=== PATIENT | male | born 1970 | race Caucasian/White ===

== ENCOUNTER → 2016-11-20 | Outpatient (CLI) | payer OTHER ==
[~2016-11-20] MED LIST: ACET-1311 PO; ALBUAER19 INH; AMPH10TA2 PO; AMPH30TA2 PO; CYCL10TA6 PO; ERGO1CAP35 PO; FLM4 PO; GABA-113 PO; HMLI SC; INSUINJ12 SC; LACT1CAP6 PO; LIRA18IN SQ; METF-384 PO; POTA1080 PO; XRL10 PO
[2016-11-20 11:47] LABS: BASO % 0.1 %; BASO ABS # 0.01 K/uL (0-0.2); COMPLETE YES; EOS % 2.8 %; HEMATOCRIT 41.2 % (42-52); IG% 0.5 %; LYMPH % 27.4 %; LYMPH ABS # 2.61 K/uL (1.2-3.4); MEAN CELL VOLUME 83.7 fL (80-100); MEAN CORPUSCULAR HEMOGLOBIN 30.3 pg (25-34); MEAN CORPUSCULAR HGB CONC 36.2 g/dl (32-36); MEAN PLATELET VOLUME 9.5 fL (7.4-10.4); MONO % 9.6 %; NEUT % 59.6 %; PLATELET COUNT 268 K/uL (130-400); RED BLOOD COUNT 4.92 M/uL (4.7-6.1); WHITE BLOOD COUNT 9.52 K/uL (4.8-10.8)
[2016-11-20 12:14] LABS: ESTIMATED AVERAGE GLUCOSE 183 mg/dl; HA1C FLAG Normal (Normal)
[2016-11-20 12:16] LABS: ALT/SGPT 20 U/L (12-78); AST/SGOT 13 U/L (15-37); BLOOD UREA NITROGEN 12 mg/dl (7-18); BUN/CREATININE RATIO 14.2 (10-20); CALCIUM 9.1 mg/dl (8.5-10.1); CARBON DIOXIDE 21 mmol/L (21-32); CHLORIDE 104 mmol/L (98-107); CREATININE 0.83 mg/dl (0.60-1.40); GLUCOSE 297 mg/dl (70-99); POTASSIUM 4.2 mmol/L (3.5-5.1); SODIUM 136 mmol/L (136-145)
[2016-11-20 12:18] LABS: ALB/GLOB RATIO 0.8 (0.9-2); ALKALINE PHOSPHATASE 117 U/L (45-117)
== END | disposition home or self-care (01) ==
LOC: C.LAB1850 10:46
PROVIDERS: ATTEND Internal Medicine
DX: N20.0 Calculus of kidney (principal); E55.9 Vitamin D deficiency, unspecified; E11.9 Type 2 diabetes mellitus without complications

== ENCOUNTER 2016-12-19 15:56 | Emergency (ER) | payer OTHER ==
[~2016-12-19] VITALS: Ht 188 cm; Wt 168.1 kg
[~2016-12-19 15:56] MED LIST changes: -CYCL10TA6 PO
[2016-12-19 16:05] VITALS: TEMP 36.5; Ht 188 cm; Wt 168.1 kg
[2016-12-19] MEDS ORDERED: CYCLOBENZAPRINE HCL 5 MG TAB PO ONE (16:45)
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
[2016-12-19 18:20] VITALS: BP 138/88; PULSE 87; O2SAT 98
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
[2016-12-19] MEDS ORDERED: CYCL10TA6 PO (18:31)
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
== END 2016-12-19 18:39 | disposition home or self-care (01) ==
LOC: EDBD 15:56 → C.EDB 15:57
DX: M54.2 Cervicalgia (principal); M54.6 Pain in thoracic spine; V43.52XA Car driver injured in collision with other type car in traffic accident, initial encounter; Y93.89 Activity, other specified; Y99.8 Other external cause status; E66.01 Morbid (severe) obesity due to excess calories; E11.42 Type 2 diabetes mellitus with diabetic polyneuropathy; Z68.42 Body mass index [BMI] 45.0-49.9, adult; F90.9 Attention-deficit hyperactivity disorder, unspecified type; Z72.0 Tobacco use; Z86.718 Personal history of other venous thrombosis and embolism; Z90.49 Acquired absence of other specified parts of digestive tract; Z89.439 Acquired absence of unspecified foot; Z79.01 Long term (current) use of anticoagulants; Z79.4 Long term (current) use of insulin; Z79.84 Long term (current) use of oral hypoglycemic drugs; Z79.899 Other long term (current) drug therapy

== ENCOUNTER → 2018-01-13 | Outpatient (CLI) | payer OTHER ==
--- NOTE | 2018-01-13 16:53 | DIAGNOSTIC IMAGING REPORT ---
BILATERAL LOWER EXTREMITY VENOUS DOPPLER CLINICAL HISTORY: Bilateral leg numbness. Decreased circulation. COMPARISON STUDY: Bilateral lower extremity venous Doppler December 13, 2015. TECHNIQUE: Sonography of the deep venous system of the bilateral lower extremities was performed. Compression and augmentation were evaluated. FINDINGS: This study is significantly compromised due to suboptimal penetration. The right common femoral, superficial femoral and popliteal veins are patent. There is suspected nonocclusive thrombus within the right posterior tibial and peroneal veins. There is nonocclusive thrombus within the left superficial femoral, profunda, popliteal, posterior tibial and peroneal veins. These vessels are not expanded. This thrombus is nonocclusive. Of note, thrombus was shown within these vessels on exam of December 13, 2015. IMPRESSION: Nonocclusive deep venous thrombus within the left superficial femoral, popliteal, posterior tibial and peroneal veins and within the right posterior tibial and peroneal veins. Evaluation is difficult given suboptimal penetration. This thrombus is age indeterminate however chronic thrombus is favored. Electronically signed by: Keagan Guthrie M.D. 01/13/2018 4:51 PM Dictated Date/Time: 01/13/2018 4:48 PM
--- NOTE | 2018-01-13 17:02 | DIAGNOSTIC IMAGING REPORT ---
BILATERAL LOWER EXTREMITY ARTERIAL DOPPLER ULTRASOUND CLINICAL HISTORY: Bilateral leg numbness. Decreased circulation. COMPARISON STUDY: No previous studies for comparison. TECHNIQUE: Grayscale and color and duplex Doppler sonography of the arterial systems of both lower extremity was performed. FINDINGS: The patient deferred ankle to brachial indices. This exam is compromised due to suboptimal penetration related to body habitus. Enlarged bilateral inguinal lymph nodes are unchanged from earlier exams. There is triphasic flow within the right common femoral, superficial femoral, popliteal, anterior tibial arteries. There is monophasic flow within the right posterior tibial and peroneal arteries with biphasic flow within the right dorsalis pedis. Mild atherosclerotic plaque is noted. There is biphasic flow within left common femoral artery. There is biphasic flow within the left superficial femoral, popliteal, anterior tibial arteries with monophasic flow within the left peroneal and dorsalis pedis. No elevated velocities were identified. IMPRESSION: 1. Exam compromised due to suboptimal penetration. 2. Mild atherosclerotic plaque without evidence for hemodynamically significant stenosis within either lower extremity. 3. Monophasic flow within multiple calf vessels, as described above. No vessel occlusion identified. 4. No change in enlarged bilateral inguinal lymph nodes which contain fatty twin. Electronically signed by: Keagan Guthrie M.D. 01/13/2018 5:01 PM Dictated Date/Time: 01/13/2018 4:56 PM
== END | disposition home or self-care (01) ==
LOC: C.ULTR 14:54
PROVIDERS: ATTEND Physician Assistant
DX: M79.672 Pain in left foot (principal); L89.899 Pressure ulcer of other site, unspecified stage; I82.412 Acute embolism and thrombosis of left femoral vein; I82.432 Acute embolism and thrombosis of left popliteal vein; I82.443 Acute embolism and thrombosis of tibial vein, bilateral; I82.493 Acute embolism and thrombosis of other specified deep vein of lower extremity, bilateral

== ENCOUNTER 2021-07-31 18:17 | Inpatient (IN) ==
[~2021-07-31 18:17] MED LIST changes: -ACET-1311 PO; -ALBUAER19 INH; -AMPH10TA2 PO; -AMPH30TA2 PO; -ERGO1CAP35 PO; +ETOMIDATE 2 MG/ML 20 ML VIAL IV ONE; -FLM4 PO; -GABA-113 PO; -HMLI SC; -INSUINJ12 SC; -LACT1CAP6 PO; -LIRA18IN SQ; -METF-384 PO; -POTA1080 PO; -XRL10 PO
[2021-07-31] MEDS ORDERED: ERTAPENEM SODIUM 10 ML IV STA (18:39)
[2021-07-31] MEDS ORDERED: DAPTOMYCIN IV ONE (18:39)
[2021-07-31] MEDS ORDERED: SODIUM CHLORIDE 0.9% 1000ML 1,000 ML IV SCH ×2 (18:45→19:45)
[2021-07-31] MEDS ORDERED: dexAMETHasone**PF** 10 MG/ML VIAL IV ONE (18:52)
[2021-07-31] MEDS ORDERED: ALBUT/IPRATROP 3MG/0.5MG NEB 3 ML VIAL NEB STA (18:52)
--- NOTE | 2021-07-31 18:55 | Emergency Department Note ---
Impression & Plan Sepsis, Dehydration, Cellulitis ED Provider Note NAME: PHILIPP WILLAMS AGE: 51 SEX: M : 1970 ARRIVES VIA: Ambulance INFORMANT: Patient, ED PROVIDER(S): uMshtaq Hernandez MD Chief Complaint: Chills, shortness of breath, cough HPI: Patient does present with the above symptoms. Patient states that he woke up in the middle the night and felt very chilled and has developed a cough. Patient states it is nonproductive. The patient is a non-smoker. Patient denies any abdominal pains or chest pains. The patient is vaccinated for COVID- 19. The patient does not wear oxygen at baseline. The patient states that his leg felt as though it was on fire. The patient does have a known history of PE and is on blood thinning medication Xarelto. The patient states that he has been compliant with his medications. Patient denies any headache or neck pain. The patient denies any abdominal pain nausea or vomiting. The patient has had some bad diarrhea today. Patient denies any recent antibiotic use. ROS: See HPI for pertinent positives and negatives. A total of 10 systems were reviewed and otherwise negative. Past medical history: See below Surgical history: See below Social history: See below Physical Exam: GENERAL: Severe distress, ill in appearance, wearing a mask, nasal cannula in place. EYE EXAM: Normal conjunctiva. PERRL, no anisocoria and EOM's grossly intact w/o pain. NECK: Supple, no nuchal rigidity, no adenopathy, non-tender. No signs of meningismus. LUNGS: Tachypnea, crackles throughout. HEART: Tachycardic and regular, no MRG. ABDOMEN: Abdomen soft, non-tender, normo-active bowel sounds, no masses, no rebound or guarding. BACK: No CVA TTP. SKIN: No rashes and no bruising. UPPER EXTREMITIES: Upper extremities are grossly normal. LOWER EXTREMITIES: Left lower extremity BKA noted, right lower extremity with redness, no crepitus and compartments are soft. NEURO EXAM: A&O x3, cranial nerves II-XII grossly intact, normal speech, moves all 4 extremities on command w/o issue. Differential diagnoses: Reactive airway disease, pneumonia, pneumothorax, COPD, CHF, infections, cardiac ischemia, pulmonary embolism, musculoskeletal, gastrointestinal, as well as other pathologies. Course: Patient was seen and evaluated the bedside. Full history physical exam was performed. [EKG interpreted by me] Sinus tachycardia, rate of 120, normal intervals, no ST changes. Imaging Studies: See Below [Cardiac monitoring: An order was placed for continuous cardiac monitoring. The monitor shows a rate of 125 with tachycardic and regular rhythm.] MDM: Patient was seen due to concern for likely sepsis. Blood work was obtained and the patient was ordered empiric antibiotics. Given the concern for respiratory distress the patient was placed on BiPAP steroids and duo nebs were ordered as well along with IV fluids. The patient did show some symptomatic improvement in his respiratory rate. The patient does have a significant white blood cell count of 31,000. Patient does have a procalcitonin of 34. Slightly low magnesium. Glucose is elevated. Patient does have changes in kidney function. The patient's chest x-ray did show concern for possible volume overload. I did attempt to do a bedside ultrasound but this was difficult to perform but I did think the IVC appeared to be flat. Difficult to visualize cardiac function. Patient did have some scant B-lines in the lungs but believe this certainly could be secondary to the patient's infectious process. The patient does have lactic acidosis with a troponin of 18. The patient is not complained of chest pains only shortness of breath. Patient's EKG morphology appears grossly unchanged. I did speak with Dr. Sara tijerina given the lack of chest pain and overt EKG changes would not start heparin. I did speak with the on-call hospitalist Dr. Caceres and the patient was admitted to the medicine service. The patient does not have findings consistent with necrotizing fasciitis of the right lower extremity. The patient certainly could have a cellulitis. Patient does not complain of any abdominal pain. Do not believe the patient has mesenteric ischemia. Past Med/Surg History Medical History Depression Diabetes type 2, uncontrolled Diabetic peripheral neuropathy associated with type 2 diabetes mellitus DVT (deep venous thrombosis) (08/16/13) Dysesthesia Dyslipidemia Hypertension Personal history of diabetic foot ulcer Vitamin D deficiency Surgical History S/P hernia repair S/P PICC central line placement with removal S/P rotator cuff repair Family History Aunt No problems noted. Grandmother (Maternal) Throat cancer Myocardial infarction Grandfather (Maternal) Myocardial infarction Other Coronary heart disease Diabetes No pertinent family history Denies family history of Ovarian cancer Prostate cancer Breast cancer Colorectal cancer Social History Smoking Status: Never smoker Tobacco Type: Cigarettes Hx Alcohol Use: No Hx Substance Use: No Preferred Language: Guinean Communication Ability: Unable Beliefs That Will Affect Care: None marital status: Current Living Situation: Spouse current occupational status: disabled How many Children do You have: 2 Feels Safe at Home: Yes Safety Concerns: Feels Safe At This Time Physical Activity Frequency: Does not Exercise Seatbelt Use: always Sunscreen Use: Yes Assistive Devices: Walker and Wheelchair Allergies Allergies Allergy/AdvReac Type Severity Reaction Status Date / Time clindamycin Allergy Intermediate Hives Verified 07/31/21 20:35 cefepime Allergy Mild RASH-POSSIBLY Verified 07/31/21 20:35 DUE TO CEFEPIME vancomycin AdvReac Intermediate KYE Verified 07/31/21 20:35 SYNDROME piperacillin [From Zosyn] AdvReac Mild skin rash, Verified 07/31/21 20:35 itching, mild tazobactam [From Zosyn] AdvReac Mild skin rash, Verified 07/31/21 20:35 itching, mild Home Meds Previous Rx's Medication Instructions Recorded pen needle, diabetic 29 gauge x #100 ea 03/14/20 1/2" (Comfort EZ Pen Hickman) semaglutide 1 mg/dose (2 mg/1.5 1 mg SQ WEEKLY #3 ml 03/19/20 mL) subcutaneous pen injector (Ozempic) cane #1 ea 08/03/20 blood sugar diagnostic (OneTouch #100 ea 09/05/20 Ultra Blue Test Strip) fluoxetine 20 mg capsule 60 mg PO DAILY #270 cap 12/06/20 cholecalciferol (vitamin D3) 125 5,000 unit PO DAILY #90 tab 01/14/21 mcg (5,000 unit) tablet (Vitamin D3) insulin aspar prot-insulin aspart 60 - 100 unit SUBCUT TID #75 ml 01/14/21 100 unit/mL (70-30) subcutaneous pen (Novolog Mix 70-30FlexPen U-100) albuterol sulfate 90 mcg/actuation 2 puff INHALATION Q6H PRN #18 gm 03/12/21 aerosol inhaler (Ventolin HFA) gabapentin 600 mg tablet 600 mg PO DAILY #90 tab 03/26/21 lisinopril 2.5 mg tablet 2.5 mg PO DAILY #90 tab 03/26/21 venlafaxine 75 mg capsule,extended 75 mg PO DAILY #90 cap 03/26/21 release 24 hr (Effexor XR) furosemide 40 mg tablet (Lasix) 40 mg PO BID #180 tab 04/25/21 rosuvastatin 5 mg tablet 5 mg PO DAILY #90 tab 04/30/21 Dexcom G6 Stakes Player (blood-glucose #1 ea NS 07/16/21 meter,continuous) Dexcom G6 Sensor (blood-glucose #3 ea NS 07/16/21 sensor) Dexcom G6 Transmitter #1 ea NS 07/16/21 (blood-glucose transmitter) cetirizine 10 mg tablet 10 mg PO DAILY #90 tab 07/25/21 doxepin 10 mg capsule 10 mg PO DAILY #30 cap 07/25/21 hydroxyzine HCl 25 mg tablet 25 mg PO DAILY PRN #30 tab 07/25/21 rivaroxaban 20 mg tablet 20 mg PO QAM #90 tab 07/26/21 semaglutide (weight loss) 1.7 1.7 mg SUBCUT Q7D #3 ml 07/26/21 mg/0.75 mL subcutaneous pen injector (Weyessyvy) topiramate 25 mg tablet 25 mg PO HS #60 tab 07/31/21 Results & Data (ED) Vital Signs Vital Signs - 24 hr 07/31/21 18:28 07/31/21 18:37 07/31/21 18:43 Temperature 39.3 C H Temperature Source Oral Pulse Rate 118 H 126 H 119 H Pulse Rate [Finger] Pulse Rate from SpO2 Sensor 126 H Respiratory Rate 44 H 40 H 38 H Respiratory Effort / Characteristics Labored Spontaneous Labored Short of Breath Respiratory Depth Respiratory Pattern Tachypnea Blood Pressure 133/67 Blood Pressure Mean 89 Pulse Oximetry 91 95 98 Oxygen Delivery Method Room Air Fraction of Inspired Oxygen 30 Sepsis Recent Fever Within 48 Hours Yes Sepsis New/Unexplained Change in Mental Status N/A Sepsis Action Taken by Nursing Physician Notified 07/31/21 19:11 07/31/21 19:16 07/31/21 19:30 Temperature Temperature Source Pulse Rate 118 H 126 H Pulse Rate [Finger] 118 H Pulse Rate from SpO2 Sensor 122 H 126 H Respiratory Rate 38 H 26 H Respiratory Effort / Characteristics Spontaneous Labored Short of Breath Respiratory Depth Deep Respiratory Pattern Tachypnea Blood Pressure Blood Pressure Mean Pulse Oximetry 96 96 97 Oxygen Delivery Method BiPAP Fraction of Inspired Oxygen 30 Sepsis Recent Fever Within 48 Hours Sepsis New/Unexplained Change in Mental Status Sepsis Action Taken by Nursing 07/31/21 20:00 07/31/21 20:20 07/31/21 20:30 Temperature Temperature Source Pulse Rate 119 H 126 H Pulse Rate [Finger] Pulse Rate from SpO2 Sensor 119 H 116 H Respiratory Rate 33 H 29 H Respiratory Effort / Characteristics Spontaneous Labored Short of Breath Respiratory Depth Deep Respiratory Pattern Tachypnea Blood Pressure Blood Pressure Mean Pulse Oximetry 97 98 98 Oxygen Delivery Method Fraction of Inspired Oxygen 30 Sepsis Recent Fever Within 48 Hours Sepsis New/Unexplained Change in Mental Status Sepsis Action Taken by Nursing 07/31/21 21:00 07/31/21 21:30 07/31/21 21:50 Temperature Temperature Source Pulse Rate 119 H 116 H Pulse Rate [Finger] Pulse Rate from SpO2 Sensor 118 H 119 H Respiratory Rate 30 H 30 H Respiratory Effort / Characteristics Spontaneous Respiratory Depth Deep Respiratory Pattern Blood Pressure 128/61 Blood Pressure Mean 83 Pulse Oximetry 97 97 95 Oxygen Delivery Method Fraction of Inspired Oxygen 30 Sepsis Recent Fever Within 48 Hours Sepsis New/Unexplained Change in Mental Status Sepsis Action Taken by Jail Medications Current Medication List: was personally reviewed by me Laboratory Data Attestation: I reviewed the patient's lab results. Result diagrams: 07/31/21 19:00 07/31/21 19:00 Lab Results 07/31/21 07/31/21 07/31/21 Range/Units 18:35 19:00 19:00 WBC 31.17 H* (4.8-10.8) K/uL RBC 4.92 (4.7-6.1) M/uL Hgb 15.2 (14.0-18.0) g/dL Hct 42.6 (42-52) % MCV 86.6 (80-100) fL MCH 30.9 (25-34) pg MCHC 35.7 (32-36) g/dL RDW Std Deviation 43.7 (36.4-46.3) fL RDW Coeff of Wil 13.8 (11.5-14.5) % Plt Count 200 (130-400) K/uL MPV 9.6 (7.4-10.4) fL Immature Gran % (Auto) 2.2 % Neut % (Auto) 91.4 % Lymph % (Auto) 1.8 % [place] % (Auto) 4.6 % Eos % (Auto) 0.0 % Baso % (Auto) 0.0 % Neut # (Auto) 28.48 H (1.4-6.5) K/uL Lymph # (Auto) 0.55 L (1.2-3.4) K/uL [place] # (Auto) 1.42 H (0.11-0.59) K/uL Eos # (Auto) 0.01 (0-0.5) K/uL Baso # (Auto) 0.01 (0-0.2) K/uL Immature Gran # (Auto) 0.70 H (0.00-0.02) K/uL Polychromasia 1+ PT 13.1 H (9.0-12.0) Seconds INR 1.3 H (0.9-1.1) APTT 26.2 (21.0-31.0) Seconds PTT Ratio 1.0 Sodium (136-145) mmol/L Potassium (3.5-5.1) mmol/L Chloride (98-107) mmol/L Carbon Dioxide (21-32) mmol/L Anion Gap (3-11) BUN (7-18) mg/dl Creatinine (0.6-1.4) mg/dl Est Cr Clr Drug Dosing ml/min Est GFR ( Amer) ml/min Est GFR (Non-Af Amer) ml/min BUN/Creatinine Ratio (10-20) Glucose (70-99) mg/dl Lactate (0.4-2.0) mmol/L Calcium (8.5-10.1) mg/dl Magnesium (1.8-2.4) mg/dl Total Bilirubin (0.2-1) mg/dl AST (15-37) U/L ALT (12-78) U/L Alkaline Phosphatase (45-117) U/L Troponin I (0-0.045) ng/ml Total Protein (6.4-8.2) gm/dl Albumin (3.4-5.0) gm/dl Globulin (2.5-4.0) gm/dl Albumin/Globulin Ratio (0.9-2) Beta-Hydroxybutyric Acd (0.2-2.81) mg/dl Procalcitonin (0-0.5) ng/ml Urine Color Dark Yellow Urine Appearance Cloudy A (Clear) Urine pH 5.0 (4.5-7.5) Ur Specific [place] 1.018 (1.000-1.030) Urine Protein 1+ H (Negative) Urine Glucose (UA) Negative (Negative) Urine Ketones Trace H (Negative) Urine Blood 2+ H (Negative) Urine Nitrite Negative (Negative) Urine Bilirubin 1+ H (Negative) Urine Urobilinogen Negative (Negative) Ur Leukocyte Esterase Trace H (Negative) Urine WBC (Auto) 10-30 H (0-5) /hpf Urine RBC (Auto) 0-4 (0-4) /hpf U Hyaline Cast (Auto) 1-5 (0-5) /lpf U Epithel Cells (Auto) >30 H (0-5) /lpf Urine Bacteria (Auto) Negative (Negative) Ur Renal Epithelial Cell Not Reportable Calcium Oxalate Crystal Present A (None Prsent) Urine Yeast Not Reportable Urine Sperm Present A (None Prsent) Adenovirus (PCR) (NotDetected) B. pertussis DNA (PCR) (NotDetected) B.parapertussis DNA PCR (NotDetected) C. pneumoniae DNA (PCR) (NotDetected) Coronavirus OC43 (PCR) (NotDetected) Coronavirus HKU1 (PCR) (NotDetected) Coronavirus 229E (PCR) (NotDetected) COVID-19 Eval Order SARS-CoV-2 (PCR) (NotDetected) Coronavirus NL63 (PCR) (NotDetected) Human Metapneumovir PCR (NotDetected) Influenza Type A (PCR) (NotDetected) Influenza Type B (PCR) (NotDetected) M. pneumoniae (PCR) (NotDetected) Parainfluenza 1 (PCR) (NotDetected) Parainfluenza 2 (PCR) (NotDetected) Parainfluenza 3 (PCR) (NotDetected) Parainfluenza 4 (PCR) (NotDetected) RSV (PCR) (NotDetected) Entero/Rhino (PCR) (NotDetected) 07/31/21 07/31/21 07/31/21 Range/Units 19:00 19:00 19:05 WBC (4.8-10.8) K/uL RBC (4.7-6.1) M/uL Hgb (14.0-18.0) g/dL Hct (42-52) % MCV (80-100) fL MCH (25-34) pg MCHC (32-36) g/dL RDW Std Deviation (36.4-46.3) fL RDW Coeff of Wil (11.5-14.5) % Plt Count (130-400) K/uL MPV (7.4-10.4) fL Immature Gran % (Auto) % Neut % (Auto) % Lymph % (Auto) % [place] % (Auto) % Eos % (Auto) % Baso % (Auto) % Neut # (Auto) (1.4-6.5) K/uL Lymph # (Auto) (1.2-3.4) K/uL [place] # (Auto) (0.11-0.59) K/uL Eos # (Auto) (0-0.5) K/uL Baso # (Auto) (0-0.2) K/uL Immature Gran # (Auto) (0.00-0.02) K/uL Polychromasia PT (9.0-12.0) Seconds INR (0.9-1.1) APTT (21.0-31.0) Seconds PTT Ratio Sodium 127 L (136-145) mmol/L Potassium 4.6 (3.5-5.1) mmol/L Chloride 96 L (98-107) mmol/L Carbon Dioxide 18 L (21-32) mmol/L Anion Gap 13.0 H (3-11) BUN 33 H (7-18) mg/dl Creatinine 2.40 H (0.6-1.4) mg/dl Est Cr Clr Drug Dosing 65.0 ml/min Est GFR ( Amer) 34.4 ml/min Est GFR (Non-Af Amer) 29.7 ml/min BUN/Creatinine Ratio 13.7 (10-20) Glucose 312 H* (70-99) mg/dl Lactate 5.0 H* (0.4-2.0) mmol/L Calcium 8.7 (8.5-10.1) mg/dl Magnesium 1.2 L (1.8-2.4) mg/dl Total Bilirubin 1.4 H (0.2-1) mg/dl AST 131 H (15-37) U/L ALT 47 (12-78) U/L Alkaline Phosphatase 64 (45-117) U/L Troponin I 18.600 H* (0-0.045) ng/ml Total Protein 7.5 (6.4-8.2) gm/dl Albumin 3.1 L (3.4-5.0) gm/dl Globulin 4.4 H (2.5-4.0) gm/dl Albumin/Globulin Ratio 0.7 L (0.9-2) Beta-Hydroxybutyric Acd 2.99 H (0.2-2.81) mg/dl Procalcitonin 34.07 H (0-0.5) ng/ml Urine Color Urine Appearance (Clear) Urine pH (4.5-7.5) Ur Specific [place] (1.000-1.030) Urine Protein (Negative) Urine Glucose (UA) (Negative) Urine Ketones (Negative) Urine Blood (Negative) Urine Nitrite (Negative) Urine Bilirubin (Negative) Urine Urobilinogen (Negative) Ur Leukocyte Esterase (Negative) Urine WBC (Auto) (0-5) /hpf Urine RBC (Auto) (0-4) /hpf U Hyaline Cast (Auto) (0-5) /lpf U Epithel Cells (Auto) (0-5) /lpf Urine Bacteria (Auto) (Negative) Ur Renal Epithelial Cell Calcium Oxalate Crystal (None Prsent) Urine Yeast Urine Sperm (None Prsent) Adenovirus (PCR) (NotDetected) B. pertussis DNA (PCR) (NotDetected) B.parapertussis DNA PCR (NotDetected) C. pneumoniae DNA (PCR) (NotDetected) Coronavirus OC43 (PCR) (NotDetected) Coronavirus HKU1 (PCR) (NotDetected) Coronavirus 229E (PCR) (NotDetected) COVID-19 Eval Order SARS-CoV-2 (PCR) (NotDetected) Coronavirus NL63 (PCR) (NotDetected) Human Metapneumovir PCR (NotDetected) Influenza Type A (PCR) (NotDetected) Influenza Type B (PCR) (NotDetected) M. pneumoniae (PCR) (NotDetected) Parainfluenza 1 (PCR) (NotDetected) Parainfluenza 2 (PCR) (NotDetected) Parainfluenza 3 (PCR) (NotDetected) Parainfluenza 4 (PCR) (NotDetected) RSV (PCR) (NotDetected) Entero/Rhino (PCR) (NotDetected) 07/31/21 07/31/21 07/31/21 Range/Units 19:10 19:10 21:09 WBC (4.8-10.8) K/uL RBC (4.7-6.1) M/uL Hgb (14.0-18.0) g/dL Hct (42-52) % MCV (80-100) fL MCH (25-34) pg MCHC (32-36) g/dL RDW Std Deviation (36.4-46.3) fL RDW Coeff of Wil (11.5-14.5) % Plt Count (130-400) K/uL MPV (7.4-10.4) fL Immature Gran % (Auto) % Neut % (Auto) % Lymph % (Auto) % [place] % (Auto) % Eos % (Auto) % Baso % (Auto) % Neut # (Auto) (1.4-6.5) K/uL Lymph # (Auto) (1.2-3.4) K/uL [place] # (Auto) (0.11-0.59) K/uL Eos # (Auto) (0-0.5) K/uL Baso # (Auto) (0-0.2) K/uL Immature Gran # (Auto) (0.00-0.02) K/uL Polychromasia PT (9.0-12.0) Seconds INR (0.9-1.1) APTT (21.0-31.0) Seconds PTT Ratio Sodium (136-145) mmol/L Potassium (3.5-5.1) mmol/L Chloride (98-107) mmol/L Carbon Dioxide (21-32) mmol/L Anion Gap (3-11) BUN (7-18) mg/dl Creatinine (0.6-1.4) mg/dl Est Cr Clr Drug Dosing ml/min Est GFR ( Amer) ml/min Est GFR (Non-Af Amer) ml/min BUN/Creatinine Ratio (10-20) Glucose (70-99) mg/dl Lactate 4.2 H* (0.4-2.0) mmol/L Calcium (8.5-10.1) mg/dl Magnesium (1.8-2.4) mg/dl Total Bilirubin (0.2-1) mg/dl AST (15-37) U/L ALT (12-78) U/L Alkaline Phosphatase (45-117) U/L Troponin I (0-0.045) ng/ml Total Protein (6.4-8.2) gm/dl Albumin (3.4-5.0) gm/dl Globulin (2.5-4.0) gm/dl Albumin/Globulin Ratio (0.9-2) Beta-Hydroxybutyric Acd (0.2-2.81) mg/dl Procalcitonin (0-0.5) ng/ml Urine Color Urine Appearance (Clear) Urine pH (4.5-7.5) Ur Specific [place] (1.000-1.030) Urine Protein (Negative) Urine Glucose (UA) (Negative) Urine Ketones (Negative) Urine Blood (Negative) Urine Nitrite (Negative) Urine Bilirubin (Negative) Urine Urobilinogen (Negative) Ur Leukocyte Esterase (Negative) Urine WBC (Auto) (0-5) /hpf Urine RBC (Auto) (0-4) /hpf U Hyaline Cast (Auto) (0-5) /lpf U Epithel Cells (Auto) (0-5) /lpf Urine Bacteria (Auto) (Negative) Ur Renal Epithelial Cell Calcium Oxalate Crystal (None Prsent) Urine Yeast Urine Sperm (None Prsent) Adenovirus (PCR) Not Detected (NotDetected) B. pertussis DNA (PCR) Not Detected (NotDetected) B.parapertussis DNA PCR Not Detected (NotDetected) C. pneumoniae DNA (PCR) Not Detected (NotDetected) Coronavirus OC43 (PCR) Not Detected (NotDetected) Coronavirus HKU1 (PCR) Not Detected (NotDetected) Coronavirus 229E (PCR) Not Detected (NotDetected) COVID-19 Eval Order [facility]NP at [facility] SARS-CoV-2 (PCR) Not Detected (NotDetected) Coronavirus NL63 (PCR) Not Detected (NotDetected) Human Metapneumovir PCR Not Detected (NotDetected) Influenza Type A (PCR) Not Detected (NotDetected) Influenza Type B (PCR) Not Detected (NotDetected) M. pneumoniae (PCR) Not Detected (NotDetected) Parainfluenza 1 (PCR) Not Detected (NotDetected) Parainfluenza 2 (PCR) Not Detected (NotDetected) Parainfluenza 3 (PCR) Not Detected (NotDetected) Parainfluenza 4 (PCR) Not Detected (NotDetected) RSV (PCR) Not Detected (NotDetected) Entero/Rhino (PCR) Not Detected (NotDetected) Administered Medications Magnesium Sulfate/Dextrose (Magnesium Sulfate / D5w) 1 gm in 100 mls @ 50 mls/hr IV Q2H [facility] Stop: 08/01/21 03:29 Last Admin: 07/31/21 23:45 Dose: 50 mls/hr Documented by: [id number] Infusion: 07/31/21 23:22 Dose: 50 mls/hr Documented by: [id number] Admin: 07/31/21 21:22 Dose: 50 mls/hr Documented by: [id number] Insulin Human Regular 250 (units/ Sodium Chloride) 250 mls @ 5 mls/hr IV .Q24H ST[facility]LEY; Protocol Stop: 08/30/21 21:59 Last Admin: 07/31/21 23:31 Dose: 5 units/hr, 5 mls/hr Documented by: [id number] Cosigned by: [id number] Heparin Sodium/Dextrose (Heparin Sodium/Dextrose) 25,000 units in 500 mls @ 20 mls/hr IV .Q24H [facility]; Protocol Stop: 08/30/21 23:14 Last Admin: 07/31/21 23:34 Dose: 1,000 units/hr, 20 mls/hr Documented by: [id number] Cosigned by: [id number] Famotidine 20 mg/ Syringe 5 mls @ 2.5 mls/min IV Q12 [facility] Stop: 08/30/21 23:05 Last Admin: 07/31/21 23:32 Dose: 2.5 mls/min Documented by: [id number] Linezolid (Zyvox) 600 mg in 300 mls @ 200 mls/hr IV Q12H [facility]; Protocol Stop: 08/08/21 00:00 Last Admin: 07/31/21 23:57 Dose: 200 mls/hr Documented by: [id number] Discontinued Medications Albuterol (Albut/Ipratrop 3mg/0.5mg Neb 3 Ml Vial) 6 ml NEB NOW STA Stop: 07/31/21 18:53 Last Admin: 07/31/21 19:10 Dose: 6 ml Documented by: [id number] Dexamethasone Sodium Phosphate (DexamethasonePf 10 Mg/Ml Vial) 10 mg IV NOW ONE Stop: 07/31/21 18:53 Last Admin: 07/31/21 19:18 Dose: 10 mg Documented by: [id number] Sodium Chloride (Nss 1000ml) 1,000 mls @ 999 mls/hr IV .Q1H1M [place] Stop: 07/31/21 19:39 Last Admin: 07/31/21 19:49 Dose: 999 mls/hr Documented by: [id number] Sodium Chloride (Nss 1000ml) 1,000 mls @ 999 mls/hr IV .Q1H1M [place] Stop: 07/31/21 20:45 Last Admin: 07/31/21 21:13 Dose: Not Given Documented by: [id number] Ertapenem (Invanz) 10 mls @ 2 mls/min IV NOW STA Stop: 07/31/21 18:43 Last Admin: 07/31/21 19:48 Dose: 2 mls/min Documented by: [id number] Daptomycin 775 mg/ Syringe 15.5 mls @ 7.75 mls/min IV ONE ONE; Protocol Stop: 07/31/21 19:31 Last Admin: 07/31/21 19:49 Dose: 7.75 mls/min Documented by: [id number] Acetaminophen (Ofirmev) 1,000 mg in 100 mls @ 400 mls/hr IV NOW STA Stop: 07/31/21 20:47 Last Infusion: 07/31/21 23:26 Dose: 0 mls/hr Documented by: [id number] Admin: 07/31/21 21:00 Dose: 400 mls/hr Documented by: [id number] Insulin Human Regular 5 units/ (Syringe) 5 mls @ 0 mls/min IV 2330 ONE Stop: 07/31/21 23:31 Last Admin: 07/31/21 23:31 Dose: 5 mls/min Documented by: [id number] Cosigned by: [id number] Miscellaneous (Insulin Protocol Goal Range ) 1 ea N/A ONE ONE Stop: 07/31/21 21:59 Last Admin: 07/31/21 23:32 Dose: 1 ea Documented by: [id number] Miscellaneous (Stat Iv Infusion Titration Per Protocol) 1 ea N/A NOW STA Stop: 07/31/21 21:59 Last Admin: 07/31/21 23:32 Dose: 1 ea Documented by: [id number] Imaging Data Radiologist's Impression: Chest X-Ray 07/31/21 18:39 SINGLE VIEW CHEST CLINICAL HISTORY: Sepsis. FINDINGS: 2 AP, portable, upright chest radiographs are compared to study dated 06/30/2016. The heart is enlarged noting atherosclerotic calcification of the thoracic aorta. There is pulmonary vascular congestion. There are mild bilateral airspace opacities patchy No large pleural effusion or pneumothorax is seen. The skeletal structures appear osteopenic. The bony thorax is grossly intact. IMPRESSION: 1. Cardiomegaly with evidence of congestive failure. 2. Scattered bilateral airspace opacities likely represent mild pulmonary edema. Correlate clinically for evidence of a superimposed infectious/inflammatory pneumonitis. ACT 112: Negative or not required by law. Electronically signed by: Damon Soliz M.D. 07/31/2021 7:[address] 07/31/21 21:48 CT foot RT wo con INDICATION: MN ^Osteomyelitis TECHNIQUE: Multidetector row helical CT of the right foot was performed without intravenous contrast. Coronal and sagittal reformations were obtained. Automated dose lowering techniques and/or adjustment according to patient size were utilized for this examination. Comparison: None available at the time of this dictation. FINDINGS: There is an acute to subacute nondisplaced fracture of the first digit proximal phalanx extending to the first metacarpophalangeal joint. No evidence of focal erosion seen to suggest osteomyelitis. Soft tissue swelling is seen most prominent in the dorsal surface of the foot, compatible with cellulitis. IMPRESSION: 1. Cellulitis without evidence of osteomyelitis. 2. Acute to subacute intra-articular fracture of the first digit proximal phalanx. ACT 112: Negative or not required by law. Electronically signed by: Aroldo Levy M.D. 07/31/2021 11:[address] 07/31/21 21:48 CT tib/fib RT wo con INDICATION: MN ^Osteomyelitis? TECHNIQUE: Multidetector row helical CT of the right tibia and fibula was performed without intravenous contrast. Coronal and sagittal reformations were obtained. Automated dose lowering techniques and/or adjustment according to patient size were utilized for this examination. Comparison: None available at the time of this dictation. FINDINGS: The osseous structures are without fracture or dislocation. No focal lucencies are seen to suggest osteomyelitis. Diffuse soft tissue swelling is seen compatible with cellulitis. Mild narrowing of the joint spaces knee noted. IMPRESSION: Soft tissue swelling compatible with cellulitis without evidence of bony erosion to suggest osteomyelitis. ACT 112: Negative or not required by law. Electronically signed by: Aroldo Levy M.D. 07/31/2021 11:[address] 07/31/21 21:59 CT chest diagnostic wo con INDICATION: MN ^Pulm infiltrates. TECHNIQUE: Multidetector row helical CT of the chest was performed. Coronal and sagittal reformations were obtained. Automated dose lowering techniques and/or adjustment according to patient size were utilized for this exam. Comparison: None available at the time of this dictation. FINDINGS: Lungs and pleura: Atelectasis versus scarring is seen in the dependent portions of the lungs. Heart and pericardium: Heart size is normal. No pericardial effusion. Vessels: Moderate atherosclerotic changes in the aorta and coronary arteries. Mediastinum and twin: Unremarkable. Chest wall and lower neck: Unremarkable. Abdomen: Hepatic steatosis is seen. Multiple splenules are seen. Patient is status post cholecystectomy. There is a small hiatal hernia. Bones: Degenerative changes in the thoracic spine. IMPRESSION: No evidence of pneumonia. Bilateral atelectasis versus scarring is seen. Additional findings as above. ACT 112: Negative or not required by law. Electronically signed by: Aroldo Levy M.D. 07/31/2021 11:07 PM Discharge Plan Visit Data Chief Complaint: Fall Stated Complaint: FALL ED Provider: Mushtaq Hernandez Discharge Problem: Sepsis, Dehydration, Cellulitis Patient Disposition: Admitted As Inpatient Discharge Instructions Interventions: ED Discharge Assessment Last Done: 07/31/21 23:00
[2021-07-31 18:59] LABS: Appearance Urine Cloudy (Clear); Bacteria Urine Automated Negative (Negative); Blood Urine 2+ (Negative); Color Urine Dark Yellow; Epithelial Cell Urine Auto >30 /lpf (0-5); Glucose Urine UA Negative (Negative); Ketones Urine Trace (Negative); Leukocyte Esterase Urine Trace (Negative); Nitrite Urine Negative (Negative); Protein Urine 1+ (Negative); RBC Urine Automated 0-4 /hpf (0-4); Specific Gravity Urine 1.018 (1.000-1.030); Urobilinogen Urine Negative (Negative)
[2021-07-31 19:01] LABS: Bilirubin Urine 1+ (Negative)
--- NOTE | 2021-07-31 19:04 | XRay Report ---
SINGLE VIEW CHEST CLINICAL HISTORY: Sepsis. FINDINGS: 2 AP, portable, upright chest radiographs are compared to study dated 06/30/2016. The heart is enlarged noting atherosclerotic calcification of the thoracic aorta. There is pulmonary vascular c ongestion. There are mild bilateral airspace opacities patchy No large pleural effusion or pneumothor ax is seen. The skeletal structures appear osteopenic. The bony thorax is grossly intact. IMPRESSION: 1. Cardiomegaly with evidence of congestive failure. 2. Scattered bilateral airspace opacities likely represent mild pulmonary edema. Correlate clinically for evidence of a superimposed infectious/inflammatory pneumonitis. ACT 112: Negative or not required by law. Electronically signed by: Damon Soliz M.D. 07/31/2021 7:02 PM
[2021-07-31 19:08] LABS: Calcium Oxalate Crystals Urine Present (None Prsent); Sperm Urine Present (None Prsent)
[2021-07-31] MEDS ORDERED: DAPTOmycin 775 MG in SYRINGE 0 ML IV ONE (19:30)
[2021-07-31 19:33] LABS: INR 1.3 (0.9-1.1); Partial Thromboplastin Time 26.2 Seconds (21.0-31.0); Prothrombin Time 13.1 Seconds (9.0-12.0)
[2021-07-31 19:47] LABS: Albumin Globulin Ratio 0.7 (0.9-2); Albumin Level 3.1 gm/dl (3.4-5.0); BUN Creatinine Ratio 13.7 (10-20); Bilirubin,Total 1.4 mg/dl (0.2-1); Calcium 8.7 mg/dl (8.5-10.1); Est GFR (African American) 34.4 ml/min; Est GFR (Non-African American) 29.7 ml/min; Globulin 4.4 gm/dl (2.5-4.0); Magnesium 1.2 mg/dl (1.8-2.4); Potassium 4.6 mmol/L (3.5-5.1); Total Protein 7.5 gm/dl (6.4-8.2); Troponin I 18.6 ng/ml (0-0.045)
[2021-07-31 20:00] LABS: Beta-Hydroxybutyrate 2.99 mg/dl (0.2-2.81)
[2021-07-31 20:10] LABS: Hematocrit (blood only) 42.6 % (42-52); Hemoglobin 15.2 g/dL (14.0-18.0); Mean Corpuscular Hemoglobin 30.9 pg (25-34); Mean Corpuscular Hgb Conc 35.7 g/dL (32-36); Mean Corpuscular Volume 86.6 fL (80-100); Mean Platelet Volume 9.6 fL (7.4-10.4); Platelet Count 200 K/uL (130-400); RDW Coefficient of Variation 13.8 % (11.5-14.5); RDW Standard Deviation 43.7 fL (36.4-46.3); Red Blood Count 4.92 M/uL (4.7-6.1); White Blood Count 31.17 K/uL (4.8-10.8)
[2021-07-31 20:11] LABS: Basophils # (auto) 0.01 K/uL (0-0.2); Eosinophils # (auto) 0.01 K/uL (0-0.5); Immature Granulocytes % (auto) 2.2 %; Lymphocytes # (auto) 0.55 K/uL (1.2-3.4); Lymphocytes % (auto) 1.8 %; Monocytes # (auto) 1.42 K/uL (0.11-0.59); Monocytes % (auto) 4.6 %; Neutrophils # (auto) 28.48 K/uL (1.4-6.5); Neutrophils % (auto) 91.4 %; Polychromasia 1+
[2021-07-31] MEDS ORDERED: ACETAMINOPHEN 1,000 MG/100 ML VIAL IV STA (20:33)
[2021-07-31] MEDS ORDERED: SODIUM CHLORIDE 0.9% 1000ML 500 ML IV ONE (20:33)
[2021-07-31 20:46] LABS: Adenovirus PCR Not Detected (NotDetected); Bordetella parapertussis PCR Not Detected (NotDetected); Bordetella pertussis PCR Not Detected (NotDetected); Chlamydia pneumoniae PCR Not Detected (NotDetected); Coronavirus 229E PCR Not Detected (NotDetected); Coronavirus CoV-2 (COVID19)PCR Not Detected (NotDetected); Coronavirus HKU1 PCR Not Detected (NotDetected); Coronavirus NL63 PCR Not Detected (NotDetected); Coronavirus OC43PCR Not Detected (NotDetected); Human Metapneumovirus PCR Not Detected (NotDetected); Influenza A PCR Not Detected (NotDetected); Influenza B PCR Not Detected (NotDetected); Mycoplasma pneumoniae PCR Not Detected (NotDetected); Parainfluenza Virus 1 PCR Not Detected (NotDetected); Parainfluenza Virus 2 PCR Not Detected (NotDetected); Parainfluenza Virus 3 PCR Not Detected (NotDetected); Parainfluenza Virus 4 PCR Not Detected (NotDetected); Respiratory Syncytial VirusPCR Not Detected (NotDetected); Rhinovirus/Enterovirus PCR Not Detected (NotDetected)
[2021-07-31] MEDS ORDERED: LINEZOLID CONSULT ACTIVE PRN (20:54)
[2021-07-31] MEDS ORDERED: LINEZOLID 600 MG/300 ML D5W IV SCH (21:00)
[2021-07-31] MEDS: MAGNESIUM SULFATE / D5W 1 GM/100 ML BAG IV SCH ×2 (21:22→23:45)
[2021-07-31] MEDS ORDERED: INSULIN PROTOCOL GOAL RANGE ONE (21:58)
[2021-07-31] MEDS ORDERED: STAT IV Infusion **Titration per Protocol STA (21:58)
[2021-07-31] MEDS ORDERED: Heparin IV Adult Wt-Based Low-Dose *NO* Bolus Protocol IV SCH (22:05)
[2021-07-31] MEDS ORDERED: LINEZOLID 600 MG/300 ML BAG IV SCH (22:30)
[2021-07-31 22:33] LABS: iSTAT Arterial Blood Gas HCO3 18 meg/L (19-24); iSTAT Arterial Blood Gas pCO2 32 mmHg (35-46); iSTAT Arterial Blood Gas pH 7.35 (7.35-7.45); iSTAT Arterial Blood Gas pO2 40 mmHg (80-95); iSTAT Carbon Dioxide 19 mmol/L (24-31); iSTAT Hematocrit 42 % (42-52); iSTAT Hemoglobin 14.3 g/dl (14.0-18.0); iSTAT Potassium 4.7 mmol/L (3.3-5.0); iSTAT Sodium 128 mmol/L (135-144)
--- NOTE | 2021-07-31 23:02 | CT Scan Report ---
CT tib/fib RT wo con INDICATION: MN ^Osteomyelitis? TECHNIQUE: Multidetector row helical CT of the right tibia and fibula was performed without intraveno us contrast. Coronal and sagittal reformations were obtained. Automated dose lowering techniques and/ or adjustment according to patient size were utilized for this examination. Comparison: None available at the time of this dictation. FINDINGS: The osseous structures are without fracture or dislocation. No focal lucencies are seen to suggest os teomyelitis. Diffuse soft tissue swelling is seen compatible with cellulitis. Mild narrowing of the j oint spaces knee noted. IMPRESSION: Soft tissue swelling compatible with cellulitis without evidence of bony erosion to suggest osteomyel itis. ACT 112: Negative or not required by law. Electronically signed by: Aroldo Levy M.D. 07/31/2021 11:00 PM
[2021-07-31] MEDS ORDERED: ALBUT/IPRATROP 3MG/0.5MG NEB 3 ML VIAL INH PRN (23:06)
[2021-07-31] MEDS ORDERED: ICU PROTOCOL FOR HYPERGLYCEMIA PRN (23:06)
--- NOTE | 2021-07-31 23:06 | CT Scan Report ---
CT foot RT wo con INDICATION: MN ^Osteomyelitis TECHNIQUE: Multidetector row helical CT of the right foot was performed without intravenous contrast. Coronal and sagittal reformations were obtained. Automated dose lowering techniques and/or adjustmen t according to patient size were utilized for this examination. Comparison: None available at the time of this dictation. FINDINGS: There is an acute to subacute nondisplaced fracture of the first digit proximal phalanx extending to the first metacarpophalangeal joint. No evidence of focal erosion seen to suggest osteomyelitis. Soft tissue swelling is seen most prominent in the dorsal surface of the foot, compatible with cellulitis . IMPRESSION: 1. Cellulitis without evidence of osteomyelitis. 2. Acute to subacute intra-articular fracture of the first digit proximal phalanx. ACT 112: Negative or not required by law. Electronically signed by: Aroldo Levy M.D. 07/31/2021 11:04 PM
--- NOTE | 2021-07-31 23:08 | CT Scan Report ---
CT chest diagnostic wo con INDICATION: MN ^Pulm infiltrates. TECHNIQUE: Multidetector row helical CT of the chest was performed. Coronal and sagittal reformations were obtained. Automated dose lowering techniques and/or adjustment according to patient size were u tilized for this exam. Comparison: None available at the time of this dictation. FINDINGS: Lungs and pleura: Atelectasis versus scarring is seen in the dependent portions of the lungs. Heart and pericardium: Heart size is normal. No pericardial effusion. Vessels: Moderate atherosclerotic changes in the aorta and coronary arteries. Mediastinum and twin: Unremarkable. Chest wall and lower neck: Unremarkable. Abdomen: Hepatic steatosis is seen. Multiple splenules are seen. Patient is status post cholecystecto my. There is a small hiatal hernia. Bones: Degenerative changes in the thoracic spine. IMPRESSION: No evidence of pneumonia. Bilateral atelectasis versus scarring is seen. Additional findings as above . ACT 112: Negative or not required by law. Electronically signed by: Aroldo Levy M.D. 07/31/2021 11:07 PM
[2021-07-31] MEDS ORDERED: GLUCOSE 10 TABS/TUBE PO PRN (23:15)
[2021-07-31] MEDS ORDERED: GLUCAGON FOR INJ 1 MG VIAL IM PRN (23:15)
[2021-07-31] MEDS ORDERED: GLUCOSE 40% GEL 15 GM TUBE PO PRN (23:15)
[2021-07-31] MEDS ORDERED: DEXTROSE 50% 50 ML SYRINGE IV PRN (23:15)
[2021-07-31] MEDS ORDERED: CARBOHYDRATES FOR HYPOGLYCEMIA PO PRN (23:15)
[2021-07-31] MEDS ORDERED: INSULIN HUMAN REGULAR IV BOLUS 5 UNITS in SYRINGE 0 ML IV ONE (23:30)
[2021-07-31] MEDS: INSULIN REGULAR 250 UNITS in SODIUM CHLORIDE 0.9% 247.5 ML IV SCH (23:31)
[2021-07-31] MEDS: FAMOTIDINE 20 MG in SYRINGE 3 ML IV SCH (23:32)
[2021-07-31] MEDS: HEPARIN SODIUM/DEXTROSE 25,000 UNITS/500 ML BAG IV SCH (23:34)
[2021-08-01] MEDS ORDERED: LINEZOLID 600 MG/300 ML BAG IV SCH
[2021-08-01] MEDS ORDERED: NORMOSOL-R 1,000 ML IV ONE (00:07)
--- NOTE | 2021-08-01 00:22 | Critical Care Consultation ---
Date of Consultation July 31, 2021 Assessment & Plan (1) Sepsis: Impression: 51-year-old male presents to the ICU with sepsis from cellulitis of the right lower extremity, NSTEMI, ALENA, requiring noninvasive ventilation. Neuro - [facility] ICU: Negative Depressioncontinue Prozac, Effexor Diabetic neuropathycontinue gabapentin Cardiac - NSTEMIpatient with initial troponin level of 18, now downtrending -No chest pain on exam, no ST elevations on EKG -Sepsis and ALENA may be contributing with demand ischemia. He was noted to have calcifications in the coronary arteries on to CT chest -Chronically anticoagulated for prior DVT on apixaban, transitioning to heparin no bolus -Follow-up echo and repeat EKG in a.m. -Hold Lasix and lisinopril for now in the setting of ALENA -Continue statin -Continuous monitoring on telemetry Respiratory - Tachypnealikely compensatory for metabolic acidosis -Blood gas consistent with metabolic acidosis partially compensated -CT chest Noncon without evidence of pneumonia or pulmonary edema, consistent with dependent atelectasis -BiPAP weaned off and patient currently maintaining oxygen saturation on room air at this time -Continuous monitoring on pulse ox GI - Heart healthy, diabetic diet RENAL/LYTES - AKIpatient presents with creatinine 2.5 with prior baseline 0.8 - suspect this is prerenal in setting of sepsis/NSTEMI -Continue with fluid resuscitation -Hold Lasix and lisinopril for now -Avoid nephrotoxins and renally adjust medications -Trend creatinine with BMPs, consider nephrology consult if worsening Lactic acidosisinitial lactate 5 in the setting of sepsis, repeat improving following fluid resuscitation -See ID treatment sepsis below -No indication for bicarb drip at this time, continue to trend for now - Foleystrict I's and O's ENDO - DM type II (uncontrolled)last A1c from 03/08 8.0, repeat A1c pending -Hyperglycemic, insulin drip per ICU hyperglycemic protocol HEME - H&H stable, monitor routine CBCs ID - Sepsispatient with WBC 32,000, pro Anshu 32, lactate 5, febrile. Source likely from cellulitis to the right lower extremity -CT right lower extremity showed cellulitis without evidence of osteomyelitis -CT chest without evidence of pulmonary source -UA unremarkable -Blood cultures and urine culture pending -Bio fire unremarkable, COVID-19 negative -Multiple antibiotic allergies. Currently undergoing treatment with broad- spectrum antibiotics with ertapenem, linezolid LINES/IV ACCESS - Peripheral IVs DVT PROPHYLAXIS - SCDs, heparin drip Thank you for allowing us to participate in the care of this patient. Please refer to my attending physician's documentation for any further recommendations. (2) Depression: (3) Hypertension: (4) Dyslipidemia: (5) Diabetes type 2, uncontrolled: (6) Morbid obesity with BMI of 50.0-59.9, adult: (7) Below-knee amputation of left lower extremity: (8) Cellulitis of right leg: (9) Metabolic acidosis: (10) NSTEMI (non-ST elevated myocardial infarction): (11) ALENA (acute kidney injury): Supervising Physician Co-Signing Physician Notes Seen and examined. Imaging reviewed. Discussed with CC SARTHAK overnight History of Present Illness Attending Physician: Shahbaz Andrade MD History of Present Illness Patient is a 51-year-old male with past medical history significant for DM type II uncontrolled, DVT (on Xarelto), diabetic neuropathy, HTN, HLD, morbid obesity, and left BKA. Patient presented to the emergency department with complaints of chills, shortness of breath, cough, and burning and inflammation in his right lower extremity that started last evening. Patient was noted to be febrile, significant leukocytosis with WBC of 31,000, procalcitonin 34, and lactic acid of 5. He had a mild metabolic acidosis and troponin was noted to be significantly elevated at 18.6, but no ST elevations on EKG x2. Patient was placed on BiPAP due to worsening work of breathing. He was noted to have ALENA with creatinine 2.4 with baseline 0.87 as well. He was placed on heparin drip. COVID-19 and bio fire negative. Patient now being admitted to ICU for further management at this time. On evaluation the patient is alert and oriented. He complains of headache ongoing since this morning, shortness of breath, and burning in the right lower extremity. He currently denies sore throat or congestion, dizziness, chest pain, palpitations, abdominal pain, nausea or vomiting or diarrhea. He has erythema to the right lower extremity which is warm to touch. Patient was taken for CT of the right lower extremity which was consistent with cellulitis without evidence of osteomyelitis. CT chest without evidence of pneumonia or pulmonary congestion. Patient being treated for septic shock with broad-spectrum antibiotics and currently on heparin drip for NSTEMI. Allergies Allergy/AdvReac Type Severity Reaction Status Date / Time clindamycin Allergy Intermediate Hives Verified 07/31/21 20:35 cefepime Allergy Mild RASH-POSSIBLY Verified 07/31/21 20:35 DUE TO CEFEPIME vancomycin AdvReac Intermediate KYE Verified 07/31/21 20:35 SYNDROME piperacillin [From Zosyn] AdvReac Mild skin rash, Verified 07/31/21 20:35 itching, mild tazobactam [From Zosyn] AdvReac Mild skin rash, Verified 07/31/21 20:35 itching, mild Home Medications Medication Instructions Recorded Confirmed Type pen needle, diabetic 29 gauge x #100 ea 03/14/20 07/31/21 Rx 1/2" (Comfort EZ Pen Orrick) semaglutide 1 mg/dose (2 mg/1.5 1 mg SQ WEEKLY #3 ml 03/19/20 07/31/21 Rx mL) subcutaneous pen injector (Ozempic) cane #1 ea 08/03/20 07/31/21 Rx blood sugar diagnostic (OneTouch #100 ea 09/05/20 07/31/21 Rx Ultra Blue Test Strip) fluoxetine 20 mg capsule 60 mg PO DAILY #270 cap 12/06/20 07/31/21 Rx cholecalciferol (vitamin D3) 125 5,000 unit PO DAILY #90 tab 01/14/21 07/31/21 Rx mcg (5,000 unit) tablet (Vitamin D3) insulin aspar prot-insulin aspart 60 - 100 unit SUBCUT TID #75 ml 01/14/21 07/31/21 Rx 100 unit/mL (70-30) subcutaneous pen (Novolog Mix 70-30FlexPen U-100) albuterol sulfate 90 mcg/actuation 2 puff INHALATION Q6H PRN #18 gm 03/12/21 07/31/21 Rx aerosol inhaler (Ventolin HFA) gabapentin 600 mg tablet 600 mg PO DAILY #90 tab 03/26/21 07/31/21 Rx lisinopril 2.5 mg tablet 2.5 mg PO DAILY #90 tab 03/26/21 07/31/21 Rx venlafaxine 75 mg capsule,extended 75 mg PO DAILY #90 cap 03/26/21 07/31/21 Rx release 24 hr (Effexor XR) furosemide 40 mg tablet (Lasix) 40 mg PO BID #180 tab 04/25/21 07/31/21 Rx rosuvastatin 5 mg tablet 5 mg PO DAILY #90 tab 04/30/21 07/31/21 Rx Dexcom G6 Irrigation Specialist (blood-glucose #1 ea NS 07/16/21 07/31/21 Rx meter,continuous) Dexcom G6 Sensor (blood-glucose #3 ea NS 07/16/21 07/31/21 Rx sensor) Dexcom G6 Transmitter #1 ea NS 07/16/21 07/31/21 Rx (blood-glucose transmitter) cetirizine 10 mg tablet 10 mg PO DAILY #90 tab 07/25/21 07/31/21 Rx doxepin 10 mg capsule 10 mg PO DAILY #30 cap 07/25/21 07/31/21 Rx hydroxyzine HCl 25 mg tablet 25 mg PO DAILY PRN #30 tab 07/25/21 07/31/21 Rx rivaroxaban 20 mg tablet 20 mg PO QAM #90 tab 07/26/21 07/31/21 Rx semaglutide (weight loss) 1.7 1.7 mg SUBCUT Q7D #3 ml 07/26/21 07/31/21 Rx mg/0.75 mL subcutaneous pen injector (Wegovy) topiramate 25 mg tablet 25 mg PO HS #60 tab 07/31/21 07/31/21 Rx Patient History Medical History Depression Diabetes type 2, uncontrolled Diabetic peripheral neuropathy associated with type 2 diabetes mellitus DVT (deep venous thrombosis) (08/16/13) Dysesthesia Dyslipidemia Hypertension Personal history of diabetic foot ulcer Vitamin D deficiency Surgical History S/P hernia repair S/P PICC central line placement with removal S/P rotator cuff repair Family History Aunt No problems noted. Grandmother (Maternal) Throat cancer Myocardial infarction Grandfather (Maternal) Myocardial infarction Other Coronary heart disease Diabetes No pertinent family history Denies family history of Ovarian cancer Prostate cancer Breast cancer Colorectal cancer Social History Smoking Status: Never smoker Tobacco Type: Cigarettes Hx Alcohol Use: No Hx Substance Use: No Preferred Language: Danish Communication Ability: Unable Beliefs That Will Affect Care: None marital status: Current Living Situation: Spouse current occupational status: disabled How many Children do You have: 2 Feels Safe at Home: Yes Safety Concerns: Feels Safe At This Time Physical Activity Frequency: Does not Exercise Seatbelt Use: always Sunscreen Use: Yes Assistive Devices: Walker and Wheelchair Review of Systems Review of Systems: All systems reviewed & are unremarkable except as noted in HPI & below Physical Exam Constitutional: + morbidly obese, cooperative and + diaphoretic Eyes: PERRL, conjunctivae normal, anicteric sclerae ENMT: external ear and nose normal, oropharynx normal Neck: trachea midline, no thyromegaly Respiratory: + tachypneic Auscultation: lungs clear to auscultation bilaterally; no crackles, no rhonchi and no wheezes Cardiovascular: Rate/Rhythm: regular rate and regular rhythm Heart Sounds: normal S1 and normal S2 Extremities: normal capillary refill and + edema Gastrointestinal (Abdomen): normal bowel sounds, soft, nontender, no hepatosplenomegaly Musculoskeletal: AKA to the left lower extremity Skin: Induration and erythema to the right lower extremity Neurologic: PERRL, EOMI, accommodation nl, no face palsy, no dysarthria Psychiatric: A+Ox3, euthymic affect Genitourinary: Indwelling Jauregui catheter present Results & Data Results & Data ([facility]) Vital Signs (Past 12 Hours) Vital Signs Temp Pulse Pulse Resp BP Pulse Ox 07/31/21 21:50 116 H 30 H 95 07/31/21 21:30 119 H 30 H 97 07/31/21 21:00 128/61 97 07/31/21 20:30 98 07/31/21 20:20 126 H 29 H 98 07/31/21 20:00 119 H 33 H 97 07/31/21 19:30 126 H 26 H 97 07/31/21 19:16 96 07/31/21 19:11 118 H 118 H 38 H 96 07/31/21 18:43 119 H 38 H 98 07/31/21 18:37 126 H 40 H 95 07/31/21 18:28 39.3 C H 118 H 44 H 133/67 91 Coding Level of Care Code 05943 Inpt Consult Level 5 Diagnoses Depression F32.9 Hypertension I10 Dyslipidemia E78.5 Diabetes type 2, uncontrolled E11.65 Morbid obesity with BMI of 50.0-59.9, adult E66.01; Z68.43 Below-knee amputation of left lower extremity S88.112A Sepsis A41.9 Cellulitis of right leg L03.115 Metabolic acidosis E87.2 NSTEMI (non-ST elevated myocardial infarction) I21.4 ALENA (acute kidney injury) N17.9
[2021-08-01] MEDS: ACETAMINOPHEN 325 MG TAB PO PRN ×4 (01:03→15:30)
[2021-08-01] MEDS ORDERED: FLUARIX QUADRIVALENT 0.5 ML SYR IM ONE (01:15)
[2021-08-01] MEDS: MAGNESIUM SULFATE / D5W 1 GM/100 ML BAG IV SCH (01:29)
--- NOTE | 2021-08-01 02:52 | History & Physical Report ---
Date of Service August 01, 2021 The patient was seen and examined July 31, 2021 Assessment & Plan (1) NSTEMI (non-ST elevated myocardial infarction): Plan: NSTEMI/hypertension/CHF- The patient will have serial cardiac enzymes, serial EKG's, cardiac rhythm monitoring and a 2-D echocardiogram with Dopplers. Continue furosemide 40 mg p.o. twice daily, held in the ED due to systolic blood pressure in the low 100s Hold Xarelto, and start heparin IV low-dose without bolus (2) Sepsis: Plan: Combination of pulmonary and cellulitis right lower extremity issues. Placed on linezolid IV, and ertapenem IV per pharmacokinetic monitoring (3) Cellulitis of right leg: Plan: Ordering CT to assess for possible osteomyelitis Antibiotics as noted above (4) ALENA (acute kidney injury): Plan: Creatinine 2.40 upon admission, with baseline 0.87 Question related to sepsis and/or decreased forward flow from NSTEMI Repeat laboratories in a.m. (5) Hypertension: Plan: See above (6) Diabetes type 2, uncontrolled: Plan: Will be placed on insulin drip per protocol while in the ICU (7) Diabetic peripheral neuropathy associated with type 2 diabetes mellitus: Plan: Continue gabapentin (8) Depression: Plan: Continue doxepin, topiramate, fluoxetine and venlafaxine (9) Dyslipidemia: Plan: Continue rosuvastatin Check a fasting lipid panel (10) Morbid obesity with BMI of 50.0-59.9, adult: Plan: Noted (11) Admitted to intensive care unit: Plan: Consult ICU document control clerk and team Admission and Anticipated Discharge Date Admission Date: July 31, 2021 History of Present Illness Chief Complaint: The patient presents to the emergency department with complaint of right lower extremity feeling warm and painful the entire previous evening when he was attempting to sleep, has fevers and chills, shortness of breath and cough Primary Care Provider: Mike Isidro MD The patient is a 51-year-old male with a past medical history including vitamin D deficiency, depression, hypertension, hyperlipidemia, diabetic foot ulcer, uncontrolled diabetes mellitus type 2 on insulin, morbid obesity, metabolic syndrome, diabetic peripheral neuropathy, dysesthesias, and status post left BK A. Patient presents with symptoms as noted above. The patient was hypoxic upon presentation to the emergency department, and was placed on BiPAP by the ED physician. Temperature upon arrival was 102.7 F Chest x-ray revealed a combination of pulmonary edema and pneumonia. Abnormal laboratories: WBC 31.17, sodium 127, creatinine 2.40, glucose 312, lactate 5.0, magnesium 1.2, total bilirubin 1.4, troponin 18.6, AST 131. Virus panel was negative. The patient was placed on daptomycin IV, ertapenem IV, dexamethasone 10 mg IV and a DuoNeb by the ED. Upon hospitalist assessment, patient was determined to require an ICU admission, due to pulmonary edema, pneumonia, right lower extremity cellulitis, sepsis and NSTEMI. Allergies Allergy/AdvReac Type Severity Reaction Status Date / Time clindamycin Allergy Intermediate Hives Verified 07/31/21 20:35 cefepime Allergy Mild RASH-POSSIBLY Verified 07/31/21 20:35 DUE TO CEFEPIME vancomycin AdvReac Intermediate KYE Verified 07/31/21 20:35 SYNDROME piperacillin [From Zosyn] AdvReac Mild skin rash, Verified 07/31/21 20:35 itching, mild tazobactam [From Zosyn] AdvReac Mild skin rash, Verified 07/31/21 20:35 itching, mild Home Medications Medication Instructions Recorded Confirmed Type pen needle, diabetic 29 gauge x #100 ea 03/14/20 07/31/21 Rx 1/2" (Comfort EZ Pen [place]) semaglutide 1 mg/dose (2 mg/1.5 1 mg SQ WEEKLY #3 ml 03/19/20 07/31/21 Rx mL) subcutaneous pen injector (Ozempic) cane #1 ea 08/03/20 07/31/21 Rx blood sugar diagnostic (OneTouch #100 ea 09/05/20 07/31/21 Rx Ultra Blue Test Strip) fluoxetine 20 mg capsule 60 mg PO DAILY #270 cap 12/06/20 07/31/21 Rx cholecalciferol (vitamin D3) 125 5,000 unit PO DAILY #90 tab 01/14/21 07/31/21 Rx mcg (5,000 unit) tablet (Vitamin D3) insulin aspar prot-insulin aspart 60 - 100 unit SUBCUT TID #75 ml 01/14/21 07/31/21 Rx 100 unit/mL (70-30) subcutaneous pen (Novolog Mix 70-30FlexPen U-100) albuterol sulfate 90 mcg/actuation 2 puff INHALATION Q6H PRN #18 gm 03/12/21 07/31/21 Rx aerosol inhaler (Ventolin HFA) gabapentin 600 mg tablet 600 mg PO DAILY #90 tab 03/26/21 07/31/21 Rx lisinopril 2.5 mg tablet 2.5 mg PO DAILY #90 tab 03/26/21 07/31/21 Rx venlafaxine 75 mg capsule,extended 75 mg PO DAILY #90 cap 03/26/21 07/31/21 Rx release 24 hr (Effexor XR) furosemide 40 mg tablet (Lasix) 40 mg PO BID #180 tab 04/25/21 07/31/21 Rx rosuvastatin 5 mg tablet 5 mg PO DAILY #90 tab 04/30/21 07/31/21 Rx Dexcom G6 Medical Office Administrator (blood-glucose #1 ea NS 07/16/21 07/31/21 Rx meter,continuous) Dexcom G6 Sensor (blood-glucose #3 ea NS 07/16/21 07/31/21 Rx sensor) Dexcom G6 Transmitter #1 ea NS 07/16/21 07/31/21 Rx (blood-glucose transmitter) cetirizine 10 mg tablet 10 mg PO DAILY #90 tab 07/25/21 07/31/21 Rx doxepin 10 mg capsule 10 mg PO DAILY #30 cap 07/25/21 07/31/21 Rx hydroxyzine HCl 25 mg tablet 25 mg PO DAILY PRN #30 tab 07/25/21 07/31/21 Rx rivaroxaban 20 mg tablet 20 mg PO QAM #90 tab 07/26/21 07/31/21 Rx semaglutide (weight loss) 1.7 1.7 mg SUBCUT Q7D #3 ml 07/26/21 07/31/21 Rx mg/0.75 mL subcutaneous pen injector (Wegovy) topiramate 25 mg tablet 25 mg PO HS #60 tab 07/31/21 07/31/21 Rx Past Med/Surg History Medical History Depression Diabetes type 2, uncontrolled Diabetic peripheral neuropathy associated with type 2 diabetes mellitus DVT (deep venous thrombosis) (08/16/13) Dysesthesia Dyslipidemia Hypertension Personal history of diabetic foot ulcer Vitamin D deficiency Surgical History S/P hernia repair S/P PICC central line placement with removal S/P rotator cuff repair Family History Aunt No problems noted. Grandmother (Maternal) Throat cancer Myocardial infarction Grandfather (Maternal) Myocardial infarction Other Coronary heart disease Diabetes No pertinent family history Denies family history of Ovarian cancer Prostate cancer Breast cancer Colorectal cancer Social History Smoking Status: Never smoker Tobacco Type: Cigarettes Hx Alcohol Use: No Hx Substance Use: No Preferred Language: Pashto Communication Ability: Unable Beliefs That Will Affect Care: None marital status: Current Living Situation: Spouse current occupational status: disabled How many Children do You have: 2 Feels Safe at Home: Yes Safety Concerns: Feels Safe At This Time Physical Activity Frequency: Does not Exercise Seatbelt Use: always Sunscreen Use: Yes Assistive Devices: Walker and Wheelchair Review of Systems Review of Systems: The patient denies chest pain, palpitations, cough, sore throat, fevers, chills, sweat, vomiting, diarrhea , constipation, abdominal pain, pelvic pain, blood in urine or stool, dysuria, urinary frequency or urgency, lightheadedness, dizziness, headache, memory loss, loss of consciousness, abnormal bruising or bleeding, focal or generalized weakness, numbness or tingling in arms, generalized arthralgias or myalgias, back or neck pain, or night sweats. The review of systems is otherwise negative other than for that already noted above, and at least 10 systems have been reviewed. Physical Exam Physical Exam: The patient is awake, alert and oriented 3, on BiPAP, with paradoxical breathing, normocephalic and atraumatic, lying in bed and in moderate respiratory distress. HEENT--PERRL, EOMI, mucous membranes and oropharynx normal Neck--supple. No JVD. No bruits. Thyroid normal, trachea midline, no adenopathy. Heart--normal S1 and S2. No murmurs, rubs or gallops. Lungs--coarse breath sounds bilaterally. Moderate no respiratory distress with accessory muscle use. Abdomen--normal bowel sounds and soft. Nontender. Morbidly obese Extremities--left BKA normal. Right lower extremity moderately severe erythema, 1+ pitting edema, with warmth Dermatologic--see above Neurologic--cranial nerves II through XII grossly intact. Rheumatologic--limited exam Psychiatric--normal affect. Results & Data Results & Data ([facility]) Vital Signs (Past 12 Hours) Vital Signs Temp Pulse Pulse Resp BP Pulse Ox 08/01/21 02:15 117 H 39 H 96 08/01/21 02:00 102.4 F H 119 H 21 08/01/21 01:45 102.2 F H 141 H 93 08/01/21 01:30 102.0 F H 113 H 30 H 158/84 H 100 08/01/21 01:15 101.8 F H 113 H 35 H 96 08/01/21 01:00 101.8 F H 111 H 35 H 131/68 96 08/01/21 00:45 101.7 F H 113 H 31 H 98 08/01/21 00:31 101.5 F H 109 H 26 H 116/66 95 08/01/21 00:15 101.3 F H 108 H 32 H 100 08/01/21 00:01 101.3 F H 108 H 34 H 113/71 99 07/31/21 23:45 101.1 F H 110 H 28 H 99 07/31/21 23:31 100.0 F H 108 H 34 H 121/62 97 07/31/21 23:15 105 H 27 H 99 07/31/21 23:08 99.1 F 103 H 32 H 99 07/31/21 23:00 105 H 18 101/64 97 07/31/21 22:57 104 H 22 07/31/21 21:50 116 H 30 H 95 07/31/21 21:30 119 H 30 H 97 07/31/21 21:00 128/61 97 07/31/21 20:30 98 07/31/21 20:20 126 H 29 H 98 07/31/21 20:00 119 H 33 H 97 07/31/21 19:30 126 H 26 H 97 07/31/21 19:16 96 07/31/21 19:11 118 H 118 H 38 H 96 07/31/21 18:43 119 H 38 H 98 07/31/21 18:37 126 H 40 H 95 07/31/21 18:28 102.7 F H 118 H 44 H 133/67 91 Laboratory Results Laboratory Results WBC 31.17 K/uL (4.8-10.8) H* 07/31/21 19:00 RBC 4.92 M/uL (4.7-6.1) 07/31/21 19:00 Hgb 15.2 g/dL (14.0-18.0) 07/31/21 19: POC Hgb 14.3 g/dl (14.0-18.0) 07/31/21 22:19 Hct 42.6 % (42-52) 07/31/21 19: POC Hct 42 % (42-52) 07/31/21 22: MCV 86.6 fL (80-100) 07/31/21 19:00 MCH 30.9 pg (25-34) 07/31/21 19: MCHC 35.7 g/dL (32-36) 07/31/21 19:00 RDW Std Deviation 43.7 fL (36.4-46.3) 07/31/21 19: RDW Coeff of Wil 13.8 % (11.5-14.5) 07/31/21 19:00 Plt Count 200 K/uL (130-400) 07/31/21 19:00 MPV 9.6 fL (7.4-10.4) 07/31/21 19:00 Immature Gran % (Auto) 2.2 % 07/31/21 19:00 Neut % (Auto) 91.4 % 07/31/21 19:00 Lymph % (Auto) 1.8 % 07/31/21 19:00 [place] % (Auto) 4.6 % 07/31/21 19:00 Eos % (Auto) 0.0 % 07/31/21 19:00 Baso % (Auto) 0.0 % 07/31/21 19:00 Neut # (Auto) 28.48 K/uL (1.4-6.5) H 07/31/21 19:00 Lymph # (Auto) 0.55 K/uL (1.2-3.4) L 07/31/21 19:00 [place] # (Auto) 1.42 K/uL (0.11-0.59) H 07/31/21 19:00 Eos # (Auto) 0.01 K/uL (0-0.5) 07/31/21 19:00 Baso # (Auto) 0.01 K/uL (0-0.2) 07/31/21 19:00 Immature Gran # (Auto) 0.70 K/uL (0.00-0.02) H 07/31/21 19:00 Polychromasia 1+ 07/31/21 19:00 PT 13.1 Seconds (9.0-12.0) H 07/31/21 19:00 INR 1.3 (0.9-1.1) H 07/31/21 19:00 APTT 26.2 Seconds (21.0-31.0) 07/31/21 19:00 PTT Ratio 1.0 07/31/21 19:00 POC pH 7.35 (7.35-7.45) 07/31/21 22:19 POC pCO2 32 mmHg (35-46) L 07/31/21 22:19 POC pO2 40 mmHg (80-95) L 07/31/21 22:19 POC HCO3 18 samia/L (19-24) L 07/31/21 22:19 POC Total CO2 19 mmol/L (24-31) L 07/31/21 22:19 POC Base Excess -8.0 samia/L (-9-1.8) 07/31/21 22:19 POC ABG O2 Sat 73.0 % (90-95) L 07/31/21 22:19 POC Sodium 128 mmol/L (135-144) L 07/31/21 22:19 Sodium 127 mmol/L (136-145) L 07/31/21 19:00 POC Potassium 4.7 mmol/L (3.3-5.0) 07/31/21 22:19 Potassium 4.6 mmol/L (3.5-5.1) 07/31/21 19:00 Chloride 96 mmol/L (98-107) L 07/31/21 19:00 Carbon Dioxide 18 mmol/L (21-32) L 07/31/21 19:00 Anion Gap 13.0 (3-11) H 07/31/21 19:00 BUN 33 mg/dl (7-18) H 07/31/21 19:00 Creatinine 2.40 mg/dl (0.6-1.4) H 07/31/21 19:00 Est Cr Clr Drug Dosing 65.0 ml/min 07/31/21 19:00 Est GFR ( Amer) 34.4 ml/min 07/31/21 19:00 Est GFR (Non-Af Amer) 29.7 ml/min 07/31/21 19:00 BUN/Creatinine Ratio 13.7 (10-20) 07/31/21 19:00 Glucose 312 mg/dl (70-99) H* 07/31/21 19:00 POC Glucose 364 mg/dl (70-99) H* 08/01/21 02:40 Lactate 4.2 mmol/L (0.4-2.0) H* 07/31/21 21:09 Calcium 8.7 mg/dl (8.5-10.1) 07/31/21 19:00 Magnesium 1.2 mg/dl (1.8-2.4) L 07/31/21 19:00 Total Bilirubin 1.4 mg/dl (0.2-1) H 07/31/21 19:00 AST 131 U/L (15-37) H 07/31/21 19:00 ALT 47 U/L (12-78) 07/31/21 19:00 Alkaline Phosphatase 64 U/L (45-117) 07/31/21 19:00 Troponin I 15.700 ng/ml (0-0.045) H* 07/31/21 23:49 Total Protein 7.5 gm/dl (6.4-8.2) 07/31/21 19:00 Albumin 3.1 gm/dl (3.4-5.0) L 07/31/21 19:00 Globulin 4.4 gm/dl (2.5-4.0) H 07/31/21 19:00 Albumin/Globulin Ratio 0.7 (0.9-2) L 07/31/21 19:00 Beta-Hydroxybutyric Acd 2.99 mg/dl (0.2-2.81) H 07/31/21 19:00 Procalcitonin 34.07 ng/ml (0-0.5) H 07/31/21 19:00 Urine Color Dark Yellow 07/31/21 18:35 Urine Appearance Cloudy (Clear) A 07/31/21 18:35 Urine pH 5.0 (4.5-7.5) 07/31/21 18:35 Ur Specific [place] 1.018 (1.000-1.030) 07/31/21 18:35 Urine Protein 1+ (Negative) H 07/31/21 18:35 Urine Glucose (UA) Negative (Negative) 07/31/21 18:35 Urine Ketones Trace (Negative) H 07/31/21 18:35 Urine Blood 2+ (Negative) H 07/31/21 18:35 Urine Nitrite Negative (Negative) 07/31/21 18:35 Urine Bilirubin 1+ (Negative) H 07/31/21 18:35 Urine Urobilinogen Negative (Negative) 07/31/21 18:35 Ur Leukocyte Esterase Trace (Negative) H 07/31/21 18:35 Urine WBC (Auto) 10-30 /hpf (0-5) H 07/31/21 18:35 Urine RBC (Auto) 0-4 /hpf (0-4) 07/31/21 18:35 U Hyaline Cast (Auto) 1-5 /lpf (0-5) 07/31/21 18:35 U Epithel Cells (Auto) >30 /lpf (0-5) H 07/31/21 18:35 Urine Bacteria (Auto) Negative (Negative) 07/31/21 18:35 Ur Renal Epithelial Cell Not Reportable 07/31/21 18:35 Calcium Oxalate Crystal Present (None Prsent) A 07/31/21 18:35 Urine Yeast Not Reportable 07/31/21 18:35 Urine Sperm Present (None Prsent) A 07/31/21 18:35 Nasal Screen MRSA (PCR) Negative (Negative) 08/01/21 00:50 Adenovirus (PCR) Not Detected (NotDetected) 07/31/21 19:10 B. pertussis DNA (PCR) Not Detected (NotDetected) 07/31/21 19:10 B.parapertussis DNA PCR Not Detected (NotDetected) 07/31/21 19:10 C. pneumoniae DNA (PCR) Not Detected (NotDetected) 07/31/21 19:10 Coronavirus OC43 (PCR) Not Detected (NotDetected) 07/31/21 19:10 Coronavirus HKU1 (PCR) Not Detected (NotDetected) 07/31/21 19:10 Coronavirus 229E (PCR) Not Detected (NotDetected) 07/31/21 19:10 COVID-19 Eval Order [facility]PNP at [facility] 07/31/21 19:10 SARS-CoV-2 (PCR) Not Detected (NotDetected) 07/31/21 19:10 Coronavirus NL63 (PCR) Not Detected (NotDetected) 07/31/21 19:10 Human Metapneumovir PCR Not Detected (NotDetected) 07/31/21 19:10 Influenza Type A (PCR) Not Detected (NotDetected) 07/31/21 19:10 Influenza Type B (PCR) Not Detected (NotDetected) 07/31/21 19:10 M. pneumoniae (PCR) Not Detected (NotDetected) 07/31/21 19:10 Parainfluenza 1 (PCR) Not Detected (NotDetected) 07/31/21 19:10 Parainfluenza 2 (PCR) Not Detected (NotDetected) 07/31/21 19:10 Parainfluenza 3 (PCR) Not Detected (NotDetected) 07/31/21 19:10 Parainfluenza 4 (PCR) Not Detected (NotDetected) 07/31/21 19:10 RSV (PCR) Not Detected (NotDetected) 07/31/21 19:10 Entero/Rhino (PCR) Not Detected (NotDetected) 07/31/21 19:10 Impressions Chest X-Ray 07/31/21 18:39 SINGLE VIEW CHEST CLINICAL HISTORY: Sepsis. FINDINGS: 2 AP, portable, upright chest radiographs are compared to study dated 06/30/2016. The heart is enlarged noting atherosclerotic calcification of the thoracic aorta. There is pulmonary vascular congestion. There are mild bilateral airspace opacities patchy No large pleural effusion or pneumothorax is seen. The skeletal structures appear osteopenic. The bony thorax is grossly intact. IMPRESSION: 1. Cardiomegaly with evidence of congestive failure. 2. Scattered bilateral airspace opacities likely represent mild pulmonary edema. Correlate clinically for evidence of a superimposed infectious/inflammatory pneumonitis. ACT 112: Negative or not required by law. Electronically signed by: Damon Soliz M.D. 07/31/2021 7:[address] 07/31/21 21:48 CT foot RT wo con INDICATION: [place] ^Osteomyelitis TECHNIQUE: Multidetector row helical CT of the right foot was performed without intravenous contrast. Coronal and sagittal reformations were obtained. Automated dose lowering techniques and/or adjustment according to patient size were utilized for this examination. Comparison: None available at the time of this dictation. FINDINGS: There is an acute to subacute nondisplaced fracture of the first digit proximal phalanx extending to the first metacarpophalangeal joint. No evidence of focal erosion seen to suggest osteomyelitis. Soft tissue swelling is seen most prominent in the dorsal surface of the foot, compatible with cellulitis. IMPRESSION: 1. Cellulitis without evidence of osteomyelitis. 2. Acute to subacute intra-articular fracture of the first digit proximal phalanx. ACT 112: Negative or not required by law. Electronically signed by: Aroldo Levy M.D. 07/31/2021 11:[address] 07/31/21 21:48 CT tib/fib RT wo con INDICATION: MN ^Osteomyelitis? TECHNIQUE: Multidetector row helical CT of the right tibia and fibula was performed without intravenous contrast. Coronal and sagittal reformations were obtained. Automated dose lowering techniques and/or adjustment according to patient size were utilized for this examination. Comparison: None available at the time of this dictation. FINDINGS: The osseous structures are without fracture or dislocation. No focal lucencies are seen to suggest osteomyelitis. Diffuse soft tissue swelling is seen compatible with cellulitis. Mild narrowing of the joint spaces knee noted. IMPRESSION: Soft tissue swelling compatible with cellulitis without evidence of bony erosion to suggest osteomyelitis. ACT 112: Negative or not required by law. Electronically signed by: Aroldo Levy M.D. 07/31/2021 11:[address] 07/31/21 21:59 CT chest diagnostic wo con INDICATION: [place] ^Pulm infiltrates. TECHNIQUE: Multidetector row helical CT of the chest was performed. Coronal and sagittal reformations were obtained. Automated dose lowering techniques and/or adjustment according to patient size were utilized for this exam. Comparison: None available at the time of this dictation. FINDINGS: Lungs and pleura: Atelectasis versus scarring is seen in the dependent portions of the lungs. Heart and pericardium: Heart size is normal. No pericardial effusion. Vessels: Moderate atherosclerotic changes in the aorta and coronary arteries. Mediastinum and twin: Unremarkable. Chest wall and lower neck: Unremarkable. Abdomen: Hepatic steatosis is seen. Multiple splenules are seen. Patient is status post cholecystectomy. There is a small hiatal hernia. Bones: Degenerative changes in the thoracic spine. IMPRESSION: No evidence of pneumonia. Bilateral atelectasis versus scarring is seen. Additional findings as above. ACT 112: Negative or not required by law. Electronically signed by: Aroldo Levy M.D. 07/31/2021 11:07 PM Code Status & VTE Plan Code Status Full code VTE Prophylaxis Plan VTE Prophylaxis will be ordered: Yes PG Care Time/CCT Total # of Minutes Spent Total Time Spent with Patient: Total time spent is greater than 50% in coordination of care (as documented) at patient's floor/unit and/or counseling patient: 50 minutes Coding Level of Care Code 97300 Initial Inpt Care Lvl 3 Diagnoses NSTEMI (non-ST elevated myocardial infarction) I21.4 Cellulitis of right leg L03.115 Sepsis A41.9 Dyslipidemia E78.5 Hypertension I10 Diabetes type 2, uncontrolled E11.65 Diabetic peripheral neuropathy associated with type 2 diabetes mellitus E11.42 Depression F32.9 Morbid obesity with BMI of 50.0-59.9, adult E66.01; Z68.43 Admitted to intensive care unit Z78.9 ALENA (acute kidney injury) N17.9
[2021-08-01 05:35] LABS: Hemoglobin 13.7 g/dL (14.0-18.0); Mean Corpuscular Hemoglobin 30.7 pg (25-34); Mean Corpuscular Hgb Conc 36.1 g/dL (32-36); Mean Corpuscular Volume 85.2 fL (80-100); Mean Platelet Volume 9.5 fL (7.4-10.4); Platelet Count 187 K/uL (130-400); RDW Coefficient of Variation 13.8 % (11.5-14.5); RDW Standard Deviation 43.1 fL (36.4-46.3); Red Blood Count 4.46 M/uL (4.7-6.1); White Blood Count 25.18 K/uL (4.8-10.8)
[2021-08-01 05:45] LABS: INR 1.5 (0.9-1.1); Partial Thromboplastin Ratio 1.5; Partial Thromboplastin Time 39.7 Seconds (21.0-31.0); Prothrombin Time 14.3 Seconds (9.0-12.0)
[2021-08-01] MEDS: NORMOSOL-R 1,000 ML IV SCH ×3 (05:45→23:29)
[2021-08-01 05:57] LABS: Base Excess VBG -6.3 mEq/L; HCO3 VBG 21 mmol/L; Oxygen Saturation VBG < 60.0 %; PCO2 VBG 48 mmHg (38-50); PO2 VBG 21 mmHg; pH VBG 7.26 (7.36-7.41)
[2021-08-01 06:04] LABS: Albumin Level 2.6 gm/dl (3.4-5.0); BUN Creatinine Ratio 19.6 (10-20); Calcium 8.1 mg/dl (8.5-10.1); Est GFR (African American) 58.4 ml/min; Est GFR (Non-African American) 50.4 ml/min; Magnesium 2.1 mg/dl (1.8-2.4); Potassium 4.1 mmol/L (3.5-5.1)
[2021-08-01 06:12] LABS: Albumin Globulin Ratio 0.6 (0.9-2); Bilirubin,Total 1.3 mg/dl (0.2-1); Globulin 4.1 gm/dl (2.5-4.0); Total Protein 6.7 gm/dl (6.4-8.2); Troponin I 10.8 ng/ml (0-0.045)
[2021-08-01 06:19] LABS: Basophils # (auto) 0.01 K/uL (0-0.2); Immature Granulocytes # (auto) 0.45 K/uL (0.00-0.02); Immature Granulocytes % (auto) 1.8 %; Lymphocytes # (auto) 0.31 K/uL (1.2-3.4); Lymphocytes % (auto) 1.2 %; Monocytes % (auto) 3.2 %; Neutrophils # (auto) 23.61 K/uL (1.4-6.5); Neutrophils % (auto) 93.8 %; RBC Morphology Unremarkable
--- NOTE | 2021-08-01 07:52 | Critical Care Progress Note ---
Date of Service August 01, 2021 Assessment & Plan (1) ALENA (acute kidney injury): Plan: Reason Critically Ill: Wyatt is a 51-year-old male with a notable history of type 2 diabetes complicated by polyneuropathy, previous diabetic ulcers, and below-knee amputation on the left side; obesity, hypertension, hyperlipidemia, history of DVT on Eliquis who presented to [facility] with a chief complaint of right lower extremity pain, warmth, fevers, chills, and night sweats. On his arrival, he was found to have evidence of cellulitis involving the right lower extremity, severe sepsis, and acute hypoxic respiratory failure. He requires ICU admission for respiratory monitoring. Neuro - [facility] ICU: Negative. Depression - hold Doxepin, Prozac, and Effexor in setting of Linezolid use (has been stopped). Plan to resume Thursday. Diabetic Neuropathy - continue gabapentin Cardiac - Elevated Troponin - In setting of sepsis - No chest pain or ECG changes x 3 - In setting of significant vascular disease, metabolic syndrome, and previous imaging demonstrating coronary artery calcifications, suspect likely demand-related ischemia - Will await TTE to evaluate for wall motion abnormalities -- if stable, will require catheterization once more stable / as outpatient - Trop downtrending -- peaked at 1800, around 18.6 - Start ASA 81. Continue statin. - Continue heparin for now. Hold Eliquis in interim. - Consider trial of beta-blockade Tachycardia Suspect compensatory, secondary to underlying inflammation / sepsis. Lower suspicion for cardiogenic etiology at this time. MAPs stable. Good perfusion on exam. Respiratory Acute Hypoxic Respiratory Failure - With tachypnea and evidence of mixed respiratory/metabolic acidosis on labs - Thankfully, no evidence on CT to suggest pulmonary edema or infectious/inflammatory infiltrates. However, +atelectasis, +tracheomalacia, and +obesity noted. - Suspect O2 requirement is mostly secondary to the aforementioned atelectasis, tracheomalacia, and obesity - Lower suspicion for PE at this time. Will await TTE to evaluate RV dynamics. On heparin for NSTEMI. - Continue NC / BiPAP p.r.n. Mixed Respiratory and Metabolic Non-Gap Acidosis - AM VBG revealing of mixed respiratory and metabolic non-gap acidosis - Suspect component of non-anion gap metabolic acidosis is likely related to ongoing diarrhea. Chloride and K are normal, on Normosol. Lactate likely contributed to previous acidosis. - 1 amp of Bicarb now - Continue to monitor renal function, respiratory needs as above. Continue BiPAP. GI - Diarrhea: See ID below. Continue IVF, monitor lytes and replete p.r.n. Diet: Diabetic, heart-healthy diet RENAL/LYTES - Acute Kidney Injury - - On presentation, noted to have BUN / Cr of 33/2.40. Thankfully, this has improved this morning - 30/1.55 after fluid administration. Possible this is prerenal in setting of sepsis -- however, ATN cannot be excluded. Would probably be too soon for post-infectious glomerulonephritis given recency of illness, but also on differential - Continue NormoSol 125cc/hr (s/p ~3.5L so far) - Continue holding home Lasix and ACEI - Sent ASO titer - Monitor BMP - - Jauregui, strict I&Os ENDO - - last a1c in 02/2021 at 8.0, continue ICU hyperglycemia protocol -- transition to SQ when appropriate - Goal range 150-180mg/dL in setting of critical illness HEME - - Stable H&H. Monitor in setting of heparin gtt. ID - Severe Sepsis - patient with diabetes presenting with tachycardia, elevated respiratory rate, leukocytosis, elevated lactate, high temperatures, and ALENA. Suspect this is likely secondary to RLE cellulitis. Possible contribution to diarrhea also noted. Ultrasound and CT scan are revealing for soft tissue edema without osseous involvement or presence of gas. At this time, believe it is suitable to continue her parental antibiotics as mainstay of management - no surgical intervention warranted at this time. - Lower suspicion for toxic shock syndrome at this time, but given his cellulitis, it is considered - criteria not met as of present. Continue antimicrobials and fluid resuscitation. - Await cultures - Continue ertapenem - Transition to daptomycin -- MRSA nares negative, low suspicion for pulmonic infection given CT, lower risk of serotonin syndrome - Continue mIVF - NormoSol 125cc/hr - Monitor UOP, maintain MAPs > 65 Diarrhea - - Approx 6-7 days of watery diarrhea, worsening. No recent use of ABX. No recent hospitalizations. - Etiology unclear right now - will send for C. diff and fecal leukocytes - Careful fluid status monitoring, lyte repletion p.r.n. - Avoid use of antidiarrheals INTEGUMENTARY - Cellulitis - see sepsis management above. LINES/IV ACCESS - PIVs intact. DVT PROPHYLAXIS - - Heparin gtt in setting of ?NSTEMI vs. demand ischemia Thank you for allowing us to be part of this patient's care. Please refer to Dr. Parson's documentation for any further recommendations. (2) NSTEMI (non-ST elevated myocardial infarction): (3) Metabolic acidosis: (4) Cellulitis of right leg: (5) Sepsis: (6) Loose bowel movement: (7) Hip pain: (8) Vitamin D deficiency: (9) Depression: (10) Hypertension: (11) Dyslipidemia: (12) Personal history of diabetic foot ulcer: (13) Diabetes type 2, uncontrolled: (14) Morbid obesity with BMI of 50.0-59.9, adult: (15) Below-knee amputation of left lower extremity: (16) Diabetic peripheral neuropathy associated with type 2 diabetes mellitus: Admission and Anticipated Discharge Date Admission Date: July 31, 2021 Supervising Physician Co-Signing Physician Notes Patient seen and examined. EMR reviewed. Images reviewed independently and with radiologist. Discussed with critical care SARTHAK as well as with with family practice resident. Agree with assessment plan as noted. 51-year-old with sepsis. He also had acute kidney injury and significant lactic acidosis. He is now transitioned to a combined respiratory acidosis likely secondary to tracheomalacia and undiagnosed sleep disordered breathing as well as a non-anion gap metabolic acidosis likely secondary to his acute diarrheal illness and kidney failure. We will give an amp of bicarb. Continue antibiotics but will transition to daptomycin and ertapenem. Hopefully his cultures turn positive we can taper antibiotics. We will continue to follow his lower extremity. There is no evidence of gas formation on the CT scan per my discussion with the radiologist. Unclear if this could represent toxic shock. He is allergic to clindamycin so would not be eligible for that therapy is a toxin mediated form and I would not recommend IVIG given his clinical improvement at this point in time. He did have an elevated troponin. Awaiting echocardiogram. Troponins are trending down. He likely needs some sort of evaluation at some point for underlying coronary disease. Depending on his echo will determine whether or not this needs to be done this admission. We will add aspirin. He remains anticoagulated on heparin for now. We will continue and potentially transition to his DOAC depending on his kidney function and clinical response. Patient was discussed on multidisciplinary rounds. He was assessed frequently throughout the day. A total of 50 minutes critical care time was spent in evaluation management of this patient. Subjective Patient seen at the bedside. Reviewed HPI - reports diarrhea over last ~6-7 days and, at the same time, noticing some increasing warmth within the rash. Fevers, shortness of breath really began last night. He feels ill right now - fatigued, no appetite. Reporting biggest concern, at present, is shortness of breath. He denies chest pain now or over the last several days. No belly pain. Endorses frequent diarrhea - watery. Review of Systems Review of Systems: as per HPI Physical Exam Physical Exam: General: 51yoM who appears ill and diaphoretic, on nasal cannula. Mild distress. HEENT: NCAT. Eyes - Sclera are white, anicteric, and without injection. Mouth - MMM with no tonsillar edema or exudates. Cardiac: Tachycardic with regular rhythm; S1 and S2 present with no murmurs, rubs, or gallops. Pulmonary: Increased respiratory rate with mild increase in respiratory effort. No use of accessory muscles. Lungs were clear to auscultation bilaterally with no crackles or wheezes. Abdominal: Normoactive bowel sounds. Abdomen was soft, nondistended, and non- tender to palpation. Extremities: Upper and lower extremities are warm and well perfused. BKA noted on LEFT side. Visual exam of the RLE does demonstrate venous stasis changes surrounded by blanchable erythema. There is 1-2+ pitting edema. Capillary refill < 3 seconds. Results & Data Results & Data ([facility]) Vital Signs (Past 12 Hours) Vital Signs Temp Pulse Pulse Resp BP Pulse Ox 08/01/21 06:30 39.3 C H 117 H 28 H 119/56 L 94 08/01/21 06:16 117 H 34 H 106/67 97 08/01/21 06:01 116 H 35 H 122/62 99 08/01/21 05:46 117 H 32 H 122/63 100 08/01/21 05:31 116 H 34 H 118/64 99 08/01/21 05:16 118 H 34 H 120/62 96 08/01/21 05:00 117 H 34 H 117/69 97 08/01/21 04:45 39.0 C H 118 H 34 H 122/64 98 08/01/21 04:30 113 H 31 H 96/52 L 08/01/21 04:15 116 H 15 118/60 97 08/01/21 04:01 39.1 C H 114 H 35 H 121/69 95 08/01/21 03:49 38.8 C H 08/01/21 03:31 114 H 37 H 121/60 97 08/01/21 03:16 114 H 34 H 122/64 95 08/01/21 03:01 114 H 36 H 110/62 95 08/01/21 02:45 116 H 34 H 118/61 96 08/01/21 02:30 118 H 33 H 119/82 96 08/01/21 02:15 117 H 39 H 96 08/01/21 02:00 39.1 C H 119 H 21 08/01/21 01:45 39.0 C H 141 H 93 08/01/21 01:30 38.9 C H 113 H 30 H 158/84 H 100 08/01/21 01:15 38.8 C H 113 H 35 H 96 08/01/21 01:00 38.8 C H 111 H 35 H 131/68 96 08/01/21 00:45 38.7 C H 113 H 31 H 98 08/01/21 00:31 38.6 C H 109 H 26 H 116/66 95 08/01/21 00:15 38.5 C H 108 H 32 H 100 08/01/21 00:01 38.5 C H 108 H 34 H 113/71 99 07/31/21 23:45 38.4 C H 110 H 28 H 99 07/31/21 23:31 37.8 C H 108 H 34 H 121/62 97 07/31/21 23:15 105 H 27 H 99 07/31/21 23:08 37.3 C 103 H 32 H 99 07/31/21 23:00 105 H 18 101/64 97 07/31/21 22:57 104 H 22 07/31/21 21:50 116 H 30 H 95 07/31/21 21:30 119 H 30 H 97 07/31/21 21:00 128/61 97 07/31/21 20:30 98 07/31/21 20:20 126 H 29 H 98 07/31/21 20:00 119 H 33 H 97 10/13/21 19:30 126 H 26 H 97
[2021-08-01] MEDS: FAMOTIDINE 20 MG in SYRINGE 3 ML IV SCH ×2 (08:53→19:59)
[2021-08-01] MEDS ORDERED: VENLAFAXINE HCL XR 75 MG CAPXR PO SCH (09:00)
[2021-08-01] MEDS ORDERED: CHOLECALCIFEROL 1,000 UNITS 25 MCG TAB PO SCH (09:00)
[2021-08-01] MEDS ORDERED: DOXEPIN HCL 10 MG CAPSULE PO SCH (09:00)
[2021-08-01] MEDS ORDERED: GABAPENTIN 600 MG TAB PO SCH (09:00)
[2021-08-01] MEDS ORDERED: FLUoxetine HCL 20 MG CAP PO SCH (09:00)
[2021-08-01] MEDS ORDERED: CETIRIZINE HCL 10 MG TABLET PO SCH (09:00)
[2021-08-01] MEDS ORDERED: FUROSEMIDE 40 MG TAB PO SCH (09:00)
[2021-08-01] MEDS ORDERED: ROSUVASTATIN CALCIUM 5 MG TAB PO SCH (09:00)
[2021-08-01] MEDS: INSULIN ASPART 100 UNITS/ML 3 ML PEN SC SCH ×4 (09:14→21:05)
[2021-08-01] MEDS ORDERED: SODIUM BICARB 8.4% INJ 50 MEQ/50 ML SYR IV ONE (09:45)
[2021-08-01] MEDS ORDERED: ASPIRIN 81 MG ECTAB PO SCH (09:45)
[2021-08-01] MEDS ORDERED: LORazepam 2 MG/4 ML VIAL ONE (09:55)
[2021-08-01] MEDS ORDERED: PHARMACY GLYCEMIC MGMT CONSULT PRN (10:39)
[2021-08-01] MEDS ORDERED: DAPTOmycin 750 MG in SYRINGE 0 ML IV SCH ×2 (11:00→20:00)
[2021-08-01] MEDS ORDERED: INSULIN GLARGINE 100 UNIT/ML VIAL SC ONE (11:45)
--- NOTE | 2021-08-01 11:48 | Pharmacy Report ---
Pharmacy Glycemic Short Note 2 - Date of Service August 01, 2021 - Glycemic Short BSG Results (Last 24 hours): 07/31/21 07/31/21 07/31/21 19:00 22:11 22:59 Glucose 312 H* POC Glucose 297 H 304 H* 08/01/21 08/01/21 08/01/21 00:40 01:36 02:40 Glucose POC Glucose 362 H* 338 H* 364 H* 08/01/21 08/01/21 08/01/21 03:36 04:17 05:07 Glucose 283 H POC Glucose 311 H* 313 H* 08/01/21 08/01/21 08/01/21 05:14 06:11 08:18 Glucose POC Glucose 297 H 262 H 183 H 08/01/21 08/01/21 08/01/21 09:18 10:00 10:02 Glucose POC Glucose 173 H 352 H* 182 H 08/01/21 11:19 Glucose POC Glucose 133 H OUTPATIENT ANTIDIABETIC REGIMEN: * Novolog 70/30: 60-100 units SC TIDM * HbA1c 8.0% on 03/08/21 (re-ordered for 08/02/21) ASSESSMENT: * 51 yo M with T2DM complicated by polyneuropathy, previous diabetic ulcers, and below-knee amputation on the left side admitted 07/31 for sepsis 2nd RLE cellulitis, possible NSTEMI, and acute respiratory failure * Patient currently in ICU and on insulin drip running at 20.4 units/hr * Discussed at ICU rounds - continue insulin drip for now, but OK to start Lantus to help increase likelihood of eventual successful transition off of drip * Patient takes a minimum of 180 units of insulin daily as an outpatient (total) - will start Lantus at about half of that amount for now * Will not use insulin drip calculator to determine CHO ratio as Lantus is starting and since the calculator will not suggest a CHO ratio below 5 g CHO/unit (this patient likely requires a tighter CHO ratio) PLAN FOR INPATIENT GLYCEMIC CONTROL: * Continue insulin drip - goal range 110-180 mg/dL. Current rate is 20.4 units/hr * Basal insulin * Lantus 100 units SQ x1 now * Bolus insulin * Nutritional / Prandial insulin per carb ratio of 1 unit per 3 grams CHO consumed PLAN FOR DISCHARGE: * tbd
[2021-08-01 14:02] LABS: Partial Thromboplastin Ratio 1.4; Partial Thromboplastin Time 36.7 Seconds (21.0-31.0)
--- NOTE | 2021-08-01 14:22 | Billing Data ---
Date of Service August 01, 2021 Coding Level of Care Code Critical Care 1st 30-74 mins Time Spent (min) 50
--- NOTE | 2021-08-01 14:32 | XCELERA ---
[id number]
[2021-08-01] MEDS: INSULIN REGULAR 250 UNITS in SODIUM CHLORIDE 0.9% 247.5 ML IV SCH ×2 (15:40→17:07)
--- NOTE | 2021-08-01 16:30 | Electrocardiogram Report ---
Test Reason : Blood Pressure : / mmHG Vent. Rate : 120 BPM Atrial Rate : 120 BPM P-R Int : 178 ms QRS Dur : 096 ms QT Int : 324 ms P-R-T Axes : 071 116 032 degrees QTc Int : 457 ms Sinus tachycardia Low voltage QRS Incomplete right bundle branch block Left posterior fascicular block Cannot rule out Inferior infarct , age undetermined Nonspecific ST abnormality Abnormal ECG When compared with ECG of 28-NOV-2015 18:47, Vent. rate has increased BY 56 BPM Confirmed by Cleveland Carlson ([id number]) on 08/01/2021 4:29:46 PM Referred By: REFERRED SELF Confirmed By:Cleveland Carlson
--- NOTE | 2021-08-01 16:45 | Electrocardiogram Report ---
Test Reason : Blood Pressure : / mmHG Vent. Rate : 117 BPM Atrial Rate : 117 BPM P-R Int : 180 ms QRS Dur : 090 ms QT Int : 332 ms P-R-T Axes : 077 118 038 degrees QTc Int : 463 ms Sinus tachycardia Low voltage QRS Left posterior fascicular block Incomplete right bundle branch block Possible Inferior infarct (cited on or before 31-JUL-2021) Nonspecific ST abnormality Abnormal ECG When compared with ECG of 31-JUL-2021 18:28, No significant change was found Confirmed by Cleveland Carlson ([id number]) on 08/01/2021 4:44:49 PM Referred By: REFERRED SELF Confirmed By:Cleveland Carlson
--- NOTE | 2021-08-01 16:59 | Electrocardiogram Report ---
Test Reason : Blood Pressure : / mmHG Vent. Rate : 115 BPM Atrial Rate : 115 BPM P-R Int : 188 ms QRS Dur : 100 ms QT Int : 324 ms P-R-T Axes : 066 098 026 degrees QTc Int : 448 ms Sinus tachycardia Rightward axis Low voltage QRS Incomplete right bundle branch block Possible Inferior infarct Borderline ECG When compared with ECG of 31-JUL-2021 21:07, No significant change was found Confirmed by Cleveland Carlson ([id number] on 08/01/2021 4:59:28 PM Referred By: REFERRED SELF Confirmed By:Cleveland Carlson
[2021-08-01] MEDS: HEPARIN SOD (PORCINE) 1000 UNIT/ML IV ONE ×2 (17:05→17:14)
[2021-08-01] MEDS ORDERED: ERTAPENEM SODIUM 1,000 MG in SODIUM CHLORIDE 0.9% 50 ML IV SCH (20:00)
[2021-08-01] MEDS: HEPARIN SODIUM/DEXTROSE 25,000 UNITS/500 ML BAG IV SCH (20:01)
[2021-08-01] MEDS ORDERED: TOPIRAMATE 25 MG TAB PO SCH (21:00)
--- NOTE | 2021-08-01 22:07 | Hospitalist Progress Note ---
Date of Service August 01, 2021 Assessment & Plan (1) NSTEMI (non-ST elevated myocardial infarction): Plan: NSTEMI/hypertension/CHF- heparin drip no active chest pain troponin quite high, unclear if primary cardiac event or demand ischemia from severe sepsis (2) Sepsis: Plan: Combination of pulmonary and cellulitis right lower extremity issues. Placed on linezolid IV, and ertapenem IV per pharmacokinetic monitoring follow up blood cultures, BP soft, may need pressors once adequate resuscitated (3) Cellulitis of right leg: Plan: continue broad spectrum antibiotics CT leg does NOT show bony involvement follow up blood cultures (4) ALENA (acute kidney injury): Plan: Creatinine 2.40 upon admission, with baseline 0.87 due to severe sepsis mercado placed for accurate UO measurement aggressive IV fluids follow BMP closely, electrolytes (5) Hypertension: Plan: holding home meds as borderline hypotensive (6) Diabetes type 2, uncontrolled: Plan: Will be placed on insulin drip per protocol while in the ICU (7) Diabetic peripheral neuropathy associated with type 2 diabetes mellitus: Plan: Continue gabapentin (8) Depression: Plan: Continue doxepin, topiramate, fluoxetine and venlafaxine (9) Dyslipidemia: Plan: Continue rosuvastatin Check a fasting lipid panel (10) Morbid obesity with BMI of 50.0-59.9, adult: Plan: Noted (11) Admitted to intensive care unit: Plan: 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 Admission and Anticipated Discharge Date Admission Date: July 31, 2021 Subjective patient requiring BIPAP most of the day to help work of breathing discussed with ICU, they are managing patient most likely source of infection is cellulitis in leg guarded prognosis Review of Systems Review of Systems: All systems reviewed & are unremarkable except as noted in Subjective Physical Exam Physical Exam: General: well developed, morbidly obese, on BIPAP Neck: thick neck, trachea midline Lungs: clear to auscultation bilaterally, tachypnea, accessory muscle use on BIPAP Heart: regular S1 and S2, no murmur, peripheral pulses normal, + 2 edema Abdomen: soft, NT, ND, + BS, no hepatomegaly, normal to percussion Extremities: venous stasis changes, decreased strength generally Neuro: awake, cooperative, moves all extremities, no focal motor deficits, CN II-XII intact, sensation in extremities intact, normal speech Skin: lower extremity cellulitis, very erythematous, drainage Psych: Awake, alert oriented x 3, euthymic affect Results & Data Results & Data ([facility]) Vital Signs (Past 12 Hours) Vital Signs Temp Temp Pulse Resp BP Pulse Ox 08/01/21 21:00 39.6 C H 120 H 30 H 98 08/01/21 20:32 119 H 30 H 95 08/01/21 20:00 120 H 28 H 97 08/01/21 19:00 119 H 29 H 97 08/01/21 18:49 39.3 C H 08/01/21 18:16 39.2 C H 08/01/21 18:00 116 H 26 H 129/70 93 08/01/21 17:00 122 H 30 H 113/67 95 08/01/21 16:00 123 H 19 125/75 93 08/01/21 15:43 39.7 C H 08/01/21 15:00 117 H 32 H 138/72 98 08/01/21 14:00 114 H 23 98 08/01/21 13:00 38.8 C H 114 H 30 H 110/71 96 08/01/21 12:00 119 H 36 H 126/68 96 08/01/21 11:00 120 H 34 H 120/72 96 08/01/21 10:55 39.2 C H 08/01/21 10:39 39.1 C H 08/01/21 10:33 39.1 C H Laboratory Results Laboratory Results - last 24 hr 07/31/21 07/31/21 07/31/21 22:11 22:19 22:59 WBC RBC Hgb POC Hgb 14.3 Hct POC Hct 42 MCV MCH MCHC RDW Std Deviation RDW Coeff of Wil Plt Count MPV Immature Gran % (Auto) Neut % (Auto) Lymph % (Auto) [place] % (Auto) Eos % (Auto) Baso % (Auto) Neut # (Auto) Lymph # (Auto) [place] # (Auto) Eos # (Auto) Baso # (Auto) Immature Gran # (Auto) RBC Morphology PT INR APTT PTT Ratio POC pH 7.35 POC pCO2 32 L POC pO2 40 L POC HCO3 18 L POC Total CO2 19 L POC Base Excess -8.0 POC ABG O2 Sat 73.0 L VBG pH VBG pCO2 VBG pO2 VBG HCO3 VBG O2 Saturation VBG Base Excess Barometric Pressure POC Sodium 128 L Sodium POC Potassium 4.7 Potassium Chloride Carbon Dioxide Anion Gap BUN Creatinine Est Cr Clr Drug Dosing Est GFR ( Amer) Est GFR (Non-Af Amer) BUN/Creatinine Ratio Glucose POC Glucose 297 H 304 H* Lactate Calcium Magnesium Total Bilirubin AST ALT Alkaline Phosphatase Troponin I NT-Pro-B Natriuret Pep Total Protein Albumin Globulin Albumin/Globulin Ratio Nasal Screen MRSA (PCR) Stl C. diff Tox B Gene Anti-Streptolysin O Ab 07/31/21 08/01/21 08/01/21 23:49 00:40 00:50 WBC RBC Hgb POC Hgb Hct POC Hct MCV MCH MCHC RDW Std Deviation RDW Coeff of Wil Plt Count MPV Immature Gran % (Auto) Neut % (Auto) Lymph % (Auto) [place] % (Auto) Eos % (Auto) Baso % (Auto) Neut # (Auto) Lymph # (Auto) [place] # (Auto) Eos # (Auto) Baso # (Auto) Immature Gran # (Auto) RBC Morphology PT INR APTT PTT Ratio POC pH POC pCO2 POC pO2 POC HCO3 POC Total CO2 POC Base Excess POC ABG O2 Sat VBG pH VBG pCO2 VBG pO2 VBG HCO3 VBG O2 Saturation VBG Base Excess Barometric Pressure POC Sodium Sodium POC Potassium Potassium Chloride Carbon Dioxide Anion Gap BUN Creatinine Est Cr Clr Drug Dosing Est GFR ( Amer) Est GFR (Non-Af Amer) BUN/Creatinine Ratio Glucose POC Glucose 362 H* Lactate Calcium Magnesium Total Bilirubin AST ALT Alkaline Phosphatase Troponin I 15.700 H* NT-Pro-B Natriuret Pep Total Protein Albumin Globulin Albumin/Globulin Ratio Nasal Screen MRSA (PCR) Negative Stl C. diff Tox B Gene Anti-Streptolysin O Ab 08/01/21 08/01/21 08/01/21 01:36 02:40 03:19 WBC RBC Hgb POC Hgb Hct POC Hct MCV MCH MCHC RDW Std Deviation RDW Coeff of Wil Plt Count MPV Immature Gran % (Auto) Neut % (Auto) Lymph % (Auto) [place] % (Auto) Eos % (Auto) Baso % (Auto) Neut # (Auto) Lymph # (Auto) [place] # (Auto) Eos # (Auto) Baso # (Auto) Immature Gran # (Auto) RBC Morphology PT INR APTT PTT Ratio POC pH POC pCO2 POC pO2 POC HCO3 POC Total CO2 POC Base Excess POC ABG O2 Sat VBG pH VBG pCO2 VBG pO2 VBG HCO3 VBG O2 Saturation VBG Base Excess Barometric Pressure POC Sodium Sodium POC Potassium Potassium Chloride Carbon Dioxide Anion Gap BUN Creatinine Est Cr Clr Drug Dosing Est GFR ( Amer) Est GFR (Non-Af Amer) BUN/Creatinine Ratio Glucose POC Glucose 338 H* 364 H* Lactate 3.9 H* Calcium Magnesium Total Bilirubin AST ALT Alkaline Phosphatase Troponin I NT-Pro-B Natriuret Pep Total Protein Albumin Globulin Albumin/Globulin Ratio Nasal Screen MRSA (PCR) Stl C. diff Tox B Gene Anti-Streptolysin O Ab 08/01/21 08/01/21 08/01/21 03:36 04:17 05:07 WBC 25.18 H RBC 4.46 L Hgb 13.7 L POC Hgb Hct 38.0 L POC Hct MCV 85.2 MCH 30.7 MCHC 36.1 H RDW Std Deviation 43.1 RDW Coeff of Wil 13.8 Plt Count 187 MPV 9.5 Immature Gran % (Auto) 1.8 Neut % (Auto) 93.8 Lymph % (Auto) 1.2 [place] % (Auto) 3.2 Eos % (Auto) 0.0 Baso % (Auto) 0.0 Neut # (Auto) 23.61 H Lymph # (Auto) 0.31 L [place] # (Auto) 0.80 H Eos # (Auto) 0.00 Baso # (Auto) 0.01 Immature Gran # (Auto) 0.45 H RBC Morphology Unremarkable PT INR APTT PTT Ratio POC pH POC pCO2 POC pO2 POC HCO3 POC Total CO2 POC Base Excess POC ABG O2 Sat VBG pH VBG pCO2 VBG pO2 VBG HCO3 VBG O2 Saturation VBG Base Excess Barometric Pressure POC Sodium Sodium POC Potassium Potassium Chloride Carbon Dioxide Anion Gap BUN Creatinine Est Cr Clr Drug Dosing Est GFR ( Amer) Est GFR (Non-Af Amer) BUN/Creatinine Ratio Glucose POC Glucose 311 H* 313 H* Lactate Calcium Magnesium Total Bilirubin AST ALT Alkaline Phosphatase Troponin I NT-Pro-B Natriuret Pep Total Protein Albumin Globulin Albumin/Globulin Ratio Nasal Screen MRSA (PCR) Stl C. diff Tox B Gene Anti-Streptolysin O Ab 08/01/21 08/01/21 08/01/21 05:07 05:07 05:07 WBC RBC Hgb POC Hgb Hct POC Hct MCV MCH MCHC RDW Std Deviation RDW Coeff of Wil Plt Count MPV Immature Gran % (Auto) Neut % (Auto) Lymph % (Auto) [place] % (Auto) Eos % (Auto) Baso % (Auto) Neut # (Auto) Lymph # (Auto) [place] # (Auto) Eos # (Auto) Baso # (Auto) Immature Gran # (Auto) RBC Morphology PT 14.3 H INR 1.5 H APTT 39.7 H PTT Ratio 1.5 POC pH POC pCO2 POC pO2 POC HCO3 POC Total CO2 POC Base Excess POC ABG O2 Sat VBG pH VBG pCO2 VBG pO2 VBG HCO3 VBG O2 Saturation VBG Base Excess Barometric Pressure POC Sodium Sodium 128 L POC Potassium Potassium 4.1 Chloride 100 Carbon Dioxide 18 L Anion Gap 10.0 BUN 30 H Creatinine 1.55 H D Est Cr Clr Drug Dosing 98.0 Est GFR ( Amer) 58.4 Est GFR (Non-Af Amer) 50.4 BUN/Creatinine Ratio 19.6 Glucose 283 H POC Glucose Lactate Calcium 8.1 L Magnesium 2.1 Total Bilirubin 1.3 H AST 156 H ALT 50 Alkaline Phosphatase 52 Troponin I 10.800 H* Cancelled NT-Pro-B Natriuret Pep Total Protein 6.7 Albumin 2.6 L Globulin 4.1 H Albumin/Globulin Ratio 0.6 L Nasal Screen MRSA (PCR) Stl C. diff Tox B Gene Anti-Streptolysin O Ab 08/01/21 08/01/21 08/01/21 05:07 05:14 05:42 WBC RBC Hgb POC Hgb Hct POC Hct MCV MCH MCHC RDW Std Deviation RDW Coeff of Wil Plt Count MPV Immature Gran % (Auto) Neut % (Auto) Lymph % (Auto) [place] % (Auto) Eos % (Auto) Baso % (Auto) Neut # (Auto) Lymph # (Auto) [place] # (Auto) Eos # (Auto) Baso # (Auto) Immature Gran # (Auto) RBC Morphology PT INR APTT PTT Ratio POC pH POC pCO2 POC pO2 POC HCO3 POC Total CO2 POC Base Excess POC ABG O2 Sat VBG pH 7.26 L VBG pCO2 48 VBG pO2 21 VBG HCO3 21 VBG O2 Saturation < 60.0 VBG Base Excess -6.3 Barometric Pressure 732.7 POC Sodium Sodium POC Potassium Potassium Chloride Carbon Dioxide Anion Gap BUN Creatinine Est Cr Clr Drug Dosing Est GFR ( Amer) Est GFR (Non-Af Amer) BUN/Creatinine Ratio Glucose POC Glucose 297 H Lactate Calcium Magnesium Total Bilirubin AST ALT Alkaline Phosphatase Troponin I NT-Pro-B Natriuret Pep 1852 H Total Protein Albumin Globulin Albumin/Globulin Ratio Nasal Screen MRSA (PCR) Stl C. diff Tox B Gene Anti-Streptolysin O Ab 08/01/21 08/01/21 08/01/21 06:11 08:18 09:18 WBC RBC Hgb POC Hgb Hct POC Hct MCV MCH MCHC RDW Std Deviation RDW Coeff of Wil Plt Count MPV Immature Gran % (Auto) Neut % (Auto) Lymph % (Auto) [place] % (Auto) Eos % (Auto) Baso % (Auto) Neut # (Auto) Lymph # (Auto) [place] # (Auto) Eos # (Auto) Baso # (Auto) Immature Gran # (Auto) RBC Morphology PT INR APTT PTT Ratio POC pH POC pCO2 POC pO2 POC HCO3 POC Total CO2 POC Base Excess POC ABG O2 Sat VBG pH VBG pCO2 VBG pO2 VBG HCO3 VBG O2 Saturation VBG Base Excess Barometric Pressure POC Sodium Sodium POC Potassium Potassium Chloride Carbon Dioxide Anion Gap BUN Creatinine Est Cr Clr Drug Dosing Est GFR ( Amer) Est GFR (Non-Af Amer) BUN/Creatinine Ratio Glucose POC Glucose 262 H 183 H 173 H Lactate Calcium Magnesium Total Bilirubin AST ALT Alkaline Phosphatase Troponin I NT-Pro-B Natriuret Pep Total Protein Albumin Globulin Albumin/Globulin Ratio Nasal Screen MRSA (PCR) Stl C. diff Tox B Gene Anti-Streptolysin O Ab 08/01/21 08/01/21 08/01/21 09:51 10:00 10:02 WBC RBC Hgb POC Hgb Hct POC Hct MCV MCH MCHC RDW Std Deviation RDW Coeff of Wil Plt Count MPV Immature Gran % (Auto) Neut % (Auto) Lymph % (Auto) [place] % (Auto) Eos % (Auto) Baso % (Auto) Neut # (Auto) Lymph # (Auto) [place] # (Auto) Eos # (Auto) Baso # (Auto) Immature Gran # (Auto) RBC Morphology PT INR APTT PTT Ratio POC pH POC pCO2 POC pO2 POC HCO3 POC Total CO2 POC Base Excess POC ABG O2 Sat VBG pH VBG pCO2 VBG pO2 VBG HCO3 VBG O2 Saturation VBG Base Excess Barometric Pressure POC Sodium Sodium POC Potassium Potassium Chloride Carbon Dioxide Anion Gap BUN Creatinine Est Cr Clr Drug Dosing Est GFR ( Amer) Est GFR (Non-Af Amer) BUN/Creatinine Ratio Glucose POC Glucose 352 H* 182 H Lactate Calcium Magnesium Total Bilirubin AST ALT Alkaline Phosphatase Troponin I NT-Pro-B Natriuret Pep Total Protein Albumin Globulin Albumin/Globulin Ratio Nasal Screen MRSA (PCR) Stl C. diff Tox B Gene Anti-Streptolysin O Ab Pending 08/01/21 08/01/21 08/01/21 11:19 11:33 11:57 WBC RBC Hgb POC Hgb Hct POC Hct MCV MCH MCHC RDW Std Deviation RDW Coeff of Wil Plt Count MPV Immature Gran % (Auto) Neut % (Auto) Lymph % (Auto) [place] % (Auto) Eos % (Auto) Baso % (Auto) Neut # (Auto) Lymph # (Auto) [place] # (Auto) Eos # (Auto) Baso # (Auto) Immature Gran # (Auto) RBC Morphology PT INR APTT PTT Ratio POC pH POC pCO2 POC pO2 POC HCO3 POC Total CO2 POC Base Excess POC ABG O2 Sat VBG pH VBG pCO2 VBG pO2 VBG HCO3 VBG O2 Saturation VBG Base Excess Barometric Pressure POC Sodium Sodium POC Potassium Potassium Chloride Carbon Dioxide Anion Gap BUN Creatinine Est Cr Clr Drug Dosing Est GFR ( Amer) Est GFR (Non-Af Amer) BUN/Creatinine Ratio Glucose POC Glucose 133 H 129 H Lactate Calcium Magnesium Total Bilirubin AST ALT Alkaline Phosphatase Troponin I NT-Pro-B Natriuret Pep Total Protein Albumin Globulin Albumin/Globulin Ratio Nasal Screen MRSA (PCR) Stl C. diff Tox B Gene Negative Cdiff Gene Anti-Streptolysin O Ab 08/01/21 08/01/21 08/01/21 13:07 13:33 14:00 WBC RBC Hgb POC Hgb Hct POC Hct MCV MCH MCHC RDW Std Deviation RDW Coeff of Wil Plt Count MPV Immature Gran % (Auto) Neut % (Auto) Lymph % (Auto) [place] % (Auto) Eos % (Auto) Baso % (Auto) Neut # (Auto) Lymph # (Auto) [place] # (Auto) Eos # (Auto) Baso # (Auto) Immature Gran # (Auto) RBC Morphology PT INR APTT 36.7 H PTT Ratio 1.4 POC pH POC pCO2 POC pO2 POC HCO3 POC Total CO2 POC Base Excess POC ABG O2 Sat VBG pH VBG pCO2 VBG pO2 VBG HCO3 VBG O2 Saturation VBG Base Excess Barometric Pressure POC Sodium Sodium POC Potassium Potassium Chloride Carbon Dioxide Anion Gap BUN Creatinine Est Cr Clr Drug Dosing Est GFR ( Amer) Est GFR (Non-Af Amer) BUN/Creatinine Ratio Glucose POC Glucose 130 H 108 H Lactate Calcium Magnesium Total Bilirubin AST ALT Alkaline Phosphatase Troponin I NT-Pro-B Natriuret Pep Total Protein Albumin Globulin Albumin/Globulin Ratio Nasal Screen MRSA (PCR) Stl C. diff Tox B Gene Anti-Streptolysin O Ab 08/01/21 08/01/21 08/01/21 14:55 14:56 15:59 WBC RBC Hgb POC Hgb Hct POC Hct MCV MCH MCHC RDW Std Deviation RDW Coeff of Wil Plt Count MPV Immature Gran % (Auto) Neut % (Auto) Lymph % (Auto) [place] % (Auto) Eos % (Auto) Baso % (Auto) Neut # (Auto) Lymph # (Auto) [place] # (Auto) Eos # (Auto) Baso # (Auto) Immature Gran # (Auto) RBC Morphology PT INR APTT PTT Ratio POC pH POC pCO2 POC pO2 POC HCO3 POC Total CO2 POC Base Excess POC ABG O2 Sat VBG pH VBG pCO2 VBG pO2 VBG HCO3 VBG O2 Saturation VBG Base Excess Barometric Pressure POC Sodium Sodium POC Potassium Potassium Chloride Carbon Dioxide Anion Gap BUN Creatinine Est Cr Clr Drug Dosing Est GFR ( Amer) Est GFR (Non-Af Amer) BUN/Creatinine Ratio Glucose POC Glucose 114 H 103 H Lactate Calcium Magnesium Total Bilirubin AST ALT Alkaline Phosphatase Troponin I 10.600 H* NT-Pro-B Natriuret Pep Total Protein Albumin Globulin Albumin/Globulin Ratio Nasal Screen MRSA (PCR) Stl C. diff Tox B Gene Anti-Streptolysin O Ab 08/01/21 08/01/21 08/01/21 16:58 18:13 18:53 WBC RBC Hgb POC Hgb Hct POC Hct MCV MCH MCHC RDW Std Deviation RDW Coeff of Wil Plt Count MPV Immature Gran % (Auto) Neut % (Auto) Lymph % (Auto) [place] % (Auto) Eos % (Auto) Baso % (Auto) Neut # (Auto) Lymph # (Auto) [place] # (Auto) Eos # (Auto) Baso # (Auto) Immature Gran # (Auto) RBC Morphology PT INR APTT PTT Ratio POC pH POC pCO2 POC pO2 POC HCO3 POC Total CO2 POC Base Excess POC ABG O2 Sat VBG pH VBG pCO2 VBG pO2 VBG HCO3 VBG O2 Saturation VBG Base Excess Barometric Pressure POC Sodium Sodium POC Potassium Potassium Chloride Carbon Dioxide Anion Gap BUN Creatinine Est Cr Clr Drug Dosing Est GFR ( Amer) Est GFR (Non-Af Amer) BUN/Creatinine Ratio Glucose POC Glucose 119 H 128 H 117 H Lactate Calcium Magnesium Total Bilirubin AST ALT Alkaline Phosphatase Troponin I NT-Pro-B Natriuret Pep Total Protein Albumin Globulin Albumin/Globulin Ratio Nasal Screen MRSA (PCR) Stl C. diff Tox B Gene Anti-Streptolysin O Ab 08/01/21 08/01/21 20:30 21:05 WBC RBC Hgb POC Hgb Hct POC Hct MCV MCH MCHC RDW Std Deviation RDW Coeff of Wil Plt Count MPV Immature Gran % (Auto) Neut % (Auto) Lymph % (Auto) [place] % (Auto) Eos % (Auto) Baso % (Auto) Neut # (Auto) Lymph # (Auto) [place] # (Auto) Eos # (Auto) Baso # (Auto) Immature Gran # (Auto) RBC Morphology PT INR APTT Pending PTT Ratio Pending POC pH POC pCO2 POC pO2 POC HCO3 POC Total CO2 POC Base Excess POC ABG O2 Sat VBG pH VBG pCO2 VBG pO2 VBG HCO3 VBG O2 Saturation VBG Base Excess Barometric Pressure POC Sodium Sodium POC Potassium Potassium Chloride Carbon Dioxide Anion Gap BUN Creatinine Est Cr Clr Drug Dosing Est GFR ( Amer) Est GFR (Non-Af Amer) BUN/Creatinine Ratio Glucose POC Glucose 111 H Lactate Calcium Magnesium Total Bilirubin AST ALT Alkaline Phosphatase Troponin I NT-Pro-B Natriuret Pep Total Protein Albumin Globulin Albumin/Globulin Ratio Nasal Screen MRSA (PCR) Stl C. diff Tox B Gene Anti-Streptolysin O Ab Microbiology 07/31/21 19:05 Blood Aerobic Blood Culture - Preliminary No growth in Aerobic bottle after 24 hours. 07/31/21 19:05 Blood Anaerobic Blood Culture - Preliminary No growth in Anaerobic bottle after 24 hours. 07/31/21 19:00 Blood Aerobic Blood Culture - Preliminary No growth in Aerobic bottle after 24 hours. 07/31/21 19:00 Blood Anaerobic Blood Culture - Preliminary No growth in Anaerobic bottle after 24 hours. 08/01/21 11:33 Stool WBC Smear - Final 07/31/21 18:35 Urine,Clean Catch Urine Culture - Preliminary Pin-point growth present, reincubating. Medications Administered Current Inpatient Medications Acetaminophen (Acetaminophen 325 Mg Tab) 650 mg PO Q4H PRN PRN Reason: Fever Stop: 08/31/21 00:47 Last Admin: 08/01/21 15:30 Dose: 650 mg Documented by: Albuterol (Albut/Ipratrop 3mg/0.5mg Neb 3 Ml Vial) 3 ml INH Q4H PRN PRN Reason: Dyspnea Stop: 08/30/21 23:05 Aspirin (Aspirin 81 Mg Ectab) 81 mg PO DAILY [facility] Stop: 08/31/21 09:44 Last Admin: 08/01/21 11:10 Dose: 81 mg Documented by: Cetirizine HCl (Cetirizine Hcl 10 Mg Tablet) 10 mg PO DAILY [facility] Stop: 08/31/21 08:59 Last Admin: 08/01/21 08:47 Dose: 10 mg Documented by: Dextrose (Dextrose 50% 50 Ml Syringe) 25 - 50 ml IV UD PRN; Protocol PRN Reason: Hypoglycemia Protocol Stop: 08/30/21 23:14 Doxepin HCl (Doxepin Hcl 10 Mg Capsule) 10 mg PO DAILY [facility] Stop: 08/31/21 08:59 Fluoxetine HCl (Fluoxetine Hcl 20 Mg Cap) 60 mg PO DAILY [facility] Stop: 08/31/21 08:59 Gabapentin (Gabapentin 600 Mg Tab) 600 mg PO DAILY [facility] Stop: 08/31/21 08:59 Last Admin: 08/01/21 08:47 Dose: 600 mg Documented by: Glucagon (Glucagon For Inj 1 Mg Vial) 1 mg IM UD PRN; Protocol PRN Reason: Hypoglycemia Protocol Stop: 08/30/21 23:14 Glucose (Glucose 40% Gel 15 Gm Tube) 15 - 30 gm PO UD PRN; Protocol PRN Reason: Hypoglycemia Protocol Stop: 08/30/21 23:14 Glucose (Glucose 10 Tabs/Tube) 4 - 8 tabs PO UD PRN; Protocol PRN Reason: Hypoglycemia Protocol Stop: 08/30/21 23:14 Insulin Human Regular 250 (units/ Sodium Chloride) 250 mls @ 13 mls/hr IV .[id number] [facility]; Protocol Stop: 08/30/21 21:59 Last Titration: 08/01/21 18:55 Dose: 13 units/hr, 13 mls/hr Documented by: Heparin Sodium/Dextrose (Heparin Sodium/Dextrose) 25,000 units in 500 mls @ 28 mls/hr IV .[id number] [facility]; Protocol Stop: 08/30/21 23:14 Last Admin: 08/01/21 20:01 Dose: 1,400 units/hr, 28 mls/hr Documented by: Famotidine 20 mg/ Syringe 5 mls @ 2.5 mls/min IV Q12 [facility] Stop: 08/30/21 23:05 Last Admin: 08/01/21 19:59 Dose: 2.5 mls/min Documented by: Ertapenem 1,000 mg/ Sodium (Chloride) 60 mls @ 100 mls/hr IV Q24H [facility] Stop: 08/08/21 19:59 Last Infusion: 08/01/21 20:36 Dose: Infused Documented by: Parenteral Electrolytes (Normosol-R) 1,000 mls @ 125 mls/hr IV .Q8H [facility] Stop: 08/31/21 05:29 Last Admin: 08/01/21 15:01 Dose: 125 mls/hr Documented by: Daptomycin 750 mg/ Syringe 15 mls @ 7.5 mls/min IV DAILY@2000 [facility]; Protocol Stop: 08/08/21 19:59 Last Admin: 08/01/21 20:00 Dose: 7.5 mls/min Documented by: Insulin Aspart (Insulin Aspart 100 Units/Ml 3 Ml Pen) 0 units SC ACHS [facility] Stop: 08/31/21 07:29 Last Admin: 08/01/21 21:05 Dose: Not Given Documented by: Miscellaneous (Carbohydrates For Hypoglycemia ) 15 - 30 gm PO PRN PRN PRN Reason: Hypoglycemia Treatment Stop: 08/30/21 23:14 Miscellaneous Information (Pharmacy Glycemic Mgmt Consult) 1 ea N/A UD PRN PRN Reason: Consult Stop: 08/31/21 10:38 Rosuvastatin Calcium (Rosuvastatin Calcium 5 Mg Tab) 5 mg PO DAILY [facility] Stop: 08/31/21 08:59 Last Admin: 08/01/21 08:47 Dose: 5 mg Documented by: Topiramate (Topiramate 25 Mg Tab) 25 mg PO HS [facility] Stop: 08/31/21 20:59 Last Admin: 08/01/21 20:00 Dose: 25 mg Documented by: Venlafaxine HCl (Venlafaxine Hcl Xr 75 Mg Capxr) 75 mg PO DAILY [facility] Stop: 08/31/21 08:59 Vitamin D (Cholecalciferol 1,000 Units 25 Mcg Tab) 5,000 units PO DAILY [facility] Stop: 08/31/21 08:59 Last Admin: 08/01/21 08:47 Dose: 5,000 units Documented by: PG Care Time/CCT Total # of Minutes Spent Total Time Spent with Patient: Total time spent is greater than 50% in coordination of care (as documented) at patient's floor/unit and/or counseling patient: Coding Level of Care Code 68843 Subseq Hosp Care Lvl 3 Diagnoses NSTEMI (non-ST elevated myocardial infarction) I21.4 Sepsis A41.9 Cellulitis of right leg L03.115 ALENA (acute kidney injury) N17.9 Hypertension I10 Diabetes type 2, uncontrolled E11.65 Diabetic peripheral neuropathy associated with type 2 diabetes mellitus E11.42 Depression F32.9 Dyslipidemia E78.5 Morbid obesity with BMI of 50.0-59.9, adult E66.01; Z68.43 Admitted to intensive care unit Z78.9
[2021-08-01 22:27] LABS: Partial Thromboplastin Time 51.7 Seconds (21.0-31.0)
[2021-08-01] MEDS ORDERED: SODIUM CHLORIDE 0.9% 250 ML IV PRN (22:59)
[2021-08-01 23:41] LABS: Hematocrit (blood only) 35.6 % (42-52); Hemoglobin 12.3 g/dL (14.0-18.0); Mean Corpuscular Hemoglobin 30.1 pg (25-34); Mean Platelet Volume 9.6 fL (7.4-10.4); Platelet Count 171 K/uL (130-400); RDW Standard Deviation 45.1 fL (36.4-46.3); Red Blood Count 4.09 M/uL (4.7-6.1); White Blood Count 24.23 K/uL (4.8-10.8)
[2021-08-02 00:02] LABS: Dohle Bodies 2+; Echinocytes 1+; Immature Granulocytes # (auto) 0.22 K/uL (0.00-0.02); Immature Granulocytes % (auto) 0.9 %; Lymphocytes # (auto) 1.11 K/uL (1.2-3.4); Lymphocytes % (auto) 4.6 %; Mean Corpuscular Hgb Conc 34.6 g/dL (32-36); Monocytes # (auto) 0.97 K/uL (0.11-0.59); Neutrophils # (auto) 21.93 K/uL (1.4-6.5); Neutrophils % (auto) 90.5 %
[2021-08-02] MEDS ORDERED: RAPID SEQUENCE INDUCTION BAG ONE (00:18)
[2021-08-02] MEDS ORDERED: MIDAZOLAM HCL 1 MG/ML 2ML VIAL IV PRN (00:35)
[2021-08-02] MEDS ORDERED: PROPOFOL BOLUS FROM BAG IV PRN (00:35)
[2021-08-02] MEDS ORDERED: STAT IV Infusion **Titration per Protocol STA ×2 (00:35→03:55)
[2021-08-02] MEDS ORDERED: PROPOFOL IV EMULSION 10 MG/ML 100 ML VIAL IV ONE (00:36)
[2021-08-02] MEDS ORDERED: fentaNYL citrate 2,500 MCG/250 ML BAG IV ONE (00:38)
--- NOTE | 2021-08-02 00:43 | Communication Note ---
Date of Service: August 02, 2021 I was called to emergently intubate the patient due to respiratory distress. The patient was pre-oxygenated with 100% O2 by mask. The patient was administered etomidate 20mg and succinylcholine 200 mg intravenously. A glidescope #4 was used to intubate the trachea atraumatically with 1 attempt. An 8.0 endotracheal tube was secured 27 cm at the teeth. There was color change verifying CO2 and there were B/L breath sounds. The patient's vital signs remained at baseline post-intubation. The patient's O2 saturation was 97-98% throughout the intubation. A CXR was ordered for tube placement. Care was returned to the ICU team.
[2021-08-02] MEDS ORDERED: fentaNYL DRIP 1,250 MCG/250 ML BAG IV SCH (00:45)
[2021-08-02] MEDS ORDERED: MIDAZOLAM HCL 5 MG/ML 1 ML VIAL ONE (00:49)
[2021-08-02] MEDS: propofoL 1,000 MG/100 ML VIAL IV SCH ×3 (01:00→08:35)
[2021-08-02] MEDS ORDERED: SODIUM CHLORIDE 0.9% 250 ML IV PRN ×2 (01:42→05:49)
[2021-08-02 01:54] LABS: iSTAT Art Bld Gas pCO2 Correct 41 mmHg (35-46); iSTAT Art Bld Gas pH Corrected 7.283 (7.35-7.45); iSTAT Arterial Blood Gas HCO3 19 meg/L (19-24); iSTAT Arterial Blood Gas pCO2 41 mmHg (35-46); iSTAT Arterial Blood Gas pH 7.28 (7.35-7.45); iSTAT Arterial Blood Gas pO2 97 mmHg (80-95); iSTAT Arterial Blood Gas pO2 C 97; iSTAT Carbon Dioxide 21 mmol/L (24-31); iSTAT FiO2 60 %; iSTAT Hematocrit 29 % (42-52); iSTAT Hemoglobin 9.9 g/dl (14.0-18.0); iSTAT Potassium 3.9 mmol/L (3.3-5.0); iSTAT Site Art Line; iSTAT Sodium 133 mmol/L (135-144)
[2021-08-02] MEDS: NOREPINEPHRINE/D5W 8 MG/508 ML BAG IV SCH ×2 (02:14→09:08)
[2021-08-02] MEDS: PANTOprazole 40 MG in SYRINGE 0 ML IV SCH ×2 (02:14→08:36)
--- NOTE | 2021-08-02 02:15 | Procedure Note ---
Procedure Note Date of Service August 02, 2021 Note ARTERIAL LINE PROCEDURE NOTE: Procedure: Arterial Line Placement Proceduralist: Dre KLEIN Attending: Dr. Mohr Need: Emergent Indication: Monitoring on Pressors Anesthesia: [x]Lidocaine 1% Consent: Emergent procedure secondary to hypotension/frequent blood draws/vasopressor A time-out was completed verifying correct patient, procedure, site, positioning, and implant(s) or special equipment if applicable. Allens test was performed to ensure adequate perfusion. Patients Left wrist was prepped and draped in the usual sterile fashion cleansed with chlorahexadine. Ultrasound guidance was used to delicatessen department manager vessel aid in needle puncture. A 20g Arrow arterial line was introduced into the left radial artery. Catheter was threaded, and the needle was removed with appropriate blood return. Good waveform was observed. The patient tolerated the procedure well. Confirmation of placement with ultrasound. Blood Loss: Minimal Complications: None Procedural Ultrasound Guidance: Procedure Date: 1229 Indication: hypotension/frequent blood draws/vasopressor Attending: Dr. MOHR Artery Identified: YES Line confirmed in Artery with ultrasound: yes Complications: NONE Patient tolerated procedure: WELL Coding
--- NOTE | 2021-08-02 02:21 | Procedure Note ---
Procedure Note Date of Service August 02, 2021 Note Attending: Dr. MOHR APC: Dre KLEIN ([facility] Indication: Central Drug Administration, Poor Venous Access, Multiple Lab Draws Necessary, etc. Anesthesia: [x]Lidocaine 1% Consent: Emergent A time-out was completed verifying correct patient, procedure, site, positioning, and implants(s) or special equipment if applicable. Patients Right Neck was cleansed with Chlorahexadine and draped in the typical sterile fashion using Chloraprep. The Right Internal Jugular Vein and Carotid Artery were identified using ultrasound. The superficial tissue was anesthetized using 3 mL of 1% lidocaine without epinephrine under direct visualization with the ultrasound. After adequate anesthetization was achieved, the RIGHT Internal Jugular vein was cannulated under direct ultrasound guidance using an introducer needle on a syringe. Good venous blood return was maintained prior to removal of syringe from introducer needle. Using Seldinger Technique, a guide wire was advanced through the introducer needle without resistance. The introducer needle was removed and the guide wire was visualized in the right IJ. A small incision was made in penetrating fashion at the guide wire insertion site utilizing an 11 blade scalpel. The dilator was advanced to the vessel without resistance. The dilator was exchanged for the triple lumen catheter which was advanced into the vessel without resistance. The guide wire was removed intact from the catheter without issue. Claves were placed on each catheter tip with confirmation of good blood flow from each lumen. Each port was easily flushed with sterile saline. The catheter was placed at [16] cm and sutured in place. A sterile Tegaderm dressing was applied over the catheter with careful attention to sterility. Patient tolerated procedure well. No immediate complications were met. Post procedure x-ray was completed, placement was appropriate and no pneumothorax was noted. Procedural Ultrasound Guidance: Procedure Date: Indication: Vasopressor need for central access Attending: Dr. MOHR Artery AND Vein visualized: YES Compressible Vein: YES Guidewire or Short Catheter seen in vein prior to dilation: YES Line confirmed in Vein with ultrasound: YES Coding
--- NOTE | 2021-08-02 02:32 | Communication Note ---
Date of Service: August 01, 2021 2315: Patient noted to have large maroon melanic stool with clots coming from rectum. The patient also stated that he was having some lower abdominal pain prior to this bowel movement. The patient's DigniShield was removed as well as Heparin drip discontinued. Patient HR 130s at his baseline but did decrease his BP from 150-110s, with quick rebound back to 130s. Type and cross ordered for 2 units of PRBC- HGB 12.3. The patient also had another loose moderate sized melanic stool with clots at 0100. His RR was increasing to mid 40s as well as HR increasing to 140s, and confusion. He was maintaining his oxygenation. The decision was made to intubate the patient for likely impending respiratory failure, and needing resuscitation for his LGIB, imaging of his abdomen and pelvis and possible GI intervention in the morning. I did consult GI and discussed the case with them real time, would like PPI BID and CTA of the abdomen and pelvis. Discussed with Dr. Parson for new onset GIB and proceeding to elective intubation. Discussed the Case with Anesthesia Dr. Shell who performed elective intubation without any difficulty. Patient received etomidate and Succ for sedation and paralysis. Patient was then placed on Propofol and Fentanyl for sedation and RASS -2. Levophed was started for hypotension while awaiting PRBCs. Arterial line was placed in left radial artery and CVL was placed in Right IJ for sedation and pressors. If large volume resuscitation needed can change out to introducer/MAC. Continue to follow patient lower GI output, hemodynamic status and HGB levels. Patient remains critically ill with multiorgan dysfunction now with LGIB. Stablize the patient and obtain CT of abdomen and pelvis, defer contrast secondary to ALENA, unless large volume melena occurs again.
[2021-08-02 02:42] LABS: Hematocrit (blood only) 31.6 % (42-52); Hemoglobin 10.9 g/dL (14.0-18.0); Mean Corpuscular Hemoglobin 29.9 pg (25-34); Mean Corpuscular Hgb Conc 34.5 g/dL (32-36); Mean Corpuscular Volume 86.8 fL (80-100); Mean Platelet Volume 9.7 fL (7.4-10.4); Platelet Count 202 K/uL (130-400); Red Blood Count 3.64 M/uL (4.7-6.1); White Blood Count 28.72 K/uL (4.8-10.8)
[2021-08-02 02:52] LABS: INR 1.2 (0.9-1.1); Partial Thromboplastin Ratio 1.3; Partial Thromboplastin Time 33.1 Seconds (21.0-31.0); Prothrombin Time 11.8 Seconds (9.0-12.0)
[2021-08-02] MEDS ORDERED: ACETAMINOPHEN 1,000 MG/100 ML VIAL IV PRN (02:52)
[2021-08-02 03:00] LABS: BUN Creatinine Ratio 17.8 (10-20); Calcium 7.6 mg/dl (8.5-10.1); Creatinine Clr Calc Pharmacy 99.9 ml/min; Est GFR (African American) 59.8 ml/min; Est GFR (Non-African American) 51.6 ml/min; Magnesium 2.2 mg/dl (1.8-2.4); Potassium 4.1 mmol/L (3.5-5.1)
[2021-08-02 03:09] LABS: ALC (manual) 0.49 K/uL (1.2-3.4); ANC (manual) 27.23 K/uL (1.4-6.5); Dohle Bodies 1+; Lymphocytes # (manual) 0.49 K/uL (1.2-3.4); Lymphocytes % (manual) 1.7 %; Monocytes # (manual) 1.01 K/uL (0.11-0.59); Monocytes % (manual) 3.5 %; Neutrophils # (manual) 27.23 K/uL (1.4-6.5); Neutrophils % (manual) 94.8 %
[2021-08-02 03:20] LABS: Albumin Globulin Ratio 0.5 (0.9-2); Bilirubin,Total 0.7 mg/dl (0.2-1); Globulin 3.7 gm/dl (2.5-4.0); Total Protein 5.7 gm/dl (6.4-8.2); Troponin I 9.45 ng/ml (0-0.045)
[2021-08-02] MEDS: NORMOSOL-R 1,000 ML IV SCH (03:27)
[2021-08-02] MEDS ORDERED: CALCIUM GLUCONATE 10% 2,000 MG in SODIUM CHLORIDE 0.9% 50 ML IV ONE (03:30)
[2021-08-02 04:40] LABS: C Reactive Protein 22.6 mg/dl (0-0.29)
[2021-08-02 04:43] LABS: Hematocrit (blood only) 31.1 % (42-52); Hemoglobin 10.5 g/dL (14.0-18.0); Mean Corpuscular Hemoglobin 29.6 pg (25-34); Mean Corpuscular Hgb Conc 33.8 g/dL (32-36); Mean Corpuscular Volume 87.6 fL (80-100); Mean Platelet Volume 9.5 fL (7.4-10.4); Platelet Count 175 K/uL (130-400); RDW Coefficient of Variation 14.1 % (11.5-14.5); RDW Standard Deviation 45.6 fL (36.4-46.3); Red Blood Count 3.55 M/uL (4.7-6.1); White Blood Count 28.18 K/uL (4.8-10.8)
[2021-08-02] MEDS: VASOPRESSIN 20 UNITS in 0.9 % SODIUM CHLORIDE 100 ML IV SCH ×2 (04:54→09:47)
[2021-08-02 05:02] LABS: Basophils # (auto) 0.01 K/uL (0-0.2); Dohle Bodies 2+; Echinocytes 1+; Immature Granulocytes # (auto) 0.39 K/uL (0.00-0.02); Immature Granulocytes % (auto) 1.4 %; Lymphocytes # (auto) 0.95 K/uL (1.2-3.4); Lymphocytes % (auto) 3.4 %; Monocytes # (auto) 1.68 K/uL (0.11-0.59); Neutrophils # (auto) 25.15 K/uL (1.4-6.5); Neutrophils % (auto) 89.2 %; Toxic Vacuolation Occasional
[2021-08-02 05:23] LABS: iSTAT Art Bld Gas pCO2 Correct 50 mmHg (35-46); iSTAT Art Bld Gas pH Corrected 7.228 (7.35-7.45); iSTAT Arterial Blood Gas HCO3 21 meg/L (19-24); iSTAT Arterial Blood Gas pCO2 48 mmHg (35-46); iSTAT Arterial Blood Gas pH 7.24 (7.35-7.45); iSTAT Arterial Blood Gas pO2 88 mmHg (80-95); iSTAT Arterial Blood Gas pO2 C 93; iSTAT Carbon Dioxide 22 mmol/L (24-31); iSTAT FiO2 45 %; iSTAT Hematocrit 32 % (42-52); iSTAT Hemoglobin 10.9 g/dl (14.0-18.0); iSTAT Potassium 4.1 mmol/L (3.3-5.0); iSTAT Site Art Line; iSTAT Sodium 133 mmol/L (135-144)
--- NOTE | 2021-08-02 06:43 | Critical Care Progress Note ---
Date of Service August 02, 2021 Assessment & Plan (1) ALENA (acute kidney injury): Plan: Reason Critically Ill: Wyatt is a 51-year-old male with a notable history of type 2 diabetes complicated by polyneuropathy, previous diabetic ulcers, and below-knee amputation on the left side; obesity, hypertension, hyperlipidemia, history of DVT on Eliquis who presented to [facility] with a chief complaint of right lower extremity pain, warmth, fevers, chills, and night sweats. On his arrival, he was found to have evidence of cellulitis involving the right lower extremity and severe sepsis. Troponins were also significantly elevated to 18, without chest pain, and he was started on a heparin drip. He was placed empirically on linezolid and ertapenem given his allergies to clindamycin (hives), cefepime (?rash), vancomycin (Marimar syndrome), Zosyn (skin rash, itching - ?mild). Unfortunately, throughout his stay, he continued to clinically deteriorate and develop tachypnea, worsening tachycardia, renal function, elevated CPK. On 08/01 at 2330, he passed several large, melanotic stools. He required emergent intubation and initiation of pressors alongside 2U pRBC. GI consultation was obtained for urgent scope, but - unfortunately - give his hemodynamic instability, was not deemed a suitable candidate. He requires transfer to a tertiary care facility for urgent IR angiography and embolization; at this location, may require soft tissue intervention and surgical consultation, as well as further management of presumed TSS. Neuro - [facility] ICU: Negative. Depression - hold Doxepin, Prozac, and Effexor in setting of previous Linezolid use Diabetic Neuropathy - continue gabapentin Cardiac - Elevated Troponin - In setting of sepsis - No chest pain or ECG changes x 3 - In setting of significant vascular disease, metabolic syndrome, and previous imaging demonstrating coronary artery calcifications, possible this represents significant demand ischemia vs. NSTEMI - TTE: normal biventricular function (LVEF 60-65), mild cLVH, no valvular abnormalities. - Trop downtrending -- peaked at 1800 on 07/31, around 18.6 - Start ASA 81. Continue statin. - Stopped heparin on 10/15 AM in setting of GIB - Beta blockade not initated while here Septic Shock - - In setting of suspected TSS, cellulitis. Concern for inadequate source control despite ongoing antimicrobial therapy. See ID below. - Currently requiring two pressors - Levo and Vasopressin - to maintain MAPs in the 70s -- will be continued during transfer. Continue to monitor UOP. MAPs - maintain >65, titrate pressors as needed. - IV SoluMedrol ongoing, as below. Respiratory Ventilator-Dependent Respiratory Failure - AHRF With tachypnea and evidence of mixed respiratory/metabolic acidosis on labs - No evidence on CT to suggest pulmonary edema or infectious/inflammatory infiltrates. However, +atelectasis, +tracheomalacia, and +obesity noted. - Evening of 08/01-08/02, became more tachypneic with respiratory distress -- given concern for impending respiratory demise, patient was intubated and put on mechanical ventilation - Continue upon transfer. Mixed Respiratory and Metabolic Non-Gap Acidosis - AM VBG revealing of mixed respiratory and metabolic non-gap acidosis - Suspect component of non-anion gap metabolic acidosis is likely related to ongoing diarrhea. Chloride and K are stable, on Normosol. Lactate likely contributed to previous acidosis. GI - Hematochezia - Evening of 08/01, patient passed large, dark-maroon colored bowel movement and again in the AM of 08/02. Hgb noted to be at 12.3 from 13.7. 2U pRBC initiated given worsening tachycardia, hypotension. Repeat Hgb morning of discharge at 10.5. - In setting of presumed toxic shock syndrome / septic shock - CT-A/P revealing of R iliac and inguinal LAD, liquid stool in colon - GI urgently consulted. Unfortunately, given his hemodynamic instability and need for pressors, not a candidate for endoscopy while here. Will require aniography and embolization with IR procedures at tertiary care facility. Transfer process initiated and accepted at [facility]. - May require additional transfusions after transfer. Diarrhea: See ID below. Diet: Diabetic, heart-healthy diet RENAL/LYTES - Acute Kidney Injury - - On presentation, noted to have BUN / Cr of 33/2.40. Initially improved to 30/1.55 after fluid administration on day 1 of admission. However, no significant change on day 2. Concern for ATN in setting of toxic shock syndrome - supported with pyuria, hematuria. - Continue NormoSol 125cc/hr (s/p ~3.5L so far) while here - Continue holding home Lasix and ACEI - Sent ASO titer - Monitor BMP - - Mercado, strict I&Os ENDO - - last a1c in 02/2021 at 8.0, continue ICU hyperglycemia protocol -- transition to SQ when appropriate - Goal range 150-180mg/dL in setting of critical illness HEME - - Stable H&H. Monitor in setting of heparin gtt. ID - Suspected Toxic Shock Syndrome - Patient's presentation of possible cellulitis with worsening hemodynamics, renal injury, transaminitis, CPK, diminished protein levels, ongoing high fevers despite antimicrobial therapies are highly concerning for toxic shock syndrome - Continue ertapenem and daptomycin - Continue IV SoluMedrol - Pressor support, sepsis treatment as mentioned elsewhere Septic Shock - patient with diabetes presenting with tachycardia, elevated respiratory rate, leukocytosis, elevated lactate, high temperatures, and ALENA. Suspect this is likely secondary to RLE cellulitis. Possible contribution to diarrhea also noted. Ultrasound and CT scan are revealing for soft tissue edema without osseous involvement or presence of gas. However, given worsening clinical status, do believe that source control is not being achieved. Surgical intervention of the cellulitis to investigate the fascia, as well as culturing, will likely be required. - Await cultures - NGTD - Continue ertapenem, daptomycin - Continue mIVF - NormoSol 125cc/hr - Monitor UOP, maintain MAPs > 65 Diarrhea - - Approx 6-7 days of watery diarrhea, worsening. No recent use of ABX. No recent hospitalizations. - Etiology unclear right now - fecal WBCs negative, C. diff negative. - Careful fluid status monitoring, lyte repletion p.r.n. - Avoid use of antidiarrheals INTEGUMENTARY - Cellulitis - see sepsis management above. LINES/IV ACCESS - CVC, mercado catheter, PIVs DVT PROPHYLAXIS - - Discontinue heparin gtt in setting of GIB Thank you for allowing us to be part of this patient's care. Please refer to Dr. Parson's documentation for any further recommendations. (2) NSTEMI (non-ST elevated myocardial infarction): (3) Metabolic acidosis: (4) Cellulitis of right leg: (5) Sepsis: (6) Loose bowel movement: (7) Hip pain: (8) Vitamin D deficiency: (9) Depression: (10) Hypertension: (11) Dyslipidemia: (12) Personal history of diabetic foot ulcer: (13) Diabetes type 2, uncontrolled: (14) Morbid obesity with BMI of 50.0-59.9, adult: (15) Below-knee amputation of left lower extremity: (16) Diabetic peripheral neuropathy associated with type 2 diabetes mellitus: Admission and Anticipated Discharge Date Admission Date: July 31, 2021 Supervising Physician Co-Signing Physician Notes Patient seen and examined. EMR reviewed. Discussed on several occasions with critical care SARTHAK overnight and with family practice resident this morning. He was presented and discussed on multidisciplinary rounds as well. Over the last 24 hours the patient has had clinical deterioration requiring intubation mechanical ventilation and initiation of 2 vasopressor agents. He is also developed a GI bleed. GI was consulted and recommended referral to a tertiary center with capabilities of angiography for potential embolization. He has received packed cells. His CPK was elevated and raises the possibility of pyomyositis. I think he needs surgical evaluation of the lower extremity to ensure there is no deep-seated infection driving this process. It does not appear that we have source control currently as he remains febrile tachycardic hypotensive and and severe sepsis. [facility] been contacted and is graciously accepted the patient in transfer. Continue antibiotics for now. He will likely require work-up for his GI bleed as well as potential surgical evaluation of the lower extremities. Discussed extensively with the bedside critical care nurse as well. Subjective Please see note entered by LILLIAN Haney, for full details regarding events overnight. In summary - patient noted to become increasing tachycardic, tachypneic. Passed large maroon-colored melanotic bowel movement - blood pressure, while still normotensive, dropped by ~30-40 systolic in that time frame. Transfused 2U pRBC. Given concerns for impending respiratory demise and hemodynamic instability, patient was intubated and CVC inserted for pressor support. Urgent GI consult to see if need for scope - given hemodynamic instability, recommended immediate transfer to tertiary care facility for IR angiography/embolization. Review of Systems Review of Systems: Unobtainable due to endotracheal tube and Unobtainable due to reduced consciousness Physical Exam Physical Exam: General: 51yoM who appears ill and diaphoretic, mechnically ventilated. HEENT: NCAT. Eyes - Sclera are white, anicteric, and without injection. Mouth - MMM with no tonsillar edema or exudates. Cardiac: Tachycardic with regular rhythm; S1 and S2 present with no murmurs, rubs, or gallops. Pulmonary: Increased respiratory rate with mild increase in respiratory effort. No use of accessory muscles. Lungs were clear to auscultation bilaterally with no crackles or wheezes. Abdominal: Normoactive bowel sounds. Abdomen was soft, nondistended, and non- tender to palpation. Extremities: Upper and lower extremities are warm and well perfused. BKA noted on LEFT side. Visual exam of the RLE does demonstrate venous stasis changes surrounded by blanchable erythema. There is 1-2+ pitting edema. Capillary refill < 3 seconds. Results & Data Results & Data ([facility]) Vital Signs (Past 12 Hours) Vital Signs Temp Pulse Resp BP Pulse Ox 08/02/21 06:00 37.8 C H 101 H 28 H 99/70 L 95 08/02/21 05:15 108 H 25 H 96 08/02/21 04:26 119 H 24 96 08/02/21 04:00 38.9 C H 114 H 32 H 95/65 L 95 08/02/21 02:59 38.7 C H 127 H 18 97/44 L 93 08/02/21 02:50 39.1 C H 130 H 18 114/69 93 08/02/21 02:43 39.1 C H 129 H 18 104/22 L 93 08/02/21 01:45 126 H 24 99 08/02/21 01:30 135 H 24 95 08/02/21 01:15 134 H 21 98 08/02/21 01:00 138 H 26 H 100 08/02/21 00:45 146 H 34 H 96 08/02/21 00:30 39.1 C H 143 H 54 H 97 08/02/21 00:15 147 H 24 08/02/21 00:00 139 H 14 76 L 08/01/21 23:45 142 H 33 H 97 08/01/21 23:30 135 H 28 H 98 08/01/21 23:23 133 H 32 H 96 08/01/21 23:00 125 H 26 H 95 08/01/21 22:30 33 H 99 08/01/21 22:00 124 H 24 98 08/01/21 21:30 122 H 28 H 99 08/01/21 21:00 39.6 C H 120 H 30 H 98 08/01/21 20:32 119 H 30 H 95 08/01/21 20:00 120 H 28 H 97 08/01/21 19:00 119 H 29 H 97 08/01/21 18:49 39.3 C H Resident Activity Tracking Resident Involvement: Resident Care Provided Care Provided: Adult Hospital Medicine
[2021-08-02 07:10] LABS: Estimated Average Glucose 197 mg/dl; Hemoglobin A1C 8.5 % (4.5-5.6)
--- NOTE | 2021-08-02 07:16 | Discharge Summary ---
Date of Service August 02, 2021 Admission HPI Per Admitting Provider The patient is a 51-year-old male with a past medical history including vitamin D deficiency, depression, hypertension, hyperlipidemia, diabetic foot ulcer, uncontrolled diabetes mellitus type 2 on insulin, morbid obesity, metabolic syndrome, diabetic peripheral neuropathy, dysesthesias, and status post left BKA. Patient presents with symptoms as noted above. The patient was hypoxic upon presentation to the emergency department, and was placed on BiPAP by the ED physician. Temperature upon arrival was 102.7 F Chest x-ray revealed a combination of pulmonary edema and pneumonia. Abnormal laboratories: WBC 31.17, sodium 127, creatinine 2.40, glucose 312, lactate 5.0, magnesium 1.2, total bilirubin 1.4, troponin 18.6, AST 131. Virus panel was negative. The patient was placed on daptomycin IV, ertapenem IV, dexamethasone 10 mg IV and a DuoNeb by the ED. Upon hospitalist assessment, patient was determined to require an ICU admission, due to pulmonary edema, pneumonia, right lower extremity cellulitis, sepsis and NSTEMI. Admission Exam Per Admitting Provider The patient is awake, alert and oriented 3, on BiPAP, with paradoxical breathing, normocephalic and atraumatic, lying in bed and in moderate respiratory distress. HEENT--PERRL, EOMI, mucous membranes and oropharynx normal Neck--supple. No JVD. No bruits. Thyroid normal, trachea midline, no adenopathy. Heart--normal S1 and S2. No murmurs, rubs or gallops. Lungs--coarse breath sounds bilaterally. Moderate no respiratory distress with accessory muscle use. Abdomen--normal bowel sounds and soft. Nontender. Morbidly obese Extremities--left BKA normal. Right lower extremity moderately severe erythema, 1+ pitting edema, with warmth Dermatologic--see above Neurologic--cranial nerves II through XII grossly intact. Rheumatologic--limited exam Psychiatric--normal affect. Principal Diagnosis presumed toxic shock syndrome RLE cellulitis septic shock Discharge Data Allergies Allergy/AdvReac Type Severity Reaction Status Date / Time clindamycin Allergy Intermediate Hives Verified 07/31/21 20:35 cefepime Allergy Mild RASH-POSSIBLY Verified 07/31/21 20:35 DUE TO CEFEPIME vancomycin AdvReac Intermediate KYE Verified 07/31/21 20:35 SYNDROME piperacillin [From Zosyn] AdvReac Mild skin rash, Verified 07/31/21 20:35 itching, mild tazobactam [From Zosyn] AdvReac Mild skin rash, Verified 07/31/21 20:35 itching, mild Consultations 07/31/21 20:33 ED Decision to Admit Stat 07/31/21 23:06 Consult Personal Banker Routine 08/01/21 23:54 Consult Gastroenterology Stat Ordered Studies CT tib/fib RT wo con (07/31) INDICATION: MN ^Osteomyelitis? TECHNIQUE: Multidetector row helical CT of the right tibia and fibula was performed without intravenous contrast. Coronal and sagittal reformations were obtained. Automated dose lowering techniques and/or adjustment according to patient size were utilized for this examination. Comparison: None available at the time of this dictation. FINDINGS: The osseous structures are without fracture or dislocation. No focal lucencies are seen to suggest osteomyelitis. Diffuse soft tissue swelling is seen compatible with cellulitis. Mild narrowing of the joint spaces knee noted. IMPRESSION: Soft tissue swelling compatible with cellulitis without evidence of bony erosion to suggest osteomyelitis. --- CT foot RT wo con (07/31) INDICATION: MN ^Osteomyelitis TECHNIQUE: Multidetector row helical CT of the right foot was performed without intravenous contrast. Coronal and sagittal reformations were obtained. Automated dose lowering techniques and/or adjustment according to patient size were utilized for this examination. Comparison: None available at the time of this dictation. FINDINGS: There is an acute to subacute nondisplaced fracture of the first digit proximal phalanx extending to the first metacarpophalangeal joint. No evidence of focal erosion seen to suggest osteomyelitis. Soft tissue swelling is seen most prominent in the dorsal surface of the foot, compatible with cellulitis. IMPRESSION: 1. Cellulitis without evidence of osteomyelitis. 2. Acute to subacute intra-articular fracture of the first digit proximal phalanx. --- CT chest diagnostic wo con (07/31) INDICATION: MN ^Pulm infiltrates. TECHNIQUE: Multidetector row helical CT of the chest was performed. Coronal and sagittal reformations were obtained. Automated dose lowering techniques and/or adjustment according to patient size were utilized for this exam. Comparison: None available at the time of this dictation. FINDINGS: Lungs and pleura: Atelectasis versus scarring is seen in the dependent portions of the lungs. Heart and pericardium: Heart size is normal. No pericardial effusion. Vessels: Moderate atherosclerotic changes in the aorta and coronary arteries. Mediastinum and twin: Unremarkable. Chest wall and lower neck: Unremarkable. Abdomen: Hepatic steatosis is seen. Multiple splenules are seen. Patient is status post cholecystectomy. There is a small hiatal hernia. Bones: Degenerative changes in the thoracic spine. IMPRESSION: No evidence of pneumonia. Bilateral atelectasis versus scarring is seen. Additional findings as above. Hospital Course (1) ALENA (acute kidney injury): Reason Critically Ill: Wyatt is a 51-year-old male with a notable history of type 2 diabetes complicated by polyneuropathy, previous diabetic ulcers, and below-knee amputation on the left side; obesity, hypertension, hyperlipidemia, history of DVT on Eliquis who presented to [facility] with a chief complaint of right lower extremity pain, warmth, fevers, chills, and night sweats. On his arrival, he was found to have evidence of cellulitis involving the right lower extremity and severe sepsis. Troponins were also significantly elevated to 18, without chest pain, and he was started on a heparin drip. He was placed empirically on linezolid and ertapenem given his allergies to clindamycin (hives), cefepime (?rash), vancomycin (Kye syndrome), Zosyn (skin rash, itching - ?mild). Unfortunately, throughout his stay, he continued to clinically deteriorate and develop tachypnea, worsening tachycardia, renal function, elevated CPK. On 08/01 at 2330, he passed several large, melanotic stools. He required emergent intubation and initiation of pressors alongside 2U pRBC. GI consultation was obtained for urgent scope, but - unfortunately - give his hemodynamic instability, was not deemed a suitable candidate. He requires transfer to a tertiary care facility for urgent IR embolization and further management of his presumed toxic shock syndrome. Neuro - [facility] ICU: Negative. Depression - hold Doxepin, Prozac, and Effexor in setting of previous Linezolid use Diabetic Neuropathy - continue gabapentin Cardiac - Elevated Troponin - In setting of sepsis - No chest pain or ECG changes x 3 - In setting of significant vascular disease, metabolic syndrome, and previous imaging demonstrating coronary artery calcifications, possible this represents significant demand ischemia vs. NSTEMI - TTE: normal biventricular function (LVEF 60-65), mild cLVH, no valvular abnormalities. - Trop downtrending -- peaked at 1800 on 07/31, around 18.6 - Start ASA 81. Continue statin. - Stopped heparin on 08/02 AM in setting of GIB - Beta blockade not initated while here Tachycardia Suspect compensatory in setting of presumed toxic shock syndrome, septic shock, and GIB. Respiratory Ventilator-Dependent Respiratory Failure - AHRF With tachypnea and evidence of mixed respiratory/metabolic acidosis on la bs - No evidence on CT to suggest pulmonary edema or infectious/inflammatory infiltrates. However, +atelectasis, +tracheomalacia, and +obesity noted. - Evening of 08/01-08/02, became more tachypneic with respiratory distress -- given concern for impending respiratory demise, patient was intubated and put on mechanical ventilation Mixed Respiratory and Metabolic Non-Gap Acidosis - AM VBG revealing of mixed respiratory and metabolic non-gap acidosis - Suspect component of non-anion gap metabolic acidosis is likely related to ongoing diarrhea. Chloride and K are stable, on Normosol. Lactate likely contributed to previous acidosis. GI - Hematochezia - Evening of 08/01, patient passed large, dark-maroon colored bowel movement and again in the AM of 08/02. Hgb noted to be at 12.3 from 13.7. 2U pRBC initiated given worsening tachycardia, hypotension. Repeat Hgb morning of discharge at 10.5. Diarrhea / Melanotic Stools: See ID below. Continue IVF, monitor lytes and replete p.r.n. Diet: Diabetic, heart-healthy diet RENAL/LYTES - Acute Kidney Injury - - On presentation, noted to have BUN / Cr of 33/2.40. Thankfully, this has improved this morning - 30/1.55 after fluid administration. Possible this is pre renal in setting of sepsis -- however, ATN cannot be excluded. Would probably be too soon for post-infectious glomerulonephritis given recency of illness, but also on differential - Continue NormoSol 125cc/hr (s/p ~3.5L so far) - Continue holding home Lasix and ACEI - Sent ASO titer - Monitor BMP - - Jauregui, strict I&Os ENDO - - last a1c in 02/2021 at 8.0, continue ICU hyperglycemia protocol -- transition to SQ when appropriate - Goal range 150-180mg/dL in setting of critical illness HEME - - Stable H&H. Monitor in setting of heparin gtt. ID - Severe Sepsis - patient with diabetes presenting with tachycardia, elevated respiratory rate, leukocytosis, elevated lactate, high temperatures, and ALENA. Suspect this is likely secondary to RLE cellulitis. Possible contribution to diarrhea also noted. Ultrasound and CT scan are revealing for soft tissue edema without osseous involvement or presence of gas. At this time, believe it is suitable to continue her parental antibiotics as mainstay of management - no surgical intervention warranted at this time. - Lower suspicion for toxic shock syndrome at this time, but given his cellulitis, it is considered - criteria not met as of present. Continue antimicrobials and fluid resuscitation. - Await cultures - Continue ertapenem - Transition to daptomycin -- MRSA nares negative, low suspicion for pulmonic infection given CT, lower risk of serotonin syndrome - Continue mIVF - NormoSol 125cc/hr - Monitor UOP, maintain MAPs > 65 Diarrhea - - Approx 6-7 days of watery diarrhea, worsening. No recent use of ABX. No recent hospitalizations. - Etiology unclear right now - will send for C. diff and fecal leukocytes - Careful fluid status monitoring, lyte repletion p.r.n. - Avoid use of antidiarrheals INTEGUMENTARY - Cellulitis - see sepsis management above. LINES/IV ACCESS - PIVs intact. DVT PROPHYLAXIS - - Heparin gtt in setting of ?NSTEMI vs. demand ischemia Thank you for allowing us to be part of this patient's care. Please refer to Dr. Parson's documentation for any further recommendations. (2) NSTEMI (non-ST elevated myocardial infarction): (3) Metabolic acidosis: (4) Cellulitis of right leg: (5) Sepsis: (6) Loose bowel movement: (7) Hip pain: (8) Vitamin D deficiency: (9) Depression: (10) Hypertension: (11) Dyslipidemia: (12) Personal history of diabetic foot ulcer: (13) Diabetes type 2, uncontrolled: (14) Morbid obesity with BMI of 50.0-59.9, adult: (15) Below-knee amputation of left lower extremity: (16) Diabetic peripheral neuropathy associated with type 2 diabetes mellitus: Discharge Plan Discharge Items Reason For Visit: ACUTE RESP FAILURE WITH HYPOXIA, CHF, PNEUMONIA, R Follow-up/Referrals: Pro,Mike Alarcon MD [Primary Care Provider] - Medications and DC Order Prescriptions: No Action (DME) pen needle, diabetic [Comfort EZ Pen [place]] 29 gauge x 1/2" needle See Rx Instructions .ROUTE .MEDSUPPLY Qty: 100 RF: 5 (DME) cane Device See Rx Instructions .ROUTE .MEDSUPPLY Qty: 1 RF: 0 fluoxetine 20 mg capsule 60 mg PO DAILY Qty: 270 RF: 3 cholecalciferol (vitamin D3) [Vitamin D3] 125 mcg (5,000 unit) tablet 5,000 unit PO DAILY Qty: 90 RF: 3 insulin asp prt-insulin aspart [Novolog Mix 70-30FlexPen U-100] 100 unit/mL (70-30) insulin pen 60 - 100 unit subcut TID Qty: 75 RF: 5 gabapentin 600 mg tablet 600 mg PO DAILY Qty: 90 RF: 3 lisinopril 2.5 mg tablet 2.5 mg PO DAILY Qty: 90 RF: 3 venlafaxine [Effexor XR] 75 mg capsule,extended release 24hr 75 mg PO DAILY Qty: 90 RF: 3 furosemide [Lasix] 40 mg tablet 40 mg PO BID Qty: 180 RF: 2 (DME) Dexcom G6 Yoke Setter Misc See Rx Instructions .Route Qty: 1 RF: 0 (DME) Dexcom G6 Sensor Device See Rx Instructions .Route Qty: 3 RF: 11 (DME) Dexcom G6 Transmitter Device See Rx Instructions .Route Qty: 1 RF: 3 cetirizine 10 mg tablet 10 mg PO DAILY Qty: 90 RF: 3 doxepin 10 mg capsule 10 mg PO DAILY Qty: 30 RF: 2 hydroxyzine HCl 25 mg tablet 25 mg PO DAILY PRN (Reason: itching) Qty: 30 RF: 3 rivaroxaban 20 mg tablet 20 mg PO QAM Qty: 90 RF: 1 Wegovy 1.7 mg/0.75 mL pen injector 1.7 mg subcut Q7D Qty: 3 RF: 5 topiramate 25 mg tablet 25 mg PO HS Qty: 60 RF: 0 Ozempic 1 mg/dose (2 mg/1.5 mL) pen injector 1 mg SQ WEEKLY Qty: 3 RF: 0 (DME) OneTouch Ultra Blue Test Strip Strip See Rx Instructions .ROUTE .MEDSUPPLY Qty: 100 RF: 5 albuterol sulfate [Ventolin HFA] 90 mcg/actuation HFA aerosol inhaler 2 puff INHALATION Q6H PRN (Reason: Shortness Of Breath Or Wheezing) Qty: 18 RF: 3 rosuvastatin 5 mg tablet 5 mg PO DAILY Qty: 90 RF: 3 Admission Data Admit Date/Time: 07/31/21 22:04 Attending Provider: Aroldo Leon Admit Provider: Shahbaz Andrade Primary Care Provider: Mike Isidro. Other Providers: Shahbaz Andrade ; Rafy Parson ; Sean Hernandez
--- NOTE | 2021-08-02 07:17 | XRay Report ---
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 Right IJ central venous cathet er is present with distal tip in the expected location of the mid SVC. The cardiac silhouette is enla rged. Hypoinflation. No pneumothorax. Pulmonary vascular congestion with chronic interstitial coarsen ing. Unchanged blunting of the costophrenic angles. Degenerative changes of the shoulders and spine. IMPRESSION: 1. Lines and tubes as above. 2. Cardiomegaly with pulmonary vascular congestion. ACT 112: Negative or not required by law. The above report was generated using voice recognition software. It may contain grammatical, syntax o r spelling errors. Electronically signed by: Jamey Dent M.D. 08/02/2021 7:15 AM
--- NOTE | 2021-08-02 07:46 | XRay Report ---
SINGLE VIEW CHEST CLINICAL HISTORY: Respiratory failure. Intubation. FINDINGS: An AP, portable, supine chest radiograph is compared to chest x-ray and chest CT dated 07/19. The right costophrenic sulcus is collimated from view. An endotracheal tube has been placed. The tip projects approximately 3 cm above the mandy. The heart is enlarged. There is pulmonary vascu lar congestion. Atelectasis is present at both lung bases. No airspace consolidation typical for pneu monia or large pleural effusion is identified. No pneumothorax is seen. The bony thorax is grossly in tact. IMPRESSION: 1. An endotracheal tube has been placed as above. 2. Cardiomegaly with pulmonary vascular congestion. ACT 112: Negative or not required by law. Electronically signed by: Damon Soliz M.D. 08/02/2021 7:45 AM
[2021-08-02] MEDS: INSULIN ASPART 100 UNITS/ML 3 ML PEN SC SCH (07:51)
--- NOTE | 2021-08-02 07:57 | Gastrointestinal Consultation ---
Date of Consultation August 02, 2021 Assessment & Plan (1) Lower GI bleeding: lower GI bleeding in the setting of sepsis, severe obesity and HD instability. CT imaging unrevealing. Recs: --recommend immediate transfer to a tertiary care facility for IR angiography and embolization as he is HD unstable --protonix 40 mg IV BID --IVFs, supportive care --trend H/H, transfuse prn Thank you for allowing me to participate in the care of this patient History of Present Illness Attending Physician: Aroldo Leon DO History of Present Illness 51 yo male here with sepsis, cellulitis, CAD, on heparin while inpatient and developed acute hematochezia with blood clots. Patients heparin was stopped, noted to be tachycardic and HD instable. Hgb 10.5 from 13.7 24 hours ago. Of note, he is morbidly obese with BMI 54. He was electively intubated and placed on pressors overnight. CT A/P without contrast unrevealing. Bleeding scan has not been done at this time. labs reviewed, HD unstable. Allergies Allergy/AdvReac Type Severity Reaction Status Date / Time clindamycin Allergy Intermediate Hives Verified 07/31/21 20:35 cefepime Allergy Mild RASH-POSSIBLY Verified 07/31/21 20:35 DUE TO CEFEPIME vancomycin AdvReac Intermediate KYE Verified 07/31/21 20:35 SYNDROME piperacillin [From Zosyn] AdvReac Mild skin rash, Verified 07/31/21 20:35 itching, mild tazobactam [From Zosyn] AdvReac Mild skin rash, Verified 07/31/21 20:35 itching, mild Home Medications Medication Instructions Recorded Confirmed Type pen needle, diabetic 29 gauge x #100 ea 03/14/20 07/31/21 Rx 1/2" (Comfort EZ Pen [place]) semaglutide 1 mg/dose (2 mg/1.5 1 mg SQ WEEKLY #3 ml 03/19/20 07/31/21 Rx mL) subcutaneous pen injector (Ozempic) cane #1 ea 08/03/20 07/31/21 Rx blood sugar diagnostic (OneTouch #100 ea 09/05/20 07/31/21 Rx Ultra Blue Test Strip) fluoxetine 20 mg capsule 60 mg PO DAILY #270 cap 12/06/20 07/31/21 Rx cholecalciferol (vitamin D3) 125 5,000 unit PO DAILY #90 tab 01/14/21 07/31/21 Rx mcg (5,000 unit) tablet (Vitamin D3) insulin aspar prot-insulin aspart 60 - 100 unit SUBCUT TID #75 ml 01/14/21 07/31/21 Rx 100 unit/mL (70-30) subcutaneous pen (Novolog Mix 70-30FlexPen U-100) albuterol sulfate 90 mcg/actuation 2 puff INHALATION Q6H PRN #18 gm 03/12/21 07/31/21 Rx aerosol inhaler (Ventolin HFA) gabapentin 600 mg tablet 600 mg PO DAILY #90 tab 03/26/21 07/31/21 Rx lisinopril 2.5 mg tablet 2.5 mg PO DAILY #90 tab 03/26/21 07/31/21 Rx venlafaxine 75 mg capsule,extended 75 mg PO DAILY #90 cap 03/26/21 07/31/21 Rx release 24 hr (Effexor XR) furosemide 40 mg tablet (Lasix) 40 mg PO BID #180 tab 04/25/21 07/31/21 Rx rosuvastatin 5 mg tablet 5 mg PO DAILY #90 tab 04/30/21 07/31/21 Rx Dexcom G6 Pocket Closer (blood-glucose #1 ea NS 07/16/21 07/31/21 Rx meter,continuous) Dexcom G6 Sensor (blood-glucose #3 ea NS 07/16/21 07/31/21 Rx sensor) Dexcom G6 Transmitter #1 ea NS 07/16/21 07/31/21 Rx (blood-glucose transmitter) cetirizine 10 mg tablet 10 mg PO DAILY #90 tab 07/25/21 07/31/21 Rx doxepin 10 mg capsule 10 mg PO DAILY #30 cap 07/25/21 07/31/21 Rx hydroxyzine HCl 25 mg tablet 25 mg PO DAILY PRN #30 tab 07/25/21 07/31/21 Rx rivaroxaban 20 mg tablet 20 mg PO QAM #90 tab 07/26/21 07/31/21 Rx semaglutide (weight loss) 1.7 1.7 mg SUBCUT Q7D #3 ml 07/26/21 07/31/21 Rx mg/0.75 mL subcutaneous pen injector ([place]) topiramate 25 mg tablet 25 mg PO HS #60 tab 07/31/21 07/31/21 Rx Patient History Medical History Depression Diabetes type 2, uncontrolled Diabetic peripheral neuropathy associated with type 2 diabetes mellitus DVT (deep venous thrombosis) (08/16/13) Dysesthesia Dyslipidemia Hypertension Personal history of diabetic foot ulcer Vitamin D deficiency Surgical History S/P hernia repair S/P PICC central line placement with removal S/P rotator cuff repair Family History Aunt No problems noted. Grandmother (Maternal) Throat cancer Myocardial infarction Grandfather (Maternal) Myocardial infarction Other Coronary heart disease Diabetes No pertinent family history Denies family history of Ovarian cancer Prostate cancer Breast cancer Colorectal cancer Social History Smoking Status: Never smoker Tobacco Type: Cigarettes Hx Alcohol Use: No Hx Substance Use: No Preferred Language: Omani Communication Ability: Unable Beliefs That Will Affect Care: None marital status: Current Living Situation: Spouse current occupational status: disabled How many Children do You have: 2 Feels Safe at Home: Yes Safety Concerns: Feels Safe At This Time Physical Activity Frequency: Does not Exercise Seatbelt Use: always Sunscreen Use: Yes Assistive Devices: Walker and Wheelchair Review of Systems Constitutional: no fever, no chills and no weight loss Eyes: as per Subjective / HPI Ear, Nose, Mouth, Throat: as per Subjective / HPI Respiratory: no dyspnea and no dyspnea on exertion Cardiovascular: no chest pain and no palpitations Gastrointestinal: as per Subjective / HPI Musculoskeletal: no joint pain and no swelling Integumentary: no rash and no lesions Neurologic: no numbness and no paresthesia Psychiatric: no depression and no anxiety Endocrine: no fatigue Hematologic / Lymphatic: no easy bleeding and no easy bruising Physical Exam Constitutional: WD/WN, vitals as above Eyes: EOM intact bilaterally Neck: normal visual inspection Respiratory: normal respiratory effort, lungs clear to auscultation Cardiovascular: Rate/Rhythm: regular rhythm and + tachycardic Heart Sounds: no murmur no edema, no murmur Gastrointestinal (Abdomen): Inspection/Auscultation: abdomen normal to inspection; abdomen not distended Percussion/Palpation: abdomen soft; abdomen nontender and no hepatosplenomegaly Musculoskeletal: Extremities: no cyanosis Gait: normal gait Skin: no rashes, warm and dry Neurologic: moves all extremities Psychiatric: A+Ox3, euthymic affect Results & Data ([facility]) Vital Signs (Past 12 Hours) Vital Signs Temp Pulse Resp BP Pulse Ox 08/02/21 06:00 37.5 C 101 H 15 99/70 L 97 08/02/21 05:15 108 H 25 H 96 08/02/21 05:00 37.9 C H 112 H 20 96 08/02/21 04:28 119 H 17 08/02/21 04:26 119 H 24 96 08/02/21 04:00 38.9 C H 114 H 32 H 95/65 L 95 08/02/21 03:00 131 H 19 93 08/02/21 02:59 38.7 C H 127 H 18 97/44 L 93 08/02/21 02:50 39.1 C H 130 H 18 114/69 93 08/02/21 02:43 39.1 C H 129 H 18 104/22 L 93 08/02/21 02:00 127 H 21 95 08/02/21 01:45 126 H 24 99 08/02/21 01:30 135 H 24 95 08/02/21 01:15 134 H 21 98 08/02/21 01:00 138 H 26 H 100 08/02/21 00:45 146 H 34 H 96 08/02/21 00:30 39.1 C H 143 H 54 H 97 08/02/21 00:15 147 H 24 08/02/21 00:00 139 H 14 76 L 08/01/21 23:45 142 H 33 H 97 08/01/21 23:30 135 H 28 H 98 08/01/21 23:23 133 H 32 H 96 08/01/21 23:00 125 H 26 H 95 08/01/21 22:30 33 H 99 08/01/21 22:00 124 H 24 98 08/01/21 21:30 122 H 28 H 99 08/01/21 21:00 39.6 C H 120 H 30 H 98 08/01/21 20:32 119 H 30 H 95 08/01/21 20:00 120 H 28 H 97 PG Care Time/CCT Total # of Minutes Spent Total Time Spent with Patient: Total time spent is greater than 50% in coordination of care (as documented) at patient's floor/unit and/or counseling patient: Coding Level of Care Code 20907 Inpt Consult Level 4 Diagnoses Lower GI bleeding K92.2
--- NOTE | 2021-08-02 08:21 | CT Scan Report ---
CT SCAN OF THE ABDOMEN AND PELVIS WITHOUT IV CONTRAST CLINICAL HISTORY: GI bleeding. COMPARISON STUDY: Abdominal CT dated 05/13/2016. TECHNIQUE: CT scan of the abdomen and pelvis is performed from the lung bases to the proximal femora. Images are reviewed in the axial, sagittal, and coronal planes. IV contrast was not administered for this examination. Note that the examination was performed in significantly suboptimal fashion withou t oral and IV contrast. The examination is also significantly degraded by large body habitus, and by streak artifact from the body wall abutting the CT gantry. There is also motion artifact. A dose lowe ring technique was utilized adhering to the principles of ALARA. CT DOSE: 2519.34 mGy.cm FINDINGS: Lung bases: The heart is normal in size and without pericardial effusion. There are trace pleural eff usions with bibasilar consolidation. There is a small hiatal hernia. Liver: The unenhanced liver is enlarged, measuring 19.4 cm in length. The liver demonstrates diffusel y diminished attenuation consistent with severe hepatic steatosis. There is no intrahepatic biliary d uctal dilatation. Gallbladder: Surgically absent noting clips in the gallbladder fossa. Spleen: Normal in size and attenuation. Pancreas: The unenhanced pancreas is mildly atrophic and grossly unremarkable. Adrenal glands: Unremarkable. Kidneys: The unenhanced kidneys demonstrate cortical atrophy and are without hydronephrosis. 2 nonobs tructing left renal calculi measure up to 12 mm. A 9 mm nonobstructing calculus is noted in the right kidney. There is no evidence of contour deforming renal mass lesion. Abdominal vasculature: The abdominal aorta is normal in course and caliber noting mild to moderate at herosclerotic calcification. Bowel: There is mild colonic diverticulosis without CT evidence of acute diverticulitis. No bowel obs truction is seen. The appendix is well-visualized and normal. Liquid stool seen throughout the colon . Peritoneum: There is no intraperitoneal free air or abdominal ascites. Lymphadenopathy: There is bulky right inguinal lymphadenopathy. The largest node is seen on image #[id number] and measures 3.6 x 2.6 cm. There is mild surrounding infiltration. No left inguinal adenopathy is i dentified. There is also right iliac chain lymphadenopathy. A right external iliac chain node on imag e #415 measures 3.0 x 2.1 cm. There is no upper abdominal, mesenteric, or retroperitoneal adenopathy. Pelvic viscera: The bladder is decompressed around a Jauregui catheter and cannot be evaluated. Intralum inal gas is likely related to instrumentation. The prostate gland is diminutive and heterogeneous. Skeletal structures: There is mild lumbosacral spondylosis. No lytic or blastic lesions are seen. IMPRESSION: 1. Significantly suboptimal examination without oral and IV contrast. The Examination is also comprom ised by streak and motion artifact. 2. There is nonspecific right iliac chain and inguinal lymphadenopathy. This may be reactive. A neopl astic etiology is not excluded and clinical correlation will be essential. 3. Liquid stool seen throughout the colon. Correlate clinically for evidence of a diarrheal illness. 4. Bilateral nephrolithiasis. 5. No bowel obstruction. 6. Mild colonic diverticulosis without CT evidence of acute diverticulitis. 7. Trace pleural effusions with bibasilar consolidation. This likely represents atelectasis and clini zee correlation will be required. 8. Hepatomegaly and hepatic steatosis. 9. Additional findings as above. ACT 112: Negative or not required by law. Electronically signed by: Damon Soliz M.D. 08/02/2021 8:20 AM
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
[2021-08-02] MEDS: INSULIN REGULAR 250 UNITS in SODIUM CHLORIDE 0.9% 247.5 ML IV SCH (09:09)
[2021-08-02] MEDS ORDERED: HYDROCORTISONE SOD 50 MG in SYRINGE 0 ML IV SCH ×2 (09:33→14:00)
[2021-08-02] MEDS ORDERED: Nursing to Pharmacy Communication SCH (09:45)
--- NOTE | 2021-08-02 10:36 | Billing Data ---
Date of Service August 02, 2021 Coding Level of Care Code Critical Care 1st 30-74 mins Time Spent (min) 40 Comment 40 minutes critical care time managing life-threatening illness
--- NOTE | 2021-08-02 15:52 | Electrocardiogram Report ---
Test Reason : Blood Pressure : / mmHG Vent. Rate : 130 BPM Atrial Rate : 130 BPM P-R Int : 168 ms QRS Dur : 096 ms QT Int : 300 ms P-R-T Axes : 053 107 008 degrees QTc Int : 441 ms Poor data quality, interpretation may be adversely affected Sinus tachycardia Incomplete right bundle branch block Cannot rule out Inferior infarct , age undetermined Abnormal ECG When compared with ECG of 01-AUG-2021 05:24, No significant change was found Confirmed by Mike Ruiz ([id number]) on 08/02/2021 3:52:27 PM Referred By: REFERRED SELF Confirmed By:Mike Ruiz
== END 2021-08-02 10:12 | disposition short-term general hospital (02) | DRG 867 ==
LOC: ED 18:17 → 1E 22:04 → SUATTDRO 22:04 → 1E 23:00

== ENCOUNTER 2021-08-16 12:22 | Inpatient (IN) ==
[2021-08-16] MEDS ORDERED: ACETAMINOPHEN 1,000 MG/100 ML VIAL IV STA (16:02)
[2021-08-16] MEDS ORDERED: MoRPHine SULFATE 4 MG/ML 1 ML CARP\\VIAL IV STA (16:02)
[2021-08-16] MEDS ORDERED: SODIUM CHLORIDE 0.9% 500 ML IV ONE (16:02)
--- NOTE | 2021-08-16 16:08 | Emergency Department Note ---
Impression & Plan Cellulitis of right leg, Elevated troponin, Anemia ED Provider Note NAME: PHILIPP WILLAMS AGE: 51 SEX: M ARRIVES VIA: Ambulance INFORMANT: Patient, ED PROVIDER(S): Get Trejo MD CHIEF COMPLAINT: Right leg cellulitis, pain, malaise PLAN: Disposition: Admit MEDICAL DECISION MAKING: The patient is a pleasant 51-year-old gentleman with a past medical history of type 2 diabetes, history of DVT on Xarelto, Hypertension, hyperlipidemia, depression, diabetic foot ulcer status post left BKA, morbid obesity, metabolic syndrome, diabetic peripheral neuropathy, dysesthesias who presents to the emergency department for evaluation of right leg pain/cellulitis and malaise. He presents in the setting of recent complicated medical course where he was admitted to [facility] on 07/31 but transferred to [facility] on 08/02 for worsening condition related to sepsis, NSTEMI, GIB 2/2 duodenal ulcer, and was discharged on 08/13 after which he reports he completed 3 days of oral antibiotics with linezolid where he was treated at [facility] for cellulitis with vancomycin prior to that. He reports having worsening pain in his right leg after having brief improvement and also reports feeling generalized malaise nausea as well as his report of new loose stool. He reports feeling feverish but denies objective fevers. He denies cough, congestion, chest pain. He repeats numerous times that he "just does not feel well" and that "he is really sick". On arrival the patient is fatigued/uncomfortable appearing but no acute distress, afebrile with stable vital signs. He has 2+ edema of the right lower leg with erythema and warmth centered mostly on the mid right lower leg and right plantar surface of the hind and midfoot. PMS intact. EKG without overt acute ischemia. CXR with slight increase in congestion from previous. WBC wnl. H/H approximate to discharge from [facility] several days ago with hbg 9.0. Platelets 430K, nonspecific. ESR 48 without recent for comparison. CRP 6.2 downtrending from a high of 22 on last admission. Chemistry without acidosis. Lactic acid 1.3, wnl. Electrolytes unremarkable. LFTs without significant abnormality. Troponin 0.065 down from high of 18.6 on last admission. Procalcitonin is not elevated. UA without convincing evidence of infection with epithelial cells present. Covid-19 PCR negative. Given the patient's recent complicated medical course, reasonable to admit for further management given he regression in his clinical improvement and return of his cellulitis/pain. The patient was treated empirically with Cefepime and Vancomycin as his [facility] summary documented that he did tolerate these during his admission Prior medical records reviewed Vital Signs: reviewed and remarkable for no significant abnormalities Differential diagnosis: Sepsis, UTI, pneumonia, metabolic, electrolyte abnormalities, cardiac sources, intracerebral event, toxicologic, neurologic, as well as other pathologies. ER treatment provided: See below. Diagnostics interpreted by me: ECG: NSR, 82 bpm, no ectopy, ST and TWA more pronounced but similar to prior. No overt ST elevation. Cardiac Monitoring: An order for continuous cardiac monitoring was placed and demonstrated NSR, 82 bpm, no ectopy. Laboratory studies: See below Imaging studies: See below Consultation(s): Case was discussed with Dr. Andrade, [facility] hospitalist, who will evaluate the patient for admission. HPI: The patient is a pleasant 51-year-old gentleman with a past medical history of type 2 diabetes, history of DVT on Xarelto, Hypertension, hyperlipidemia, depression, diabetic foot ulcer status post left BKA, morbid obesity, metabolic syndrome, diabetic peripheral neuropathy, dysesthesias who presents to the emergency department for evaluation of right leg pain/cellulitis and malaise. He presents in the setting of recent complicated medical course where he was admitted to [facility] on 07/31 but transferred to [facility] on 08/02 for worsening condition related to sepsis, NSTEMI, GIB 2/2 duodenal ulcer, and was discharged on 08/13 after which he reports he completed 3 days of oral antibiotics with linezolid where he was treated at [facility] for cellulitis with vancomycin prior to that. He reports having worsening pain in his right leg after having brief improvement and also reports feeling generalized malaise nausea as well as his report of new loose stool. He reports feeling feverish but denies objective fevers. He denies cough, congestion, chest pain. He repeats numerous times that he "just does not feel well" and that "he is really sick". ROS: See above HPI for pertinent positives & negatives. A total of 10 systems reviewed and were otherwise negative. PAST MEDICAL HISTORY:See Below PAST SURGICAL HISTORY:See Below FAMILY HISTORY:See Below SOCIAL HISTORY:See Below HOME MEDICATIONS:See Below ALLERGIES:See Below VITALS:See Below PHYSICAL EXAMINATION: GENERAL: Awake, alert, uncomfortable-appearing, in no distress HENT: Normocephalic, atraumatic. Oropharynx unremarkable. EYES: Normal conjunctiva. Sclera non-icteric. NECK: Supple. No nuchal rigidity. FROM. No JVD. RESPIRATORY: Clear to auscultation. CARDIAC: Regular rate, normal rhythm. Extremities warm and well perfused. Pulses equal. ABDOMEN: Soft, non-distended. No tenderness to palpation. No rebound or guarding. No masses. RECTAL: Deferred. MUSCULOSKELETAL: Chest examination reveals no tenderness. The back is symmetrical on inspection without obvious abnormality. There is no CVA tenderness to palpation. No joint edema. LOWER EXTREMITIES: 2+ edema of the right lower leg with erythema and warmth centered mostly on the mid right lower leg and right plantar surface of the hind and midfoot. LLE BKA. NEURO: Normal sensorium. No sensory or motor deficits noted. SKIN: No jaundice noted. ED COURSE: Critical Care: I have personally spent greater than 35 minutes of critical care time in the direct management of this patient. This includes bedside care, interpretation of diagnostic studies, and testing, discussion with consultants, patient, and family members, and other required patient management activities. This 35 minutes is in excess of all separately billable procedures. Get Trejo MD Past Med/Surg History Medical History Depression Diabetes type 2, uncontrolled Diabetic peripheral neuropathy associated with type 2 diabetes mellitus DVT (deep venous thrombosis) (08/16/13) Dysesthesia Dyslipidemia Hypertension Personal history of diabetic foot ulcer Vitamin D deficiency Surgical History S/P hernia repair S/P PICC central line placement with removal S/P rotator cuff repair Family History Aunt No problems noted. Grandmother (Maternal) Throat cancer Myocardial infarction Grandfather (Maternal) Myocardial infarction Other Coronary heart disease Diabetes No pertinent family history Denies family history of Ovarian cancer Prostate cancer Breast cancer Colorectal cancer Social History Smoking Status: Former smoker Tobacco Type: Cigarettes Hx Alcohol Use: No Hx Substance Use: No Preferred Language: Luxembourger Communication Ability: Effective Shank Archer Required: No Beliefs That Will Affect Care: None marital status: Current Living Situation: Spouse Current Living Situation Comment: Home current occupational status: disabled How many Children do You have: 2 Feels Safe at Home: Yes Safety Concerns: Feels Safe At This Time Physical Activity Frequency: Does not Exercise Seatbelt Use: always Sunscreen Use: Yes Assistive Devices: Wheelchair Allergies Allergies Allergy/AdvReac Type Severity Reaction Status Date / Time clindamycin Allergy Intermediate Hives Verified 08/16/21 16:14 cefepime Allergy Mild RASH-POSSIBLY Verified 08/16/21 16:27 DUE TO CEFEPIME vancomycin AdvReac Intermediate KYE Verified 08/16/21 16:14 SYNDROME piperacillin [From Zosyn] AdvReac Mild skin rash, Verified 08/16/21 16:14 itching, mild tazobactam [From Zosyn] AdvReac Mild skin rash, Verified 08/16/21 16:14 itching, mild Home Meds Home Medications Medication Instructions Recorded Confirmed Oxygen Home 08/15/21 08/15/21 doxepin 10 mg capsule 10 mg PO HS 08/15/21 08/16/21 fluoxetine 60 mg tablet 60 mg PO DAILY 08/15/21 08/16/21 furosemide 20 mg tablet 100 mg PO DAILY 08/15/21 08/16/21 hydroxyzine HCl 25 mg tablet 25 mg PO DAILY PRN 08/15/21 08/16/21 insulin lispro 100 unit/mL 1 sliding scale dose SUBCUT 08/15/21 08/16/21 subcutaneous pen (Humalog KwikPen USEASDIRECTD (U-100) Insulin) lisinopril 2.5 mg tablet 2.5 mg PO DAILY 08/15/21 08/16/21 multivitamin 1 tab PO DAILY 08/15/21 08/16/21 pantoprazole 40 mg tablet,delayed 40 mg PO BID tab 08/15/21 08/16/21 release rivaroxaban 10 mg tablet (Xarelto) 20 mg PO DAILY tab 08/15/21 08/16/21 venlafaxine 75 mg tablet,extended 75 mg PO DAILY 08/15/21 08/16/21 release 24 hr Previous Rx's Medication Instructions Recorded pen needle, diabetic gauge x #100 ea 03/14/20 1/2" (Comfort EZ Pen Heiskell) cane #1 ea 08/03/20 blood sugar diagnostic (OneTouch #100 ea 09/05/20 Ultra Blue Test Strip) cholecalciferol (vitamin D3) 125 5,000 unit PO DAILY #90 tab 01/14/21 mcg (5,000 unit) tablet (Vitamin D3) albuterol sulfate 90 mcg/actuation 2 puff INHALATION Q6H PRN #18 gm 03/12/21 aerosol inhaler (Ventolin HFA) gabapentin 600 mg tablet 600 mg PO DAILY #90 tab 03/26/21 rosuvastatin 5 mg tablet 5 mg PO DAILY #90 tab 04/30/21 Dexcom G6 Diabetes Solutions Specialist (blood-glucose #1 ea NS 07/16/21 meter,continuous) Dexcom G6 Sensor (blood-glucose #3 ea NS 07/16/21 sensor) Dexcom G6 Transmitter #1 ea NS 07/16/21 (blood-glucose transmitter) semaglutide (weight loss) 1.7 1.7 mg SUBCUT Q7D #3 ml 07/26/21 mg/0.75 mL subcutaneous pen injector (Wegovy) topiramate 25 mg tablet 25 mg PO HS #60 tab 07/31/21 Results & Data (ED) Vital Signs Vital Signs - 24 hr 08/16/21 12:32 08/16/21 14:28 08/16/21 16:27 Temperature 36.3 C L Temperature Source Temporal Artery Scan Pulse Rate 90 Pulse Rate [Bilateral Apical] 79 76 Respiratory Rate 20 22 20 Respiratory Effort / Characteristics Non-Labored Non-Labored Respiratory Depth Normal Blood Pressure 120/72 Blood Pressure [Left Arm] 122/70 131/74 Blood Pressure Mean 88 Blood Pressure Mean [Left Arm] 87 93 Pulse Oximetry 97 97 96 Oxygen Delivery Method Room Air Room Air Room Air Sepsis Recent Fever Within 48 Hours No Sepsis New/Unexplained Change in Mental Status No Sepsis Action Taken by Nursing No Action Required 08/16/21 18:00 08/16/21 19:47 Temperature Temperature Source Pulse Rate Pulse Rate [Bilateral Apical] 84 80 Respiratory Rate 21 18 Respiratory Effort / Characteristics Non-Labored Non-Labored Spontaneous Respiratory Depth Normal Blood Pressure Blood Pressure [Left Arm] 126/78 122/70 Blood Pressure Mean Blood Pressure Mean [Left Arm] 94 87 Pulse Oximetry 97 98 Oxygen Delivery Method Room Air Room Air Sepsis Recent Fever Within 48 Hours Sepsis New/Unexplained Change in Mental Status Sepsis Action Taken by Nursing Laboratory Data Attestation: I reviewed the patient's lab results. Result diagrams: 08/16/21 17:30 08/16/21 17:30 Lab Results 08/16/21 08/16/21 08/16/21 Range/Units 16:20 16:20 16:43 WBC (4.8-10.8) K/uL RBC (4.7-6.1) M/uL Hgb (14.0-18.0) g/dL Hct (42-52) % MCV (80-100) fL MCH (25-34) pg MCHC (32-36) g/dL RDW Std Deviation (36.4-46.3) fL RDW Coeff of Wil (11.5-14.5) % Plt Count (130-400) K/uL MPV (7.4-10.4) fL Immature Gran % (Auto) % Neut % (Auto) % Lymph % (Auto) % [place] % (Auto) % Eos % (Auto) % Baso % (Auto) % Neut # (Auto) (1.4-6.5) K/uL Lymph # (Auto) (1.2-3.4) K/uL [place] # (Auto) (0.11-0.59) K/uL Eos # (Auto) (0-0.5) K/uL Baso # (Auto) (0-0.2) K/uL Immature Gran # (Auto) (0.00-0.02) K/uL ESR (0-20) mm/hr PT (9.0-12.0) Seconds INR (0.9-1.1) APTT (21.0-31.0) Seconds PTT Ratio Sodium (136-145) mmol/L Potassium (3.5-5.1) mmol/L Chloride (98-107) mmol/L Carbon Dioxide (21-32) mmol/L Anion Gap (3-11) BUN (7-18) mg/dl Creatinine (0.6-1.4) mg/dl Est Cr Clr Drug Dosing Est GFR ( Amer) ml/min Est GFR (Non-Af Amer) ml/min BUN/Creatinine Ratio (10-20) Glucose (70-99) mg/dl Lactate (0.4-2.0) mmol/L Calcium (8.5-10.1) mg/dl Magnesium (1.8-2.4) mg/dl Total Bilirubin (0.2-1) mg/dl AST (15-37) U/L ALT (12-78) U/L Alkaline Phosphatase (45-117) U/L Total Creatine Kinase (39-308) U/L Troponin I (0-0.045) ng/ml C-Reactive Protein (0-0.29) mg/dl Total Protein (6.4-8.2) gm/dl Albumin (3.4-5.0) gm/dl Globulin (2.5-4.0) gm/dl Albumin/Globulin Ratio (0.9-2) Procalcitonin (0-0.5) ng/ml Urine Color Yellow Urine Appearance Clear (Clear) Urine pH 7.5 (4.5-7.5) Ur Specific [place] 1.016 (1.000-1.030) Urine Protein Negative (Negative) Urine Glucose (UA) Negative (Negative) Urine Ketones Negative (Negative) Urine Blood Trace H (Negative) Urine Nitrite Negative (Negative) Urine Bilirubin Negative (Negative) Urine Urobilinogen Negative (Negative) Ur Leukocyte Esterase 1+ H (Negative) Urine WBC (Auto) 5-10 H (0-5) /hpf Urine RBC (Auto) 5-10 H (0-4) /hpf U Hyaline Cast (Auto) 0 (0-5) /lpf U Epithel Cells (Auto) 10-20 H (0-5) /lpf Urine Bacteria (Auto) Negative (Negative) Urine Yeast Budding A (None Prsent) COVID-19 Eval Order Covid19 at [facility] SARS-CoV-2 (PCR) NEGATIVE (Negative) 08/16/21 08/16/21 08/16/21 Range/Units 17:30 17:30 17:30 WBC 6.14 (4.8-10.8) K/uL RBC 2.97 L (4.7-6.1) M/uL Hgb 8.7 L (14.0-18.0) g/dL Hct 26.8 L (42-52) % MCV 90.2 (80-100) fL MCH 29.3 (25-34) pg MCHC 32.5 (32-36) g/dL RDW Std Deviation 50.9 H (36.4-46.3) fL RDW Coeff of Wil 15.6 H (11.5-14.5) % Plt Count 437 H (130-400) K/uL MPV 9.0 (7.4-10.4) fL Immature Gran % (Auto) 0.3 % Neut % (Auto) 53.2 % Lymph % (Auto) 31.4 % [place] % (Auto) 12.5 % Eos % (Auto) 1.6 % Baso % (Auto) 1.0 % Neut # (Auto) 3.26 (1.4-6.5) K/uL Lymph # (Auto) 1.93 (1.2-3.4) K/uL [place] # (Auto) 0.77 H (0.11-0.59) K/uL Eos # (Auto) 0.10 (0-0.5) K/uL Baso # (Auto) 0.06 (0-0.2) K/uL Immature Gran # (Auto) 0.02 (0.00-0.02) K/uL ESR (0-20) mm/hr PT 12.1 H (9.0-12.0) Seconds INR 1.2 H (0.9-1.1) APTT 25.2 (21.0-31.0) Seconds PTT Ratio 1.0 Sodium 133 L (136-145) mmol/L Potassium 3.8 (3.5-5.1) mmol/L Chloride 102 (98-107) mmol/L Carbon Dioxide 27 (21-32) mmol/L Anion Gap 4.0 (3-11) BUN 14 (7-18) mg/dl Creatinine 1.03 (0.6-1.4) mg/dl Est Cr Clr Drug Dosing Not Reportable Est GFR ( Amer) 95.7 ml/min Est GFR (Non-Af Amer) 82.5 ml/min BUN/Creatinine Ratio 13.3 (10-20) Glucose 187 H (70-99) mg/dl Lactate (0.4-2.0) mmol/L Calcium 8.4 L (8.5-10.1) mg/dl Magnesium 2.0 (1.8-2.4) mg/dl Total Bilirubin 0.5 (0.2-1) mg/dl AST 21 (15-37) U/L ALT 21 (12-78) U/L Alkaline Phosphatase 70 (45-117) U/L Total Creatine Kinase 86 (39-308) U/L Troponin I 0.065 H* (0-0.045) ng/ml C-Reactive Protein (0-0.29) mg/dl Total Protein 9.9 H (6.4-8.2) gm/dl Albumin 1.9 L (3.4-5.0) gm/dl Globulin 8.0 H (2.5-4.0) gm/dl Albumin/Globulin Ratio 0.2 L (0.9-2) Procalcitonin (0-0.5) ng/ml Urine Color Urine Appearance (Clear) Urine pH (4.5-7.5) Ur Specific [place] (1.000-1.030) Urine Protein (Negative) Urine Glucose (UA) (Negative) Urine Ketones (Negative) Urine Blood (Negative) Urine Nitrite (Negative) Urine Bilirubin (Negative) Urine Urobilinogen (Negative) Ur Leukocyte Esterase (Negative) Urine WBC (Auto) (0-5) /hpf Urine RBC (Auto) (0-4) /hpf U Hyaline Cast (Auto) (0-5) /lpf U Epithel Cells (Auto) (0-5) /lpf Urine Bacteria (Auto) (Negative) Urine Yeast (None Prsent) COVID-19 Eval Order SARS-CoV-2 (PCR) (Negative) 08/16/21 08/16/21 08/16/21 Range/Units 17:30 17:30 17:30 WBC (4.8-10.8) K/uL RBC (4.7-6.1) M/uL Hgb (14.0-18.0) g/dL Hct (42-52) % MCV (80-100) fL MCH (25-34) pg MCHC (32-36) g/dL RDW Std Deviation (36.4-46.3) fL RDW Coeff of Wil (11.5-14.5) % Plt Count (130-400) K/uL MPV (7.4-10.4) fL Immature Gran % (Auto) % Neut % (Auto) % Lymph % (Auto) % [place] % (Auto) % Eos % (Auto) % Baso % (Auto) % Neut # (Auto) (1.4-6.5) K/uL Lymph # (Auto) (1.2-3.4) K/uL [place] # (Auto) (0.11-0.59) K/uL Eos # (Auto) (0-0.5) K/uL Baso # (Auto) (0-0.2) K/uL Immature Gran # (Auto) (0.00-0.02) K/uL ESR 48 H (0-20) mm/hr PT (9.0-12.0) Seconds INR (0.9-1.1) APTT (21.0-31.0) Seconds PTT Ratio Sodium (136-145) mmol/L Potassium (3.5-5.1) mmol/L Chloride (98-107) mmol/L Carbon Dioxide (21-32) mmol/L Anion Gap (3-11) BUN (7-18) mg/dl Creatinine (0.6-1.4) mg/dl Est Cr Clr Drug Dosing Est GFR ( Amer) ml/min Est GFR (Non-Af Amer) ml/min BUN/Creatinine Ratio (10-20) Glucose (70-99) mg/dl Lactate 1.3 (0.4-2.0) mmol/L Calcium (8.5-10.1) mg/dl Magnesium (1.8-2.4) mg/dl Total Bilirubin (0.2-1) mg/dl AST (15-37) U/L ALT (12-78) U/L Alkaline Phosphatase (45-117) U/L Total Creatine Kinase (39-308) U/L Troponin I (0-0.045) ng/ml C-Reactive Protein 6.26 H (0-0.29) mg/dl Total Protein (6.4-8.2) gm/dl Albumin (3.4-5.0) gm/dl Globulin (2.5-4.0) gm/dl Albumin/Globulin Ratio (0.9-2) Procalcitonin (0-0.5) ng/ml Urine Color Urine Appearance (Clear) Urine pH (4.5-7.5) Ur Specific [place] (1.000-1.030) Urine Protein (Negative) Urine Glucose (UA) (Negative) Urine Ketones (Negative) Urine Blood (Negative) Urine Nitrite (Negative) Urine Bilirubin (Negative) Urine Urobilinogen (Negative) Ur Leukocyte Esterase (Negative) Urine WBC (Auto) (0-5) /hpf Urine RBC (Auto) (0-4) /hpf U Hyaline Cast (Auto) (0-5) /lpf U Epithel Cells (Auto) (0-5) /lpf Urine Bacteria (Auto) (Negative) Urine Yeast (None Prsent) COVID-19 Eval Order SARS-CoV-2 (PCR) (Negative) 08/16/21 Range/Units 18:00 WBC (4.8-10.8) K/uL RBC (4.7-6.1) M/uL Hgb (14.0-18.0) g/dL Hct (42-52) % MCV (80-100) fL MCH (25-34) pg MCHC (32-36) g/dL RDW Std Deviation (36.4-46.3) fL RDW Coeff of Wil (11.5-14.5) % Plt Count (130-400) K/uL MPV (7.4-10.4) fL Immature Gran % (Auto) % Neut % (Auto) % Lymph % (Auto) % [place] % (Auto) % Eos % (Auto) % Baso % (Auto) % Neut # (Auto) (1.4-6.5) K/uL Lymph # (Auto) (1.2-3.4) K/uL [place] # (Auto) (0.11-0.59) K/uL Eos # (Auto) (0-0.5) K/uL Baso # (Auto) (0-0.2) K/uL Immature Gran # (Auto) (0.00-0.02) K/uL ESR (0-20) mm/hr PT (9.0-12.0) Seconds INR (0.9-1.1) APTT (21.0-31.0) Seconds PTT Ratio Sodium (136-145) mmol/L Potassium (3.5-5.1) mmol/L Chloride (98-107) mmol/L Carbon Dioxide (21-32) mmol/L Anion Gap (3-11) BUN (7-18) mg/dl Creatinine (0.6-1.4) mg/dl Est Cr Clr Drug Dosing Est GFR ( Amer) ml/min Est GFR (Non-Af Amer) ml/min BUN/Creatinine Ratio (10-20) Glucose (70-99) mg/dl Lactate (0.4-2.0) mmol/L Calcium (8.5-10.1) mg/dl Magnesium (1.8-2.4) mg/dl Total Bilirubin (0.2-1) mg/dl AST (15-37) U/L ALT (12-78) U/L Alkaline Phosphatase (45-117) U/L Total Creatine Kinase (39-308) U/L Troponin I (0-0.045) ng/ml C-Reactive Protein (0-0.29) mg/dl Total Protein (6.4-8.2) gm/dl Albumin (3.4-5.0) gm/dl Globulin (2.5-4.0) gm/dl Albumin/Globulin Ratio (0.9-2) Procalcitonin 0.05 (0-0.5) ng/ml Urine Color Urine Appearance (Clear) Urine pH (4.5-7.5) Ur Specific [place] (1.000-1.030) Urine Protein (Negative) Urine Glucose (UA) (Negative) Urine Ketones (Negative) Urine Blood (Negative) Urine Nitrite (Negative) Urine Bilirubin (Negative) Urine Urobilinogen (Negative) Ur Leukocyte Esterase (Negative) Urine WBC (Auto) (0-5) /hpf Urine RBC (Auto) (0-4) /hpf U Hyaline Cast (Auto) (0-5) /lpf U Epithel Cells (Auto) (0-5) /lpf Urine Bacteria (Auto) (Negative) Urine Yeast (None Prsent) COVID-19 Eval Order SARS-CoV-2 (PCR) (Negative) Administered Medications Aztreonam 2,000 mg/ Dextrose 110 mls @ 100 mls/hr IV Q8H [facility]; Protocol Stop: 08/24/21 00:59 Last Infusion: 08/17/21 02:39 Dose: 0 mls/hr Documented by: [id number] Admin: 08/17/21 01:29 Dose: 100 mls/hr Documented by: [id number] Pantoprazole Sodium 40 mg/ (Syringe) 10 mls @ 5 mls/min IV BID [facility] Stop: 09/15/21 23:43 Last Admin: 08/17/21 00:33 Dose: 5 mls/min Documented by: [id number] Daptomycin 500 mg/ Syringe 10 mls @ 5 mls/min IV Q24H [facility]; Protocol Stop: 08/24/21 00:59 Last Admin: 08/17/21 01:29 Dose: 5 mls/min Documented by: [id number] Insulin Aspart (Insulin Aspart 100 Units/Ml 3 Ml Pen) 0 units SC ACHS [facility] Stop: 09/15/21 23:43 Last Admin: 08/17/21 01:25 Dose: 8 units Documented by: [id number] Cosigned by: [id number] Insulin Glargine (Insulin Glargine Solostar 100 Units/Ml 3 Ml Pen) 10 units SC BID [facility] Stop: 09/15/21 23:43 Last Admin: 08/17/21 01:25 Dose: 10 units Documented by: [id number] Cosigned by: [id number] Topiramate (Topiramate 25 Mg Tab) 25 mg PO HS [facility] Stop: 09/15/21 23:43 Last Admin: 08/17/21 00:33 Dose: 25 mg Documented by: [id number] Discontinued Medications Sodium Chloride (Nss) 500 mls @ 999 mls/hr IV .Q31M ONE Stop: 08/16/21 16:32 Last Infusion: 08/16/21 18:25 Dose: 0 mls/hr Documented by: [id number] Admin: 08/16/21 17:47 Dose: 999 mls/hr Documented by: [id number] Acetaminophen (Ofirmev) 1,000 mg in 100 mls @ 400 mls/hr IV NOW STA Stop: 08/16/21 16:16 Last Infusion: 08/16/21 18:24 Dose: 0 mls/hr Documented by: [id number] Admin: 08/16/21 17:48 Dose: 400 mls/hr Documented by: [id number] Cefepime HCl (Maxipime) 2,000 mg in 20 mls @ 5 mls/min IV NOW STA; Protocol Stop: 08/16/21 16:23 Last Admin: 08/16/21 17:47 Dose: 5 mls/min Documented by: [id number] Morphine Sulfate (Morphine Sulfate 4 Mg/Ml 1 Ml Carp\\Vial) 4 mg IV NOW STA Stop: 08/16/21 16:03 Last Admin: 08/16/21 17:48 Dose: 4 mg Documented by: [id number] Imaging Data Radiologist's Impression: Chest X-Ray 08/16/21 16:02 XR chest 1V portable CLINICAL HISTORY: SEPSIS TECHNIQUE: Single frontal radiograph of the chest was obtained. Comparison: Comparison is made to chest one view 08/02/2021 FINDINGS: No lines and tubes are seen. Cardiomegaly is noted. There is prominence and indistinctness of the vasculature without evidence of Jessie B lines. No evidence of pleural effusion or pneumothorax. IMPRESSION: Cardiomegaly and mild pulmonary edema, slightly increased from prior exam. ACT 112: Negative or not required by law. Electronically signed by: Aroldo Levy M.D. 08/16/2021 5:31 PM Venous Doppler Study 08/16/21 20:22 US venous doppler LE RT CLINICAL HISTORY: r/o DVT COMPARISON: None available at the time of this dictation. TECHNIQUE: Right lower extremity real-time compression venous ultrasound with Color Doppler imaging. Utilizing real-time ultrasonic imaging multiple real time high-resolution ultrasonic images with compression and noncompression maneuvers of the deep venous system in addition to color doppler imaging were performed from the common femoral vein through the proximal calf veins. FINDINGS: No acute deep venous thrombus is seen. There may be a chronic nonocclusive thrombus in the right popliteal vein, which is not completely compressible. Impression: Possible chronic popliteal thrombus. No acute thrombus. ACT 112: Negative or not required by law. Electronically signed by: Aroldo Levy M.D. 08/16/2021 9:26 PM Discharge Plan Visit Data Chief Complaint: Leg Injury/Pain Stated Complaint: LEG PAIN, CELLULITIS ED Provider: Get Trejo Discharge Problem: Cellulitis of right leg, Elevated troponin, Anemia Patient Disposition: Admitted As Inpatient Discharge Instructions Interventions: ED Discharge Assessment Last Done: 08/16/21 21:14 Discharge Problem: Anemia Qualifiers: Anemia type: unspecified type Qualified Code(s): D64.9 - Anemia, unspecified
[2021-08-16] MEDS ORDERED: CEFEPIME 2,000 MG/20 ML VIAL IV STA (16:20)
[2021-08-16 16:56] LABS: Appearance Urine Clear (Clear); Bacteria Urine Automated Negative (Negative); Bilirubin Urine Negative (Negative); Blood Urine Trace (Negative); Cast Urine Automated 0 /lpf (0-5); Color Urine Yellow; Glucose Urine UA Negative (Negative); Ketones Urine Negative (Negative); Leukocyte Esterase Urine 1+ (Negative); Nitrite Urine Negative (Negative); Protein Urine Negative (Negative); Specific Gravity Urine 1.016 (1.000-1.030); Urobilinogen Urine Negative (Negative); pH Urine 7.5 (4.5-7.5)
--- NOTE | 2021-08-16 17:33 | XRay Report ---
XR chest 1V portable CLINICAL HISTORY: SEPSIS TECHNIQUE: Single frontal radiograph of the chest was obtained. Comparison: Comparison is made to chest one view 08/02/2021 FINDINGS: No lines and tubes are seen. Cardiomegaly is noted. There is prominence and indistinctness of the vas culature without evidence of Jessie B lines. No evidence of pleural effusion or pneumothorax. IMPRESSION: Cardiomegaly and mild pulmonary edema, slightly increased from prior exam. ACT 112: Negative or not required by law. Electronically signed by: Aroldo Levy M.D. 08/16/2021 5:31 PM
[2021-08-16 17:44] LABS: Basophils # (auto) 0.06 K/uL (0-0.2); Eosinophils % (auto) 1.6 %; Hematocrit (blood only) 26.8 % (42-52); Hemoglobin 8.7 g/dL (14.0-18.0); Immature Granulocytes # (auto) 0.02 K/uL (0.00-0.02); Immature Granulocytes % (auto) 0.3 %; Lymphocytes # (auto) 1.93 K/uL (1.2-3.4); Lymphocytes % (auto) 31.4 %; Mean Corpuscular Hemoglobin 29.3 pg (25-34); Mean Corpuscular Hgb Conc 32.5 g/dL (32-36); Mean Corpuscular Volume 90.2 fL (80-100); Monocytes # (auto) 0.77 K/uL (0.11-0.59); Monocytes % (auto) 12.5 %; Neutrophils # (auto) 3.26 K/uL (1.4-6.5); Neutrophils % (auto) 53.2 %; Platelet Count 437 K/uL (130-400); RDW Coefficient of Variation 15.6 % (11.5-14.5); RDW Standard Deviation 50.9 fL (36.4-46.3); Red Blood Count 2.97 M/uL (4.7-6.1); White Blood Count 6.14 K/uL (4.8-10.8)
[2021-08-16 17:54] LABS: INR 1.2 (0.9-1.1); Partial Thromboplastin Time 25.2 Seconds (21.0-31.0); Prothrombin Time 12.1 Seconds (9.0-12.0)
[2021-08-16 18:01] LABS: Alanine Aminotransferase 21 U/L (12-78); Albumin Level 1.9 gm/dl (3.4-5.0); Aspartate Aminotransferase 21 U/L (15-37); BUN Creatinine Ratio 13.3 (10-20); Blood Urea Nitrogen 14 mg/dl (7-18); Calcium 8.4 mg/dl (8.5-10.1); Carbon Dioxide 27 mmol/L (21-32); Chloride 102 mmol/L (98-107); Est GFR (African American) 95.7 ml/min; Est GFR (Non-African American) 82.5 ml/min; Glucose 187 mg/dl (70-99); Potassium 3.8 mmol/L (3.5-5.1); Sodium 133 mmol/L (136-145)
[2021-08-16 18:08] LABS: Albumin Globulin Ratio 0.2 (0.9-2); Alkaline Phosphatase 70 U/L (45-117); Bilirubin,Total 0.5 mg/dl (0.2-1); Creatine Kinase 86 U/L (39-308); Total Protein 9.9 gm/dl (6.4-8.2); Troponin I 0.065 ng/ml (0-0.045)
--- NOTE | 2021-08-16 18:16 | Electrocardiogram Report ---
Test Reason : Blood Pressure : / mmHG Vent. Rate : 082 BPM Atrial Rate : 082 BPM P-R Int : 184 ms QRS Dur : 096 ms QT Int : 414 ms P-R-T Axes : 063 033 100 degrees QTc Int : 483 ms Normal sinus rhythm Low voltage QRS Possible Inferior infarct (cited on or before 31-JUL-2021) Abnormal ECG When compared with ECG of 02-AUG-2021 03:05, Vent. rate has decreased BY 48 BPM Incomplete right bundle branch block is no longer Present Confirmed by Neri Espitia ([id number]) on 08/16/2021 6:16:26 PM Referred By: REFERRED SELF Confirmed By:Doron Espitia
--- NOTE | 2021-08-16 20:41 | History & Physical Report ---
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 RLE swelling and cellulitis: Recent history of, was on vancomycin -> Linezolid for total therapy of 14 days through [facility], and completed his course on 08/15. Noticed this morning that his RLE redness and pain was getting worse, and I do note that his erythema has extended past the marker line drawn by [facility] provider during recent admission. Not presenting septic this admission. RLE venous doppler with chronic DVT but no acute DVT. No findings that suggest PE. Patient is non-tachycardic and saturating well on room air. Given several antibiotics reactions in the past, recent hospitalization, DM2, will cover broadly with Daptomycin and Aztreonam, which will also cover MRSA/Pseudomonas. Can deescalate as able. EKG changes, elevated troponin: Patient was recently admitted with a troponin of 18, felt by ICU to be due to severe sepsis and septic shock. Echocardiogram at [facility] with EF 50-54%, no wall motion abnormalities. Troponin elevated on admission today to 0.065; EKG performed which shows new T wave inversions in aVL and V2 not present on 07/31 EKG. Patient is asymptomatic (no chest pain or anginal equivalents). Will hold off on Heparin gtt at this time due to recent GI bleed. Continue daily aspirin, statin. Will have patient seen by Cardiology to determine need for catheterization; patient does have significant risk factors for CAD and recently had NSTEMI in the setting of sepsis. Blood loss anemia: Hgb 8.7 on admission; on d/c from [facility] on 08/13 Hgb was 9.0 so patient is stable at this time. Blood loss secondary to duodenal ulcer that was bleeding but had stopped by the time EGD was performed. Continue PPI IV BID, famotidine IV daily. Defer GI referral for now as patient is not actively bleeding, but certainly could consider if patient requires heparin gtt given recent GIB. DM2: A1c of 8/5% on 08/02. Lantus 10u BID with sliding scale; titrate based on BSGs. DM2 diet. Depression, anxiety: Continue home medications. Code Status: FULL CODE FEN: Heart healthy, low sodium, DM2 diet DVT ppx: SCD knee bilateral given no acute DVT Dispo: Telemetry History of Present Illness Chief Complaint: general malaise, worsening right leg pain Primary Care Provider: Mike Isidro MD 51 yo M with a history of DM2 on insulin with Hx diabetic ulcers and previous B KA of the LLE, HLD, HTN, Hx recurrent DVT previous on Xarelto therapy, recent admission to [facility] and transfer to [facility] with discharge 08/13/21 for sepsis 2/2 RLE cellulitis and upper GIB. He presented to the ER today for worsening RLE pain and general malaise worsening since discharge from [facility]. After recent transfer to [facility] he was evaluated by GI there and did have EGD which showed gastritis as well as a nonbleeding linear ulcer with a clean ulcer base (Yves Class III) in the duodenal bulb extending into the first portion of the duodenum. He was continued on IV PPI and transitioned to PO PPI on discharge, with plan to repeat EGD in 8-10 weeks. He does not note bloody BMs since discharge from [facility]. He does note that he has had intermittent diarrhea since his last few days at [facility] which he has continued to have since discharge home. Last night, he had a particularly large episode of diarrhea without blood or melena. He was discharged from [facility] on Linezolid and in total completed 14 days of antibiotics for his RLE cellulits. He and his report that the pain and redness of the leg has worsened since discharge anteriorly, however the patient reports the pain is significantly worse on the posterior leg into the thigh. He was discharged from [facility] with a prescription for 1L O2 as needed, and is to be evaluated for EVITA with a sleep study. Lastly, he did have Echocardiogram at [facility] with reported EF of 50-54% without wall motion abnormality. Patient does not weigh himself at home and so is unsure if he has gained weight since discharge. He has a history of DVT in the past and was on Xarelto until recently, as he recently had GI bleed as described above. In the ER today patient was noted to be afebrile, non-tachycardic, saturating well on room air. CBC noted to have Hgb 8.7 (compared to 08/13 [facility] d/c Hgb of 9.0). Platelets elevated to 437. Troponin elevated to 0.065 (during last admission did have troponin as high as 18 from NSTEMI). Procalcitonin negative, ESR elevated. Urine with yeast, however patient does not report UTI symptoms. COVID 19 negative. CXR performed which showed mild increase in pulmonary edema from last admission. Allergies Allergy/AdvReac Type Severity Reaction Status Date / Time clindamycin Allergy Intermediate Hives Verified 08/16/21 16:14 cefepime Allergy Mild RASH-POSSIBLY Verified 08/16/21 16:27 DUE TO CEFEPIME vancomycin AdvReac Intermediate KYE Verified 08/16/21 16:14 SYNDROME piperacillin [From Zosyn] AdvReac Mild skin rash, Verified 08/16/21 16:14 itching, mild tazobactam [From Zosyn] AdvReac Mild skin rash, Verified 08/16/21 16:14 itching, mild Home Medications Medication Instructions Recorded Confirmed Type pen needle, diabetic 29 gauge x #100 ea 03/14/20 08/15/21 Rx 1/2" (Comfort EZ Pen [place]) cane #1 ea 08/03/20 08/15/21 Rx blood sugar diagnostic (OneTouch #100 ea 09/05/20 08/15/21 Rx Ultra Blue Test Strip) cholecalciferol (vitamin D3) 125 5,000 unit PO DAILY #90 tab 01/14/21 08/16/21 Rx mcg (5,000 unit) tablet (Vitamin D3) albuterol sulfate 90 mcg/actuation 2 puff INHALATION Q6H PRN #18 gm 03/12/21 08/16/21 Rx aerosol inhaler (Ventolin HFA) gabapentin 600 mg tablet 600 mg PO DAILY #90 tab 03/26/21 08/16/21 Rx rosuvastatin 5 mg tablet 5 mg PO DAILY #90 tab 04/30/21 08/16/21 Rx Dexcom G6 Vibrating Screed Operator (blood-glucose #1 ea NS 07/16/21 08/15/21 Rx meter,continuous) Dexcom G6 Sensor (blood-glucose #3 ea NS 07/16/21 08/15/21 Rx sensor) Dexcom G6 Transmitter #1 ea NS 07/16/21 08/15/21 Rx (blood-glucose transmitter) semaglutide (weight loss) 1.7 1.7 mg SUBCUT Q7D #3 ml 07/26/21 08/16/21 Rx mg/0.75 mL subcutaneous pen injector (Wegovy) topiramate 25 mg tablet 25 mg PO HS #60 tab 07/31/21 08/16/21 Rx Oxygen Home 08/15/21 08/15/21 History doxepin 10 mg capsule 10 mg PO HS 08/15/21 08/16/21 History fluoxetine 60 mg tablet 60 mg PO DAILY 08/15/21 08/16/21 History furosemide 20 mg tablet 100 mg PO DAILY 08/15/21 08/16/21 History hydroxyzine HCl 25 mg tablet 25 mg PO DAILY PRN 08/15/21 08/16/21 History insulin lispro 100 unit/mL 1 sliding scale dose SUBCUT 08/15/21 08/16/21 History subcutaneous pen (Humalog KwikPen USEASDIRECTD (U-100) Insulin) lisinopril 2.5 mg tablet 2.5 mg PO DAILY 08/15/21 08/16/21 History multivitamin 1 tab PO DAILY 08/15/21 08/16/21 History pantoprazole 40 mg tablet,delayed 40 mg PO BID tab 08/15/21 08/16/21 History release rivaroxaban 10 mg tablet (Xarelto) 20 mg PO DAILY tab 08/15/21 08/16/21 History venlafaxine 75 mg tablet,extended 75 mg PO DAILY 08/15/21 08/16/21 History release 24 hr Past Med/Surg History Medical History Depression Diabetes type 2, uncontrolled Diabetic peripheral neuropathy associated with type 2 diabetes mellitus DVT (deep venous thrombosis) (08/16/13) Dysesthesia Dyslipidemia Hypertension Personal history of diabetic foot ulcer Vitamin D deficiency Surgical History S/P hernia repair S/P PICC central line placement with removal S/P rotator cuff repair Family History Aunt No problems noted. Grandmother (Maternal) Throat cancer Myocardial infarction Grandfather (Maternal) Myocardial infarction Other Coronary heart disease Diabetes No pertinent family history Denies family history of Ovarian cancer Prostate cancer Breast cancer Colorectal cancer Social History Smoking Status: Former smoker Tobacco Type: Cigarettes Hx Alcohol Use: No Hx Substance Use: No Preferred Language: Welsh Communication Ability: Unable Rehabilitation Therapist Required: No Beliefs That Will Affect Care: None marital status: Current Living Situation: Spouse Current Living Situation Comment: Home current occupational status: disabled How many Children do You have: 2 Feels Safe at Home: Yes Safety Concerns: Feels Safe At This Time Physical Activity Frequency: Does not Exercise Seatbelt Use: always Sunscreen Use: Yes Assistive Devices: Wheelchair Review of Systems Review of Systems: All systems reviewed & are unremarkable except as noted in HPI & below Constitutional: no fever, no chills and no malaise Respiratory: no cough and no dyspnea Cardiovascular: no chest pain, no palpitations and no edema Gastrointestinal: no abdominal pain, no constipation and no diarrhea/loose stools Physical Exam Constitutional: WD/WN, vitals as above Eyes: PERRL, conjunctivae normal, anicteric sclerae ENMT: external ear and nose normal, oropharynx normal Neck: normal visual inspection Respiratory: bibasilar crackles, no wheezes, symmetric chest expansion, no increase work of breathing Cardiovascular: Rate/Rhythm: regular rate and regular rhythm Heart Sounds: no murmur Extremities: + edema Gastrointestinal (Abdomen): normal bowel sounds, soft, nontender, no hepatosplenomegaly Musculoskeletal: no cyanosis or clubbing, extremities motor strength 5/5 Skin: RLE with erythema to 3[address] the harkins; 2+ pitting edema to RLE. Noted to have a wound marker line with erythema crossing the line on right leg. Pain noted to right posterior calf and posterior thigh on palpation. Left BKA. Neurologic: AAOx3, normal speech. Bilateral UE, LE, and face without sensory or motor deficits No tremor. Psychiatric: A+Ox3, euthymic affect Results & Data Results & Data ([facility]) Vital Signs (Past 12 Hours) Vital Signs Temp Pulse Pulse Resp BP BP Pulse Ox 08/16/21 19:47 80 18 122/70 98 08/16/21 18:00 84 21 126/78 97 08/16/21 16:27 76 20 131/74 96 08/16/21 14:28 79 22 122/70 97 08/16/21 12:32 36.3 C L 90 20 120/72 97 Code Status & VTE Plan VTE Prophylaxis Plan VTE Prophylaxis will be ordered: No Supervising Physician Co-Signing Physician Notes Attending addendum: I have physically seen this patient, have supervised the medical residents activities, and agree with the H&P unless as otherwise noted. Assessment and Plan: Right lower extremity cellulitis, recurrence/chronic DVT Daptomycin IV and aztreonam IV as noted Right lower thigh venous Doppler with chronic DVT but no acute DVT Continue Xarelto Elevated troponin/abnormal EKG- The patient will be admitted to telemetry for serial cardiac enzymes, serial EKG's, cardiac rhythm monitoring Recent echo shows ejection fraction 50 to 54% at [facility] Previous admission with trope of 18 Troponin admission today is 0.065, unclear if rising again or if decreasing from previous admission Cannot place on heparin infusion due to recent GI bleed Continue aspirin Consult cardiology Remaining orders and notations as noted Resident Activity Tracking Resident Involvement: Resident Care Provided Care Provided: Adult Hospital Medicine
--- NOTE | 2021-08-16 21:27 | Ultrasound Report ---
US venous doppler LE RT CLINICAL HISTORY: r/o DVT COMPARISON: None available at the time of this dictation. TECHNIQUE: Right lower extremity real-time compression venous ultrasound with Color Doppler imaging. Utilizing real-time ultrasonic imaging multiple real time high-resolution ultrasonic images with comp ression and noncompression maneuvers of the deep venous system in addition to color doppler imaging w ere performed from the common femoral vein through the proximal calf veins. FINDINGS: No acute deep venous thrombus is seen. There may be a chronic nonocclusive thrombus in the right popl iteal vein, which is not completely compressible. Impression: Possible chronic popliteal thrombus. No acute thrombus. ACT 112: Negative or not required by law. Electronically signed by: Aroldo Levy M.D. 08/16/2021 9:26 PM
[2021-08-16] MEDS ORDERED: NITROGLYCERIN SL 0.4 MG/TAB TAB SL PRN (23:44)
[2021-08-16] MEDS ORDERED: hydrOXYzine HCl 25 MG TAB PO PRN (23:44)
[2021-08-16] MEDS ORDERED: DEXTROSE 50% 50 ML SYRINGE IV PRN (23:44)
[2021-08-16] MEDS ORDERED: GLUCOSE 10 TABS/TUBE PO PRN (23:44)
[2021-08-16] MEDS ORDERED: LINEZOLID CONSULT ACTIVE PRN (23:44)
[2021-08-16] MEDS ORDERED: ALBUTEROL HFA 8 GM INHALER INH PRN (23:44)
[2021-08-16] MEDS ORDERED: CARBOHYDRATES FOR HYPOGLYCEMIA PO PRN (23:44)
[2021-08-16] MEDS ORDERED: ONDANSETRON INJ 2 MG/ML 2 ML VIAL IV PRN (23:44)
[2021-08-16] MEDS ORDERED: LINEZOLID 600 MG/300 ML D5W IV SCH (23:44)
[2021-08-16] MEDS ORDERED: GLUCAGON FOR INJ 1 MG VIAL SQ PRN (23:44)
[2021-08-16] MEDS ORDERED: GLUCOSE 40% GEL 15 GM TUBE PO PRN (23:44)
[2021-08-16] MEDS ORDERED: PATIENT'S HEIGHT AND/OR WEIGHT NEEDED SCH (23:45)
[2021-08-17] MEDS: TOPIRAMATE 25 MG TAB PO SCH ×2 (00:33→20:46)
[2021-08-17] MEDS: PANTOprazole 40 MG in SYRINGE 0 ML IV SCH ×2 (00:33→08:37)
[2021-08-17] MEDS: INSULIN ASPART 100 UNITS/ML 3 ML PEN SC SCH ×5 (01:25→22:13)
[2021-08-17] MEDS: INSULIN GLARGINE SOLOSTAR 100 UNITS/ML 3 ML PEN SC SCH ×3 (01:25→22:14)
[2021-08-17] MEDS: AZTREONAM 2,000 MG in DEXTROSE 5% 100 ML IV SCH ×3 (01:29→17:17)
[2021-08-17] MEDS: DAPTOmycin 500 MG in SYRINGE 0 ML IV SCH ×2 (01:29→22:06)
[2021-08-17 07:10] LABS: Basophils # (auto) 0.09 K/uL (0-0.2); Basophils % (auto) 1.9 %; Eosinophils # (auto) 0.11 K/uL (0-0.5); Eosinophils % (auto) 2.3 %; Hematocrit (blood only) 30.1 % (42-52); Hemoglobin 9.5 g/dL (14.0-18.0); Immature Granulocytes # (auto) 0.02 K/uL (0.00-0.02); Immature Granulocytes % (auto) 0.4 %; Lymphocytes # (auto) 1.28 K/uL (1.2-3.4); Lymphocytes % (auto) 26.6 %; Mean Corpuscular Hemoglobin 28.4 pg (25-34); Mean Corpuscular Hgb Conc 31.6 g/dL (32-36); Mean Corpuscular Volume 90.1 fL (80-100); Mean Platelet Volume 9.7 fL (7.4-10.4); Monocytes # (auto) 0.68 K/uL (0.11-0.59); Monocytes % (auto) 14.1 %; Neutrophils # (auto) 2.63 K/uL (1.4-6.5); Neutrophils % (auto) 54.7 %; Platelet Count 280 K/uL (130-400); RDW Coefficient of Variation 15.9 % (11.5-14.5); RDW Standard Deviation 51.3 fL (36.4-46.3); Red Blood Count 3.34 M/uL (4.7-6.1); White Blood Count 4.81 K/uL (4.8-10.8)
[2021-08-17 07:30] LABS: BUN Creatinine Ratio 13.4 (10-20); Calcium 8.5 mg/dl (8.5-10.1); Creatinine Clr Calc Pharmacy 143.3 ml/min; Est GFR (Non-African American) 84.5 ml/min
--- NOTE | 2021-08-17 08:17 | Hospitalist Progress Note ---
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 RLE swelling and cellulitis: - Recent history of, was on vancomycin -> Linezolid for total therapy of 14 days through [facility], and completed his course on 08/15. - His RLE redness and pain getting worse, erythema has extended past the marker line drawn by [facility] provider during recent admission. - Not presenting septic this admission. - RLE venous Doppler with chronic DVT but no acute DVT. No findings that suggest PE. Patient is non-tachycardic and saturating well on room air. - Continue Daptomycin and Aztreonam, which will also cover MRSA/Pseudomonas -- consider double pseudomonas coverage if not improving/worsening within 48-72 hours of abx - Blood cultures drawn and pending EKG changes, elevated troponin: - Patient was recently admitted with a troponin of 18, felt by ICU to be due to severe sepsis and septic shock. - Echocardiogram at [facility] with EF 50-54%, no wall motion abnormalities. - Troponin elevated on admission to 0.065; EKG performed which shows new T wave inversions in aVL and V2 not present on 07/31 EKG. - Trending troponin -- 0.060 --> undetectable --> 0.031 - Patient is asymptomatic (no chest pain or anginal equivalents) - No indication for heparin gtt - Medical risk reduction: - add on metoprolol tartrate 50mg BID, - continue lisinopril, daily ASA - Increase rosuvastatin to 20mg daily - Cardiology consult: - No urgent indication for angiography or other coronary evaluation. - However, will likely benefit from stress testing (probably nuclear given habitus). Can be done outpatient in absence of new symptoms. Blood loss anemia: - Blood loss secondary to duodenal ulcer that was bleeding but had stopped by the time EGD was performed. - Hgb 8.7 on admission; on d/c from [facility] on 08/13 Hgb was 9.0 -- stable at this time. - Continue PPI IV BID, famotidine IV daily. - Defer GI consult for now as patient is not actively bleeding DM2: - A1c of 8/5% on 08/02. - Lantus 10u BID with sliding scale; titrate based on BSGs. - DM2 diet. Depression, anxiety: - Continue home medications. Code Status: FULL CODE FEN: Heart healthy, low sodium, DM2 diet DVT ppx: SCD knee bilateral given no acute DVT Dispo: Telemetry Admission and Anticipated Discharge Date Admission Date: August 16, 2021 Supervising Physician Co-Signing Physician Notes I personally examined the patient and verified all spear points of history and exam, discussed case, and agree with decision making with Dr Ewing. Feeling about the same. Leg not really better, but not really worseredness is may be progressed a little bit past the line drawn. It is tender, but otherwise he feels reasonably okay. Vitals noted, in general he is pleasant does appear fatigued, but is also able to make some rather clever jokes. No distress. is present at the bedside. HEENT normocephalic atraumatic mucous membranes moist. Breathing unlabored no accessory muscle use good effort. Right lower extremity with diffuse venous stasis changes, and at about his proximal harkins may be two thirds [address] the way up, is where the line is drawn, medially and a little bit posteriorly there is a touch of erythema that is more proximal than the line, does not approach his knee and definitely does not cross his knee, this all areas very tender, his distal harkins while it has worse venous stasis changes is less tender, he does have an open ulcer on the extensor surface of his fifth toe, without exudate. Recurrent leg cellulitisfortunately does not appear to be septic this timehe had a terrible course of sepsis recently, but fortunately this does not appear to be repeating itself. He has no crepitus, his vitals and labs are quite reassuring overall, will continue current antibioticsdaptomycin to cover for resistant staph and strep, aztreonam to cover for gram negatives. Right now the slight worsening is concerning, but not overwhelmingly soparticularly given that he was just admitted last night and just started on antibiotics last night. Should he continue to worsen, then we would need to revisit most likely changing our gram-negative coverage (versus double coverage) given that it would be more likely to have a gram-negative breaking through aztreonam than a gram- positive breaking through daptomycin. Continue current care for now, close follow-up. Otherwise as above Subjective No acute events overnight. Patient reports pain in RLE, says it feels like it is very hot. Denies fever, chills, n/v, abd pain, CP, palp, SOB. Review of Systems Review of Systems: per subjective Physical Exam Constitutional: WD/WN, vitals as above Eyes: PERRL, conjunctivae normal, anicteric sclerae ENMT: external ear and nose normal, oropharynx normal Neck: normal visual inspection Respiratory: normal respiratory effort, lungs clear to auscultation Cardiovascular: RRR, no murmur, no edema Rate/Rhythm: regular rate and regular rhythm Heart Sounds: no murmur Extremities: + edema Gastrointestinal (Abdomen): normal bowel sounds, soft, nontender, no hepatosplenomegaly Musculoskeletal: no cyanosis or clubbing, extremities motor strength 5/5 Skin: RLE with chronic venous stasis changes up to mid calf. Erythema and edema noted to be tracking above previously established Sharpie marking. Leg is TTP and warm to the touch. Psychiatric: A+Ox3, euthymic affect Results & Data Results & Data ([facility]) Vital Signs (Past 12 Hours) Vital Signs Temp Pulse Pulse Resp BP Pulse Ox 08/17/21 03:59 36.4 C L 85 19 138/73 94 08/16/21 23:11 36.7 C 84 19 112/70 96 08/16/21 22:35 89 08/16/21 21:47 89 08/16/21 21:45 36.6 C 93 H 16 124/72 97 Resident Activity Tracking Resident Involvement: Resident Care Provided Care Provided: Adult Hospital Medicine
[2021-08-17] MEDS: ASPIRIN 81 MG ECTAB PO SCH (08:33)
[2021-08-17] MEDS: FUROSEMIDE 20 MG TAB PO SCH (08:34)
[2021-08-17] MEDS: GABAPENTIN 600 MG TAB PO SCH (08:35)
[2021-08-17] MEDS: MULTIVITAMIN TAB PO SCH (08:36)
[2021-08-17] MEDS: lisinopril 2.5 MG TAB PO SCH (08:36)
[2021-08-17] MEDS ORDERED: FAMOTIDINE 20 MG in SYRINGE 3 ML IV SCH (09:00)
[2021-08-17] MEDS ORDERED: ROSUVASTATIN CALCIUM 5 MG TAB PO SCH (09:00)
[2021-08-17] MEDS: ACETAMINOPHEN 325 MG TAB PO PRN (09:30)
[2021-08-17] MEDS: METOPROLOL TARTRATE 50 MG TAB PO SCH ×2 (10:05→20:45)
--- NOTE | 2021-08-17 10:20 | Cardiology Consultation ---
Date of Consultation August 17, 2021 Assessment & Plan (1) Elevated troponin: (2) Acute electrocardiogram changes: (3) Diabetes type 2, uncontrolled: 1. Elevated troponin: The absolute elevation in his biomarkers is quite minimal. It is certainly possible this represents the tail end of his NSTEMI experienced 2 weeks ago. Alternatively, a mild rise due to some metabolic derangement recently. 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 He certainly had no symptoms consistent with acute coronary syndrome. I do not believe there is any urgent indication for angiography or other coronary evaluation. However, he is certainly at high risk for coronary disease based on his other comorbidities. At some point in evaluation may be of value. This would likely need to be perfusion imaging given his body habitus. However, this evaluation c ould be deferred to the outpatient setting in the absence of any new symptoms. 2. Abnormal EKG: He certainly has some EKG changes, but in the absence of symptoms the significance is unclear. These changes are not specific. It is very likely that he does have some coronary disease. However, he is very sedentary and has not reported symptoms of coronary disease. I do not believe he is suffering from an acute coronary syndrome. I think therapy at this point is simply supportive. History of Present Illness Reason for Consultation: Elevated troponin, EKG changes Requesting Physician: Abimael Attending Physician: Jose Jerez DO History of Present Illness The patient is a 51-year-old gentleman with poorly controlled diabetes mellitus and associated complications including a left below-knee amputation who was recently admitted to the hospital for lower extremity cellulitis and sepsis requiring transfer to a tertiary care facility for instability. The patient's clinical condition improved and he was discharged home but yesterday was readmitted to the hospital for worsening right lower extremity discomfort and progressive cellulitis. At the time of his initial hospitalization he was noted to have elevated cardiac biomarkers. This was attributed to his critically ill state. Upon arrival yesterday biomarkers remain mildly elevated. He was also felt to have EKG changes. However, the patient did not report symptoms of recent chest discomfort. He has not report of breathing difficulty. He is sedentary. He does not ambulate currently. In the past he has ambulated to some degree with use of a lower extremity prosthetic. Allergies Allergy/AdvReac Type Severity Reaction Status Date / Time clindamycin Allergy Intermediate Hives Verified 08/16/21 16:14 cefepime Allergy Mild RASH-POSSIBLY Verified 08/16/21 16:27 DUE TO CEFEPIME vancomycin AdvReac Intermediate KYE Verified 08/16/21 16:14 SYNDROME piperacillin [From Zosyn] AdvReac Mild skin rash, Verified 08/16/21 16:14 itching, mild tazobactam [From Zosyn] AdvReac Mild skin rash, Verified 08/16/21 16:14 itching, mild Home Medications Medication Instructions Recorded Confirmed Type pen needle, diabetic 29 gauge x #100 ea 03/14/20 08/15/21 Rx 1/2" (Comfort EZ Pen [place]) cane #1 ea 08/03/20 08/15/21 Rx blood sugar diagnostic (OneTouch #100 ea 09/05/20 08/15/21 Rx Ultra Blue Test Strip) cholecalciferol (vitamin D3) 125 5,000 unit PO DAILY #90 tab 01/14/21 08/16/21 Rx mcg (5,000 unit) tablet (Vitamin D3) albuterol sulfate 90 mcg/actuation 2 puff INHALATION Q6H PRN #18 gm 03/12/21 08/16/21 Rx aerosol inhaler (Ventolin HFA) gabapentin 600 mg tablet 600 mg PO DAILY #90 tab 03/26/21 08/16/21 Rx rosuvastatin 5 mg tablet 5 mg PO DAILY #90 tab 04/30/21 08/16/21 Rx Dexcom G6 Type Bar And Segment Assembler (blood-glucose #1 ea NS 07/16/21 08/15/21 Rx meter,continuous) Dexcom G6 Sensor (blood-glucose #3 ea NS 07/16/21 08/15/21 Rx sensor) Dexcom G6 Transmitter #1 ea NS 07/16/21 08/15/21 Rx (blood-glucose transmitter) semaglutide (weight loss) 1.7 1.7 mg SUBCUT Q7D #3 ml 07/26/21 08/16/21 Rx mg/0.75 mL subcutaneous pen injector ([place]) topiramate 25 mg tablet 25 mg PO HS #60 tab 07/31/21 08/16/21 Rx Oxygen Home 08/15/21 08/15/21 History doxepin 10 mg capsule 10 mg PO HS 08/15/21 08/16/21 History fluoxetine 60 mg tablet 60 mg PO DAILY 08/15/21 08/16/21 History furosemide 20 mg tablet 100 mg PO DAILY 08/15/21 08/16/21 History hydroxyzine HCl 25 mg tablet 25 mg PO DAILY PRN 08/15/21 08/16/21 History insulin lispro 100 unit/mL 1 sliding scale dose SUBCUT 08/15/21 08/16/21 History subcutaneous pen (Humalog KwikPen USEASDIRECTD (U-100) Insulin) lisinopril 2.5 mg tablet 2.5 mg PO DAILY 08/15/21 08/16/21 History multivitamin 1 tab PO DAILY 08/15/21 08/16/21 History pantoprazole 40 mg tablet,delayed 40 mg PO BID tab 08/15/21 08/16/21 History release rivaroxaban 10 mg tablet (Xarelto) 20 mg PO DAILY tab 08/15/21 08/16/21 History venlafaxine 75 mg tablet,extended 75 mg PO DAILY 08/15/21 08/16/21 History release 24 hr Patient History Medical History Depression Diabetes type 2, uncontrolled Diabetic peripheral neuropathy associated with type 2 diabetes mellitus DVT (deep venous thrombosis) (08/16/13) Dysesthesia Dyslipidemia Hypertension Personal history of diabetic foot ulcer Vitamin D deficiency Surgical History S/P hernia repair S/P PICC central line placement with removal S/P rotator cuff repair Family History Aunt No problems noted. Grandmother (Maternal) Throat cancer Myocardial infarction Grandfather (Maternal) Myocardial infarction Other Coronary heart disease Diabetes No pertinent family history Denies family history of Ovarian cancer Prostate cancer Breast cancer Colorectal cancer Social History Smoking Status: Former smoker Tobacco Type: Cigarettes Hx Alcohol Use: No Hx Substance Use: No Preferred Language: Turkmen Communication Ability: Effective Dean For [employer] Required: No Beliefs That Will Affect Care: None marital status: Current Living Situation: Spouse Current Living Situation Comment: Home current occupational status: disabled How many Children do You have: 2 Feels Safe at Home: Yes Safety Concerns: Feels Safe At This Time Physical Activity Frequency: Does not Exercise Seatbelt Use: always Sunscreen Use: Yes Assistive Devices: Wheelchair Review of Systems Review of Systems: Per HPI. Patient also reports being very fatigued in wanting to sleep all of the time. He denies any subjective fevers or chills. Some abdominal discomfort which is patchy. Physical Exam Physical Exam: The patient is alert and oriented. Mood and affect appeared normal. He answered all questions appropriately. Morbidly obese HEENT: Pupils are equal and reactive to light and accommodation. Extraocular movements are intact. The sclerae are anicteric. Neuro: Cranial nerves intact Lungs: Clear to auscultation bilaterally. He has good air movement without use of accessory muscles. No rales wheezes or rhonchi. Cardiac: Heart demonstrates a regular rate and rhythm. Normal S1 and S2. No murmurs on examination. Pulses: The patient has palpable radial pulses bilaterally that are equal in intensity Extremities: There was no evidence of hypoperfusion. There is no cyanosis or clubbing. Left below-knee amputation. Brawny edema with trophic changes involving the right lower extremity. Abdomen: Obese. Soft. Tender in some areas, but mild in nature. No rebound tenderness. Skin: I did not appreciate any rashes on examination today. Results & Data ([facility]) Vital Signs (Past 12 Hours) Vital Signs Temp Pulse Pulse Resp BP Pulse Ox 08/17/21 08:22 36.6 C 86 17 139/69 92 08/17/21 03:59 36.4 C L 85 19 138/73 94 08/16/21 23:11 36.7 C 84 19 112/70 96 08/16/21 22:35 89 Laboratory Results Abnormal Lab Results 08/16/21 08/16/21 08/16/21 16:20 16:20 16:43 WBC RBC Hgb Hct MCV MCH MCHC RDW Std Deviation RDW Coeff of Wil Plt Count MPV Immature Gran % (Auto) Neut % (Auto) Lymph % (Auto) [place] % (Auto) Eos % (Auto) Baso % (Auto) Neut # (Auto) Lymph # (Auto) [place] # (Auto) Eos # (Auto) Baso # (Auto) Immature Gran # (Auto) ESR PT INR APTT PTT Ratio Sodium Potassium Chloride Carbon Dioxide Anion Gap BUN Creatinine Est Cr Clr Drug Dosing Est GFR ( Amer) Est GFR (Non-Af Amer) BUN/Creatinine Ratio Glucose POC Glucose Lactate Calcium Magnesium Total Bilirubin AST ALT Alkaline Phosphatase Total Creatine Kinase Troponin I C-Reactive Protein Total Protein Albumin Globulin Albumin/Globulin Ratio Procalcitonin Urine Color Yellow Urine Appearance Clear Urine pH 7.5 Ur Specific [place] 1.016 Urine Protein Negative Urine Glucose (UA) Negative Urine Ketones Negative Urine Blood Trace H Urine Nitrite Negative Urine Bilirubin Negative Urine Urobilinogen Negative Ur Leukocyte Esterase 1+ H Urine WBC (Auto) 5-10 H Urine RBC (Auto) 5-10 H U Hyaline Cast (Auto) 0 U Epithel Cells (Auto) 10-20 H Urine Bacteria (Auto) Negative Urine Yeast Budding A COVID-19 Eval Order Covid19 at [facility] SARS-CoV-2 (PCR) NEGATIVE 08/16/21 08/16/21 08/16/21 17:30 17:30 17:30 WBC 6.14 RBC 2.97 L Hgb 8.7 L Hct 26.8 L MCV 90.2 MCH 29.3 MCHC 32.5 RDW Std Deviation 50.9 H RDW Coeff of Wil 15.6 H Plt Count 437 H MPV 9.0 Immature Gran % (Auto) 0.3 Neut % (Auto) 53.2 Lymph % (Auto) 31.4 [place] % (Auto) 12.5 Eos % (Auto) 1.6 Baso % (Auto) 1.0 Neut # (Auto) 3.26 Lymph # (Auto) 1.93 [place] # (Auto) 0.77 H Eos # (Auto) 0.10 Baso # (Auto) 0.06 Immature Gran # (Auto) 0.02 ESR PT 12.1 H INR 1.2 H APTT 25.2 PTT Ratio 1.0 Sodium 133 L Potassium 3.8 Chloride 102 Carbon Dioxide 27 Anion Gap 4.0 BUN 14 Creatinine 1.03 Est Cr Clr Drug Dosing Not Reportable Est GFR ( Amer) 95.7 Est GFR (Non-Af Amer) 82.5 BUN/Creatinine Ratio 13.3 Glucose 187 H POC Glucose Lactate Calcium 8.4 L Magnesium 2.0 Total Bilirubin 0.5 AST 21 ALT 21 Alkaline Phosphatase 70 Total Creatine Kinase 86 Troponin I 0.065 H* C-Reactive Protein Total Protein 9.9 H Albumin 1.9 L Globulin 8.0 H Albumin/Globulin Ratio 0.2 L Procalcitonin Urine Color Urine Appearance Urine pH Ur Specific [place] Urine Protein Urine Glucose (UA) Urine Ketones Urine Blood Urine Nitrite Urine Bilirubin Urine Urobilinogen Ur Leukocyte Esterase Urine WBC (Auto) Urine RBC (Auto) U Hyaline Cast (Auto) U Epithel Cells (Auto) Urine Bacteria (Auto) Urine Yeast COVID-19 Eval Order SARS-CoV-2 (PCR) 08/16/21 08/16/21 08/16/21 17:30 17:30 17:30 WBC RBC Hgb Hct MCV MCH MCHC RDW Std Deviation RDW Coeff of Wil Plt Count MPV Immature Gran % (Auto) Neut % (Auto) Lymph % (Auto) [place] % (Auto) Eos % (Auto) Baso % (Auto) Neut # (Auto) Lymph # (Auto) [place] # (Auto) Eos # (Auto) Baso # (Auto) Immature Gran # (Auto) ESR 48 H PT INR APTT PTT Ratio Sodium Potassium Chloride Carbon Dioxide Anion Gap BUN Creatinine Est Cr Clr Drug Dosing Est GFR ( Amer) Est GFR (Non-Af Amer) BUN/Creatinine Ratio Glucose POC Glucose Lactate 1.3 Calcium Magnesium Total Bilirubin AST ALT Alkaline Phosphatase Total Creatine Kinase Troponin I C-Reactive Protein 6.26 H Total Protein Albumin Globulin Albumin/Globulin Ratio Procalcitonin Urine Color Urine Appearance Urine pH Ur Specific [place] Urine Protein Urine Glucose (UA) Urine Ketones Urine Blood Urine Nitrite Urine Bilirubin Urine Urobilinogen Ur Leukocyte Esterase Urine WBC (Auto) Urine RBC (Auto) U Hyaline Cast (Auto) U Epithel Cells (Auto) Urine Bacteria (Auto) Urine Yeast COVID-19 Eval Order SARS-CoV-2 (PCR) 08/16/21 08/16/21 08/16/21 18:00 21:51 23:34 WBC RBC Hgb Hct MCV MCH MCHC RDW Std Deviation RDW Coeff of Wil Plt Count MPV Immature Gran % (Auto) Neut % (Auto) Lymph % (Auto) [place] % (Auto) Eos % (Auto) Baso % (Auto) Neut # (Auto) Lymph # (Auto) [place] # (Auto) Eos # (Auto) Baso # (Auto) Immature Gran # (Auto) ESR PT INR APTT PTT Ratio Sodium Potassium Chloride Carbon Dioxide Anion Gap BUN Creatinine Est Cr Clr Drug Dosing Est GFR ( Amer) Est GFR (Non-Af Amer) BUN/Creatinine Ratio Glucose POC Glucose 174 H Lactate Calcium Magnesium Total Bilirubin AST ALT Alkaline Phosphatase Total Creatine Kinase Troponin I 0.060 H* C-Reactive Protein Total Protein Albumin Globulin Albumin/Globulin Ratio Procalcitonin 0.05 Urine Color Urine Appearance Urine pH Ur Specific [place] Urine Protein Urine Glucose (UA) Urine Ketones Urine Blood Urine Nitrite Urine Bilirubin Urine Urobilinogen Ur Leukocyte Esterase Urine WBC (Auto) Urine RBC (Auto) U Hyaline Cast (Auto) U Epithel Cells (Auto) Urine Bacteria (Auto) Urine Yeast COVID-19 Eval Order SARS-CoV-2 (PCR) 08/17/21 08/17/21 08/17/21 01:20 06:40 06:40 WBC 4.81 RBC 3.34 L Hgb 9.5 L Hct 30.1 L MCV 90.1 MCH 28.4 MCHC 31.6 L RDW Std Deviation 51.3 H RDW Coeff of Wil 15.9 H Plt Count 280 MPV 9.7 Immature Gran % (Auto) 0.4 Neut % (Auto) 54.7 Lymph % (Auto) 26.6 [place] % (Auto) 14.1 Eos % (Auto) 2.3 Baso % (Auto) 1.9 Neut # (Auto) 2.63 Lymph # (Auto) 1.28 [place] # (Auto) 0.68 H Eos # (Auto) 0.11 Baso # (Auto) 0.09 Immature Gran # (Auto) 0.02 ESR PT INR APTT PTT Ratio Sodium 130 L Potassium 4.0 Chloride 104 Carbon Dioxide 21 Anion Gap 5.0 BUN 13 Creatinine 1.01 Est Cr Clr Drug Dosing 143.3 Est GFR ( Amer) 98.0 Est GFR (Non-Af Amer) 84.5 BUN/Creatinine Ratio 13.4 Glucose 237 H POC Glucose 270 H Lactate Calcium 8.5 Magnesium Total Bilirubin AST ALT Alkaline Phosphatase Total Creatine Kinase Troponin I C-Reactive Protein Total Protein Albumin Globulin Albumin/Globulin Ratio Procalcitonin Urine Color Urine Appearance Urine pH Ur Specific [place] Urine Protein Urine Glucose (UA) Urine Ketones Urine Blood Urine Nitrite Urine Bilirubin Urine Urobilinogen Ur Leukocyte Esterase Urine WBC (Auto) Urine RBC (Auto) U Hyaline Cast (Auto) U Epithel Cells (Auto) Urine Bacteria (Auto) Urine Yeast COVID-19 Eval Order SARS-CoV-2 (PCR) 08/17/21 08:18 WBC RBC Hgb Hct MCV MCH MCHC RDW Std Deviation RDW Coeff of Wil Plt Count MPV Immature Gran % (Auto) Neut % (Auto) Lymph % (Auto) [place] % (Auto) Eos % (Auto) Baso % (Auto) Neut # (Auto) Lymph # (Auto) [place] # (Auto) Eos # (Auto) Baso # (Auto) Immature Gran # (Auto) ESR PT INR APTT PTT Ratio Sodium Potassium Chloride Carbon Dioxide Anion Gap BUN Creatinine Est Cr Clr Drug Dosing Est GFR ( Amer) Est GFR (Non-Af Amer) BUN/Creatinine Ratio Glucose POC Glucose 235 H Lactate Calcium Magnesium Total Bilirubin AST ALT Alkaline Phosphatase Total Creatine Kinase Troponin I C-Reactive Protein Total Protein Albumin Globulin Albumin/Globulin Ratio Procalcitonin Urine Color Urine Appearance Urine pH Ur Specific [place] Urine Protein Urine Glucose (UA) Urine Ketones Urine Blood Urine Nitrite Urine Bilirubin Urine Urobilinogen Ur Leukocyte Esterase Urine WBC (Auto) Urine RBC (Auto) U Hyaline Cast (Auto) U Epithel Cells (Auto) Urine Bacteria (Auto) Urine Yeast COVID-19 Eval Order SARS-CoV-2 (PCR) Diagnostic Findings Venous duplex of the right lower extremity could not exclude thrombus in the right popliteal vein. Chest x-ray suggestive of cardiomegaly and mild pulmonary edema. ECG Additional Comments: With diffuse T-wave inversions in minor ST segment changes PG Care Time/CCT Total # of Minutes Spent Total Time Spent with Patient: Total time spent is greater than 50% in coordination of care (as documented) at patient's floor/unit and/or counseling patient: Coding Level of Care Code 00563 Office/OBS Consult Lvl 4 Diagnoses Elevated troponin R77.8 Acute electrocardiogram changes R94.31 Diabetes type 2, uncontrolled E11.65
--- NOTE | 2021-08-17 11:14 | Electrocardiogram Report ---
Test Reason : Blood Pressure : / mmHG Vent. Rate : 090 BPM Atrial Rate : 090 BPM P-R Int : 196 ms QRS Dur : 098 ms QT Int : 408 ms P-R-T Axes : 071 051 107 degrees QTc Int : 499 ms Normal sinus rhythm Low voltage QRS Prolonged QT Abnormal ECG When compared with ECG of 16-AUG-2021 16:19, Inverted T waves have replaced nonspecific T wave abnormality in Anterior leads Confirmed by Neri Espitia ([id number]) on 08/17/2021 11:14:35 AM Referred By: REFERRED SELF Confirmed By:Doron Espitia
--- NOTE | 2021-08-17 14:50 | XCELERA ---
[id number]
--- NOTE | 2021-08-17 18:02 | Billing Data ---
Date of Service August 17, 2021 Coding Level of Care Code 54963 Subseq Hosp Care Lvl 3
--- NOTE | 2021-08-17 18:04 | Billing Data ---
Date of Service August 17, 2021 Coding Level of Care Code 15662 Subseq Hosp Care Lvl 3
--- NOTE | 2021-08-17 20:19 | Billing Data ---
Date of Service August 17, 2021 Coding Level of Care Code 55741 Initial Inpt Care Lvl 3
[2021-08-17] MEDS: PANTOprazole 40 MG TAB PO SCH (20:45)
[2021-08-18] MEDS: AZTREONAM 2,000 MG in DEXTROSE 5% 100 ML IV SCH ×3 (00:05→17:24)
[2021-08-18 06:53] LABS: Basophils # (auto) 0.07 K/uL (0-0.2); Eosinophils # (auto) 0.09 K/uL (0-0.5); Eosinophils % (auto) 1.3 %; Hematocrit (blood only) 28.5 % (42-52); Hemoglobin 9.2 g/dL (14.0-18.0); Immature Granulocytes # (auto) 0.02 K/uL (0.00-0.02); Immature Granulocytes % (auto) 0.3 %; Lymphocytes % (auto) 24.6 %; Mean Corpuscular Hemoglobin 29.5 pg (25-34); Mean Corpuscular Hgb Conc 32.3 g/dL (32-36); Mean Corpuscular Volume 91.3 fL (80-100); Mean Platelet Volume 8.9 fL (7.4-10.4); Monocytes % (auto) 11.6 %; Neutrophils # (auto) 4.24 K/uL (1.4-6.5); Neutrophils % (auto) 61.2 %; Platelet Count 404 K/uL (130-400); RDW Standard Deviation 52.6 fL (36.4-46.3); Red Blood Count 3.12 M/uL (4.7-6.1); White Blood Count 6.92 K/uL (4.8-10.8)
[2021-08-18 07:14] LABS: BUN Creatinine Ratio 13.7 (10-20); Creatinine Clr Calc Pharmacy 151.2 ml/min; Est GFR (African American) 104.2 ml/min; Est GFR (Non-African American) 89.9 ml/min; Magnesium 2.1 mg/dl (1.8-2.4); Phosphorus 3.4 mg/dl (2.5-4.9)
[2021-08-18] MEDS: INSULIN ASPART 100 UNITS/ML 3 ML PEN SC SCH ×4 (08:04→21:05)
[2021-08-18] MEDS: ASPIRIN 81 MG ECTAB PO SCH (08:06)
[2021-08-18] MEDS: FUROSEMIDE 20 MG TAB PO SCH (08:07)
[2021-08-18] MEDS: MULTIVITAMIN TAB PO SCH (08:08)
[2021-08-18] MEDS: METOPROLOL TARTRATE 50 MG TAB PO SCH ×2 (08:08→21:40)
[2021-08-18] MEDS: lisinopril 2.5 MG TAB PO SCH (08:08)
[2021-08-18] MEDS: PANTOprazole 40 MG TAB PO SCH ×2 (08:09→21:40)
--- NOTE | 2021-08-18 08:09 | Hospitalist Progress Note ---
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 RLE swelling and cellulitis: - Recent history of, was on vancomycin -> Linezolid for total therapy of [address] [facility], and completed his course on 08/15. - His RLE redness and pain getting worse, erythema has extended past the marker line drawn by [facility] provider during recent admission. - Not presenting septic this admission. - RLE venous Doppler with chronic DVT but no acute DVT. No findings that suggest PE. Patient is non-tachycardic and saturating well on room air. - Continue Daptomycin and Aztreonam, which will also cover MRSA/Pseudomonas -- consider double pseudomonas coverage if not improving/worsening within 48-72 hours of abx - Blood cultures NGTD after 24h, WBC stably WNL EKG changes, elevated troponin: - Patient was recently admitted with a troponin of 18, felt by ICU to be due to severe sepsis and septic shock. - Echocardiogram at [facility] with EF 50-54%, no wall motion abnormalities. - Troponin elevated on admission to 0.065; EKG performed which shows new T wave inversions in aVL and V2 not present on 07/31 EKG. - Trending troponin: 0.060 --> undetectable --> 0.031 --> 0.030 - Patient is asymptomatic (no chest pain or anginal equivalents) - No indication for heparin gtt - Medical risk reduction: - add on metoprolol tartrate 50mg BID - continue lisinopril, daily ASA - Increase rosuvastatin to 20mg daily - Cardiology consult: - No urgent indication for angiography or other coronary evaluation. - However, will likely benefit from stress testing (probably nuclear given habitus). Can be done outpatient in absence of new symptoms. Blood loss anemia: - Blood loss secondary to duodenal ulcer that was bleeding but had stopped by the time EGD was performed. - Hgb 8.7 on admission; on d/c from [facility] on 08/13 Hgb was 9.0 -- continues stable on rechecks - Continue PPI IV BID, famotidine IV daily - Defer GI consult for now as patient is not actively bleeding DM2: - A1c of 8/5% on 08/02. - Lantus 10u BID with sliding scale; titrate based on BSGs. - DM2 diet. Depression, anxiety: - Continue home medications. Code Status: FULL CODE FEN: Heart healthy, low sodium, DM2 diet DVT ppx: SCD knee bilateral given no acute DVT Dispo: Telemetry Admission and Anticipated Discharge Date Admission Date: August 16, 2021 Supervising Physician Co-Signing Physician Notes I personally examined the patient and verified all spear points of history and exam, discussed case, and agree with decision making with Dr Ewing. Generally feeling about the same. Worried about losing his leg. Notes a little bit of ankle pain in the front. Wonders about the status of his stomach and heart. Asks very good questions, which myself and Dr. Ewing answered to the best of our ability. Vitals noted, in general he is pleasant does appear fatigued, but is watching the LS9 game, and is kind enough to turn on the TV to try to find the Deep Domain score for me as well as I am examining him. No distress. HEENT normocephalic atraumatic mucous membranes moist. Breathing unlabored no accessory muscle use good effort. Right lower extremity with diffuse venous stasis changes, and at about his proximal harkins may be two thirds of the way up, very dull erythema improved from yesterday, thickness and tenderness mostly medial wrapping around the posterior, just above the line that was initially drawn, but probably receded in size, definitely receded in intensity and tenderness from yesterdayreoutlined. Diffuse venous stasis swelling the rest of his right lower extremity, including his anklewhich is tender a little bit anteriorly, but it feels much more like skin edema than a joint effusion, the joint itself does not feel to be swollen, red, etc. Ulcer fifth toe without exudate Recurrent leg cellulitisfortunately does not appear to be septic this timehe had a terrible course of sepsis recently, but fortunately this does not appear to be repeating itself. He has no crepitus, his vitals and labs are quite reassuring overall, and while the overall area of the erythema does not appear to have really changed much, the intensity/redness/tenderness is definitely improved. Given diabetes/open wound/venous stasis/recent hospitalizationcontinuing daptomycin and aztreonam to cover for resistant gram- positive's, and nosocomial gram-negative'sand probably given his recent history will need to continue this a little bit longer than the severity of the infection currently seems to requirebut he is showing improvement, hopefully home soon. Peptic ulcer diseaseno acute bleed, on PPI. EKG changes/elevated troponinlast hospital stay may have just been diffuse watershed/demand ischemia, but given his risks, and given degree of dynamic EKG changes noted here, we are medically managing as though he has coronary disease pending a nuclear medicine stress test which will be arranged as an outpatient DVT prophylaxiscertainly has risk for clotting, has risk for bleedingbut given that his hemoglobin is stable, his stomach ulcer is under treatment, he has no upper GI symptomsreasonable to give cautious trial to heparin subcu for DVT prophylaxisDVT would definitely be an unfortunate complicating factor requiring either intervention or full dose anticoagulation with his peptic ulcer, whereas prophylaxis is unlikely to cause bleeding, very likely to prevent clot, and with heparin subcu, it would be short off and very reversible, if needed Otherwise as above Subjective No acute events overnight. Patient reports that he still does not feel very well. Pain in his leg continues. No fever, chills, nausea, vomiting, abdominal pain, headaches, shortness of breath, chest pain. Patient does report that he feels the need to have a BM but is uncertain whether it will be a viable option for him to use the bedpan. He is willing to try ambulation from the bed to bedside toilet with help. Discussed getting PT/OT to evaluate prior to this, patient is amenable. Review of Systems Review of Systems: per subjective Physical Exam Constitutional: WD/WN, vitals as above Eyes: PERRL, conjunctivae normal, anicteric sclerae ENMT: external ear and nose normal, oropharynx normal Neck: normal visual inspection Respiratory: normal respiratory effort, lungs clear to auscultation Cardiovascular: RRR, no murmur, no edema Rate/Rhythm: regular rate and regular rhythm Heart Sounds: no murmur Extremities: + edema Gastrointestinal (Abdomen): normal bowel sounds, soft, nontender, no hepatosplenomegaly Musculoskeletal: no cyanosis or clubbing, extremities motor strength 5/5 Skin: Right lower extremity with stable venous stasis changes and redness that is partially above the marker line from prior discharge. This seems stable from yesterday, no progression of cellulitic changes. Remains TTP. Psychiatric: A+Ox3, euthymic affect Results & Data Results & Data ([facility]) Vital Signs (Past 12 Hours) Vital Signs Temp Pulse Pulse Resp BP Pulse Ox 08/18/21 08:00 36.5 C 78 18 115/73 99 08/18/21 04:00 36.5 C 72 19 146/86 H 95 08/18/21 00:11 36.6 C 71 19 148/77 H 94 08/17/21 22:26 74 08/17/21 20:13 36.6 C 81 18 154/81 H 94 Resident Activity Tracking Resident Involvement: Resident Care Provided Care Provided: Adult Hospital Medicine
[2021-08-18] MEDS: GABAPENTIN 600 MG TAB PO SCH (08:10)
[2021-08-18] MEDS: ROSUVASTATIN CALCIUM 20 MG TAB PO SCH (08:10)
[2021-08-18] MEDS: INSULIN GLARGINE SOLOSTAR 100 UNITS/ML 3 ML PEN SC SCH ×2 (08:13→21:06)
[2021-08-18] MEDS ORDERED: HYDROmorphone INJ 0.5 MG/0.5 ML SYR IV PRN (14:01)
[2021-08-18] MEDS ORDERED: oxyCODONE HCL IR 5 MG TAB (IMMEDIATE RELEASE) PO PRN (14:01)
[2021-08-18] MEDS: HEPARIN SOD 5,000 UNIT/0.5 ML VIAL SQ SCH ×2 (15:16→21:41)
--- NOTE | 2021-08-18 15:46 | Billing Data ---
Date of Service August 18, 2021 Coding Level of Care Code 66470 Subseq Hosp Care Lvl 3
[2021-08-18] MEDS: TOPIRAMATE 25 MG TAB PO SCH (21:40)
[2021-08-18] MEDS: DAPTOmycin 500 MG in SYRINGE 0 ML IV SCH (21:44)
[2021-08-19] MEDS: AZTREONAM 2,000 MG in DEXTROSE 5% 100 ML IV SCH ×3 (00:59→18:07)
[2021-08-19] MEDS: ACETAMINOPHEN 325 MG TAB PO PRN ×2 (02:08→19:55)
[2021-08-19] MEDS: HEPARIN SOD 5,000 UNIT/0.5 ML VIAL SQ SCH ×3 (05:18→21:32)
[2021-08-19 07:06] LABS: Basophils # (auto) 0.09 K/uL (0-0.2); Basophils % (auto) 1.3 %; Eosinophils # (auto) 0.11 K/uL (0-0.5); Eosinophils % (auto) 1.6 %; Hematocrit (blood only) 26.9 % (42-52); Hemoglobin 8.4 g/dL (14.0-18.0); Immature Granulocytes # (auto) 0.03 K/uL (0.00-0.02); Immature Granulocytes % (auto) 0.4 %; Lymphocytes # (auto) 2.16 K/uL (1.2-3.4); Mean Corpuscular Hemoglobin 28.6 pg (25-34); Mean Corpuscular Hgb Conc 31.2 g/dL (32-36); Mean Corpuscular Volume 91.5 fL (80-100); Mean Platelet Volume 8.8 fL (7.4-10.4); Monocytes # (auto) 0.83 K/uL (0.11-0.59); Monocytes % (auto) 12.3 %; Neutrophils # (auto) 3.54 K/uL (1.4-6.5); Neutrophils % (auto) 52.4 %; Platelet Count 389 K/uL (130-400); RDW Coefficient of Variation 15.8 % (11.5-14.5); RDW Standard Deviation 51.9 fL (36.4-46.3); Red Blood Count 2.94 M/uL (4.7-6.1); White Blood Count 6.76 K/uL (4.8-10.8)
[2021-08-19 07:55] LABS: BUN Creatinine Ratio 15.3 (10-20); Calcium 8.9 mg/dl (8.5-10.1); Creatinine Clr Calc Pharmacy 144.1 ml/min; Est GFR (African American) 99.2 ml/min; Est GFR (Non-African American) 85.5 ml/min; Magnesium 1.9 mg/dl (1.8-2.4); Phosphorus 3.8 mg/dl (2.5-4.9); Potassium 3.9 mmol/L (3.5-5.1)
--- NOTE | 2021-08-19 08:16 | Hospitalist Progress Note ---
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 with discharge 08/13/21 for sepsis 2/2 RLE cellulitis and upper GIB admitted for worsening RLE cellulitis and concern for EKG changes with persistent elevation in troponin. RLE swelling and cellulitis: - Recent history of, was on vancomycin -> Linezolid for total therapy of 14 days through [facility], and completed his course on 08/15. - His RLE redness and pain getting worse, erythema has extended past the marker line drawn by [facility] provider during recent admission. - RLE venous Doppler with chronic DVT but no acute DVT. No findings that suggest PE. Patient is non-tachycardic and saturating well on room air. - Continue Daptomycin and Aztreonam, which will also cover MRSA/Pseudomonas - ID consulted regarding duration of therapy - Blood cultures NGTD after 24h, WBC stably WNL EKG changes, elevated troponin: - Patient was recently admitted with a troponin of 18, felt by ICU to be due to severe sepsis and septic shock. - Echocardiogram at [facility] with EF 50-54%, no wall motion abnormalities. - Troponin elevated on admission to 0.065; EKG performed which shows new T wave inversions in aVL and V2 not present on 07/31 EKG. - Trending troponin: 0.060 --> undetectable --> 0.031 --> 0.030 - Patient is asymptomatic (no chest pain or anginal equivalents) - No indication for heparin gtt - Medical risk reduction: - add on metoprolol tartrate 50mg BID - continue lisinopril, daily ASA - Increase rosuvastatin to 20mg daily - Cardiology consult: - No urgent indication for angiography or other coronary evaluation. - However, will likely benefit from stress testing (probably nuclear given habitus). Can be done outpatient in absence of new symptoms. Blood loss anemia: - Blood loss secondary to duodenal ulcer that was bleeding but had stopped by the time EGD was performed. - Hgb 8.7 on admission; on d/c from [facility] on 10/26 Hgb was 9.0 -- continues stable on rechecks - Continue PPI IV BID, famotidine IV daily - Defer GI consult for now as patient is not actively bleeding - Trend daily CBC DM2 - A1c of 8/5% on 08/02. - Lantus 10u BID with sliding scale; titrate based on BSGs. - DM2 diet. Depression, anxiety - Continue home medications. FEN: heart-healthy, low sodium, DM2 diet Code status: full code DVT ppx: SCD knee Consults: cardiology Dispo: med/surg telemetry Admission and Anticipated Discharge Date Admission Date: August 16, 2021 Results & Data Results & Data ([facility]) Vital Signs (Past 12 Hours) Vital Signs Temp Pulse Pulse Resp BP Pulse Ox 08/19/21 07:27 36.6 C 63 20 136/76 97 08/18/21 23:55 36.3 C L 68 19 108/64 95 08/18/21 23:25 60 Resident Activity Tracking Resident Involvement: Resident Care Provided Care Provided: Adult Hospital Medicine
[2021-08-19] MEDS: INSULIN ASPART 100 UNITS/ML 3 ML PEN SC SCH ×4 (09:39→20:14)
[2021-08-19] MEDS: PANTOprazole 40 MG TAB PO SCH ×2 (09:41→20:19)
[2021-08-19] MEDS: METOPROLOL TARTRATE 50 MG TAB PO SCH ×2 (09:41→20:18)
[2021-08-19] MEDS: GABAPENTIN 600 MG TAB PO SCH (09:42)
[2021-08-19] MEDS: MULTIVITAMIN TAB PO SCH (09:42)
[2021-08-19] MEDS: FUROSEMIDE 20 MG TAB PO SCH (09:42)
[2021-08-19] MEDS: lisinopril 2.5 MG TAB PO SCH (09:42)
[2021-08-19] MEDS: ROSUVASTATIN CALCIUM 20 MG TAB PO SCH (09:42)
[2021-08-19] MEDS: INSULIN GLARGINE SOLOSTAR 100 UNITS/ML 3 ML PEN SC SCH ×2 (09:42→20:18)
[2021-08-19] MEDS: ASPIRIN 81 MG ECTAB PO SCH (09:43)
[2021-08-19] MEDS: TOPIRAMATE 25 MG TAB PO SCH (20:19)
[2021-08-19] MEDS: DAPTOmycin 500 MG in SYRINGE 0 ML IV SCH (21:31)
[2021-08-20] MEDS: AZTREONAM 2,000 MG in DEXTROSE 5% 100 ML IV SCH ×3 (01:31→16:13)
[2021-08-20] MEDS: ACETAMINOPHEN 325 MG TAB PO PRN ×3 (03:09→17:09)
[2021-08-20] MEDS: HEPARIN SOD 5,000 UNIT/0.5 ML VIAL SQ SCH ×3 (06:29→21:11)
[2021-08-20 06:54] LABS: Basophils # (auto) 0.07 K/uL (0-0.2); Basophils % (auto) 1.1 %; Eosinophils # (auto) 0.08 K/uL (0-0.5); Eosinophils % (auto) 1.3 %; Hemoglobin 8.5 g/dL (14.0-18.0); Immature Granulocytes # (auto) 0.04 K/uL (0.00-0.02); Immature Granulocytes % (auto) 0.6 %; Lymphocytes # (auto) 1.77 K/uL (1.2-3.4); Mean Corpuscular Hemoglobin 29.3 pg (25-34); Mean Corpuscular Hgb Conc 32.7 g/dL (32-36); Mean Corpuscular Volume 89.7 fL (80-100); Mean Platelet Volume 8.7 fL (7.4-10.4); Monocytes # (auto) 0.77 K/uL (0.11-0.59); Monocytes % (auto) 12.2 %; Neutrophils # (auto) 3.59 K/uL (1.4-6.5); Neutrophils % (auto) 56.8 %; Platelet Count 400 K/uL (130-400); RDW Standard Deviation 51.5 fL (36.4-46.3); White Blood Count 6.32 K/uL (4.8-10.8)
[2021-08-20] MEDS: METOPROLOL TARTRATE 50 MG TAB PO SCH ×2 (08:04→21:11)
[2021-08-20] MEDS: PANTOprazole 40 MG TAB PO SCH ×2 (08:04→21:08)
[2021-08-20] MEDS: lisinopril 2.5 MG TAB PO SCH (08:05)
[2021-08-20] MEDS: ASPIRIN 81 MG ECTAB PO SCH (08:05)
[2021-08-20] MEDS: MULTIVITAMIN TAB PO SCH (08:05)
[2021-08-20] MEDS: FUROSEMIDE 20 MG TAB PO SCH (08:05)
[2021-08-20] MEDS: ROSUVASTATIN CALCIUM 20 MG TAB PO SCH (08:05)
[2021-08-20] MEDS: GABAPENTIN 600 MG TAB PO SCH (08:06)
[2021-08-20] MEDS: INSULIN GLARGINE SOLOSTAR 100 UNITS/ML 3 ML PEN SC SCH ×2 (08:06→21:12)
[2021-08-20] MEDS: INSULIN ASPART 100 UNITS/ML 3 ML PEN SC SCH ×4 (08:07→21:14)
--- NOTE | 2021-08-20 08:54 | Hospitalist Progress Note ---
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 RLE cellulitis - Recent history of cellulitis: was on vancomycin -> linezolid for total therapy of 14 days (at [facility]); completed his course on 08/15. - RLE redness and swelling continue to gradually improve - RLE doppler shows chronic DVT but no acute DVT; no findings that suggest PE, patient is non-tachycardic and saturating well on room air. - Continue daptomycin and aztreonam, which will also cover MRSA/Pseudomonas - ID consulted regarding duration of therapy, awaiting recommendations - Blood cultures NGTD after 24h, WBC wnl EKG changes, elevated troponin - Patient was recently admitted with a troponin of 18, felt by ICU to be due to severe sepsis and septic shock - Echocardiogram at [facility] with EF 50-54%, no wall motion abnormalities - Troponin elevated on admission to 0.065; EKG performed which shows new T wave inversions in aVL and V2 not present on 07/31 EKG - Trending troponin: 0.060 --> undetectable --> 0.031 --> 0.030 - Patient is asymptomatic (no chest pain or anginal equivalents) - No indication for heparin gtt - Medical risk reduction with metoprolol, lisinopril, ASA - Statin therapy escalated to rosuvastatin 20mg qd - Cardiology consult: - No urgent indication for angiography or other coronary evaluation - However, will likely benefit from outpatient stress testing (probably nuclear given habitus) Blood loss anemia - Patient with a history of blood loss secondary to duodenal ulcer - Hgb upon discharge from [facility] (08/13) was 9.0 -- Hgb continues to be stable on rechecks - Continue PPI IV, famotidine IV - Defer GI consult for now as patient is not actively bleeding - Trend daily H/H given ongoing heparin therapy DM2 - A1c of 8/5% on 08/02. - Lantus 10u BID with sliding scale; titrate based on BSG - DM2 diet HTN - BP well-controlled at this time - Continue lisinopril, furosemide HLD - Continue rosuvastatin Depression, anxiety - Continue home medications FEN: heart-healthy, low sodium, DM2 diet Code status: full code DVT ppx: heparin Consults: cardiology Dispo: med/surg telemetry Admission and Anticipated Discharge Date Admission Date: August 16, 2021 Supervising Physician Co-Signing Physician Notes Patient seen and examined with PGY-2 Dr. Lucero. Agree with history, exam findings, assessment and plan of care as outlined. In brief, Mr. Bejarano is a 51 year old male with history of DM (on insulin) with hx of Left BKA, HTN, HLD, recurrent DVT (not ACed) admitted with worsening right lower extremity cellulitis. Doing well today. Feels that the redness and leg pain is significantly improved. No fevers, chills. Vital signs and nursing notes reviewed. Right lower extremity with some tenderness of the lateral calf, but improved compared to yesterday. Erythema and dusky appearing skin color is receded distal to the marked line. Skin with woody texture. Labs and imaging reviewed. 1.RLE cellulitis. Completed recent vanc/linezolid course x 14 days. No acute DVT on Doppler. Continue dapto and aztreonam. Blood cultures without growth. ID consult re: length of antibiotic course. 2.Elevated troponin with new T wave inversion. Troponins trending down. Started metoprolol 50mg BID. Continue home Lisinopril, ASA. Increased crestor to 20mg. Consider outpatient stress test. Appreciate cardiology recommendations. 3.Blood loss anemia. IV Protonix BID, famotidine daily. Hbg is relatively stable. 4.DM. A1C 8.5%. Lantus 10U BID. Dispo: pending ID consult and length of antibiotic course recommendations. Subjective No acute events overnight. Patient feels "not too bad" today and notes an improvement in his RLE swelling and pain. No fever, chills, nausea, vomiting, abdominal pain, headaches, shortness of breath, chest pain. No new concerns today. Review of Systems Review of Systems: See HPI Physical Exam Physical Exam: Constitutional: well-appearing, no acute distress CV: regular rhythm, no murmur appreciated, extremities well-perfused, RLE with 1+ pitting edema Resp: CTABL, no wheezes/rales/rhonchi appreciated, no increased work of breathing MSK: LLE amputated Skin: RLE with erythema up to the mid-calf, improved from yesterday; RLE minimally tender to palpation, slightly warm to touch, no open sores, no exudate or blood noted Neuro: AOx4, no focal neurological deficits appreciated Results & Data Results & Data ([facility]) Vital Signs (Past 12 Hours) Vital Signs Temp Pulse Pulse Resp BP Pulse Ox 08/20/21 07:22 36.3 C L 62 20 117/75 97 08/20/21 02:49 36.5 C 62 18 128/70 95 08/19/21 23:01 36.8 C 70 20 135/74 96 08/19/21 22:19 62 Resident Activity Tracking Resident Involvement: Resident Care Provided Care Provided: Adult [facility] Medicine
[2021-08-20 10:06] LABS: Calcium 9.1 mg/dl (8.5-10.1); Creatinine Clr Calc Pharmacy 150.1 ml/min; Est GFR (African American) 104.2 ml/min; Est GFR (Non-African American) 89.9 ml/min; Potassium 4.1 mmol/L (3.5-5.1)
[2021-08-20] MEDS: VENLAFAXINE HCL XR 75 MG CAPXR PO SCH (13:06)
[2021-08-20] MEDS: FLUoxetine HCL 20 MG CAP PO SCH (13:07)
[2021-08-20] MEDS ORDERED: DOXEPIN HCL 10 MG CAPSULE PO SCH (21:00)
[2021-08-20] MEDS: TOPIRAMATE 25 MG TAB PO SCH (21:08)
[2021-08-20] MEDS: DAPTOmycin 500 MG in SYRINGE 0 ML IV SCH (21:11)
[2021-08-21] MEDS: AZTREONAM 2,000 MG in DEXTROSE 5% 100 ML IV SCH ×2 (00:46→08:10)
[2021-08-21] MEDS: HEPARIN SOD 5,000 UNIT/0.5 ML VIAL SQ SCH ×2 (05:53→14:37)
--- NOTE | 2021-08-21 07:08 | Hospitalist Progress Note ---
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 RLE cellulitis - Recent history of cellulitis: was on vancomycin -> linezolid for total therapy of 14 days (at [facility]); completed his course on 08/15. - RLE redness and swelling continue to gradually improve - RLE doppler shows chronic DVT but no acute DVT; no findings that suggest PE, patient is non-tachycardic and saturating well on room air. - Continue daptomycin and aztreonam, which will also cover MRSA/Pseudomonas - ID consulted regarding duration of therapy, awaiting recommendations - Blood cultures NGTD after 24h, WBC wnl EKG changes, elevated troponin - Patient was recently admitted with a troponin of 18, felt by ICU to be due to severe sepsis and septic shock - Echocardiogram at [facility] with EF 50-54%, no wall motion abnormalities - Troponin elevated on admission to 0.065; EKG performed which shows new T wave inversions in aVL and V2 not present on 07/31 EKG - Trending troponin: 0.060 --> undetectable --> 0.031 --> 0.030 - Patient is asymptomatic (no chest pain or anginal equivalents) - No indication for heparin gtt - Medical risk reduction with metoprolol, lisinopril, ASA - Statin therapy escalated to rosuvastatin 20mg qd - Cardiology consult: - No urgent indication for angiography or other coronary evaluation - However, will likely benefit from outpatient stress testing (probably nuclear given habitus) Blood loss anemia - Patient with a history of blood loss secondary to duodenal ulcer - Hgb upon discharge from [facility] (08/13) was 9.0 -- Hgb continues to be stable on rechecks - Continue PPI IV, famotidine IV - Defer GI consult for now as patient is not actively bleeding - Trend daily H/H given ongoing heparin therapy DM2 - A1c of 8/5% on 08/02. - Lantus 10u BID with sliding scale; titrate based on BSG - DM2 diet HTN - BP well-controlled at this time - Continue lisinopril, furosemide HLD - Continue rosuvastatin Depression, anxiety - Continue home medications FEN: heart-healthy, low sodium, DM2 diet Code status: full code DVT ppx: heparin Consults: cardiology Dispo: med/surg telemetry Admission and Anticipated Discharge Date Admission Date: August 16, 2021 Results & Data Results & Data ([facility]) Vital Signs (Past 12 Hours) Vital Signs Temp Pulse Pulse Resp BP BP Pulse Ox 08/21/21 03:00 36.5 C 72 20 110/65 93 08/20/21 22:20 72 08/20/21 22:00 37 C 75 20 116/69 95 08/20/21 21:15 119/66
[2021-08-21] MEDS: MULTIVITAMIN TAB PO SCH (08:10)
[2021-08-21] MEDS: VENLAFAXINE HCL XR 75 MG CAPXR PO SCH (08:10)
[2021-08-21] MEDS: METOPROLOL TARTRATE 50 MG TAB PO SCH (08:10)
[2021-08-21] MEDS: PANTOprazole 40 MG TAB PO SCH (08:10)
[2021-08-21] MEDS: FLUoxetine HCL 20 MG CAP PO SCH (08:10)
[2021-08-21] MEDS: lisinopril 2.5 MG TAB PO SCH (08:10)
[2021-08-21] MEDS: GABAPENTIN 600 MG TAB PO SCH (08:10)
[2021-08-21] MEDS: FUROSEMIDE 20 MG TAB PO SCH (08:10)
[2021-08-21] MEDS: ROSUVASTATIN CALCIUM 20 MG TAB PO SCH (08:10)
[2021-08-21] MEDS: ASPIRIN 81 MG ECTAB PO SCH (08:10)
[2021-08-21] MEDS: INSULIN GLARGINE SOLOSTAR 100 UNITS/ML 3 ML PEN SC SCH (08:13)
[2021-08-21] MEDS: INSULIN ASPART 100 UNITS/ML 3 ML PEN SC SCH ×2 (08:14→12:08)
[2021-08-21] MEDS: ACETAMINOPHEN 325 MG TAB PO PRN (08:26)
[2021-08-21 08:50] LABS: Basophils # (auto) 0.06 K/uL (0-0.2); Basophils % (auto) 1.1 %; Eosinophils # (auto) 0.12 K/uL (0-0.5); Eosinophils % (auto) 2.1 %; Hematocrit (blood only) 28.3 % (42-52); Immature Granulocytes # (auto) 0.04 K/uL (0.00-0.02); Immature Granulocytes % (auto) 0.7 %; Lymphocytes # (auto) 1.69 K/uL (1.2-3.4); Lymphocytes % (auto) 29.8 %; Mean Corpuscular Hemoglobin 29.1 pg (25-34); Mean Corpuscular Hgb Conc 31.8 g/dL (32-36); Mean Corpuscular Volume 91.6 fL (80-100); Mean Platelet Volume 8.7 fL (7.4-10.4); Monocytes # (auto) 0.49 K/uL (0.11-0.59); Monocytes % (auto) 8.6 %; Neutrophils # (auto) 3.27 K/uL (1.4-6.5); Neutrophils % (auto) 57.7 %; Platelet Count 388 K/uL (130-400); RDW Coefficient of Variation 16.6 % (11.5-14.5); RDW Standard Deviation 53.7 fL (36.4-46.3); Red Blood Count 3.09 M/uL (4.7-6.1); White Blood Count 5.67 K/uL (4.8-10.8)
[2021-08-21 09:17] LABS: BUN Creatinine Ratio 16.3 (10-20); Calcium 9.2 mg/dl (8.5-10.1); Creatinine Clr Calc Pharmacy 153.3 ml/min; Est GFR (African American) 105.5 ml/min; Potassium 3.9 mmol/L (3.5-5.1)
[2021-08-21] MEDS ORDERED: INSULIN GLARGINE SOLOSTAR 100 UNITS/ML 3 ML PEN SC ONE (09:30)
--- NOTE | 2021-08-21 12:31 | Discharge Summary ---
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 He presented to the ER today for worsening RLE pain and general malaise worsening since discharge from [facility]. After recent transfer to [facility] he was evaluated by GI there and did have EGD which showed gastritis as well as a nonbleeding linear ulcer with a clean ulcer base (Yves Class III) in the duodenal bulb extending into the first portion of the duodenum. He was continued on IV PPI and transitioned to PO PPI on discharge, with plan to repeat EGD in 8-10 weeks. He does not note bloody BMs since discharge from [facility]. He does note that he has had intermittent diarrhea since his last few days at [facility] which he has continued to have since discharge home. Last night, he had a particularly large episode of diarrhea without blood or melena. He was discharged from [facility] on Linezolid and in total completed 14 days of antibiotics for his RLE cellulits. He and his report that the pain and redness of the leg has worsened since discharge anteriorly, however the patient reports the pain is significantly worse on the posterior leg into the thigh. He was discharged from [facility] with a prescription for 1L O2 as needed, and is to be evaluated for EVITA with a sleep study. Lastly, he did have Echocardiogram at [facility] with reported EF of 50-54% without wall motion abnormality. Patient does not weigh himself at home and so is unsure if he has gained weight since discharge. He has a history of DVT in the past and was on Xarelto until recently, as he recently had GI bleed as described above. In the ER today patient was noted to be afebrile, non-tachycardic, saturating well on room air. CBC noted to have Hgb 8.7 (compared to 08/13 [facility] d/c Hgb of 9.0). Platelets elevated to 437. Troponin elevated to 0.065 (during last admission did have troponin as high as 18 from NSTEMI). Procalcitonin negative, ESR elevated. Urine with yeast, however patient does not report UTI symptoms. COVID 19 negative. CXR performed which showed mild increase in pulmonary edema from last admission. Admission Exam Per Admitting Provider Constitutional: WD/WN, vitals as above Eyes: PERRL, conjunctivae normal, anicteric sclerae ENMT: external ear and nose normal, oropharynx normal Neck: normal visual inspection Respiratory: bibasilar crackles, no wheezes, symmetric chest expansion, no increase work of breathing Cardiovascular: Rate/Rhythm: regular rate and regular rhythm Heart Sounds: no murmur Extremities: + edema Gastrointestinal (Abdomen): normal bowel sounds, soft, nontender, no hepatosplenomegaly Musculoskeletal: no cyanosis or clubbing, extremities motor strength 5/5 Skin: RLE with erythema to 3[address] the harkins; 2+ pitting edema to RLE. Noted to have a wound marker line with erythema crossing the line on right leg. Pain noted to right posterior calf and posterior thigh on palpation. Left BKA. Neurologic: AAOx3, normal speech. Bilateral UE, LE, and face without sensory or motor deficits No tremor. Psychiatric: A+Ox3, euthymic affect Principal Diagnosis Cellulitis Discharge Exam Constitutional: well-appearing, no acute distress CV: regular rhythm, no murmur appreciated, extremities well-perfused, RLE with 1+ pitting edema Resp: CTABL, no wheezes/rales/rhonchi appreciated, no increased work of breathing MSK: LLE amputated Skin: RLE with erythema up to the mid-calf, improved from yesterday; RLE minimally tender to palpation, slightly warm to touch, no open sores, no exudate or blood noted Neuro: AOx4, no focal neurological deficits appreciated Discharge Data Allergies Allergy/AdvReac Type Severity Reaction Status Date / Time clindamycin Allergy Intermediate Hives Verified 08/16/21 16:14 cefepime Allergy Mild RASH-POSSIBLY Verified 08/16/21 16:27 DUE TO CEFEPIME vancomycin AdvReac Intermediate KYE Verified 08/16/21 16:14 SYNDROME piperacillin [From Zosyn] AdvReac Mild skin rash, Verified 08/16/21 16:14 itching, mild tazobactam [From Zosyn] AdvReac Mild skin rash, Verified 08/16/21 16:14 itching, mild Consultations 08/16/21 19:17 ED Decision to Admit Stat 08/16/21 23:44 Consult Cardiology Routine 08/19/21 14:58 Consult Infectious Diseases Routine Ordered Studies 08/16/21 20:22 US venous doppler LE RT Stat Hospital Course (1) Cellulitis of right leg: RLE cellulitis Patient was placed on antibiotic therapy with daptomycin and aztreonam, and patient began to improve clinically. Blood cultures remained negative, and patient's leukocytosis resolved. Patient's RLE improved in terms of swelllng, erythema, and pain. Infectious disease was consulted regarding choice of and duration of therapy given patient's complex PMH; ID recommended a total 14-day course of keflex. Patient was discharged on hospital day six in stable condition with nine days of keflex to complete a total 14-day course. PCP follow-up was recommended, and follow-up with wound care was arranged. Elevated troponin, CAD Patient was noted on admission with a history of NSTEMI two weeks prior to admission. On admission, patient was noted with an elevated troponin. EKG showed new T-wave inversions in aVL and V2 which had not been present on an EKG from 07/31/21. However, patient was asymptomatic from an ACS standpoint. Cardiology was consulted and felt no urgent intervention was indicated, though they did recommend outpatient stress testing, potentially nuclear testing given patient's history of left BKA. Troponin trended downward and became undetectable. Patient's medical regimen was optimized, and rosuvastatin was increased from 5mg to 20mg given patient's history of CAD and DM2. PCP follow-up, and discussion about stress testing, was recommended. 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 Patient was noted to have a mild anemia. Patient's H/H were monitored closely given ongoing heparin therapy, but patient's hemoglobin remained stable throughout this hospitalization. DM2 Patient's home DM2 regimen was held on admission. BSG was controlled with sliding-scale insulin. HbA1c was 8.5% (08/02/21). Patient's home regimen was restarted upon discharge. HTN Patient's BP was well-controlled during this admission. Patient's home regimen was continued during this hospitalization. HLD Patient's home rosuvastatin was increased to 20mg daily, as noted above. Depression, anxiety Patient's home regimen was continued during this hospitalization. Total Time Total Time Spent Total Time Spent (In Minutes): see attending documentation Discharge Plan Discharge Items Patient Disposition: Home - Self-Care Reason For Visit: CELLULITIS, ABNORMAL EKG, ANEMIA Discharge Diagnosis: Cellulitis Activity: Resume your previous activity Non-emergency contact: Primary Care Provider Call non-emergency contact if: your symptoms worsen and you have a fever Follow-up/Referrals: Dayan Reyes RN [Registered Nurse] - (WOUND CARE OFFICE WILL CALL YOU WITH A FOLLOW-UP DISCHARGE APPOINTMENT.) Mike Isidro MD [Primary Care Provider] - 08/29/21 10:15 am Diet: Carb Consistent or DM2, Heart Healthy and Low Sodium (2gm) Addtl Attending Provider Instructions: You were admitted to the hospital for cellulitis. You were treated with IV antibiotics. Your infection continues to improve, and we feel it is safe for you to continue your treatment from home with oral antibiotics. We were unable to discuss your case with our Infectious Disease colleagues prior to your discharge, but we still plan to talk with them. If they recommend we adjust the antibiotic therapy you are going home with, we will contact you right away. A discharge summary will be sent to your primary care physician to ensure continuity of care. Please bring this discharge summary with you to your next office appointment so that your provider can review it at that time. Follow-up appointments: Make a follow-up appointment with your PCP within the next week. It is very important that you follow up with them shortly after discharge from the hospital. We have requested a follow-up appointment with wound care. Keep all your follow-up appointments as already scheduled. If you cannot make an appointment, notify your provider. Medications: Your medication list has been reviewed and reconciled upon discharge to ensure accuracy and continuity of care. An updated list of all your medications is included with your hospital discharge paperwork. Please review this list closely, and make note of any changes. * We sent a new medication called Keflex to your pharmacy. Take Keflex (500mg) one tablet four times daily for nine more days (your last dose will be on August 29; after this, stop taking keflex). * We increased your dose of rosuvastatin (Crestor), which is a cholesterol- lowering medicine. You were previously on 5mg daily. We have increased this to 20mg daily. Take rosuvastatin 20mg one tablet daily by mouth. * A medication called metoprolol was added during your stay here as well. You will take this twice per day. Take metoprolol 25mg twice per day. Take your medications as instructed; do not skip a dose of your medicines. Make sure all of your doctors know every medicine you are taking (including cozl-vrg-yyrqccc medicines, vitamins, and supplements). Call your primary care provider before taking any new medicines (including ecjj-yds-xwyirxw medicines, vitamins, and supplements), because some of these may interact with your current medications, or may make your symptoms worse. Tell your primary care provider if you cannot afford your medications. CONTACT YOUR PRIMARY CARE PROVIDER if you experience any of the following: Worsening leg pain Inability to bear weight on your leg Sweating, abdominal pain, nausea, vomiting Difficulty following your treatment plan, or difficulty taking medications CALL 911 OR GO TO THE EMERGENCY DEPARTMENT if you experience any of the following: Sudden, severe abdominal pain or nausea/vomiting Severe chest pain, or chest pain that radiates (moves) to your jaw or arm Sudden, severe shortness of breath or difficulty breathing Thank you for allowing us to participate in your care. Pending Studies at Discharge: No Stand-Alone Forms: My [facility] Medications and DC Order Prescriptions: New rosuvastatin [Crestor] 20 mg Tablet 20 mg PO DAILY 30 Days Qty: 30 RF: 0 cephalexin 500 mg capsule 500 mg PO Q6H 9 Days Qty: 36 RF: 0 aspirin 81 mg Tablet,Delayed Release (Dr/Ec) 81 mg PO QAM Qty: 30 RF: 0 metoprolol tartrate 50 mg Tablet 25 mg PO BID Qty: 30 RF: 0 Continued cholecalciferol (vitamin D3) [Vitamin D3] 125 mcg (5,000 unit) tablet 5,000 unit PO DAILY Qty: 90 RF: 3 gabapentin 600 mg tablet 600 mg PO DAILY Qty: 90 RF: 3 Wegovy 1.7 mg/0.75 mL pen injector 1.7 mg subcut Q7D Qty: 3 RF: 5 topiramate 25 mg tablet 25 mg PO HS Qty: 60 RF: 0 Xarelto 10 mg tablet 20 mg PO DAILY RF: 0 venlafaxine 75 mg tablet extended release 24hr 75 mg PO DAILY RF: 0 multivitamin Tablet 1 tab PO DAILY RF: 0 pantoprazole 40 mg tablet,delayed release (DR/EC) 40 mg PO BID RF: 0 furosemide 20 mg tablet 100 mg PO DAILY RF: 0 doxepin 10 mg capsule 10 mg PO HS RF: 0 fluoxetine 60 mg tablet 60 mg PO DAILY RF: 0 insulin lispro [Humalog KwikPen Insulin] 100 unit/mL insulin pen 1 sliding scale dose subcut USEASDIRECTD RF: 0 hydroxyzine HCl 25 mg tablet 25 mg PO DAILY PRN (Reason: Anxiety) RF: 0 lisinopril 2.5 mg tablet 2.5 mg PO DAILY RF: 0 albuterol sulfate [Ventolin HFA] 90 mcg/actuation HFA aerosol inhaler 2 puff INHALATION Q6H PRN (Reason: Shortness Of Breath Or Wheezing) Qty: 18 RF: 3 Discontinued rosuvastatin 5 mg tablet 5 mg PO DAILY Qty: 90 RF: 3 No Action (DME) pen needle, diabetic [Comfort EZ Pen [place]] 29 gauge x 1/2" needle See Rx Instructions .ROUTE .MEDSUPPLY Qty: 100 RF: 5 (DME) cane Device See Rx Instructions .ROUTE .MEDSUPPLY Qty: 1 RF: 0 (DME) Dexcom G6 Ware Dresser Misc See Rx Instructions .Route Qty: 1 RF: 0 (DME) Dexcom G6 Sensor Device See Rx Instructions .Route Qty: 3 RF: 11 (DME) Dexcom G6 Transmitter Device See Rx Instructions .Route Qty: 1 RF: 3 (DME) Oxygen Home Liters Per Minute See Rx Instructions .ROUTE RF: 0 (DME) OneTouch Ultra Blue Test Strip Strip See Rx Instructions .ROUTE .MEDSUPPLY Qty: 100 RF: 5 Discharge Orders: Discharge Order (Routine); Ordered 08/21/21 Ordered By: Khushi Varghese Admission Data Admit Date/Time: 08/16/21 20:38 Attending Provider: Tootie Joya Admit Provider: Khushi Varghese Primary Care Provider: Mike Isidro Other Providers: [facility],Home [facility] ; Shahbaz Andrade ; Varun Espitia ; Jordan Toledo ; Fabien Bailey ; Toy Baxter I. ; Chris Goldberg II ; Lorraine Kilgore ; Alden Gimenez ; Paulo Robins Other Interventions: Discharge Summary Assessment (RN) Last Done: 08/21/21 13:43 Supervising Physician Co-Signing Physician Notes Patient seen and examined with PGY-2 Dr. Lucero. Agree with history, exam findings, assessment and plan of care as outlined. In brief, Mr. Bejarano is a 51 year old male with history of DM (on insulin) with hx of Left BKA, HTN, HLD, recurrent DVT (not ACed) admitted with worsening right lower extremity cellulitis. Doing well today. Feels that the redness and leg pain is significantly improved. No fevers, chills. Eager to be discharged home Vital signs and nursing notes reviewed. Right lower extremity with some tenderness of the lateral calf, but improved compared to yesterday. Erythema and dusky appearing skin color is receded distal to the marked line. Skin with woody texture. Labs and imaging reviewed. 1. RLE cellulitis. Completed recent vanc/linezolid course x 14 days. No acute DVT on Doppler. Continue dapto and aztreonam. Blood cultures without growth. Will be discharged on Keflex for total of 14 day antibiotic course. 2. Elevated troponin with new T wave inversion. Troponins trending down. Started metoprolol 50mg BID. Continue home Lisinopril, ASA. Increased crestor to 20mg. Consider outpatient stress test. Appreciate cardiology recommendations. 3. Blood loss anemia. IV Protonix BID, famotidine daily. Hbg is relatively stable. 4. DM. A1C 8.5%. Lantus 10U BID. Dispo: I personally spent 20 minutes discharge planning for this patient. He will need to follow-up with his PCP within 7 to 10 days. Resident Activity Tracking Resident Involvement: Resident Care Provided Care Provided: Adult Hospital Medicine
[2021-08-21] MEDS ORDERED: INSULIN GLARGINE SOLOSTAR 100 UNITS/ML 3 ML PEN SC SCH (21:00)
== END 2021-08-21 15:22 | disposition home health service (06) | DRG 638 ==
LOC: ED 12:22 → 2S 20:38 → SUATTDRO 20:38 → 2S 21:14 → 2N 08-19 19:53

== ENCOUNTER 2021-09-23 11:28 | Observation (INO) ==
[2021-09-23 12:38] LABS: Basophils # (auto) 0.02 K/uL (0-0.2); Basophils % (auto) 0.3 %; Eosinophils # (auto) 0.25 K/uL (0-0.5); Eosinophils % (auto) 3.4 %; Hematocrit (blood only) 34.3 % (42-52); Immature Granulocytes # (auto) 0.03 K/uL (0.00-0.02); Immature Granulocytes % (auto) 0.4 %; Lymphocytes # (auto) 1.84 K/uL (1.2-3.4); Lymphocytes % (auto) 25.2 %; Mean Corpuscular Hemoglobin 27.8 pg (25-34); Mean Corpuscular Hgb Conc 32.1 g/dL (32-36); Mean Corpuscular Volume 86.8 fL (80-100); Mean Platelet Volume 9.5 fL (7.4-10.4); Monocytes # (auto) 0.77 K/uL (0.11-0.59); Monocytes % (auto) 10.6 %; Neutrophils # (auto) 4.38 K/uL (1.4-6.5); Neutrophils % (auto) 60.1 %; Platelet Count 249 K/uL (130-400); RDW Coefficient of Variation 15.8 % (11.5-14.5); RDW Standard Deviation 50.6 fL (36.4-46.3); Red Blood Count 3.95 M/uL (4.7-6.1); White Blood Count 7.29 K/uL (4.8-10.8)
[2021-09-23 13:02] LABS: Alanine Aminotransferase 29 (12-78); Albumin Level 2.4 gm/dl (3.4-5.0); Aspartate Aminotransferase 67 U/L (15-37); BUN Creatinine Ratio 15.6 (10-20); Blood Urea Nitrogen 15 mg/dl (7-18); Calcium 9.2 mg/dl (8.5-10.1); Carbon Dioxide 25 mmol/L (21-32); Chloride 103 mmol/L (98-107); Est GFR (African American) 101.6 ml/min; Est GFR (Non-African American) 87.7 ml/min; Glucose 249 mg/dl (70-99); Lipase 103 U/L (73-393); Potassium 3.7 mmol/L (3.5-5.1); Sodium 133 mmol/L (136-145)
[2021-09-23 13:04] LABS: Albumin Globulin Ratio 0.4 (0.9-2); Alkaline Phosphatase 82 U/L (45-117); Bilirubin,Total 0.5 mg/dl (0.2-1); Globulin 6.6 gm/dl (2.5-4.0)
[2021-09-23] MEDS ORDERED: CEFEPIME 2,000 MG/20 ML VIAL IV STA (16:29)
[2021-09-23] MEDS ORDERED: DAPTOmycin 475 MG in SYRINGE 0 ML IV ONE (16:43)
--- NOTE | 2021-09-23 17:03 | Emergency Department Note ---
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 The patient states for the past few days, he has been experiencing some diarrhea. He states there have been several episodes per day. Today, he did take some Imodium and notes only 3 episodes of loose bowel movements. He states a few days ago, he had an episode of diarrhea in the shower and got some stool on his right foot. Since that time, he has noticed increased redness, particularly of the second digit and redness, pain, and swelling radiating up the right lower extremity. The patient denies any abdominal pain. He denies any nausea or vomiting. No known or documented fever. No chest pain or difficulty breathing. Patient rates his discomfort a 4/10 and describes it as sharp and aching. He has not been taking any medications for his symptoms. He does note there is some burning of his scrotum associated with the incontinence of stool. Home Medications Medication Instructions Recorded Confirmed Type pen needle, diabetic 29 gauge x #100 ea 03/14/20 09/23/21 Rx 1/2" (Comfort EZ Pen [place]) cane #1 ea 08/03/20 09/23/21 Rx cholecalciferol (vitamin D3) 125 5,000 unit PO DAILY #90 tab 01/14/21 09/23/21 Rx mcg (5,000 unit) tablet (Vitamin D3) albuterol sulfate 90 mcg/actuation 2 puff INHALATION Q6H PRN #18 gm 03/12/21 09/23/21 Rx aerosol inhaler (Ventolin HFA) Dexcom G6 [place] (blood-glucose #1 ea NS 07/16/21 09/23/21 Rx meter,continuous) Dexcom G6 Sensor (blood-glucose #3 ea NS 07/16/21 09/23/21 Rx sensor) Dexcom G6 Transmitter #1 ea NS 07/16/21 09/23/21 Rx (blood-glucose transmitter) Oxygen Home 08/15/21 09/23/21 History doxepin 10 mg capsule 10 mg PO HS 08/15/21 09/23/21 History fluoxetine 60 mg tablet 60 mg PO QAM 08/15/21 09/23/21 History furosemide 20 mg tablet 100 mg PO QAM 08/15/21 09/23/21 History hydroxyzine HCl 25 mg tablet 25 mg PO DAILY PRN 08/15/21 09/23/21 History lisinopril 2.5 mg tablet 2.5 mg PO QAM 08/15/21 09/23/21 History multivitamin 1 tab PO DAILY 08/15/21 09/23/21 History pantoprazole 40 mg tablet,delayed 40 mg PO QAM tab 08/15/21 09/23/21 History release venlafaxine 75 mg tablet,extended 75 mg PO QAM 08/15/21 09/23/21 History release 24 hr aspirin 81 mg tablet,delayed 81 mg PO QAM #30 tab 08/21/21 09/23/21 Rx release metoprolol tartrate 50 mg tablet 25 mg PO BID #30 tab 08/21/21 09/23/21 Rx gabapentin 600 mg tablet 600 mg PO TID #90 tab 08/29/21 09/23/21 Rx rivaroxaban 20 mg tablet 20 mg PO QPM #90 tab 09/17/21 09/23/21 Rx rosuvastatin 20 mg tablet (Crestor) 20 mg PO HS 09/19/21 09/23/21 History topiramate 25 mg tablet 25 mg PO HS #60 tab 09/19/21 09/23/21 Rx blood sugar diagnostic #100 ea 09/20/21 09/23/21 Rx insulin aspar prot-insulin aspart See Rx Instructions .ROUTE 09/20/21 09/23/21 Rx 100 unit/mL (70-30) subcutaneous .COMPLEX #90 ml pen (Novolog Mix 70-30FlexPen U-100) semaglutide (weight loss) 1.7 1.7 mg SUBCUT Q7D #3 ml 09/20/21 09/23/21 Rx mg/0.75 mL subcutaneous pen injector (Weyessyvy) Allergies Allergy/AdvReac Type Severity Reaction Status Date / Time clindamycin Allergy Intermediate Hives Verified 09/23/21 16:40 cefepime Allergy Mild RASH-POSSIBLY Verified 09/23/21 16:40 DUE TO CEFEPIME vancomycin AdvReac Intermediate KYE Verified 09/23/21 16:40 SYNDROME piperacillin [From Zosyn] AdvReac Mild skin rash, Verified 09/23/21 16:40 itching, mild tazobactam [From Zosyn] AdvReac Mild skin rash, Verified 09/23/21 16:40 itching, mild Past Med/Surg History Medical History Below-knee amputation of left lower extremity CHF (congestive heart failure) 6 weeks ago had 40 pounds of fluid overload and was flown to [place] and was put on lasix 100 mg is thought to have CHF Depression Diabetes type 2, uncontrolled Diabetic peripheral neuropathy associated with type 2 diabetes mellitus DVT (deep venous thrombosis) (08/16/13) xarelto last blood clot was 2020 in leg Dysesthesia Dyslipidemia History of cellulitis leg and was sent [facility] History of GI bleed duodenal ulcer Hx of renal calculi Hypertension Personal history of diabetic foot ulcer Vitamin D deficiency Surgical History History of repair of right rotator cuff Hx laparoscopic cholecystectomy Hx of amputation below knee left leg and had multiple surgeries Hx of colonoscopy Hx of nephrostomy large kidney stone S/P hernia repair S/P PICC central line placement with removal S/P rotator cuff repair Family History Aunt No problems noted. Grandmother (Maternal) Throat cancer Myocardial infarction Grandfather (Maternal) Myocardial infarction Other Coronary heart disease Diabetes No pertinent family history Denies family history of Ovarian cancer Prostate cancer Breast cancer Colorectal cancer Social History Smoking Status: Never smoker Tobacco Type: Cigarettes Second Hand Exposure: No; Hx Alcohol Use: No Hx Substance Use: No Preferred Language: Jamaican Communication Ability: Effective Intelligence Chief Required: No Beliefs That Will Affect Care: None marital status: Current Living Situation: Spouse Current Living Situation Comment: Home current occupational status: disabled How many Children do You have: 2 Feels Safe at Home: Yes Physical Activity Frequency: Does not Exercise Seatbelt Use: always Sunscreen Use: Yes Assistive Devices: Glasses and Prosthesis Review of Systems A total of 10 systems reviewed and were otherwise negative Physical Exam Vital Signs Vital Signs - 24 hr 09/23/21 11:44 09/23/21 16:57 Temperature 36.0 C L Temperature Source Temporal Artery Scan Pulse Rate 87 Respiratory Rate 20 22 Respiratory Effort / Characteristics Non-Labored Spontaneous Non-Labored Spontaneous Respiratory Depth Normal Normal Respiratory Pattern Regular Regular Blood Pressure 146/82 H Blood Pressure [Right Arm] 125/86 Blood Pressure Mean 103 Blood Pressure Mean [Right Arm] 99 Blood Pressure Position [Right Arm] Lying Pulse Oximetry 97 100 Oxygen Delivery Method Room Air Room Air Sepsis Recent Fever Within 48 Hours No Sepsis New/Unexplained Change in Mental Status No Sepsis Action Taken by Nursing No Action Required VITALS: Vitals are noted on the nurse's note and reviewed by myself. Vital signs stable. GENERAL: This is a 51-year-old obese white male, in no acute distress, nondiaphoretic, well-developed well-nourished. SKIN: 3+ pitting edema of the right lower extremity. There is erythema extending to the proximal tip/fib. There is more faint erythema extending to the posterior aspect of the right thigh. There is tenderness in these areas. There is erythema and tenderness of the scrotum without extension to the perineum. There is ulceration, erythema, edema of the right second digit. There is a scabbed over wound of the right fifth digit. The skin was otherwise without rashes, erythema, edema, or bruising. There is no tenting of the skin. Capillary refill less than 2 seconds. HEAD: Normocephalic atraumatic. EYES: Conjunctivae without injection, sclerae without icterus. NECK: Supple without nuchal rigidity. No lymphadenopathy. No JVD. HEART: Regular rate and rhythm without murmurs gallops or rubs. LUNGS: Clear to auscultation bilaterally without wheezes, rales or rhonchi. No retractions or accessory muscle use. ABDOMEN: Positive bowel sounds x 4. Soft, nontender, without masses or organomegaly. No guarding or rebound tenderness. MUSCULOSKELETAL: Below the knee amputation of the left lower extremity. No muscle atrophy, erythema, or edema noted. Full range of motion without joint tenderness in all extremities. No tenderness to palpation. Normal gait. Strength 5/5 throughout. NEURO: Patient was alert and oriented to person place and time. No focal neurological deficits. Course Course Due to high volume, high acuity in the emergency department in the setting of the COVID-19 pandemic, critical pathways initiated by nursing staff. IV access obtained, labs drawn. I did review the labs. The patient was seen and evaluated as above. An order was placed for continuous cardiac monitoring. The monitor shows a normal sinus rhythm at a rate of 87 bpm. Further labs drawn to include blood cultures and lactic acid. I discussed the case with the ED pharmacist. Recommendations made to start the patient on daptomycin and cefepime at this time. Of note, the patient has tolerated cefepime at [place] at his most recent admission there. I discussed the case with my attending physician. Ultrasound imaging performed and reviewed by myself and radiologist as noted. Labs reviewed by myself. I discussed the findings with the patient at bedside. []I discussed the case with my attending. Discharge instructions reviewed, the patient was discharged home in good condition. Administered Medications Discontinued Medications Cefepime HCl (Maxipime) 2,000 mg in 20 mls @ 5 mls/min IV NOW STA; Protocol Stop: 09/23/21 16:32 Last Admin: 09/23/21 16:46 Dose: 5 mls/min Documented by: [id number] Medical Decision Making Laboratory Data Result diagrams: 09/23/21 12:15 09/23/21 12:15 Lab Results 09/23/21 09/23/21 09/23/21 Range/Units 12:15 12:15 16:31 WBC 7.29 (4.8-10.8) K/uL RBC 3.95 L (4.7-6.1) M/uL Hgb 11.0 L (14.0-18.0) g/dL Hct 34.3 L (42-52) % MCV 86.8 (80-100) fL MCH 27.8 (25-34) pg MCHC 32.1 (32-36) g/dL RDW Std Deviation 50.6 H (36.4-46.3) fL RDW Coeff of Wil 15.8 H (11.5-14.5) % Plt Count 249 (130-400) K/uL MPV 9.5 (7.4-10.4) fL Immature Gran % (Auto) 0.4 % Neut % (Auto) 60.1 % Lymph % (Auto) 25.2 % Custer % (Auto) 10.6 % Eos % (Auto) 3.4 % Baso % (Auto) 0.3 % Neut # (Auto) 4.38 (1.4-6.5) K/uL Lymph # (Auto) 1.84 (1.2-3.4) K/uL Custer # (Auto) 0.77 H (0.11-0.59) K/uL Eos # (Auto) 0.25 (0-0.5) K/uL Baso # (Auto) 0.02 (0-0.2) K/uL Immature Gran # (Auto) 0.03 H (0.00-0.02) K/uL Sodium 133 L (136-145) mmol/L Potassium 3.7 (3.5-5.1) mmol/L Chloride 103 (98-107) mmol/L Carbon Dioxide 25 (21-32) mmol/L Anion Gap 5.0 (3-11) BUN 15 (7-18) mg/dl Creatinine 0.98 (0.6-1.4) mg/dl Est Cr Clr Drug Dosing Not Reportable Est GFR ( Amer) 101.6 ml/min Est GFR (Non-Af Amer) 87.7 ml/min BUN/Creatinine Ratio 15.6 (10-20) Glucose 249 H (70-99) mg/dl Lactate (0.4-2.0) mmol/L Calcium 9.2 (8.5-10.1) mg/dl Total Bilirubin 0.5 (0.2-1) mg/dl AST 67 H (15-37) U/L ALT 29 (12-78) Alkaline Phosphatase 82 (45-117) U/L Total Protein 9.0 H (6.4-8.2) gm/dl Albumin 2.4 L (3.4-5.0) gm/dl Globulin 6.6 H (2.5-4.0) gm/dl Albumin/Globulin Ratio 0.4 L (0.9-2) Lipase 103 (73-393) U/L SARS-CoV-2 (PCR) NEGATIVE (Negative) Influenza Type A (PCR) Negative (Neg) Influenza Type B (PCR) Negative (Neg) RSV (RT-PCR) Negative (Neg) 09/23/21 Range/Units 16:48 WBC (4.8-10.8) K/uL RBC (4.7-6.1) M/uL Hgb (14.0-18.0) g/dL Hct (42-52) % MCV (80-100) fL MCH (25-34) pg MCHC (32-36) g/dL RDW Std Deviation (36.4-46.3) fL RDW Coeff of Wil (11.5-14.5) % Plt Count (130-400) K/uL MPV (7.4-10.4) fL Immature Gran % (Auto) % Neut % (Auto) % Lymph % (Auto) % Custer % (Auto) % Eos % (Auto) % Baso % (Auto) % Neut # (Auto) (1.4-6.5) K/uL Lymph # (Auto) (1.2-3.4) K/uL Custer # (Auto) (0.11-0.59) K/uL Eos # (Auto) (0-0.5) K/uL Baso # (Auto) (0-0.2) K/uL Immature Gran # (Auto) (0.00-0.02) K/uL Sodium (136-145) mmol/L Potassium (3.5-5.1) mmol/L Chloride (98-107) mmol/L Carbon Dioxide (21-32) mmol/L Anion Gap (3-11) BUN (7-18) mg/dl Creatinine (0.6-1.4) mg/dl Est Cr Clr Drug Dosing Est GFR ( Amer) ml/min Est GFR (Non-Af Amer) ml/min BUN/Creatinine Ratio (10-20) Glucose (70-99) mg/dl Lactate 1.3 (0.4-2.0) mmol/L Calcium (8.5-10.1) mg/dl Total Bilirubin (0.2-1) mg/dl AST (15-37) U/L ALT (12-78) Alkaline Phosphatase (45-117) U/L Total Protein (6.4-8.2) gm/dl Albumin (3.4-5.0) gm/dl Globulin (2.5-4.0) gm/dl Albumin/Globulin Ratio (0.9-2) Lipase (73-393) U/L SARS-CoV-2 (PCR) (Negative) Influenza Type A (PCR) (Neg) Influenza Type B (PCR) (Neg) RSV (RT-PCR) (Neg) Discharge Plan Visit Data Chief Complaint: Diarrhea Stated Complaint: INFECTION TO R LEG, POSSIBLE RECTAL BLEED ED Provider: Sukhdev Muñiz ED Midlevel Provider: Janis Shell Forms Stand Alone Forms: [facility] Prescriptions Prescriptions: No Action (DME) pen needle, diabetic [Comfort EZ Pen [place]] 29 gauge x 1/2" needle See Rx Instructions .ROUTE .MEDSUPPLY Qty: 100 RF: 5 (DME) cane Device See Rx Instructions .ROUTE .MEDSUPPLY Qty: 1 RF: 0 cholecalciferol (vitamin D3) [Vitamin D3] 125 mcg (5,000 unit) tablet 5,000 unit PO DAILY Qty: 90 RF: 3 (DME) Dexcom G6 [place] Misc See Rx Instructions .Route Qty: 1 RF: 0 (DME) Dexcom G6 Sensor Device See Rx Instructions .Route Qty: 3 RF: 11 (DME) Dexcom G6 Transmitter Device See Rx Instructions .Route Qty: 1 RF: 3 rivaroxaban 20 mg tablet 20 mg PO QPM Qty: 90 RF: 3 topiramate 25 mg tablet 25 mg PO HS Qty: 60 RF: 0 (DME) OneTouch Ultra Blue Test Strip Strip See Rx Instructions .ROUTE .MEDSUPPLY Qty: 100 RF: 5 Wegovy 1.7 mg/0.75 mL pen injector 1.7 mg subcut Q7D Qty: 3 RF: 5 insulin asp prt-insulin aspart [Novolog Mix 70-30FlexPen U-100] 100 unit/mL (70-30) insulin pen See Rx Instructions .ROUTE .COMPLEX Qty: 90 RF: 5 (DME) Oxygen Home Liters Per Minute See Rx Instructions .Route RF: 0 venlafaxine 75 mg tablet extended release 24hr 75 mg PO QAM RF: 0 multivitamin Tablet 1 tab PO DAILY RF: 0 pantoprazole 40 mg tablet,delayed release (DR/EC) 40 mg PO QAM RF: 0 furosemide 20 mg tablet 100 mg PO QAM RF: 0 doxepin 10 mg capsule 10 mg PO HS RF: 0 fluoxetine 60 mg tablet 60 mg PO QAM RF: 0 hydroxyzine HCl 25 mg tablet 25 mg PO DAILY PRN (Reason: Anxiety) RF: 0 lisinopril 2.5 mg tablet 2.5 mg PO QAM RF: 0 albuterol sulfate [Ventolin HFA] 90 mcg/actuation HFA aerosol inhaler 2 puff INHALATION Q6H PRN (Reason: Shortness Of Breath Or Wheezing) Qty: 18 RF: 3 gabapentin 600 mg tablet 600 mg PO TID Qty: 90 RF: 3 aspirin 81 mg Tablet,Delayed Release (Dr/Ec) 81 mg PO QAM Qty: 30 RF: 0 metoprolol tartrate 50 mg Tablet 25 mg PO BID Qty: 30 RF: 0 rosuvastatin [Crestor] 20 mg tablet 20 mg PO HS RF: 0 Referrals Referrals: Mike Isidro MD [Primary Care Provider] -
[2021-09-23 17:24] LABS: Influenza A virus by PCR Negative (Neg); Influenza B virus by PCR Negative (Neg); RSV by PCR Negative (Neg)
--- NOTE | 2021-09-23 18:02 | History & Physical Report ---
Date of Service September 23, 2021 Assessment & Plan (1) Cellulitis of right leg: (2) Diabetes type 2, uncontrolled: (3) Hypertension: (4) Diarrhea: (5) History of CHF (congestive heart failure): Plan: 51 year old male past medical history T2DM, below knee amputation of LLE, CHF, DVT in 2012 on Xarelto, HTN admitted for cellulitis of right lower extremity. Cellulitis of right leg w/ ulcer: -Venous Doppler RLE w/o evidence of DVT. -Patient given 2,000mg dose of Cefepime and started on 475mg Daptomycin in ED. -Continue daptomycin, cefepime. -Wound care consulted for ulcer. -WBC 7.29, Blood cultures pending. Diarrhea: -Gastroenteritis vs gastroparesis, more likely gastroenteritis. -Stool GI PCR panel ordered, not yet collected. -Will monitor patient's symptoms. Diabetes: -BSG 249 in ED. Glycemic consult in place. -Diabetic diet. -Continue to glucose checks. HTN: -Continued lisinopril 2.5mg and metoprolol tartrate 25mg. -Continue to monitor vitals. History of CHF: -Last echo with EF 60-65% in July of 2021. -Continued metoprolol tartrate 25mg. -Usually on O2 at home at night, ordered 1L O2 [facility] for hospital course. Dispo: Observation Code Status: Full code DVT Prophylaxis: Xarelto 20mg (home med) History of Present Illness Chief Complaint: Cellulitis RLE Primary Care Provider: Mike Isidro MD Wyatt is a 51 year old male with past medical history of T2DM, below knee amputation of LLE, CHF, DVT in 2012 on Xarelto, HTN who came in to the ED with a 3 days of worsening right lower extremity pain, redness, and swelling. Patient says Thursday he started feeling mildly sick and had a few soft stools, but still in control of his bowel movements at that time. Thursday patient started to feel "weak, lethargic, hot, and dizzy" and developed diarrhea with stool incontinence. If he made any sort of movement he would have an episode of diarrhea he could not stop. While in the shower that day he got some of his feces on his right foot and later on in the day developed pain and erythema at his right foot at the toes. The foot pain and erythema worsened Thursday and Thursday, and Thursday morning he noticed his second toe was especially erythematous as well as a new ulcer at the distal anterior leg. A science writer helping him told him there was a small amount of blood in his stool but that he was also bleeding mildly at the scrotum. Patient took Imodium in the morning to help with his diarrhea and said he has not had a bowel movement since then. Patient decided to come in to the ED following the progression of these events. Of note patient was previously hospitalized at [place] 7 weeks ago for sepsis relating to cellulitis where he was diagnosed with CHF and GI ulcer. He came to the [facility] on for a covid test for a planned EGD that as scheduled for 09/24. Denies history of MRSA or any known history of C. Diff. Denies being on antibiotics prior to or during diarrhea onset. Denies fevers, chills, sweats, shortness of breath, chest pain, headaches, nausea, vomiting. Denies tobacco products, recent alcohol use, and recreational drug use. Allergies Allergy/AdvReac Type Severity Reaction Status Date / Time clindamycin Allergy Intermediate Hives Verified 09/23/21 16:40 cefepime Allergy Mild RASH-POSSIBLY Verified 09/23/21 16:40 DUE TO CEFEPIME vancomycin AdvReac Intermediate KYE Verified 09/23/21 16:40 SYNDROME piperacillin [From Zosyn] AdvReac Mild skin rash, Verified 09/23/21 16:40 itching, mild tazobactam [From Zosyn] AdvReac Mild skin rash, Verified 09/23/21 16:40 itching, mild Home Medications Medication Instructions Recorded Confirmed Type pen needle, diabetic 29 gauge x #100 ea 03/14/20 09/23/21 Rx 1/2" (Comfort EZ Pen [place]) cane #1 ea 08/03/20 09/23/21 Rx cholecalciferol (vitamin D3) 125 5,000 unit PO DAILY #90 tab 01/14/21 09/23/21 Rx mcg (5,000 unit) tablet (Vitamin D3) albuterol sulfate 90 mcg/actuation 2 puff INHALATION Q6H PRN #18 gm 03/12/21 09/23/21 Rx aerosol inhaler (Ventolin HFA) Dexcom G6 General Matcher (blood-glucose #1 ea NS 07/16/21 09/23/21 Rx meter,continuous) Dexcom G6 Sensor (blood-glucose #3 ea NS 07/16/21 09/23/21 Rx sensor) Dexcom G6 Transmitter #1 ea NS 07/16/21 09/23/21 Rx (blood-glucose transmitter) Oxygen Home 08/15/21 09/23/21 History doxepin 10 mg capsule 10 mg PO HS 08/15/21 09/23/21 History fluoxetine 60 mg tablet 60 mg PO QAM 08/15/21 09/23/21 History furosemide 20 mg tablet 100 mg PO QAM 08/15/21 09/23/21 History hydroxyzine HCl 25 mg tablet 25 mg PO DAILY PRN 08/15/21 09/23/21 History lisinopril 2.5 mg tablet 2.5 mg PO QAM 08/15/21 09/23/21 History multivitamin 1 tab PO DAILY 08/15/21 09/23/21 History pantoprazole 40 mg tablet,delayed 40 mg PO QAM tab 08/15/21 09/23/21 History release venlafaxine 75 mg tablet,extended 75 mg PO QAM 08/15/21 09/23/21 History release 24 hr aspirin 81 mg tablet,delayed 81 mg PO QAM #30 tab 08/21/21 09/23/21 Rx release metoprolol tartrate 50 mg tablet 25 mg PO BID #30 tab 08/21/21 09/23/21 Rx gabapentin 600 mg tablet 600 mg PO TID #90 tab 08/29/21 09/23/21 Rx rivaroxaban 20 mg tablet 20 mg PO QPM #90 tab 09/17/21 09/23/21 Rx rosuvastatin 20 mg tablet (Crestor) 20 mg PO HS 09/19/21 09/23/21 History topiramate 25 mg tablet 25 mg PO HS #60 tab 09/19/21 09/23/21 Rx blood sugar diagnostic #100 ea 09/20/21 09/23/21 Rx insulin aspar prot-insulin aspart See Rx Instructions .ROUTE 09/20/21 09/23/21 Rx 100 unit/mL (70-30) subcutaneous .COMPLEX #90 ml pen (Novolog Mix 70-30FlexPen U-100) semaglutide (weight loss) 1.7 1.7 mg SUBCUT Q7D #3 ml 09/20/21 09/23/21 Rx mg/0.75 mL subcutaneous pen injector (Weyessyvjimi) Past Med/Surg History Medical History Below-knee amputation of left lower extremity CHF (congestive heart failure) 6 weeks ago had 40 pounds of fluid overload and was flown to [facility] and was put on lasix 100 mg is thought to have CHF Depression Diabetes type 2, uncontrolled Diabetic peripheral neuropathy associated with type 2 diabetes mellitus DVT (deep venous thrombosis) (08/16/13) xarelto last blood clot was 2020 in leg Dysesthesia Dyslipidemia History of cellulitis leg and was sent [facility] History of GI bleed duodenal ulcer Hx of renal calculi Hypertension Personal history of diabetic foot ulcer Vitamin D deficiency Surgical History History of repair of right rotator cuff Hx laparoscopic cholecystectomy Hx of amputation below knee left leg and had multiple surgeries Hx of colonoscopy Hx of nephrostomy large kidney stone S/P hernia repair S/P PICC central line placement with removal S/P rotator cuff repair Family History Aunt No problems noted. Grandmother (Maternal) Throat cancer Myocardial infarction Grandfather (Maternal) Myocardial infarction Other Coronary heart disease Diabetes No pertinent family history Denies family history of Ovarian cancer Prostate cancer Breast cancer Colorectal cancer Social History Smoking Status: Former smoker Tobacco Type: Cigarettes Second Hand Exposure: No; Hx Alcohol Use: Yes Hx Substance Use: No Preferred Language: Citizen Of [place] Communication Ability: Effective Cabin Man Required: No Beliefs That Will Affect Care: None marital status: Current Living Situation: Spouse Current Living Situation Comment: Home current occupational status: disabled How many Children do You have: 2 Feels Safe at Home: Yes Safety Concerns: Feels Safe At This Time Physical Activity Frequency: Does not Exercise Seatbelt Use: always Sunscreen Use: Yes Assistive Devices: Prosthesis and Walker Review of Systems Review of Systems: All systems reviewed & are unremarkable except as noted in HPI & below Physical Exam Constitutional: WD/WN, vitals as above Eyes: PERRL, conjunctivae normal, anicteric sclerae ENMT: external ear and nose normal, oropharynx normal Neck: trachea midline, no thyromegaly Respiratory: normal respiratory effort, lungs clear to auscultation Cardiovascular: RRR, no murmur, no edema Gastrointestinal (Abdomen): normal bowel sounds, soft, nontender, no hepatosplenomegaly Skin: Left lower extremity with amputation below the knee and without erythema or swelling. Right lower extremity with signs of venous stasis and lymphedema. Right lower extremity second digit with erythema. ~1cm superficial ulcer with lo oking to be about Stage 2 or 3 on anterior distal right harkins. Scattered tender petechiae on medial right thigh and throughout leg distal to right knee. Bottom of scrotum with mild erythema. 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 Psychiatric: A+Ox3, euthymic affect Results & Data Results & Data ([facility]) Vital Signs (Past 12 Hours) Vital Signs Temp Pulse Resp BP BP Pulse Ox 09/23/21 16:57 22 125/86 100 09/23/21 11:44 36.0 C L 87 20 146/82 H 97 Diagnostic Findings US venous doppler LE RT HISTORY: 51 years-old Male pain, redness, swelling acute pain and swelling of the right lower leg COMPARISON: Doppler study 08/16/2021, CT study 08/02/2021. TECHNIQUE: Multiple real-time sonographic images of the right lower extremity deep venous structures were obtained assessing grayscale appearance, color and spectral flow. FINDINGS: Limited study secondary to patient body habitus and subcutaneous edema. Enlarged right inguinal chain lymph nodes measure up to 5.4 x 3.6 x 4.1 cm, stable from prior CT. Normal flow, compressibility, phasicity and augmentation. IMPRESSION: 1. No sonographic evidence of deep venous thrombosis. 2. Right inguinal adenopathy redemonstrated. Medications Administered ER Medications Given: Daptomycin 475mg IV Cefepime 2000mg IV Code Status & VTE Plan Code Status Full code Xarelto 20mg Supervising Physician Co-Signing Physician Notes I personally saw and examined the patient. I verified all spear points and agree with resident physician Dr Johansen, PGY1 with the following exceptions and/or additions: 51 year old male with RLE cellulitis getting worse over last 2 days on top of chronic venous stasis changes. O/E Patient is morbidly obese, no respiratory distress, non-toxic appearing. Erythema, warmth and swelling to RLE below knee to ankle but with lymphatic changes in medial thigh. Stage II ulcer on anterior harkins. A/P Cellulitis - observation warranted due to high risk with history of recent se psis and diabetes. Agree with daptomycin and cefepime. Allergic to penicillins and vancomycin. Narrow antibiotics pending blood cultures Resident Activity Tracking Resident Involvement: Resident Care Provided Care Provided: Adult Hospital Medicine (1) Diarrhea Diarrhea type: unspecified type Qualified Code(s): R19.7 - Diarrhea, unspecified
--- NOTE | 2021-09-23 18:08 | Ultrasound Report ---
US venous doppler LE RT HISTORY: 51 years-old Male pain, redness, swelling acute pain and swelling of the right lower leg COMPARISON: Doppler study 08/16/2021, CT study 08/02/2021. TECHNIQUE: Multiple real-time sonographic images of the right lower extremity deep venous structures were obtained assessing grayscale appearance, color and spectral flow. FINDINGS: Limited study secondary to patient body habitus and subcutaneous edema. Enlarged right inguinal chain lymph nodes measure up to 5.4 x 3.6 x 4.1 cm, stable from prior CT. Normal flow, compressibility, ph asicity and augmentation. IMPRESSION: 1. No sonographic evidence of deep venous thrombosis. 2. Right inguinal adenopathy redemonstrated. ACT 112: Negative or not required by law. The above report was generated using voice recognition software. It may contain grammatical, syntax o r spelling errors. Electronically signed by: Jamey Dent M.D. 09/23/2021 6:07 PM
[2021-09-23 18:36] LABS: SARS CoV2 RNA(COVID-19) InHosp NEGATIVE (Negative)
--- NOTE | 2021-09-23 19:21 | Emergency Department Note ---
ED Visit Note I have personally evaluated this patient examined him and reviewed the pertinent labs and data. I have discussed the case with Janis Shell, the physician cashier assistant and agree with the plan. Please refer to the PA note. This patient has a complex medical history comes in after he has some redness as well as a red right leg. On my exam is red and swollen diffusely and also extends up to the groin. Although he does not have an fever or elevated white count he does have what appears to be extensive cellulitis. Ultrasound does not show DVT. His Covid test was negative. He also does have several antibiotic allergies and we have discussed this with the ED pharmacist and have ordered him IV antibiotics and he will be admitted. .
--- NOTE | 2021-09-23 19:32 | Emergency Department Note ---
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 The patient states for the past few days, he has been experiencing some diarrhea. He states there has been several episodes per day. Today he did take some Imodium and notes only 3 episodes of loose bowel movements. He states a few days ago, he had an episode of diarrhea in the shower and got some stool on his right foot. Since that time, he has noticed increased redness, particularly of the second digit and redness, pain, and swelling radiating up the right lower extremity. The patient denies any abdominal pain. He denies any nausea or vomiting. No known or documented fever. No chest pain or difficulty breathing. Patient rates his discomfort a 4/10 and describes it as sharp and aching. He has not been taking any medications for his symptoms. He does note that there is some burning of his scrotum associated with the incontinence of stool. Home Medications Medication Instructions Recorded Confirmed Type pen needle, diabetic 29 gauge x #100 ea 03/14/20 09/23/21 Rx 1/2" (Comfort EZ Pen [place]) cane #1 ea 08/03/20 09/23/21 Rx cholecalciferol (vitamin D3) 125 5,000 unit PO DAILY #90 tab 01/14/21 09/23/21 Rx mcg (5,000 unit) tablet (Vitamin D3) albuterol sulfate 90 mcg/actuation 2 puff INHALATION Q6H PRN #18 gm 03/12/21 09/23/21 Rx aerosol inhaler (Ventolin HFA) Dexcom G6 Rotary Operator (blood-glucose #1 ea NS 07/16/21 09/23/21 Rx meter,continuous) Dexcom G6 Sensor (blood-glucose #3 ea NS 07/16/21 09/23/21 Rx sensor) Dexcom G6 Transmitter #1 ea NS 07/16/21 09/23/21 Rx (blood-glucose transmitter) Oxygen Home 08/15/21 09/23/21 History doxepin 10 mg capsule 10 mg PO HS 08/15/21 09/23/21 History fluoxetine 60 mg tablet 60 mg PO QAM 08/15/21 09/23/21 History furosemide 20 mg tablet 100 mg PO QAM 08/15/21 09/23/21 History hydroxyzine HCl 25 mg tablet 25 mg PO DAILY PRN 08/15/21 09/23/21 History lisinopril 2.5 mg tablet 2.5 mg PO QAM 08/15/21 09/23/21 History multivitamin 1 tab PO DAILY 08/15/21 09/23/21 History pantoprazole 40 mg tablet,delayed 40 mg PO QAM tab 08/15/21 09/23/21 History release venlafaxine 75 mg tablet,extended 75 mg PO QAM 08/15/21 09/23/21 History release 24 hr aspirin 81 mg tablet,delayed 81 mg PO QAM #30 tab 08/21/21 09/23/21 Rx release metoprolol tartrate 50 mg tablet 25 mg PO BID #30 tab 08/21/21 09/23/21 Rx gabapentin 600 mg tablet 600 mg PO TID #90 tab 08/29/21 09/23/21 Rx rivaroxaban 20 mg tablet 20 mg PO QPM #90 tab 09/17/21 09/23/21 Rx rosuvastatin 20 mg tablet (Crestor) 20 mg PO HS 09/19/21 09/23/21 History topiramate 25 mg tablet 25 mg PO HS #60 tab 09/19/21 09/23/21 Rx blood sugar diagnostic #100 ea 09/20/21 09/23/21 Rx insulin aspar prot-insulin aspart See Rx Instructions .ROUTE 09/20/21 09/23/21 Rx 100 unit/mL (70-30) subcutaneous .COMPLEX #90 ml pen (Novolog Mix 70-30FlexPen U-100) semaglutide (weight loss) 1.7 1.7 mg SUBCUT Q7D #3 ml 09/20/21 09/23/21 Rx mg/0.75 mL subcutaneous pen injector (Wecosmo) Allergies Allergy/AdvReac Type Severity Reaction Status Date / Time clindamycin Allergy Intermediate Hives Verified 09/23/21 16:40 cefepime Allergy Mild RASH-POSSIBLY Verified 09/23/21 16:40 DUE TO CEFEPIME vancomycin AdvReac Intermediate KYE Verified 09/23/21 16:40 SYNDROME piperacillin [From Zosyn] AdvReac Mild skin rash, Verified 09/23/21 16:40 itching, mild tazobactam [From Zosyn] AdvReac Mild skin rash, Verified 09/23/21 16:40 itching, mild Past Med/Surg History Medical History Below-knee amputation of left lower extremity CHF (congestive heart failure) 6 weeks ago had 40 pounds of fluid overload and was flown to [facility] and was put on lasix 100 mg is thought to have CHF Depression Diabetes type 2, uncontrolled Diabetic peripheral neuropathy associated with type 2 diabetes mellitus DVT (deep venous thrombosis) (08/16/13) xarelto last blood clot was 2020 in leg Dysesthesia Dyslipidemia History of cellulitis leg and was sent [facility] History of GI bleed duodenal ulcer Hx of renal calculi Hypertension Personal history of diabetic foot ulcer Vitamin D deficiency Surgical History History of repair of right rotator cuff Hx laparoscopic cholecystectomy Hx of amputation below knee left leg and had multiple surgeries Hx of colonoscopy Hx of nephrostomy large kidney stone S/P hernia repair S/P PICC central line placement with removal S/P rotator cuff repair Family History Aunt No problems noted. Grandmother (Maternal) Throat cancer Myocardial infarction Grandfather (Maternal) Myocardial infarction Other Coronary heart disease Diabetes No pertinent family history Denies family history of Ovarian cancer Prostate cancer Breast cancer Colorectal cancer Social History Smoking Status: Never smoker Tobacco Type: Cigarettes Second Hand Exposure: No; Hx Alcohol Use: No Hx Substance Use: No Preferred Language: Telugu Communication Ability: Effective Project Administrator Required: No Beliefs That Will Affect Care: None marital status: Current Living Situation: Spouse Current Living Situation Comment: Home current occupational status: disabled How many Children do You have: 2 Feels Safe at Home: Yes Physical Activity Frequency: Does not Exercise Seatbelt Use: always Sunscreen Use: Yes Assistive Devices: Glasses and Prosthesis Review of Systems A total of 10 systems reviewed and were otherwise negative Physical Exam Vital Signs Vital Signs - 24 hr 09/23/21 11:44 09/23/21 16:57 09/23/21 19:00 Temperature 36.0 C L Temperature Source Temporal Artery Scan Pulse Rate 87 93 H Pulse Rate from SpO2 Sensor 93 H Respiratory Rate 20 22 26 H Respiratory Effort / Characteristics Non-Labored Spontaneous Non-Labored Spontaneous Respiratory Depth Normal Normal Respiratory Pattern Regular Regular Blood Pressure 146/82 H 153/84 H Blood Pressure [Right Arm] 125/86 Blood Pressure Mean 103 107 Blood Pressure Mean [Right Arm] 99 Blood Pressure Position [Right Arm] Lying Pulse Oximetry 97 100 98 Oxygen Delivery Method Room Air Room Air Sepsis Recent Fever Within 48 Hours No Sepsis New/Unexplained Change in Mental Status No Sepsis Action Taken by Nursing No Action Required VITALS: Vitals are noted on the nurse's note and reviewed by myself. Vital signs stable. GENERAL: This is a 51-year-old male, in no acute distress, nondiaphoretic, well- developed well-nourished. SKIN: 3+ pitting edema of the right lower extremity. There is erythema extending to the proximal tibia/fib. There is more faint erythema extending to the posterior aspect of the right thigh. There is tenderness in these areas. There is erythema and tenderness of the scrotum without extension to the perineum. There is ulceration, erythema, edema of the right second digit. There is a scabbed over wound of the right fifth digit. The skin was otherwise without rashes, erythema, edema, or bruising. There is no tenting of the skin. Capillary refill less than 2 seconds. HEAD: Normocephalic atraumatic. EYES: Conjunctivae without injection, sclerae without icterus. NECK: Supple without nuchal rigidity. No lymphadenopathy. No thyromegaly. No JVD. HEART: Regular rate and rhythm without murmurs gallops or rubs. LUNGS: Clear to auscultation bilaterally without wheezes, rales or rhonchi. No retractions or accessory muscle use. ABDOMEN: Positive bowel sounds x 4. Soft, nontender, without masses or organomegaly. No guarding or rebound tenderness. MUSCULOSKELETAL: No muscle atrophy, erythema, or edema noted. Full range of motion without joint tenderness in all extremities. No tenderness to palpation. Normal gait. Strength 5/5 throughout. NEURO: Patient was alert and oriented to person place and time. No focal neurological deficits. Course Course Due to high volume, high acuity in the emergency department in the setting of the Covid-19 pandemic, critical pathways initiated by nursing staff. IV access obtained, labs drawn. I did review the labs. The patient was seen and evaluated as above. An order was placed for continuous cardiac monitoring. The monitor shows a normal sinus rhythm at a rate of 87 bpm. Further labs drawn to include blood cultures lactic acid. I discussed the case with the ED pharmacist. Recommendations made to start the patient on daptomycin and cefepime at this time. Of note, the patient has tolerated cefepime in [place] at his most recent admission there. I discussed the case with my attending physician Imaging performed and reviewed by myself and radiologist as noted. I discussed the findings with the patient at bedside. Recommended inpatient care due to his history. The patient was agreeable I discussed the case with the meat processing center manager. I discussed the case with the [facility] hospitalist physician, Dr. Brennan Patient will be admitted to their service. Please see hospitalist dictation regarding ongoing management and care. Administered Medications Discontinued Medications Cefepime HCl (Maxipime) 2,000 mg in 20 mls @ 5 mls/min IV NOW STA; Protocol Stop: 09/23/21 16:32 Last Admin: 09/23/21 16:46 Dose: 5 mls/min Documented by: [id number] Daptomycin 475 mg/ Syringe 9.5 mls @ 4.75 mls/min IV NOW ONE; Protocol Stop: 09/23/21 16:44 Last Admin: 09/23/21 17:51 Dose: 4.75 mls/min Documented by: [id number] Medical Decision Making Differential Diagnosis Cellulitis, abscess, MRSA infection, DVT, necrotizing fasciitis, dermatitis, drug eruption, allergic reaction, appendicitis, diverticulitis, obstruction, inflammatory bowel disease, renal colic, PUD, biliary pathology, pancreatitis, mesenteric ischemia, aortic pathology, infections, genitourinary, UTI, perfo rated viscus, as well as others were entertained. Medical Records Attestation: I reviewed the patient's medical records. Home Medications Current Medication List: was personally reviewed by me Laboratory Data No leukocytosis, anemia, thrombocytopenia. Renal, hepatic function, and electrolytes without significant abnormality. Lipase 103. Lactic acid 1.3. Influenza, COVID-19, RSV testing negative. Result diagrams: 09/23/21 12:15 09/23/21 12:15 Lab Results 09/23/21 09/23/21 09/23/21 Range/Units 12:15 12:15 16:31 WBC 7.29 (4.8-10.8) K/uL RBC 3.95 L (4.7-6.1) M/uL Hgb 11.0 L (14.0-18.0) g/dL Hct 34.3 L (42-52) % MCV 86.8 (80-100) fL MCH 27.8 (25-34) pg MCHC 32.1 (32-36) g/dL RDW Std Deviation 50.6 H (36.4-46.3) fL RDW Coeff of Wil 15.8 H (11.5-14.5) % Plt Count 249 (130-400) K/uL MPV 9.5 (7.4-10.4) fL Immature Gran % (Auto) 0.4 % Neut % (Auto) 60.1 % Lymph % (Auto) 25.2 % Gentry % (Auto) 10.6 % Eos % (Auto) 3.4 % Baso % (Auto) 0.3 % Neut # (Auto) 4.38 (1.4-6.5) K/uL Lymph # (Auto) 1.84 (1.2-3.4) K/uL Gentry # (Auto) 0.77 H (0.11-0.59) K/uL Eos # (Auto) 0.25 (0-0.5) K/uL Baso # (Auto) 0.02 (0-0.2) K/uL Immature Gran # (Auto) 0.03 H (0.00-0.02) K/uL Sodium 133 L (136-145) mmol/L Potassium 3.7 (3.5-5.1) mmol/L Chloride 103 (98-107) mmol/L Carbon Dioxide 25 (21-32) mmol/L Anion Gap 5.0 (3-11) BUN 15 (7-18) mg/dl Creatinine 0.98 (0.6-1.4) mg/dl Est Cr Clr Drug Dosing Not Reportable Est GFR ( Amer) 101.6 ml/min Est GFR (Non-Af Amer) 87.7 ml/min BUN/Creatinine Ratio 15.6 (10-20) Glucose 249 H (70-99) mg/dl Lactate (0.4-2.0) mmol/L Calcium 9.2 (8.5-10.1) mg/dl Total Bilirubin 0.5 (0.2-1) mg/dl AST 67 H (15-37) U/L ALT 29 (12-78) Alkaline Phosphatase 82 (45-117) U/L Total Protein 9.0 H (6.4-8.2) gm/dl Albumin 2.4 L (3.4-5.0) gm/dl Globulin 6.6 H (2.5-4.0) gm/dl Albumin/Globulin Ratio 0.4 L (0.9-2) Lipase 103 (73-393) U/L SARS-CoV-2 (PCR) NEGATIVE (Negative) Influenza Type A (PCR) Negative (Neg) Influenza Type B (PCR) Negative (Neg) RSV (RT-PCR) Negative (Neg) 09/23/21 Range/Units 16:48 WBC (4.8-10.8) K/uL RBC (4.7-6.1) M/uL Hgb (14.0-18.0) g/dL Hct (42-52) % MCV (80-100) fL MCH (25-34) pg MCHC (32-36) g/dL RDW Std Deviation (36.4-46.3) fL RDW Coeff of Wil (11.5-14.5) % Plt Count (130-400) K/uL MPV (7.4-10.4) fL Immature Gran % (Auto) % Neut % (Auto) % Lymph % (Auto) % Gentry % (Auto) % Eos % (Auto) % Baso % (Auto) % Neut # (Auto) (1.4-6.5) K/uL Lymph # (Auto) (1.2-3.4) K/uL Gentry # (Auto) (0.11-0.59) K/uL Eos # (Auto) (0-0.5) K/uL Baso # (Auto) (0-0.2) K/uL Immature Gran # (Auto) (0.00-0.02) K/uL Sodium (136-145) mmol/L Potassium (3.5-5.1) mmol/L Chloride (98-107) mmol/L Carbon Dioxide (21-32) mmol/L Anion Gap (3-11) BUN (7-18) mg/dl Creatinine (0.6-1.4) mg/dl Est Cr Clr Drug Dosing Est GFR ( Amer) ml/min Est GFR (Non-Af Amer) ml/min BUN/Creatinine Ratio (10-20) Glucose (70-99) mg/dl Lactate 1.3 (0.4-2.0) mmol/L Calcium (8.5-10.1) mg/dl Total Bilirubin (0.2-1) mg/dl AST (15-37) U/L ALT (12-78) Alkaline Phosphatase (45-117) U/L Total Protein (6.4-8.2) gm/dl Albumin (3.4-5.0) gm/dl Globulin (2.5-4.0) gm/dl Albumin/Globulin Ratio (0.9-2) Lipase (73-393) U/L SARS-CoV-2 (PCR) (Negative) Influenza Type A (PCR) (Neg) Influenza Type B (PCR) (Neg) RSV (RT-PCR) (Neg) Imaging Data Radiologist's Impression: Venous Doppler Study 09/23/21 16:17 US venous doppler LE RT HISTORY: 51 years-old Male pain, redness, swelling acute pain and swelling of the right lower leg COMPARISON: Doppler study 08/16/2021, CT study 08/02/2021. TECHNIQUE: Multiple real-time sonographic images of the right lower extremity deep venous structures were obtained assessing grayscale appearance, color and spectral flow. FINDINGS: Limited study secondary to patient body habitus and subcutaneous edema. Enlarged right inguinal chain lymph nodes measure up to 5.4 x 3.6 x 4.1 cm, stable from prior CT. Normal flow, compressibility, phasicity and augmentation. IMPRESSION: 1. No sonographic evidence of deep venous thrombosis. 2. Right inguinal adenopathy redemonstrated. ACT 112: Negative or not required by law. The above report was generated using voice recognition software. It may contain grammatical, syntax or spelling errors. Electronically signed by: Jamey Dent M.D. 09/23/2021 6:07 PM MDM Narrative This 51-year-old male patient presents to the emergency department today for evaluation of cellulitis of the right lower extremity. The patient had some diarrhea for the past several days. He notes some stool got on the right foot, and since that time, he has noticed worsening infection of the right lower extremity. Given the redness, swelling, and pain of the right lower extremity, did elect to perform ultrasound imaging to evaluate for DVT. This was negative for DVT. Symptoms and work-up here in the ED most consistent with cellulitis. The patient has had history of severe cellulitis/infections and has required inpatient care. He has been septic associated with the cellulitis of this extremity. He has had difficult infections to manage. Patient was started on cefepime and daptomycin while here in the emergency department. He will be admitted to the hospitalist service for ongoing management of the infection. Please see hospitalist dictation regarding ongoing management and care of this patient. The chart was completed utilizing [employer] Speech voice recognition software. Grammatical errors, random word insertions, pronoun errors, and incomplete sentences are an occasional consequence of this system due to software limitations, ambient noise, and hardware issues. Any formal questions or concerns about the content, text, or information contained within the body of this dictation should be directly addressed to the provider for clarification. Impression & Plan Cellulitis of right leg, Diabetic peripheral neuropathy associated with type 2 diabetes mellitus, Diarrhea, Obesity, morbid (more than 100 lbs over ideal weight or BMI > 40) Discharge Plan Visit Data Chief Complaint: Diarrhea Stated Complaint: INFECTION TO R LEG, POSSIBLE RECTAL BLEED ED Provider: Sukhdev Muñiz ED Midlevel Provider: Janis Shell Discharge Problem: Cellulitis of right leg, Diabetic peripheral neuropathy associated with type 2 diabetes mellitus, Diarrhea, Obesity, morbid (more than 100 lbs over ideal weight or BMI > 40) Patient Disposition: Admitted As Inpatient Forms Stand Alone Forms: [employer] (formerly [employer]) Prescriptions Prescriptions: No Action (DME) pen needle, diabetic [Comfort EZ Pen [place]] 29 gauge x 1/2" needle See Rx Instructions .ROUTE .MEDSUPPLY Qty: 100 RF: 5 (DME) cane Device See Rx Instructions .ROUTE .MEDSUPPLY Qty: 1 RF: 0 cholecalciferol (vitamin D3) [Vitamin D3] 125 mcg (5,000 unit) tablet 5,000 unit PO DAILY Qty: 90 RF: 3 (DME) Dexcom G6 Rotary Operator Misc See Rx Instructions .Route Qty: 1 RF: 0 (DME) Dexcom G6 Sensor Device See Rx Instructions .Route Qty: 3 RF: 11 (DME) Dexcom G6 Transmitter Device See Rx Instructions .Route Qty: 1 RF: 3 rivaroxaban 20 mg tablet 20 mg PO QPM Qty: 90 RF: 3 topiramate 25 mg tablet 25 mg PO HS Qty: 60 RF: 0 (DME) OneTouch Ultra Blue Test Strip Strip See Rx Instructions .ROUTE .MEDSUPPLY Qty: 100 RF: 5 Wegovy 1.7 mg/0.75 mL pen injector 1.7 mg subcut Q7D Qty: 3 RF: 5 insulin asp prt-insulin aspart [Novolog Mix 70-30FlexPen U-100] 100 unit/mL (70-30) insulin pen See Rx Instructions .ROUTE .COMPLEX Qty: 90 RF: 5 (DME) Oxygen Home Liters Per Minute See Rx Instructions .Route RF: 0 venlafaxine 75 mg tablet extended release 24hr 75 mg PO QAM RF: 0 multivitamin Tablet 1 tab PO DAILY RF: 0 pantoprazole 40 mg tablet,delayed release (DR/EC) 40 mg PO QAM RF: 0 furosemide 20 mg tablet 100 mg PO QAM RF: 0 doxepin 10 mg capsule 10 mg PO HS RF: 0 fluoxetine 60 mg tablet 60 mg PO QAM RF: 0 hydroxyzine HCl 25 mg tablet 25 mg PO DAILY PRN (Reason: Anxiety) RF: 0 lisinopril 2.5 mg tablet 2.5 mg PO QAM RF: 0 albuterol sulfate [Ventolin HFA] 90 mcg/actuation HFA aerosol inhaler 2 puff INHALATION Q6H PRN (Reason: Shortness Of Breath Or Wheezing) Qty: 18 RF: 3 gabapentin 600 mg tablet 600 mg PO TID Qty: 90 RF: 3 aspirin 81 mg Tablet,Delayed Release (Dr/Ec) 81 mg PO QAM Qty: 30 RF: 0 metoprolol tartrate 50 mg Tablet 25 mg PO BID Qty: 30 RF: 0 rosuvastatin [Crestor] 20 mg tablet 20 mg PO HS RF: 0 Referrals Referrals: Pro,Mike Alarcon MD [Primary Care Provider] -
[2021-09-23] MEDS ORDERED: INSULIN ASPART 100 UNITS/ML VIAL SC STA (20:10)
[2021-09-24] MEDS ORDERED: PHARMACY GLYCEMIC MGMT CONSULT PRN (00:59)
[2021-09-24] MEDS ORDERED: ALBUTEROL HFA 8 GM INHALER INH PRN (00:59)
[2021-09-24] MEDS ORDERED: hydrOXYzine HCl 25 MG TAB PO PRN (00:59)
[2021-09-24] MEDS ORDERED: INSULIN ASPART 100 UNITS/ML VIAL SC ONE (02:30)
[2021-09-24] MEDS ORDERED: INSULIN GLARGINE SOLOSTAR 100 UNITS/ML 3 ML PEN SC ONE (02:30)
[2021-09-24] MEDS: METOPROLOL TARTRATE 25 MG TAB PO SCH ×3 (02:42→20:59)
[2021-09-24] MEDS: GABAPENTIN 600 MG TAB PO SCH ×4 (02:42→20:58)
[2021-09-24] MEDS: DOXEPIN HCL 10 MG CAPSULE PO SCH ×2 (02:42→20:58)
[2021-09-24] MEDS: TOPIRAMATE 25 MG TAB PO SCH ×2 (02:43→20:58)
[2021-09-24] MEDS: RIVAROXABAN 20 MG TAB PO SCH ×2 (02:43→19:14)
[2021-09-24] MEDS ORDERED: DEXTROSE 50% 50 ML SYRINGE IV PRN (03:00)
[2021-09-24] MEDS ORDERED: GLUCOSE 10 TABS/TUBE PO PRN (03:00)
[2021-09-24] MEDS ORDERED: GLUCOSE 40% GEL 15 GM TUBE PO PRN (03:00)
[2021-09-24] MEDS ORDERED: GLUCAGON FOR INJ 1 MG VIAL IM PRN (03:00)
[2021-09-24] MEDS ORDERED: CARBOHYDRATES FOR HYPOGLYCEMIA PO PRN (03:00)
[2021-09-24] MEDS ORDERED: PNEUMOCOCCAL Polysaccharide Vaccine 25mcg/0.5mL vial/Syr IM ONE (03:30)
[2021-09-24] MEDS ORDERED: CEFEPIME 2,000 MG in SYRINGE 0 ML IV SCH (05:00)
[2021-09-24 07:57] LABS: Basophils # (auto) 0.03 K/uL (0-0.2); Basophils % (auto) 0.5 %; Eosinophils # (auto) 0.32 K/uL (0-0.5); Eosinophils % (auto) 5.1 %; Hematocrit (blood only) 33.7 % (42-52); Hemoglobin 10.7 g/dL (14.0-18.0); Immature Granulocytes # (auto) 0.06 K/uL (0.00-0.02); Lymphocytes % (auto) 28.5 %; Mean Corpuscular Hemoglobin 27.4 pg (25-34); Mean Corpuscular Hgb Conc 31.8 g/dL (32-36); Mean Corpuscular Volume 86.4 fL (80-100); Mean Platelet Volume 9.3 fL (7.4-10.4); Monocytes # (auto) 0.75 K/uL (0.11-0.59); Monocytes % (auto) 11.9 %; Neutrophils # (auto) 3.35 K/uL (1.4-6.5); Platelet Count 276 K/uL (130-400); RDW Coefficient of Variation 15.8 % (11.5-14.5); RDW Standard Deviation 49.9 fL (36.4-46.3); White Blood Count 6.31 K/uL (4.8-10.8)
[2021-09-24] MEDS: ASPIRIN 81 MG ECTAB PO SCH (08:10)
[2021-09-24] MEDS: VENLAFAXINE HCL XR 75 MG CAPXR PO SCH (08:10)
[2021-09-24] MEDS: PANTOprazole 40 MG TAB PO SCH (08:10)
[2021-09-24] MEDS: FLUoxetine HCL 20 MG CAP PO SCH (08:11)
[2021-09-24] MEDS: FUROSEMIDE 20 MG TAB PO SCH (08:11)
[2021-09-24] MEDS: lisinopril 2.5 MG TAB PO SCH (08:11)
[2021-09-24 08:35] LABS: BUN Creatinine Ratio 16.9 (10-20); Calcium 8.6 mg/dl (8.5-10.1); Creatinine Clr Calc Pharmacy 172.3 ml/min; Est GFR (African American) 116.4 ml/min; Est GFR (Non-African American) 100.5 ml/min; Potassium 3.4 mmol/L (3.5-5.1)
[2021-09-24] MEDS: INSULIN ASPART 100 UNITS/ML VIAL SC SCH ×4 (08:41→21:03)
[2021-09-24] MEDS ORDERED: INSULIN GLARGINE SOLOSTAR 100 UNITS/ML 3 ML PEN SC SCH (09:00)
--- NOTE | 2021-09-24 10:51 | Billing Data ---
Date of Service September 23, 2021 Coding Level of Care Code INT OBSERVATION CARE 48M LVL 2
--- NOTE | 2021-09-24 12:08 | Pharmacy Report ---
Pharmacy Glycemic Short Note 2 - Date of Service September 24, 2021 - Glycemic Short BSG Results (Last 24 hours): 09/23/21 09/23/21 09/24/21 12:15 20:28 00:23 Glucose 249 H POC Glucose 198 H 239 H 09/24/21 09/24/21 09/24/21 02:06 05:51 07:43 Glucose 208 H POC Glucose 234 H 211 H 09/24/21 09/24/21 07:58 11:36 Glucose POC Glucose 215 H 226 H OUTPATIENT ANTIDIABETIC REGIMEN: * Ozempic SQ weekly * Novolog 70/30 120 units qAM * Novolog 60 units TIDM ASSESSMENT: * Ms Bejarano is a 51 y/o M with a PMH of T2DM who presents with worsening cellulitis. * Admitting BSG was 198 mg/dL and patient was given Lantus 50 units. * Overnight BSGs were 239-234 mg/dL and patient received additional 7 units overnight. * Per previous admission, patient was on Lantus 10 units BID + Novolog CF 15 CR 6 ---> BSGs were mid -200s range indicating patient requires more. * Continue with scale Lantus of 40-60 units once daily. * Continue Novolog weight-based stress of 2-3 PLAN FOR INPATIENT GLYCEMIC CONTROL: * Hold outpatient oral diabetes medications * Basal insulin * Lantus 40-60 units SQ qAM * Bolus insulin * NovoLog per scale ACHS or Q6hrs while NPO * Goal Range: Low 110 mg/dL - High 140 mg/dL * Correction Factor: 15 mg/dL/unit * Nutritional / Prandial insulin per carb ratio of 1 unit per 4 grams CHO consumed PLAN FOR DISCHARGE: * TBD
--- NOTE | 2021-09-24 13:15 | Medical Student Progress Note ---
Date of Service September 24, 2021 Assessment & Plan (1) Diarrhea: Diarrhea type: unspecified type Qualified Code(s): R19.7 - Diarrhea, unspecified (2) Cellulitis: Laterality: right Site of cellulitis: extremity Site of cellulitis of extremity: lower extremity Qualified Code(s): L03.115 - Marissa lulitis of right lower limb Plan: RLE Cellulitis - discontinue Cefepime - discontinue Daptomycin - Initially started on Cefepime for concerns of possible pseudomonas infection from his stool. However, upon review of his case it is unlikely his cellulitis is from pseudomonas as he noticed the redness in his leg very close to the incident of diarrhea in the shower. - Initially started on Daptomycin for concerns of MRSA infection. However review of labs shows negative MRSA nares from 08/01/21 therefore MRSA infection unlikely. - start Ceftriaxone, to cover Gram Positive and some Gram Negative that does not include pseudomonas. - Wound Care consulted Diarrhea/Gastroenteritis -Gastroenteritis vs gastroparesis, more likely gastroenteritis. -Stool GI PCR panel ordered, not yet collected. -Diarrhea is not concerning at this time, since he has not other Sx that suggest infection. No recent fevers. And has not noticed blood in his stool. Pt also states that he feels his bowel movements are improving. -Will monitor patient's symptoms. DMT2 -latest BSG 234. Glycemic consult in place. - Latest A1c 6.7 from 09/08. As high as 10.7 on 08/25/20. -Continue to glucose checks. HTN: -Continued lisinopril 2.5mg and metoprolol tartrate 25mg. -Continue to monitor vitals. History of CHF: -Last echo with EF 60-65% in July of 2021. -Continued metoprolol tartrate 25mg. -Usually on O2 at home at night, ordered 1L O2 [facility] for hospital course. Dispo: Observation Code Status: Full code DVT Prophylaxis: Xarelto 20mg (home med) Diet: Diabetic Diet Admission and Anticipated Discharge Date Admission Date: September 23, 2021 Supervising Attestation I personally examined the patient and verified all spear points of history and exam, discussed case, and agree with decision making with Pia Rider MS2 Foot feeling better, no painbut he also notes that he does not really have much feeling there at all. Does note that the redness is improved.. Otherwise feeling reasonably okay. Annoyed that the [employer] beat the bills, in [place], on a snowy day Vitals noted, in general he is awake and alert pleasant no distress. HEENT normocephalic atraumatic mucous membranes moist. Breathing unlabored no accessory muscle use good effort. Right lower extremity largely with venous stasis type changes, no real significant erythema. There is a small shallow ulcer on his right harkins that is clean without surrounding erythema or exudate, there are other skin changes that are dressed, again without much of any tracking erythema. He has very diminished sensation to his footand was not able to feel light touch or light vibration, and was really only able to feel anything once I added deep pressure. Cellulitisreally seems to be very mild. Given that he had more redness last night notes resolved, certainly seems consistent with having had cellulitis, but it seems to be quickly improving. It would be extremely unlikely that feces on his foot would lead to cellulitis as quickly as he noticed it (having had a bowel movement on his foot in the shower, and then almost immediately thereafter noticing redness)I suspect with his neuropathy, having the bowel movement on his foot was really what led to him noticing that his foot was red, rather than causing the redness itself. He is an uncontrolled diabetic, and therefore certainly would put him at risk for pseudomonal infection, but his current situation does not really seem consistent with that. 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 That said, we will stop the cefepime/all gram- negative coverage, and simply continue with daptomycin and follow. If he continues to show improvement into tomorrow, possibly home on p.o. antibiotics with close follow-up. Otherwise as above Subjective 51 y/o male with h/o T2DM, HTN and LT below knee amputation presents with CC of RLE Rash. He states he has had diarrhea for the past few days. While he was showering he had an episode of diarrhea and some stool landed on his RT leg. Since that time he noticed a rash begin to develop in his RLE. States discomfort associated with the development of the rash. He presented to the ER on 09/23 for evaluation for suspected Cellulitis. Denies any fevers, chills and NS. He estimates around 6 prior cellulitis infections. He states he is not serious about managing his DM. today: He states the discomfort in his leg has improved and denies that the cellulitis is getting larger in size. He is Afebrile and in stable condition. Review of Systems Review of Systems: All systems reviewed & are unremarkable except as noted in Subjective Physical Exam Physical Exam: General: NAD, responding appropriately to questions Cardio: RRR, no rubs, no murmurs or gallops Pulm: Lungs clear to auscultation BL Skin: poorly demarcated flat Erythematous RLE lesion from his ankle to below the knee. No visible discharge. No blood. There is a small open wound to his RT ankle but it does not appear infected. Neuro: A fair amount of pressure needs to be placed to his LLE to elicit sensati on. He has no sensation to light touch to the same area. Results & Data ([facility]) Vital Signs (Past 12 Hours) Vital Signs Temp Pulse Resp BP Pulse Ox 09/24/21 07:31 36.8 C 75 16 140/99 98 Laboratory Results Laboratory Results WBC 6.31 K/uL (4.8-10.8) 09/24/21 07:43 RBC 3.90 M/uL (4.7-6.1) L 09/24/21 07:43 Hgb 10.7 g/dL (14.0-18.0) L 09/24/21 07:43 Hct 33.7 % (42-52) L 09/24/21 07:43 MCV 86.4 fL (80-100) 09/24/21 07:43 MCH 27.4 pg (25-34) 09/24/21 07:43 MCHC 31.8 g/dL (32-36) L 09/24/21 07:43 RDW Std Deviation 49.9 fL (36.4-46.3) H 09/24/21 07:43 RDW Coeff of Wil 15.8 % (11.5-14.5) H 09/24/21 07:43 Plt Count 276 K/uL (130-400) 09/24/21 07:43 MPV 9.3 fL (7.4-10.4) 09/24/21 07:43 Immature Gran % (Auto) 1.0 % 09/24/21 07:43 Neut % (Auto) 53.0 % 09/24/21 07:43 Lymph % (Auto) 28.5 % 09/24/21 07:43 Castro % (Auto) 11.9 % 09/24/21 07:43 Eos % (Auto) 5.1 % 09/24/21 07:43 Baso % (Auto) 0.5 % 09/24/21 07:43 Neut # (Auto) 3.35 K/uL (1.4-6.5) 09/24/21 07:43 Lymph # (Auto) 1.80 K/uL (1.2-3.4) 09/24/21 07:43 Castro # (Auto) 0.75 K/uL (0.11-0.59) H 09/24/21 07:43 Eos # (Auto) 0.32 K/uL (0-0.5) 09/24/21 07:43 Baso # (Auto) 0.03 K/uL (0-0.2) 09/24/21 07:43 Immature Gran # (Auto) 0.06 K/uL (0.00-0.02) H 09/24/21 07:43 Sodium 137 mmol/L (136-145) 09/24/21 07:43 Potassium 3.4 mmol/L (3.5-5.1) L 09/24/21 07:43 Chloride 106 mmol/L (98-107) 09/24/21 07:43 Carbon Dioxide 25 mmol/L (21-32) 09/24/21 07:43 Anion Gap 6.0 (3-11) 09/24/21 07:43 BUN 14 mg/dl (7-18) 09/24/21 07:43 Creatinine 0.83 mg/dl (0.6-1.4) 09/24/21 07:43 Est Cr Clr Drug Dosing 172.3 ml/min 09/24/21 07:43 Est GFR ( Amer) 116.4 ml/min 09/24/21 07:43 Est GFR (Non-Af Amer) 100.5 ml/min 09/24/21 07:43 BUN/Creatinine Ratio 16.9 (10-20) 09/24/21 07:43 Glucose 208 mg/dl (70-99) H 09/24/21 07:43 POC Glucose 226 mg/dl (70-99) H 09/24/21 11:36 Lactate 1.3 mmol/L (0.4-2.0) 09/23/21 16:48 Calcium 8.6 mg/dl (8.5-10.1) 09/24/21 07:43 Total Bilirubin 0.5 mg/dl (0.2-1) 09/23/21 12:15 AST 67 U/L (15-37) H 09/23/21 12:15 ALT 29 (12-78) 09/23/21 12:15 Alkaline Phosphatase 82 U/L (45-117) 09/23/21 12:15 C-Reactive Protein 7.88 mg/dl (0-0.29) H 09/24/21 07:43 Total Protein 9.0 gm/dl (6.4-8.2) H 09/23/21 12:15 Albumin 2.4 gm/dl (3.4-5.0) L 09/23/21 12:15 Globulin 6.6 gm/dl (2.5-4.0) H 09/23/21 12:15 Albumin/Globulin Ratio 0.4 (0.9-2) L 09/23/21 12:15 Lipase 103 U/L (73-393) 09/23/21 12:15 SARS-CoV-2 (PCR) NEGATIVE (Negative) 09/23/21 16:31 Influenza Type A (PCR) Negative (Neg) 09/23/21 16:31 Influenza Type B (PCR) Negative (Neg) 09/23/21 16:31 RSV (RT-PCR) Negative (Neg) 09/23/21 16:31 Impressions Venous Doppler Study 09/23/21 16:17 US venous doppler LE RT HISTORY: 51 years-old Male pain, redness, swelling acute pain and swelling of the right lower leg COMPARISON: Doppler study 08/16/2021, CT study 08/02/2021. TECHNIQUE: Multiple real-time sonographic images of the right lower extremity deep venous structures were obtained assessing grayscale appearance, color and spectral flow. FINDINGS: Limited study secondary to patient body habitus and subcutaneous edema. Enlarged right inguinal chain lymph nodes measure up to 5.4 x 3.6 x 4.1 cm, stable from prior CT. Normal flow, compressibility, phasicity and augmentation. IMPRESSION: 1. No sonographic evidence of deep venous thrombosis. 2. Right inguinal adenopathy redemonstrated. ACT 112: Negative or not required by law. The above report was generated using voice recognition software. It may contain grammatical, syntax or spelling errors. Electronically signed by: Jamey Dent M.D. 09/23/2021 6:07 PM Diagnostic Findings 09/23/21 09/24/21 09/24/21 20:28 00:23 02:06 Glucose POC Glucose 198 H 239 H 234 H 09/24/21 09/24/21 09/24/21 05:51 07:43 07:58 Glucose 208 H POC Glucose 211 H 215 H 09/24/21 11:36 Glucose POC Glucose 226 H
[2021-09-24] MEDS ORDERED: DAPTOmycin 475 MG in SYRINGE 0 ML IV SCH (18:00)
--- NOTE | 2021-09-24 18:22 | Billing Data ---
Date of Service September 24, 2021 Coding Level of Care Code 40584 Subseq Obs Care Lvl 3
[2021-09-25] MEDS: FUROSEMIDE 20 MG TAB PO SCH (07:57)
[2021-09-25] MEDS: FLUoxetine HCL 20 MG CAP PO SCH (07:57)
[2021-09-25] MEDS: PANTOprazole 40 MG TAB PO SCH (07:57)
[2021-09-25] MEDS: GABAPENTIN 600 MG TAB PO SCH (07:58)
[2021-09-25] MEDS: lisinopril 2.5 MG TAB PO SCH (07:58)
[2021-09-25] MEDS: METOPROLOL TARTRATE 25 MG TAB PO SCH (07:58)
[2021-09-25] MEDS: ASPIRIN 81 MG ECTAB PO SCH (07:59)
[2021-09-25] MEDS: VENLAFAXINE HCL XR 75 MG CAPXR PO SCH (07:59)
[2021-09-25 08:10] LABS: Basophils # (auto) 0.01 K/uL (0-0.2); Basophils % (auto) 0.1 %; Eosinophils # (auto) 0.35 K/uL (0-0.5); Eosinophils % (auto) 4.6 %; Hematocrit (blood only) 32.2 % (42-52); Hemoglobin 10.3 g/dL (14.0-18.0); Immature Granulocytes # (auto) 0.06 K/uL (0.00-0.02); Immature Granulocytes % (auto) 0.8 %; Lymphocytes # (auto) 1.85 K/uL (1.2-3.4); Lymphocytes % (auto) 24.1 %; Mean Corpuscular Hemoglobin 27.8 pg (25-34); Mean Corpuscular Volume 86.8 fL (80-100); Mean Platelet Volume 9.3 fL (7.4-10.4); Monocytes # (auto) 0.65 K/uL (0.11-0.59); Monocytes % (auto) 8.5 %; Neutrophils # (auto) 4.77 K/uL (1.4-6.5); Neutrophils % (auto) 61.9 %; Platelet Count 288 K/uL (130-400); RDW Coefficient of Variation 15.6 % (11.5-14.5); RDW Standard Deviation 49.7 fL (36.4-46.3); Red Blood Count 3.71 M/uL (4.7-6.1); White Blood Count 7.69 K/uL (4.8-10.8)
--- NOTE | 2021-09-25 08:23 | Hospitalist Progress Note ---
Date of Service September 25, 2021 Assessment & Plan (1) Diarrhea: Plan: RLE Cellulitis - latest Nasal Swab from 09/24 returned positive for MRSA, therefore restart on Daptomycin. - Bactrim DS b.i.d. x 3 days on discharge to complete 5 days of ABx Tx - recommend close f/u with PCP Diarrhea/Gastroenteritis - resolved, no longer having diarrhea or ABD pain DMT2 -latest BSG 159. - Latest A1c 6.7 from 09/08. As high as 10.7 on 08/25/20. -Continue with home DM TX regime HTN: -Continued lisinopril 2.5mg and metoprolol tartrate 25mg. History of CHF: -Last echo with EF 60-65% in July of 2021. -Continued metoprolol tartrate 25mg. DVT: xarelto FEN/GI: diabetic diet Dispo: discharge this afternoon, pt agrees with plan Code: full code Admission and Anticipated Discharge Date Admission Date: September 23, 2021 Subjective He states he is doing much better since being admitted to the hospital. Denies any subjective fever. States that this morning when he woke there was a lot of sweat on the pillows but attributes this to the mattress. He has not had a bowel movement in 1.5 days and states that the feels as if one is coming this morning. He states his leg looks better and there is much less pain compared to yesterday particularly in the area of his ankle. He feels well enough to go home today. Review of Systems Review of Systems: All systems reviewed & are unremarkable except as noted in Subjective Physical Exam Physical Exam: General: NAD, pleasant affect, responding appropriately to questions Cardio: RRR, no rubs, no murmurs or gallops ABD: No pain to palpation Neuro: Continues to have loss of sensation to his RLE. He endorses sensation with and without palpation to that area. Skin: poorly demarcated flat Erythematous RLE lesion from his ankle to below the knee. No visible discharge. No blood. There is a small open wound to his RT ankle but it does not appear infected. The lesion is smaller and less red compared to yesterday. Diagnostics: Positive for MRSA on nasal snare Results & Data Results & Data ([facility]) Vital Signs (Past 12 Hours) Vital Signs Temp Pulse Resp BP Pulse Ox 09/25/21 07:50 36.9 C 83 16 129/75 99 09/24/21 23:00 36.9 C 71 22 101/74 96 Laboratory Results 09/24/21 09/24/21 09/24/21 07:43 11:36 17:18 Glucose 208 H POC Glucose 226 H 159 H 09/24/21 20:53 Glucose POC Glucose 154 H (1) Diarrhea Diarrhea type: unspecified type Qualified Code(s): R19.7 - Diarrhea, unspecified
[2021-09-25] MEDS ORDERED: INSULIN GLARGINE SOLOSTAR 100 UNITS/ML 3 ML PEN SC SCH (09:00)
[2021-09-25 09:06] LABS: BUN Creatinine Ratio 14.8 (10-20); Calcium 8.7 mg/dl (8.5-10.1); Creatinine Clr Calc Pharmacy 168.3 ml/min; Est GFR (African American) 115.3 ml/min; Est GFR (Non-African American) 99.5 ml/min
[2021-09-25] MEDS: INSULIN ASPART 100 UNITS/ML VIAL SC SCH ×2 (09:08→13:21)
[2021-09-25] MEDS ORDERED: ACETAMINOPHEN 325 MG TAB PO PRN (09:20)
--- NOTE | 2021-09-25 11:16 | Pharmacy Report ---
Pharmacy Glycemic Short Note 2 - Date of Service September 25, 2021 - Glycemic Short BSG Results (Last 24 hours): 09/24/21 09/24/21 09/24/21 11:36 17:18 20:53 Glucose POC Glucose 226 H 159 H 154 H 09/25/21 09/25/21 07:34 08:50 Glucose 217 H POC Glucose 232 H OUTPATIENT ANTIDIABETIC REGIMEN: * Ozempic SQ weekly - no longer taking * Novolog 70/30 120 units HS + 60 units TIDM ASSESSMENT: 09/25/21 * Patient's BSGs yesterday were [phone] mg/dL and fasting today is 232 mg/dL. * Per scale, patient received Lantus 60 units today. Adjust scale upwards and remove Lantus 40 units dose. * Continue Novolog Background * Ms Bejarano is a 51 y/o M with a PMH of T2DM who presents with worsening cellulitis. * Admitting BSG was 198 mg/dL and patient was given Lantus 50 units. * Overnight BSGs were 239-234 mg/dL and patient received additional 7 units overnight. * Per previous admission, patient was on Lantus 10 units BID + Novolog CF 15 CR 6 ---> BSGs were mid -200s range indicating patient requires more. * Continue with scale Lantus of 40-60 units once daily. * Continue Novolog weight-based stress of 2-3 PLAN FOR INPATIENT GLYCEMIC CONTROL: * Hold outpatient oral diabetes medications * Basal insulin * Lantus 50-70 units SQ qAM * Bolus insulin * NovoLog per scale ACHS or Q6hrs while NPO * Goal Range: Low 110 mg/dL - High 140 mg/dL * Correction Factor: 15 mg/dL/unit * Nutritional / Prandial insulin per carb ratio of 1 unit per 4 grams CHO consumed PLAN FOR DISCHARGE: * Patient follow with outpatient endocrinology. * Recommend continuing to work with them to improve blood sugar control.
--- NOTE | 2021-09-25 11:19 | Discharge Summary ---
Date of Service September 25, 2021 Admission HPI Per Admitting Provider Wyatt is a 51 year old male with past medical history of T2DM, below knee amputation of LLE, CHF, DVT in 2012 on Xarelto, HTN who came in to the ED with a 3 days of worsening right lower extremity pain, redness, and swelling. Patient says Thursday he started feeling mildly sick and had a few soft stools, but still in control of his bowel movements at that time. Thursday patient started to feel "weak, lethargic, hot, and dizzy" and developed diarrhea with stool incontinence. If he made any sort of movement he would have an episode of diarrhea he could not stop. While in the shower that day he got some of his fe wayne on his right foot and later on in the day developed pain and erythema at his right foot at the toes. The foot pain and erythema worsened Thursday and Thursday, and Thursday morning he noticed his second toe was especially erythematous as well as a new ulcer at the distal anterior leg. A licensed optical dispenser helping him told him there was a small amount of blood in his stool but that he was also bleeding mildly at the scrotum. Patient took Imodium in the morning to help with his diarrhea and said he has not had a bowel movement since then. Patient decided to come in to the ED following the progression of these events. Of note patient was previously hospitalized at [facility] 7 weeks ago for sepsis relating to cellulitis where he was diagnosed with CHF and GI ulcer. He came to the [facility] on for a covid test for a planned EGD that as scheduled for 09/24. Denies history of MRSA or any known history of C. Diff. Denies being on antibiotics prior to or during diarrhea onset. Denies fevers, chills, sweats, shortness of breath, chest pain, headaches, nausea, vomiting. Denies tobacco products, recent alcohol use, and recreational drug use. Admission Exam Per Admitting Provider Constitutional: WD/WN, vitals as above Eyes: PERRL, conjunctivae normal, anicteric sclerae ENMT: external ear and nose normal, oropharynx normal Neck: trachea midline, no thyromegaly Respiratory: normal respiratory effort, lungs clear to auscultation Cardiovascular: RRR, no murmur, no edema Gastrointestinal (Abdomen): normal bowel sounds, soft, nontender, no hepatosplenomegaly Skin: Left lower extremity with amputation below the knee and without erythema or swelling. Right lower extremity with signs of venous stasis and lymphedema. Right lower extremity second digit with erythema. ~1cm superficial ulcer with looking to be about Stage 2 or 3 on anterior distal right harkins. Scattered tender petechiae on medial right thigh and throughout leg distal to right knee. Bottom of scrotum with mild erythema. 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 Psychiatric: A+Ox3, euthymic affect Principal Diagnosis RLE cellulitis Discharge Exam Constitutional: Tired, but well appearing 51-year-old male in NAD. Cardiac: NRRR, S1/S2 present without m/r/g Pulmonary: CTAB w/o crackles or wheezes Abdominal: NABS, abdomen is soft, nontender, nondistended Extremities: Evidence of improved erythema within the anterior R calf surrounded by venous stasis changes. Scaling appreciated. Evidence of superficial abrasion noted. No ulcer. Distal perfusion in tact. Discharge Data Allergies Allergy/AdvReac Type Severity Reaction Status Date / Time clindamycin Allergy Intermediate Hives Verified 09/23/21 16:40 vancomycin AdvReac Intermediate KYE Verified 09/23/21 16:40 SYNDROME piperacillin [From Zosyn] AdvReac Mild skin rash, Verified 09/23/21 16:40 itching, mild tazobactam [From Zosyn] AdvReac Mild skin rash, Verified 09/23/21 16:40 itching, mild Consultations 09/23/21 18:47 ED Decision to Admit Stat Ordered Studies 09/23/21 16:17 US venous doppler LE RT Stat IMPRESSION: 1. No sonographic evidence of deep venous thrombosis. 2. Right inguinal adenopathy redemonstrated. Hospital Course (1) Cellulitis of right leg: (2) Diabetes type 2, uncontrolled: (3) Hypertension: (4) Diarrhea: (5) History of CHF (congestive heart failure): 51 year old male past medical history T2DM, below knee amputation of LLE, CHF, DVT in 2013 on Xarelto, HTN admitted for cellulitis of right lower extremity. Cellulitis of right leg w/ ulcer: -Venous Doppler RLE w/o evidence of DVT. -s/p cefepime and daptomycin while here -Opt to cover for MRSA give frequent contact with healthcare system; lower suspicion for Pseudomonas at this time -Bactrim DS b.i.d. x 3 days on discharge, consider longer course p.r.n. -Demonstrated clinical improvement prior to discharge Diarrhea: -Gastroenteritis vs gastroparesis, more likely gastroenteritis. -Resolved prior to discharge. Stool PCR ordered however, because of symptom improvement, was unable to collect sample -If worsening, consider outpatient w/u Diabetes: -Pharmacy managed BSGs while here -A1c 6.7% in August -Continue home medications on discharge HTN: -Continued lisinopril 2.5mg and metoprolol tartrate 25mg. -Continue to monitor vitals. History of CHF: -Last echo with EF 60-65% in July of 2021. -Continued metoprolol tartrate 25mg. -Usually on O2 at home at night, ordered 1L O2 NC HS for hospital course. Dispo: FULL CODE Total Time Total Time Spent Total Time Spent (In Minutes): <30 Discharge Plan Discharge Items Patient Disposition: Home - Self-Care Reason For Visit: CELLULITIS Discharge Diagnosis: RLE cellulitis Condition on Discharge: Fair Activity: Per Instructions section Non-emergency contact: Primary Care Provider and Specialist Call non-emergency contact if: you have any medication questions, your symptoms worsen and your temperature is above 101 Follow-up/Referrals: Mike Isidro MD [Primary Care Provider] - 10/01/21 1:30 pm (You will be seeing Carlo Engel PA-C.) Diet: Carb Consistent or DM2 Addtl Attending Provider Instructions: You were seen in [facility] for evaluation of cellulitis involving her right leg. Upon your arrival here, you underwent several evaluations to determine the extent of the cellulitis. Thankfully, it appears localized. While you were initially treated on broad-spectrum antibiotics, these were narrowed to cover for the relevant bugs. Upon discharge, he will transition from IV to oral antibiotics. Upon discharge, please note the following medication changes/additions/deletions: - Initiate Bactrim DS, twice daily, for 3 days upon discharge Continue wearing compression stockings and regularly checking your legs for wounds. If you have concerns, please contact your primary care physician for evaluation. Please follow-up with your primary care physician within 1 to 2 weeks to review this visit. At that time, please discuss your medications and examine your cellulitis to determine if an extended course is warranted. In the interim, if you notice any worsening redness, discharge, fever, chills, night sweats, lethargy, chest pain, shortness of breath, or other worrisome symptoms, please report to the ER immediately for evaluation. It was a pleasure for caring for you while you were here, and we wish you all the best in your recovery. Pending Studies at Discharge: No Stand-Alone Forms: [facility], Smoking Cessation Medications and DC Order Prescriptions: New sulfamethoxazole-trimethoprim [Bactrim DS] 800-160 mg tablet 1 tab PO BID 3 Days Qty: 6 RF: 0 Continued (DME) pen needle, diabetic [Comfort EZ Pen [place]] 29 gauge x 1/2" needle See Rx Instructions .ROUTE .MEDSUPPLY Qty: 100 RF: 5 (DME) cane Device See Rx Instructions .ROUTE .MEDSUPPLY Qty: 1 RF: 0 cholecalciferol (vitamin D3) [Vitamin D3] 125 mcg (5,000 unit) tablet 5,000 unit PO DAILY Qty: 90 RF: 3 (DME) Dexcom G6 Brush Cutter Misc See Rx Instructions .Route Qty: 1 RF: 0 (DME) Dexcom G6 Sensor Device See Rx Instructions .Route Qty: 3 RF: 11 (DME) Dexcom G6 Transmitter Device See Rx Instructions .Route Qty: 1 RF: 3 rivaroxaban 20 mg tablet 20 mg PO QPM Qty: 90 RF: 3 topiramate 25 mg tablet 25 mg PO HS Qty: 60 RF: 0 (DME) blood sugar diagnostic Strip See Rx Instructions .ROUTE .MEDSUPPLY Qty: 100 RF: 5 Wegovy 1.7 mg/0.75 mL pen injector 1.7 mg subcut Q7D Qty: 3 RF: 5 insulin asp prt-insulin aspart [Novolog Mix 70-30FlexPen U-100] 100 unit/mL (70-30) insulin pen See Rx Instructions .ROUTE .COMPLEX Qty: 90 RF: 5 (DME) Oxygen Home Liters Per Minute See Rx Instructions .Route RF: 0 venlafaxine 75 mg tablet extended release 24hr 75 mg PO QAM RF: 0 multivitamin Tablet 1 tab PO DAILY RF: 0 pantoprazole 40 mg tablet,delayed release (DR/EC) 40 mg PO QAM RF: 0 furosemide 20 mg tablet 100 mg PO QAM RF: 0 doxepin 10 mg capsule 10 mg PO HS RF: 0 fluoxetine 60 mg tablet 60 mg PO QAM RF: 0 hydroxyzine HCl 25 mg tablet 25 mg PO DAILY PRN (Reason: Anxiety) RF: 0 lisinopril 2.5 mg tablet 2.5 mg PO QAM RF: 0 albuterol sulfate [Ventolin HFA] 90 mcg/actuation HFA aerosol inhaler 2 puff INHALATION Q6H PRN (Reason: Shortness Of Breath Or Wheezing) Qty: 18 RF: 3 gabapentin 600 mg tablet 600 mg PO TID Qty: 90 RF: 3 aspirin 81 mg Tablet,Delayed Release (Dr/Ec) 81 mg PO QAM Qty: 30 RF: 0 metoprolol tartrate 50 mg Tablet 25 mg PO BID Qty: 30 RF: 0 rosuvastatin [Crestor] 20 mg tablet 20 mg PO HS RF: 0 Discharge Orders: Discharge Order (Routine); Ordered 09/25/21 Ordered By: Jose Ley/Other Patient Handouts: Wound Infection Tx, ED Cellulitis Admission Data Admit Date/Time: 09/23/21 19:22 Attending Provider: Jose Jerez Admit Provider: Fareed Johansen Primary Care Provider: Mike Isidro Other Providers: Reynold Brennan Other Interventions: Discharge Summary Assessment (RN) Last Done: 09/25/21 13:11 Supervising Physician Co-Signing Physician Notes I personally examined the patient and verified all spear points of history and exam, discussed case, and agree with decision making with Dr Hannah foot feeling a good deal better feels up to going home and safe with going home Vitals noted, in general he is awake and alert pleasant no distress. HEENT normocephalic atraumatic mucous membranes moist. Breathing unlabored no accessory muscle use good effort. Right lower extremity largely with venous stasis type changes, no real significant erythema. even area that was slightly red yesterday is now totally normal. no crepitis no tenderness. Cellulitisreally seems to be very mild. essentially resolved. given (+) MRSA nares have to account for this as a possibility - but obviously can't be definitive that MRSA is causative - just that it needs to be accounted for. home on bactrim. close outpt f/u. Otherwise as above Resident Activity Tracking Resident Involvement: Resident Care Provided Care Provided: Adult Hospital Medicine
--- NOTE | 2021-09-25 17:56 | Billing Data ---
Date of Service September 25, 2021 Coding Level of Care Code D/C DAY MANAGEMENT <30 MINS
== END 2021-09-25 15:04 | disposition home or self-care (01) ==
LOC: 3N 11:28 → ED 11:28 → SUATTDRO 19:22 → 3N 09-24 00:43

== ENCOUNTER 2022-06-11 18:09 | Inpatient (IN) ==
[2022-06-11 18:51] LABS: Basophils # (auto) 0.04 K/uL (0-0.2); Basophils % (auto) 0.4 %; Eosinophils # (auto) 0.53 K/uL (0-0.50); Eosinophils % (auto) 5.5 %; Hematocrit (blood only) 36.6 % (40.1-51.0); Hemoglobin 12.2 g/dl (14.0-18.0); Immature Granulocytes # (auto) 0.03 K/uL (0.00-0.02); Immature Granulocytes % (auto) 0.3 %; Lymphocytes # (auto) 2.58 K/uL (1.2-3.4); Lymphocytes % (auto) 26.7 %; Mean Corpuscular Hemoglobin 29.4 pg (25.0-34.0); Mean Corpuscular Hgb Conc 33.3 g/dL (32.0-36.0); Mean Corpuscular Volume 88.2 fL (80.0-100.0); Mean Platelet Volume 9.6 fL (9.4-12.4); Monocytes # (auto) 0.92 K/uL (0.24-0.82); Monocytes % (auto) 9.5 %; Neutrophils # (auto) 5.55 K/uL (1.4-6.5); Neutrophils % (auto) 57.6 %; Platelet Count 244 K/uL (130-400); RDW Coefficient of Variation 13.8 % (11.5-14.5); RDW Standard Deviation 44.4 fL (36.4-46.3); Red Blood Count 4.15 M/uL (4.63-6.08); White Blood Count 9.65 K/ul (4.8-10.8)
[2022-06-11 19:11] LABS: Alanine Aminotransferase 13 U/L (7-52); Albumin Globulin Ratio 0.9 (0.9-2); Albumin Level 3.4 gm/dl (3.4-5.0); Alkaline Phosphatase 65 U/L (34-104); Anion Gap 8 (3-11); Aspartate Aminotransferase 17 U/L (13-39); BUN Creatinine Ratio 9.9 (10-20); Bilirubin,Total 0.6 mg/dl (0.2-1.0); Blood Urea Nitrogen 10 mg/dl (6-23); Carbon Dioxide 28 mmol/L (21-32); Chloride 100 mmol/L (98-107); Est GFR (African American) 97.3 ml/min; Est GFR (Non-African American) 83.9 ml/min; Globulin 3.7 gm/dl (2.5-4.0); Glucose 149 mg/dl (70-99(Fasting)); Magnesium 1.4 mg/dl (1.7-2.4); Potassium 3.6 mmol/L (3.5-5.1); Sodium 136 mmol/L (136-145); Total Protein 7.1 gm/dl (6.0-8.3)
[2022-06-11 19:17] LABS: Troponin I High Sensitivity 30.3 pg/ml (0-20)
[2022-06-11 19:18] LABS: INR 1.1 (0.9-1.1); Partial Thromboplastin Time 28.2 Seconds (21.0-31.0); Prothrombin Time 11.8 Seconds (9.0-12.0)
[2022-06-11] MEDS: MAGNESIUM SULFATE / D5W 1 GM/100 ML BAG IV SCH (19:31)
[2022-06-11] MEDS ORDERED: ALBUT/IPRATROP 3MG/0.5MG NEB 3 ML VIAL NEB STA (19:36)
[2022-06-11] MEDS ORDERED: guaiFENesin 600 MG TABCR PO STA (19:36)
--- NOTE | 2022-06-11 19:37 | XRay Report ---
XR chest 1V portable HISTORY: Shortness of breath. COMPARISON: Chest 05/14/2022. FINDINGS: No pneumothorax. No pleural effusions. The correct silhouette remains enlarged. There is mi ld interstitial pulmonary edema which has slightly improved. IMPRESSION: Cardiomegaly with slight improvement in the mild interstitial pulmonary edema. ACT 112: Negative or not required by law. Electronically signed by: Tani Pedroza M.D. 06/11/2022 7:36 PM
[2022-06-11] MEDS ORDERED: FUROSEMIDE 40 MG/4 ML VIAL IV ONE (19:38)
[2022-06-11 19:47] LABS: D Dimer 740 ug/L FEU (0-500)
--- NOTE | 2022-06-11 19:48 | Emergency Department Note ---
Impression & Plan Dyspnea, Asthma, Hypertension, Hypomagnesemia ED Provider Note NAME: PHILIPP WILLAMS AGE: 52 SEX: M ARRIVES VIA: Walk-In INFORMANT: Patient ED PROVIDER(S): Get Trejo MD CHIEF COMPLAINT: SOB, Referred. PLAN: Disposition: Admit MEDICAL DECISION MAKING: Patient is a pleasant 52-year-old gentleman with a past medical history of CHF, asthma, DVT on Xarelto, hypertension, hyperlipidemia, diabetes, CAD, history of NSTEMI, venous stasis of lower extremities, history of left BKA in the setting of diabetic ulcers presents emergency department referred from his cardiology office for evaluation of progressive dyspnea on exertion and now at rest over the past several weeks. Patient reports he has felt as though he is retaining fluid. Patient ports he has had productive cough of clear sputum for the past week or so. He denies any fevers, nausea, vomiting, diarrhea or urinary symptoms. He reports he did increase his Lasix dose to 80 mg twice daily a week ago and while initially had some increased urination reports this has not continued and still feels like he is retaining fluid. The patient's most recent echocardiogram performed demonstrated EF of 60-65% with mild LVH. He had normal RV size and function. Given the patient's worsening right leg swelling and his worsening symptoms there was concern for possible subtherapeutic anticoagulation/treatment failure on Xarelto and so DVT and PE are considered. His tractor operator helper felt it is best to admit the patient for further evaluation and treatment including IV diuresis. Patient is in agreement with this plan. Case was discussed with [place]. Baxter, [facility] [place], who will evaluate the patient for admission. EKG without overt acute ischemia. CXR with improvement in interstitial pulmonary edema. WBC and platelets within normal limits. H/H similar to prior range of values. Chemistry without metabolic acidosis. Magnesium 1.4 with repletion provided. Electrolytes otherwise without significant abnormality. High-sensitivity troponin 30.3, nonspecific. BNP within normal limits. Procalcitonin is undetectable. COVID-19 RNA, NAAT test was negative. D-dimer mildly elevated at 740. Right lower extremity ultrasound negative for acute DVT per preliminary stat rad report. There is question of possible chronic thrombus in the popliteal vein. Respiratory viral panel/bio fire did result positive for entero/rhinovirus. Treatment initiated with duoneb, guaifenesin, and Lasix. Triage Nursing notes reviewed and agree them. Prior medical records reviewed Vital Signs: reviewed and remarkable for hypertension. Differential diagnosis: Reactive airway disease, pneumonia, pneumothorax, COPD, CHF, infections, cardiac ischemia, pulmonary embolism, musculoskeletal, gastrointestinal, as well as other pathologies. ER treatment provided: See below. Diagnostics interpreted by me: ECG: NSR, 84 bpm, no ectopy, no overt ST elevation or depression. Cardiac Monitoring: An order for continuous cardiac monitoring was placed and demonstrated NSR, 84 bpm, no ectopy. Laboratory studies: See below Imaging studies: See below Consultation(s): Case was discussed with Dr. Baxter, [facility] [place], who will evaluate the patient for admission. HPI: Patient is a pleasant 52-year-old gentleman with a past medical history of CHF, asthma, DVT on Xarelto, hypertension, hyperlipidemia, diabetes, CAD, history of NSTEMI, venous stasis of lower extremities, history of left BKA in the setting of diabetic ulcers presents emergency department referred from his cardiology office for evaluation of progressive dyspnea on exertion and now at rest over the past several weeks. Patient reports he has felt as though he is retaining fluid. Patient ports he has had productive cough of clear sputum for the past week or so. He denies any fevers, nausea, vomiting, diarrhea or urinary symptoms. He reports he did increase his Lasix dose to 80 mg twice daily a week ago and while initially had some increased urination reports this has not continued and still feels like he is retaining fluid. The patient's most recent echocardiogram performed 08/17/2021 demonstrated EF of 60-65% with mild LVH. He had normal RV size and function. Given the patient's worsening right leg swelling and his worsening symptoms there was concern for possible subtherapeutic anticoagulation/treatment failure on Xarelto and so DVT and PE are considered. His tractor operator helper felt it is best to admit the patient for further evaluation and treatment including IV diuresis. Patient is in agreement with this plan. ROS: See above HPI for pertinent positives & negatives. A total of 10 systems reviewed and were otherwise negative. VITALS:See Below PHYSICAL EXAMINATION: GENERAL: Awake, alert, fatigued-appearing, in no distress, BMI 56.2. HENT: Normocephalic, atraumatic. Oropharynx unremarkable. EYES: Normal conjunctiva. Sclera non-icteric. NECK: Supple. No nuchal rigidity. FROM. No JVD. RESPIRATORY: Intermittent wheeze with scant rhonchi bilaterally. CARDIAC: Regular rate, normal rhythm. Extremities warm and well perfused. Pulses equal. ABDOMEN: Soft, non-distended. No tenderness to palpation. No rebound or guarding. No masses. RECTAL: Deferred. MUSCULOSKELETAL: Chest examination reveals no tenderness. The back is symmetri zee on inspection without obvious abnormality. There is no CVA tenderness to palpation. No joint edema. LOWER EXTREMITIES: 2+ RLE pitting edema. L BKA. NEURO: Normal sensorium. No sensory or motor deficits noted. SKIN: No rash or jaundice noted. Get Trejo MD Past Med/Surg History Medical History Below-knee amputation of left lower extremity CHF (congestive heart failure) Depression Diabetes type 2, uncontrolled Diabetic peripheral neuropathy associated with type 2 diabetes mellitus DVT (deep venous thrombosis) (08/16/13) Dysesthesia Dyslipidemia Hip pain History of acute renal failure History of cellulitis History of GI bleed (~07/2021) Hx of renal calculi Hypertension NSTEMI (non-ST elevated myocardial infarction) Personal history of diabetic foot ulcer Venous stasis of both lower extremities Venous ulcer of right leg Vitamin D deficiency Surgical History History of esophagogastroduodenoscopy (EGD) History of repair of right rotator cuff Hx laparoscopic cholecystectomy Hx of amputation below knee Hx of colonoscopy Hx of nephrostomy S/P hernia repair S/P PICC central line placement Family History Aunt No problems noted. Grandmother (Maternal) Throat cancer Myocardial infarction Grandfather (Maternal) Myocardial infarction Other Coronary heart disease Diabetes No pertinent family history Denies family history of Ovarian cancer Prostate cancer Breast cancer Colorectal cancer Social History Smoking Status: Former smoker Tobacco Type: Cigarettes Years Smoked: 30; Cigarettes Per Day: 1 Pack; Second Hand Exposure: No; Do You Dip or Chew Tobacco: No; Tobacco Cessation Education Requested by Patient: No Hx Alcohol Use: No Hx Substance Use: No Preferred Language: Kiswahili Communication Ability: Effective Stitcher Feeder Required: No Beliefs That Will Affect Care: None marital status: Current Living Situation: Spouse Current Living Situation Comment: Home current occupational status: disabled How many Children do You have: 2 Other Information That Helps Us Care for You: No other: caregiver, 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 Feels Safe at Home: Yes Physical Activity Frequency: Does not Exercise Seatbelt Use: always Sunscreen Use: Yes Assistive Devices: Prosthesis Allergies Allergies Allergy/AdvReac Type Severity Reaction Status Date / Time clindamycin Allergy Intermediate Hives Verified 06/11/22 21:29 vancomycin AdvReac Intermediate KYE Verified 06/11/22 21:29 SYNDROME piperacillin [From Zosyn] AdvReac Mild skin rash, Verified 06/11/22 21:29 itching, mild tazobactam [From Zosyn] AdvReac Mild skin rash, Verified 06/11/22 21:29 itching, mild Home Meds Home Medications Medication Instructions Recorded Confirmed hydroxyzine HCl 25 mg tablet 25 mg PO DAILY PRN Anxiety 08/15/21 06/11/22 multivitamin 1 tab PO QAM 08/15/21 06/11/22 pantoprazole 40 mg tablet,delayed 40 mg PO QAM 08/15/21 06/11/22 release gabapentin 600 mg tablet 600 mg PO HS 10/07/21 06/11/22 cetirizine 10 mg tablet 10 mg PO QAM 03/21/22 06/11/22 insulin regular hum U-500 conc 500 100 unit subcut AC 06/11/22 06/11/22 unit/mL(3 mL) subcut pen metoprolol tartrate 50 mg tablet 50 mg PO QAM 06/11/22 06/11/22 Previous Rx's Medication Instructions Recorded pen needle, diabetic 29 gauge x #100 ea 03/14/20 1/2" (Comfort EZ Pen [place]) albuterol sulfate 90 mcg/actuation 2 puff inhalation Q6H PRN 03/12/21 aerosol inhaler (Ventolin HFA) Shortness Of Breath Or Wheezing #18 grams Dexcom G6 Chief Information Security Officer (blood-glucose #1 ea 07/16/21 meter,continuous) Dexcom G6 Sensor (blood-glucose #3 ea 07/16/21 sensor) Dexcom G6 Transmitter #1 ea 07/16/21 (blood-glucose transmitter) rivaroxaban 20 mg tablet 20 mg PO QPM #90 tabs 09/17/21 topiramate 25 mg tablet 25 mg PO HS #60 tabs 09/19/21 blood sugar diagnostic #100 ea 10/04/21 rosuvastatin 20 mg tablet (Crestor) 20 mg PO HS #90 tabs 01/16/22 cholecalciferol (vitamin D3) 125 5,000 unit PO QAM #90 tabs 02/18/22 mcg (5,000 unit) tablet (Vitamin D3) fluoxetine 60 mg tablet 60 mg PO QAM #90 tabs 02/18/22 doxepin 10 mg capsule 10 mg PO HS #30 caps 02/19/22 lisinopril 2.5 mg tablet 2.5 mg PO QAM #90 tabs 04/01/22 furosemide 40 mg tablet 40 mg PO BID #180 tabs 06/10/22 Results & Data (ED) Vital Signs Vital Signs - 24 hr 06/11/22 18:10 06/11/22 18:42 06/11/22 19:50 Temperature 37.1 C Temperature Source Oral Pulse Rate 86 Respiratory Rate 24 Respiratory Effort / Characteristics Non-Labored Spontaneous Respiratory Depth Normal Blood Pressure 173/73 H Blood Pressure [Right Arm] 140/68 Blood Pressure Mean 106 Blood Pressure Mean [Right Arm] 92 Pulse Oximetry 96 93 Oxygen Delivery Method Room Air Room Air Oxygen Flow Rate 0 Sepsis Recent Fever Within 48 Hours No Sepsis New/Unexplained Change in Mental Status N/A Sepsis Action Taken by Nursing No Action Required 06/11/22 19:51 Temperature Temperature Source Pulse Rate 72 Respiratory Rate Respiratory Effort / Characteristics Respiratory Depth Blood Pressure Blood Pressure [Right Arm] Blood Pressure Mean Blood Pressure Mean [Right Arm] Pulse Oximetry 96 Oxygen Delivery Method Room Air Oxygen Flow Rate Sepsis Recent Fever Within 48 Hours Sepsis New/Unexplained Change in Mental Status Sepsis Action Taken by Nursing Laboratory Data Attestation: I reviewed the patient's lab results. Result diagrams: 06/11/22 18:35 06/11/22 18:35 Lab Results 06/11/22 06/11/22 06/11/22 Range/Units 18:35 18:35 18:35 WBC 9.65 (4.8-10.8) K/ul RBC 4.15 L (4.63-6.08) M/uL Hgb 12.2 L (14.0-18.0) g/dl Hct 36.6 L (40.1-51.0) % MCV 88.2 (80.0-100.0) fL MCH 29.4 (25.0-34.0) pg MCHC 33.3 (32.0-36.0) g/dL RDW Std Deviation 44.4 (36.4-46.3) fL RDW Coeff of Wil 13.8 (11.5-14.5) % Plt Count 244 (130-400) K/uL MPV 9.6 (9.4-12.4) fL Immature Gran % (Auto) 0.3 % Neut % (Auto) 57.6 % Lymph % (Auto) 26.7 % [place] % (Auto) 9.5 % Eos % (Auto) 5.5 % Baso % (Auto) 0.4 % Neut # (Auto) 5.55 (1.4-6.5) K/uL Lymph # (Auto) 2.58 (1.2-3.4) K/uL [place] # (Auto) 0.92 H (0.24-0.82) K/uL Eos # (Auto) 0.53 H (0-0.50) K/uL Baso # (Auto) 0.04 (0-0.2) K/uL Immature Gran # (Auto) 0.03 H (0.00-0.02) K/uL PT 11.8 (9.0-12.0) Seconds INR 1.1 (0.9-1.1) APTT 28.2 (21.0-31.0) Seconds PTT Ratio 1.0 D-Dimer 740 H* (0-500) ug/L FEU Sodium 136 (136-145) mmol/L Potassium 3.6 (3.5-5.1) mmol/L Chloride 100 (98-107) mmol/L Carbon Dioxide 28 (21-32) mmol/L Anion Gap 8 (3-11) BUN 10 (6-23) mg/dl Creatinine 1.01 (0.6-1.4) mg/dl Est Cr Clr Drug Dosing Not Reportable Est GFR ( Amer) 97.3 ml/min Est GFR (Non-Af Amer) 83.9 ml/min BUN/Creatinine Ratio 9.9 L (10-20) Glucose 149 H (70-99(Fasting)) mg/dl Calcium 9.0 (8.5-10.1) mg/dl Magnesium 1.4 L (1.7-2.4) mg/dl Total Bilirubin 0.6 (0.2-1.0) mg/dl AST 17 (13-39) U/L ALT 13 (7-52) U/L Alkaline Phosphatase 65 (34-104) U/L Troponin I High Sens 30.3 H D (0-20) pg/ml B-Natriuretic Peptide (0-100) pg/ml Total Protein 7.1 (6.0-8.3) gm/dl Albumin 3.4 (3.4-5.0) gm/dl Globulin 3.7 (2.5-4.0) gm/dl Albumin/Globulin Ratio 0.9 (0.9-2) Procalcitonin (0-0.5) ng/ml Adenovirus (PCR) (NotDetected) B. pertussis DNA (PCR) (NotDetected) B.parapertussis DNA PCR (NotDetected) C. pneumoniae DNA (PCR) (NotDetected) Coronavirus OC43 (PCR) (NotDetected) Coronavirus HKU1 (PCR) (NotDetected) Coronavirus 229E (PCR) (NotDetected) SARS-CoV-2 (PCR) (NotDetected) Coronavirus NL63 (PCR) (NotDetected) Human Metapneumovir PCR (NotDetected) Influenza Type A (PCR) (NotDetected) Influenza Type B (PCR) (NotDetected) M. pneumoniae (PCR) (NotDetected) Parainfluenza 1 (PCR) (NotDetected) Parainfluenza 2 (PCR) (NotDetected) Parainfluenza 3 (PCR) (NotDetected) Parainfluenza 4 (PCR) (NotDetected) RSV (PCR) (NotDetected) Entero/Rhino (PCR) (NotDetected) SARS-CoV-2, RNA, NAAT (NEGATIVE) 08/24/22 08/24/22 08/24/22 Range/Units 18:35 18:35 18:35 WBC (4.8-10.8) K/ul RBC (4.63-6.08) M/uL Hgb (14.0-18.0) g/dl Hct (40.1-51.0) % MCV (80.0-100.0) fL MCH (25.0-34.0) pg MCHC (32.0-36.0) g/dL RDW Std Deviation (36.4-46.3) fL RDW Coeff of Wil (11.5-14.5) % Plt Count (130-400) K/uL MPV (9.4-12.4) fL Immature Gran % (Auto) % Neut % (Auto) % Lymph % (Auto) % [place] % (Auto) % Eos % (Auto) % Baso % (Auto) % Neut # (Auto) (1.4-6.5) K/uL Lymph # (Auto) (1.2-3.4) K/uL [place] # (Auto) (0.24-0.82) K/uL Eos # (Auto) (0-0.50) K/uL Baso # (Auto) (0-0.2) K/uL Immature Gran # (Auto) (0.00-0.02) K/uL PT (9.0-12.0) Seconds INR (0.9-1.1) APTT (21.0-31.0) Seconds PTT Ratio D-Dimer (0-500) ug/L FEU Sodium (136-145) mmol/L Potassium (3.5-5.1) mmol/L Chloride (98-107) mmol/L Carbon Dioxide (21-32) mmol/L Anion Gap (3-11) BUN (6-23) mg/dl Creatinine (0.6-1.4) mg/dl Est Cr Clr Drug Dosing Est GFR ( Amer) ml/min Est GFR (Non-Af Amer) ml/min BUN/Creatinine Ratio (10-20) Glucose (70-99(Fasting)) mg/dl Calcium (8.5-10.1) mg/dl Magnesium (1.7-2.4) mg/dl Total Bilirubin (0.2-1.0) mg/dl AST (13-39) U/L ALT (7-52) U/L Alkaline Phosphatase (34-104) U/L Troponin I High Sens Cancelled (0-20) pg/ml B-Natriuretic Peptide 28 (0-100) pg/ml Total Protein (6.0-8.3) gm/dl Albumin (3.4-5.0) gm/dl Globulin (2.5-4.0) gm/dl Albumin/Globulin Ratio (0.9-2) Procalcitonin < 0.05 (0-0.5) ng/ml Adenovirus (PCR) (NotDetected) B. pertussis DNA (PCR) (NotDetected) B.parapertussis DNA PCR (NotDetected) C. pneumoniae DNA (PCR) (NotDetected) Coronavirus OC43 (PCR) (NotDetected) Coronavirus HKU1 (PCR) (NotDetected) Coronavirus 229E (PCR) (NotDetected) SARS-CoV-2 (PCR) (NotDetected) Coronavirus NL63 (PCR) (NotDetected) Human Metapneumovir PCR (NotDetected) Influenza Type A (PCR) (NotDetected) Influenza Type B (PCR) (NotDetected) M. pneumoniae (PCR) (NotDetected) Parainfluenza 1 (PCR) (NotDetected) Parainfluenza 2 (PCR) (NotDetected) Parainfluenza 3 (PCR) (NotDetected) Parainfluenza 4 (PCR) (NotDetected) RSV (PCR) (NotDetected) Entero/Rhino (PCR) (NotDetected) SARS-CoV-2, RNA, NAAT (NEGATIVE) 06/11/22 06/11/22 Range/Units 18:38 19:51 WBC (4.8-10.8) K/ul RBC (4.63-6.08) M/uL Hgb (14.0-18.0) g/dl Hct (40.1-51.0) % MCV (80.0-100.0) fL MCH (25.0-34.0) pg MCHC (32.0-36.0) g/dL RDW Std Deviation (36.4-46.3) fL RDW Coeff of Wil (11.5-14.5) % Plt Count (130-400) K/uL MPV (9.4-12.4) fL Immature Gran % (Auto) % Neut % (Auto) % Lymph % (Auto) % [place] % (Auto) % Eos % (Auto) % Baso % (Auto) % Neut # (Auto) (1.4-6.5) K/uL Lymph # (Auto) (1.2-3.4) K/uL [place] # (Auto) (0.24-0.82) K/uL Eos # (Auto) (0-0.50) K/uL Baso # (Auto) (0-0.2) K/uL Immature Gran # (Auto) (0.00-0.02) K/uL PT (9.0-12.0) Seconds INR (0.9-1.1) APTT (21.0-31.0) Seconds PTT Ratio D-Dimer (0-500) ug/L FEU Sodium (136-145) mmol/L Potassium (3.5-5.1) mmol/L Chloride (98-107) mmol/L Carbon Dioxide (21-32) mmol/L Anion Gap (3-11) BUN (6-23) mg/dl Creatinine (0.6-1.4) mg/dl Est Cr Clr Drug Dosing Est GFR ( Amer) ml/min Est GFR (Non-Af Amer) ml/min BUN/Creatinine Ratio (10-20) Glucose (70-99(Fasting)) mg/dl Calcium (8.5-10.1) mg/dl Magnesium (1.7-2.4) mg/dl Total Bilirubin (0.2-1.0) mg/dl AST (13-39) U/L ALT (7-52) U/L Alkaline Phosphatase (34-104) U/L Troponin I High Sens (0-20) pg/ml B-Natriuretic Peptide (0-100) pg/ml Total Protein (6.0-8.3) gm/dl Albumin (3.4-5.0) gm/dl Globulin (2.5-4.0) gm/dl Albumin/Globulin Ratio (0.9-2) Procalcitonin (0-0.5) ng/ml Adenovirus (PCR) Not Detected (NotDetected) B. pertussis DNA (PCR) Not Detected (NotDetected) B.parapertussis DNA PCR Not Detected (NotDetected) C. pneumoniae DNA (PCR) Not Detected (NotDetected) Coronavirus OC43 (PCR) Not Detected (NotDetected) Coronavirus HKU1 (PCR) Not Detected (NotDetected) Coronavirus 229E (PCR) Not Detected (NotDetected) SARS-CoV-2 (PCR) Not Detected (NotDetected) Coronavirus NL63 (PCR) Not Detected (NotDetected) Human Metapneumovir PCR Not Detected (NotDetected) Influenza Type A (PCR) Not Detected (NotDetected) Influenza Type B (PCR) Not Detected (NotDetected) M. pneumoniae (PCR) Not Detected (NotDetected) Parainfluenza 1 (PCR) Not Detected (NotDetected) Parainfluenza 2 (PCR) Not Detected (NotDetected) Parainfluenza 3 (PCR) Not Detected (NotDetected) Parainfluenza 4 (PCR) Not Detected (NotDetected) RSV (PCR) Not Detected (NotDetected) Entero/Rhino (PCR) DETECTED A* (NotDetected) SARS-CoV-2, RNA, NAAT NEGATIVE (NEGATIVE) Administered Medications Albuterol (Albut/Ipratrop 3mg/0.5mg Neb 3 Ml Vial) 3 ml NEB Q4R [facility]; Protocol Stop: 07/11/22 23:32 Last Admin: 06/12/22 02:57 Dose: 3 ml Documented By: Admin: 06/12/22 00:03 Dose: 3 ml Documented By: BWT Doxepin HCl (Doxepin Hcl 10 Mg Capsule) 10 mg PO HS [facility] Stop: 07/11/22 23:32 Last Admin: 06/12/22 00:33 Dose: 10 mg Documented By: TMD Gabapentin (Gabapentin 600 Mg Tab) 600 mg PO HS [facility] Stop: 07/11/22 23:32 Last Admin: 06/12/22 00:32 Dose: 600 mg Documented By: TMD Metoprolol Tartrate (Metoprolol Tartrate 25 Mg Tab) 25 mg PO BID [facility] Stop: 07/11/22 23:32 Last Admin: 06/12/22 00:34 Dose: 25 mg Documented By: JOZEF Rivaroxaban (Rivaroxaban 20 Mg Tab) 20 mg PO QPM [place] Stop: 07/11/22 23:32 Last Admin: 06/12/22 00:32 Dose: 20 mg Documented By: JOZEF Topiramate (Topiramate 25 Mg Tab) 25 mg PO HS [facility] Stop: 07/11/22 23:32 Last Admin: 06/12/22 00:33 Dose: 25 mg Documented By: JOZEF Discontinued Medications Albuterol (Albut/Ipratrop 3mg/0.5mg Neb 3 Ml Vial) 3 ml NEB NOW STA; Protocol Stop: 06/11/22 19:37 Last Admin: 06/11/22 19:56 Dose: 3 ml Documented By: NISREEN Furosemide (Furosemide 40 Mg/4 Ml Vial) 80 mg IV ONE ONE Stop: 06/11/22 19:39 Last Admin: 06/11/22 19:56 Dose: 80 mg Documented By: NISREEN Furosemide (Furosemide 40 Mg/4 Ml Vial) 40 mg IV ONE STA Stop: 06/11/22 21:01 Last Admin: 06/11/22 21:45 Dose: 40 mg Documented By: NISREEN Guaifenesin (Guaifenesin 600 Mg Tabcr) 600 mg PO NOW STA Stop: 06/11/22 19:37 Last Admin: 06/11/22 19:56 Dose: 600 mg Documented By: NISREEN Magnesium Sulfate/Dextrose (Magnesium Sulfate / D5w) 1 gm in 100 mls @ 100 mls/hr IV Q1H [facility] Stop: 06/11/22 21:16 Last Infusion: 06/11/22 23:36 Dose: 0 mls/hr Documented By: Admin: 06/11/22 19:31 Dose: 100 mls/hr Documented By: Infusion: 06/11/22 19:31 Dose: 100 mls/hr Documented By: Admin: 06/11/22 19:31 Dose: 100 mls/hr Documented By: NISREEN Insulin Aspart (Insulin Aspart Per Unit) 0 units SC 0000,[id number] [place] Stop: 06/12/22 04:01 Last Admin: 06/12/22 04:28 Dose: 6 units Documented By: JOZEF Co-signed By: MARIBETH Admin: 06/12/22 00:39 Dose: 11 units Documented By: JOZEF Co-signed By: ED Insulin Glargine (Lantus Per Unit Charge) 35 units SQ ONCE STA Stop: 06/11/22 21:05 Last Admin: 06/11/22 22:49 Dose: 35 units Documented By: KV Co-signed By: ASW Imaging Data Radiologist's Impression: Chest X-Ray 06/11/22 18:15 XR chest 1V portable HISTORY: Shortness of breath. COMPARISON: Chest 05/14/2022. FINDINGS: No pneumothorax. No pleural effusions. The correct silhouette remains enlarged. There is mild interstitial pulmonary edema which has slightly improved. IMPRESSION: Cardiomegaly with slight improvement in the mild interstitial pulmonary edema. ACT 112: Negative or not required by law. Electronically signed by: Tani Pedroza M.D. 06/11/2022 7:36 PM [facility] Preliminary Findings Only See Final Report For Complete Findings US VENOUS RIGHT LOWER EXTREMITY: No evidence of acute DVT. There is a possible chronic thrombus in the popliteal vein. The study is limited secondary to patient's body habitus and subcutaneous edema. Radiologist: Luz Marina Carr MD Study ready at 22:50 and initial results transmitted at 00:56 Discharge Plan Visit Data Chief Complaint: Shortness of Breath/Dyspnea Stated Complaint: SOB, FATIGUE, REF BY DOC ED Provider: Get Trejo Discharge Problem: Dyspnea, Asthma, Hypertension, Hypomagnesemia Patient Disposition: Admitted As Inpatient Discharge Instructions Interventions: ED Discharge Assessment Last Done: 06/11/22 22:26
--- NOTE | 2022-06-11 20:55 | History & Physical Report ---
Date of Service June 11, 2022 Assessment & Plan (1) Dyspnea: Plan: 52yo male with history of asthma presents with progressive dyspnea as well as productive cough, orthopnea, weight gain and edema. Patient reports feeling that he is "full of fluid". Prior cardiac testing revealed normal myocardial perfusion on pharmacologic stress test. Normal Biventricular systolic function with no significant valvular abnormality on echocardiogram 08/17/21. Seen by Cardiology today with these complaints. Found to be hypoxemic with resting saturation of 90% on room air and was subsequently referred to the ER for additional testing and treatment. Patient is HD stable in the ER. Adequate saturation on room air. He does become dyspneic with minimal exertion. Clinically presents as CHF but does lack rales on exam, normal BNP may be falsely low in setting of obesity. Normal biventricular function and no valvular heart disease on prior echo. Patient's body habitus does favor diagnosis of obesity hypoventilation, possible EVITA. Possible PH? Right HF Patient is on Rivaroxaban for history of RLE DVT. Difficult to dose with morbid obesity. His pulmonary viral panel did come back POSITIVE for Rhinovirus which could be contributing greatly to symptoms as well. Do not suspect bacterial PNA given normal Procal -Admit to medical with telemetry -VTE RLE obtained - read is pending. If DVT is present will obtain CTA chest for possible PE -Continue diuresis with Lasix 80mg IV BID, strict I/O monitoring and daily weights -Repeat Echocardiogram -BMP BID to assess renal function and electrolytes with diuresis (2) Asthma: Plan: No wheezing noted on exam. Patient does report wheezing prior to arrival which improved after nebulized Albuterol. Enterovirus infection possibly contributing as well -Continue DuoNebs and Albuterol PRN -Continue Cetirizine (3) History of deep venous thrombosis: Plan: Patient with history of VTE on Rivaroxaban -US RLE pending -Continue Rivaroxaban. Consider treatment with Coumadin rather than Rivaroxaban given patient's high BMI (4) Depression: Plan: Chronic. Stable -Continue Fluoxetine 60mg po qAM -Hydroxyzine PRN (5) Hypertension: Plan: Blood pressure controlled -Continue Metoprolol -Continue to monitor (6) Diabetes type 2, uncontrolled: Plan: Patient with DM. Last [id number] on 08/29/21. He is on 100u of U-500 insulin daily -Pharmacy glycemic management consultation appreciated to assist with insulin management -Check A1C with AM labs -Continue Lisinopril 2.5mg po daily F/E/N - Diuresis with Lasix 80mg IV BID, monitor BID BMP, CC/AHA diet with fluid restriction Ppx - Continue Rivaroxaban and SCD Code - Full per discussion with patient Dispo -Admit to medical with telemetry History of Present Illness Chief Complaint: Shortness of Breath Primary Care Provider: Mike Isidro MD Wyatt Bejarano is a 52yo male with history of prior DVT, Depression, DM, HLP, HTN, Asthma, venous stasis presenting with progressive SOB. Patient reports 1-2 weeks of progressive dyspnea with minimal exertion, he now becomes short of breath with simply repositioning himself in the hospital bed. He has had cough productive for thick, white sputum as well as wheezing. He has significant orthopnea, worsening LE edema as well as weight gain. He reports his "dry weight" is appx 390# - last weighed this in March 2022 (does not actually correlate with weight we have on record from 04/17/22 which is 448#). Reports he has been having progressive weight gain since that time. He reports some chest tightness and discomfort of the left arm at times. Denies fever, chills, palpitations, nausea, vomiting, dizziness, syncope. He did have some diarrhea several days ago for which he took Immodium - has not had a BM in the last day. He does report consuming a very high salt diet. He likes canned soups and Survey Research Manager Zahra Cabral. In the ER patient afebrile, HD stable. He was quite dyspneic but oxygen saturations maintained without supplemental O2 ER Course: Magnesium 2gm, Albuterol 3mL neb, Guaifenesin 600mg, Lasix 80mg IV + 40mg IV Allergies Allergy/AdvReac Type Severity Reaction Status Date / Time clindamycin Allergy Intermediate Hives Verified 06/11/22 21:29 vancomycin AdvReac Intermediate KYE Verified 06/11/22 21:29 SYNDROME piperacillin [From Zosyn] AdvReac Mild skin rash, Verified 06/11/22 21:29 itching, mild tazobactam [From Zosyn] AdvReac Mild skin rash, Verified 06/11/22 21:29 itching, mild Home Medications Medication Instructions Recorded Confirmed Type pen needle, diabetic 29 gauge x #100 ea 03/14/20 05/14/22 Rx 1/2" (Comfort EZ Pen Sarver) albuterol sulfate 90 mcg/actuation 2 puff inhalation Q6H PRN 03/12/21 06/11/22 Rx aerosol inhaler (Ventolin HFA) Shortness Of Breath Or Wheezing #18 grams Dexcom G6 Head Of Marketing Adometry (blood-glucose #1 ea 07/16/21 05/14/22 Rx meter,continuous) Dexcom G6 Sensor (blood-glucose #3 ea 07/16/21 05/14/22 Rx sensor) Dexcom G6 Transmitter #1 ea 07/16/21 05/14/22 Rx (blood-glucose transmitter) hydroxyzine HCl 25 mg tablet 25 mg PO DAILY PRN Anxiety 08/15/21 06/11/22 History multivitamin 1 tab PO QAM 08/15/21 06/11/22 History pantoprazole 40 mg tablet,delayed 40 mg PO QAM 08/15/21 06/11/22 History release rivaroxaban 20 mg tablet 20 mg PO QPM #90 tabs 09/17/21 06/11/22 Rx topiramate 25 mg tablet 25 mg PO HS #60 tabs 09/19/21 06/11/22 Rx blood sugar diagnostic #100 ea 10/04/21 05/14/22 Rx gabapentin 600 mg tablet 600 mg PO HS 10/07/21 06/11/22 History rosuvastatin 20 mg tablet (Crestor) 20 mg PO HS #90 tabs 01/16/22 06/11/22 Rx cholecalciferol (vitamin D3) 125 5,000 unit PO QAM #90 tabs 02/18/22 06/11/22 Rx mcg (5,000 unit) tablet (Vitamin D3) fluoxetine 60 mg tablet 60 mg PO QAM #90 tabs 02/18/22 06/11/22 Rx doxepin 10 mg capsule 10 mg PO HS #30 caps 02/19/22 06/11/22 Rx cetirizine 10 mg tablet 10 mg PO QAM 03/21/22 06/11/22 History lisinopril 2.5 mg tablet 2.5 mg PO QAM #90 tabs 04/01/22 06/11/22 Rx furosemide 40 mg tablet 40 mg PO BID #180 tabs 06/10/22 06/11/22 Rx insulin regular hum U-500 conc 500 100 unit subcut AC 06/11/22 06/11/22 History unit/mL(3 mL) subcut pen metoprolol tartrate 50 mg tablet 50 mg PO QAM 06/11/22 06/11/22 History Past Med/Surg History Medical History Below-knee amputation of left lower extremity CHF (congestive heart failure) Depression Diabetes type 2, uncontrolled Diabetic peripheral neuropathy associated with type 2 diabetes mellitus DVT (deep venous thrombosis) (08/16/13) Dysesthesia Dyslipidemia Hip pain History of acute renal failure History of cellulitis History of GI bleed (~07/2021) Hx of renal calculi Hypertension NSTEMI (non-ST elevated myocardial infarction) Personal history of diabetic foot ulcer Venous stasis of both lower extremities Venous ulcer of right leg Vitamin D deficiency Surgical History History of esophagogastroduodenoscopy (EGD) History of repair of right rotator cuff Hx laparoscopic cholecystectomy Hx of amputation below knee Hx of colonoscopy Hx of nephrostomy S/P hernia repair S/P PICC central line placement Family History Aunt No problems noted. Grandmother (Maternal) Throat cancer Myocardial infarction Grandfather (Maternal) Myocardial infarction Other Coronary heart disease Diabetes No pertinent family history Denies family history of Ovarian cancer Prostate cancer Breast cancer Colorectal cancer Social History Smoking Status: Never smoker Tobacco Type: Cigarettes Years Smoked: 30; Cigarettes Per Day: pack per day; Second Hand Exposure: No; Hx Alcohol Use: Yes Hx Substance Use: No Preferred Language: Mohawk Communication Ability: Effective Booking Officer Required: No Beliefs That Will Affect Care: None marital status: Current Living Situation: Spouse Current Living Situation Comment: Home current occupational status: disabled How many Children do You have: 2 other: caregiver, 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 Feels Safe at Home: Yes Physical Activity Frequency: Does not Exercise Seatbelt Use: always Sunscreen Use: Yes Assistive Devices: Cane Review of Systems Review of Systems: All systems reviewed & are unremarkable except as noted in HPI & below Physical Exam Physical Exam: General: morbidly obese male patient resting comfortably, NAD, non-toxic in appearance, AA&O x 4 Skin: warm, dry, intact, venous stasis changes of RLE HEENT: NC/AT, PERRL, EOMI, anicteric sclera, conjunctiva without injection, external ear normal to inspection and nontender, nares patent, moist mucus membranes, dentition intact, no oropharyngeal lesions, neck supple, trachea midline, no LAD, no thyromegaly, no JVD Heart: +S1/S2, regular, no m/r/g, distant heart sounds Lungs: equal air entry bilaterally, no rales/rhonchi/wheezes Abd: +BS, soft, NT/ND, no masses/organomegaly/ascites Ext: s/p left BKA with prosthetic in place, LLE edema 2+ pitting with venous stasis change Neuro: nonfocal, patient AA&O x 4, speech intact, no facial droop, moving all extremities on command with equal strength 5/5 Results & Data Results & Data ([facility]) Vital Signs (Past 12 Hours) Vital Signs Temp Pulse Resp BP BP Pulse Ox O2 Del Method 06/11/22 19:51 72 96 Room Air 06/11/22 19:50 93 Room Air 06/11/22 18:42 140/68 06/11/22 18:10 37.1 C 86 24 173/73 H 96 Room Air O2 Flow Rate 06/11/22 19:51 06/11/22 19:50 0 06/11/22 18:42 06/11/22 18:10 Laboratory Results Laboratory Results WBC 9.65 K/ul (4.8-10.8) 06/11/22 18:35 RBC 4.15 M/uL (4.63-6.08) L 06/11/22 18:35 Hgb 12.2 g/dl (14.0-18.0) L 06/11/22 18:35 Hct 36.6 % (40.1-51.0) L 06/11/22 18:35 MCV 88.2 fL (80.0-100.0) 06/11/22 18:35 MCH 29.4 pg (25.0-34.0) 06/11/22 18:35 MCHC 33.3 g/dL (32.0-36.0) 06/11/22 18:35 RDW Std Deviation 44.4 fL (36.4-46.3) 06/11/22 18:35 RDW Coeff of Wil 13.8 % (11.5-14.5) 06/11/22 18:35 Plt Count 244 K/uL (130-400) 06/11/22 18:35 MPV 9.6 fL (9.4-12.4) 06/11/22 18:35 Immature Gran % (Auto) 0.3 % 06/11/22 18:35 Neut % (Auto) 57.6 % 06/11/22 18:35 Lymph % (Auto) 26.7 % 06/11/22 18:35 Scurry % (Auto) 9.5 % 06/11/22 18:35 Eos % (Auto) 5.5 % 06/11/22 18:35 Baso % (Auto) 0.4 % 06/11/22 18:35 Neut # (Auto) 5.55 K/uL (1.4-6.5) 06/11/22 18:35 Lymph # (Auto) 2.58 K/uL (1.2-3.4) 06/11/22 18:35 Scurry # (Auto) 0.92 K/uL (0.24-0.82) H 06/11/22 18:35 Eos # (Auto) 0.53 K/uL (0-0.50) H 06/11/22 18:35 Baso # (Auto) 0.04 K/uL (0-0.2) 06/11/22 18:35 Immature Gran # (Auto) 0.03 K/uL (0.00-0.02) H 06/11/22 18:35 PT 11.8 Seconds (9.0-12.0) 06/11/22 18:35 INR 1.1 (0.9-1.1) 06/11/22 18:35 APTT 28.2 Seconds (21.0-31.0) 06/11/22 18:35 PTT Ratio 1.0 06/11/22 18:35 D-Dimer 740 ug/L FEU (0-500) H* 06/11/22 18:35 Sodium 136 mmol/L (136-145) 06/11/22 18:35 Potassium 3.6 mmol/L (3.5-5.1) 06/11/22 18:35 Chloride 100 mmol/L (98-107) 06/11/22 18:35 Carbon Dioxide 28 mmol/L (21-32) 06/11/22 18:35 Anion Gap 8 (3-11) 06/11/22 18:35 BUN 10 mg/dl (6-23) 06/11/22 18:35 Creatinine 1.01 mg/dl (0.6-1.4) 06/11/22 18:35 Est Cr Clr Drug Dosing Not Reportable 06/11/22 18:35 Est GFR ( Amer) 97.3 ml/min 06/11/22 18:35 Est GFR (Non-Af Amer) 83.9 ml/min 06/11/22 18:35 BUN/Creatinine Ratio 9.9 (10-20) L 06/11/22 18:35 Glucose 149 mg/dl (70-99(Fasting)) H 06/11/22 18:35 Calcium 9.0 mg/dl (8.5-10.1) 06/11/22 18:35 Magnesium 1.4 mg/dl (1.7-2.4) L 06/11/22 18:35 Total Bilirubin 0.6 mg/dl (0.2-1.0) 06/11/22 18:35 AST 17 U/L (13-39) 06/11/22 18:35 ALT 13 U/L (7-52) 06/11/22 18:35 Alkaline Phosphatase 65 U/L (34-104) 06/11/22 18:35 Troponin I High Sens 30.3 pg/ml (0-20) H D 06/11/22 18:35 Troponin I High Sens Cancelled 06/11/22 18:35 B-Natriuretic Peptide 28 pg/ml (0-100) 06/11/22 18:35 Total Protein 7.1 gm/dl (6.0-8.3) 06/11/22 18:35 Albumin 3.4 gm/dl (3.4-5.0) 06/11/22 18:35 Globulin 3.7 gm/dl (2.5-4.0) 06/11/22 18:35 Albumin/Globulin Ratio 0.9 (0.9-2) 06/11/22 18:35 Procalcitonin < 0.05 ng/ml (0-0.5) 06/11/22 18:35 Adenovirus (PCR) Not Detected (NotDetected) 06/11/22 19:51 B. pertussis DNA (PCR) Not Detected (NotDetected) 06/11/22 19:51 B.parapertussis DNA PCR Not Detected (NotDetected) 06/11/22 19:51 C. pneumoniae DNA (PCR) Not Detected (NotDetected) 06/11/22 19:51 Coronavirus OC43 (PCR) Not Detected (NotDetected) 06/11/22 19:51 Coronavirus HKU1 (PCR) Not Detected (NotDetected) 06/11/22 19:51 Coronavirus 229E (PCR) Not Detected (NotDetected) 06/11/22 19:51 SARS-CoV-2 (PCR) Not Detected (NotDetected) 06/11/22 19:51 Coronavirus NL63 (PCR) Not Detected (NotDetected) 06/11/22 19:51 Human Metapneumovir PCR Not Detected (NotDetected) 06/11/22 19:51 Influenza Type A (PCR) Not Detected (NotDetected) 06/11/22 19:51 Influenza Type B (PCR) Not Detected (NotDetected) 06/11/22 19:51 M. pneumoniae (PCR) Not Detected (NotDetected) 06/11/22 19:51 Parainfluenza 1 (PCR) Not Detected (NotDetected) 06/11/22 19:51 Parainfluenza 2 (PCR) Not Detected (NotDetected) 06/11/22 19:51 Parainfluenza 3 (PCR) Not Detected (NotDetected) 06/11/22 19:51 Parainfluenza 4 (PCR) Not Detected (NotDetected) 06/11/22 19:51 RSV (PCR) Not Detected (NotDetected) 06/11/22 19:51 Entero/Rhino (PCR) DETECTED (NotDetected) A* 06/11/22 19:51 SARS-CoV-2, RNA, NAAT NEGATIVE (NEGATIVE) 06/11/22 18:38 Impressions Chest X-Ray 06/11/22 18:15 XR chest 1V portable HISTORY: Shortness of breath. COMPARISON: Chest 05/14/2022. FINDINGS: No pneumothorax. No pleural effusions. The correct silhouette remains enlarged. There is mild interstitial pulmonary edema which has slightly improved . IMPRESSION: Cardiomegaly with slight improvement in the mild interstitial pulmonary edema. ACT 112: Negative or not required by law. Electronically signed by: Tani Pedroza M.D. 06/11/2022 7:36 PM Diagnostic Findings Laboratory Results WBC 9.65 K/ul (4.8-10.8) 06/11/22 18:35 RBC 4.15 M/uL (4.63-6.08) L 06/11/22 18:35 Hgb 12.2 g/dl (14.0-18.0) L 06/11/22 18:35 Hct 36.6 % (40.1-51.0) L 06/11/22 18:35 MCV 88.2 fL (80.0-100.0) 06/11/22 18:35 MCH 29.4 pg (25.0-34.0) 06/11/22 18:35 MCHC 33.3 g/dL (32.0-36.0) 06/11/22 18:35 RDW Std Deviation 44.4 fL (36.4-46.3) 06/11/22 18:35 RDW Coeff of Wil 13.8 % (11.5-14.5) 06/11/22 18:35 Plt Count 244 K/uL (130-400) 06/11/22 18:35 MPV 9.6 fL (9.4-12.4) 06/11/22 18:35 Immature Gran % (Auto) 0.3 % 06/11/22 18:35 Neut % (Auto) 57.6 % 06/11/22 18:35 Lymph % (Auto) 26.7 % 06/11/22 18:35 Scurry % (Auto) 9.5 % 06/11/22 18:35 Eos % (Auto) 5.5 % 06/11/22 18:35 Baso % (Auto) 0.4 % 06/11/22 18:35 Neut # (Auto) 5.55 K/uL (1.4-6.5) 06/11/22 18:35 Lymph # (Auto) 2.58 K/uL (1.2-3.4) 06/11/22 18:35 Scurry # (Auto) 0.92 K/uL (0.24-0.82) H 06/11/22 18:35 Eos # (Auto) 0.53 K/uL (0-0.50) H 06/11/22 18:35 Baso # (Auto) 0.04 K/uL (0-0.2) 06/11/22 18:35 Immature Gran # (Auto) 0.03 K/uL (0.00-0.02) H 06/11/22 18:35 PT 11.8 Seconds (9.0-12.0) 06/11/22 18:35 INR 1.1 (0.9-1.1) 06/11/22 18:35 APTT 28.2 Seconds (21.0-31.0) 06/11/22 18:35 PTT Ratio 1.0 06/11/22 18:35 D-Dimer 740 ug/L FEU (0-500) H* 06/11/22 18:35 Sodium 136 mmol/L (136-145) 06/11/22 18:35 Potassium 3.6 mmol/L (3.5-5.1) 06/11/22 18:35 Chloride 100 mmol/L (98-107) 06/11/22 18:35 Carbon Dioxide 28 mmol/L (21-32) 06/11/22 18:35 Anion Gap 8 (3-11) 06/11/22 18:35 BUN 10 mg/dl (6-23) 06/11/22 18:35 Creatinine 1.01 mg/dl (0.6-1.4) 06/11/22 18:35 Est Cr Clr Drug Dosing Not Reportable 06/11/22 18:35 Est GFR ( Amer) 97.3 ml/min 06/11/22 18:35 Est GFR (Non-Af Amer) 83.9 ml/min 06/11/22 18:35 BUN/Creatinine Ratio 9.9 (10-20) L 06/11/22 18:35 Glucose 149 mg/dl (70-99(Fasting)) H 06/11/22 18:35 Calcium 9.0 mg/dl (8.5-10.1) 06/11/22 18:35 Magnesium 1.4 mg/dl (1.7-2.4) L 06/11/22 18:35 Total Bilirubin 0.6 mg/dl (0.2-1.0) 06/11/22 18:35 AST 17 U/L (13-39) 06/11/22 18:35 ALT 13 U/L (7-52) 06/11/22 18:35 Alkaline Phosphatase 65 U/L (34-104) 06/11/22 18:35 Troponin I High Sens 30.3 pg/ml (0-20) H D 06/11/22 18:35 Troponin I High Sens Cancelled 06/11/22 18:35 B-Natriuretic Peptide 28 pg/ml (0-100) 06/11/22 18:35 Total Protein 7.1 gm/dl (6.0-8.3) 06/11/22 18:35 Albumin 3.4 gm/dl (3.4-5.0) 06/11/22 18:35 Globulin 3.7 gm/dl (2.5-4.0) 06/11/22 18:35 Albumin/Globulin Ratio 0.9 (0.9-2) 06/11/22 18:35 Procalcitonin < 0.05 ng/ml (0-0.5) 06/11/22 18:35 Adenovirus (PCR) Not Detected (NotDetected) 06/11/22 19:51 B. pertussis DNA (PCR) Not Detected (NotDetected) 06/11/22 19:51 B.parapertussis DNA PCR Not Detected (NotDetected) 06/11/22 19:51 C. pneumoniae DNA (PCR) Not Detected (NotDetected) 06/11/22 19:51 Coronavirus OC43 (PCR) Not Detected (NotDetected) 06/11/22 19:51 Coronavirus HKU1 (PCR) Not Detected (NotDetected) 06/11/22 19:51 Coronavirus 229E (PCR) Not Detected (NotDetected) 06/11/22 19:51 SARS-CoV-2 (PCR) Not Detected (NotDetected) 06/11/22 19:51 Coronavirus NL63 (PCR) Not Detected (NotDetected) 06/11/22 19:51 Human Metapneumovir PCR Not Detected (NotDetected) 06/11/22 19:51 Influenza Type A (PCR) Not Detected (NotDetected) 06/11/22 19:51 Influenza Type B (PCR) Not Detected (NotDetected) 06/11/22 19:51 M. pneumoniae (PCR) Not Detected (NotDetected) 06/11/22 19:51 Parainfluenza 1 (PCR) Not Detected (NotDetected) 06/11/22 19:51 Parainfluenza 2 (PCR) Not Detected (NotDetected) 06/11/22 19:51 Parainfluenza 3 (PCR) Not Detected (NotDetected) 06/11/22 19:51 Parainfluenza 4 (PCR) Not Detected (NotDetected) 06/11/22 19:51 RSV (PCR) Not Detected (NotDetected) 06/11/22 19:51 Entero/Rhino (PCR) DETECTED (NotDetected) A* 06/11/22 19:51 SARS-CoV-2, RNA, NAAT NEGATIVE (NEGATIVE) 06/11/22 18:38 Impressions Chest X-Ray 06/11/22 18:15 XR chest 1V portable HISTORY: Shortness of breath. COMPARISON: Chest 05/14/2022. FINDINGS: No pneumothorax. No pleural effusions. The correct silhouette remains enlarged. There is mild interstitial pulmonary edema which has slightly improved. IMPRESSION: Cardiomegaly with slight improvement in the mild interstitial pulmonary edema. ACT 112: Negative or not required by law. Electronically signed by: Tani Pedroza M.D. 06/11/2022 7:36 PM ECG Additional Comments: EKG poor tracing - reveals NSR t 84, normal axis, RQ=834, QRS=98, PTb=047, no acute ischemic changes Code Status & VTE Plan VTE Prophylaxis Plan VTE Prophylaxis will be ordered: Yes PG Care Time/CCT Total # of Minutes Spent Total Time Spent with Patient: Total time spent is greater than 50% in coordination of care (as documented) at patient's floor/unit and/or counseling patient: Coding Level of Care Code 59867 Initial Inpt Care Lvl 3 Diagnoses Dyspnea R06.00 Asthma J45.909 History of deep venous thrombosis Z86.718 Depression F32.9 Hypertension I10 Diabetes type 2, uncontrolled E11.65
[2022-06-11] MEDS ORDERED: PHARMACY GLYCEMIC MGMT CONSULT PRN (20:56)
[2022-06-11] MEDS ORDERED: FUROSEMIDE 40 MG/4 ML VIAL IV STA (21:00)
[2022-06-11 21:01] LABS: Adenovirus PCR Not Detected (NotDetected); Bordetella parapertussis PCR Not Detected (NotDetected); Bordetella pertussis PCR Not Detected (NotDetected); Chlamydia pneumoniae PCR Not Detected (NotDetected); Coronavirus 229E PCR Not Detected (NotDetected); Coronavirus CoV-2 (COVID19)PCR Not Detected (NotDetected); Coronavirus HKU1 PCR Not Detected (NotDetected); Coronavirus NL63 PCR Not Detected (NotDetected); Coronavirus OC43PCR Not Detected (NotDetected); Human Metapneumovirus PCR Not Detected (NotDetected); Influenza A PCR Not Detected (NotDetected); Influenza B PCR Not Detected (NotDetected); Mycoplasma pneumoniae PCR Not Detected (NotDetected); Parainfluenza Virus 1 PCR Not Detected (NotDetected); Parainfluenza Virus 2 PCR Not Detected (NotDetected); Parainfluenza Virus 3 PCR Not Detected (NotDetected); Parainfluenza Virus 4 PCR Not Detected (NotDetected); Respiratory Syncytial VirusPCR Not Detected (NotDetected)
[2022-06-11 21:02] LABS: Rhinovirus/Enterovirus PCR DETECTED (NotDetected)
[2022-06-11] MEDS ORDERED: LANTUS PER UNIT CHARGE SQ STA (21:04)
[2022-06-11] MEDS ORDERED: ACETAMINOPHEN 325 MG TAB PO PRN (23:33)
[2022-06-11] MEDS ORDERED: hydrOXYzine HCl 25 MG TAB PO PRN (23:33)
[2022-06-11] MEDS ORDERED: CETIRIZINE HCL 10 MG TABLET PO PRN (23:33)
[2022-06-11] MEDS ORDERED: ALBUTEROL HFA 8 GM INHALER INH PRN (23:33)
[2022-06-11] MEDS ORDERED: GLUCAGON FOR INJ 1 MG VIAL SQ PRN (23:33)
[2022-06-11] MEDS ORDERED: guaiFENesin SUGAR FREE 200 MG/10 ML UDC PO PRN (23:33)
[2022-06-11] MEDS ORDERED: CARBOHYDRATES FOR HYPOGLYCEMIA PO PRN (23:33)
[2022-06-11] MEDS ORDERED: DEXTROSE 50% 50 ML SYRINGE IV PRN (23:33)
[2022-06-11] MEDS ORDERED: GLUCOSE 10 TAB/TUBE PO PRN (23:33)
[2022-06-11] MEDS ORDERED: GLUCOSE 40% GEL 15 GM TUBE PO PRN (23:33)
[2022-06-12] MEDS: ALBUT/IPRATROP 3MG/0.5MG NEB 3 ML VIAL NEB SCH ×3 (00:03→07:24)
[2022-06-12] MEDS: RIVAROXABAN 20 MG TAB PO SCH ×2 (00:32→20:23)
[2022-06-12] MEDS: GABAPENTIN 600 MG TAB PO SCH ×2 (00:32→20:24)
[2022-06-12] MEDS: TOPIRAMATE 25 MG TAB PO SCH ×2 (00:33→20:22)
[2022-06-12] MEDS: DOXEPIN HCL 10 MG CAPSULE PO SCH ×2 (00:33→20:24)
[2022-06-12] MEDS: INSULIN ASPART PER UNIT SC SCH ×7 (00:34→22:07)
[2022-06-12] MEDS: METOPROLOL TARTRATE 25 MG TAB PO SCH ×3 (00:34→20:23)
--- NOTE | 2022-06-12 06:46 | Ultrasound Report ---
RIGHT LOWER EXTREMITY VENOUS DOPPLER CLINICAL HISTORY: Right lower extremity edema. COMPARISON STUDY: Right lower extremity venous Doppler ultrasound September 23, 2021. TECHNIQUE: Sonography of the deep venous system of the right lower extremity was performed. Compress ion and augmentation were evaluated. FINDINGS: This exam was compromised due to suboptimal penetration with lower extremity swelling. No e vidence for acute deep venous thrombus within the right lower extremity. There is possible chronic th rombus within the right popliteal vein. This could be artifactual. IMPRESSION: Exam significantly compromised from a technical standpoint. No definite evidence for acut e deep venous thrombus. Possible thrombus within the right popliteal vein. ACT 112: Negative or not required by law. Electronically signed by: Keagan Guthrie M.D. 06/12/2022 6:44 AM
[2022-06-12] MEDS ORDERED: PERFLUTREN LIPID MICROSPHERE (DEFINITY) IV ONE (06:56)
[2022-06-12 08:28] LABS: Hematocrit (blood only) 36.9 % (40.1-51.0); Hemoglobin 12.5 g/dl (14.0-18.0); Mean Corpuscular Hemoglobin 29.4 pg (25.0-34.0); Mean Corpuscular Hgb Conc 33.9 g/dL (32.0-36.0); Mean Corpuscular Volume 86.8 fL (80.0-100.0); Mean Platelet Volume 9.3 fL (9.4-12.4); Platelet Count 233 K/uL (130-400); RDW Standard Deviation 43.8 fL (36.4-46.3); Red Blood Count 4.25 M/uL (4.63-6.08); White Blood Count 8.01 K/ul (4.8-10.8)
--- NOTE | 2022-06-12 08:31 | Pharmacy Report ---
Pharmacy Glycemic Short Note 2 - Date of Service June 12, 2022 - Glycemic Short BSG Results (Last 24 hours): 06/11/22 06/11/22 06/12/22 18:35 23:33 04:13 Glucose 149 H POC Glucose 245 H 196 H 06/12/22 07:46 Glucose POC Glucose 179 H OUTPATIENT ANTIDIABETIC REGIMEN: * U-500 insulin - 100 units TID meals, last dose at 2:23pm on 06/11 * A1c 6.7 08/29/21, updated A1c on order ASSESSMENT: * 52 year old male admitted for dyspnea/asthma, PMH VTE on Xarelto, BMI 56, Type 2 DM on U500 insulin at home * Started basal bolus yesterday, BSGs improving, will tighten CF/CR and increase basal at this time PLAN FOR INPATIENT GLYCEMIC CONTROL: * Hold outpatient U500 insulin * Basal insulin * Lantus SQ BID * 55 units for BSG 180 or less * 70 units for BSG > 180 * Bolus insulin * NovoLog per scale ACHS or Q6hrs while NPO * Goal Range: Low 110 mg/dL - High 140 mg/dL * Correction Factor: 8 mg/dL/unit * Nutritional / Prandial insulin per carb ratio of 1 unit per 3 grams CHO consumed
[2022-06-12 08:38] LABS: Estimated Average Glucose 209 mg/dl; Hemoglobin A1C 8.9 % (4.5-5.6)
[2022-06-12 08:49] LABS: BUN Creatinine Ratio 11.8 (10-20); Calcium 8.9 mg/dl (8.5-10.1); Creatinine Clr Calc Pharmacy 150.7 ml/min; Est GFR (African American) 96.1 ml/min; Est GFR (Non-African American) 82.9 ml/min; Magnesium 1.7 mg/dl (1.7-2.4); Phosphorus 4.3 mg/dl (2.5-4.9); Potassium 3.7 mmol/L (3.5-5.1)
[2022-06-12] MEDS: LANTUS PER UNIT CHARGE SQ SCH (08:56)
[2022-06-12] MEDS: CHOLECALCIFEROL 5,000 UNITS 125 MCG TAB PO SCH (08:57)
[2022-06-12] MEDS: lisinopril 2.5 MG TAB PO SCH (08:57)
[2022-06-12] MEDS: FLUoxetine HCL 20 MG CAP PO SCH (08:57)
[2022-06-12] MEDS: MULTIVITAMIN TAB PO SCH (08:57)
[2022-06-12] MEDS: PANTOprazole 40 MG TAB PO SCH (08:57)
[2022-06-12] MEDS: FUROSEMIDE 40 MG/4 ML VIAL IV SCH ×2 (08:58→22:08)
--- NOTE | 2022-06-12 08:59 | XCELERA ---
[id number]
[2022-06-12] MEDS ORDERED: POTASSIUM CHLORIDE CRTAB 20 MEQ TABCR PO STA (12:08)
--- NOTE | 2022-06-12 12:11 | Pharmacy Report ---
Pharmacy Glycemic Short Note 2 - Date of Service June 12, 2022 - Glycemic Short BSG Results (Last 24 hours): 06/11/22 06/11/22 06/12/22 18:35 23:33 04:13 Glucose 149 H POC Glucose 245 H 196 H 06/12/22 06/12/22 06/12/22 07:46 08:16 11:41 Glucose 191 H POC Glucose 179 H 246 H OUTPATIENT ANTIDIABETIC REGIMEN: * U-500 insulin - 100 units TID meals, last dose at 2:23pm on 06/11 * A1c 8.9 06/12/22 ASSESSMENT: * 52 year old male admitted for dyspnea/asthma, PMH VTE on Xarelto, BMI 56, Type 2 DM on U500 insulin at home * Started basal bolus yesterday, BSGs improved over night and increase with meals today, will tighten CF/CR and increase basal at this time PLAN FOR INPATIENT GLYCEMIC CONTROL: * Hold outpatient U500 insulin * Basal insulin * Lantus SQ BID * 70 units for BSG 180 or less * 80 units for BSG > 180 * Bolus insulin * NovoLog per scale ACHS or Q6hrs while NPO * Goal Range: Low 110 mg/dL - High 140 mg/dL * Correction Factor: 7 mg/dL/unit * Nutritional / Prandial insulin per carb ratio of 1 unit per 2 grams CHO consumed
[2022-06-12] MEDS: MAGNESIUM SULFATE / D5W 1 GM/100 ML BAG IV SCH ×2 (13:03→14:17)
[2022-06-12] MEDS: MAGNESIUM CHLORIDE W/CALCIUM 64MG DELAYED REL TAB PO SCH ×2 (15:30→20:23)
--- NOTE | 2022-06-12 16:09 | Electrocardiogram Report ---
Test Reason : Blood Pressure : / mmHG Vent. Rate : 084 BPM Atrial Rate : 084 BPM P-R Int : 176 ms QRS Dur : 098 ms QT Int : 386 ms P-R-T Axes : 080 069 052 degrees QTc Int : 456 ms Poor data quality, interpretation may be adversely affected Normal sinus rhythm Low voltage QRS Borderline ECG When compared with ECG of 21-MAR-2022 12:51, No significant change was found Confirmed by Tristen Parra ([id number]) on 06/12/2022 4:09:27 PM Referred By: Sohan Yates Confirmed By:Tristen Parra
--- NOTE | 2022-06-12 20:47 | Hospitalist Progress Note ---
Date of Service June 12, 2022 Assessment & Plan (1) CHF (congestive heart failure): Plan: 52yo male with history of asthma presents with progressive dyspnea as well as productive cough, orthopnea, weight gain and edema. Patient reports feeling that he is "full of fluid". Prior cardiac testing revealed normal myocardial perfusion on pharmacologic stress test. Normal Biventricular systolic function with no significant valvular abnormality on echocardiogram 08/17/21. Seen by Cardiology as an outpt on day of admission with these complaints. Found to be hypoxemic with resting saturation of 90% on room air with significant edema in RLE and was subsequently referred to the ER for additional testing and treatment. Clinically presents as CHF but does lack rales on exam, normal BNP may be falsely low in setting of obesity. Normal biventricular function and no valvular heart disease on prior echo. Patient's body habitus does favor diagnosis of obesity hypoventilation, possible EVITA. Possible PH? Right HF Patient is on Rivaroxaban for history of RLE DVT. Difficult to dose with morbid obesity. His pulmonary viral panel did come back POSITIVE for Rhinovirus which could be contributing greatly to symptoms as well. Do not suspect bacterial PNA given no rmal Procal Repeat ECHO here very difficult to assess due to body habitus, but shows possible mild decrease in LV function, dilated IVC Doppler RLE chronic thrombus popliteal vein Mildly improved and weight down since admission however he was weighted in the ER bed with his leg prosthesis on which does weight 5 kg -continue lasix 80mg IV bid -strict I/Os, daily weights, fluid restrict to 1800 mL/day -follow BMP, Mag, replace lytes as needed -aim for diuresis of -1L daily -needs improved BP control-continue metoprolol 25mg po bid and lisinopril 2.5mg daily but could increase doses (2) Rhinovirus: Plan: noted with increased sputum production, no fevers, with dyspnea supportive care, bronchodilators droplet and contact precautions (3) Hypomagnesemia: Plan: replace with po Mag as he thought the IV was uncomfortable follow Mag level in AM (4) Asthma: Plan: No wheezing noted on exam. Patient does report wheezing prior to arrival which improved after nebulized Albuterol. Enterovirus infection possibly contributing as well -Continue DuoNebs and Albuterol PRN -Continue Cetirizine (5) History of deep venous thrombosis: Plan: Patient with history of VTE on Rivaroxaban -chronic DVT on Doppler here in right leg -Continue Rivaroxaban. Consider treatment with Coumadin rather than Rivaroxaban given patient's high BMI (6) Depression: Plan: Chronic. Stable -Continue Fluoxetine 60mg po qAM -Hydroxyzine PRN (7) Hypertension: Plan: Blood pressure controlled -Continue Metoprolol, lisinopril -Continue to monitor (8) Diabetes type 2, uncontrolled: Plan: Patient with DM. Last ByjF8C=0.7 on 08/29/21. He is on 100u of U-500 insulin daily -Pharmacy glycemic management consultation appreciated to assist with insulin management -A1C uncontrolled at 8.9% -Continue Lisinopril 2.5mg po daily Plan DVT proph-Xarelto Dispo-continued stay Admission and Anticipated Discharge Date Admission Date: June 11, 2022 Subjective Pt has frequent coughing especially with trying to lie flat. No SOB. Not as much sputum production today. Still feels like leg is swollen a lot and also has swelling in neck and hands/arms. No fevers/chills Tele with NSR, rates 60-80s Review of Systems Review of Systems: All systems reviewed & are unremarkable except as noted in HPI & below Physical Exam Constitutional: WD/WN, vitals as above + obese Eyes: + anicteric sclerae Neck: trachea midline, no thyromegaly Respiratory: normal respiratory effort; no cough and not tachypneic Auscultation: + diminished lung sounds (throughout due to body habitus); no crackles, no rhonchi and no wheezes Cardiovascular: Rate/Rhythm: regular rate and regular rhythm Heart Sounds: no murmur Extremities: + edema (RLE with 3+ pitting woody edema to thigh;LLE BKA) Chest (Breasts): Chest: normal inspection of chest Gastrointestinal (Abdomen): normal bowel sounds, soft, nontender, no hepatosplenomegaly Musculoskeletal: Extremities: + extremities abnormal to inspection (Left BKA), no cyanosis and no clubbing Skin: no rashes, warm and dry Neurologic: moves all extremities and awake; no focal motor deficits Psychiatric: A+Ox3, euthymic affect Results & Data Results & Data ([facility]) Vital Signs (Past 12 Hours) Vital Signs Temp Pulse Resp BP Pulse Ox O2 Del Method 08/25/22 19:51 37 C 71 20 150/64 H 95 Room Air 06/12/22 11:50 36.8 C 68 18 151/75 H 92 Room Air Laboratory Results 06/12/22 06/12/22 06/12/22 Range/Units 20:23 16:49 11:41 WBC (4.8-10.8) K/ul RBC (4.63-6.08) M/uL Hgb (14.0-18.0) g/dl Hct (40.1-51.0) % MCV (80.0-100.0) fL MCH (25.0-34.0) pg MCHC (32.0-36.0) g/dL RDW Std Deviation (36.4-46.3) fL RDW Coeff of Wil (11.5-14.5) % Plt Count (130-400) K/uL MPV (9.4-12.4) fL Sodium (136-145) mmol/L Potassium (3.5-5.1) mmol/L Chloride (98-107) mmol/L Carbon Dioxide (21-32) mmol/L Anion Gap (3-11) BUN (6-23) mg/dl Creatinine (0.6-1.4) mg/dl Est Cr Clr Drug Dosing ml/min Est GFR ( Amer) ml/min Est GFR (Non-Af Amer) ml/min BUN/Creatinine Ratio (10-20) Glucose (70-99(Fasting)) mg/dl POC Glucose 137 H 122 H 246 H (70-99) mg/dl Estimat Average Glucose mg/dl Hemoglobin A1c (4.5-5.6) % Calcium (8.5-10.1) mg/dl Phosphorus (2.5-4.9) mg/dl Magnesium (1.7-2.4) mg/dl Troponin I High Sens (0-20) pg/ml Adenovirus (PCR) (NotDetected) B. pertussis DNA (PCR) (NotDetected) B.parapertussis DNA PCR (NotDetected) C. pneumoniae DNA (PCR) (NotDetected) Coronavirus OC43 (PCR) (NotDetected) Coronavirus HKU1 (PCR) (NotDetected) Coronavirus 229E (PCR) (NotDetected) SARS-CoV-2 (PCR) (NotDetected) Coronavirus NL63 (PCR) (NotDetected) Human Metapneumovir PCR (NotDetected) Influenza Type A (PCR) (NotDetected) Influenza Type B (PCR) (NotDetected) M. pneumoniae (PCR) (NotDetected) Parainfluenza 1 (PCR) (NotDetected) Parainfluenza 2 (PCR) (NotDetected) Parainfluenza 3 (PCR) (NotDetected) Parainfluenza 4 (PCR) (NotDetected) RSV (PCR) (NotDetected) Entero/Rhino (PCR) (NotDetected) 06/12/22 06/12/22 06/12/22 Range/Units 08:16 08:16 08:16 WBC 8.01 (4.8-10.8) K/ul RBC 4.25 L (4.63-6.08) M/uL Hgb 12.5 L (14.0-18.0) g/dl Hct 36.9 L (40.1-51.0) % MCV 86.8 (80.0-100.0) fL MCH 29.4 (25.0-34.0) pg MCHC 33.9 (32.0-36.0) g/dL RDW Std Deviation 43.8 (36.4-46.3) fL RDW Coeff of Wil 14.0 (11.5-14.5) % Plt Count 233 (130-400) K/uL MPV 9.3 L (9.4-12.4) fL Sodium 137 (136-145) mmol/L Potassium 3.7 (3.5-5.1) mmol/L Chloride 100 (98-107) mmol/L Carbon Dioxide 30 (21-32) mmol/L Anion Gap 7 (3-11) BUN 12 (6-23) mg/dl Creatinine 1.02 (0.6-1.4) mg/dl Est Cr Clr Drug Dosing 150.7 ml/min Est GFR ( Amer) 96.1 ml/min Est GFR (Non-Af Amer) 82.9 ml/min BUN/Creatinine Ratio 11.8 (10-20) Glucose 191 H (70-99(Fasting)) mg/dl POC Glucose (70-99) mg/dl Estimat Average Glucose mg/dl Hemoglobin A1c (4.5-5.6) % Calcium 8.9 (8.5-10.1) mg/dl Phosphorus 4.3 (2.5-4.9) mg/dl Magnesium 1.7 (1.7-2.4) mg/dl Troponin I High Sens 25.9 H (0-20) pg/ml Adenovirus (PCR) (NotDetected) B. pertussis DNA (PCR) (NotDetected) B.parapertussis DNA PCR (NotDetected) C. pneumoniae DNA (PCR) (NotDetected) Coronavirus OC43 (PCR) (NotDetected) Coronavirus HKU1 (PCR) (NotDetected) Coronavirus 229E (PCR) (NotDetected) SARS-CoV-2 (PCR) (NotDetected) Coronavirus NL63 (PCR) (NotDetected) Human Metapneumovir PCR (NotDetected) Influenza Type A (PCR) (NotDetected) Influenza Type B (PCR) (NotDetected) M. pneumoniae (PCR) (NotDetected) Parainfluenza 1 (PCR) (NotDetected) Parainfluenza 2 (PCR) (NotDetected) Parainfluenza 3 (PCR) (NotDetected) Parainfluenza 4 (PCR) (NotDetected) RSV (PCR) (NotDetected) Entero/Rhino (PCR) (NotDetected) 06/12/22 06/12/22 06/12/22 Range/Units 08:16 07:46 04:13 WBC (4.8-10.8) K/ul RBC (4.63-6.08) M/uL Hgb (14.0-18.0) g/dl Hct (40.1-51.0) % MCV (80.0-100.0) fL MCH (25.0-34.0) pg MCHC (32.0-36.0) g/dL RDW Std Deviation (36.4-46.3) fL RDW Coeff of Wil (11.5-14.5) % Plt Count (130-400) K/uL MPV (9.4-12.4) fL Sodium (136-145) mmol/L Potassium (3.5-5.1) mmol/L Chloride (98-107) mmol/L Carbon Dioxide (21-32) mmol/L Anion Gap (3-11) BUN (6-23) mg/dl Creatinine (0.6-1.4) mg/dl Est Cr Clr Drug Dosing ml/min Est GFR ( Amer) ml/min Est GFR (Non-Af Amer) ml/min BUN/Creatinine Ratio (10-20) Glucose (70-99(Fasting)) mg/dl POC Glucose 179 H 196 H (70-99) mg/dl Estimat Average Glucose 209 mg/dl Hemoglobin A1c 8.9 H (4.5-5.6) % Calcium (8.5-10.1) mg/dl Phosphorus (2.5-4.9) mg/dl Magnesium (1.7-2.4) mg/dl Troponin I High Sens (0-20) pg/ml Adenovirus (PCR) (NotDetected) B. pertussis DNA (PCR) (NotDetected) B.parapertussis DNA PCR (NotDetected) C. pneumoniae DNA (PCR) (NotDetected) Coronavirus OC43 (PCR) (NotDetected) Coronavirus HKU1 (PCR) (NotDetected) Coronavirus 229E (PCR) (NotDetected) SARS-CoV-2 (PCR) (NotDetected) Coronavirus NL63 (PCR) (NotDetected) Human Metapneumovir PCR (NotDetected) Influenza Type A (PCR) (NotDetected) Influenza Type B (PCR) (NotDetected) M. pneumoniae (PCR) (NotDetected) Parainfluenza 1 (PCR) (NotDetected) Parainfluenza 2 (PCR) (NotDetected) Parainfluenza 3 (PCR) (NotDetected) Parainfluenza 4 (PCR) (NotDetected) RSV (PCR) (NotDetected) Entero/Rhino (PCR) (NotDetected) 06/11/22 06/11/22 Range/Units 23:33 19:51 WBC (4.8-10.8) K/ul RBC (4.63-6.08) M/uL Hgb (14.0-18.0) g/dl Hct (40.1-51.0) % MCV (80.0-100.0) fL MCH (25.0-34.0) pg MCHC (32.0-36.0) g/dL RDW Std Deviation (36.4-46.3) fL RDW Coeff of Wil (11.5-14.5) % Plt Count (130-400) K/uL MPV (9.4-12.4) fL Sodium (136-145) mmol/L Potassium (3.5-5.1) mmol/L Chloride (98-107) mmol/L Carbon Dioxide (21-32) mmol/L Anion Gap (3-11) BUN (6-23) mg/dl Creatinine (0.6-1.4) mg/dl Est Cr Clr Drug Dosing ml/min Est GFR ( Amer) ml/min Est GFR (Non-Af Amer) ml/min BUN/Creatinine Ratio (10-20) Glucose (70-99(Fasting)) mg/dl POC Glucose 245 H (70-99) mg/dl Estimat Average Glucose mg/dl Hemoglobin A1c (4.5-5.6) % Calcium (8.5-10.1) mg/dl Phosphorus (2.5-4.9) mg/dl Magnesium (1.7-2.4) mg/dl Troponin I High Sens (0-20) pg/ml Adenovirus (PCR) Not Detected (NotDetected) B. pertussis DNA (PCR) Not Detected (NotDetected) B.parapertussis DNA PCR Not Detected (NotDetected) C. pneumoniae DNA (PCR) Not Detected (NotDetected) Coronavirus OC43 (PCR) Not Detected (NotDetected) Coronavirus HKU1 (PCR) Not Detected (NotDetected) Coronavirus 229E (PCR) Not Detected (NotDetected) SARS-CoV-2 (PCR) Not Detected (NotDetected) Coronavirus NL63 (PCR) Not Detected (NotDetected) Human Metapneumovir PCR Not Detected (NotDetected) Influenza Type A (PCR) Not Detected (NotDetected) Influenza Type B (PCR) Not Detected (NotDetected) M. pneumoniae (PCR) Not Detected (NotDetected) Parainfluenza 1 (PCR) Not Detected (NotDetected) Parainfluenza 2 (PCR) Not Detected (NotDetected) Parainfluenza 3 (PCR) Not Detected (NotDetected) Parainfluenza 4 (PCR) Not Detected (NotDetected) RSV (PCR) Not Detected (NotDetected) Entero/Rhino (PCR) DETECTED A* (NotDetected) PG Care Time/CCT Total # of Minutes Spent Total Time Spent with Patient: Total time spent is greater than 50% in coordination of care (as documented) at patient's floor/unit and/or counseling patient: Coding Level of Care Code 13786 Subseq Hosp Care Lvl 2 Diagnoses CHF (congestive heart failure) I50.9 Rhinovirus B34.8 Hypomagnesemia E83.42 Asthma J45.909 History of deep venous thrombosis Z86.718 Depression F32.9 Hypertension I10 Diabetes type 2, uncontrolled E11.65
[2022-06-12] MEDS ORDERED: LANTUS PER UNIT CHARGE SQ ONE (21:00)
[2022-06-12] MEDS ORDERED: FUROSEMIDE 40 MG/4 ML VIAL IV SCH (21:00)
[2022-06-12] MEDS: ROSUVASTATIN CALCIUM 20 MG TAB PO SCH (22:11)
[2022-06-13] MEDS ORDERED: INSULIN ASPART PER UNIT SC SCH
[2022-06-13] MEDS: LANTUS PER UNIT CHARGE SQ SCH ×2 (00:12→09:25)
[2022-06-13 06:47] LABS: Hematocrit (blood only) 37.1 % (40.1-51.0); Hemoglobin 12.3 g/dl (14.0-18.0); Mean Corpuscular Hemoglobin 29.6 pg (25.0-34.0); Mean Corpuscular Hgb Conc 33.2 g/dL (32.0-36.0); Mean Corpuscular Volume 89.4 fL (80.0-100.0); Mean Platelet Volume 9.6 fL (9.4-12.4); Platelet Count 234 K/uL (130-400); RDW Coefficient of Variation 14.1 % (11.5-14.5); RDW Standard Deviation 45.9 fL (36.4-46.3); Red Blood Count 4.15 M/uL (4.63-6.08); White Blood Count 8.05 K/ul (4.8-10.8)
[2022-06-13 07:25] LABS: BUN Creatinine Ratio 16.5 (10-20); Calcium 8.8 mg/dl (8.5-10.1); Creatinine Clr Calc Pharmacy 148.4 ml/min; Magnesium 1.8 mg/dl (1.7-2.4); Potassium 3.9 mmol/L (3.5-5.1)
[2022-06-13] MEDS ORDERED: POTASSIUM CHLORIDE CRTAB 20 MEQ TABCR PO STA (08:00)
[2022-06-13] MEDS: INSULIN ASPART PER UNIT SC SCH ×5 (09:23→20:37)
[2022-06-13] MEDS: FLUoxetine HCL 20 MG CAP PO SCH (09:27)
[2022-06-13] MEDS: lisinopril 2.5 MG TAB PO SCH (09:27)
[2022-06-13] MEDS: MAGNESIUM CHLORIDE W/CALCIUM 64MG DELAYED REL TAB PO SCH ×2 (09:27→20:17)
[2022-06-13] MEDS: FUROSEMIDE 40 MG/4 ML VIAL IV SCH ×2 (09:27→16:40)
[2022-06-13] MEDS: MULTIVITAMIN TAB PO SCH (09:28)
[2022-06-13] MEDS: CHOLECALCIFEROL 5,000 UNITS 125 MCG TAB PO SCH (09:28)
[2022-06-13] MEDS: METOPROLOL TARTRATE 25 MG TAB PO SCH ×2 (09:28→20:17)
[2022-06-13] MEDS: PANTOprazole 40 MG TAB PO SCH (09:28)
--- NOTE | 2022-06-13 09:53 | Pharmacy Report ---
Pharmacy Glycemic Short Note 2 - Date of Service June 13, 2022 - Glycemic Short BSG Results (Last 24 hours): 06/12/22 06/12/22 06/12/22 11:41 16:49 20:23 Glucose POC Glucose 246 H 122 H 137 H 06/13/22 06/13/22 06/13/22 00:06 06:21 07:42 Glucose 189 H POC Glucose 185 H 208 H OUTPATIENT ANTIDIABETIC REGIMEN: * U-500 insulin - 100 units TID meals, last dose at 2:23pm on 06/11 * A1c 8.9 06/12/22 ASSESSMENT: 06/12 * Patient received total of 190 units of insulin yesterday, of which 105 units were basal insulin * Fasting BSG 189 mg/dL - will adjust evening scale and titrate up ~10-20% on basal * BSGs tend to be higher with lunch and trend down throughout the day, therefore will have tighter coverage with breakfast and looser later in day 06/11 * 52 year old male admitted for dyspnea/asthma, PMH VTE on Xarelto, BMI 56, Type 2 DM on U500 insulin at home * Started basal bolus yesterday, BSGs improved over night and increase with meals today, will tighten CF/CR and increase basal at this time PLAN FOR INPATIENT GLYCEMIC CONTROL: * Hold outpatient U500 insulin * Basal insulin * Lantus SQ BID * 70 units daily in AM * 45-55 units daily in PM * Bolus insulin * NovoLog per scale ACHS or Q6hrs while NPO * Goal Range: Low 110 mg/dL - High 140 mg/dL * Correction Factor: 10 mg/dL/unit (CF of 6 with breakfast only) * Nutritional / Prandial insulin per carb ratio of 1 unit per 4 grams CHO consumed (CR of 3 with breakfast only)
--- NOTE | 2022-06-13 17:40 | Hospitalist Progress Note ---
Date of Service June 13, 2022 Assessment & Plan (1) CHF (congestive heart failure): Plan: 52yo male with history of asthma presents with progressive dyspnea as well as productive cough, orthopnea, weight gain and edema. Patient reports feeling that he is "full of fluid". Prior cardiac testing revealed normal myocardial perfusion on pharmacologic stress test. Normal Biventricular systolic function with no significant valvular abnormality on echocardiogram 08/17/21. Seen by Cardiology as an outpt on day of admission with these complaints. Found to be hypoxemic with resting saturation of 90% on room air with significant edema in RLE and was subsequently referred to the ER for additional testing and treatment. Presumed Acute on chronic HFpEF Clinically presents as CHF but does lack rales on exam, and with normal BNP may be falsely low in setting of obesity. Normal biventricular function and no valvular heart disease on prior echo. CXR with mild pulm edema, cardiomegaly Patient's body habitus does favor diagnosis of obesity hypoventilation, possible EVITA. Possible PH? Right HF Patient is on Rivaroxaban for history of RLE DVT. Difficult to dose with morbid obesity. His pulmonary viral panel did come back POSITIVE for Rhinovirus which could be contributing greatly to symptoms as well. Do not suspect bacterial PNA given normal Procal POx here now 92% on RA at rest Repeat ECHO here very difficult to assess due to body habitus, but shows possible mild decrease in LV function, dilated IVC Doppler RLE chronic thrombus popliteal vein Improving with weight down 1.7 kg since yesterday, edema improving, about neg -2 .2L overall -increase lasix to 80mg IV tid -strict I/Os, daily weights, fluid restrict to 1800 mL/day -follow BMP, Mag, replace lytes as needed-give KCl 20 meq and po Mag -aim for diuresis of -1-2 L daily -needs improved BP control-continue metoprolol 25mg po bid and lisinopril 2.5mg daily but could increase doses if BPs remain elevated-improving today (2) Rhinovirus: Plan: noted with increased sputum production, no fevers, with dyspnea no PNA on CXR cough better today supportive care, bronchodilators prn droplet and contact precautions (3) Hypomagnesemia: Plan: replaced with po Mag aand improved follow Mag level in AM (4) Asthma: Plan: No wheezing noted on exam. Patient does report wheezing prior to arrival which improved after nebulized Albuterol. Enterovirus infection possibly contributing as well -Continue DuoNebs and Albuterol PRN -Continue Cetirizine (5) History of deep venous thrombosis: Plan: Patient with history of VTE on Rivaroxaban -chronic DVT on Doppler here in right leg -Continue Rivaroxaban. Consider treatment with Coumadin rather than Rivaroxaban given patient's high BMI-defer to PCP (6) Depression: Plan: Chronic. Stable -Continue Fluoxetine 60mg po qAM -Hydroxyzine PRN (7) Hypertension: Plan: Blood pressure controlled -Continue Metoprolol, lisinopril -Continue to monitor (8) Diabetes type 2, uncontrolled: Plan: Patient with DM. Last AlrI1P=9.7 on 08/29/21. He is on 100u of U-500 insulin daily -Pharmacy glycemic management consultation appreciated to assist with insulin management -A1C uncontrolled at 8.9% -Continue Lisinopril 2.5mg po daily Plan DVT proph-Xarelto Dispo-continued stay Admission and Anticipated Discharge Date Admission Date: June 11, 2022 Subjective Pt still feels generally unwell but can't describe it other than by saying he feels foggy and feels like he should have a headache but does not have a headache. Was able to walk to the bathroom and back today without coughing which is an improvement. Had a lot of coughing when he woke up today and was not aware he could ask for an inhaler treatment. He had 2 BMs today and the second was a little watery, no blood or melena. Feels the swelling in his right leg is going down and can see his toes again. Tele with NSR, rates 60s Review of Systems Review of Systems: All systems reviewed & are unremarkable except as noted in HPI & below Physical Exam Constitutional: WD/WN, vitals as above + obese Eyes: + anicteric sclerae Neck: trachea midline, no thyromegaly Respiratory: normal respiratory effort; no cough and not tachypneic Auscultation: + diminished lung sounds (throughout due to body habitus); no crackles, no rhonchi and no wheezes Cardiovascular: Rate/Rhythm: regular rate and regular rhythm Heart Sounds: no murmur Extremities: + edema (RLE with 2+ pitting woody edema to thigh/improved;LLE BKA) Chest (Breasts): Chest: normal inspection of chest Gastrointestinal (Abdomen): normal bowel sounds, soft, nontender, no hepatosplenomegaly Musculoskeletal: Extremities: + extremities abnormal to inspection (Left BKA), no cyanosis and no clubbing Skin: no rashes, warm and dry Neurologic: moves all extremities and awake; no focal motor deficits Psychiatric: A+Ox3, euthymic affect Results & Data Results & Data ([facility]) Vital Signs (Past 12 Hours) Vital Signs Temp Pulse Resp BP Pulse Ox O2 Del Method 06/13/22 16:17 36.8 C 59 L 19 145/73 H 92 Room Air 06/13/22 08:00 Room Air 06/13/22 08:26 36.5 C 74 18 142/72 H 95 Room Air Laboratory Results 06/13/22 06/13/22 06/13/22 Range/Units 17:10 11:12 07:42 WBC (4.8-10.8) K/ul RBC (4.63-6.08) M/uL Hgb (14.0-18.0) g/dl Hct (40.1-51.0) % MCV (80.0-100.0) fL MCH (25.0-34.0) pg MCHC (32.0-36.0) g/dL RDW Std Deviation (36.4-46.3) fL RDW Coeff of Wil (11.5-14.5) % Plt Count (130-400) K/uL MPV (9.4-12.4) fL Sodium (136-145) mmol/L Potassium (3.5-5.1) mmol/L Chloride (98-107) mmol/L Carbon Dioxide (21-32) mmol/L Anion Gap (3-11) BUN (6-23) mg/dl Creatinine (0.6-1.4) mg/dl Est Cr Clr Drug Dosing ml/min Est GFR ( Amer) ml/min Est GFR (Non-Af Amer) ml/min BUN/Creatinine Ratio (10-20) Glucose (70-99(Fasting)) mg/dl POC Glucose 116 H 192 H 208 H (70-99) mg/dl Calcium (8.5-10.1) mg/dl Phosphorus (2.5-4.9) mg/dl Magnesium (1.7-2.4) mg/dl 06/13/22 06/13/22 06/13/22 Range/Units 06:21 06:21 00:06 WBC 8.05 (4.8-10.8) K/ul RBC 4.15 L (4.63-6.08) M/uL Hgb 12.3 L (14.0-18.0) g/dl Hct 37.1 L (40.1-51.0) % MCV 89.4 (80.0-100.0) fL MCH 29.6 (25.0-34.0) pg MCHC 33.2 (32.0-36.0) g/dL RDW Std Deviation 45.9 (36.4-46.3) fL RDW Coeff of Wil 14.1 (11.5-14.5) % Plt Count 234 (130-400) K/uL MPV 9.6 (9.4-12.4) fL Sodium 136 (136-145) mmol/L Potassium 3.9 (3.5-5.1) mmol/L Chloride 101 (98-107) mmol/L Carbon Dioxide 28 (21-32) mmol/L Anion Gap 7 (3-11) BUN 17 (6-23) mg/dl Creatinine 1.03 (0.6-1.4) mg/dl Est Cr Clr Drug Dosing 148.4 ml/min Est GFR ( Amer) 95.0 ml/min Est GFR (Non-Af Amer) 82.0 ml/min BUN/Creatinine Ratio 16.5 (10-20) Glucose 189 H (70-99(Fasting)) mg/dl POC Glucose 185 H (70-99) mg/dl Calcium 8.8 (8.5-10.1) mg/dl Phosphorus 4.0 (2.5-4.9) mg/dl Magnesium 1.8 (1.7-2.4) mg/dl 06/12/22 Range/Units 20:23 WBC (4.8-10.8) K/ul RBC (4.63-6.08) M/uL Hgb (14.0-18.0) g/dl Hct (40.1-51.0) % MCV (80.0-100.0) fL MCH (25.0-34.0) pg MCHC (32.0-36.0) g/dL RDW Std Deviation (36.4-46.3) fL RDW Coeff of Wil (11.5-14.5) % Plt Count (130-400) K/uL MPV (9.4-12.4) fL Sodium (136-145) mmol/L Potassium (3.5-5.1) mmol/L Chloride (98-107) mmol/L Carbon Dioxide (21-32) mmol/L Anion Gap (3-11) BUN (6-23) mg/dl Creatinine (0.6-1.4) mg/dl Est Cr Clr Drug Dosing ml/min Est GFR ( Amer) ml/min Est GFR (Non-Af Amer) ml/min BUN/Creatinine Ratio (10-20) Glucose (70-99(Fasting)) mg/dl POC Glucose 137 H (70-99) mg/dl Calcium (8.5-10.1) mg/dl Phosphorus (2.5-4.9) mg/dl Magnesium (1.7-2.4) mg/dl PG Care Time/CCT Total # of Minutes Spent Total Time Spent with Patient: Total time spent is greater than 50% in coordination of care (as documented) at patient's floor/unit and/or counseling patient: Coding Level of Care Code 46639 Subseq Hosp Care Lvl 2 Diagnoses CHF (congestive heart failure) I50.9 Rhinovirus B34.8 Hypomagnesemia E83.42 Asthma J45.909 History of deep venous thrombosis Z86.718 Depression F32.9 Hypertension I10 Diabetes type 2, uncontrolled E11.65
[2022-06-13] MEDS: GABAPENTIN 600 MG TAB PO SCH (20:18)
[2022-06-13] MEDS: ROSUVASTATIN CALCIUM 20 MG TAB PO SCH (20:18)
[2022-06-13] MEDS: DOXEPIN HCL 10 MG CAPSULE PO SCH (20:19)
[2022-06-13] MEDS: TOPIRAMATE 25 MG TAB PO SCH (20:20)
[2022-06-13] MEDS: RIVAROXABAN 20 MG TAB PO SCH (20:20)
[2022-06-13] MEDS: ALBUT/IPRATROP 3MG/0.5MG NEB 3 ML VIAL NEB PRN (20:47)
[2022-06-13] MEDS ORDERED: LANTUS PER UNIT CHARGE SQ SCH (21:00)
[2022-06-14] MEDS: FUROSEMIDE 40 MG/4 ML VIAL IV SCH ×3 (00:21→17:38)
[2022-06-14 08:22] LABS: Hemoglobin 11.8 g/dl (14.0-18.0); Mean Corpuscular Hemoglobin 29.4 pg (25.0-34.0); Mean Corpuscular Hgb Conc 32.8 g/dL (32.0-36.0); Mean Corpuscular Volume 89.6 fL (80.0-100.0); Mean Platelet Volume 9.8 fL (9.4-12.4); Platelet Count 244 K/uL (130-400); RDW Coefficient of Variation 13.9 % (11.5-14.5); RDW Standard Deviation 45.4 fL (36.4-46.3); Red Blood Count 4.02 M/uL (4.63-6.08); White Blood Count 8.41 K/ul (4.8-10.8)
[2022-06-14] MEDS: METOPROLOL TARTRATE 25 MG TAB PO SCH ×2 (08:41→21:40)
[2022-06-14] MEDS: FLUoxetine HCL 20 MG CAP PO SCH (08:41)
[2022-06-14] MEDS: MAGNESIUM CHLORIDE W/CALCIUM 64MG DELAYED REL TAB PO SCH (08:42)
[2022-06-14] MEDS: MULTIVITAMIN TAB PO SCH (08:42)
[2022-06-14] MEDS: lisinopril 2.5 MG TAB PO SCH (08:42)
[2022-06-14] MEDS: CHOLECALCIFEROL 5,000 UNITS 125 MCG TAB PO SCH (08:42)
[2022-06-14] MEDS: INSULIN ASPART PER UNIT SC SCH ×4 (08:46→21:54)
[2022-06-14] MEDS: LANTUS PER UNIT CHARGE SQ SCH ×2 (08:47→21:55)
[2022-06-14 09:02] LABS: BUN Creatinine Ratio 17.6 (10-20); Calcium 8.9 mg/dl (8.5-10.1); Creatinine Clr Calc Pharmacy 128.4 ml/min; Est GFR (African American) 79.8 ml/min; Est GFR (Non-African American) 68.8 ml/min; Magnesium 1.9 mg/dl (1.7-2.4); Phosphorus 3.7 mg/dl (2.5-4.9); Potassium 4.1 mmol/L (3.5-5.1)
[2022-06-14] MEDS: PANTOprazole 40 MG TAB PO SCH (09:48)
--- NOTE | 2022-06-14 17:23 | Hospitalist Progress Note ---
Date of Service June 14, 2022 Assessment & Plan (1) CHF (congestive heart failure): Plan: 52yo male with history of asthma presents with progressive dyspnea as well as productive cough, orthopnea, weight gain and edema. Patient reports feeling that he is "full of fluid". Prior cardiac testing revealed normal myocardial perfusion on pharmacologic stress test. Normal Biventricular systolic function with no significant valvular abnormality on echocardiogram 08/17/21. Seen by Cardiology as an outpt on day of admission with these complaints. Found to be hypoxemic with resting saturation of 90% on room air with significant edema in RLE and was subsequently referred to the ER for additional testing and treatment. Presumed Acute on chronic HFpEF Clinically presents as CHF but does lack rales on exam, and with normal BNP may be falsely low in setting of obesity. Normal biventricular function and no valvular heart disease on prior echo. CXR with mild pulm edema, cardiomegaly Patient's body habitus does favor diagnosis of obesity hypoventilation, possible EVITA. Possible PH? Right HF Patient is on Rivaroxaban for history of RLE DVT. Difficult to dose with morbid obesity. His pulmonary viral panel did come back POSITIVE for Rhinovirus which could be contributing greatly to symptoms as well. 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, BPs relatively low and lightheaded today -HOLD further IV lasix util AM to see if can have a daily dose at that time -strict I/Os, daily weights, fluid restrict to 1800 mL/day -follow BMP, Mag, replace lytes as needed -aim for diuresis of -1-2 L daily -BPs now controlled (2) Rhinovirus: Plan: noted with increased sputum production, no fevers, with dyspnea no PNA on CXR cough better with bronchodilators and diuresis supportive care, bronchodilators prn droplet and contact precautions (3) Hypomagnesemia: Plan: replaced with po Mag and improved dc po Mag due to loose stools now follow Mag level in AM (4) Asthma: Plan: No wheezing noted on exam. Patient does report wheezing prior to arrival which improved after nebulized Albuterol. Enterovirus infection possibly contributing as well -Continue DuoNebs and Albuterol PRN -Continue Cetirizine (5) History of deep venous thrombosis: Plan: Patient with history of VTE on Rivaroxaban -chronic DVT on Doppler here in right leg -Continue Rivaroxaban. Consider treatment with Coumadin rather than Rivaroxaban given patient's high BMI-defer to PCP (6) Depression: Plan: Chronic. Stable -Continue Fluoxetine 60mg po qAM -Hydroxyzine PRN (7) Hypertension: Plan: Blood pressure controlled -Continue Metoprolol, lisinopril -Continue to monitor (8) Diabetes type 2, uncontrolled: Plan: Patient with DM. Last EafB0G=6.7 on 08/29/21. He is on 100u of U-500 insulin daily -Pharmacy glycemic management consultation appreciated to assist with insulin management -A1C uncontrolled at 8.9% -Continue Lisinopril 2.5mg po daily Plan DVT proph-Xarelto Dispo-continued stay, but improving, needs 2 step walk test prior to discharge. Possible dc in 1-2 days PT/OT consults ordered Admission and Anticipated Discharge Date Admission Date: June 11, 2022 Subjective Pt felt lightheaded earlier today and BPs 99 systolic. Had 2 episodes of diarrhea today. Is eating his meal when I saw him. Feels albuterol inhaler helped his cough last night a lot. Not SOB much with walking to the BR but doesn't feel he could walk to the parking lot and back (which he then states he couldn't do before this anyway). Tele with NSR rates 60s Review of Systems Review of Systems: All systems reviewed & are unremarkable except as noted in HPI & below Physical Exam Constitutional: WD/WN, vitals as above + obese Eyes: + anicteric sclerae Neck: trachea midline, no thyromegaly Respiratory: normal respiratory effort; no cough and not tachypneic Auscultation: + diminished lung sounds (throughout due to body habitus); no crackles, no rhonchi and no wheezes Cardiovascular: Rate/Rhythm: regular rate and regular rhythm Heart Sounds: no murmur Extremities: + edema (RLE with 2+ pitting woody edema to thigh/improved;LLE BKA) Chest (Breasts): Chest: normal inspection of chest Gastrointestinal (Abdomen): normal bowel sounds, soft, nontender, no hepatosplenomegaly Musculoskeletal: Extremities: + extremities abnormal to inspection (Left BKA), no cyanosis and no clubbing Skin: no rashes, warm and dry Neurologic: moves all extremities and awake; no focal motor deficits Psychiatric: A+Ox3, euthymic affect Results & Data Results & Data ([facility]) Vital Signs (Past 12 Hours) Vital Signs Temp Pulse Resp BP BP Pulse Ox O2 Del Method 06/14/22 15:23 37.1 C 64 20 99/62 L 96 Room Air 06/14/22 11:21 37.1 C 58 L 20 100/66 95 Room Air 06/14/22 08:00 Room Air 06/14/22 07:58 36.6 C 66 20 113/72 94 Room Air PG Care Time/CCT Total # of Minutes Spent Total Time Spent with Patient: Total time spent is greater than 50% in coordination of care (as documented) at patient's floor/unit and/or counseling patient: Coding Level of Care Code 49481 Subseq Hosp Care Lvl 3 Diagnoses CHF (congestive heart failure) I50.9 Rhinovirus B34.8 Hypomagnesemia E83.42 Asthma J45.909 History of deep venous thrombosis Z86.718 Depression F32.9 Hypertension I10 Diabetes type 2, uncontrolled E11.65
[2022-06-14] MEDS: DOXEPIN HCL 10 MG CAPSULE PO SCH (21:39)
[2022-06-14] MEDS: GABAPENTIN 600 MG TAB PO SCH (21:40)
[2022-06-14] MEDS: RIVAROXABAN 20 MG TAB PO SCH (21:41)
[2022-06-14] MEDS: TOPIRAMATE 25 MG TAB PO SCH (21:41)
[2022-06-14] MEDS: ROSUVASTATIN CALCIUM 20 MG TAB PO SCH (21:41)
[2022-06-15 07:35] LABS: BUN Creatinine Ratio 21.2 (10-20); Creatinine Clr Calc Pharmacy 146.7 ml/min; Est GFR (African American) 93.9 ml/min; Potassium 3.8 mmol/L (3.5-5.1)
[2022-06-15] MEDS: CHOLECALCIFEROL 5,000 UNITS 125 MCG TAB PO SCH (07:51)
[2022-06-15] MEDS: METOPROLOL TARTRATE 25 MG TAB PO SCH ×2 (07:51→21:30)
[2022-06-15] MEDS: lisinopril 2.5 MG TAB PO SCH (07:51)
[2022-06-15] MEDS: MULTIVITAMIN TAB PO SCH (07:52)
[2022-06-15] MEDS: PANTOprazole 40 MG TAB PO SCH (07:52)
[2022-06-15] MEDS: FLUoxetine HCL 20 MG CAP PO SCH (07:52)
[2022-06-15] MEDS: INSULIN ASPART PER UNIT SC SCH ×4 (08:26→21:30)
[2022-06-15] MEDS ORDERED: FUROSEMIDE 40 MG/4 ML VIAL IV SCH (09:00)
[2022-06-15] MEDS ORDERED: BUMETANIDE 1 MG TAB PO SCH (09:00)
[2022-06-15] MEDS ORDERED: LANTUS PER UNIT CHARGE SQ SCH (09:00)
[2022-06-15] MEDS: ALBUT/IPRATROP 3MG/0.5MG NEB 3 ML VIAL NEB PRN (11:09)
--- NOTE | 2022-06-15 15:37 | Hospitalist Progress Note ---
Date of Service June 15, 2022 Assessment & Plan (1) CHF (congestive heart failure): Plan: 52yo male with history of asthma presents with progressive dyspnea as well as productive cough, orthopnea, weight gain and edema. Patient reports feeling that he is "full of fluid". Prior cardiac testing revealed normal myocardial perfusion on pharmacologic stress test. Normal Biventricular systolic function with no significant valvular abnormality on echocardiogram 08/17/21. Seen by Cardiology as an outpt on day of admission with these complaints. Found to be hypoxemic with resting saturation of 90% on room air with significant edema in RLE and was subsequently referred to the ER for additional testing and treatment. Presumed Acute on chronic HFpEF Clinically presents as CHF but does lack rales on exam, and with normal BNP may be falsely low in setting of obesity. Normal biventricular function and no valvular heart disease on prior echo. CXR with mild pulm edema, cardiomegaly Patient's body habitus does favor diagnosis of obesity hypoventilation, possible EVITA. Possible PH? Right HF Patient is on Rivaroxaban for history of RLE DVT. Difficult to dose with morbid obesity. His pulmonary viral panel did come back POSITIVE for Rhinovirus which could be contributing greatly to symptoms as well. 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 twice daily -strict I/Os, daily weights, fluid restrict to 1800 mL/day -follow BMP, Mag, replace lytes as needed- -BPs now controlled If tolerating this dose of Bumex and maintaining even or net negative balance by Thursday, can discharge to home on Thursday (2) Rhinovirus: Plan: noted with increased sputum production, no fevers, with dyspnea no PNA on CXR cough better with bronchodilators and diuresis supportive care, bronchodilators prn droplet and contact precautions Having some mild diarrhea which may also have been due to oral magnesium (3) Hypomagnesemia: Plan: replaced with po Mag and normalized dc po Mag due to loose stools (4) Asthma: Plan: No wheezing noted on exam. Patient does report wheezing prior to arrival which improved after nebulized Albuterol. Enterovirus infection possibly contributing as well -Continue DuoNebs and Albuterol PRN -Continue Cetirizine (5) History of deep venous thrombosis: Plan: Patient with history of VTE on Rivaroxaban -chronic DVT on Doppler here in right leg -Continue Rivaroxaban. Consider treatment with Coumadin rather than Rivaroxaban given patient's high BMI-defer to PCP (6) Depression: Plan: Chronic. Stable -Continue Fluoxetine 60mg po qAM -Hydroxyzine PRN (7) Hypertension: Plan: Blood pressure controlled -Continue Metoprolol, lisinopril -Continue to monitor (8) Diabetes type 2, uncontrolled: Plan: Patient with DM. Last PcwQ7G=3.7 on 08/29/21. He is on 100u of U-500 insulin daily With h/o LEFT BKA due to diabetic foot infection/Charcot foot -Pharmacy glycemic management consultation appreciated to assist with insulin management -A1C uncontrolled at 8.9% -Continue Lisinopril 2.5mg po daily Plan DVT proph-Xarelto Dispo-continued stay, but improving, needs 2 step walk test prior to discharge. Possible dc Thursday if continues to improve PT/OT consults ordered and pending Admission and Anticipated Discharge Date Admission Date: June 11, 2022 Subjective Patient reports feeling tired today and had 1 loose stool. Otherwise feels his swelling is down. He is only put out 500 and mils of urine since this morning which is less than previous and switching to oral Bumex. Cough is better with breathing treatments. Is feeling like he is probably can be ready to go home for tomorrow. Telemetry with normal sinus rhythm, rates 50s-60s Review of Systems Review of Systems: All systems reviewed & are unremarkable except as noted in HPI & below Physical Exam Constitutional: WD/WN, vitals as above + obese Eyes: + anicteric sclerae Neck: trachea midline, no thyromegaly Respiratory: normal respiratory effort; no cough and not tachypneic Auscultation: + diminished lung sounds (throughout due to body habitus); no crackles, no rhonchi and no wheezes Cardiovascular: Rate/Rhythm: regular rate and regular rhythm Heart Sounds: no murmur Extremities: + edema (RLE with trace pitting woody edema to thigh/improved;LLE BKA) Chest (Breasts): Chest: normal inspection of chest Gastrointestinal (Abdomen): normal bowel sounds, soft, nontender, no hepatosplenomegaly Musculoskeletal: Extremities: + extremities abnormal to inspection (Left BKA), no cyanosis and no clubbing Skin: no rashes, warm and dry (Dry skin on leg) Neurologic: moves all extremities and awake; no focal motor deficits Psychiatric: A+Ox3, euthymic affect Results & Data Results & Data ([facility]) Vital Signs (Past 12 Hours) Vital Signs Temp Pulse Resp BP BP Pulse Ox O2 Del Method 06/15/22 14:47 37.1 C 62 18 96/62 L 93 Room Air 06/15/22 11:22 36.7 C 58 L 20 105/65 93 Room Air 06/15/22 11:09 64 16 94 Room Air 06/15/22 08:00 Room Air 06/15/22 08:04 36.7 C 63 20 105/65 93 Room Air Laboratory Results 06/15/22 06/15/22 06/15/22 Range/Units 11:39 07:51 06:44 Sodium 135 L (136-145) mmol/L Potassium 3.8 (3.5-5.1) mmol/L Chloride 102 (98-107) mmol/L Carbon Dioxide 28 (21-32) mmol/L Anion Gap 5 (3-11) BUN 22 (6-23) mg/dl Creatinine 1.04 (0.6-1.4) mg/dl Est Cr Clr Drug Dosing 146.7 ml/min Est GFR ( Amer) 93.9 ml/min Est GFR (Non-Af Amer) 81.0 ml/min BUN/Creatinine Ratio 21.2 H (10-20) Glucose 137 H (70-99(Fasting)) mg/dl POC Glucose 164 H 162 H (70-99) mg/dl Calcium 9.0 (8.5-10.1) mg/dl Magnesium 2.0 (1.7-2.4) mg/dl 06/14/22 06/14/22 Range/Units 20:19 16:49 Sodium (136-145) mmol/L Potassium (3.5-5.1) mmol/L Chloride (98-107) mmol/L Carbon Dioxide (21-32) mmol/L Anion Gap (3-11) BUN (6-23) mg/dl Creatinine (0.6-1.4) mg/dl Est Cr Clr Drug Dosing ml/min Est GFR ( Amer) ml/min Est GFR (Non-Af Amer) ml/min BUN/Creatinine Ratio (10-20) Glucose (70-99(Fasting)) mg/dl POC Glucose 163 H 121 H (70-99) mg/dl Calcium (8.5-10.1) mg/dl Magnesium (1.7-2.4) mg/dl PG Care Time/CCT Total # of Minutes Spent Total Time Spent with Patient: Total time spent is greater than 50% in coordination of care (as documented) at patient's floor/unit and/or counseling patient: Coding Level of Care Code 29472 Subseq Hosp Care Lvl 2 Diagnoses CHF (congestive heart failure) I50.9 Rhinovirus B34.8 Hypomagnesemia E83.42 Asthma J45.909 History of deep venous thrombosis Z86.718 Depression F32.9 Hypertension I10 Diabetes type 2, uncontrolled E11.65
[2022-06-15] MEDS: BUMETANIDE 1 MG TAB PO SCH (17:25)
[2022-06-15] MEDS: LANTUS PER UNIT CHARGE SQ SCH (21:19)
[2022-06-15] MEDS: GABAPENTIN 600 MG TAB PO SCH (21:27)
[2022-06-15] MEDS: DOXEPIN HCL 10 MG CAPSULE PO SCH (21:27)
[2022-06-15] MEDS: RIVAROXABAN 20 MG TAB PO SCH (21:28)
[2022-06-15] MEDS: ROSUVASTATIN CALCIUM 20 MG TAB PO SCH (21:28)
[2022-06-15] MEDS: TOPIRAMATE 25 MG TAB PO SCH (21:31)
[2022-06-16 06:56] LABS: BUN Creatinine Ratio 20.2 (10-20); Calcium 8.8 mg/dl (8.5-10.1); Est GFR (African American) 93.9 ml/min; Potassium 3.6 mmol/L (3.5-5.1)
[2022-06-16] MEDS ORDERED: LANTUS PER UNIT CHARGE SQ SCH ×3 (09:00→21:00)
--- NOTE | 2022-06-16 09:17 | XRay Report ---
XR chest 2V PA/lateral HISTORY: Shortness of breath. Congestive heart failure. Follow-up. COMPARISON: Chest 06/11/2022. FINDINGS: No pneumothorax. Continued improvement with near complete resolution of the pulmonary edema . The heart remains mildly enlarged. No significant pleural effusions. No new focal lung consolidatio ns to suggest pneumonia. IMPRESSION: Continued improvement with near complete resolution of the pulmonary edema. ACT 112: Negative or not required by law. Electronically signed by: Tani Pedroza M.D. 06/16/2022 9:15 AM
[2022-06-16] MEDS: BUMETANIDE 1 MG TAB PO SCH (09:26)
[2022-06-16] MEDS: FLUoxetine HCL 20 MG CAP PO SCH (09:26)
[2022-06-16] MEDS: CHOLECALCIFEROL 5,000 UNITS 125 MCG TAB PO SCH (09:26)
[2022-06-16] MEDS: MULTIVITAMIN TAB PO SCH (09:27)
[2022-06-16] MEDS: PANTOprazole 40 MG TAB PO SCH (09:27)
[2022-06-16] MEDS: METOPROLOL TARTRATE 25 MG TAB PO SCH (09:27)
[2022-06-16] MEDS: lisinopril 2.5 MG TAB PO SCH (09:27)
[2022-06-16] MEDS: INSULIN ASPART PER UNIT SC SCH ×2 (09:29→12:35)
--- NOTE | 2022-06-16 12:32 | Pharmacy Report ---
Pharmacy Glycemic Short Note 2 - Date of Service June 16, 2022 - Glycemic Short BSG Results (Last 24 hours): 06/15/22 06/15/22 06/16/22 16:44 20:10 05:37 Glucose 112 H POC Glucose 99 126 H 06/16/22 06/16/22 07:44 12:03 Glucose POC Glucose 121 H 151 H OUTPATIENT ANTIDIABETIC REGIMEN: * U-500 insulin - 100 units TID meals, last dose at 2:23pm on 06/11 * A1c 8.9 06/12/22 ASSESSMENT: 06/16/22 * Patient's BSGs yesterday were [id number] mg/dL. Patient received 153 units of insulin (110 units of basal and 43 units of bolus). * Patient's fasting today is 121 mg/dL. * Concern as patient's fasting decreased by 40 points plus regimen is very basal heavy. Reduce AM basal by 25% to 45 units. Scale for this evening with 20-50% reduction based upon patient's BSGs. * Loosened Novolog slightly as BSGs trended downwards. 06/12 * Patient received total of 190 units of insulin yesterday, of which 105 units were basal insulin * Fasting BSG 189 mg/dL - will adjust evening scale and titrate up ~10-20% on basal * BSGs tend to be higher with lunch and trend down throughout the day, therefore will have tighter coverage with breakfast and looser later in day 06/11 * 52 year old male admitted for dyspnea/asthma, PMH VTE on Xarelto, BMI 56, Type 2 DM on U500 insulin at home * Started basal bolus yesterday, BSGs improved over night and increase with meals today, will tighten CF/CR and increase basal at this time PLAN FOR INPATIENT GLYCEMIC CONTROL: * Hold outpatient U500 insulin * Basal insulin * Lantus SQ BID * 45 units daily in AM * 20-40 units daily in PM * Bolus insulin * NovoLog per scale ACHS or Q6hrs while NPO * Goal Range: Low 110 mg/dL - High 140 mg/dL * Correction Factor: 12 mg/dL/unit (CF of 6 with breakfast only) * Nutritional / Prandial insulin per carb ratio of 1 unit per 4 grams CHO consumed (CR of 3 with breakfast only)
--- NOTE | 2022-06-16 12:33 | Discharge Summary ---
Date of Service June 16, 2022 Admission HPI Per Admitting Provider Wyatt Bejarano is a 52yo male with history of prior DVT, Depression, DM, HLP, HTN, Asthma, venous stasis presenting with progressive SOB. Patient reports 1-2 weeks of progressive dyspnea with minimal exertion, he now becomes short of breath with simply repositioning himself in the hospital bed. He has had cough productive for thick, white sputum as well as wheezing. He has significant orthopnea, worsening LE edema as well as weight gain. He reports his "dry weight" is appx 390# - last weighed this in March 2022 (does not actually correlate with weight we have on record from 04/17/22 which is 448#). Reports he has been having progressive weight gain since that time. He reports some chest tightness and discomfort of the left arm at times. Denies fever, chills, palpitations, nausea, vomiting, dizziness, syncope. He did have some diarrhea several days ago for which he took Immodium - has not had a BM in the last day. He does report consuming a very high salt diet. 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 In the ER patient afebrile, HD stable. He was quite dyspneic but oxygen saturations maintained without supplemental O2 ER Course: Magnesium 2gm, Albuterol 3mL neb, Guaifenesin 600mg, Lasix 80mg IV + 40mg IV Principal Diagnosis Acute on chronic diastolic congestive heart failure, viral syndrome Discharge Exam General-alert and oriented x3, no fevers, no chills. Morbidly obese HEENT-head atraumatic and normocephalic, TMs intact bilaterally, pupils equal and reactive to light, extraocular muscles intact Neck-no lymphadenopathy or thyromegaly, trachea midline Chest-clear to auscultation percussion. No rales wheezing or rhonchi Cardiac-regular rate and rhythm, normal S1 and S2, no murmurs Abdomen-normal bowel sounds, nontender, no hepatosplenomegaly Extremities-chronic venous stasis changes bilateral lower extremities below the knees with chronic edema Neuro-cranial nerves II through XII intact, motor and sensory function within normal limits, strength symmetrical , no focal deficits Psych-normal affect, normal mood Discharge Data Allergies Allergy/AdvReac Type Severity Reaction Status Date / Time clindamycin Allergy Intermediate Hives Verified 06/11/22 21:29 vancomycin AdvReac Intermediate KYE Verified 06/11/22 21:29 SYNDROME piperacillin [From Zosyn] AdvReac Mild skin rash, Verified 06/11/22 21:29 itching, mild tazobactam [From Zosyn] AdvReac Mild skin rash, Verified 06/11/22 21:29 itching, mild Consultations 06/11/22 19:50 ED Decision to Admit Stat Ordered Studies 06/11/22 19:19 US venous doppler LE RT Urgent Hospital Course (1) CHF (congestive heart failure): 52yo male with history of asthma presents with progressive dyspnea as well as productive cough, orthopnea, weight gain and edema. Patient reports feeling that he is "full of fluid". Prior cardiac testing revealed normal myocardial perfusion on pharmacologic stress test. Normal Biventricular systolic function with no significant valvular abnormality on echocardiogram 08/17/21. Seen by Cardiology as an outpt on day of admission with these complaints. Found to be hypoxemic with resting saturation of 90% on room air with significant edema in RLE and was subsequently referred to the ER for additional testing and treatment. Acute on chronic HFpEF: Resolved. Chest x-ray today, June 16, looks better. The patient is on room air and passed the two-step evaluation. Lung sounds are clear. He will go home today, June 16, on Bumex therapy. Treated with IV lasix and convert to Bumex 1 mg p.o. twice daily (2) Rhinovirus: ild symptoms. No treatment warranted at this time. (3) Hypomagnesemia: Corrected (4) Asthma: No wheezing . Stable. Med management (5) History of deep venous thrombosis: Patient with history of VTE on Rivaroxaban -chronic DVT on Doppler in right leg -Continue Rivaroxaban. (6) Depression: Chronic. Stable -Continue Fluoxetine 60mg po qAM -Hydroxyzine PRN (7) Hypertension: Blood pressure controlled -Continue Metoprolol, lisinopril (8) Diabetes type 2, uncontrolled: ADA diet. Insulin therapy. Sliding scale coverage as needed . With h/o LEFT BKA due to diabetic foot infection/Charcot foot Plan DVT proph-Xarelto Dispo-discharged home today, June 16 . He does not need home oxygen Total Time Total Time Spent Total Time Spent (In Minutes): 35 minutes Discharge Plan Discharge Items Patient Disposition: Home - Self-Care Reason For Visit: SOB Discharge Diagnosis: Acute on chronic diastolic congestive heart failure, viral syndrome Activity: Resume your previous activity Non-emergency contact: Primary Care Provider Call non-emergency contact if: you have any medication questions Follow-up/Referrals: Mike Isidro MD [Primary Care Provider] - 06/27/22 3:00 pm Diet: Carb Consistent or DM2 Addtl Attending Provider Instructions: Bumex (bumetanide) replaces Lasix (furosemide) Pending Studies at Discharge: No Stand-Alone Forms: My [employer] Pay, Smoking Cessation Medications and DC Order Prescriptions: New bumetanide 1 mg Tablet 1 mg PO [id number] Qty: 60 0RF Continued gabapentin 600 mg tablet 600 mg PO HS (DME) pen needle, diabetic [Comfort EZ Pen Atco] 29 gauge x 1/2" needle See Rx Instructions .ROUTE .MEDSUPPLY Qty: 100 5RF Rx Instructions: As directed- use five times daily (DME) Dexcom G6 Blood Bank Laboratory Technician Misc See Rx Instructions .Route Qty: 1 0RF Rx Instructions: Use for continuous blood glucose monitoring (DME) Dexcom G6 Sensor Device See Rx Instructions .Route Qty: 3 11RF Rx Instructions: Use for continuous blood glucose monitoring. Replace sensor every 10 days (DME) Dexcom G6 Transmitter Device See Rx Instructions .Route Qty: 1 3RF Rx Instructions: Use for continuous blood glucose monitoring. Replace transmitter every 90 days rivaroxaban 20 mg tablet 20 mg PO QPM Qty: 90 3RF Rx Instructions: must administer with evening meal topiramate 25 mg tablet 25 mg PO HS Qty: 60 0RF (DME) blood sugar diagnostic Strip See Rx Instructions .ROUTE .MEDSUPPLY Qty: 100 5RF Rx Instructions: As directed to test blood sugar 4 times daily rosuvastatin [Crestor] 20 mg tablet 20 mg PO HS Qty: 90 3RF Rx Instructions: for cholesterol fluoxetine 60 mg tablet 60 mg PO QAM Qty: 90 3RF cholecalciferol (vitamin D3) [Vitamin D3] 125 mcg (5,000 unit) tablet 5,000 unit PO QAM Qty: 90 3RF doxepin 10 mg capsule 10 mg PO HS Qty: 30 2RF Rx Instructions: 10 mg PO at bedtime; lisinopril 2.5 mg tablet 2.5 mg PO QAM Qty: 90 1RF multivitamin Tablet 1 tab PO QAM pantoprazole 40 mg tablet,delayed release (DR/EC) 40 mg PO QAM hydroxyzine HCl 25 mg tablet 25 mg PO DAILY PRN (Reason: Anxiety) Rx Instructions: 25 mg PO daily as needed PRN; albuterol sulfate [Ventolin HFA] 90 mcg/actuation HFA aerosol inhaler 2 puff INHALATION Q6H PRN (Reason: Shortness Of Breath Or Wheezing) Qty: 18 3RF cetirizine 10 mg tablet 10 mg PO QAM metoprolol tartrate 50 mg tablet 50 mg PO QAM insulin regular hum U-500 conc 500 unit/mL (3 mL) insulin pen 100 unit subcut AC MDD 300 units a day Rx Instructions: 100 units of u 500 before breakfast, lunch and dinner. Up to a total daily dose of 300 units a day Discontinued furosemide 40 mg tablet 40 mg PO BID Qty: 180 3RF Discharge Orders: Discharge Order (Routine); Ordered 06/16/22 Ordered By: Paulo Mauro Admission Data Admit Date/Time: 06/11/22 20:49 Attending Provider: Paulo Mauro Admit Provider: Apolonia Baxter Primary Care Provider: Mike Isidro Other Providers: Apolonia Baxter ; [facility] Coding Level of Care Code D/C DAY MANAGEMENT >30 MINS Diagnoses CHF (congestive heart failure) I50.9 Rhinovirus B34.8 Hypomagnesemia E83.42 Asthma J45.909 History of deep venous thrombosis Z86.718 Depression F32.9 Hypertension I10 Diabetes type 2, uncontrolled E11.65
== END 2022-06-16 15:05 | disposition home health service (06) | DRG 291 ==
LOC: ED 18:09 → 2N 20:49 → SUATTDRO 20:49 → 2N 22:26

== ENCOUNTER 2022-09-10 04:21 | Inpatient (IN) ==
--- NOTE | 2022-09-10 04:35 | Emergency Department Note ---
Impression & Plan Cellulitis ADMIT ED Provider Note HPI: The patient is a 52-year-old gentleman with history of morbid obesity, diabetes, CHF, presents emergency department chief complaint of right lower extremity swelling and pain. Patient states is been worsening over the past 2 to 3 days. Patient states he does have a history of DVT and is currently anticoagulated on Xarelto. Patient states that over the past several days he is also had some chills, generalized weakness, states he has had a cough and subjective fevers. On arrival here to the ED the patient is hemodynamically stable, he is saturating well on room air, he is in no acute distress on my initial evaluation ROS: -General: Generalized weakness, chills, subjective fevers -MSK: Right lower extremity swelling/pain *10 point review systems was conducted and is otherwise negative unless stated above *Outpatient medications and allergy history reviewed PE: General: Alert, morbidly obese HEENT: Normocephalic, trachea midline Eyes: Extraocular eye movement is intact, no scleral erythema Pulmonary: Clear to auscultation bilaterally, no wheezing Cardio: Regular rate and rhythm GI: Abdomen is soft, nontender : No suprapubic tenderness MSK: Status post left-sided BKA, right lower extremity is moderately swollen and edematous without any skin peeling or blister formation, there is moderate erythema that is not circumferential mostly to the posterior aspect of the right lower extremity below the knee Skin: Erythematous changes to the posterior right lower extremity as noted above, there is no skin peeling or crepitus to palpation Neuro: Alert, no focal deficits Psychiatric: Cooperative security monitor: - An order was placed for continuous cardiac monitoring - Patient was noted to be in sinus rhythm with a rate of 109 EKG: Rate: 106 Rhythm: Sinus tachycardia Intervals: Within normal limits ST changes: No ST elevation Time: 0449 Interventions provided in ED: -IV cefepime, IV daptomycin, IV morphine, IV fluid bolus US VENOUS RIGHT LOWER EXTREMITY: Evaluation limited by patient body habitus and soft tissue edema but there is no evidence of DVT in the right lower extremity. Impression: No evidence of DVT. Medical Decision Making: Patient presented to the emergency department generalized weakness, subjective fevers, right lower extremity pain and swelling. IV was established, lab work obtained, patient was placed on security monitor. Lab work shows evidence of leukocytosis greater than 15,000, blood cultures were drawn in the ED, lab work otherwise shows hyperglycemia without DKA, stable hemoglobin, no acute kidney injury. Chest x-ray shows a pattern of mild pulmonary edema, patient is saturating well on room air, lactic acid is elevated 2.3, procalcitonin is also elevated, ultrasound imaging of the right lower extremity does not show any evidence of DVT. At this time I do have concern for developing systemic infection likely secondary to right lower extremity cellulitis, COVID-19 testing is negative here in the ED. Patient was given a dose of morphine for his right lower extremity pain. Troponin is noted to be mildly elevated above baseline of 46, EKG does not show any acute ischemic changes, patient does complain of some intermittent shortness of breath but denies any chest pain. Low suspicion for ACS at this point. Patient was given a 500 cc bolus of IV fluid and on further secondary to hemodynamic stability and concern for fluid overload with possible pulmonary edema on chest x-ray. He was given IV daptomycin and IV cefepime for cellulitis as he is noted to have multiple antibiotic allergies including to clindamycin and vancomycin as well as Zosyn. Given the patient's fever here in the emergency department to 38 C, mild tachycardia, elevated lactic acid, and elevated procalcitonin, I do have concern for developing systemic infection. Blood cultures were drawn in the ED, patient was initiated on IV antibiotics, I do feel that he should be admitted given his comorbidities and objective findings on lab work as well as abnormal vital signs. [facility], patient is in agreement to the above plan and is in agreement for admission. Patient was placed for admission in stable condition Diagnosis: 1. Right lower extremity cellulitis, acute 2. Leukocytosis 3. Lactic acidosis 4. Elevated procalcitonin 5. Pulmonary edema, mild 6. Fever 7. Morbid obesity 8. Elevated troponin Disposition: Admission Alden Pedroza DO Emergency Medicine Past Med/Surg History Medical History Below-knee amputation of left lower extremity CHF (congestive heart failure) Depression Diabetes type 2, uncontrolled Diabetic peripheral neuropathy associated with type 2 diabetes mellitus DVT (deep venous thrombosis) (08/16/13) Dysesthesia Dyslipidemia Hip pain History of acute renal failure History of cellulitis History of GI bleed (~07/2021) Hx of renal calculi Hypertension NSTEMI (non-ST elevated myocardial infarction) Personal history of diabetic foot ulcer Venous stasis of both lower extremities Venous ulcer of right leg Vitamin D deficiency Surgical History History of esophagogastroduodenoscopy (EGD) History of repair of right rotator cuff Hx laparoscopic cholecystectomy Hx of amputation below knee Hx of colonoscopy Hx of nephrostomy S/P hernia repair S/P PICC central line placement Family History Aunt No problems noted. Grandmother (Maternal) Throat cancer Myocardial infarction Grandfather (Maternal) Myocardial infarction Other Coronary heart disease Diabetes No pertinent family history Denies family history of Ovarian cancer Prostate cancer Breast cancer Colorectal cancer Social History Smoking Status: Never smoker Tobacco Type: Cigarettes Cigarettes Per Day: 1 Pack; Second Hand Exposure: No; Hx Alcohol Use: No Hx Substance Use: No Preferred Language: Macanese Communication Ability: Effective Director Of Physician Practices Required: No Beliefs That Will Affect Care: None marital status: Current Living Situation: Spouse Current Living Situation Comment: Home current occupational status: disabled How many Children do You have: 2 other: caregiver, 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 Feels Safe at Home: Yes Physical Activity Frequency: Does not Exercise Seatbelt Use: always Sunscreen Use: Yes Assistive Devices: Walker Allergies Allergies Allergy/AdvReac Type Severity Reaction Status Date / Time clindamycin Allergy Intermediate Hives Verified 07/29/22 10:39 vancomycin AdvReac Intermediate KYE Verified 07/29/22 10:39 SYNDROME piperacillin [From Zosyn] AdvReac Mild skin rash, Verified 07/29/22 10:39 itching, mild tazobactam [From Zosyn] AdvReac Mild skin rash, Verified 07/29/22 10:39 itching, mild Home Meds Home Medications Medication Instructions Recorded Confirmed multivitamin 1 tab PO QAM 08/15/21 07/29/22 metoprolol tartrate 50 mg tablet 50 mg PO QAM 06/11/22 07/29/22 insulin regular hum U-500 conc 500 80 unit subcut AC 08/07/22 unit/mL(3 mL) subcut pen Previous Rx's Medication Instructions Recorded pen needle, diabetic 29 gauge x #100 ea 03/14/20 1/2" (Comfort EZ Pen [place]) topiramate 25 mg tablet 25 mg PO HS #60 tabs 09/19/21 blood sugar diagnostic #100 ea 10/04/21 rosuvastatin 20 mg tablet (Crestor) 20 mg PO HS #90 tabs 01/16/22 cholecalciferol (vitamin D3) 125 5,000 unit PO QAM #90 tabs 02/18/22 mcg (5,000 unit) tablet (Vitamin D3) fluoxetine 60 mg tablet 60 mg PO QAM #90 tabs 02/18/22 lisinopril 2.5 mg tablet 2.5 mg PO QAM #90 tabs 04/01/22 cholestyramine (with sugar) 4 gram 4 g PO BID bile salt diarrhea #60 07/25/22 powder for susp in a packet ea Dexcom G6 Forming Acid Dumper (blood-glucose #1 ea 08/05/22 meter,continuous) Dexcom G6 Sensor (blood-glucose #3 ea 08/05/22 sensor) Dexcom G6 Transmitter #1 ea 08/05/22 (blood-glucose transmitter) tirzepatide 5 mg/0.5 mL 5 mg (0.5 mL) subcut Q7D #2 mL 08/07/22 subcutaneous pen injector bumetanide 1 mg tablet 4 mg PO BID #180 tabs 08/25/22 albuterol sulfate 90 mcg/actuation 2 puff inhalation Q6H PRN 09/03/22 aerosol inhaler (Ventolin HFA) Shortness Of Breath Or Wheezing #18 grams cetirizine 10 mg tablet 10 mg PO QAM #90 tabs 09/03/22 doxepin 10 mg capsule 10 mg PO HS #90 caps 09/03/22 gabapentin 600 mg tablet 600 mg PO HS #90 tabs 09/03/22 hydroxyzine HCl 25 mg tablet 25 mg PO DAILY PRN Anxiety #30 tabs 09/03/22 rivaroxaban 20 mg tablet 20 mg PO QPM #90 tabs 09/03/22 Results & Data (ED) Vital Signs Vital Signs - 24 hr 09/10/22 04:28 09/10/22 04:41 09/10/22 05:00 Temperature 38 C H Temperature Source Oral Pulse Rate 119 H Pulse Rate [Apical] 122 H Pulse Rhythm Regular Pulse Rhythm [Apical] Regular Pulse Strength Normal Pulse Strength [Apical] Normal Respiratory Rate 23 Respiratory Effort / Characteristics Non-Labored Non-Labored Respiratory Depth Normal Normal Respiratory Pattern Regular Regular Blood Pressure 163/83 H Blood Pressure [Right Arm] 122/92 Blood Pressure Mean 109 Blood Pressure Mean [Right Arm] 102 Blood Pressure Position Sitting Blood Pressure Position [Right Arm] Lying Pulse Oximetry 93 93 92 Oxygen Delivery Method Room Air Room Air Room Air Sepsis Recent Fever Within 48 Hours Yes Sepsis New/Unexplained Change in Mental Status No Sepsis Action Taken by Nursing No Action Required Laboratory Data Result diagrams: 09/10/22 04:35 09/10/22 04:35 Lab Results 09/10/22 09/10/22 09/10/22 Range/Units 04:35 04:35 04:35 WBC 15.65 H (4.8-10.8) K/ul RBC 4.46 L (4.63-6.08) M/uL Hgb 13.3 L (14.0-18.0) g/dl Hct 38.7 L (40.1-51.0) % MCV 86.8 (80.0-100.0) fL MCH 29.8 (25.0-34.0) pg MCHC 34.4 (32.0-36.0) g/dL RDW Std Deviation 44.3 (36.4-46.3) fL RDW Coeff of Wil 14.0 (11.5-14.5) % Plt Count 196 (130-400) K/uL MPV 9.7 (9.4-12.4) fL Immature Gran % (Auto) 0.4 % Neut % (Auto) 89.1 % Lymph % (Auto) 4.3 % [place] % (Auto) 4.1 % Eos % (Auto) 1.8 % Baso % (Auto) 0.3 % Neut # (Auto) 13.96 H (1.4-6.5) K/uL Lymph # (Auto) 0.67 L (1.2-3.4) K/uL [place] # (Auto) 0.64 (0.24-0.82) K/uL Eos # (Auto) 0.28 (0-0.50) K/uL Baso # (Auto) 0.04 (0-0.2) K/uL Immature Gran # (Auto) 0.06 H (0.00-0.02) K/uL Sodium 135 L (136-145) mmol/L Potassium 3.7 (3.5-5.1) mmol/L Chloride 102 (98-107) mmol/L Carbon Dioxide 24 (21-32) mmol/L Anion Gap 9 (3-11) BUN 18 (6-23) mg/dl Creatinine 1.09 (0.6-1.4) mg/dl Est Cr Clr Drug Dosing 145.4 ml/min Est GFR ( Amer) 88.7 ml/min Est GFR (Non-Af Amer) 76.5 ml/min BUN/Creatinine Ratio 16.5 (10-20) Glucose 250 H (70-99(Fasting)) mg/dl Lactate (0.4-2.0) mmol/L Calcium 9.2 (8.5-10.1) mg/dl Total Bilirubin 1.1 H (0.2-1.0) mg/dl AST 17 (13-39) U/L ALT 14 (7-52) U/L Alkaline Phosphatase 71 (34-104) U/L Troponin I High Sens 46.4 H D (0-20) pg/ml B-Natriuretic Peptide 21 (0-100) pg/ml Total Protein 7.3 (6.0-8.3) gm/dl Albumin 3.8 (3.4-5.0) gm/dl Globulin 3.5 (2.5-4.0) gm/dl Albumin/Globulin Ratio 1.1 (0.9-2) Lipase 19 (11-82) U/L Procalcitonin (0-0.5) ng/ml SARS-CoV-2 (PCR) (Negative) Influenza Type A (PCR) (Neg) Influenza Type B (PCR) (Neg) RSV (RT-PCR) (Neg) 09/10/22 09/10/22 09/10/22 Range/Units 04:35 04:35 04:39 WBC (4.8-10.8) K/ul RBC (4.63-6.08) M/uL Hgb (14.0-18.0) g/dl Hct (40.1-51.0) % MCV (80.0-100.0) fL MCH (25.0-34.0) pg MCHC (32.0-36.0) g/dL RDW Std Deviation (36.4-46.3) fL RDW Coeff of Wil (11.5-14.5) % Plt Count (130-400) K/uL MPV (9.4-12.4) fL Immature Gran % (Auto) % Neut % (Auto) % Lymph % (Auto) % [place] % (Auto) % Eos % (Auto) % Baso % (Auto) % Neut # (Auto) (1.4-6.5) K/uL Lymph # (Auto) (1.2-3.4) K/uL [place] # (Auto) (0.24-0.82) K/uL Eos # (Auto) (0-0.50) K/uL Baso # (Auto) (0-0.2) K/uL Immature Gran # (Auto) (0.00-0.02) K/uL Sodium (136-145) mmol/L Potassium (3.5-5.1) mmol/L Chloride (98-107) mmol/L Carbon Dioxide (21-32) mmol/L Anion Gap (3-11) BUN (6-23) mg/dl Creatinine (0.6-1.4) mg/dl Est Cr Clr Drug Dosing ml/min Est GFR ( Amer) ml/min Est GFR (Non-Af Amer) ml/min BUN/Creatinine Ratio (10-20) Glucose (70-99(Fasting)) mg/dl Lactate 2.3 H* (0.4-2.0) mmol/L Calcium (8.5-10.1) mg/dl Total Bilirubin (0.2-1.0) mg/dl AST (13-39) U/L ALT (7-52) U/L Alkaline Phosphatase (34-104) U/L Troponin I High Sens (0-20) pg/ml B-Natriuretic Peptide (0-100) pg/ml Total Protein (6.0-8.3) gm/dl Albumin (3.4-5.0) gm/dl Globulin (2.5-4.0) gm/dl Albumin/Globulin Ratio (0.9-2) Lipase (11-82) U/L Procalcitonin 1.11 H (0-0.5) ng/ml SARS-CoV-2 (PCR) NEGATIVE (Negative) Influenza Type A (PCR) Negative (Neg) Influenza Type B (PCR) Negative (Neg) RSV (RT-PCR) Negative (Neg) Administered Medications Discontinued Medications Vancomycin HCl 2,750 mg/ (Sodium Chloride) 555 mls @ 200 mls/hr IV NOW ONE Stop: 09/10/22 08:09 Last Admin: 09/10/22 05:48 Dose: Not Given Documented By: DORON Cefepime HCl (Maxipime) 2,000 mg in 20 mls @ 5 mls/min IV NOW STA; Protocol Stop: 09/10/22 05:17 Last Admin: 09/10/22 05:42 Dose: 5 mls/min Documented By: DORON Daptomycin 800 mg/ Syringe 16 mls @ 8 mls/min IV ONE ONE; Protocol Stop: 09/10/22 05:44 Last Admin: 09/10/22 06:08 Dose: 8 mls/min Documented By: DORON Morphine Sulfate (Morphine Sulfate 4 Mg/Ml 1 Ml Carp\\Vial) 4 mg IV NOW STA Stop: 09/10/22 05:51 Last Admin: 09/10/22 06:08 Dose: 4 mg Documented By: DORON Discharge Plan Visit Data Chief Complaint: Swelling/Edema to Extremity Stated Complaint: Calf Pain, Edema, SOB ED Provider: Alden Pedroza Discharge Problem: Cellulitis Forms Stand Alone Forms: [facility] Prescriptions Prescriptions: No Action (DME) pen needle, diabetic [Comfort EZ Pen [place]] 29 gauge x 1/2" needle See Rx Instructions .ROUTE .MEDSUPPLY Qty: 100 5RF Rx Instructions: As directed- use five times daily topiramate 25 mg tablet 25 mg PO HS Qty: 60 0RF (DME) blood sugar diagnostic Strip See Rx Instructions .ROUTE .MEDSUPPLY Qty: 100 5RF Rx Instructions: As directed to test blood sugar 4 times daily rosuvastatin [Crestor] 20 mg tablet 20 mg PO HS Qty: 90 3RF Rx Instructions: for cholesterol fluoxetine 60 mg tablet 60 mg PO QAM Qty: 90 3RF cholecalciferol (vitamin D3) [Vitamin D3] 125 mcg (5,000 unit) tablet 5,000 unit PO QAM Qty: 90 3RF lisinopril 2.5 mg tablet 2.5 mg PO QAM Qty: 90 1RF (DME) Dexcom G6 Forming Acid Dumper Misc See Rx Instructions .Route Qty: 1 0RF Rx Instructions: Use for continuous blood glucose monitoring (DME) Dexcom G6 Sensor Device See Rx Instructions .Route Qty: 3 11RF Rx Instructions: Use for continuous blood glucose monitoring. Replace sensor every 10 days (DME) Dexcom G6 Transmitter Device See Rx Instructions .Route Qty: 1 3RF Rx Instructions: Use for continuous blood glucose monitoring. Replace transmitter every 90 days Mounjaro 5 mg/0.5 mL pen injector 5 mg subcut Q7D Qty: 2 0RF Rx Instructions: Inject 1 syringe under the skin once a week for 4 weeks then increase to 7.5 mg weekly insulin regular hum U-500 conc 500 unit/mL (3 mL) insulin pen 80 unit subcut AC MDD 300 units a day Rx Instructions: 100 units of u 500 before breakfast, lunch and dinner. Up to a total daily dose of 240 units a day bumetanide 1 mg tablet 4 mg PO BID Qty: 180 1RF cetirizine 10 mg tablet 10 mg PO QAM Qty: 90 1RF gabapentin 600 mg tablet 600 mg PO HS Qty: 90 1RF hydroxyzine HCl 25 mg tablet 25 mg PO DAILY PRN (Reason: Anxiety) Qty: 30 5RF Rx Instructions: 25 mg PO daily as needed PRN; rivaroxaban 20 mg tablet 20 mg PO QPM Qty: 90 1RF Rx Instructions: must administer with evening meal doxepin 10 mg capsule 10 mg PO HS Qty: 90 1RF Rx Instructions: 10 mg PO at bedtime; albuterol sulfate [Ventolin HFA] 90 mcg/actuation HFA aerosol inhaler 2 puff INHALATION Q6H PRN (Reason: Shortness Of Breath Or Wheezing) Qty: 18 3RF multivitamin Tablet 1 tab PO QAM cholestyramine (with sugar) 4 gram powder in packet 4 g PO BID Qty: 60 3RF Rx Instructions: administer w/meal; avoid other meds within 1hr before or 4-6hr after dose metoprolol tartrate 50 mg tablet 50 mg PO QAM Referrals Referrals: ProMike MD [Primary Care Provider] - : Cellulitis Qualifiers: Site of cellulitis: extremity Site of cellulitis of extremity: lower extremity Laterality: right Qualified Code(s): L03.115 - Cellulitis of right lower limb
[2022-09-10 04:49] LABS: Basophils # (auto) 0.04 K/uL (0-0.2); Basophils % (auto) 0.3 %; Eosinophils # (auto) 0.28 K/uL (0-0.50); Eosinophils % (auto) 1.8 %; Hematocrit (blood only) 38.7 % (40.1-51.0); Hemoglobin 13.3 g/dl (14.0-18.0); Immature Granulocytes # (auto) 0.06 K/uL (0.00-0.02); Immature Granulocytes % (auto) 0.4 %; Lymphocytes # (auto) 0.67 K/uL (1.2-3.4); Lymphocytes % (auto) 4.3 %; Mean Corpuscular Hemoglobin 29.8 pg (25.0-34.0); Mean Corpuscular Hgb Conc 34.4 g/dL (32.0-36.0); Mean Corpuscular Volume 86.8 fL (80.0-100.0); Mean Platelet Volume 9.7 fL (9.4-12.4); Monocytes # (auto) 0.64 K/uL (0.24-0.82); Monocytes % (auto) 4.1 %; Neutrophils # (auto) 13.96 K/uL (1.4-6.5); Neutrophils % (auto) 89.1 %; Platelet Count 196 K/uL (130-400); RDW Standard Deviation 44.3 fL (36.4-46.3); Red Blood Count 4.46 M/uL (4.63-6.08); White Blood Count 15.65 K/ul (4.8-10.8)
[2022-09-10 05:12] LABS: Albumin Globulin Ratio 1.1 (0.9-2); Albumin Level 3.8 gm/dl (3.4-5.0); BUN Creatinine Ratio 16.5 (10-20); Bilirubin,Total 1.1 mg/dl (0.2-1.0); Calcium 9.2 mg/dl (8.5-10.1); Creatinine Clr Calc Pharmacy 145.4 ml/min; Est GFR (African American) 88.7 ml/min; Est GFR (Non-African American) 76.5 ml/min; Globulin 3.5 gm/dl (2.5-4.0); Potassium 3.7 mmol/L (3.5-5.1); Total Protein 7.3 gm/dl (6.0-8.3)
[2022-09-10 05:14] LABS: Troponin I High Sensitivity 46.4 pg/ml (0-20)
[2022-09-10] MEDS ORDERED: VANCOMYCIN CONSULT ACTIVE PRN (05:14)
[2022-09-10] MEDS ORDERED: VANCOMYCIN HCL 2,750 MG in SODIUM CHLORIDE 0.9% 500 ML IV ONE (05:14)
[2022-09-10] MEDS ORDERED: CEFEPIME 2,000 MG/20 ML VIAL IV STA (05:14)
[2022-09-10 05:25] LABS: Influenza A virus by PCR Negative (Neg); Influenza B virus by PCR Negative (Neg); RSV by PCR Negative (Neg); SARS CoV2 RNA(COVID-19)Cepheid NEGATIVE (Negative)
[2022-09-10] MEDS ORDERED: DAPTOmycin 800 MG in SYRINGE 0 ML IV ONE (05:43)
[2022-09-10] MEDS ORDERED: MoRPHine SULFATE 4 MG/ML 1 ML CARP\\VIAL IV STA ×2 (05:50→11:14)
[2022-09-10] MEDS ORDERED: SODIUM CHLORIDE 0.9% 1000ML 500 ML IV ONE (06:19)
--- NOTE | 2022-09-10 06:26 | Ultrasound Report ---
US venous doppler LE RT HISTORY: 52 years-old Male swelling, eval for dvt acute pain and swelling of the right lower leg COMPARISON: 06/11/2022 TECHNIQUE: Multiple real-time sonographic images of the right lower extremity deep venous structures were obtained assessing grayscale appearance, color and spectral flow. FINDINGS: Normal flow, compressibility, phasicity and augmentation. Limited exam secondary to patient body habi tus. There is limited visualization of the right lower extremity deep venous structures, notably the superficial femoral vein and the calf veins. Right inguinal chain lymph nodes measure up to 4.7 cm. S ubcutaneous edema. IMPRESSION: Limited exam as above. No sonographic evidence of deep venous thrombosis. ACT 112: Negative or not required by law. The above report was generated using voice recognition software. It may contain grammatical, syntax o r spelling errors. Electronically signed by: Jamey Dent M.D. 09/10/2022 6:23 AM
--- NOTE | 2022-09-10 06:27 | XRay Report ---
XR chest 1V portable HISTORY: 52 years-old Male Chest Pain . Acute shortness of breath COMPARISON: Chest radiographs 06/16/2022 TECHNIQUE: AP view of the chest FINDINGS: Cardiac silhouette is enlarged. Mild pulmonary vascular congestion. No pneumothorax or pleural effusi on. Mild bibasilar opacities. Bones appear grossly intact. IMPRESSION: 1. Cardiomegaly with pulmonary vascular congestion. 2. Mild bibasilar opacities may be secondary to summation density/atelectasis. ACT 112: Negative or not required by law. The above report was generated using voice recognition software. It may contain grammatical, syntax o r spelling errors. Electronically signed by: Jamey Dent M.D. 09/10/2022 6:26 AM
--- NOTE | 2022-09-10 06:44 | History & Physical Report ---
Date of Service September 10, 2022 Assessment & Plan (1) Cellulitis: Plan: Cellulitis of right lower extremity secondary to fluid leakage- Continue daptomycin IV and cefepime IV as begun in ED Needs adequate diuresis for healing (2) Volume overload: Plan: Volume overload/lymphedema/CHF/hypertension- Change Bumex 4 mg p.o. twice daily to 4 mg IV twice daily, with first dose now Follow serial BMP and magnesium levels (3) Lymphedema: (4) CHF (congestive heart failure): (5) Elevated troponin: Plan: The patient will be admitted to telemetry for serial cardiac enzymes, serial EKG's, cardiac rhythm monitoring Troponin 46.4 upon admission with range 19-30.3 Differentiate between supply demand mismatch versus direct cardiac event Continue metoprolol tartrate 50 mg every morning and lisinopril 2.5 mg every morning (6) Hypertension: (7) Dyslipidemia: Plan: Continue rosuvastatin 20 mg daily (8) Diabetes type 2, uncontrolled: Plan: Continue regular insulin decreased from 80 to 40 units subcu AC Placed on Accu-Cheks with NovoLog coverage SSI (9) Diabetic peripheral neuropathy associated with type 2 diabetes mellitus: Plan: Continue topiramate and gabapentin (10) Depression: Plan: Continue doxepin, fluoxetine, gabapentin and hydroxyzine History of Present Illness Chief Complaint: The patient presents to the emergency department with complaint of cute onset of right lower extremity pain, swelling, redness and fluid leakage that began around midnight this evening Primary Care Provider: Mike Isidro MD The patient is a 52-year-old male with a past medical history including chronic lymphedema, CHF, asthma, chronic anticoagulation for DVT, venous stasis ulcers, metabolic syndrome, morbid obesity with BMI 50-59.9, duodenal ulcer, left lower extremity BKA, depression, hypertension, dyslipidemia, diabetic foot ulcer and diabetic peripheral neuropathy. He presents with symptoms as noted above. He reports in general feeling weak and fatigued. Allergies Allergy/AdvReac Type Severity Reaction Status Date / Time clindamycin Allergy Intermediate Hives Verified 07/29/22 10:39 vancomycin AdvReac Intermediate KYE Verified 07/29/22 10:39 SYNDROME piperacillin [From Zosyn] AdvReac Mild skin rash, Verified 07/29/22 10:39 itching, mild tazobactam [From Zosyn] AdvReac Mild skin rash, Verified 07/29/22 10:39 itching, mild Home Medications Medication Instructions Recorded Confirmed Type pen needle, diabetic 29 gauge x #100 ea 03/14/20 07/29/22 Rx 1/2" (Comfort EZ [place]) multivitamin 1 tab PO QAM 08/15/21 07/29/22 History topiramate 25 mg tablet 25 mg PO HS #60 tabs 09/19/21 07/29/22 Rx blood sugar diagnostic #100 ea 10/04/21 07/29/22 Rx rosuvastatin 20 mg tablet (Crestor) 20 mg PO HS #90 tabs 01/16/22 07/29/22 Rx cholecalciferol (vitamin D3) 125 5,000 unit PO QAM #90 tabs 02/18/22 07/29/22 Rx mcg (5,000 unit) tablet (Vitamin D3) fluoxetine 60 mg tablet 60 mg PO QAM #90 tabs 02/18/22 07/29/22 Rx lisinopril 2.5 mg tablet 2.5 mg PO QAM #90 tabs 04/01/22 07/29/22 Rx metoprolol tartrate 50 mg tablet 50 mg PO QAM 06/11/22 07/29/22 History cholestyramine (with sugar) 4 gram 4 g PO BID bile salt diarrhea #60 07/25/22 07/29/22 Rx powder for susp in a packet ea Dexcom G6 Pigment Weigher (blood-glucose #1 ea 08/05/22 Rx meter,continuous) Dexcom G6 Sensor (blood-glucose #3 ea 08/05/22 Rx sensor) Dexcom G6 Transmitter #1 ea 08/05/22 Rx (blood-glucose transmitter) insulin regular hum U-500 conc 500 80 unit subcut AC 08/07/22 History unit/mL(3 mL) subcut pen tirzepatide 5 mg/0.5 mL 5 mg (0.5 mL) subcut Q7D #2 mL 08/07/22 Rx subcutaneous pen injector bumetanide 1 mg tablet 4 mg PO BID #180 tabs 08/25/22 Rx albuterol sulfate 90 mcg/actuation 2 puff inhalation Q6H PRN 09/03/22 Rx aerosol inhaler (Ventolin HFA) Shortness Of Breath Or Wheezing #18 grams cetirizine 10 mg tablet 10 mg PO QAM #90 tabs 09/03/22 Rx doxepin 10 mg capsule 10 mg PO HS #90 caps 09/03/22 Rx gabapentin 600 mg tablet 600 mg PO HS #90 tabs 09/03/22 Rx hydroxyzine HCl 25 mg tablet 25 mg PO DAILY PRN Anxiety #30 tabs 09/03/22 Rx rivaroxaban 20 mg tablet 20 mg PO QPM #90 tabs 09/03/22 Rx Past Med/Surg History Medical History Below-knee amputation of left lower extremity CHF (congestive heart failure) Depression Diabetes type 2, uncontrolled Diabetic peripheral neuropathy associated with type 2 diabetes mellitus DVT (deep venous thrombosis) (08/16/13) Dysesthesia Dyslipidemia Hip pain History of acute renal failure History of cellulitis History of GI bleed (~07/2021) Hx of renal calculi Hypertension NSTEMI (non-ST elevated myocardial infarction) Personal history of diabetic foot ulcer Venous stasis of both lower extremities Venous ulcer of right leg Vitamin D deficiency Surgical History History of esophagogastroduodenoscopy (EGD) History of repair of right rotator cuff Hx laparoscopic cholecystectomy Hx of amputation below knee Hx of colonoscopy Hx of nephrostomy S/P hernia repair S/P PICC central line placement Family History Aunt No problems noted. Grandmother (Maternal) Throat cancer Myocardial infarction Grandfather (Maternal) Myocardial infarction Other Coronary heart disease Diabetes No pertinent family history Denies family history of Ovarian cancer Prostate cancer Breast cancer Colorectal cancer Social History Smoking Status: Never smoker Tobacco Type: Cigarettes Cigarettes Per Day: 1 Pack; Second Hand Exposure: No; Hx Alcohol Use: No Hx Substance Use: No Preferred Language: Russian Communication Ability: Effective Jerker Required: No Beliefs That Will Affect Care: None marital status: Current Living Situation: Spouse Current Living Situation Comment: Home current occupational status: disabled How many Children do You have: 2 other: caregiver, 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 Feels Safe at Home: Yes Physical Activity Frequency: Does not Exercise Seatbelt Use: always Sunscreen Use: Yes Assistive Devices: Walker Review of Systems Review of Systems: The patient denies chest pain, palpitations, shortness of breath, dyspnea on exertion, cough, sore throat, fevers, chills, sweats, nausea, vomiting, diarrhea , constipation, abdominal pain, pelvic pain, blood in urine or stool, dysuria, urinary frequency or urgency, lightheadedness, dizziness, headache, memory loss, loss of consciousness, focal or generalized weakness, numbness or tingling in arms, generalized arthralgias or myalgias, back or neck pain, or night sweats. The review of systems is otherwise negative other than for that already noted above, and at least 10 systems have been reviewed. Physical Exam Physical Exam: The patient is awake, alert and oriented 3, well developed and well nourished, normocephalic and atraumatic, lying in bed and in no acute distress. HEENT--PERRL, EOMI, mucous membranes and oropharynx normal Neck--supple. No JVD. No bruits. Thyroid normal, trachea midline, no adenopathy. Heart--normal S1 and S2. No murmurs, rubs or gallops. Lungs--clear bilaterally, no respiratory distress, no accessory muscle use. Abdomen--normal bowel sounds and soft. Nontender. Nondistended. Morbidly obese Extremities--left BKA. Right lower extremity with 2+ pitting edema, mild erythema, chronic venous stasis changes, and multiple areas of clear fluid leakage below the knee Dermatologic--normal skin turgor, normal color, no abnormal lymph nodes, no rash. Neurologic--cranial nerves II through XII grossly intact. Rheumatologic--limited exam due to body habitus Psychiatric--normal affect. Results & Data Results & Data ([facility]) Vital Signs (Past 12 Hours) Vital Signs Temp Pulse Pulse Resp BP BP Pulse Ox 09/10/22 06:32 153/61 H 09/10/22 06:32 112 H 20 92 09/10/22 06:30 107 H 23 94 09/10/22 06:20 107 H 24 92 09/10/22 06:10 103 H 20 95 09/10/22 06:00 102 H 22 94 09/10/22 06:00 170/130 H 09/10/22 05:50 107 H 28 H 92 09/10/22 05:47 105 H 21 91 09/10/22 05:47 151/76 H 09/10/22 05:40 105 H 32 H 92 09/10/22 05:38 104 H 24 94 09/10/22 05:00 109 H 24 90 09/10/22 05:00 122/92 09/10/22 04:50 108 H 17 93 09/10/22 04:40 109 H 19 94 09/10/22 04:30 116 H 24 93 09/10/22 04:28 116 H 19 93 09/10/22 06:33 107 H 20 153/61 H 91 09/10/22 05:00 122 H 23 122/92 92 09/10/22 04:41 93 09/10/22 04:28 38 C H 119 H 163/83 H 93 O2 Del Method 09/10/22 06:32 09/10/22 06:32 09/10/22 06:30 09/10/22 06:20 09/10/22 06:10 09/10/22 06:00 09/10/22 06:00 09/10/22 05:50 09/10/22 05:47 09/10/22 05:47 09/10/22 05:40 09/10/22 05:38 09/10/22 05:00 09/10/22 05:00 09/10/22 04:50 09/10/22 04:40 09/10/22 04:30 09/10/22 04:28 09/10/22 06:33 Room Air 09/10/22 05:00 Room Air 09/10/22 04:41 Room Air 09/10/22 04:28 Room Air Laboratory Results Laboratory Results WBC 15.65 K/ul (4.8-10.8) H 09/10/22 04:35 RBC 4.46 M/uL (4.63-6.08) L 09/10/22 04:35 Hgb 13.3 g/dl (14.0-18.0) L 09/10/22 04:35 Hct 38.7 % (40.1-51.0) L 09/10/22 04:35 MCV 86.8 fL (80.0-100.0) 09/10/22 04:35 MCH 29.8 pg (25.0-34.0) 09/10/22 04:35 MCHC 34.4 g/dL (32.0-36.0) 09/10/22 04:35 RDW Std Deviation 44.3 fL (36.4-46.3) 09/10/22 04:35 RDW Coeff of Wil 14.0 % (11.5-14.5) 09/10/22 04:35 Plt Count 196 K/uL (130-400) 09/10/22 04:35 MPV 9.7 fL (9.4-12.4) 09/10/22 04:35 Immature Gran % (Auto) 0.4 % 09/10/22 04:35 Neut % (Auto) 89.1 % 09/10/22 04:35 Lymph % (Auto) 4.3 % 09/10/22 04:35 [place] % (Auto) 4.1 % 09/10/22 04:35 Eos % (Auto) 1.8 % 09/10/22 04:35 Baso % (Auto) 0.3 % 09/10/22 04:35 Neut # (Auto) 13.96 K/uL (1.4-6.5) H 09/10/22 04:35 Lymph # (Auto) 0.67 K/uL (1.2-3.4) L 09/10/22 04:35 [place] # (Auto) 0.64 K/uL (0.24-0.82) 09/10/22 04:35 Eos # (Auto) 0.28 K/uL (0-0.50) 09/10/22 04:35 Baso # (Auto) 0.04 K/uL (0-0.2) 09/10/22 04:35 Immature Gran # (Auto) 0.06 K/uL (0.00-0.02) H 09/10/22 04:35 Sodium 135 mmol/L (136-145) L 09/10/22 04:35 Potassium 3.7 mmol/L (3.5-5.1) 09/10/22 04:35 Chloride 102 mmol/L (98-107) 09/10/22 04:35 Carbon Dioxide 24 mmol/L (21-32) 09/10/22 04:35 Anion Gap 9 (3-11) 09/10/22 04:35 BUN 18 mg/dl (6-23) 09/10/22 04:35 Creatinine 1.09 mg/dl (0.6-1.4) 09/10/22 04:35 Est Cr Clr Drug Dosing 145.4 ml/min 09/10/22 04:35 Est GFR ( Amer) 88.7 ml/min 09/10/22 04:35 Est GFR (Non-Af Amer) 76.5 ml/min 09/10/22 04:35 BUN/Creatinine Ratio 16.5 (10-20) 09/10/22 04:35 Glucose 250 mg/dl (70-99(Fasting)) H 09/10/22 04:35 Lactate 2.3 mmol/L (0.4-2.0) H* 09/10/22 04:35 Calcium 9.2 mg/dl (8.5-10.1) 09/10/22 04:35 Total Bilirubin 1.1 mg/dl (0.2-1.0) H 09/10/22 04:35 AST 17 U/L (13-39) 09/10/22 04:35 ALT 14 U/L (7-52) 09/10/22 04:35 Alkaline Phosphatase 71 U/L (34-104) 09/10/22 04:35 Troponin I High Sens 46.4 pg/ml (0-20) H D 09/10/22 04:35 B-Natriuretic Peptide 21 pg/ml (0-100) 09/10/22 04:35 Total Protein 7.3 gm/dl (6.0-8.3) 09/10/22 04:35 Albumin 3.8 gm/dl (3.4-5.0) 09/10/22 04:35 Globulin 3.5 gm/dl (2.5-4.0) 09/10/22 04:35 Albumin/Globulin Ratio 1.1 (0.9-2) 09/10/22 04:35 Lipase 19 U/L (11-82) 09/10/22 04:35 Procalcitonin 1.11 ng/ml (0-0.5) H 09/10/22 04:35 SARS-CoV-2 (PCR) NEGATIVE (Negative) 09/10/22 04:39 Influenza Type A (PCR) Negative (Neg) 09/10/22 04:39 Influenza Type B (PCR) Negative (Neg) 09/10/22 04:39 RSV (RT-PCR) Negative (Neg) 09/10/22 04:39 Impressions Chest X-Ray 09/10/22 04:32 XR chest 1V portable HISTORY: 52 years-old Male Chest Pain . Acute shortness of breath COMPARISON: Chest radiographs 06/16/2022 TECHNIQUE: AP view of the chest FINDINGS: Cardiac silhouette is enlarged. Mild pulmonary vascular congestion. No pneumothorax or pleural effusion. Mild bibasilar opacities. Bones appear grossly intact. IMPRESSION: 1. Cardiomegaly with pulmonary vascular congestion. 2. Mild bibasilar opacities may be secondary to summation density/atelectasis. ACT 112: Negative or not required by law. The above report was generated using voice recognition software. It may contain grammatical, syntax or spelling errors. Electronically signed by: Jamey Dent M.D. 09/10/2022 6:26 AM Venous Doppler Study 09/10/22 04:33 US venous doppler LE RT HISTORY: 52 years-old Male swelling, eval for dvt acute pain and swelling of the right lower leg COMPARISON: 06/11/2022 TECHNIQUE: Multiple real-time sonographic images of the right lower extremity deep venous structures were obtained assessing grayscale appearance, color and spectral flow. FINDINGS: Normal flow, compressibility, phasicity and augmentation. Limited exam secondary to patient body habitus. There is limited visualization of the right lower extremity deep venous structures, notably the superficial femoral vein and the calf veins. Right inguinal chain lymph nodes measure up to 4.7 cm. Subcutaneous edema. IMPRESSION: Limited exam as above. No sonographic evidence of deep venous thrombosis. ACT 112: Negative or not required by law. The above report was generated using voice recognition software. It may contain grammatical, syntax or spelling errors. Electronically signed by: Jamey Dent M.D. 09/10/2022 6:23 AM Code Status & VTE Plan Code Status Full code VTE Prophylaxis Plan VTE Prophylaxis will be ordered: Yes (1) Cellulitis Laterality: right Site of cellulitis: extremity Site of cellulitis of extremity: lower extremity Qualified Code(s): L03.115 - Cellulitis of right lower limb
[2022-09-10] MEDS ORDERED: METOPROLOL TARTRATE 1 MG/ML VIAL IV PRN (06:45)
--- NOTE | 2022-09-10 06:57 | Billing Data ---
Date of Service September 10, 2022 Coding Level of Care Code 19349 Initial Inpt Care Lvl 3
[2022-09-10] MEDS ORDERED: BUMETANIDE 4 MG in SYRINGE 0 ML IV SCH (07:00)
[2022-09-10] MEDS ORDERED: INSULIN REGULAR HUM U SQ SCH (08:40)
[2022-09-10] MEDS ORDERED: CARBOHYDRATES FOR HYPOGLYCEMIA PO PRN (08:40)
[2022-09-10] MEDS ORDERED: hydrOXYzine HCl 25 MG TAB PO PRN (08:40)
[2022-09-10] MEDS ORDERED: GLUCOSE 10 TAB/TUBE PO PRN (08:40)
[2022-09-10] MEDS ORDERED: [UNRECOGNIZED DRUG - OTHER] SQ SCH (08:40)
[2022-09-10] MEDS ORDERED: ALBUTEROL HFA 8 GM INHALER INH PRN (08:40)
[2022-09-10] MEDS ORDERED: GLUCOSE 40% GEL 15 GM TUBE PO PRN (08:40)
[2022-09-10] MEDS ORDERED: GLUCAGON FOR INJ 1 MG VIAL SQ PRN (08:40)
[2022-09-10] MEDS ORDERED: DEXTROSE 50% 50 ML SYRINGE IV PRN (08:40)
[2022-09-10] MEDS ORDERED: INSULIN SQ SCH (08:40)
[2022-09-10] MEDS ORDERED: ONDANSETRON INJ 2 MG/ML 2 ML VIAL IV PRN (08:40)
[2022-09-10] MEDS ORDERED: FLUARIX QUADRIVALENT 0.5 ML SYR IM ONE (08:57)
[2022-09-10] MEDS ORDERED: PHARMACY GLYCEMIC MGMT CONSULT PRN (09:17)
[2022-09-10] MEDS ORDERED: INSULIN ASPART PER UNIT SC SCH (09:30)
[2022-09-10] MEDS: LANTUS PER UNIT CHARGE SQ SCH ×2 (09:43→20:20)
[2022-09-10] MEDS: BUMETANIDE 4 MG in SYRINGE 0 ML IV SCH ×2 (09:44→16:20)
[2022-09-10] MEDS: FLUoxetine HCL 20 MG CAP PO SCH (09:47)
[2022-09-10] MEDS: MULTIVITAMIN TAB PO SCH (09:47)
[2022-09-10] MEDS: lisinopril 2.5 MG TAB PO SCH (09:47)
[2022-09-10] MEDS: CHOLECALCIFEROL 5,000 UNITS 125 MCG TAB PO SCH (09:47)
[2022-09-10] MEDS: METOPROLOL TARTRATE 50 MG TAB PO SCH (09:47)
[2022-09-10] MEDS: CETIRIZINE HCL 10 MG TABLET PO SCH (09:48)
--- NOTE | 2022-09-10 09:53 | Pharmacy Report ---
Pharmacy Glycemic Short Note 2 - Date of Service September 10, 2022 - Glycemic Short BSG Results (Last 24 hours): 09/10/22 09/10/22 04:35 08:48 Glucose 250 H POC Glucose 255 H OUTPATIENT ANTIDIABETIC REGIMEN: * U-500 insulin, 120 units SC TIDM * Tirzepatide 5 mg SC weekly HbA1c: 8.9% (06/12/22), recheck ordered ASSESSMENT: * is a 52 year old male, known to pharmacy glycemic service. Automatic pharmacy glycemic consult generated due to provider ordering home U-500 insulin. We have utilized SC basal/bolus regimen while inpatient in the past and will plan to do that again. * Admitted for RLE cellulitis, initiated on daptomycin and cefepime * Last admission in May of 2022, at that time patient received ~100 units of basal/day and 50-80 units bolus/day * Will order initial doses based on the regimen last admission * Pertinent PMH includes, poorly controlled T2DM (follows with [facility]), morbid obesity, hx of diabetic foot ulcers with L BKA PLAN FOR INPATIENT GLYCEMIC CONTROL: * Basal insulin * Lantus 50 units SQ BID * Bolus insulin * NovoLog per scale ACHS or Q6hrs while NPO * Goal Range: Low 110 mg/dL - High 140 mg/dL * Correction Factor: 6 mg/dL/unit with breakfast, 10 mg/dL/unit with lunch, dinner, HS * Nutritional / Prandial insulin per carb ratio of 1 unit per 3 grams CHO consumed at breakfast, 4 with lunch, dinner, HS
[2022-09-10] MEDS ORDERED: CHOLESTYRAMINE LIGHT 4 GM PKT PO SCH ×2 (10:30→17:00)
[2022-09-10] MEDS: ACETAMINOPHEN 325 MG TAB PO PRN ×3 (10:42→19:49)
[2022-09-10] MEDS: INSULIN ASPART PER UNIT SC SCH ×3 (12:07→20:20)
[2022-09-10] MEDS: oxyCODONE HCL IR 5 MG TAB (IMMEDIATE RELEASE) PO PRN (13:07)
[2022-09-10] MEDS: GABAPENTIN 600 MG TAB PO SCH ×2 (13:34→20:26)
[2022-09-10] MEDS: RIVAROXABAN 20 MG TAB PO SCH (16:20)
[2022-09-10] MEDS: CEFEPIME 2,000 MG in SYRINGE 0 ML IV SCH (16:20)
[2022-09-10] MEDS: CHOLESTYRAMINE LIGHT 4 GM PKT PO SCH (19:28)
--- NOTE | 2022-09-10 19:52 | Communication Note ---
Date of Service: September 10, 2022 Patient was seen and examined however admitted the same day therefore will not be billing for this encounter. Admission for cellulitis of his right leg after his right thigh. No thrush areas under his pannus. No DVT on ultrasound. No fluid collection on exam. Blood cultures pending. Continue daptomycin and cefepime pending cultures. Oxycodone added for pain relief. He reports taking a total of 1800 mg gabapentin a day therefore this was also prescribed.
[2022-09-10] MEDS: DOXEPIN HCL 10 MG CAPSULE PO SCH (20:26)
[2022-09-10] MEDS: TOPIRAMATE 25 MG TAB PO SCH (20:27)
[2022-09-10] MEDS ORDERED: GABAPENTIN 600 MG TAB PO SCH (21:00)
[2022-09-11] MEDS: CEFEPIME 2,000 MG in SYRINGE 0 ML IV SCH ×2 (04:25→17:26)
[2022-09-11] MEDS: ACETAMINOPHEN 325 MG TAB PO PRN ×3 (04:30→17:26)
[2022-09-11] MEDS: DAPTOmycin 525 MG in SYRINGE 0 ML IV SCH (05:03)
[2022-09-11 06:24] LABS: Basophils # (auto) 0.02 K/uL (0-0.2); Basophils % (auto) 0.1 %; Eosinophils # (auto) 0.08 K/uL (0-0.50); Eosinophils % (auto) 0.6 %; Hematocrit (blood only) 34.6 % (40.1-51.0); Hemoglobin 11.5 g/dl (14.0-18.0); Immature Granulocytes # (auto) 0.07 K/uL (0.00-0.02); Immature Granulocytes % (auto) 0.5 %; Lymphocytes # (auto) 1.29 K/uL (1.2-3.4); Lymphocytes % (auto) 9.3 %; Mean Corpuscular Hemoglobin 29.9 pg (25.0-34.0); Mean Corpuscular Hgb Conc 33.2 g/dL (32.0-36.0); Mean Corpuscular Volume 89.9 fL (80.0-100.0); Mean Platelet Volume 9.8 fL (9.4-12.4); Monocytes # (auto) 1.21 K/uL (0.24-0.82); Monocytes % (auto) 8.8 %; Neutrophils # (auto) 11.14 K/uL (1.4-6.5); Neutrophils % (auto) 80.7 %; Platelet Count 183 K/uL (130-400); RDW Coefficient of Variation 14.6 % (11.5-14.5); RDW Standard Deviation 47.6 fL (36.4-46.3); Red Blood Count 3.85 M/uL (4.63-6.08); White Blood Count 13.81 K/ul (4.8-10.8)
--- NOTE | 2022-09-11 06:48 | Electrocardiogram Report ---
Test Reason : Blood Pressure : / mmHG Vent. Rate : 106 BPM Atrial Rate : 106 BPM P-R Int : 184 ms QRS Dur : 094 ms QT Int : 352 ms P-R-T Axes : 068 093 012 degrees QTc Int : 467 ms Sinus tachycardia Rightward axis Low voltage QRS Incomplete right bundle branch block Possible Inferior infarct , age undetermined Abnormal ECG When compared with ECG of 11-JUN-2022 18:36, T wave inversion now evident in Inferior leads Confirmed by Cleveland Carlson ([id number]) on 09/11/2022 6:47:49 AM Referred By: REFERRED SELF Confirmed By:Cleveland Carlson
[2022-09-11 06:49] LABS: Albumin Globulin Ratio 0.9 (0.9-2); Albumin Level 3.3 gm/dl (3.4-5.0); BUN Creatinine Ratio 17.7 (10-20); Bilirubin,Total 1.3 mg/dl (0.2-1.0); Calcium 8.6 mg/dl (8.5-10.1); Creatinine Clr Calc Pharmacy 125.9 ml/min; Est GFR (African American) 75.9 ml/min; Est GFR (Non-African American) 65.5 ml/min; Globulin 3.5 gm/dl (2.5-4.0); Magnesium 1.5 mg/dl (1.7-2.4); Potassium 3.9 mmol/L (3.5-5.1); Total Protein 6.8 gm/dl (6.0-8.3)
[2022-09-11] MEDS: CHOLECALCIFEROL 5,000 UNITS 125 MCG TAB PO SCH (08:20)
[2022-09-11] MEDS: MULTIVITAMIN TAB PO SCH (08:20)
[2022-09-11] MEDS: lisinopril 2.5 MG TAB PO SCH (08:20)
[2022-09-11] MEDS: CETIRIZINE HCL 10 MG TABLET PO SCH (08:20)
[2022-09-11] MEDS: METOPROLOL TARTRATE 50 MG TAB PO SCH (08:20)
[2022-09-11] MEDS: FLUoxetine HCL 20 MG CAP PO SCH (08:21)
[2022-09-11] MEDS: GABAPENTIN 600 MG TAB PO SCH ×3 (08:21→23:12)
[2022-09-11] MEDS: INSULIN ASPART PER UNIT SC SCH ×4 (08:31→21:15)
[2022-09-11] MEDS: LANTUS PER UNIT CHARGE SQ SCH ×2 (08:31→23:22)
[2022-09-11] MEDS: MAGNESIUM SULFATE / D5W 1 GM/100 ML BAG IV SCH ×2 (08:32→11:06)
[2022-09-11] MEDS: BUMETANIDE 4 MG in SYRINGE 0 ML IV SCH ×2 (09:03→17:22)
[2022-09-11] MEDS: CHOLESTYRAMINE LIGHT 4 GM PKT PO SCH ×2 (10:19→23:37)
[2022-09-11] MEDS ORDERED: SENNA 8.6 MG TAB PO ONE (10:30)
--- NOTE | 2022-09-11 10:32 | Electrocardiogram Report ---
Test Reason : Blood Pressure : / mmHG Vent. Rate : 096 BPM Atrial Rate : 096 BPM P-R Int : 212 ms QRS Dur : 104 ms QT Int : 376 ms P-R-T Axes : 082 057 018 degrees QTc Int : 475 ms Poor data quality, interpretation may be adversely affected Sinus rhythm with 1st degree A-V block Low voltage QRS Possible Old Inferior infarct (cited on or before 10-SEP-2022) Abnormal ECG When compared with ECG of 10-SEP-2022 04:49, No significant change Confirmed by Tristen Parra ([id number]) on 09/11/2022 10:32:32 AM Referred By: REFERRED SELF Confirmed By:Tristen Parra
[2022-09-11] MEDS: RIVAROXABAN 20 MG TAB PO SCH (17:22)
--- NOTE | 2022-09-11 17:27 | Hospitalist Progress Note ---
Date of Service September 11, 2022 Assessment & Plan (1) Cellulitis: Plan: Improving Cellulitis of right lower extremity secondary to fluid leakage- Continue daptomycin IV and cefepime IV as begun in ED Needs adequate diuresis for healing (2) Volume overload: Plan: Currently appears euvolemic but with pitting edema likely mostly secondary to venous insufficiency Volume overload/lymphedema/CHF/hypertension- Continue same Bumex 4 mg IV twice daily to aim slightly negative balance. Follow serial BMP and magnesium levels (3) Lymphedema: (4) CHF (congestive heart failure): (5) Elevated troponin: Plan: The patient will be admitted to telemetry for serial cardiac enzymes, serial EKG's, cardiac rhythm monitoring Troponin 46.4 upon admission with range 19-30.3 Differentiate between supply demand mismatch versus direct cardiac event Continue metoprolol tartrate 50 mg every morning and lisinopril 2.5 mg every morning (6) Hypertension: (7) Dyslipidemia: Plan: Continue rosuvastatin 20 mg daily (8) Diabetes type 2, uncontrolled: Plan: Appreciate pharmacy for glycemic control. HbA1c pending (9) Diabetic peripheral neuropathy associated with type 2 diabetes mellitus: Plan: Continue topiramate and gabapentin (10) Depression: Plan: Continue doxepin, fluoxetine, gabapentin and hydroxyzine Plan VTE prophylaxis - Xarelto Diet -heart healthy, type 2 diabetes, low-sodium Disposition -continued admission to PCU Admission and Anticipated Discharge Date Admission Date: September 10, 2022 Subjective Cellulitis improving. T-max 39.3 C on yesterday around 5 PM. Less fatigued today. Negative balance of 454 mL yesterday. Pain under control. Review of Systems Review of Systems: All systems reviewed & are unremarkable except as noted in Subjective Physical Exam Constitutional: WD/WN, vitals as above Respiratory: normal respiratory effort, lungs clear to auscultation Cardiovascular: Rate/Rhythm: regular rate and regular rhythm Heart Sounds: no murmur Extremities: + pedal edema (left 3+ pitting) Gastrointestinal (Abdomen): normal bowel sounds, soft, nontender, no hepatosplenomegaly Skin: Cellulitis from ankle to groin runs along the back of his thigh, less erythematous than yesterday. Warm to touch. Psychiatric: A+Ox3, euthymic affect Results & Data Results & Data ([facility]) Vital Signs (Past 12 Hours) Vital Signs Temp Pulse Pulse Resp BP Pulse Ox O2 Del Method 09/11/22 15:35 77 09/11/22 15:24 36.8 C 77 24 96/68 L 95 Room Air 09/11/22 11:38 37 C 78 18 111/64 93 Room Air 09/11/22 08:13 36.7 C 88 20 107/65 92 Room Air 09/11/22 07:30 91 H 09/11/22 05:45 37.1 C 67 19 119/71 98 Room Air PG Care Time/CCT Total # of Minutes Spent Total Time Spent with Patient: Total time spent is greater than 50% in coordination of care (as documented) at patient's floor/unit and/or counseling patient: Coding Level of Care Code 94527 Subseq Hosp Care Lvl 3 Diagnoses Cellulitis L03.115 Laterality: right Site of cellulitis: extremity Site of cellulitis of extremity: lower extremity Volume overload E87.70 Lymphedema I89.0 CHF (congestive heart failure) I50.9 Elevated troponin R77.8 Hypertension I10 Dyslipidemia E78.5 Diabetes type 2, uncontrolled E11.65 Diabetic peripheral neuropathy associated with type 2 diabetes mellitus E11.42 Depression F32.9 (1) Cellulitis Laterality: right Site of cellulitis: extremity Site of cellulitis of extremity: lower extremity Qualified Code(s): L03.115 - Cellulitis of right lower limb
[2022-09-11] MEDS ORDERED: MoRPHine SULFATE 2 MG/ML CARP IV STA (22:12)
[2022-09-11] MEDS ORDERED: Heparin IV Adult Wt-Based Low-Dose *NO* Bolus Protocol IV SCH (22:16)
--- NOTE | 2022-09-11 22:25 | Communication Note ---
Date of Service: September 11, 2022 I was messaged by patient's nurse as patient had developed acute-onset pain across lower bilateral chest, 3/10 severity, with associated dizziness/light headedness, diaphoresis and fatigue. On arrival in the room the patient reports that the pain is now 1/10 in severity but persistent over ~last 45 minutes. Other symptoms have resolved. On exam the patient is in no acute distress. Does not have pain reproducible on palpation of chest wall. Heart is RRR w/o m/r/g. Lungs CTAB. Checked hsTroponin which is elevated at 253.5 (was 46.4 on 09/10, had been trending up mildly but was not followed to peak). EKG with possible inferior infarct which is new as of 09/10 - of note patient also had T-wave inversions in inferior leads on 09/10. However EKG tonight without ST/T abnormalities. Most likely patient's chest pain and elevated hsTroponin is a measure of demand ischemia in context of infection, but this may also represent ACS especially with recent EKG changes as of 09/10. - hold Xarelto, give Heparin gtt LOW DOSE W/O BOLUS - trend Troponin Q6H to peak - repeat EKG in AM - consult Cardiology - NPO at midnight Resident Activity Tracking Resident Involvement: Resident Care Provided Care Provided: Adult Hospital Medicine
[2022-09-11] MEDS ORDERED: HEPARIN SODIUM/DEXTROSE 25,000 UNITS/500 ML BAG IV SCH (22:30)
[2022-09-11] MEDS: NITROGLYCERIN SL 0.4 MG/TAB TAB SL PRN (22:50)
[2022-09-11] MEDS: TOPIRAMATE 25 MG TAB PO SCH (23:13)
[2022-09-11] MEDS: DOXEPIN HCL 10 MG CAPSULE PO SCH (23:13)
[2022-09-11 23:30] LABS: INR 1.5 (0.9-1.1); Partial Thromboplastin Ratio 1.5; Prothrombin Time 15.2 Seconds (9.0-12.0)
[2022-09-12] MEDS: NITROGLYCERIN SL 0.4 MG/TAB TAB SL PRN ×2 (01:01→01:29)
[2022-09-12] MEDS ORDERED: MoRPHine SULFATE 2 MG/ML CARP IV STA (01:37)
[2022-09-12] MEDS ORDERED: diphenhydrAMINE 50 MG/ML VIAL IV STA (02:14)
[2022-09-12] MEDS: CEFEPIME 2,000 MG in SYRINGE 0 ML IV SCH ×2 (04:36→16:46)
[2022-09-12] MEDS: DAPTOmycin 525 MG in SYRINGE 0 ML IV SCH (05:30)
[2022-09-12 05:38] LABS: Basophils # (auto) 0.02 K/uL (0-0.2); Basophils % (auto) 0.2 %; Eosinophils # (auto) 0.44 K/uL (0-0.50); Eosinophils % (auto) 4.6 %; Hematocrit (blood only) 32.5 % (40.1-51.0); Immature Granulocytes # (auto) 0.05 K/uL (0.00-0.02); Immature Granulocytes % (auto) 0.5 %; Lymphocytes % (auto) 16.6 %; Mean Corpuscular Hemoglobin 29.7 pg (25.0-34.0); Mean Corpuscular Hgb Conc 33.8 g/dL (32.0-36.0); Mean Corpuscular Volume 87.8 fL (80.0-100.0); Mean Platelet Volume 9.9 fL (9.4-12.4); Monocytes # (auto) 1.04 K/uL (0.24-0.82); Monocytes % (auto) 10.8 %; Neutrophils # (auto) 6.46 K/uL (1.4-6.5); Neutrophils % (auto) 67.3 %; Platelet Count 175 K/uL (130-400); RDW Coefficient of Variation 14.4 % (11.5-14.5); RDW Standard Deviation 46.2 fL (36.4-46.3); White Blood Count 9.61 K/ul (4.8-10.8)
[2022-09-12 05:56] LABS: Partial Thromboplastin Ratio 1.5; Partial Thromboplastin Time 40.9 Seconds (21.0-31.0)
[2022-09-12 06:24] LABS: Albumin Globulin Ratio 0.9 (0.9-2); Albumin Level 3.3 gm/dl (3.4-5.0); BUN Creatinine Ratio 21.1 (10-20); Bilirubin,Total 0.7 mg/dl (0.2-1.0); Calcium 8.2 mg/dl (8.5-10.1); Est GFR (Non-African American) 72.5 ml/min; Globulin 3.5 gm/dl (2.5-4.0); Magnesium 1.9 mg/dl (1.7-2.4); Potassium 3.6 mmol/L (3.5-5.1); Total Protein 6.8 gm/dl (6.0-8.3); Troponin I High Sensitivity 162.7 pg/ml (0-20)
[2022-09-12 07:30] LABS: Estimated Average Glucose 146 mg/dl; Hemoglobin A1C 6.7 % (4.5-5.6)
[2022-09-12] MEDS: INSULIN ASPART PER UNIT SC SCH ×4 (07:53→20:17)
[2022-09-12] MEDS: BUMETANIDE 4 MG in SYRINGE 0 ML IV SCH ×2 (07:54→16:48)
--- NOTE | 2022-09-12 08:38 | Cardiology Consultation ---
Date of Consultation September 12, 2022 Assessment & Plan (1) Chest pain: (2) Elevated troponin: (3) History of CHF (congestive heart failure): (4) History of deep venous thrombosis: (5) Morbid obesity with BMI of 50.0-59.9, adult: Plan 52-year-old man with morbid obesity admitted with with cellulitis noted intermittent chest pain last evening without obvious ECG changes but with a troponin peak and decay curve. At this point, reluctant to call this a non-STEMI but would not exclude this possibility. Although seems unlikely that this is an acute thrombotic event given the absence of ECG changes, reasonable to continue intravenous heparin overnight until the situation becomes clearer. Of note, his vital signs show relative hypotension around the time he had the chest discomfort, suggesting the possibility that his modest troponin peak and decay could have been a supply/demand phenomenon secondary to transient hypoperfusion. Reason for hypotension is unclear, possibly vagally mediated. Today, he is normotensive but still appears mildly hypervolemic. Reasonable to continue his usual diuretic dose to pursue further volume unloading. Would attempt to obtain ECG during chest pain to better discern whether myocardial ischemia plays a role. If he has no further symptoms, would discontinue heparin tomorrow and restart rivaroxaban. Since he is a poor cardiac catheterization candidate due to his morbid obesity and personal reluctance to undergo such procedure, and since he did have recent imaging studies earlier this year which did not suggest ischemia, conservative medical management of possible noncritical coronary artery disease is reasonable. No need for aspirin since he is on rivaroxaban, continue high-dose statin, continue metoprolol, have sublingual nitroglycerin available and could consider long-acting nitrates if he develops recurrent chest pain which is felt to be anginal. No immediate change in his current medical regimen. Please contact Dr. Espitia tomorrow if the patient has further symptoms overnight, as he will be covering [facility] cardiology. Otherwise, if the patient remains asymptomatic, cardiology follow-up with Dr. Yates as an outpatient. History of Present Illness Reason for Consultation: Elevated troponin, recent inferior ECG changes Requesting Physician: Jose Alberto Obando MD Attending Physician: Reynold Brennan MD History of Present Illness 52-year-old man with DM, asthma, chronic lymphedema, chronic congestive heart failure with preserved LV systolic function, was admitted with right lower extremity cellulitis, last evening he developed chest discomfort and was noted to have a troponin peak and decay curve without obvious ECG changes. He is followed by Dr Yates from a cardiology perspective routinely and underwent a nuclear stress study earlier this year (November 2021) which showed no ische tye, calculated ejection fraction was 50% on the scan. An echocardiogram around that time was too technically limited to assess LV function, but it was felt to be likely normal or near normal. No major valvular disease seen. He states that since his admission 2 days ago he has noted intermittent chest discomfort, last night it was sufficiently severe to awaken him from sleep. The discomfort seemed fairly localized to left lower chest/epigastrium, he did not note any radiation. He noted associated lightheadedness, diaphoresis, and profound fatigue. ECG on admission had shown sinus tachycardia at 106 bpm with minor T wave inversions, subsequent ECG showed sinus rhythm at normal heart rates with no ST or T wave abnormalities. It was unclear if he was still having chest pain when his ECG was obtained last evening. Troponin on admission was 46 and this did increase last evening to 253 before subsequently declining (162 and 147). At the time of my evaluation this morning, he was comfortable and had no somatic complaints. Allergies Allergy/AdvReac Type Severity Reaction Status Date / Time clindamycin Allergy Intermediate Hives Verified 07/29/22 10:39 vancomycin AdvReac Intermediate KYE Verified 07/29/22 10:39 SYNDROME piperacillin [From Zosyn] AdvReac Mild skin rash, Verified 07/29/22 10:39 itching, mild tazobactam [From Zosyn] AdvReac Mild skin rash, Verified 07/29/22 10:39 itching, mild Home Medications Medication Instructions Recorded Confirmed Type pen needle, diabetic 29 gauge x #100 ea 03/14/20 07/29/22 Rx 1/2" (Comfort EZ Pen [place]) multivitamin 1 tab PO QAM 08/15/21 07/29/22 History topiramate 25 mg tablet 25 mg PO HS #60 tabs 09/19/21 07/29/22 Rx blood sugar diagnostic #100 ea 10/04/21 07/29/22 Rx rosuvastatin 20 mg tablet (Crestor) 20 mg PO HS #90 tabs 01/16/22 07/29/22 Rx cholecalciferol (vitamin D3) 125 5,000 unit PO QAM #90 tabs 02/18/22 07/29/22 Rx mcg (5,000 unit) tablet (Vitamin D3) fluoxetine 60 mg tablet 60 mg PO QAM #90 tabs 02/18/22 07/29/22 Rx lisinopril 2.5 mg tablet 2.5 mg PO QAM #90 tabs 04/01/22 07/29/22 Rx metoprolol tartrate 50 mg tablet 50 mg PO QAM 06/11/22 07/29/22 History cholestyramine (with sugar) 4 gram 4 g PO BID bile salt diarrhea #60 07/25/22 07/29/22 Rx powder for susp in a packet ea Dexcom G6 Assembly Cleaner (blood-glucose #1 ea 08/05/22 Rx meter,continuous) Dexcom G6 Sensor (blood-glucose #3 ea 08/05/22 Rx sensor) Dexcom G6 Transmitter #1 ea 08/05/22 Rx (blood-glucose transmitter) insulin regular hum U-500 conc 500 80 unit subcut AC 08/07/22 History unit/mL(3 mL) subcut pen tirzepatide 5 mg/0.5 mL 5 mg (0.5 mL) subcut Q7D #2 mL 08/07/22 Rx subcutaneous pen injector bumetanide 1 mg tablet 4 mg PO BID #180 tabs 08/25/22 Rx albuterol sulfate 90 mcg/actuation 2 puff inhalation Q6H PRN 09/03/22 Rx aerosol inhaler (Ventolin HFA) Shortness Of Breath Or Wheezing #18 grams cetirizine 10 mg tablet 10 mg PO QAM #90 tabs 09/03/22 Rx doxepin 10 mg capsule 10 mg PO HS #90 caps 09/03/22 Rx gabapentin 600 mg tablet 600 mg PO HS #90 tabs 09/03/22 Rx hydroxyzine HCl 25 mg tablet 25 mg PO DAILY PRN Anxiety #30 tabs 09/03/22 Rx rivaroxaban 20 mg tablet 20 mg PO QPM #90 tabs 09/03/22 Rx Patient History Medical History Below-knee amputation of left lower extremity CHF (congestive heart failure) Depression Diabetes type 2, uncontrolled Diabetic peripheral neuropathy associated with type 2 diabetes mellitus DVT (deep venous thrombosis) (08/16/13) Dysesthesia Dyslipidemia Hip pain History of acute renal failure History of cellulitis History of GI bleed (~07/2021) Hx of renal calculi Hypertension NSTEMI (non-ST elevated myocardial infarction) Personal history of diabetic foot ulcer Venous stasis of both lower extremities Venous ulcer of right leg Vitamin D deficiency Surgical History History of esophagogastroduodenoscopy (EGD) History of repair of right rotator cuff Hx laparoscopic cholecystectomy Hx of amputation below knee Hx of colonoscopy Hx of nephrostomy S/P hernia repair S/P PICC central line placement Family History Aunt No problems noted. Grandmother (Maternal) Throat cancer Myocardial infarction Grandfather (Maternal) Myocardial infarction Other Coronary heart disease Diabetes No pertinent family history Denies family history of Ovarian cancer Prostate cancer Breast cancer Colorectal cancer Social History Smoking Status: Former smoker Tobacco Type: Cigarettes Cigarettes Per Day: 1 Pack; Second Hand Exposure: No; Hx Alcohol Use: Yes Hx Substance Use: Yes Prescribed Medications: Marijuana Last Used Substance: Days (ago) Last Used Substance Other:: occasionally Preferred Language: Somali Communication Ability: Effective Rn Procedures Required: No Beliefs That Will Affect Care: None marital status: Current Living Situation: Spouse Current Living Situation Comment: Home current occupational status: disabled How many Children do You have: 2 other: caregiver, 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 Feels Safe at Home: Yes Physical Activity Frequency: Does not Exercise Seatbelt Use: always Sunscreen Use: Yes Assistive Devices: Wheelchair Physical Exam Physical Exam: No distress. BP normotensive. Pulse 80 bpm and regular. Skin: no ecchymoses or generalized lesions. HEENT: unremarkable. Neck: Jugular venous pulse care home to the angle of the jaw at 90 degrees, no carotid bruits. Lungs: clear bilaterally. Cardiac: regular rhythm, distant heart tones due to habitus, intact S1 and S2, no obvious murmur or gallop. Abdomen: benign. Extremities: BKA left leg, right leg with well demarcated erythema reaching nearly to the knee, foot is warm with good capillary refill. Neurologic: normal affect and conversation, nonfocal. Results & Data ([facility]) Laboratory Results Troponin value since admission as follows: 46 235 162 BNP on admission 21. Sodium 134, potassium 3.6, BUN 24, creatinine 1.14. Diagnostic Findings ECG on admission showed sinus tachycardia with incomplete right bundle branch block, possible old inferior infarct, low voltage QRS. ECG yesterday showed sinus rhythm with old inferior infarct, no ST or T wave abnormalities. ECG today showed sinus rhythm with possible old inferior infarct, no ST or T wave abnormalities. Chest x-ray showed cardiomegaly with pulmonary vascular congestion and mild bibasilar atelectasis. Venous Doppler study showed no DVT of the right lower extremity. Echocardiogram July 2021 was very technically limited and showed mildly dilated left ventricle with mild LVH, unable to assess LV systolic function but it appeared likely normal or mildly reduced. No obvious valvular pathology on limited Doppler due to technical considerations. PG Care Time/CCT Total # of Minutes Spent Total Time Spent with Patient: Total time spent is greater than 50% in coordination of care (as documented) at patient's floor/unit and/or counseling patient: Coding Level of Care Code 48830 Inpt Consult Level 4 Diagnoses Chest pain R07.9 Elevated troponin R77.8 History of CHF (congestive heart failure) Z86.79 History of deep venous thrombosis Z86.718 Morbid obesity with BMI of 50.0-59.9, adult E66.01; Z68.43
[2022-09-12] MEDS ORDERED: LANTUS PER UNIT CHARGE SQ ONE (09:00)
--- NOTE | 2022-09-12 09:09 | Electrocardiogram Report ---
Test Reason : Blood Pressure : / mmHG Vent. Rate : 086 BPM Atrial Rate : 086 BPM P-R Int : 186 ms QRS Dur : 102 ms QT Int : 384 ms P-R-T Axes : 078 059 033 degrees QTc Int : 459 ms Normal sinus rhythm Low voltage QRS Possible Old Inferior infarct (cited on or before 10-SEP-2022) Abnormal ECG When compared with ECG of 11-SEP-2022 04:53, No significant change was found Confirmed by Tristen Parra ([id number]) on 09/12/2022 9:09:20 AM Referred By: REFERRED SELF Confirmed By:Tristen Parra
--- NOTE | 2022-09-12 10:21 | Hospitalist Progress Note ---
Date of Service September 12, 2022 Assessment & Plan (1) Cellulitis: Plan: Improving WBC however procalcitonin worse today despite broad spectrum antibiotics with daptomycin and cefepime. Erythema much improved in ankle but still significant with dependant edema in thigh. Blood cultures negative after 48 hours Cellulitis of right lower extremity secondary to fluid leakage- Continue daptomycin IV and cefepime IV Needs adequate diuresis for healing - continue to maintain a negative balance (2) Chest pain: Plan: Low suspicion of cardiac cause. Heparin drip discontinued as he had Xarelto yesterday. Cardiology consulted and will restart on heparin IV when his next Xarelto dose is due. EKG with chest pain. (3) Volume overload: Plan: Currently appears euvolemic but with pitting edema likely mostly secondary to venous insufficiency Volume overload/lymphedema/CHF/hypertension- Will switch bumex back to his usual PO dosing but also try to maintain slight negative balance on this. Follow serial BMP and magnesium levels (4) Lymphedema: (5) CHF (congestive heart failure): (6) Elevated troponin: Plan: Suspected demand-ischemia Cardiology consult pending (7) Hypertension: (8) Dyslipidemia: Plan: Continue rosuvastatin 20 mg daily (9) Diabetes type 2, uncontrolled: Plan: Appreciate pharmacy for glycemic control. HbA1c 6.7 (10) Diabetic peripheral neuropathy associated with type 2 diabetes mellitus: Plan: Continue topiramate and gabapentin (11) Depression: Plan: Continue doxepin, fluoxetine, gabapentin and hydroxyzine Plan VTE prophylaxis - Xarelto on hold for heparin IV drip Diet - heart healthy, type 2 diabetes, low-sodium Disposition - continued admission to PCU Admission and Anticipated Discharge Date Admission Date: September 10, 2022 Subjective Unable to give me a good history of his "chest pain". He reports this was more a feeling of something in between his ribs and his skin. Associated shortness of breath but no nausea. Cannot reproduce on palpation. No worse on exertion or position. No radiation. Intermittent since last night but unable to tell me how long each episode last for. He generally feels just as bad as when he first came in. Review of Systems Review of Systems: All systems reviewed & are unremarkable except as noted in Subjective Physical Exam Constitutional: WD/WN, vitals as above Respiratory: normal respiratory effort, lungs clear to auscultation Cardiovascular: Rate/Rhythm: regular rate and regular rhythm Heart Sounds: no murmur Extremities: + pedal edema (left 3+ pitting) Gastrointestinal (Abdomen): normal bowel sounds, soft, nontender, no hepatosplenomegaly Skin: Erythema from left foot to back of thigh. Appears less erythematous in foot, no change in thigh. Psychiatric: A+Ox3, euthymic affect Results & Data Results & Data ([facility]) Vital Signs (Past 12 Hours) Vital Signs Temp Pulse Resp BP BP Pulse Ox O2 Del Method 09/12/22 07:35 36.5 C 78 18 105/64 92 Room Air 09/12/22 04:25 36.6 C 82 146/78 H 94 Room Air 09/12/22 02:34 128/74 09/12/22 01:44 19 157/63 H 90 Nasal Cannula 09/12/22 01:33 81 155/40 H Nasal Cannula 09/12/22 01:22 84 148/74 H 93 Nasal Cannula 09/12/22 01:06 85 10 L 118/65 91 Nasal Cannula 09/12/22 00:55 83 134/73 95 Nasal Cannula 09/11/22 23:26 37 C 79 92 Room Air 09/11/22 23:05 82 101/57 L 94 Room Air 09/11/22 22:48 85 120/69 O2 Flow Rate 09/12/22 07:35 09/12/22 04:25 2 09/12/22 02:34 09/12/22 01:44 2 09/12/22 01:33 2 09/12/22 01:22 2 09/12/22 01:06 2 09/12/22 00:55 2 09/11/22 23:26 09/11/22 23:05 09/11/22 22:48 PG Care Time/CCT Total # of Minutes Spent Total Time Spent with Patient: Total time spent is greater than 50% in coordination of care (as documented) at patient's floor/unit and/or counseling patient: Coding Level of Care Code 09729 Subseq Hosp Care Lvl 3 Diagnoses Cellulitis L03.115 Laterality: right Site of cellulitis: extremity Site of cellulitis of extremity: lower extremity Chest pain R07.9 Volume overload E87.70 Lymphedema I89.0 CHF (congestive heart failure) I50.9 Elevated troponin R77.8 Hypertension I10 Dyslipidemia E78.5 Diabetes type 2, uncontrolled E11.65 Diabetic peripheral neuropathy associated with type 2 diabetes mellitus E11.42 Depression F32.9 (1) Cellulitis Laterality: right Site of cellulitis: extremity Site of cellulitis of extremity: lower extremity Qualified Code(s): L03.115 - Cellulitis of right lower limb
--- NOTE | 2022-09-12 11:00 | Pharmacy Report ---
Pharmacy Glycemic Short Note 2 - Date of Service September 12, 2022 - Glycemic Short BSG Results (Last 24 hours): 09/11/22 09/11/22 09/11/22 11:12 16:19 19:58 Glucose POC Glucose 184 H 131 H 129 H 09/12/22 09/12/22 05:26 05:29 Glucose 144 H POC Glucose 130 H OUTPATIENT ANTIDIABETIC REGIMEN: * U-500 insulin, 120 units SC TIDM * Tirzepatide 5 mg SC weekly * HbA1c = 6.7% (09/11/22) ASSESSMENT: 09/12: * Wyatt received a total of 124 units of insulin yesterday, 80 units basal + 44 units bolus. BSGs were: 466-768-775-129 mg/dL. * Fasting BSG this AM was 130 mg/dL. Patients Lantus was reduced from 50 units to 30 units last evening for NPO status. He remains NPO this morning given chest pain and elevated troponin. Will continue with Lantus 30 units this AM. If diet ordered, return to 50 units. * No change to Novolog. On a heparin gtt now. 09/10: * is a 52 year old male, known to pharmacy glycemic service. Automatic pharmacy glycemic consult generated due to provider ordering home U-500 insulin. We have utilized SC basal/bolus regimen while inpatient in the past and will plan to do that again. * Admitted for RLE cellulitis, initiated on daptomycin and cefepime * Last admission in May of 2022, at that time patient received ~100 units of basal/day and 50-80 units bolus/day * Will order initial doses based on the regimen last admission * Pertinent PMH includes, poorly controlled T2DM (follows with [facility]), morbid obesity, hx of diabetic foot ulcers with L BKA PLAN FOR INPATIENT GLYCEMIC CONTROL: * Basal insulin * Lantus 50 units SC BID (if NPO, 30 units SC BID) * Bolus insulin * NovoLog per scale ACHS or Q6hrs while NPO * Goal Range: Low 110 mg/dL - High 140 mg/dL * Correction Factor: 6 mg/dL/unit with breakfast, 10 mg/dL/unit with lunch, dinner, HS * Nutritional / Prandial insulin per carb ratio of 1 unit per 3 grams CHO consumed at breakfast, 4 with lunch, dinner, HS
--- NOTE | 2022-09-12 13:09 | XRay Report ---
XR chest 1V portable CLINICAL HISTORY: chest pain TECHNIQUE: Single frontal radiograph of the chest was obtained. Comparison: Comparison is made to chest radiograph 09/10/2022 FINDINGS: Exam is limited by underpenetration. Cardiomegaly is noted. The lungs are clear. No evidence of pleur al effusion or pneumothorax. IMPRESSION: No acute chest disease. ACT 112: Negative or not required by law. Electronically signed by: Aroldo Levy M.D. 09/12/2022 1:08 PM
--- NOTE | 2022-09-12 15:25 | Electrocardiogram Report ---
Test Reason : Blood Pressure : / mmHG Vent. Rate : 081 BPM Atrial Rate : 081 BPM P-R Int : 188 ms QRS Dur : 102 ms QT Int : 404 ms P-R-T Axes : 073 056 025 degrees QTc Int : 469 ms Sinus rhythm with occasional Premature ventricular complexes Possible Old Inferior-posterior infarct (cited on or before 10-SEP-2022) Abnormal ECG When compared with ECG of 11-SEP-2022 20:46, Premature ventricular complexes are now Present Confirmed by Tristen Parra ([id number]) on 09/12/2022 3:25:46 PM Referred By: REFERRED SELF Confirmed By:Tristen Parra
[2022-09-12] MEDS: CHOLECALCIFEROL 5,000 UNITS 125 MCG TAB PO SCH (15:48)
[2022-09-12] MEDS: GABAPENTIN 600 MG TAB PO SCH ×4 (15:48→20:13)
[2022-09-12] MEDS: CHOLESTYRAMINE LIGHT 4 GM PKT PO SCH ×2 (15:49→21:32)
[2022-09-12] MEDS: lisinopril 2.5 MG TAB PO SCH (15:50)
[2022-09-12] MEDS: METOPROLOL TARTRATE 50 MG TAB PO SCH (15:50)
[2022-09-12] MEDS: MULTIVITAMIN TAB PO SCH (15:50)
[2022-09-12] MEDS: CETIRIZINE HCL 10 MG TABLET PO SCH (15:50)
[2022-09-12] MEDS: FLUoxetine HCL 20 MG CAP PO SCH (15:50)
[2022-09-12] MEDS: LIDOCAINE 5% 1 PATCH TD SCH (15:51)
[2022-09-12 18:50] LABS: Partial Thromboplastin Ratio 1.1; Partial Thromboplastin Time 31.3 Seconds (21.0-31.0)
[2022-09-12] MEDS ORDERED: HEPARIN 25000 UNIT/500 ML D5W IV ONE (19:04)
[2022-09-12] MEDS: HEPARIN SODIUM/DEXTROSE 25,000 UNITS/500 ML BAG IV SCH (19:05)
[2022-09-12] MEDS: Heparin IV Adult Wt-Based Standard *NO* Bolus Protocol IV SCH ×3 (19:08→20:52)
[2022-09-12] MEDS: TOPIRAMATE 25 MG TAB PO SCH (20:13)
[2022-09-12] MEDS: DOXEPIN HCL 10 MG CAPSULE PO SCH (20:13)
[2022-09-12] MEDS: LANTUS PER UNIT CHARGE SQ SCH (20:14)
[2022-09-13] MEDS: ACETAMINOPHEN 325 MG TAB PO PRN (00:04)
[2022-09-13 01:11] LABS: Basophils # (auto) 0.03 K/uL (0-0.2); Basophils % (auto) 0.3 %; Eosinophils # (auto) 0.57 K/uL (0-0.50); Eosinophils % (auto) 5.9 %; Hematocrit (blood only) 34.8 % (40.1-51.0); Hemoglobin 11.6 g/dl (14.0-18.0); Immature Granulocytes # (auto) 0.06 K/uL (0.00-0.02); Immature Granulocytes % (auto) 0.6 %; Lymphocytes # (auto) 2.03 K/uL (1.2-3.4); Lymphocytes % (auto) 20.9 %; Mean Corpuscular Hemoglobin 29.8 pg (25.0-34.0); Mean Corpuscular Hgb Conc 33.3 g/dL (32.0-36.0); Mean Corpuscular Volume 89.5 fL (80.0-100.0); Mean Platelet Volume 9.9 fL (9.4-12.4); Monocytes # (auto) 0.96 K/uL (0.24-0.82); Monocytes % (auto) 9.9 %; Neutrophils # (auto) 6.05 K/uL (1.4-6.5); Neutrophils % (auto) 62.4 %; Platelet Count 203 K/uL (130-400); RDW Standard Deviation 45.6 fL (36.4-46.3); Red Blood Count 3.89 M/uL (4.63-6.08)
[2022-09-13 01:35] LABS: Albumin Globulin Ratio 0.9 (0.9-2); Albumin Level 3.4 gm/dl (3.4-5.0); Bilirubin,Total 0.5 mg/dl (0.2-1.0); Calcium 8.1 mg/dl (8.5-10.1); Est GFR (African American) 87.7 ml/min; Est GFR (Non-African American) 75.7 ml/min; Globulin 3.7 gm/dl (2.5-4.0); Magnesium 1.9 mg/dl (1.7-2.4); Potassium 3.5 mmol/L (3.5-5.1); Total Protein 7.1 gm/dl (6.0-8.3)
[2022-09-13 01:44] LABS: Partial Thromboplastin Ratio 1.8
[2022-09-13 01:53] LABS: Partial Thromboplastin Time 48.5 Seconds (21.0-31.0)
[2022-09-13] MEDS: DAPTOmycin 525 MG in SYRINGE 0 ML IV SCH (05:09)
[2022-09-13] MEDS: CEFEPIME 2,000 MG in SYRINGE 0 ML IV SCH ×2 (05:10→16:56)
[2022-09-13] MEDS: HEPARIN SODIUM/DEXTROSE 25,000 UNITS/500 ML BAG IV SCH ×2 (05:14→17:04)
[2022-09-13] MEDS: INSULIN ASPART PER UNIT SC SCH ×4 (08:50→20:20)
[2022-09-13] MEDS: LANTUS PER UNIT CHARGE SQ SCH ×2 (08:51→20:35)
[2022-09-13] MEDS: GABAPENTIN 600 MG TAB PO SCH ×3 (08:52→19:49)
[2022-09-13] MEDS: MULTIVITAMIN TAB PO SCH (08:53)
[2022-09-13] MEDS: BUMETANIDE 4 MG in SYRINGE 0 ML IV SCH ×2 (08:53→16:54)
--- NOTE | 2022-09-13 08:59 | Cardiology Progress Note ---
Date of Service September 13, 2022 Assessment & Plan (1) Chest pain: (2) Elevated troponin: (3) History of CHF (congestive heart failure): (4) History of deep venous thrombosis: (5) Morbid obesity with BMI of 50.0-59.9, adult: Plan 1. Chest pain: Very atypical and fleeting episode last evening. The evening prior he had a fairly severe and prolonged episode. He did have a mild elevation in his biomarkers, but I think this would have been more significant where this really an ischemic event. I would agree with Dr. Parra at this point I think his heparin can be discontinued in favor of resuming his rivaroxaban. We could continue the heparin until dinnertime at which point he could be discontinued and he could take his scheduled dose of rivaroxaban this evening. 2. Heart failure with preserved ejection fraction: Very difficult to assess given his body habitus and lack of mobility. However, his lung examination appears benign. Given his significant edema he is on an aggressive diuretic regimen. Renal function appears to be stable and this can be continued cu rrently. At this point cardiology will sign off. Please call with additional questions or concerns during this hospitalization. Admission and Anticipated Discharge Date Admission Date: September 10, 2022 Subjective The patient reports having a better night last evening and the night prior. He did report a brief episode of chest discomfort, he states that this was fairly mild, lasted only a few minutes and resolved when he rolled over on his right side. He admits that he may have been very anxious about additional episodes of chest pain last evening. Unfortunately, he has not been very ambulatory. He continues to complain of dyspnea even at rest. He states this is a chronic issue and that he "feels short of breath all of the time". Tolerating breakfast without any abdominal complaints or chest pains. No pleuritic chest pain. Review of Systems Review of Systems: Per HPI Physical Exam Physical Exam: No distress. Morbidly obese BP normotensive. Pulse 80 bpm and regular. Skin: no ecchymoses or generalized lesions. HEENT: unremarkable. Lungs: clear bilaterally. No rales Cardiac: regular rhythm, distant heart tones due to habitus, intact S1 and S2, no obvious murmur or gallop. Abdomen: benign. Extremities: BKA left leg, right leg with well demarcated erythema reaching nearly to the knee, foot is warm with good capillary refill. Neurologic: normal affect and conversation, nonfocal. Results & Data ([facility]) Vital Signs (Past 12 Hours) Vital Signs Temp Pulse Pulse Resp BP BP Pulse Ox 09/13/22 07:42 36.6 C 66 20 121/68 95 09/13/22 06:09 70 09/13/22 03:00 36.6 C 65 20 107/58 L 91 09/12/22 22:55 68 09/12/22 22:49 36.9 C 73 18 112/67 92 O2 Del Method O2 Flow Rate 09/13/22 07:42 Room Air 09/13/22 06:09 09/13/22 03:00 Room Air 09/12/22 22:55 09/12/22 22:49 Nasal Cannula 2 Laboratory Results Abnormal Lab Results 09/12/22 09/12/22 09/12/22 10:25 10:25 10:59 WBC RBC Hgb Hct MCV MCH MCHC RDW Std Deviation RDW Coeff of Wil Plt Count MPV Immature Gran % (Auto) Neut % (Auto) Lymph % (Auto) Trinity % (Auto) Eos % (Auto) Baso % (Auto) Neut # (Auto) Lymph # (Auto) Trinity # (Auto) Eos # (Auto) Baso # (Auto) Immature Gran # (Auto) APTT PTT Ratio Sodium Potassium Chloride Carbon Dioxide Anion Gap BUN Creatinine Est Cr Clr Drug Dosing Est GFR ( Amer) Est GFR (Non-Af Amer) BUN/Creatinine Ratio Glucose POC Glucose 135 H Calcium Magnesium Total Bilirubin AST ALT Alkaline Phosphatase Troponin I High Sens 147.4 H* Total Protein Albumin Globulin Albumin/Globulin Ratio Procalcitonin 3.52 H 09/12/22 09/12/22 09/12/22 16:39 18:25 20:02 WBC RBC Hgb Hct MCV MCH MCHC RDW Std Deviation RDW Coeff of Wil Plt Count MPV Immature Gran % (Auto) Neut % (Auto) Lymph % (Auto) Trinity % (Auto) Eos % (Auto) Baso % (Auto) Neut # (Auto) Lymph # (Auto) Trinity # (Auto) Eos # (Auto) Baso # (Auto) Immature Gran # (Auto) APTT 31.3 H PTT Ratio 1.1 Sodium Potassium Chloride Carbon Dioxide Anion Gap BUN Creatinine Est Cr Clr Drug Dosing Est GFR ( Amer) Est GFR (Non-Af Amer) BUN/Creatinine Ratio Glucose POC Glucose 122 H 137 H Calcium Magnesium Total Bilirubin AST ALT Alkaline Phosphatase Troponin I High Sens Total Protein Albumin Globulin Albumin/Globulin Ratio Procalcitonin 09/13/22 09/13/22 09/13/22 00:58 00:58 00:58 WBC 9.70 RBC 3.89 L Hgb 11.6 L Hct 34.8 L MCV 89.5 MCH 29.8 MCHC 33.3 RDW Std Deviation 45.6 RDW Coeff of Wil 14.0 Plt Count 203 MPV 9.9 Immature Gran % (Auto) 0.6 Neut % (Auto) 62.4 Lymph % (Auto) 20.9 Trinity % (Auto) 9.9 Eos % (Auto) 5.9 Baso % (Auto) 0.3 Neut # (Auto) 6.05 Lymph # (Auto) 2.03 Trinity # (Auto) 0.96 H Eos # (Auto) 0.57 H Baso # (Auto) 0.03 Immature Gran # (Auto) 0.06 H APTT 48.5 H* PTT Ratio 1.8 Sodium 134 L Potassium 3.5 Chloride 100 Carbon Dioxide 29 Anion Gap 5 BUN 22 Creatinine 1.10 Est Cr Clr Drug Dosing 140.0 Est GFR ( Amer) 87.7 Est GFR (Non-Af Amer) 75.7 BUN/Creatinine Ratio 20.0 Glucose 123 H POC Glucose Calcium 8.1 L Magnesium 1.9 Total Bilirubin 0.5 AST 17 ALT 12 Alkaline Phosphatase 61 Troponin I High Sens Total Protein 7.1 Albumin 3.4 Globulin 3.7 Albumin/Globulin Ratio 0.9 Procalcitonin PG Care Time/CCT Total # of Minutes Spent Total Time Spent with Patient: Total time spent is greater than 50% in coordination of care (as documented) at patient's floor/unit and/or counseling patient: Coding Level of Care Code 56277 Subseq Hosp Care Lvl 2 Diagnoses Chest pain R07.9 Elevated troponin R77.8 History of CHF (congestive heart failure) Z86.79 History of deep venous thrombosis Z86.718 Morbid obesity with BMI of 50.0-59.9, adult E66.01; Z68.43
[2022-09-13] MEDS: FLUoxetine HCL 20 MG CAP PO SCH (09:54)
[2022-09-13] MEDS: CHOLECALCIFEROL 5,000 UNITS 125 MCG TAB PO SCH (09:54)
[2022-09-13] MEDS: CETIRIZINE HCL 10 MG TABLET PO SCH (09:54)
[2022-09-13] MEDS: lisinopril 2.5 MG TAB PO SCH (09:54)
[2022-09-13] MEDS: METOPROLOL TARTRATE 50 MG TAB PO SCH (09:54)
[2022-09-13] MEDS: CHOLESTYRAMINE LIGHT 4 GM PKT PO SCH ×2 (09:54→19:48)
[2022-09-13] MEDS: LIDOCAINE 5% 1 PATCH TD SCH (09:55)
[2022-09-13] MEDS ORDERED: RIVAROXABAN 20 MG TAB PO ONE (17:45)
[2022-09-13] MEDS: TOPIRAMATE 25 MG TAB PO SCH (19:48)
[2022-09-13] MEDS: DOXEPIN HCL 10 MG CAPSULE PO SCH (19:48)
[2022-09-13] MEDS: oxyCODONE HCL IR 5 MG TAB (IMMEDIATE RELEASE) PO PRN (19:56)
--- NOTE | 2022-09-13 20:52 | Hospitalist Progress Note ---
Date of Service September 13, 2022 Assessment & Plan (1) Cellulitis: Plan: RLE - clinically improved. Can likely d/c IV daptomycin and IV cefepime tomorrow AM and transition to PO abx. Cont diuresis with bumex. (2) Chest pain: Plan: [place] to be non-ischemic. Appreciate cardiology consultation and recs. Heparin drip to be stopped today, transition back to PO xarelto. Pain due to chest tightness from pulmonary edema? (3) Volume overload: Plan: cont IV bumex BID. change back to PO bumex tomorrow. (4) Lymphedema: Plan: chronic. cont bumex. would benefit from compressive therapy. (5) CHF (congestive heart failure): Plan: acute/chronic diastolic CHF. volume status improving. cont IV bumex today. (6) Elevated troponin: Plan: Likely 2nd to myocardial demand-ischemia Cardiology consult appreciated Mild trop elevation unlikely to be from ACS (7) Hypertension: Plan: Cont metoprolol Cont bumex (8) Dyslipidemia: Plan: Hold rosuvastatin 20 mg daily while on IV daptomycin (9) Diabetes type 2, uncontrolled: Plan: Appreciate pharmacy for glycemic control HbA1c 6.7% Remains on lantus BID and novolog SSI (10) Diabetic peripheral neuropathy associated with type 2 diabetes mellitus: Plan: Continue topiramate and gabapentin (11) Depression: Plan: Continue doxepin, fluoxetine (12) History of deep venous thrombosis: Plan: Change back to Xarelto 20mg daily (13) Morbid obesity with BMI of 50.0-59.9, adult: Plan: BMI 55 (14) Below-knee amputation of left lower extremity: Plan stop heparin drip tonight change back to Xarelto home tomorrow? Admission and Anticipated Discharge Date Admission Date: September 10, 2022 Subjective patient sitting in chair by the window feels much better today redness and discomfort of right leg much improved his breathing is better - feels like he can take larger breaths chest pain markedly improved tele overnight wnl eating well hoping to go home soon making copious urine from IV bumex Review of Systems Review of Systems: gen - no fevers cv - chest pain resolved pulm - dyspnea improved; no cough GI - no nausea/emesis Physical Exam Physical Exam: gen - morbidly obese, NAD neck - no JVD sitting at 90 degrees in chair mouth - MMM heart - RRR, s1 s2, no murmur lungs - decreased BS bases, otherwise CTA b/l abd - soft NT ND BS+ ext - left BKA; right leg with chronic appearing edema, about 2-3+, from foot to the right thigh skin - venous stasis changes/hyperpigmentation of right harkins; no cellulitis present of right leg today Results & Data Results & Data ([facility]) Vital Signs (Past 12 Hours) Vital Signs Temp Pulse Pulse Resp BP BP Pulse Ox 09/13/22 19:00 36.7 C 70 18 129/73 93 09/13/22 14:16 61 09/13/22 15:12 36.6 C 65 20 106/68 96 09/13/22 11:31 36.5 C 66 20 118/72 97 O2 Del Method 09/13/22 19:00 Room Air 09/13/22 14:16 09/13/22 15:12 Room Air 09/13/22 11:31 Room Air Laboratory Results Laboratory Results - last 24 hr 09/13/22 09/13/22 09/13/22 00:58 00:58 00:58 WBC 9.70 RBC 3.89 L Hgb 11.6 L Hct 34.8 L MCV 89.5 MCH 29.8 MCHC 33.3 RDW Std Deviation 45.6 RDW Coeff of Wil 14.0 Plt Count 203 MPV 9.9 Immature Gran % (Auto) 0.6 Neut % (Auto) 62.4 Lymph % (Auto) 20.9 [place] % (Auto) 9.9 Eos % (Auto) 5.9 Baso % (Auto) 0.3 Neut # (Auto) 6.05 Lymph # (Auto) 2.03 [place] # (Auto) 0.96 H Eos # (Auto) 0.57 H Baso # (Auto) 0.03 Immature Gran # (Auto) 0.06 H APTT 48.5 H* PTT Ratio 1.8 Sodium 134 L Potassium 3.5 Chloride 100 Carbon Dioxide 29 Anion Gap 5 BUN 22 Creatinine 1.10 Est Cr Clr Drug Dosing 140.0 Est GFR ( Amer) 87.7 Est GFR (Non-Af Amer) 75.7 BUN/Creatinine Ratio 20.0 Glucose 123 H POC Glucose Calcium 8.1 L Magnesium 1.9 Total Bilirubin 0.5 AST 17 ALT 12 Alkaline Phosphatase 61 Total Protein 7.1 Albumin 3.4 Globulin 3.7 Albumin/Globulin Ratio 0.9 09/13/22 09/13/22 09/13/22 07:29 11:17 16:29 WBC RBC Hgb Hct MCV MCH MCHC RDW Std Deviation RDW Coeff of Wil Plt Count MPV Immature Gran % (Auto) Neut % (Auto) Lymph % (Auto) [place] % (Auto) Eos % (Auto) Baso % (Auto) Neut # (Auto) Lymph # (Auto) App[place] # (Auto) Eos # (Auto) Baso # (Auto) Immature Gran # (Auto) APTT PTT Ratio Sodium Potassium Chloride Carbon Dioxide Anion Gap BUN Creatinine Est Cr Clr Drug Dosing Est GFR ( Amer) Est GFR (Non-Af Amer) BUN/Creatinine Ratio Glucose POC Glucose 137 H 140 H 100 H Calcium Magnesium Total Bilirubin AST ALT Alkaline Phosphatase Total Protein Albumin Globulin Albumin/Globulin Ratio 09/13/22 20:07 WBC RBC Hgb Hct MCV MCH MCHC RDW Std Deviation RDW Coeff of Wil Plt Count MPV Immature Gran % (Auto) Neut % (Auto) Lymph % (Auto) [place] % (Auto) Eos % (Auto) Baso % (Auto) Neut # (Auto) Lymph # (Auto) [place] # (Auto) Eos # (Auto) Baso # (Auto) Immature Gran # (Auto) APTT PTT Ratio Sodium Potassium Chloride Carbon Dioxide Anion Gap BUN Creatinine Est Cr Clr Drug Dosing Est GFR ( Amer) Est GFR (Non-Af Amer) BUN/Creatinine Ratio Glucose POC Glucose 95 Calcium Magnesium Total Bilirubin AST ALT Alkaline Phosphatase Total Protein Albumin Globulin Albumin/Globulin Ratio PG Care Time/CCT Total # of Minutes Spent Total Time Spent with Patient: Total time spent is greater than 50% in coordination of care (as documented) at patient's floor/unit and/or counseling patient: Coding Level of Care Code 64471 Subseq Hosp Care Lvl 2 Diagnoses Cellulitis L03.115 Laterality: right Site of cellulitis: extremity Site of cellulitis of extremity: lower extremity Chest pain R07.9 Volume overload E87.70 Lymphedema I89.0 CHF (congestive heart failure) I50.9 Elevated troponin R77.8 Hypertension I10 Dyslipidemia E78.5 Diabetes type 2, uncontrolled E11.65 Diabetic peripheral neuropathy associated with type 2 diabetes mellitus E11.42 Depression F32.9 History of deep venous thrombosis Z86.718 Morbid obesity with BMI of 50.0-59.9, adult E66.01; Z68.43 Below-knee amputation of left lower extremity S88.112A (1) Cellulitis Laterality: right Site of cellulitis: extremity Site of cellulitis of extremity: lower extremity Qualified Code(s): L03.115 - Cellulitis of right lower limb
[2022-09-14] MEDS: CEFEPIME 2,000 MG in SYRINGE 0 ML IV SCH (05:10)
[2022-09-14] MEDS: DAPTOmycin 525 MG in SYRINGE 0 ML IV SCH (05:12)
[2022-09-14] MEDS: ACETAMINOPHEN 325 MG TAB PO PRN (05:22)
[2022-09-14 07:01] LABS: BUN Creatinine Ratio 20.2 (10-20); Calcium 8.6 mg/dl (8.5-10.1); Est GFR (African American) 99.7 ml/min; Potassium 3.2 mmol/L (3.5-5.1)
[2022-09-14] MEDS: GABAPENTIN 600 MG TAB PO SCH ×3 (08:24→19:47)
[2022-09-14] MEDS: BUMETANIDE 4 MG in SYRINGE 0 ML IV SCH ×2 (08:24→17:11)
[2022-09-14] MEDS: MULTIVITAMIN TAB PO SCH (08:25)
[2022-09-14] MEDS: lisinopril 2.5 MG TAB PO SCH (08:25)
[2022-09-14] MEDS: FLUoxetine HCL 20 MG CAP PO SCH (08:25)
[2022-09-14] MEDS: CHOLECALCIFEROL 5,000 UNITS 125 MCG TAB PO SCH (08:25)
[2022-09-14] MEDS: CETIRIZINE HCL 10 MG TABLET PO SCH (08:25)
[2022-09-14] MEDS: METOPROLOL TARTRATE 50 MG TAB PO SCH (08:25)
[2022-09-14] MEDS: INSULIN ASPART PER UNIT SC SCH ×4 (08:34→20:28)
[2022-09-14] MEDS: LIDOCAINE 5% 1 PATCH TD SCH (08:37)
[2022-09-14] MEDS ORDERED: LANTUS PER UNIT CHARGE SQ SCH ×2 (09:00→21:00)
[2022-09-14] MEDS ORDERED: POTASSIUM CHLORIDE CRTAB 20 MEQ TABCR PO STA (09:17)
[2022-09-14] MEDS: CHOLESTYRAMINE LIGHT 4 GM PKT PO SCH ×2 (11:07→19:46)
[2022-09-14] MEDS ORDERED: OPTIRAY 320 500ml IV ONE (14:37)
--- NOTE | 2022-09-14 15:00 | CT Scan Report ---
CT angio chest PE protocol CT DOSE: 969.06 mGy.cm HISTORY: 52 years-old Male with h/o multiple DVTs; pleuritic CP, dyspnea; r/o PE. Acute chest pain TECHNIQUE: Multiple CTA images of the chest were obtained after the intravenous administration of 107 ml Optiray. Coronal and sagittal MIPS were obtained from the axial data set and were submitted for review. All measurements were obtained according to NASCET criteria. A dose lowering technique was u tilized adhering to the principles of ALARA. COMPARISON: Chest CT 07/31/2021, CTA chest 06/07/2015. FINDINGS: CTA: The heart is upper limits of normal in size with extensive coronary artery calcifications. Unremarkab le thoracic aorta. Reflux of contrast into the IVC and hepatic veins. Mild linear pulmonary emboli ar e noted within segmental and subsegmental branches of the right lower lobe. No central pulmonary embo li are identified. CT CHEST: Unremarkable thyroid. No lymphadenopathy identified. The inferior lung bases are only partially image d. No pneumothorax, pleural effusion or overt pulmonary edema. Mild linear subsegmental bibasilar ate lectasis. 3 mm subpleural nodule of the right middle lobe on image 119, likely benign. No suspicious pulmonary nodules or masses are identified. Central airways are patent. No acute process of the imaged upper abdomen. Hepatic steatosis. Unremarkable soft tissues. No acute fracture. Degenerative changes of the spine. IMPRESSION: 1. Linear segmental and subsegmental pulmonary emboli of the right lower lobe appear to be nonocclusi ve and are technically age-indeterminate, possibly chronic. 2. Extensive coronary artery calcifications. 3. No pleural effusion or airspace consolidation. ACT 112: Negative or not required by law. The above report was generated using voice recognition software. It may contain grammatical, syntax o r spelling errors. Electronically signed by: Jamey Dent M.D. 09/14/2022 2:57 PM
[2022-09-14] MEDS ORDERED: HEPARIN SOD (PORCINE) 1000 UNIT/ML IV ONE (16:43)
[2022-09-14 17:22] LABS: Partial Thromboplastin Ratio 1.1; Partial Thromboplastin Time 31.6 Seconds (21.0-31.0)
[2022-09-14] MEDS: HEPARIN SODIUM/DEXTROSE 25,000 UNITS/500 ML BAG IV SCH (18:28)
[2022-09-14] MEDS: Heparin IV Adult Wt-Based Standard WITH Bolus Protocol IV SCH ×2 (18:33→18:34)
[2022-09-14] MEDS: TOPIRAMATE 25 MG TAB PO SCH (19:46)
[2022-09-14] MEDS: DOXEPIN HCL 10 MG CAPSULE PO SCH (19:46)
--- NOTE | 2022-09-14 20:29 | Hospitalist Progress Note ---
Date of Service September 14, 2022 Assessment & Plan (1) Cellulitis: Plan: RLE - clinically improved/resolved. d/c IV daptomycin and IV cefepime. change to keflex TID x 5 days and doxycycline BID x 5 days. Cont diuresis with bumex. (2) Pulmonary emboli: Plan: I obtained CTA chest today due to ongoing complaints of dyspnea on exertion along with chest pain. There are RLL pulmonary emboli, possibly chronic. [id number] he has these despite use of Xarelto for several years. Although the PEs are present these likely only partially explain his dyspnea on exertion. (see below) Given the recurrent DVT episodes he has had over the years (5 or more episodes) along with these PEs and his morbid obesity (BMI 55) he is a poor DOAC candidate. I explained this in detail to patient and his . Ideally he should be on lifelong coumadin. To that end restart heparin drip standard dosing. Hold off on starting coumadin today (see #3 below). (3) Dyspnea on exertion: Plan: although CTA chest shows RLL pulmonary emboli I suspect this is only 1 component of his LUNA I am concerned that ischemic heart disease/CAD could be contributing to dyspnea in light of associated chest pain I can't rule out pulmonary HTN see #4 below (4) Chest pain: Plan: Although there are RLL pulmonary emboli - possibly chronic - I do not feel these are the cause of his chest pain episodes. He has extensive coronary calcifications on CT chest today. Has numerous CAD risk factors. Given the ongoing LUNA along with chest pain I spoke with Dr Espitia from cardiology today. Consideration is being given to pursuing L heart cath to r/o CAD. Right heart cath also may be pursued to check right heart pressures/pa pressures given the reflux of IV contrast into the IVC and hepatic veins (suggestive of elevated R heart pressure). Dr Espitia to discuss this further with interventionalist tomorrow. Cont heparin drip in meantime. (5) Volume overload: Plan: no pulmonary edema on CTA chest today. [id number] he continues with significant diuresis on IV bumex BID. suspect he has right-sided CHF - most of his edema is LE edema, etc. see #3 above. (6) Lymphedema: Plan: chronic. cont bumex. would benefit from compressive therapy down the line. (7) CHF (congestive heart failure): Plan: acute/chronic diastolic CHF. can't rule out element of right-sided CHF. see above. volume status improving. cont IV bumex today. (8) Elevated troponin: Plan: Likely 2nd to myocardial demand-ischemia Can't rule out CAD however see "chest pain" above (9) Hypertension: Plan: Cont metoprolol Cont bumex (10) Dyslipidemia: Plan: resume crestor (11) Diabetes type 2, uncontrolled: Plan: Appreciate pharmacy for glycemic control HbA1c 6.7% Remains on lantus BID and novolog SSI (12) Diabetic peripheral neuropathy associated with type 2 diabetes mellitus: Plan: Continue topiramate and gabapentin (13) Depression: Plan: Continue doxepin, fluoxetine (14) History of deep venous thrombosis: Plan: see "pulmonary emboli" above (15) Morbid obesity with BMI of 50.0-59.9, adult: Plan: BMI 55 (16) Below-knee amputation of left lower extremity: Plan resuming heparin drip today care extensively discussed with pt & his twice at bedside care d/w Dr Espitia by phone complex care coordination total time today - multiple visits, multiple phone calls, etc- 75 min Admission and Anticipated Discharge Date Admission Date: September 10, 2022 Subjective patient continues to have dyspnea on exertion with fairly minimal amount of activity -- just walking from bed to bathroom in his room he has mild associated chest discomfort with it - left chest, lower sternal region, just to left of xiphoid process area he has minimal cough the dyspnea/chest pain is improved from admission but [id number] still present to his recollection he has never had PEs but has been dx with multiple DVTs over the years (5-6 episodes??) has never had heart cath continues to produce copious urine with the IV bumex tele overnight wnl Review of Systems Review of Systems: gen - no fevers skin - redness RLE resolved musculo - discomfort right thigh resolved CV - chest pain episodes - see HPI pulm - no wheezing Physical Exam Physical Exam: gen - morbidly obese, NAD, sitting in chair - pleasant neck - no JVD sitting at 90 degrees in chair mouth - MMM heart - RRR, s1 s2, no murmur lungs - decreased BS bases, otherwise CTA b/l; no rales, no wheezing abd - soft NT ND BS+ ext - left BKA; right leg with chronic appearing edema, about 2+, from foot to the right thigh skin - venous stasis changes/hyperpigmentation of right harkins; no cellulitis present musculo - right calf is swollen but improved from prior exam Results & Data Results & Data ([facility]) Vital Signs (Past 12 Hours) Vital Signs Temp Pulse Pulse Resp BP BP Pulse Ox 09/14/22 19:58 36.5 C 62 20 121/70 96 09/14/22 15:44 60 09/14/22 15:27 36.8 C 61 20 104/64 98 09/14/22 12:01 36.7 C 61 21 131/85 97 O2 Del Method 09/14/22 19:58 Room Air 09/14/22 15:44 09/14/22 15:27 Room Air 09/14/22 12:01 Room Air Laboratory Results Laboratory Results - last 24 hr 09/14/22 09/14/22 09/14/22 06:10 07:19 11:14 APTT PTT Ratio Sodium 135 L Potassium 3.2 L Chloride 100 Carbon Dioxide 28 Anion Gap 7 BUN 20 Creatinine 0.99 Est Cr Clr Drug Dosing 154.0 Est GFR ( Amer) 99.7 Est GFR (Non-Af Amer) 86.0 BUN/Creatinine Ratio 20.2 H Glucose 100 H POC Glucose 102 H 116 H Calcium 8.6 09/14/22 09/14/22 09/14/22 16:20 16:43 20:11 APTT 31.6 H PTT Ratio 1.1 Sodium Potassium Chloride Carbon Dioxide Anion Gap BUN Creatinine Est Cr Clr Drug Dosing Est GFR ( Amer) Est GFR (Non-Af Amer) BUN/Creatinine Ratio Glucose POC Glucose 118 H 119 H Calcium PG Care Time/CCT Total # of Minutes Spent Total Time Spent with Patient: Total time spent is greater than 50% in coordination of care (as documented) at patient's floor/unit and/or counseling patient: Prolonged Care Time Prolonged Care Time: Yes Total Prolonged Care Time: 75 Coding Level of Care Code 27493 Subseq Hosp Care Lvl 3 (25 - SIGNIFICANT, SEPARATELY IDENTIFIABLE ) Diagnoses Cellulitis L03.115 Laterality: right Site of cellulitis: extremity Site of cellulitis of extremity: lower extremity Pulmonary emboli I26.99 Dyspnea on exertion R06.09 Chest pain R07.9 Volume overload E87.70 Lymphedema I89.0 CHF (congestive heart failure) I50.9 Elevated troponin R77.8 Hypertension I10 Dyslipidemia E78.5 Diabetes type 2, uncontrolled E11.65 Diabetic peripheral neuropathy associated with type 2 diabetes mellitus E11.42 Depression F32.9 History of deep venous thrombosis Z86.718 Morbid obesity with BMI of 50.0-59.9, adult E66.01; Z68.43 Below-knee amputation of left lower extremity S88.112A Additional Codes Prolonged Care Time - Prolonged Care Time: Yes ([id number]) (1) Cellulitis Laterality: right Site of cellulitis: extremity Site of cellulitis of extremity: lower extremity Qualified Code(s): L03.115 - Cellulitis of right lower limb
[2022-09-14] MEDS: cephALEXin 500 MG CAP PO SCH (21:33)
[2022-09-15 00:44] LABS: Partial Thromboplastin Ratio 1.6; Partial Thromboplastin Time 43.3 Seconds (21.0-31.0)
[2022-09-15] MEDS: ACETAMINOPHEN 325 MG TAB PO PRN (01:12)
[2022-09-15] MEDS: HEPARIN SODIUM/DEXTROSE 25,000 UNITS/500 ML BAG IV SCH ×4 (04:05→23:24)
[2022-09-15] MEDS: INSULIN ASPART PER UNIT SC SCH ×4 (08:42→20:14)
[2022-09-15] MEDS: LIDOCAINE 5% 1 PATCH TD SCH (08:55)
[2022-09-15] MEDS: BUMETANIDE 4 MG in SYRINGE 0 ML IV SCH ×2 (08:55→17:51)
[2022-09-15] MEDS ORDERED: LANTUS PER UNIT CHARGE SQ ONE (09:00)
[2022-09-15] MEDS: lisinopril 2.5 MG TAB PO SCH (09:30)
[2022-09-15] MEDS: FLUoxetine HCL 20 MG CAP PO SCH (09:30)
[2022-09-15] MEDS: GABAPENTIN 600 MG TAB PO SCH ×3 (09:30→20:13)
[2022-09-15] MEDS: DOXYCYCLINE HYCLATE 100 MG CAP PO SCH ×2 (09:30→20:13)
[2022-09-15] MEDS: cephALEXin 500 MG CAP PO SCH ×3 (09:30→20:13)
[2022-09-15] MEDS: MULTIVITAMIN TAB PO SCH (09:30)
[2022-09-15] MEDS: CETIRIZINE HCL 10 MG TABLET PO SCH (09:30)
[2022-09-15] MEDS: METOPROLOL TARTRATE 50 MG TAB PO SCH (09:30)
[2022-09-15] MEDS: CHOLECALCIFEROL 5,000 UNITS 125 MCG TAB PO SCH (09:31)
[2022-09-15 09:33] LABS: Calcium 8.8 mg/dl (8.5-10.1); Creatinine Clr Calc Pharmacy 160.2 ml/min; Est GFR (African American) 111.8 ml/min; Est GFR (Non-African American) 96.5 ml/min; Potassium 3.5 mmol/L (3.5-5.1)
[2022-09-15] MEDS: CHOLESTYRAMINE LIGHT 4 GM PKT PO SCH ×2 (09:33→20:13)
[2022-09-15 10:02] LABS: Partial Thromboplastin Ratio 1.7
[2022-09-15] MEDS: POTASSIUM CHLORIDE CRTAB 20 MEQ TABCR PO SCH (11:43)
[2022-09-15 11:53] LABS: Partial Thromboplastin Time 45.4 Seconds (21.0-31.0)
--- NOTE | 2022-09-15 13:43 | Pharmacy Report ---
Pharmacy Glycemic Short Note 2 - Date of Service September 15, 2022 - Glycemic Short BSG Results (Last 24 hours): 09/14/22 09/14/22 09/15/22 16:20 20:11 07:05 Glucose POC Glucose 118 H 119 H 144 H 09/15/22 09/15/22 09/15/22 07:39 11:14 11:29 Glucose 135 H POC Glucose 129 H 138 H OUTPATIENT ANTIDIABETIC REGIMEN: * U-500 insulin, 120 units SC TIDM * Tirzepatide 5 mg SC weekly * HbA1c = 6.7% (09/11/22) ASSESSMENT: 09/15: * Patient has been receiving lower total daily doses of lantus over the past few days while still maintaining values within their goal range. * Patient was made NPO at midnight last night in anticipation of potential procedure. * Patient has two separate bolus dosing regimens: One for breakfast (tighter coverage), and one for lunch+dinner+bedtime. Given NPO status the more aggressive regimen will be loosened to reduce likelihood of overcorrection. 09/12: * Wyatt received a total of 124 units of insulin yesterday, 80 units basal + 4 4 units bolus. BSGs were: [phone] mg/dL. * Fasting BSG this AM was 130 mg/dL. Patients Lantus was reduced from 50 units to 30 units last evening for NPO status. He remains NPO this morning given chest pain and elevated troponin. Will continue with Lantus 30 units this AM. If diet ordered, return to 50 units. * No change to Novolog. On a heparin gtt now. 09/10: * is a 52 year old male, known to pharmacy glycemic service. Automatic pharmacy glycemic consult generated due to provider ordering home U-500 insulin. We have utilized SC basal/bolus regimen while inpatient in the past and will plan to do that again. * Admitted for RLE cellulitis, initiated on daptomycin and cefepime * Last admission in May of 2022, at that time patient received ~100 units of basal/day and 50-80 units bolus/day * Will order initial doses based on the regimen last admission * Pertinent PMH includes, poorly controlled T2DM (follows with [facility]), morbid obesity, hx of diabetic foot ulcers with L BKA PLAN FOR INPATIENT GLYCEMIC CONTROL: * Basal insulin * Lantus 30 units SC BID * Bolus insulin * NovoLog per scale ACHS or Q6hrs while NPO * Goal Range: Low 110 mg/dL - High 140 mg/dL * Correction Factor: 10 mg/dL/unit with breakfast, 15 mg/dL/unit with lunch, dinner, HS * Nutritional / Prandial insulin per carb ratio of 1 unit per 3 grams CHO consumed at breakfast, 6 with lunch, dinner, HS
[2022-09-15 14:44] LABS: INR 1.1 (0.9-1.1); Prothrombin Time 11.7 Seconds (9.0-12.0)
[2022-09-15] MEDS ORDERED: WARFARIN SOD 10 MG TAB PO ONE (15:45)
[2022-09-15 17:44] LABS: Partial Thromboplastin Ratio 1.6; Partial Thromboplastin Time 42.7 Seconds (21.0-31.0)
[2022-09-15 20:07] LABS: Partial Thromboplastin Ratio 1.6; Partial Thromboplastin Time 43.9 Seconds (21.0-31.0)
[2022-09-15] MEDS: ROSUVASTATIN CALCIUM 20 MG TAB PO SCH (20:13)
[2022-09-15] MEDS: DOXEPIN HCL 10 MG CAPSULE PO SCH (20:13)
[2022-09-15] MEDS: TOPIRAMATE 25 MG TAB PO SCH (20:13)
[2022-09-15] MEDS ORDERED: LANTUS PER UNIT CHARGE SQ SCH (21:00)
--- NOTE | 2022-09-15 21:39 | Hospitalist Progress Note ---
Date of Service September 15, 2022 Assessment & Plan (1) Cellulitis: Plan: RLE - clinically resolved. d/c IV daptomycin and IV cefepime. changed to keflex TID and doxycycline BID. today is day #6 of IV/PO abx (first day of abx was 09/10). Cont diuresis with bumex. (2) Pulmonary emboli: Plan: I obtained CTA chest 09/14/22 due to ongoing complaints of dyspnea on exertion along with chest pain. There were RLL pulmonary emboli, possibly chronic but uncertain. [id number] he has these despite use of Xarelto for several years. Although the PEs are present these likely only partially explain his dyspnea on exertion. (see below) Given the recurrent DVT episodes he has had over the years (5 or more episodes) along with these PEs and his morbid obesity he is a poor DOAC candidate. I explained this in detail to patient and his . Ideally he should be on lifelong coumadin. To that end restarted heparin drip standard dosing on 09/14. Start coumadin 10mg daily. d/c xarelto. Daily INR. (3) Dyspnea on exertion: Plan: although CTA chest shows RLL pulmonary emboli I suspect this is only 1 component of his LUNA I am concerned that ischemic heart disease/CAD could be contributing to dyspnea in light of associated chest pain I can't rule out pulmonary HTN contributing either (right heart disease suspected - reflux of IV contrast into the IVC and hepatic veins seen on CTA chest) see #4 below (4) Chest pain: Plan: Although there are RLL pulmonary emboli - possibly chronic - I do not feel these are the cause of his chest pain episodes. He has extensive coronary calcifications on CT chest. Has numerous CAD risk factors. Given the ongoing LUNA along with chest pain I spoke with Dr Espitia from cardiology. We both agreed L & R heart cath would be ideal. Dr Espitia discussed this with [facility] cardiology interventionalist today -- felt too high risk for [facility] and advise tertiary care center referral for heart cath. Patient understandably upset about this but I agree w/ cardiology this is safest plan for him. [place] [facility] [place] [facility] [place] (outpatient referral is ok per cardiology) will place on daily asa 81mg. He remains on statin therapy -- crestor 20mg daily (LDL of 21 in 2020). (5) Volume overload: Plan: no pulmonary edema on CTA chest. [id number] he continues with significant diuresis on IV bumex BID. suspect he has right-sided CHF - most of his edema is LE edema, etc. see #3 above. he continues on IV bumex 4mg BID and BUN/Cr remain very stable. continue diuresis until bump in creatinine is seen. suspect we are approaching euvolemia. bmp am. (6) Lymphedema: Plan: chronic. cont bumex. would benefit from compressive therapy down the line. (7) CHF (congestive heart failure): Plan: acute/chronic diastolic CHF. can't rule out element of right-sided CHF. see above. volume status improving very nicely. copious weight loss. cont IV bumex 4mg BID. (8) Elevated troponin: Plan: Likely 2nd to myocardial demand-ischemia Can't rule out CAD however see "chest pain" above (9) Hypertension: Plan: Cont metoprolol Cont bumex (10) Dyslipidemia: Plan: cont crestor (11) Diabetes type 2, uncontrolled: Plan: Appreciate pharmacy for glycemic control HbA1c 6.7% Remains on lantus BID and novolog SSI control very satisfactory (12) Diabetic peripheral neuropathy associated with type 2 diabetes mellitus: Plan: Continue topiramate and gabapentin (13) Depression: Plan: Continue doxepin, fluoxetine (14) History of deep venous thrombosis: Plan: see "pulmonary emboli" above (15) Morbid obesity with BMI of 50.0-59.9, adult: Plan: BMI 50-55 (16) Below-knee amputation of left lower extremity: Plan: has prosthesis Plan care d/w Dr Espitia today Admission and Anticipated Discharge Date Admission Date: September 10, 2022 Subjective patient sitting in chair by window was very irritated - he was told by cardiology that he was too high risk for elective cath here at [facility] and tertiary care referral was advised he was disappointed and frustrated he can't have the cath here we had lengthy discussion about the issue he continues with LUNA but no chest pain at rest or w/ activity no new complaints tele overnight wnl asks about heparin drip/coumadin discussed ?lovenox candidacy - even if he was lovenox candidate he would NOT want to do shots at home (very adamant about this) Review of Systems Review of Systems: gen - eating well, ambulating cv - see HPI; no orthopnea; edema of arms/legs improved pulm - LUNA - no change; occasional cough GI - no N/V/abd pain Physical Exam Physical Exam: gen - morbidly obese, NAD, sitting in chair neck - no JVD sitting at 90 degrees in chair mouth - MMM heart - RRR, s1 s2, no murmur lungs - decreased BS bases, otherwise CTA b/l; no rales, no wheezing abd - soft NT ND BS+ ext - left BKA; right leg with chronic appearing edema - about 1+ today from foot to the right thigh skin - venous stasis changes/hyperpigmentation of right harkins; no cellulitis present musculo - right calf is swollen but improved from prior exam (less tense, nontender) Results & Data Results & Data ([facility]) Vital Signs (Past 12 Hours) Vital Signs Temp Pulse Pulse Resp BP BP Pulse Ox 09/15/22 19:37 36.4 C L 60 18 130/78 96 09/15/22 14:10 60 09/15/22 15:43 36.3 C L 62 18 120/69 94 09/15/22 11:42 36.4 C L 63 16 127/71 96 O2 Del Method 09/15/22 19:37 Room Air 09/15/22 14:10 09/15/22 15:43 Room Air 09/15/22 11:42 Room Air Laboratory Results Laboratory Results - last 24 hr 09/15/22 09/15/22 09/15/22 00:24 07:05 07:39 PT INR APTT 43.3 H PTT Ratio 1.6 Sodium 137 Potassium 3.5 Chloride 100 Carbon Dioxide 30 Anion Gap 7 BUN 18 Creatinine 0.90 Est Cr Clr Drug Dosing 160.2 Est GFR ( Amer) 111.8 Est GFR (Non-Af Amer) 96.5 BUN/Creatinine Ratio 20.0 Glucose 135 H POC Glucose 144 H Calcium 8.8 Magnesium 2.0 09/15/22 09/15/22 09/15/22 07:39 11:14 11:29 PT INR APTT 45.4 H* PTT Ratio 1.7 Sodium Potassium Chloride Carbon Dioxide Anion Gap BUN Creatinine Est Cr Clr Drug Dosing Est GFR ( Amer) Est GFR (Non-Af Amer) BUN/Creatinine Ratio Glucose POC Glucose 129 H 138 H Calcium Magnesium 09/15/22 09/15/22 09/15/22 14:12 14:12 16:23 PT 11.7 INR 1.1 APTT 42.7 H PTT Ratio 1.6 Sodium Potassium Chloride Carbon Dioxide Anion Gap BUN Creatinine Est Cr Clr Drug Dosing Est GFR ( Amer) Est GFR (Non-Af Amer) BUN/Creatinine Ratio Glucose POC Glucose 126 H Calcium Magnesium 09/15/22 09/15/22 19:04 20:04 PT INR APTT 43.9 H PTT Ratio 1.6 Sodium Potassium Chloride Carbon Dioxide Anion Gap BUN Creatinine Est Cr Clr Drug Dosing Est GFR ( Amer) Est GFR (Non-Af Amer) BUN/Creatinine Ratio Glucose POC Glucose 123 H Calcium Magnesium PG Care Time/CCT Total # of Minutes Spent Total Time Spent with Patient: Total time spent is greater than 50% in coordination of care (as documented) at patient's floor/unit and/or counseling patient: Coding Level of Care Code 47113 Subseq Hosp Care Lvl 3 Diagnoses Cellulitis L03.115 Laterality: right Site of cellulitis: extremity Site of cellulitis of extremity: lower extremity Pulmonary emboli I26.99 Dyspnea on exertion R06.09 Chest pain R07.9 Volume overload E87.70 Lymphedema I89.0 CHF (congestive heart failure) I50.9 Elevated troponin R77.8 Hypertension I10 Dyslipidemia E78.5 Diabetes type 2, uncontrolled E11.65 Diabetic peripheral neuropathy associated with type 2 diabetes mellitus E11.42 Depression F32.9 History of deep venous thrombosis Z86.718 Morbid obesity with BMI of 50.0-59.9, adult E66.01; Z68.43 Below-knee amputation of left lower extremity S88.112A (1) Cellulitis Laterality: right Site of cellulitis: extremity Site of cellulitis of extremity: lower extremity Qualified Code(s): L03.115 - Cellulitis of right lower limb
[2022-09-16] MEDS: HEPARIN SODIUM/DEXTROSE 25,000 UNITS/500 ML BAG IV SCH ×3 (00:44→16:36)
[2022-09-16 04:44] LABS: INR 1.1 (0.9-1.1); Partial Thromboplastin Ratio 2.1; Prothrombin Time 11.9 Seconds (9.0-12.0)
[2022-09-16 04:59] LABS: BUN Creatinine Ratio 19.8 (10-20); Creatinine Clr Calc Pharmacy 150.2 ml/min; Est GFR (African American) 103.4 ml/min; Est GFR (Non-African American) 89.3 ml/min; Potassium 3.5 mmol/L (3.5-5.1)
[2022-09-16 06:21] LABS: Partial Thromboplastin Time 57.4 Seconds (21.0-31.0)
[2022-09-16] MEDS ORDERED: WARFARIN SOD 10 MG TAB PO ONE (09:00)
[2022-09-16] MEDS ORDERED: LANTUS PER UNIT CHARGE SQ ONE ×2 (09:00→21:00)
[2022-09-16] MEDS: INSULIN ASPART PER UNIT SC SCH ×4 (09:11→20:07)
[2022-09-16] MEDS: METOPROLOL TARTRATE 50 MG TAB PO SCH (09:13)
[2022-09-16] MEDS: POTASSIUM CHLORIDE CRTAB 20 MEQ TABCR PO SCH (09:13)
[2022-09-16] MEDS: FLUoxetine HCL 20 MG CAP PO SCH (09:13)
[2022-09-16] MEDS: CETIRIZINE HCL 10 MG TABLET PO SCH (09:13)
[2022-09-16] MEDS: GABAPENTIN 600 MG TAB PO SCH ×3 (09:13→19:37)
[2022-09-16] MEDS: BUMETANIDE 4 MG in SYRINGE 0 ML IV SCH ×2 (09:13→17:43)
[2022-09-16] MEDS: MULTIVITAMIN TAB PO SCH (09:13)
[2022-09-16] MEDS: DOXYCYCLINE HYCLATE 100 MG CAP PO SCH ×2 (09:13→19:36)
[2022-09-16] MEDS: CHOLESTYRAMINE LIGHT 4 GM PKT PO SCH ×2 (09:14→20:11)
[2022-09-16] MEDS: cephALEXin 500 MG CAP PO SCH ×3 (09:14→19:35)
[2022-09-16] MEDS: CHOLECALCIFEROL 5,000 UNITS 125 MCG TAB PO SCH (09:16)
[2022-09-16] MEDS: LIDOCAINE 5% 1 PATCH TD SCH (09:16)
[2022-09-16] MEDS: ASPIRIN 81 MG ECTAB PO SCH (10:29)
--- NOTE | 2022-09-16 11:22 | Pharmacy Report ---
Pharmacy Glycemic Short Note 2 - Date of Service September 16, 2022 - Glycemic Short BSG Results (Last 24 hours): 09/15/22 09/15/22 09/15/22 11:14 11: 16:23 Glucose POC Glucose 129 H 138 H 126 H 09/15/22 09/16/22 09/16/22 20:04 04:08 07:07 Glucose 158 H POC Glucose 123 H 158 H OUTPATIENT ANTIDIABETIC REGIMEN: * U-500 insulin, 120 units SC TIDM * Tirzepatide 5 mg SC weekly * HbA1c = 6.7% (09/11/22) ASSESSMENT: 09/16: * Fasting BG this AM above goal at 158 mg/dL suggesting uptrend due to reduced cumulative Lantus dose over past few days. Increased morning dose and will enact scale for PM dose. * Diet advanced from NPO to T2DM; breakfast correction factor re-tightened from yesterday's adjustment. 09/15: * Patient has been receiving lower total daily doses of Lantus over the past few days while still maintaining values within their goal range. * Patient was made NPO at midnight last night in anticipation of potential procedure. * Patient has two separate bolus dosing regimens: One for breakfast (tighter coverage), and one for lunch+dinner+bedtime. Given NPO status the more aggressive regimen will be loosened to reduce likelihood of overcorrection. 09/12: * Wyatt received a total of 124 units of insulin yesterday, 80 units basal + 44 units bolus. BSGs were: [id number] mg/dL. * Fasting BSG this AM was 130 mg/dL. Patients Lantus was reduced from 50 units to 30 units last evening for NPO status. He remains NPO this morning given chest pain and elevated troponin. Will continue with Lantus 30 units this AM. If diet ordered, return to 50 units. * No change to Novolog. On a heparin gtt now. 09/10: * is a 52 year old male, known to pharmacy glycemic service. Automatic pharmacy glycemic consult generated due to provider ordering home U-500 insulin. We have utilized SC basal/bolus regimen while inpatient in the past and will plan to do that again. * Admitted for RLE cellulitis, initiated on daptomycin and cefepime * Last admission in May of 2022, at that time patient received ~100 units of basal/day and 50-80 units bolus/day * Will order initial doses based on the regimen last admission * Pertinent PMH includes, poorly controlled T2DM (follows with [place] [facility]), morbid obesity, hx of diabetic foot ulcers with L BKA PLAN FOR INPATIENT GLYCEMIC CONTROL: * Basal insulin * Lantus 50 units in AM x1; 30-50 units HS * Bolus insulin * NovoLog per scale ACHS or Q6hrs while NPO * Goal Range: Low 110 mg/dL - High 140 mg/dL * Correction Factor: 6 mg/dL/unit with breakfast, 15 mg/dL/unit with lunch, dinner, HS * Nutritional / Prandial insulin per carb ratio of 1 unit per 3 grams CHO consumed at breakfast, 6 with lunch, dinner, HS
[2022-09-16 13:29] LABS: Partial Thromboplastin Ratio 1.8
[2022-09-16 13:39] LABS: Partial Thromboplastin Time 49.5 Seconds (21.0-31.0)
[2022-09-16] MEDS: lisinopril 2.5 MG TAB PO SCH (14:20)
--- NOTE | 2022-09-16 15:18 | Hospitalist Progress Note ---
Date of Service September 16, 2022 Assessment & Plan (1) Cellulitis: Plan: RLE - clinically resolved. s/p IV daptomycin and IV cefepime earlier in stay. changed to keflex TID and doxycycline BID 09/15. today is day #7 of IV/PO abx (first day of abx was 09/10). can likely d/c all abx tomorrow AM Cont diuresis with bumex today (2) Pulmonary emboli: Plan: I obtained CTA chest 09/14/22 due to ongoing complaints of dyspnea on exertion along with chest pain. There were RLL pulmonary emboli, possibly chronic but uncertain. [id number] he has these despite use of Xarelto for several years. Although the PEs are present these likely only partially explain his dyspnea on exertion. (see below) Given the recurrent DVT episodes he has had over the years (5 or more episodes) along with these PEs and his morbid obesity he is a poor DOAC candidate. I explained this in detail to patient and his . Ideally he should be on lifelong coumadin. To that end restarted heparin drip standard dosing on 09/14. Coumadin 10mg po x 1 on 09/15 Coumadin 10mg po x 1 today will need to be redosed on 09/17 Daily INR. xarelto has been d/c (3) Dyspnea on exertion: Plan: although CTA chest shows RLL pulmonary emboli I suspect this is only 1 component of his LUNA I am concerned that ischemic heart disease/CAD could be contributing to dyspnea in light of associated chest pain I can't rule out pulmonary HTN contributing either (right heart disease suspected - reflux of IV contrast into the IVC and hepatic veins seen on CTA chest) see #4 below (4) Chest pain: Plan: Although there are RLL pulmonary emboli - possibly chronic - I do not feel these are the cause of his chest pain episodes. He has extensive coronary calcifications on CT chest. Has numerous CAD risk factors. Given the ongoing LUNA along with chest pain I spoke with Dr Espitia from cardiology. We both agreed L & R heart cath would be ideal. Dr Espitia discussed this with [facility] cardiology interventionalist today -- felt too high risk for [facility] and advise tertiary care center referral for heart cath. Patient understandably upset about this but I agree w/ cardiology this is safest plan for him. While awaiting a heart cath at [facility] [place] or [facility] [place] (outpatient referral is ok per cardiology) will place on daily asa 81mg. He remains on statin therapy -- crestor 20mg daily (LDL of 21 in 2020). (5) Volume overload: Plan: no pulmonary edema on CTA chest. [id number] he continues with significant diuresis on IV bumex BID. suspect he has right-sided CHF - most of his edema is LE edema, etc. see #3 above. he continues on IV bumex 4mg BID and BUN/Cr remain very stable. suspect we are approaching euvolemia. he mentions his urine output has slowed today. place bumex on hold after tonight's dose. bmp am. (6) Lymphedema: Plan: chronic. cont bumex. would benefit from compressive therapy down the line. (7) CHF (congestive heart failure): Plan: acute/chronic diastolic CHF. can't rule out element of right-sided CHF. see above. volume status improving very nicely. copious weight loss. cont IV bumex 4mg BID today then place on hold ; repeat exam and labs in am . (8) Elevated troponin: Plan: Likely 2nd to myocardial demand-ischemia Can't rule out CAD however see "chest pain" above (9) Hypertension: Plan: Cont metoprolol Cont bumex (10) Dyslipidemia: Plan: cont crestor (11) Diabetes type 2, uncontrolled: Plan: Appreciate pharmacy for glycemic control HbA1c 6.7% Remains on lantus BID and novolog SSI control very satisfactory (12) Diabetic peripheral neuropathy associated with type 2 diabetes mellitus: Plan: Continue topiramate and gabapentin (13) Depression: Plan: Continue doxepin, fluoxetine (14) History of deep venous thrombosis: Plan: see "pulmonary emboli" above (15) Morbid obesity with BMI of 50.0-59.9, adult: Plan: BMI 50-55 (16) Below-knee amputation of left lower extremity: Plan: has prosthesis Plan care d/w at bedside today can d/c home once INR >2 Admission and Anticipated Discharge Date Admission Date: September 10, 2022 Subjective patient feeling decent today no further chest pain spells with activity or at rest LUNA remains - not as severe as earlier in stay - but remains no new complaints at bedside - questions answered about care plan eating well tele overnight wnl Review of Systems Review of Systems: gen - no fever cv - no further cp; edema RLE improved pulm - no cough GI - no abd pain Physical Exam Physical Exam: gen - morbidly obese, NAD, sitting at side of bed neck - no JVD sitting at 90 degrees in chair mouth - MMM heart - RRR, s1 s2, no murmur lungs - airation in bases improved today; otherwise CTA b/l; no rales, no wheezing abd - soft NT ND BS+ ext - left BKA; right leg with chronic appearing edema - about <1+ today from foot to the right thigh (this is improved) skin - venous stasis changes/hyperpigmentation of right harkins; no cellulitis present musculo - right calf again is swollen but improved from prior exams (less tense, nontender, no erythema ) Results & Data Results & Data ([facility]) Vital Signs (Past 12 Hours) Vital Signs Temp Pulse Pulse Resp BP Pulse Ox O2 Del Method 09/16/22 12:32 36.6 C 60 18 117/71 92 Room Air 09/16/22 08:00 67 09/16/22 08:00 Room Air 09/16/22 07:36 36.5 C 59 L 16 141/68 H 93 Room Air Laboratory Results Laboratory Results - last 24 hr 09/15/22 09/15/22 09/15/22 14:12 16:23 19:04 PT INR APTT 42.7 H 43.9 H PTT Ratio 1.6 1.6 Sodium Potassium Chloride Carbon Dioxide Anion Gap BUN Creatinine Est Cr Clr Drug Dosing Est GFR ( Amer) Est GFR (Non-Af Amer) BUN/Creatinine Ratio Glucose POC Glucose 126 H Calcium 09/15/22 09/16/22 09/16/22 20:04 04:08 04:08 PT 11.9 INR 1.1 APTT 57.4 H* PTT Ratio 2.1 Sodium 136 Potassium 3.5 Chloride 102 Carbon Dioxide 27 Anion Gap 7 BUN 19 Creatinine 0.96 Est Cr Clr Drug Dosing 150.2 Est GFR ( Amer) 103.4 Est GFR (Non-Af Amer) 89.3 BUN/Creatinine Ratio 19.8 Glucose 158 H POC Glucose 123 H Calcium 9.0 09/16/22 09/16/22 09/16/22 07:07 11:22 12:33 PT INR APTT 49.5 H* PTT Ratio 1.8 Sodium Potassium Chloride Carbon Dioxide Anion Gap BUN Creatinine Est Cr Clr Drug Dosing Est GFR ( Amer) Est GFR (Non-Af Amer) BUN/Creatinine Ratio Glucose POC Glucose 158 H 108 H Calcium PG Care Time/CCT Total # of Minutes Spent Total Time Spent with Patient: Total time spent is greater than 50% in coordination of care (as documented) at patient's floor/unit and/or counseling patient: Coding Level of Care Code 46602 Subseq Hosp Care Lvl 2 Diagnoses Cellulitis L03.115 Laterality: right Site of cellulitis: extremity Site of cellulitis of extremity: lower extremity Pulmonary emboli I26.99 Dyspnea on exertion R06.09 Chest pain R07.9 Volume overload E87.70 Lymphedema I89.0 CHF (congestive heart failure) I50.9 Elevated troponin R77.8 Hypertension I10 Dyslipidemia E78.5 Diabetes type 2, uncontrolled E11.65 Diabetic peripheral neuropathy associated with type 2 diabetes mellitus E11.42 Depression F32.9 History of deep venous thrombosis Z86.718 Morbid obesity with BMI of 50.0-59.9, adult E66.01; Z68.43 Below-knee amputation of left lower extremity S88.112A (1) Cellulitis Laterality: right Site of cellulitis: extremity Site of cellulitis of extremity: lower extremity Qualified Code(s): L03.115 - Cellulitis of right lower limb
[2022-09-16] MEDS: DOXEPIN HCL 10 MG CAPSULE PO SCH (19:35)
[2022-09-16] MEDS: TOPIRAMATE 25 MG TAB PO SCH (19:38)
[2022-09-16] MEDS: ROSUVASTATIN CALCIUM 20 MG TAB PO SCH (19:38)
[2022-09-17] MEDS: HEPARIN SODIUM/DEXTROSE 25,000 UNITS/500 ML BAG IV SCH ×3 (00:05→19:07)
[2022-09-17] MEDS: ACETAMINOPHEN 325 MG TAB PO PRN (04:55)
[2022-09-17 07:57] LABS: BUN Creatinine Ratio 16.2 (10-20); Calcium 9.1 mg/dl (8.5-10.1); Creatinine Clr Calc Pharmacy 143.7 ml/min; Est GFR (African American) 92.8 ml/min; Est GFR (Non-African American) 80.1 ml/min; Potassium 3.8 mmol/L (3.5-5.1)
[2022-09-17 08:07] LABS: INR 1.4 (0.9-1.1); Partial Thromboplastin Ratio 2.5; Prothrombin Time 14.5 Seconds (9.0-12.0)
[2022-09-17 08:12] LABS: Partial Thromboplastin Time 67.4 Seconds (21.0-31.0)
--- NOTE | 2022-09-17 08:27 | Hospitalist Progress Note ---
Date of Service September 17, 2022 Assessment & Plan (1) Cellulitis: Plan: RLE - clinically resolved. s/p IV daptomycin and IV cefepime earlier in stay --> changed to Keflex TID and Doxycycline BID 09/15 and discontinued after this morning's dose as completed >7 day course. Diuresis for CHF --> had been on bumex 4mg IV bid, placed back on usual 4mg PO BID 09/17 Heparin gtt continued for RLL pulmonary emboli (chronic, but uncertain length of times) --> given Coumadin 10mg 09/16, additional 10mg ordered for today for INR 1.4 and expect rise for tomorrow given prior Coumadin 09/16 PT/OT consulted -- home with [facility] care (2) Pulmonary emboli: Plan: I obtained CTA chest 09/14/22 due to ongoing complaints of dyspnea on exertion along with chest pain (reporting NO chest pain 09/17) There were RLL pulmonary emboli, possibly chronic but uncertain. [id number] he has these despite use of Xarelto for several years. Although the PEs are present these likely only partially explain his dyspnea on exertion. (see below) Given the recurrent DVT episodes he has had over the years (5 or more episodes) along with these PEs and his morbid obesity he is a poor DOAC candidate. I explained this in detail to patient and his . Ideally he should be on lifelong coumadin. To that end restarted heparin drip standard dosing on 09/14. Coumadin 10mg po x 1 on 09/15 Coumadin 10mg po x 1 09/16 Additional 10mg dose for today (09/17), INR in AM Xarelto DISCONTINUED Daily INR (3) Dyspnea on exertion: Plan: although CTA chest shows RLL pulmonary emboli I suspect this is only 1 component of his LUNA I am concerned that ischemic heart disease/CAD could be contributing to dyspnea in light of associated chest pain I can't rule out pulmonary HTN contributing either (right heart disease suspected - reflux of IV contrast into the IVC and hepatic veins seen on CTA chest) Cardiology assisting w/ faxing information to [facility] to set up outpatient heart cath -- CM navigator also following and can assist with any issues. (4) Chest pain: Plan: Although there are RLL pulmonary emboli - possibly chronic - I do not feel these are the cause of his chest pain episodes. He has extensive coronary calcifications on CT chest. Has numerous CAD risk factors. Given the ongoing LUNA along with chest pain I spoke with Dr Espitia from cardiology. We both agreed L & R heart cath would be ideal. Dr Espitia discussed this with [facility] [place] cardiology interventionalist today -- felt too high risk for [facility] and advise tertiary care center referral for heart cath. Patient understandably upset about this but I agree w/ cardiology this is safest plan for him. While awaiting a heart cath at [facility] or [facility] [place] (outpatient referral is ok per cardiology), placed on daily asa 81mg. He remains on statin therapy -- crestor 20mg daily (LDL of 21 in 2020). NO CP reported 09/17 (5) Volume overload: Plan: no pulmonary edema on CTA chest. [id number] he continues with significant diuresis on IV bumex BID. suspect he has right-sided CHF - most of his edema is LE edema, etc. see #3 above. Continued on IV bumex 4mg BID and BUN/Cr remain very stable. suspect we are approaching euvolemia. he mentions his urine output has slowed Bumex transitioned to home 4mg PO BID Monitor BMP on repeat (6) Lymphedema: Plan: chronic. cont bumex. would benefit from compressive therapy down the line. (7) CHF (congestive heart failure): Plan: acute/chronic diastolic CHF. can't rule out element of right-sided CHF. see above. volume status improving very nicely. copious weight loss. Diuretics as above, resumed usual bumex 4mg PO BID this morning Appears euvolemic on exam (8) Elevated troponin: Plan: Likely 2nd to myocardial demand-ischemia Can't rule out CAD however see "chest pain" above (9) Hypertension: Plan: Cont metoprolol Cont bumex as outlined (10) Dyslipidemia: Plan: cont crestor (11) Diabetes type 2, uncontrolled: Plan: Appreciate pharmacy for glycemic control HbA1c 6.7% Remains on lantus BID and novolog SSI control very satisfactory (12) Diabetic peripheral neuropathy associated with type 2 diabetes mellitus: Plan: Continue topiramate and gabapentin (13) Depression: Plan: Continue doxepin, fluoxetine (14) History of deep venous thrombosis: Plan: see "pulmonary emboli" above (15) Morbid obesity with BMI of 50.0-59.9, adult: Plan: BMI 50-55 (16) Below-knee amputation of left lower extremity: Plan: has prosthesis Plan care d/w at bedside 09/16 PT/OT consulted -- home 24hr care D/c home once INR >2. Remains on heparin gtt, coumadin PO 10mg for today. Will need f/u coag clinic vs w/ PCP in [place] Admission and Anticipated Discharge Date Admission Date: September 10, 2022 Subjective Evaluated after lunch. Doing well. Labs stable, INR 1.4. Additional Coumadin to be provided today. Hopefully will be able to come off the heparin gtt tomorrow pending INR but will monitor. Patient hopeful for d/c in next 24-48 hours. Inquired about labs, reviewed. Arranging outpatient f/u [facility] cardiology for heart cath. Denies any chest pain presently. Weight down w/ standing scale, although patient states we are reporting more weight loss than he thinks. Remains in good spirits, telling jokes. Review of Systems Review of Systems: All systems reviewed & are unremarkable except as noted in HPI & below Physical Exam Physical Exam: General: WN/WD morbidly obese, NAD HEENT: head normocephalic, thick neck, trachea midline Resp: diminished in the bases, no w/c, on room air CV: RRR, no m/r/g, chronic edema, non-pitting GI: +BS, nontender MSK/Neuro: moves all extremities, RLE amputation, assistive device in place, R calf swollen/hardened (nontender, no erythema) Skin: warm, dry, venous stasis changes/hyperpigmentation Psych: AOx3, pleasant and cooperative Results & Data Results & Data ([facility]) Vital Signs (Past 12 Hours) Vital Signs Temp Pulse Pulse Resp BP BP Pulse Ox 09/17/22 08:11 37.5 C 64 18 127/69 95 09/17/22 02:39 36.4 C L 65 18 113/71 95 09/17/22 01:34 76 09/16/22 23:11 36.7 C 65 20 119/64 96 09/16/22 21:42 O2 Del Method 09/17/22 08:11 Room Air 09/17/22 02:39 Room Air 09/17/22 01:34 09/16/22 23:11 Room Air 09/16/22 21:42 Room Air Laboratory Results 09/17/22 09/17/22 09/17/22 Range/Units 07:32 06:59 06:59 PT 14.5 H (9.0-12.0) Seconds INR 1.4 H (0.9-1.1) APTT 67.4 H* (21.0-31.0) Seconds PTT Ratio 2.5 Sodium 135 L (136-145) mmol/L Potassium 3.8 (3.5-5.1) mmol/L Chloride 100 (98-107) mmol/L Carbon Dioxide 28 (21-32) mmol/L Anion Gap 7 (3-11) BUN 17 (6-23) mg/dl Creatinine 1.05 (0.6-1.4) mg/dl Est Cr Clr Drug Dosing 143.7 ml/min Est GFR ( Amer) 92.8 ml/min Est GFR (Non-Af Amer) 80.1 ml/min BUN/Creatinine Ratio 16.2 (10-20) Glucose 140 H (70-99(Fasting)) mg/dl POC Glucose 144 H (70-99) mg/dl Calcium 9.1 (8.5-10.1) mg/dl 09/16/22 09/16/22 09/16/22 Range/Units 19:45 16:01 12:33 PT (9.0-12.0) Seconds INR (0.9-1.1) APTT 49.5 H* (21.0-31.0) Seconds PTT Ratio 1.8 Sodium (136-145) mmol/L Potassium (3.5-5.1) mmol/L Chloride (98-107) mmol/L Carbon Dioxide (21-32) mmol/L Anion Gap (3-11) BUN (6-23) mg/dl Creatinine (0.6-1.4) mg/dl Est Cr Clr Drug Dosing ml/min Est GFR ( Amer) ml/min Est GFR (Non-Af Amer) ml/min BUN/Creatinine Ratio (10-20) Glucose (70-99(Fasting)) mg/dl POC Glucose 194 H 207 H (70-99) mg/dl Calcium (8.5-10.1) mg/dl 11/29/22 Range/Units 11:22 PT (9.0-12.0) Seconds INR (0.9-1.1) APTT (21.0-31.0) Seconds PTT Ratio Sodium (136-145) mmol/L Potassium (3.5-5.1) mmol/L Chloride (98-107) mmol/L Carbon Dioxide (21-32) mmol/L Anion Gap (3-11) BUN (6-23) mg/dl Creatinine (0.6-1.4) mg/dl Est Cr Clr Drug Dosing ml/min Est GFR ( Amer) ml/min Est GFR (Non-Af Amer) ml/min BUN/Creatinine Ratio (10-20) Glucose (70-99(Fasting)) mg/dl POC Glucose 108 H (70-99) mg/dl Calcium (8.5-10.1) mg/dl PG Care Time/CCT Total # of Minutes Spent Total Time Spent with Patient: Total time spent is greater than 50% in coordination of care (as documented) at patient's floor/unit and/or counseling patient: Coding Level of Care Code 46129 Subseq Hosp Care Lvl 3 Diagnoses Cellulitis L03.115 Laterality: right Site of cellulitis: extremity Site of cellulitis of extremity: lower extremity Pulmonary emboli I26.99 Dyspnea on exertion R06.09 Chest pain R07.9 Volume overload E87.70 Lymphedema I89.0 CHF (congestive heart failure) I50.9 Elevated troponin R77.8 Hypertension I10 Dyslipidemia E78.5 Diabetes type 2, uncontrolled E11.65 Diabetic peripheral neuropathy associated with type 2 diabetes mellitus E11.42 Depression F32.9 History of deep venous thrombosis Z86.718 Morbid obesity with BMI of 50.0-59.9, adult E66.01; Z68.43 Below-knee amputation of left lower extremity S88.112A (1) Cellulitis Laterality: right Site of cellulitis: extremity Site of cellulitis of extremity: lower extremity Qualified Code(s): L03.115 - Cellulitis of right lower limb
[2022-09-17] MEDS: CETIRIZINE HCL 10 MG TABLET PO SCH (08:29)
[2022-09-17] MEDS: LIDOCAINE 5% 1 PATCH TD SCH (08:29)
[2022-09-17] MEDS: FLUoxetine HCL 20 MG CAP PO SCH (08:30)
[2022-09-17] MEDS: cephALEXin 500 MG CAP PO SCH (08:30)
[2022-09-17] MEDS: lisinopril 2.5 MG TAB PO SCH (08:30)
[2022-09-17] MEDS: CHOLESTYRAMINE LIGHT 4 GM PKT PO SCH ×2 (08:30→19:44)
[2022-09-17] MEDS: POTASSIUM CHLORIDE CRTAB 20 MEQ TABCR PO SCH (08:31)
[2022-09-17] MEDS: MULTIVITAMIN TAB PO SCH (08:31)
[2022-09-17] MEDS: GABAPENTIN 600 MG TAB PO SCH ×3 (08:31→19:46)
[2022-09-17] MEDS: DOXYCYCLINE HYCLATE 100 MG CAP PO SCH (08:31)
[2022-09-17] MEDS: CHOLECALCIFEROL 5,000 UNITS 125 MCG TAB PO SCH (08:31)
[2022-09-17] MEDS: METOPROLOL TARTRATE 50 MG TAB PO SCH (08:31)
[2022-09-17] MEDS: ASPIRIN 81 MG ECTAB PO SCH (08:32)
[2022-09-17] MEDS: LANTUS PER UNIT CHARGE SQ SCH ×2 (08:38→20:01)
[2022-09-17] MEDS: INSULIN ASPART PER UNIT SC SCH ×4 (08:38→19:42)
[2022-09-17] MEDS: BUMETANIDE 1 MG TAB PO SCH ×2 (10:32→16:08)
[2022-09-17 14:53] LABS: Partial Thromboplastin Ratio 2.2
[2022-09-17 15:22] LABS: Partial Thromboplastin Time 60.7 Seconds (21.0-31.0)
[2022-09-17] MEDS ORDERED: WARFARIN SOD 10 MG TAB PO SCH (16:00)
[2022-09-17] MEDS: TOPIRAMATE 25 MG TAB PO SCH (19:45)
[2022-09-17] MEDS: DOXEPIN HCL 10 MG CAPSULE PO SCH (19:45)
[2022-09-17] MEDS: ROSUVASTATIN CALCIUM 20 MG TAB PO SCH (19:45)
[2022-09-18] MEDS: ACETAMINOPHEN 325 MG TAB PO PRN (04:06)
[2022-09-18] MEDS: HEPARIN SODIUM/DEXTROSE 25,000 UNITS/500 ML BAG IV SCH ×2 (04:55→15:33)
[2022-09-18 07:29] LABS: Hematocrit (blood only) 37.4 % (40.1-51.0); Hemoglobin 12.6 g/dl (14.0-18.0); Mean Corpuscular Hemoglobin 29.5 pg (25.0-34.0); Mean Corpuscular Hgb Conc 33.7 g/dL (32.0-36.0); Mean Corpuscular Volume 87.6 fL (80.0-100.0); Mean Platelet Volume 9.3 fL (9.4-12.4); Platelet Count 292 K/uL (130-400); RDW Standard Deviation 44.6 fL (36.4-46.3); Red Blood Count 4.27 M/uL (4.63-6.08); White Blood Count 8.91 K/ul (4.8-10.8)
[2022-09-18] MEDS: MULTIVITAMIN TAB PO SCH (07:34)
[2022-09-18] MEDS: ASPIRIN 81 MG ECTAB PO SCH (07:34)
[2022-09-18] MEDS: FLUoxetine HCL 20 MG CAP PO SCH (07:34)
[2022-09-18] MEDS: lisinopril 2.5 MG TAB PO SCH (07:34)
[2022-09-18] MEDS: METOPROLOL TARTRATE 50 MG TAB PO SCH (07:34)
[2022-09-18] MEDS: POTASSIUM CHLORIDE CRTAB 20 MEQ TABCR PO SCH (07:34)
[2022-09-18] MEDS: LIDOCAINE 5% 1 PATCH TD SCH (07:34)
[2022-09-18] MEDS: CETIRIZINE HCL 10 MG TABLET PO SCH (07:34)
[2022-09-18] MEDS: CHOLECALCIFEROL 5,000 UNITS 125 MCG TAB PO SCH (07:35)
[2022-09-18] MEDS: BUMETANIDE 1 MG TAB PO SCH ×2 (07:35→16:18)
[2022-09-18] MEDS: GABAPENTIN 600 MG TAB PO SCH ×3 (07:35→20:48)
[2022-09-18] MEDS: INSULIN ASPART PER UNIT SC SCH ×5 (07:48→22:00)
[2022-09-18 07:55] LABS: INR 1.9 (0.9-1.1); Partial Thromboplastin Ratio 2.9; Prothrombin Time 19.1 Seconds (9.0-12.0)
[2022-09-18 07:57] LABS: BUN Creatinine Ratio 15.9 (10-20); Calcium 9.3 mg/dl (8.5-10.1); Creatinine Clr Calc Pharmacy 142.6 ml/min; Est GFR (African American) 90.7 ml/min; Est GFR (Non-African American) 78.3 ml/min; Magnesium 1.8 mg/dl (1.7-2.4); Potassium 3.9 mmol/L (3.5-5.1)
--- NOTE | 2022-09-18 08:06 | Hospitalist Progress Note ---
Date of Service September 18, 2022 Assessment & Plan (1) Cellulitis: Plan: RLE - clinically resolved. s/p IV daptomycin and IV cefepime earlier in stay--> changed to Keflex TID and Doxycycline BID 09/15. Completed course Diuresis for CHF--> had been on bumex 4mg IV bid, placed back on usual 4mg PO BID 09/17. --> Additional 4mg dose for this afternoon 09/18 given + edema RLE (L AKA amputee) Heparin gtt continued for RLL pulmonary emboli (chronic, but uncertain length of times)--> given Coumadin 10mg 09/16, additional 10mg ordered for 09/17 for INR 1.4 INR now 1.9, will order 5mg coumadin for this evening Did discuss w/ coag clinic provider given patient will be following with PCP in [place] for his coumadin/INR for recommendations at discharge. --> likely need 40-45mg/weekly. Plan for d/c on 5mg/7.5mg alternating doses and monitor INR in AM. Would plan for repeat check on Thursday outpatient if discharged tomorrow PT/OT consulted -- home with 24h care (2) Pulmonary emboli: Plan: CTA chest 09/14/22 due to ongoing complaints of dyspnea on exertion along with chest pain (reporting NO chest pain 09/17-09/18 since initiation of ASA 81mg daily) There were RLL pulmonary emboli, possibly chronic but uncertain. [id number] he has these despite use of Xarelto for several years. Although the PEs are present these likely only partially explain his dyspnea on exertion. (see below) Given the recurrent DVT episodes he has had over the years (5 or more episodes) along with these PEs and his morbid obesity he is a poor DOAC candidate. I explained this in detail to patient and his . Ideally he should be on lifelong coumadin. To that end restarted heparin drip standard dosing on 09/14. Coumadin 10mg po x 1 on 09/15 Coumadin 10mg po x 1 09/16 Additional 10mg dose for 09/17--> INR 1.9 and will decrease dose to 5mg for today and plan for 5mg/7.5mg alternating days as above Xarelto DISCONTINUED Monitor INR in AM, if > 2 planning for discharge (3) Dyspnea on exertion: Plan: although CTA chest shows RLL pulmonary emboli I suspect this is only 1 component of his LUNA I am concerned that ischemic heart disease/CAD could be contributing to dyspnea in light of associated chest pain I can't rule out pulmonary HTN contributing either (right heart disease suspected - reflux of IV contrast into the IVC and hepatic veins seen on CTA chest) Cardiology assisting w/ faxing information to [facility] to set up outpatient heart cath , had nurse navigator verify/re-fax yesterday as they said they hadn't received anything --> patient received call from [facility], appointment in next 2 weeks (?Sep 29- I believe he said) (4) Chest pain: Plan: Although there are RLL pulmonary emboli - possibly chronic - I do not feel these are the cause of his chest pain episodes. He has extensive coronary calcifications on CT chest. Has numerous CAD risk factors. Given the ongoing LUNA along with chest pain I spoke with Dr Espitia from cardiology. We both agreed L & R heart cath would be ideal. Dr Espitia discussed this with [facility] cardiology interventionalist -- felt too high risk for [facility] and advise tertiary care center referral for heart cath. Patient understandably upset about this but I agree w/ cardiology this is safest plan for him. While awaiting a heart cath at [facility] or [facility] (outpatient referral is ok per cardiology), placed on daily asa 81mg. He remains on statin therapy -- crestor 20mg daily (LDL of 21 in 2020). NO CP reported since initiation of ASA, planning outpt cath mid September at [facility] as above (5) Volume overload: Plan: no pulmonary edema on CTA chest. [id number] he continues with significant diuresis on IV bumex BID. suspect he has right-sided CHF - most of his edema is LE edema, etc. see #3 above Bumex 4mg IV BID converted to PO BID 09/17 Additional 4mg PO for today ordered Kidney function stable Monitor BMP (6) Lymphedema: Plan: chronic. cont bumex. would benefit from compressive therapy down the line. (7) CHF (congestive heart failure): Plan: acute/chronic diastolic CHF. can't rule out element of right-sided CHF. see above. volume status improving very nicely. copious weight loss. Diuretics as above, resumed usual bumex 4mg PO BID 09/17, additional 4mg ordered for this afternoon Monitor status in AM (8) Elevated troponin: Plan: Likely 2nd to myocardial demand-ischemia Can't rule out CAD however see "chest pain" above (9) Hypertension: Plan: Cont metoprolol Cont bumex as outlined (10) Dyslipidemia: Plan: cont crestor (11) Diabetes type 2, uncontrolled: Plan: Appreciate pharmacy for glycemic control HbA1c 6.7% Remains on lantus BID and novolog SSI control very satisfactory (12) Diabetic peripheral neuropathy associated with type 2 diabetes mellitus: Plan: Continue topiramate and gabapentin (13) Depression: Plan: Continue doxepin, fluoxetine (14) History of deep venous thrombosis: Plan: see "pulmonary emboli" above (15) Morbid obesity with BMI of 50.0-59.9, adult: Plan: BMI 50-55 (16) Below-knee amputation of left lower extremity: Plan: has prosthesis Plan PT/OT consulted -- home 24hr care Coumadin 5mg PO for today, planning to alternate 5mg/7.5mg at discharge. Repeat INR recommended for Thursday, and planning to d/c if INR >2 on AM labs Additional 4mg PO bumex for slight volume overload, monitor volume status in AM Outpatient [facility] for cardiac cath in next 2 weeks to r/o ischemic heart disease/CAD Admission and Anticipated Discharge Date Admission Date: September 10, 2022 Supervising Physician Co-Signing Physician Notes Case discussed with Paige Mendiola PA-C and chart personally reviewed by me. No changes to above plan. Subjective Eval this morning, breathing stable. No further CP since ASA 81mg initiated and will continue. Up in chair Got call from [facility], appointment for September 30. Discussed INR, 1.9 and almost 2. Will plan for d/c tomorrow. Breathing stable. No fever/chills, chest pain, shortness of breath. Does have some increased pitting edema to harkins, additional bumex ordred for noon time. Discussed reaching out to coag clinic for recommendations as will be following w/ PCP for coumadin. planning for INR recheck for thursday if d/c tomorrow. Review of Systems Review of Systems: All systems reviewed & are unremarkable except as noted in HPI & below Physical Exam Physical Exam: General: WN/WD morbidly obese, NAD, sitting up in recliner HEENT: head normocephalic, thick neck, trachea midline Resp: diminished in the bases, no w/c, on room air CV: RRR, no m/r/g, chronic edema, 1+ pitting to RLE GI: +BS, nontender MSK/Neuro: moves all extremities, RLE AKA amputation, assistive device in place, R calf swollen/hardened (nontender, no erythema), 1+ pitting pre-tibial edema RLE Skin: warm, dry, venous stasis changes/hyperpigmentation Psych: AOx3, cooperative Results & Data Results & Data ([facility]) Vital Signs (Past 12 Hours) Vital Signs Temp Pulse Pulse Resp BP BP Pulse Ox 09/18/22 07:32 36.6 C 60 17 105/66 94 09/18/22 04:18 36.5 C 64 18 91/55 L 93 09/18/22 00:53 36.4 C L 66 18 103/57 L 96 09/18/22 00:30 61 O2 Del Method 09/18/22 07:32 Room Air 09/18/22 04:18 Room Air 09/18/22 00:53 Room Air 09/18/22 00:30 Laboratory Results 09/18/22 09/18/22 09/18/22 Range/Units 14:20 11:04 07:03 WBC (4.8-10.8) K/ul RBC (4.63-6.08) M/uL Hgb (14.0-18.0) g/dl Hct (40.1-51.0) % MCV (80.0-100.0) fL MCH (25.0-34.0) pg MCHC (32.0-36.0) g/dL RDW Std Deviation (36.4-46.3) fL RDW Coeff of Wil (11.5-14.5) % Plt Count (130-400) K/uL MPV (9.4-12.4) fL PT (9.0-12.0) Seconds INR (0.9-1.1) APTT Pending (21.0-31.0) Seconds PTT Ratio Pending Sodium 134 L (136-145) mmol/L Potassium 3.9 (3.5-5.1) mmol/L Chloride 100 (98-107) mmol/L Carbon Dioxide 26 (21-32) mmol/L Anion Gap 8 (3-11) BUN 17 (6-23) mg/dl Creatinine 1.07 (0.6-1.4) mg/dl Est Cr Clr Drug Dosing 142.6 ml/min Est GFR ( Amer) 90.7 ml/min Est GFR (Non-Af Amer) 78.3 ml/min BUN/Creatinine Ratio 15.9 (10-20) Glucose 132 H (70-99(Fasting)) mg/dl POC Glucose 137 H (70-99) mg/dl Calcium 9.3 (8.5-10.1) mg/dl Magnesium 1.8 (1.7-2.4) mg/dl 09/18/22 09/18/22 09/18/22 Range/Units 07:03 07:03 06:59 WBC 8.91 (4.8-10.8) K/ul RBC 4.27 L (4.63-6.08) M/uL Hgb 12.6 L (14.0-18.0) g/dl Hct 37.4 L (40.1-51.0) % MCV 87.6 (80.0-100.0) fL MCH 29.5 (25.0-34.0) pg MCHC 33.7 (32.0-36.0) g/dL RDW Std Deviation 44.6 (36.4-46.3) fL RDW Coeff of Wil 14.0 (11.5-14.5) % Plt Count 292 (130-400) K/uL MPV 9.3 L (9.4-12.4) fL PT 19.1 H (9.0-12.0) Seconds INR 1.9 H (0.9-1.1) APTT 79.4 H* (21.0-31.0) Seconds PTT Ratio 2.9 Sodium (136-145) mmol/L Potassium (3.5-5.1) mmol/L Chloride (98-107) mmol/L Carbon Dioxide (21-32) mmol/L Anion Gap (3-11) BUN (6-23) mg/dl Creatinine (0.6-1.4) mg/dl Est Cr Clr Drug Dosing ml/min Est GFR ( Amer) ml/min Est GFR (Non-Af Amer) ml/min BUN/Creatinine Ratio (10-20) Glucose (70-99(Fasting)) mg/dl POC Glucose 140 H (70-99) mg/dl Calcium (8.5-10.1) mg/dl Magnesium (1.7-2.4) mg/dl 09/17/22 09/17/22 09/17/22 Range/Units 19:34 16:13 14:07 WBC (4.8-10.8) K/ul RBC (4.63-6.08) M/uL Hgb (14.0-18.0) g/dl Hct (40.1-51.0) % MCV (80.0-100.0) fL MCH (25.0-34.0) pg MCHC (32.0-36.0) g/dL RDW Std Deviation (36.4-46.3) fL RDW Coeff of Wil (11.5-14.5) % Plt Count (130-400) K/uL MPV (9.4-12.4) fL PT (9.0-12.0) Seconds INR (0.9-1.1) APTT 60.7 H* (21.0-31.0) Seconds PTT Ratio 2.2 Sodium (136-145) mmol/L Potassium (3.5-5.1) mmol/L Chloride (98-107) mmol/L Carbon Dioxide (21-32) mmol/L Anion Gap (3-11) BUN (6-23) mg/dl Creatinine (0.6-1.4) mg/dl Est Cr Clr Drug Dosing ml/min Est GFR ( Amer) ml/min Est GFR (Non-Af Amer) ml/min BUN/Creatinine Ratio (10-20) Glucose (70-99(Fasting)) mg/dl POC Glucose 115 H 107 H (70-99) mg/dl Calcium (8.5-10.1) mg/dl Magnesium (1.7-2.4) mg/dl PG Care Time/CCT Total # of Minutes Spent Total Time Spent with Patient: Total time spent is greater than 50% in coordination of care (as documented) at patient's floor/unit and/or counseling patient: Coding Level of Care Code 47806 Subseq Hosp Care Lv 3 Diagnoses Cellulitis L03.115 Laterality: right Site of cellulitis: extremity Site of cellulitis of extremity: lower extremity Pulmonary emboli I26.99 Dyspnea on exertion R06.09 Chest pain R07.9 Volume overload E87.70 Lymphedema I89.0 CHF (congestive heart failure) I50.9 Elevated troponin R77.8 Hypertension I10 Dyslipidemia E78.5 Diabetes type 2, uncontrolled E11.65 Diabetic peripheral neuropathy associated with type 2 diabetes mellitus E11.42 Depression F32.9 History of deep venous thrombosis Z86.718 Morbid obesity with BMI of 50.0-59.9, adult E66.01; Z68.43 Below-knee amputation of left lower extremity S88.112A (1) Cellulitis Laterality: right Site of cellulitis: extremity Site of cellulitis of extremity: lower extremity Qualified Code(s): L03.115 - Cellulitis of right lower limb
[2022-09-18 08:12] LABS: Partial Thromboplastin Time 79.4 Seconds (21.0-31.0)
[2022-09-18] MEDS: LANTUS PER UNIT CHARGE SQ SCH ×2 (08:29→22:00)
[2022-09-18] MEDS: CHOLESTYRAMINE LIGHT 4 GM PKT PO SCH ×2 (10:09→22:39)
[2022-09-18] MEDS ORDERED: BUMETANIDE 1 MG TAB PO ONE (12:00)
--- NOTE | 2022-09-18 14:03 | Pharmacy Report ---
Pharmacy Glycemic Short Note 2 - Date of Service September 18, 2022 - Glycemic Short BSG Results (Last 24 hours): 09/17/22 09/17/22 09/18/22 16:13 19:34 06:59 Glucose POC Glucose 107 H 115 H 140 H 09/18/22 09/18/22 07:03 11:04 Glucose 132 H POC Glucose 137 H OUTPATIENT ANTIDIABETIC REGIMEN: * U-500 insulin, 120 units SC TIDM * Tirzepatide 5 mg SC weekly HbA1c = 6.7% (09/11/22) ASSESSMENT: 09/18: * BSGs remain well-controlled over past 36 hours, ranging 107-144 mg/dL * Carb ratio tightened slightly yesterday, will continue * Fasting BSGs improving, 140 mg/dL this morning - will continue current basal dose * Of note: regimen is quite weighted towards basal > bolus, may need to adjust regimen in future if overall downward trend in BSGs is observed 09/16: * Fasting BG this AM above goal at 158 mg/dL suggesting uptrend due to reduced cumulative Lantus dose over past few days. Increased morning dose and will enact scale for PM dose. * Diet advanced from NPO to T2DM; breakfast correction factor re-tightened from yesterday's adjustment. 09/10: * MS is a 52 year old male, known to pharmacy glycemic service. Automatic pharmacy glycemic consult generated due to provider ordering home U-500 insulin. We have utilized SC basal/bolus regimen while inpatient in the past and will plan to do that again. * Admitted for RLE cellulitis, initiated on daptomycin and cefepime * Last admission in May of 2022, at that time patient received ~100 units of basal/day and 50-80 units bolus/day * Will order initial doses based on the regimen last admission * Pertinent PMH includes, poorly controlled T2DM (follows with [facility]inology), morbid obesity, hx of diabetic foot ulcers with L BKA PLAN FOR INPATIENT GLYCEMIC CONTROL: * Basal insulin * Lantus 50 units SC BID * Bolus insulin * NovoLog per scale ACHS or Q6hrs while NPO * Goal Range: Low 110 mg/dL - High 140 mg/dL * Correction Factor: 6 mg/dL/unit with breakfast, 15 mg/dL/unit with lunch, dinner, HS * Nutritional / Prandial insulin per carb ratio of 1 unit per 3 grams CHO consumed at breakfast, 5 with lunch, dinner, HS
[2022-09-18 15:11] LABS: Partial Thromboplastin Ratio 2.8
[2022-09-18 15:17] LABS: Partial Thromboplastin Time 75.8 Seconds (21.0-31.0)
[2022-09-18] MEDS ORDERED: WARFARIN SOD 5 MG TAB PO SCH (16:00)
[2022-09-18] MEDS: TOPIRAMATE 25 MG TAB PO SCH (20:48)
[2022-09-18] MEDS: DOXEPIN HCL 10 MG CAPSULE PO SCH (20:48)
[2022-09-18] MEDS: ROSUVASTATIN CALCIUM 20 MG TAB PO SCH (20:48)
[2022-09-18 22:16] LABS: Partial Thromboplastin Ratio 2.3
[2022-09-18 22:18] LABS: Partial Thromboplastin Time 63.8 Seconds (21.0-31.0)
[2022-09-19] MEDS: HEPARIN SODIUM/DEXTROSE 25,000 UNITS/500 ML BAG IV SCH (03:14)
[2022-09-19] MEDS: LIDOCAINE 5% 1 PATCH TD SCH (07:13)
[2022-09-19] MEDS: GABAPENTIN 600 MG TAB PO SCH (07:13)
[2022-09-19] MEDS: BUMETANIDE 1 MG TAB PO SCH (07:14)
[2022-09-19] MEDS: CETIRIZINE HCL 10 MG TABLET PO SCH (07:14)
[2022-09-19] MEDS: FLUoxetine HCL 20 MG CAP PO SCH (07:15)
[2022-09-19] MEDS: ASPIRIN 81 MG ECTAB PO SCH (07:15)
[2022-09-19] MEDS: lisinopril 2.5 MG TAB PO SCH (07:15)
[2022-09-19] MEDS: CHOLECALCIFEROL 5,000 UNITS 125 MCG TAB PO SCH (07:15)
[2022-09-19] MEDS: METOPROLOL TARTRATE 50 MG TAB PO SCH (07:15)
[2022-09-19] MEDS: MULTIVITAMIN TAB PO SCH (07:16)
[2022-09-19] MEDS: POTASSIUM CHLORIDE CRTAB 20 MEQ TABCR PO SCH (07:16)
[2022-09-19] MEDS: INSULIN ASPART PER UNIT SC SCH ×2 (07:47→12:11)
[2022-09-19] MEDS: LANTUS PER UNIT CHARGE SQ SCH (07:48)
--- NOTE | 2022-09-19 07:51 | Hospitalist Progress Note ---
Date of Service September 19, 2022 Assessment & Plan Admission and Anticipated Discharge Date Admission Date: September 10, 2022 Results & Data Results & Data ([facility]) Vital Signs (Past 12 Hours) Vital Signs Temp Pulse Pulse Resp BP BP Pulse Ox 09/19/22 07:30 60 09/19/22 07:00 36.7 C 57 L 16 99/65 L 96 09/19/22 02:57 36.3 C L 62 18 122/66 96 09/18/22 22:05 62 09/18/22 21:45 09/18/22 23:36 36.8 C 64 18 119/69 96 09/18/22 20:30 36.5 C 62 18 124/59 L 96 O2 Del Method 09/19/22 07:30 09/19/22 07:00 Room Air 09/19/22 02:57 Room Air 09/18/22 22:05 09/18/22 21:45 Room Air 09/18/22 23:36 Room Air 09/18/22 20:30 Room Air PG Care Time/CCT Total # of Minutes Spent Total Time Spent with Patient: Total time spent is greater than 50% in coordination of care (as documented) at patient's floor/unit and/or counseling patient: Coding
[2022-09-19 08:44] LABS: Hemoglobin 12.7 g/dl (14.0-18.0); Mean Corpuscular Hemoglobin 29.3 pg (25.0-34.0); Mean Corpuscular Hgb Conc 33.4 g/dL (32.0-36.0); Mean Corpuscular Volume 87.8 fL (80.0-100.0); Mean Platelet Volume 9.9 fL (9.4-12.4); Platelet Count 287 K/uL (130-400); RDW Coefficient of Variation 13.9 % (11.5-14.5); RDW Standard Deviation 44.8 fL (36.4-46.3); Red Blood Count 4.33 M/uL (4.63-6.08); White Blood Count 8.55 K/ul (4.8-10.8)
[2022-09-19 09:08] LABS: BUN Creatinine Ratio 16.4 (10-20); Calcium 9.5 mg/dl (8.5-10.1); Creatinine Clr Calc Pharmacy 130.7 ml/min; Est GFR (African American) 82.3 ml/min; Potassium 3.9 mmol/L (3.5-5.1)
[2022-09-19 09:09] LABS: Partial Thromboplastin Ratio 2.7; Prothrombin Time 20.5 Seconds (9.0-12.0)
[2022-09-19 09:12] LABS: Partial Thromboplastin Time 74.2 Seconds (21.0-31.0)
[2022-09-19] MEDS: CHOLESTYRAMINE LIGHT 4 GM PKT PO SCH (11:03)
--- NOTE | 2022-09-19 13:51 | Discharge Summary ---
Date of Service September 19, 2022 Admission HPI Per Admitting Provider The patient is a 52-year-old male with a past medical history including chronic lymphedema, CHF, asthma, chronic anticoagulation for DVT, venous stasis ulcers, metabolic syndrome, morbid obesity with BMI 50-59.9, duodenal ulcer, left lower extremity BKA, depression, hypertension, dyslipidemia, diabetic foot ulcer and diabetic peripheral neuropathy. He presents with symptoms as noted above. He reports in general feeling weak and fatigued. Admission Exam Per Admitting Provider The patient is awake, alert and oriented 3, well developed and well nourished, normocephalic and atraumatic, lying in bed and in no acute distress. HEENT--PERRL, EOMI, mucous membranes and oropharynx normal Neck--supple. No JVD. No bruits. Thyroid normal, trachea midline, no adenopathy. Heart--normal S1 and S2. No murmurs, rubs or gallops. Lungs--clear bilaterally, no respiratory distress, no accessory muscle use. Abdomen--normal bowel sounds and soft. Nontender. Nondistended. Morbidly obese Extremities--left BKA. Right lower extremity with 2+ pitting edema, mild erythema, chronic venous stasis changes, and multiple areas of clear fluid leakage below the knee Dermatologic--normal skin turgor, normal color, no abnormal lymph nodes, no rash. Neurologic--cranial nerves II through XII grossly intact. Rheumatologic--limited exam due to body habitus Psychiatric--normal affect. Principal Diagnosis Cellulitis, CHF, Chest Pain, PEs Discharge Exam General: WN/WD morbidly obese, NAD, sitting up in recliner HEENT: head normocephalic, thick neck, trachea midline Resp: diminished in the bases, no w/c, on room air CV: RRR, no m/r/g, chronic edema, 1+ pitting to RLE GI: +BS, nontender MSK/Neuro: moves all extremities, RLE AKA amputation, prosthetic in place, R calf swollen/hardened (LESS swollen), NONTENDER, no erythema, 1+ pitting pre- tibial edema RLE Skin: warm, dry, venous stasis changes/hyperpigmentation Psych: AOx3, cooperative Discharge Data Allergies Allergy/AdvReac Type Severity Reaction Status Date / Time clindamycin Allergy Intermediate Hives Verified 07/29/22 10:39 vancomycin AdvReac Intermediate KYE Verified 07/29/22 10:39 SYNDROME piperacillin [From Zosyn] AdvReac Mild skin rash, Verified 07/29/22 10:39 itching, mild tazobactam [From Zosyn] AdvReac Mild skin rash, Verified 07/29/22 10:39 itching, mild Consultations 09/10/22 06:23 ED Decision to Admit Stat 09/11/22 22:18 Consult Cardiology Routine Ordered Studies Chest X-Ray 09/10/22 04:32 XR chest 1V portable HISTORY: 52 years-old Male Chest Pain . Acute shortness of breath COMPARISON: Chest radiographs 06/16/2022 TECHNIQUE: AP view of the chest FINDINGS: Cardiac silhouette is enlarged. Mild pulmonary vascular congestion. No pneumothorax or pleural effusion. Mild bibasilar opacities. Bones appear grossly intact. IMPRESSION: 1. Cardiomegaly with pulmonary vascular congestion. 2. Mild bibasilar opacities may be secondary to summation density/atelectasis. ACT 112: Negative or not required by law. The above report was generated using voice recognition software. It may contain grammatical, syntax or spelling errors. Electronically signed by: Jamey Dent M.D. 09/10/2022 6:26 AM Venous Doppler Study 09/10/22 04:33 US venous doppler LE RT HISTORY: 52 years-old Male swelling, eval for dvt acute pain and swelling of the right lower leg COMPARISON: 06/11/2022 TECHNIQUE: Multiple real-time sonographic images of the right lower extremity deep venous structures were obtained assessing grayscale appearance, color and spectral flow. FINDINGS: Normal flow, compressibility, phasicity and augmentation. Limited exam secondary to patient body habitus. There is limited visualization of the right lower ext remity deep venous structures, notably the superficial femoral vein and the calf veins. Right inguinal chain lymph nodes measure up to 4.7 cm. Subcutaneous edema. IMPRESSION: Limited exam as above. No sonographic evidence of deep venous thrombosis. ACT 112: Negative or not required by law. The above report was generated using voice recognition software. It may contain grammatical, syntax or spelling errors. Electronically signed by: Jamey Dent M.D. 09/10/2022 6:23 AM Chest X-Ray 09/12/22 10:15 XR chest 1V portable CLINICAL HISTORY: chest pain TECHNIQUE: Single frontal radiograph of the chest was obtained. Comparison: Comparison is made to chest radiograph 09/10/2022 FINDINGS: Exam is limited by underpenetration. Cardiomegaly is noted. The lungs are clear. No evidence of pleural effusion or pneumothorax. IMPRESSION: No acute chest disease. ACT 112: Negative or not required by law. Electronically signed by: Aroldo Levy M.D. 09/12/2022 1:08 PM Chest CTA 09/14/22 11:55 CT angio chest PE protocol CT DOSE: 969.06 mGy.cm HISTORY: 52 years-old Male with h/o multiple DVTs; pleuritic CP, dyspnea; r/o PE. Acute chest pain TECHNIQUE: Multiple CTA images of the chest were obtained after the intravenous administration of 107 ml Optiray. Coronal and sagittal MIPS were obtained from the axial data set and were submitted for review. All measurements were obtained according to NASCET criteria. A dose lowering technique was utilized adhering to the principles of ALARA. COMPARISON: Chest CT 07/31/2021, CTA chest 06/07/2015. FINDINGS: CTA: The heart is upper limits of normal in size with extensive coronary artery calcifications. Unremarkable thoracic aorta. Reflux of contrast into the IVC and hepatic veins. Mild linear pulmonary emboli are noted within segmental and subsegmental branches of the right lower lobe. No central pulmonary emboli are identified. CT CHEST: Unremarkable thyroid. No lymphadenopathy identified. The inferior lung bases are only partially imaged. No pneumothorax, pleural effusion or overt pulmonary edema. Mild linear subsegmental bibasilar atelectasis. 3 mm subpleural nodule of the right middle lobe on image 119, likely benign. No suspicious pulmonary nodules or masses are identified. Central airways are patent. No acute process of the imaged upper abdomen. Hepatic steatosis. Unremarkable soft tissues. No acute fracture. Degenerative changes of the spine. IMPRESSION: 1. Linear segmental and subsegmental pulmonary emboli of the right lower lobe appear to be nonocclusive and are technically age-indeterminate, possibly chronic. 2. Extensive coronary artery calcifications. 3. No pleural effusion or airspace consolidation. ACT 112: Negative or not required by law. The above report was generated using voice recognition software. It may contain grammatical, syntax or spelling errors. Electronically signed by: Jamey Dent M.D. 09/14/2022 2:57 PM Hospital Course (1) Cellulitis: RLE - clinically resolved. s/p IV daptomycin and IV cefepime earlier in stay--> changed to Keflex TID and Doxycycline BID 09/15. Completed course Diuresis for CHF --> had been on bumex 4mg IV bid, placed back on usual 4mg PO BID 09/17. Of note, was on lower dose until increased outpatient w/ CHF clinic , ?compliance. Has had significant diuresis with continued increased dose (and additional 4mg on 09/18) with stable kidney function. Encouraged continued low salt diet at discharge/monitoring weights/bumex 4mg PO BID and follow up with Angella Leavitt from CHF clinic for continued monitoring Heparin gtt continued for RLL pulmonary emboli (chronic, but uncertain length of times) --> given Coumadin 10mg 09/16, additional 10mg ordered for 09/17 for INR 1.4 and additional 5mg for INR 1.9 on 09/18. Repeat INR 2.0 -- discussed with coag clininc for recs --> discharged on coumadin 7.5mg 4x/wk, 5mg 3x/week and repeat INR on thursday ordered as will be following up with PCP for continued monitoring (2) Pulmonary emboli: CTA chest 09/14/22 due to ongoing complaints of dyspnea on exertion along with chest pain (reporting NO chest pain 09/17-09/19 since initiation of ASA 81mg daily) There were RLL pulmonary emboli, possibly chronic but uncertain --> [id number] he has these despite use of Xarelto for several years. Although the PEs are present these likely only partially explain his dyspnea on exertion. (see below) Given the recurrent DVT episodes he has had over the years (5 or more episodes) along with these PEs and his morbid obesity he is a poor DOAC candidate. I explained this in detail to patient and his . Ideally he should be on lifelong coumadin. To that end, restarted heparin drip standard dosing on 09/14. Coumadin as outlined above with INR 2.0 prior to discharge. Heparin gtt discontinued and On D/c, planned 7.5mg 4x/2k, 5mg 3x/wk and repeat INR thursday w/ PCP follow up Xarelto DISCONTINUED To monitor for any bleeding at d/c -- none reported, hgb stable on repeated values (3) Dyspnea on exertion: although CTA chest shows RLL pulmonary emboli I suspect this is only 1 component of his LUNA I am concerned that ischemic heart disease/CAD could be contributing to dyspnea in light of associated chest pain I can't rule out pulmonary HTN contributing either (right heart disease suspected - reflux of IV contrast into the IVC and hepatic veins seen on CTA chest) Cardiology assisting w/ faxing information to [facility] to set up outpatient heart cath , had nurse navigator verify/re-fax yesterday as they said they hadn't received anything--> patient received call from May, appointment in next 2 weeks (September 30) Strongly encouraged patient to keep follow up appointment, especially given resolution of chest pain since initiation of baby aspirin daily (4) Chest pain: Although there are RLL pulmonary emboli - possibly chronic - I do not feel these are the cause of his chest pain episodes. He has extensive coronary calcifications on CT chest, numerous CAD risk factors. Given prior ongoing LUNA along with chest pain --> discussed with cardiology and agreed L/R heart cath would be ideal, too high risk for this institution and advised referral to tertiary care outpatient CM assisted with faxing information to get patient follow up appointment prior to discharged --> he received a call for appointment September 30. Strongly encouraged follow up Remains on Crestor 20mg daily (LDL 21 in 2020), STARTED and continued 81mg daily while awaiting catheterization Of note, no further CP since initiation of ASA 81mg daily (5) Volume overload: no pulmonary edema on CTA chest, however continued w/ significant diuresis w/ bumex 4mg IV BID with stable kidney function suspect R sided as above/LE edema Encouraged continued low salt diet at discharge Monitor weights/alert for any significant weight gain To continue Bumex 4mg PO BID given stability of kidney function CHF clinic in follow up (6) Lymphedema: chronic. cont bumex as outlined would benefit from compressive therapy down the line. (7) CHF (congestive heart failure): acute/chronic diastolic CHF. can't rule out element of right-sided CHF. see above. volume status improving very nicely, copious weight loss Wt 208.4kg on admission --> discharged at 194lb Continue bumex 4mg PO BID as discussed with CHF clinic provider (8) Elevated troponin: Likely 2nd to myocardial demand-ischemia Can't rule out CAD however see "chest pain" above (9) Hypertension: Continued metoprolol, bumex as outlined (10) Dyslipidemia: cont crestor (11) Diabetes type 2, uncontrolled: Appreciate pharmacy for glycemic control while inpatient. A1c 6.7 Continue home meds at d/c States on Mounjaro since summer (prior on Ozempic), could have improvement w/ weight loss and encouraged f/u with endocrinology at discharge as well as possible psychiatric care per last Endocrinology note. Defer to PCP in follow up BSGs acceptable (12) Diabetic peripheral neuropathy associated with type 2 diabetes mellitus: Continued topiramate and gabapentin (13) Depression: Continued doxepin, fluoxetine (14) History of deep venous thrombosis: see "pulmonary emboli" above (15) Morbid obesity with BMI of 50.0-59.9, adult: BMI 50-55 (16) Below-knee amputation of left lower extremity: has prosthesis Total Time Total Time Spent Total Time Spent (In Minutes): 75 Discharge Plan Discharge Items Patient Disposition: Home - Self-Care Reason For Visit: ELEVATED TROPONIN, RLE CELLULITIS Discharge Diagnosis: Chest Pain, CHF, Cellulitis, pulmonary emboli Goals: You have been hospitalized for an acute medical problem. During your stay at [facility], we have made an effort to correct the problem that brought you to the hospital while keeping you as comfortable as possible. Medications were used to bring your condition under control and your discharge instructions will include directions for any medications you should take after leaving the hospital. Please make sure you see your Primary Care Provider as part of your follow up plan. Activity: As commented below Non-emergency contact: Primary Care Provider and Client Relation Specialist Call non-emergency contact if: you have any medication questions, your symptoms worsen, your pain is not controlled and you have a fever Follow-up/Referrals: Tristen Parra MD [Physician] - (scheduled with Renetta Leavitt) Mike Isidro MD [Primary Care Provider] - 09/26/22 8:30 am (Staci Martinez) Aida Leavitt PA-C [Physician Poker Supervisor] - 09/26/22 10:00 am (Congestive Heart Failure Program Appointment Information Early follow up is essential to managing your heart failure. An appointment has been scheduled for you with the [facility] Heart Failure Program within 7 days of discharge. Anticipate this visit to be 30-60 minutes long. Please expect a dolly pusher phone call from one of our nurses approximately 48 hours from discharge. They will also be placing an order for lab work to be completed 1-2 days prior to your heart failure follow up appointment. Please be sure to have this done so we can go over the results when you come in. Office Location The cardiology office building is located in front of the hospital at [address]. Bring the following with you to your follow-up doctor appointments: Please bring your daily weight log any discharge paperwork all of your medication bottles with you to this visit. ) Diet: Carb Consistent or DM2, Heart Healthy and Low Sodium (2gm) Ambulatory Orders: Prothrombin Time INR (Timed) Timeframe: [id number] Location: Determined by Patient Ordered By: Paige Barrett Attending Provider Instructions: You have been hospitalized for chest pain. You had evidence of heart failure which was treated with additional diuretics and you should continue low salt diet and Bumex 4mg twice daily and monitoring of your weights with follow up with CHF clinic. Please follow up with the CHF clinic, as well, Angella Leavitt for ongoing monitoring/adjustment of your Bumex as an outpatient. You were also started on aspirin 81mg daily for chest discomfort and as discussed, high risk and arrangements have been made for you to undergo cardiac catheterization as outpatient at tertiary center on September 30. PLEASE keep this appointment for further evaluation given concerns for underlying ischemic heart disease. You had evidence for a RIGHT leg cellulitis, treated with course of antibiotics while inpatient. We also found evidence for chronic pulmonary emboli, and given previous use of Xarelto, it was decided best to be on Coumadin. We used a heparin drip and oral Coumadin until your INR>2. Goal INR 2.0-3.0. I have discussed with the coagulation clinic regarding recommendations for Coumadin use at discharge as your primary care will continue to manage this as an outpatient. For start, we would like you to take Coumadin 5mg on Thursday, Thursday, Thursday, and 7.5mg on all other days. You will have repeat INR on Thursday to ensure stayng in a therapeutic range. You should have follow up with your primary care in the next 7-10 days to monitor your progress. Please monitor for any bleeding and alert PCP MILA. Please return to the ER for any chest pain, worsening shortness of breath, fever, or for any other symptoms concerning for you. It has been a pleasure being a part of the medical team providing for you while you have been in the hospital. Take care! Pending Studies at Discharge: No Stand-Alone Forms: [facility] Medications and DC Order Prescriptions: New nitroglycerin [Nitrostat] 0.4 mg Tablet, Sublingual 0.4 mg sublingual PRN PRN (Reason: chest pain) Qty: 14 0RF aspirin 81 mg Tablet,Delayed Release (Dr/Ec) 81 mg PO QAM Qty: 30 0RF potassium chloride 20 mEq tablet extended release 20 meq PO DAILY Qty: 30 0RF warfarin 5 mg tablet See Rx Instructions .ROUTE .COMPLEX Qty: 90 0RF Rx Instructions: Please take 5mg daily on Thursday, Thursday, Thursday. Please take 7.5mg daily all other days. Continued (DME) pen needle, diabetic [Comfort EZ Pen Boyd] 29 gauge x 1/2" needle See Rx Instructions .ROUTE .MEDSUPPLY Qty: 100 5RF Rx Instructions: As directed- use five times daily topiramate 25 mg tablet 25 mg PO HS Qty: 60 0RF (DME) blood sugar diagnostic Strip See Rx Instructions .ROUTE .MEDSUPPLY Qty: 100 5RF Rx Instructions: As directed to test blood sugar 4 times daily rosuvastatin [Crestor] 20 mg tablet 20 mg PO HS Qty: 90 3RF Rx Instructions: for cholesterol fluoxetine 60 mg tablet 60 mg PO QAM Qty: 90 3RF cholecalciferol (vitamin D3) [Vitamin D3] 125 mcg (5,000 unit) tablet 5,000 unit PO QAM Qty: 90 3RF lisinopril 2.5 mg tablet 2.5 mg PO QAM Qty: 90 1RF (DME) Dexcom G6 Horticultural Farmworker Misc See Rx Instructions .Route Qty: 1 0RF Rx Instructions: Use for continuous blood glucose monitoring (DME) Dexcom G6 Sensor Device See Rx Instructions .Route Qty: 3 11RF Rx Instructions: Use for continuous blood glucose monitoring. Replace sensor every 10 days (DME) Dexcom G6 Transmitter Device See Rx Instructions .Route Qty: 1 3RF Rx Instructions: Use for continuous blood glucose monitoring. Replace transmitter every 90 days tirzepatide 5 mg/0.5 mL pen injector 5 mg subcut Q7D Qty: 2 0RF Rx Instructions: Inject 1 syringe under the skin once a week for 4 weeks then increase to 7.5 mg weekly insulin regular hum U-500 conc 500 unit/mL (3 mL) insulin pen 80 unit subcut AC MDD 300 units a day Rx Instructions: 100 units of u 500 before breakfast, lunch and dinner. Up to a total daily dose of 240 units a day cetirizine 10 mg tablet 10 mg PO QAM Qty: 90 1RF gabapentin 600 mg tablet 600 mg PO HS Qty: 90 1RF hydroxyzine HCl 25 mg tablet 25 mg PO DAILY PRN (Reason: Anxiety) Qty: 30 5RF Rx Instructions: 25 mg PO daily as needed PRN; doxepin 10 mg capsule 10 mg PO HS Qty: 90 1RF Rx Instructions: 10 mg PO at bedtime; albuterol sulfate [Ventolin HFA] 90 mcg/actuation HFA aerosol inhaler 2 puff INHALATION Q6H PRN (Reason: Shortness Of Breath Or Wheezing) Qty: 18 3RF multivitamin Tablet 1 tab PO QAM cholestyramine (with sugar) 4 gram powder in packet 4 g PO BID Qty: 60 3RF Rx Instructions: administer w/meal; avoid other meds within 1hr before or 4-6hr after dose bumetanide 1 mg tablet 4 mg PO BID Qty: 180 1RF metoprolol tartrate 50 mg tablet 50 mg PO QAM Discontinued rivaroxaban 20 mg tablet 20 mg PO QPM Qty: 90 1RF Rx Instructions: must administer with evening meal Discharge Orders: Discharge Order (Routine); Ordered 09/19/22 Ordered By: Paige Mendiola Admission Data Admit Date/Time: 09/10/22 06:44 Attending Provider: Khushi Varghese Admit Provider: Shahbaz Andrade Primary Care Provider: Mike Isidro Other Providers: Shahbaz Andrade ; Tristen Parra ; Reynold Diego Other Interventions: Discharge Summary Assessment (RN) Last Done: 09/19/22 15:31 Supervising Physician Co-Signing Physician Notes PA Supervision Note: I personally saw and examined the patient. I verified all spear points and agree with MINA Medniola with the following exceptions and/or additions: Summary of present stay: 52-year-old male past medical history significant for CHF, DVT, metabolic syndrome, DM2, hypertension, hyperlipidemia admitted for right lower extremity cellulitis, during admission noted to be dyspneic and found on CT PE protocol to have PEs. Was initially on heparin which was transitioned to Coumadin given body habitus. INR on day of discharge was 2.0. Plan for anticoagulation was discussed with coag clinic, discharged with Coumadin 7.5 mg daily 4 times per week, 5 mg daily 3 times per week with repeat INR on Thursday. For right lower extremity cellulitis, was initially started on daptomycin/cefepime, which was transitioned to Keflex/Doxy and has since completed full course of this antibiotic with resolution of his cellulitis. Always has venous stasis changes to that right lower extremity and some pitting edema, encouraged leg elevation, low-salt diet for CHF, close monitoring of skin for wounds given previous history. During admission there was some concern that patient's dyspnea on exertion was multifactorial, including PE but also possibly secondary to history of CAD/ischemic heart disease in light of some associated chest pain at times. Cardiology was consulted this admission and does have a outpatient heart catheterization scheduled at [facility] on September 30. Baby aspirin started, to continue on discharge. For history of CHF, was on IV Bumex during admission with stable kidney function, to resume home PO Bumex with follow-up with [facility]. Advised to adhere strictly to low-sodium diet. Physical exam: Vitals reviewed Gen: Alert and oriented, NAD HEENT: anicteric sclerae, EOMI CV: RRR no mgr nl S1S2 Pulm: CTAB no wcr Abd: +BS soft NT ND no masses Ext: 2+ pitting RLE edema, red venous stasis changes Neuro: No focal neurologic deficits Labs, Rads, and ECG reviewed Coding Level of Care Code D/C DAY MANAGEMENT >30 MINS Diagnoses Cellulitis L03.115 Laterality: right Site of cellulitis: extremity Site of cellulitis of extremity: lower extremity Pulmonary emboli I26.99 Dyspnea on exertion R06.09 Chest pain R07.9 Volume overload E87.70 Lymphedema I89.0 CHF (congestive heart failure) I50.9 Elevated troponin R77.8 Hypertension I10 Dyslipidemia E78.5 Diabetes type 2, uncontrolled E11.65 Diabetic peripheral neuropathy associated with type 2 diabetes mellitus E11.42 Depression F32.9 History of deep venous thrombosis Z86.718 Morbid obesity with BMI of 50.0-59.9, adult E66.01; Z68.43 Below-knee amputation of left lower extremity S88.112A
[2022-09-19] MEDS ORDERED: WARFARIN SOD 7.5 MG TAB PO SCH (16:00)
--- NOTE | 2022-09-23 17:35 | Communication Note ---
Date of Service: September 23, 2022 Received labs in my inbox regarding Mr Bejarano's INR on repeat was 3.9. Was sent home on alternating doses of 5mg/7.5mg of warfarin. Messaged PCP to touch base to have patient to hold medication, no response for an hour so did ask CM to call patient and ensure no increased bleeding and to hold his coumadin. Appears patient taking coumadin in the morning, messaged PCP to also address such. Asked to contact PCP office in AM for further adjustments.
== END 2022-09-19 15:46 | disposition home or self-care (01) | DRG 602 ==
LOC: ED 04:21 → SUATTDRO 06:44 → 2S 06:44
DX: I87.2 Venous insufficiency (chronic) (peripheral); I25.2 Old myocardial infarction; E78.5 Hyperlipidemia, unspecified; Z20.822 Contact with and (suspected) exposure to COVID-19; I25.10 Atherosclerotic heart disease of native coronary artery without angina pectoris; R07.89 Other chest pain; Z79.4 Long term (current) use of insulin; Z86.718 Personal history of other venous thrombosis and embolism; Z79.01 Long term (current) use of anticoagulants; F32.A Depression, unspecified; I27.29 Other secondary pulmonary hypertension; Z89.512 Acquired absence of left leg below knee; E11.65 Type 2 diabetes mellitus with hyperglycemia; Z79.899 Other long term (current) drug therapy; I24.8 Other forms of acute ischemic heart disease; E55.9 Vitamin D deficiency, unspecified; J45.909 Unspecified asthma, uncomplicated; I89.0 Lymphedema, not elsewhere classified; I27.82 Chronic pulmonary embolism; E11.42 Type 2 diabetes mellitus with diabetic polyneuropathy; Z68.43 Body mass index [BMI] 50.0-59.9, adult; Z83.3 Family history of diabetes mellitus; Z88.1 Allergy status to other antibiotic agents; L03.115 Cellulitis of right lower limb; E87.20 Acidosis, unspecified; Z82.49 Family history of ischemic heart disease and other diseases of the circulatory system; I50.813 Acute on chronic right heart failure; I11.0 Hypertensive heart disease with heart failure; E66.01 Morbid (severe) obesity due to excess calories; I50.33 Acute on chronic diastolic (congestive) heart failure

== ENCOUNTER 2023-06-20 11:10 | Observation (INO) ==
--- NOTE | 2023-06-20 11:28 | Emergency Department Note ---
Impression & Plan Suicide attempt by drug overdose, Depression, Hypokalemia, Somnolence, QT prolongation ED Provider Note NAME: PHILIPP WILLAMS AGE: 53 SEX: M ARRIVES VIA: Ambulance INFORMANT: Patient ED PROVIDER(S): Get Trejo MD CHIEF COMPLAINT: Intentional overdose, Suicide attempt. PLAN: Disposition: Admit MEDICAL DECISION MAKING: The patient is a 53-year-old gentleman with a past medical history of anxiety/depression, hypertension, hyperlipidemia, CHF, DVT on warfarin, CAD who presents to the emergency department via EMS referred by crisis for suicide attempt where he reports taking 20 of the 600 mg gabapentin and 50 of what he presumes was 25 mg hydroxyzine approximate hour and a half prior to arrival in the setting of being in an argument with his since last night where he reports she made comments that he should "just kill himself then". He reports he has been under a lot of stress. He reports he did overdose with the attempt to kill himself but subsequently realizes that was "stupid". He does not feel he needs admission for this as he reports it would "not happen again". He has he has things to do including visiting his mother who recently lost her breast to breast cancer. On my evaluation the patient is melancholy appearing but no acute distress, afebrile with stable vital signs. At this time the patient has normal reflexes and no clonus. EKG demonstrates Sinus bradycardia, first-degree AV block, 58 bpm, no ectopy, incomplete right bundle branch block, no overt ST elevation or depression, QTc 560, QRS 110, morphology and QRS similar to September 10, 2022. QTc is prolonged from previous. WBC, H/H and platelets within normal limits. INR 2.7, within normal limits. Chemistry without metabolic acidosis. Potassium 3.3 with IV repletion provided. Electrolytes without significant abnormality otherwise. LFTs unremarkable. T SH within normal limits. UA with WBCs and 1+ bacteria albeit with epithelial cells present. Drug screen was negative with the exception of marijuana. Medical alcohol was undetectable. Case was discussed with Poison Control Center who recommends observation for 6 hours from ingestion and if not exhibiting symptoms could be medically cleared. However upon reevaluation the patient did exhibit increased drowsiness/mild somnolence though was alert to soft voice. Repeat EKG performed with improvement in QTc to 501 and otherwise no significant change. Given exhibiting symptoms from his overdose after 6 hours of observation patient was referred to hospital service for admission for continued observation in order for medical clearance to proceed with mental health evaluation. Case was discussed with Dr. Santos, [facility] hospitalist, who will evaluate the patient for admission. Triage Nursing notes reviewed and agree them. Prior/outside medical records reviewed Vital Signs: reviewed Differential diagnosis: Overdose, toxicologic, infection, hypoglycemia, electrolyte abnormalities, cardiac sources, intracerebral event, neurologic, trauma, as well as other pathologies. ER treatment provided: See below. Diagnostics interpreted by me: ECG: Sinus bradycardia, first-degree AV block, 58 bpm, no ectopy, incomplete right bundle branch block, no overt ST elevation or depression, QTc 560, QRS 110, morphology and QRS similar to September 10, 2022. QTc is prolonged from previous. Cardiac Monitoring: An order for continuous cardiac monitoring was placed and demonstrated Sinus bradycardia, first-degree AV block, 58 bpm, no ectopy. Laboratory studies: See below Imaging studies: See below Consultation(s): Poison control center Case was discussed with Dr. Santos, [facility] hospitalist, who will evaluate the patient for admission. HPI: The patient is a 53-year-old gentleman with a past medical history of anxiety/depression, hypertension, hyperlipidemia, CHF, DVT on warfarin, CAD who presents to the emergency department via EMS referred by crisis for suicide attempt where he reports taking 20 of the 600 mg gabapentin and 50 of what he presumes was 25 mg hydroxyzine approximate hour and a half prior to arrival in the setting of being in an argument with his since last night where he reports she made comments that he should "just kill himself then". He reports he has been under a lot of stress. He reports he did overdose with the attempt to kill himself but subsequently realizes that was "stupid". He does not feel he needs admission for this as he reports it would "not happen again". He has he has things to do including visiting his mother who recently lost her breast to breast cancer. ROS: See above HPI for pertinent positives & negatives. A total of 10 systems r eviewed and were otherwise negative. VITALS:See Below PHYSICAL EXAMINATION: GENERAL: Awake, alert, melancholy-appearing, in no distress, BMI 50.4. HENT: Normocephalic, atraumatic. Oropharynx unremarkable. EYES: Normal conjunctiva. Sclera non-icteric. Pupils are midrange appropriate for lighting and reactive. No nystagmus. NECK: Supple. No nuchal rigidity. FROM. No JVD. RESPIRATORY: Clear to auscultation. CARDIAC: Regular rate, normal rhythm. Extremities warm and well perfused. Pulses equal. ABDOMEN: Soft, non-distended. No tenderness to palpation. No rebound or guarding. No masses. RECTAL: Deferred. MUSCULOSKELETAL: Chest examination reveals no tenderness. The back is symmetrical on inspection without obvious abnormality. There is no CVA tenderness to palpation. No joint edema. LOWER EXTREMITIES: Left BKA. Otherwise, Mild chronic edema. No discoloration. NEURO: No focal sensory or motor deficits noted. DTR wnl. No clonus. SKIN: No rash or jaundice noted. PSYCH: Endorses depression. Confirms suicide attempt by overdose prior to a rrival. Feels remorseful denies active SI. ED COURSE: Critical Care: I have personally spent greater than 35 minutes of critical care time in the direct management of this patient. This includes bedside care, interpretation of diagnostic studies, and testing, discussion with consultants, patient, and family members, and other required patient management activities. This 35 minutes is in excess of all separately billable procedures. Get Trejo MD Past Med/Surg History Medical History Ambulatory dysfunction Below-knee amputation of left lower extremity CAD (coronary artery disease) CHF (congestive heart failure) Diabetes type 2, controlled Dyslipidemia History of acute renal failure History of cellulitis leg and was sent [facility] History of deep venous thrombosis History of GI bleed (~07/2021) duodenal ulcer Hx of renal calculi Hypertension Pulmonary emboli Surgical History History of cardiac cath 09/30/2022 C X 3 stents-- issues with CHF - follows w/ [facility] will see 11/20/21 History of esophagogastroduodenoscopy (EGD) History of repair of right rotator cuff Hx laparoscopic cholecystectomy Hx of colonoscopy Hx of nephrostomy large kidney stone S/P hernia repair ventral hernia and umbilical hernia repair S/P PICC central line placement with removal Family History Aunt No problems noted. Grandmother (Maternal) Throat cancer Myocardial infarction Grandfather (Maternal) Myocardial infarction Other Coronary heart disease Diabetes No pertinent family history Denies family history of Ovarian cancer Prostate cancer Breast cancer Colorectal cancer Social History Smoking Status: Never smoker Tobacco Type: Cigarettes Cigarettes Per Day: 1 Pack; Second Hand Exposure: No; Do You Dip or Chew Tobacco: No; Hx Alcohol Use: Yes Hx Substance Use: Yes (advised) Prescribed Medications: Marijuana Last Used Substance: Days (ago) Last Used Substance Other:: "weeks ago" Preferred Language: Swedish Communication Ability: Effective Treadle Cut Off Saw Operator Required: No Beliefs That Will Affect Care: None marital status: Current Living Situation: Spouse Current Living Situation Comment: Home current occupational status: disabled How many Children do You have: 2 other: caregiver, 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 Feels Safe at Home: Yes Physical Activity Frequency: Does not Exercise Seatbelt Use: always Sunscreen Use: Yes Assistive Devices: Cane, Prosthesis and Wheelchair Allergies Allergies Allergy/AdvReac Type Severity Reaction Status Date / Time clindamycin Allergy Intermediate Hives Verified 05/28/23 15:18 vancomycin AdvReac Intermediate KYE Verified 05/28/23 15:18 SYNDROME piperacillin [From Zosyn] AdvReac Mild skin rash, Verified 05/28/23 15:18 itching, mild tazobactam [From Zosyn] AdvReac Mild skin rash, Verified 05/28/23 15:18 itching, mild Home Meds Home Medications Medication Instructions Recorded Confirmed multivitamin 1 tab PO QAM 08/15/21 06/20/23 metoprolol succinate 100 mg 100 mg PO DAILY 11/27/22 06/20/23 tablet,extended release 24 hr tirzepatide 15 mg/0.5 mL 15 mg subcut Q7D 06/20/23 06/20/23 subcutaneous pen injector (Faustino) Previous Rx's Medication Instructions Recorded pen needle, diabetic 29 gauge x #100 ea 03/14/20 1/2" (Comfort EZ Pen [place]) blood sugar diagnostic #100 ea 10/04/21 cholestyramine (with sugar) 4 gram 4 g PO BID bile salt diarrhea #60 07/25/22 powder for susp in a packet ea Dexcom G6 Supervisor Fleshing (blood-glucose #1 ea 08/05/22 meter,continuous) Dexcom G6 Sensor (blood-glucose #3 ea 08/05/22 sensor) Dexcom G6 Transmitter #1 ea 08/05/22 (blood-glucose transmitter) albuterol sulfate 90 mcg/actuation 2 puff inhalation Q6H PRN 09/03/22 aerosol inhaler (Ventolin HFA) Shortness Of Breath Or Wheezing #18 grams hydroxyzine HCl 25 mg tablet 25 mg PO DAILY PRN Anxiety #30 tabs 09/03/22 nitroglycerin 0.4 mg sublingual 0.4 mg sublingual PRN PRN chest 09/19/22 tablet (Nitrostat) pain #14 tabs clopidogrel 75 mg tablet 75 mg PO DAILY #90 tabs 11/17/22 bumetanide 2 mg tablet 4 mg PO BID #360 tabs 12/19/22 rosuvastatin 20 mg tablet (Crestor) 20 mg PO HS #90 tabs 12/23/22 doxepin 10 mg capsule 10 mg PO HS #90 caps 03/02/23 cholecalciferol (vitamin D3) 125 5,000 unit PO QAM #90 tabs 03/06/23 mcg (5,000 unit) tablet (Vitamin D3) gabapentin 600 mg tablet 600 mg PO HS #90 tabs 03/11/23 fluoxetine 60 mg tablet 60 mg PO QAM #90 tabs 04/03/23 lisinopril 2.5 mg tablet 2.5 mg PO QAM #90 tabs 04/20/23 empagliflozin 25 mg tablet 25 mg PO DAILY #30 tabs 04/30/23 (Jardiance) Diabetic Shoes #1 ea 05/11/23 insulin regular hum U-500 conc 500 300 unit (0.6 mL) subcut UD #18 mL 05/26/23 unit/mL(3 mL) subcut pen cetirizine 10 mg tablet 10 mg PO QAM #90 tabs 06/01/23 cyclobenzaprine 5 mg tablet 5 mg PO BID PRN muscle spasm #20 06/01/23 tabs warfarin 5 mg tablet See Rx Instructions PO UD #115 tabs 06/05/23 Results & Data (ED) Vital Signs Vital Signs - 24 hr 06/20/23 11:26 06/20/23 11:31 06/20/23 12:22 Pulse Rate 75 74 Pulse Rate [Apical] 67 Pulse Rate from SpO2 Sensor Pulse Rhythm Pulse Rhythm [Apical] Regular Respiratory Rate 18 20 Respiratory Effort / Characteristics Non-Labored Non-Labored Spontaneous Respiratory Depth Normal Normal Respiratory Pattern Blood Pressure 130/75 Blood Pressure [Right Arm] 123/66 Blood Pressure Mean 93 Blood Pressure Mean [Right Arm] 85 Blood Pressure Position [Right Arm] Semi-fowlers Pulse Oximetry 96 97 Oxygen Delivery Method Room Air Room Air Oxygen Flow Rate Sepsis Recent Fever Within 48 Hours No Sepsis New/Unexplained Change in Mental Status N/A Sepsis Action Taken by Nursing No Action Required 06/20/23 12:24 06/20/23 14:11 06/20/23 15:45 Pulse Rate 68 59 L Pulse Rate [Apical] 59 L Pulse Rate from SpO2 Sensor Pulse Rhythm Regular Pulse Rhythm [Apical] Respiratory Rate 18 16 Respiratory Effort / Characteristics Non-Labored Spontaneous Respiratory Depth Normal Respiratory Pattern Regular Blood Pressure Blood Pressure [Right Arm] 93/55 L Blood Pressure Mean Blood Pressure Mean [Right Arm] 67 Blood Pressure Position [Right Arm] Pulse Oximetry 96 92 Oxygen Delivery Method Room Air Nasal Cannula Oxygen Flow Rate 1 Sepsis Recent Fever Within 48 Hours Sepsis New/Unexplained Change in Mental Status Sepsis Action Taken by Nursing 06/20/23 15:55 06/20/23 16:38 06/20/23 19:00 Pulse Rate 57 L Pulse Rate [Apical] 59 L Pulse Rate from SpO2 Sensor 53 L Pulse Rhythm Pulse Rhythm [Apical] Respiratory Rate 18 22 Respiratory Effort / Characteristics Non-Labored Spontaneous Respiratory Depth Normal Respiratory Pattern Blood Pressure Blood Pressure [Right Arm] 99/60 L Blood Pressure Mean Blood Pressure Mean [Right Arm] 73 Blood Pressure Position [Right Arm] Pulse Oximetry 94 96 98 Oxygen Delivery Method Nasal Cannula Room Air Oxygen Flow Rate 1 Sepsis Recent Fever Within 48 Hours Sepsis New/Unexplained Change in Mental Status Sepsis Action Taken by Nursing 06/20/23 19:15 Pulse Rate Pulse Rate [Apical] Pulse Rate from SpO2 Sensor Pulse Rhythm Pulse Rhythm [Apical] Respiratory Rate Respiratory Effort / Characteristics Respiratory Depth Respiratory Pattern Blood Pressure Blood Pressure [Right Arm] 96/56 L Blood Pressure Mean Blood Pressure Mean [Right Arm] 69 Blood Pressure Position [Right Arm] Pulse Oximetry Oxygen Delivery Method Oxygen Flow Rate Sepsis Recent Fever Within 48 Hours Sepsis New/Unexplained Change in Mental Status Sepsis Action Taken by Nursing Laboratory Data Attestation: I reviewed the patient's lab results. 06/20/23 11:45 06/20/23 11:45 Lab Results 06/20/23 06/20/23 06/20/23 Range/Units 11:45 11:45 11:45 WBC 9.26 (4.8-10.8) K/ul RBC 5.36 (4.70-6.10) M/uL Hgb 15.9 (14.0-18.0) g/dl Hct 46.4 (42.0-52.0) % MCV 86.6 (80.0-100.0) fL MCH 29.7 (25.0-34.0) pg MCHC 34.3 (32.0-36.0) g/dL RDW Std Deviation 45.9 (36.4-46.3) fL RDW Coeff of Wil 14.6 H (11.5-14.5) % Plt Count 249 (130-400) K/uL MPV 9.8 (9.4-12.4) fL Immature Gran % (Auto) 0.4 % Neut % (Auto) 62.0 % Lymph % (Auto) 25.7 % [place] % (Auto) 7.6 % Eos % (Auto) 4.0 % Baso % (Auto) 0.3 % Neut # (Auto) 5.74 (1.40-6.50) K/uL Lymph # (Auto) 2.38 (1.20-3.40) K/uL [place] # (Auto) 0.70 H (0.11-0.59) K/uL Eos # (Auto) 0.37 (0.00-0.50) K/uL Baso # (Auto) 0.03 (0.00-0.20) K/uL Immature Gran # (Auto) 0.04 (0.01-0.20) K/uL PT 28.2 H (9.0-12.0) Seconds INR 2.7 H (0.9-1.1) Sodium 140 (136-145) mmol/L Potassium 3.3 L (3.5-5.1) mmol/L Chloride 101 (98-107) mmol/L Carbon Dioxide 30 (21-32) mmol/L Anion Gap 9 (3-11) BUN 19 (6-23) mg/dl Creatinine 1.17 (0.6-1.4) mg/dl Est Cr Clr Drug Dosing Not Reportable Est GFR ( Amer) 80.9 ml/min Est GFR (Non-Af Amer) 69.8 ml/min BUN/Creatinine Ratio 16.2 (10-20) Glucose 90 (70-99(Fasting)) mg/dl POC Glucose (70-99) mg/dl Calcium 9.4 (8.6-10.3) mg/dl Magnesium 2.0 (1.7-2.4) mg/dl Total Bilirubin 1.0 (0.2-1.0) mg/dl AST 22 (13-39) U/L ALT 16 (7-52) U/L Alkaline Phosphatase 101 (34-104) U/L Total Protein 8.1 (6.0-8.3) gm/dl Albumin 4.4 (3.4-5.0) gm/dl Globulin 3.7 (2.5-4.0) gm/dl Albumin/Globulin Ratio 1.2 (0.9-2) TSH (0.300-4.500) uIu/ml Urine Color Urine Appearance (Clear) Urine pH (4.5-7.5) Ur Specific [place] (1.000-1.030) Urine Protein (Negative) Urine Glucose (UA) (Negative) Urine Ketones (Negative) Urine Blood (Negative) Urine Nitrite (Negative) Urine Bilirubin (Negative) Urine Urobilinogen (Negative) Ur Leukocyte Esterase (Negative) Urine WBC (Auto) (0-5) /hpf Urine RBC (Auto) (0-4) /hpf U Hyaline Cast (Auto) (0-5) /lpf U Epithel Cells (Auto) (0-5) /lpf Urine Bacteria (Auto) (Negative) Urine Yeast (None Prsent) Urine Sperm (None Prsent) Salicylates (3.0-30) mg/dl Urine Opiates Screen (Neg) Ur Methadone, Qual (Neg) Acetaminophen (10-30) ug/ml Urine Barbiturates (Neg) Ur Phencyclidine (PCP) (Neg) U Amphetamin/Meth Scrn (Neg) MDMA (Ecstasy) Screen (Neg) U Benzodiazepines Scrn (Neg) Ur Cocaine Metabolite (Neg) U Marijuana (THC) Screen (Neg) Ethyl Alcohol mg/dL (<10.0) mg/dl 06/20/23 06/20/23 06/20/23 Range/Units 11:45 11:45 11:45 WBC (4.8-10.8) K/ul RBC (4.70-6.10) M/uL Hgb (14.0-18.0) g/dl Hct (42.0-52.0) % MCV (80.0-100.0) fL MCH (25.0-34.0) pg MCHC (32.0-36.0) g/dL RDW Std Deviation (36.4-46.3) fL RDW Coeff of Wil (11.5-14.5) % Plt Count (130-400) K/uL MPV (9.4-12.4) fL Immature Gran % (Auto) % Neut % (Auto) % Lymph % (Auto) % [place] % (Auto) % Eos % (Auto) % Baso % (Auto) % Neut # (Auto) (1.40-6.50) K/uL Lymph # (Auto) (1.20-3.40) K/uL [place] # (Auto) (0.11-0.59) K/uL Eos # (Auto) (0.00-0.50) K/uL Baso # (Auto) (0.00-0.20) K/uL Immature Gran # (Auto) (0.01-0.20) K/uL PT (9.0-12.0) Seconds INR (0.9-1.1) Sodium (136-145) mmol/L Potassium (3.5-5.1) mmol/L Chloride (98-107) mmol/L Carbon Dioxide (21-32) mmol/L Anion Gap (3-11) BUN (6-23) mg/dl Creatinine (0.6-1.4) mg/dl Est Cr Clr Drug Dosing Est GFR ( Amer) ml/min Est GFR (Non-Af Amer) ml/min BUN/Creatinine Ratio (10-20) Glucose (70-99(Fasting)) mg/dl POC Glucose (70-99) mg/dl Calcium (8.6-10.3) mg/dl Magnesium (1.7-2.4) mg/dl Total Bilirubin (0.2-1.0) mg/dl AST (13-39) U/L ALT (7-52) U/L Alkaline Phosphatase (34-104) U/L Total Protein (6.0-8.3) gm/dl Albumin (3.4-5.0) gm/dl Globulin (2.5-4.0) gm/dl Albumin/Globulin Ratio (0.9-2) TSH 1.502 (0.300-4.500) uIu/ml Urine Color Urine Appearance (Clear) Urine pH (4.5-7.5) Ur Specific [place] (1.000-1.030) Urine Protein (Negative) Urine Glucose (UA) (Negative) Urine Ketones (Negative) Urine Blood (Negative) Urine Nitrite (Negative) Urine Bilirubin (Negative) Urine Urobilinogen (Negative) Ur Leukocyte Esterase (Negative) Urine WBC (Auto) (0-5) /hpf Urine RBC (Auto) (0-4) /hpf U Hyaline Cast (Auto) (0-5) /lpf U Epithel Cells (Auto) (0-5) /lpf Urine Bacteria (Auto) (Negative) Urine Yeast (None Prsent) Urine Sperm (None Prsent) Salicylates < 3.0 L (3.0-30) mg/dl Urine Opiates Screen (Neg) Ur Methadone, Qual (Neg) Acetaminophen < 3 L (10-30) ug/ml Urine Barbiturates (Neg) Ur Phencyclidine (PCP) (Neg) U Amphetamin/Meth Scrn (Neg) MDMA (Ecstasy) Screen (Neg) U Benzodiazepines Scrn (Neg) Ur Cocaine Metabolite (Neg) U Marijuana (THC) Screen (Neg) Ethyl Alcohol mg/dL < 10.0 (<10.0) mg/dl 06/20/23 06/20/23 06/20/23 Range/Units 12:25 12:25 19:11 WBC (4.8-10.8) K/ul RBC (4.70-6.10) M/uL Hgb (14.0-18.0) g/dl Hct (42.0-52.0) % MCV (80.0-100.0) fL MCH (25.0-34.0) pg MCHC (32.0-36.0) g/dL RDW Std Deviation (36.4-46.3) fL RDW Coeff of Wil (11.5-14.5) % Plt Count (130-400) K/uL MPV (9.4-12.4) fL Immature Gran % (Auto) % Neut % (Auto) % Lymph % (Auto) % [place] % (Auto) % Eos % (Auto) % Baso % (Auto) % Neut # (Auto) (1.40-6.50) K/uL Lymph # (Auto) (1.20-3.40) K/uL [place] # (Auto) (0.11-0.59) K/uL Eos # (Auto) (0.00-0.50) K/uL Baso # (Auto) (0.00-0.20) K/uL Immature Gran # (Auto) (0.01-0.20) K/uL PT (9.0-12.0) Seconds INR (0.9-1.1) Sodium (136-145) mmol/L Potassium (3.5-5.1) mmol/L Chloride (98-107) mmol/L Carbon Dioxide (21-32) mmol/L Anion Gap (3-11) BUN (6-23) mg/dl Creatinine (0.6-1.4) mg/dl Est Cr Clr Drug Dosing Est GFR ( Amer) ml/min Est GFR (Non-Af Amer) ml/min BUN/Creatinine Ratio (10-20) Glucose (70-99(Fasting)) mg/dl POC Glucose 52 L* (70-99) mg/dl Calcium (8.6-10.3) mg/dl Magnesium (1.7-2.4) mg/dl Total Bilirubin (0.2-1.0) mg/dl AST (13-39) U/L ALT (7-52) U/L Alkaline Phosphatase (34-104) U/L Total Protein (6.0-8.3) gm/dl Albumin (3.4-5.0) gm/dl Globulin (2.5-4.0) gm/dl Albumin/Globulin Ratio (0.9-2) TSH (0.300-4.500) uIu/ml Urine Color Yellow Urine Appearance Turbid A (Clear) Urine pH 6.5 (4.5-7.5) Ur Specific [place] 1.013 (1.000-1.030) Urine Protein 1+ H (Negative) Urine Glucose (UA) 3+ H (Negative) Urine Ketones Negative (Negative) Urine Blood 2+ H (Negative) Urine Nitrite Negative (Negative) Urine Bilirubin Negative (Negative) Urine Urobilinogen Negative (Negative) Ur Leukocyte Esterase 3+ H (Negative) Urine WBC (Auto) >30 H (0-5) /hpf Urine RBC (Auto) 0-4 (0-4) /hpf U Hyaline Cast (Auto) 1-5 (0-5) /lpf U Epithel Cells (Auto) >30 H (0-5) /lpf Urine Bacteria (Auto) 1+ H (Negative) Urine Yeast Present A (None Prsent) Urine Sperm Present A (None Prsent) Salicylates (3.0-30) mg/dl Urine Opiates Screen Neg (Neg) Ur Methadone, Qual Neg (Neg) Acetaminophen (10-30) ug/ml Urine Barbiturates Neg (Neg) Ur Phencyclidine (PCP) Neg (Neg) U Amphetamin/Meth Scrn Neg (Neg) MDMA (Ecstasy) Screen Neg (Neg) U Benzodiazepines Scrn Neg (Neg) Ur Cocaine Metabolite Neg (Neg) U Marijuana (THC) Screen Pos H (Neg) Ethyl Alcohol mg/dL (<10.0) mg/dl 06/20/23 Range/Units 19:13 WBC (4.8-10.8) K/ul RBC (4.70-6.10) M/uL Hgb (14.0-18.0) g/dl Hct (42.0-52.0) % MCV (80.0-100.0) fL MCH (25.0-34.0) pg MCHC (32.0-36.0) g/dL RDW Std Deviation (36.4-46.3) fL RDW Coeff of Wil (11.5-14.5) % Plt Count (130-400) K/uL MPV (9.4-12.4) fL Immature Gran % (Auto) % Neut % (Auto) % Lymph % (Auto) % [place] % (Auto) % Eos % (Auto) % Baso % (Auto) % Neut # (Auto) (1.40-6.50) K/uL Lymph # (Auto) (1.20-3.40) K/uL [place] # (Auto) (0.11-0.59) K/uL Eos # (Auto) (0.00-0.50) K/uL Baso # (Auto) (0.00-0.20) K/uL Immature Gran # (Auto) (0.01-0.20) K/uL PT (9.0-12.0) Seconds INR (0.9-1.1) Sodium (136-145) mmol/L Potassium (3.5-5.1) mmol/L Chloride (98-107) mmol/L Carbon Dioxide (21-32) mmol/L Anion Gap (3-11) BUN (6-23) mg/dl Creatinine (0.6-1.4) mg/dl Est Cr Clr Drug Dosing Est GFR ( Amer) ml/min Est GFR (Non-Af Amer) ml/min BUN/Creatinine Ratio (10-20) Glucose (70-99(Fasting)) mg/dl POC Glucose 57 L* (70-99) mg/dl Calcium (8.6-10.3) mg/dl Magnesium (1.7-2.4) mg/dl Total Bilirubin (0.2-1.0) mg/dl AST (13-39) U/L ALT (7-52) U/L Alkaline Phosphatase (34-104) U/L Total Protein (6.0-8.3) gm/dl Albumin (3.4-5.0) gm/dl Globulin (2.5-4.0) gm/dl Albumin/Globulin Ratio (0.9-2) TSH (0.300-4.500) uIu/ml Urine Color Urine Appearance (Clear) Urine pH (4.5-7.5) Ur Specific [place] (1.000-1.030) Urine Protein (Negative) Urine Glucose (UA) (Negative) Urine Ketones (Negative) Urine Blood (Negative) Urine Nitrite (Negative) Urine Bilirubin (Negative) Urine Urobilinogen (Negative) Ur Leukocyte Esterase (Negative) Urine WBC (Auto) (0-5) /hpf Urine RBC (Auto) (0-4) /hpf U Hyaline Cast (Auto) (0-5) /lpf U Epithel Cells (Auto) (0-5) /lpf Urine Bacteria (Auto) (Negative) Urine Yeast (None Prsent) Urine Sperm (None Prsent) Salicylates (3.0-30) mg/dl Urine Opiates Screen (Neg) Ur Methadone, Qual (Neg) Acetaminophen (10-30) ug/ml Urine Barbiturates (Neg) Ur Phencyclidine (PCP) (Neg) U Amphetamin/Meth Scrn (Neg) MDMA (Ecstasy) Screen (Neg) U Benzodiazepines Scrn (Neg) Ur Cocaine Metabolite (Neg) U Marijuana (THC) Screen (Neg) Ethyl Alcohol mg/dL (<10.0) mg/dl Administered Medications Discontinued Medications Dextrose (Dextrose 50% 50 Ml Syringe) 50 ml IV NOW ONE Stop: 06/20/23 19:24 Last Admin: 06/20/23 19:26 Dose: 50 ml Documented By: TRACY Potassium Chloride (K Mike / Wtr) 10 meq in 100 mls @ 100 mls/hr IV Q1H STANLEY Stop: 06/20/23 14:44 Last Infusion: 06/20/23 15:55 Dose: 0 mls/hr Documented By: Admin: 06/20/23 14:50 Dose: 100 mls/hr Documented By: Infusion: 06/20/23 14:45 Dose: 0 mls/hr Documented By: Admin: 06/20/23 13:32 Dose: 100 mls/hr Documented By: NATALY Discharge Plan Visit Data Chief Complaint: Overdose (Intentional) Stated Complaint: OVERDOSE ED Provider: Get Trejo Discharge Problem: Suicide attempt by drug overdose, Depression, Hypokalemia, Somnolence, QT prolongation Forms Stand Alone Forms: [facility], Suicide Prevention Resources Prescriptions Prescriptions: No Action (DME) pen needle, diabetic [Comfort EZ Pen [place]] 29 gauge x 1/2" needle See Rx Instructions .ROUTE .MEDSUPPLY Qty: 100 5RF Rx Instructions: As directed- use five times daily (DME) blood sugar diagnostic Strip See Rx Instructions .ROUTE .MEDSUPPLY Qty: 100 5RF Rx Instructions: As directed to test blood sugar 4 times daily (DME) Dexcom G6 Supervisor Fleshing Misc See Rx Instructions .Route Qty: 1 0RF Rx Instructions: Use for continuous blood glucose monitoring (DME) Dexcom G6 Sensor Device See Rx Instructions .Route Qty: 3 11RF Rx Instructions: Use for continuous blood glucose monitoring. Replace sensor every 10 days (DME) Dexcom G6 Transmitter Device See Rx Instructions .Route Qty: 1 3RF Rx Instructions: Use for continuous blood glucose monitoring. Replace transmitter every 90 days hydroxyzine HCl 25 mg tablet 25 mg PO DAILY PRN (Reason: Anxiety) Qty: 30 5RF Rx Instructions: 25 mg PO daily as needed PRN; albuterol sulfate [Ventolin HFA] 90 mcg/actuation HFA aerosol inhaler 2 puff INHALATION Q6H PRN (Reason: Shortness Of Breath Or Wheezing) Qty: 18 3RF clopidogrel 75 mg tablet 75 mg PO DAILY Qty: 90 3RF bumetanide 2 mg tablet 4 mg PO BID Qty: 360 3RF rosuvastatin [Crestor] 20 mg tablet 20 mg PO HS Qty: 90 3RF Rx Instructions: for cholesterol doxepin 10 mg capsule 10 mg PO HS Qty: 90 1RF Rx Instructions: 10 mg PO at bedtime; cholecalciferol (vitamin D3) [Vitamin D3] 125 mcg (5,000 unit) tablet 5,000 unit PO QAM Qty: 90 3RF gabapentin 600 mg tablet 600 mg PO HS Qty: 90 1RF fluoxetine 60 mg tablet 60 mg PO QAM Qty: 90 3RF lisinopril 2.5 mg tablet 2.5 mg PO QAM Qty: 90 1RF Jardiance 25 mg tablet 25 mg PO DAILY Qty: 30 2RF (DME) Diabetic Shoes Misc See Rx Instructions .Route Qty: 1 0RF Rx Instructions: As directed insulin regular hum U-500 conc 500 unit/mL (3 mL) insulin pen 300 unit subcut UD MDD 300 units a day Qty: 18 5RF Rx Instructions: 100 units of u 500 before breakfast, lunch and dinner. Up to a total daily dose of 300 units a day cyclobenzaprine 5 mg tablet 5 mg PO BID PRN (Reason: muscle spasm) Qty: 20 0RF cetirizine 10 mg tablet 10 mg PO QAM Qty: 90 1RF warfarin 5 mg tablet See Rx Instructions PO UD Qty: 115 0RF Rx Instructions: 5mg q Thursday, Thursday, Thursday, 7.5mg x 4 days per [facility] orally use as directed; multivitamin Tablet 1 tab PO QAM cholestyramine (with sugar) 4 gram powder in packet 4 g PO BID Qty: 60 3RF Rx Instructions: administer w/meal; avoid other meds within 1hr before or 4-6hr after dose metoprolol succinate 100 mg tablet extended release 24 hr 100 mg PO DAILY nitroglycerin [Nitrostat] 0.4 mg Tablet, Sublingual 0.4 mg sublingual PRN PRN (Reason: chest pain) Qty: 14 0RF Mounjaro 15 mg/0.5 mL pen injector 15 mg subcut Q7D Referrals Referrals: Mike Isidro MD [Primary Care Provider] -
[2023-06-20 12:05] LABS: Basophils # (auto) 0.03 K/uL (0.00-0.20); Basophils % (auto) 0.3 %; Eosinophils # (auto) 0.37 K/uL (0.00-0.50); Hematocrit (blood only) 46.4 % (42.0-52.0); Hemoglobin 15.9 g/dl (14.0-18.0); Immature Granulocytes # (auto) 0.04 K/uL (0.01-0.20); Immature Granulocytes % (auto) 0.4 %; Lymphocytes # (auto) 2.38 K/uL (1.20-3.40); Lymphocytes % (auto) 25.7 %; Mean Corpuscular Hemoglobin 29.7 pg (25.0-34.0); Mean Corpuscular Hgb Conc 34.3 g/dL (32.0-36.0); Mean Corpuscular Volume 86.6 fL (80.0-100.0); Mean Platelet Volume 9.8 fL (9.4-12.4); Monocytes % (auto) 7.6 %; Neutrophils # (auto) 5.74 K/uL (1.40-6.50); Platelet Count 249 K/uL (130-400); RDW Coefficient of Variation 14.6 % (11.5-14.5); RDW Standard Deviation 45.9 fL (36.4-46.3); Red Blood Count 5.36 M/uL (4.70-6.10); White Blood Count 9.26 K/ul (4.8-10.8)
[2023-06-20 12:13] LABS: INR 2.7 (0.9-1.1); Prothrombin Time 28.2 Seconds (9.0-12.0)
[2023-06-20 12:22] LABS: Alanine Aminotransferase 16 U/L (7-52); Albumin Globulin Ratio 1.2 (0.9-2); Albumin Level 4.4 gm/dl (3.4-5.0); Alkaline Phosphatase 101 U/L (34-104); Anion Gap 9 (3-11); Aspartate Aminotransferase 22 U/L (13-39); BUN Creatinine Ratio 16.2 (10-20); Blood Urea Nitrogen 19 mg/dl (6-23); Calcium 9.4 mg/dl (8.6-10.3); Carbon Dioxide 30 mmol/L (21-32); Chloride 101 mmol/L (98-107); Est GFR (African American) 80.9 ml/min; Est GFR (Non-African American) 69.8 ml/min; Globulin 3.7 gm/dl (2.5-4.0); Glucose 90 mg/dl (70-99(Fasting)); Potassium 3.3 mmol/L (3.5-5.1); Sodium 140 mmol/L (136-145); Total Protein 8.1 gm/dl (6.0-8.3)
[2023-06-20 13:15] LABS: Appearance Urine Turbid (Clear); Bilirubin Urine Negative (Negative); Blood Urine 2+ (Negative); Color Urine Yellow; Epithelial Cell Urine Auto >30 /lpf (0-5); Glucose Urine UA 3+ (Negative); Ketones Urine Negative (Negative); Leukocyte Esterase Urine 3+ (Negative); Nitrite Urine Negative (Negative); Protein Urine 1+ (Negative); Specific Gravity Urine 1.013 (1.000-1.030); Urobilinogen Urine Negative (Negative); WBC Urine Automated >30 /hpf (0-5); pH Urine 6.5 (4.5-7.5)
[2023-06-20] MEDS: POTASSIUM CHLORIDE / WTR 10 MEQ/100 ML PLCT IV SCH ×2 (13:32→14:50)
[2023-06-20 13:34] LABS: Acetaminophen < 3 ug/ml (10-30); Salicylate < 3.0 mg/dl (3.0-30)
[2023-06-20 13:35] LABS: Sperm Urine Present (None Prsent)
[2023-06-20 13:36] LABS: Bacteria Urine Automated 1+ (Negative); RBC Urine Automated 0-4 /hpf (0-4)
[2023-06-20 13:41] LABS: Amphetamines+Metham, Urine Neg (Neg); Barbiturates, Urine Neg (Neg); Benzodiazepine, Urine Neg (Neg); Cocaine, Urine Neg (Neg); MDMA (Ecstacy), Urine Neg (Neg); Methadone, Urine Neg (Neg); Opiate, Urine Neg (Neg); Phencyclidine, Urine Neg (Neg)
--- NOTE | 2023-06-20 18:42 | History & Physical Report ---
Date of Service June 20, 2023 Assessment & Plan (1) Intentional overdose: Plan: Intentional overdose Ingestion at approximately 10 AM. Ingestion included up to 50 tablets of hydroxyzine 25 mg each, and 20 tablets of 600 mg gabapentin Case was discussed with poison control. Did recommend that patient could be discharged home after 6 hours, around 4 PM if asymptomatic, but given that patient has had prolonged sedation is recommended for overnight monitoring. Admitted to medical telemetry. QT is baseline around 460, currently stable at 520. Magnesium 2.0. Guarding airway, awakens easily but falls back asleep easily at time of admission BSG trended Acetaminophen negative Salicylate negative Medical alcohol negative EKG: QTc 520 Supportive care. Currently without airway compromise, patient is arousable. No evidence of BARREL WATERER depression. Respiratory rate is normal. No evidence of gabapentin induced seizure, if prolonged seizure activity more than 1 minute then may administer IV Ativan. Do not use unless seizure sustained due to risk of BARREL WATERER depression exacerbation, and must be differentiated from brief nonsustained myoclonic jerks which are likely to occur due to gabapentin overdose Renal function is normal at baseline. No indication for hemodialysis at this time Potassium 3.3, repleted Anxiety/depression Patient did exhibit immediate remorse and notes that he took these medications impulsively following argument with his significant other Behavioral health is consulted, continue suicide precautions at this time 3 S. is aware of patient, given immediate remorseness and impulsive ingestion unlikely to need U admission but will continue to follow at this time History of CHF, CAD, hyperlipidemia, PCI 10/2022 with SIMONE in RCA/LAD Continue home Bumex, Plavix, metoprolol. Rosuvastatin temporarily held in the setting of potentially toxic ingestion No sleep apnea on prior sleep study Dry weight approximately for 20 pounds. No oxygen requirement at time of admission. History of type II DM Hold home antiglycemic's Basal bolus insulin while inpatient Glucose checks AC/at bedtime, goal [id number] Last echo 01/202323 grade 1 diastolic dysfunction, EF grossly normal No chest pain, chest pressure admission ? UTI versus asymptomatic bacteriuria versus contaminated UA Denies urinary symptoms. Contaminant pharynx appears benign. Follow for symptoms, can repeat UA if concern for true infection. Antibiotics deferred DVT prophylaxis: Anticoagulated, continue to trend INR. Within therapeutic range on admission Disposition: Medical telemetry. Suicide precautions CODE STATUS: Full code Diet: DM 2 (2) Hypertension: (3) Dyslipidemia: (4) Asthma: History of Present Illness Primary Care Provider: Mike Isidro MD Wyatt is a 53-year-old male with past medical history of hypertension, type II DM, hyperlipidemia, CAD, PE, CHF, anxiety/depression who presented to the ER after an intentional ingestion with suicidality of hydroxyzine and gabapentin. He is displaying prolonged sedation and is a prolonged QT and is recommended for overnight medical observation prior to discharge due to prolonged symptoms. Wyatt is seen at the bedside, history is limited due to sedation. He awakens transiently and answers a few questions before falling asleep, and occasionally falls asleep in between sentences. Confirms ingestion around 10:00 this morning hydroxyzine and gabapentin, denies any other ingestion. He reports he felt impulsive and no longer feels suicidal but is tired. Denies chest pain, chest pressure. Additional history limited by patient falling back asleep Allergies Allergy/AdvReac Type Severity Reaction Status Date / Time clindamycin Allergy Intermediate Hives Verified 05/28/23 15:18 vancomycin AdvReac Intermediate KYE Verified 05/28/23 15:18 SYNDROME piperacillin [From Zosyn] AdvReac Mild skin rash, Verified 05/28/23 15:18 itching, mild tazobactam [From Zosyn] AdvReac Mild skin rash, Verified 05/28/23 15:18 itching, mild Home Medications Medication Instructions Recorded Confirmed Type pen needle, diabetic 29 gauge x #100 ea 03/14/20 06/18/23 Rx 1/2" (Comfort EZ Pen [place]) multivitamin 1 tab PO QAM 08/15/21 06/20/23 History blood sugar diagnostic #100 ea 10/04/21 06/18/23 Rx cholestyramine (with sugar) 4 gram 4 g PO BID bile salt diarrhea #60 07/25/22 06/20/23 Rx powder for susp in a packet ea Dexcom G6 Compensation Programs Manager (blood-glucose #1 ea 08/05/22 06/18/23 Rx meter,continuous) Dexcom G6 Sensor (blood-glucose #3 ea 08/05/22 06/18/23 Rx sensor) Dexcom G6 Transmitter #1 ea 08/05/22 06/18/23 Rx (blood-glucose transmitter) albuterol sulfate 90 mcg/actuation 2 puff inhalation Q6H PRN 09/03/22 06/20/23 Rx aerosol inhaler (Ventolin HFA) Shortness Of Breath Or Wheezing #18 grams hydroxyzine HCl 25 mg tablet 25 mg PO DAILY PRN Anxiety #30 tabs 09/03/22 06/20/23 Rx nitroglycerin 0.4 mg sublingual 0.4 mg sublingual PRN PRN chest 09/19/22 06/20/23 Rx tablet (Nitrostat) pain #14 tabs clopidogrel 75 mg tablet 75 mg PO DAILY #90 tabs 11/17/22 06/20/23 Rx metoprolol succinate 100 mg 100 mg PO DAILY 11/27/22 06/20/23 History tablet,extended release 24 hr bumetanide 2 mg tablet 4 mg PO BID #360 tabs 12/19/22 06/20/23 Rx rosuvastatin 20 mg tablet (Crestor) 20 mg PO HS #90 tabs 12/23/22 06/20/23 Rx doxepin 10 mg capsule 10 mg PO HS #90 caps 03/02/23 06/20/23 Rx cholecalciferol (vitamin D3) 125 5,000 unit PO QAM #90 tabs 03/06/23 06/20/23 Rx mcg (5,000 unit) tablet (Vitamin D3) gabapentin 600 mg tablet 600 mg PO HS #90 tabs 03/11/23 06/20/23 Rx fluoxetine 60 mg tablet 60 mg PO QAM #90 tabs 04/03/23 06/20/23 Rx lisinopril 2.5 mg tablet 2.5 mg PO QAM #90 tabs 04/20/23 06/20/23 Rx empagliflozin 25 mg tablet 25 mg PO DAILY #30 tabs 04/30/23 06/20/23 Rx (Jardiance) Diabetic Shoes #1 ea 05/11/23 06/18/23 Rx insulin regular hum U-500 conc 500 300 unit (0.6 mL) subcut UD #18 mL 05/26/23 06/20/23 Rx unit/mL(3 mL) subcut pen cetirizine 10 mg tablet 10 mg PO QAM #90 tabs 06/01/23 06/20/23 Rx cyclobenzaprine 5 mg tablet 5 mg PO BID PRN muscle spasm #20 06/01/23 06/20/23 Rx tabs warfarin 5 mg tablet See Rx Instructions PO UD #115 tabs 06/05/23 06/20/23 Rx tirzepatide 15 mg/0.5 mL 15 mg subcut Q7D 06/20/23 06/20/23 History subcutaneous pen injector (Faustino) Past Med/Surg History Medical History History of acute renal failure History of cellulitis History of GI bleed (~07/2021) Hx of renal calculi Surgical History History of cardiac cath History of esophagogastroduodenoscopy (EGD) History of repair of right rotator cuff Hx laparoscopic cholecystectomy Hx of colonoscopy Hx of nephrostomy S/P hernia repair S/P PICC central line placement Family History Aunt No problems noted. Grandmother (Maternal) Throat cancer Myocardial infarction Grandfather (Maternal) Myocardial infarction Other Coronary heart disease Diabetes No pertinent family history Denies family history of Ovarian cancer Prostate cancer Breast cancer Colorectal cancer Social History Smoking Status: Never smoker Tobacco Type: Cigarettes Cigarettes Per Day: 1 Pack; Second Hand Exposure: No; Do You Dip or Chew Tobacco: No; Hx Alcohol Use: Yes Hx Substance Use: Yes (advised) Prescribed Medications: Marijuana Last Used Substance: Days (ago) Last Used Substance Other:: "weeks ago" Preferred Language: Moldovan Communication Ability: Effective Business Development Sales Executive Required: No Beliefs That Will Affect Care: None marital status: Current Living Situation: Spouse Current Living Situation Comment: Home current occupational status: disabled How many Children do You have: 2 other: caregiver, 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 Feels Safe at Home: Yes Physical Activity Frequency: Does not Exercise Seatbelt Use: always Sunscreen Use: Yes Assistive Devices: Cane, Prosthesis and Wheelchair Physical Exam Physical Exam: General: Somnolent, awakens easily but falls back asleep quickly. Answers some questions appropriately before falling back asleep. Guarding or HEENT: Atraumatic, normocephalic. Pulm: CTAB A&P. -wheezes, -rales, -rhonchi. Symmetrical chest rise. No increased work of breathing. No respiratory distress. Cardiac: RRR, -mrg. Radial pulses intact and symmetrical. Abdominal: Nontender, nondistended, soft. BS present. Extremities: Left BKA. Right lower extremity intact. Strength/sensation limited by sedation but patient does withdraw and awaken to noxious Results & Data Results & Data Vital Signs (Past 12 Hours) Vital Signs Pulse Pulse Resp BP BP Pulse Ox O2 Del Method 06/20/23 16:38 96 Room Air 06/20/23 15:55 59 L 18 99/60 L 94 Nasal Cannula 06/20/23 15:45 59 L 06/20/23 14:11 59 L 16 93/55 L 92 Nasal Cannula 06/20/23 12:24 68 18 96 Room Air 06/20/23 12:22 67 20 123/66 97 Room Air 06/20/23 11:31 74 06/20/23 11:26 75 18 130/75 96 Room Air O2 Flow Rate 06/20/23 16:38 06/20/23 15:55 1 06/20/23 15:45 06/20/23 14:11 1 06/20/23 12:24 06/20/23 12:22 06/20/23 11:31 06/20/23 11:26 PG Care Time/CCT Total # of Minutes Spent Total Time Spent with Patient: Total time spent is greater than 50% in coordination of care (as documented) at patient's floor/unit and/or counseling patient: Coding Level of Care Code 22897 INT INP/OBS CARE 3/75MIN Diagnoses Intentional overdose T50.902A Hypertension I10 Dyslipidemia E78.5 Asthma J45.909
[2023-06-20] MEDS ORDERED: GLUCOSE 40% GEL 15 GM TUBE PO PRN (18:44)
[2023-06-20] MEDS ORDERED: GLUCOSE 10 TAB/TUBE PO PRN (18:44)
[2023-06-20] MEDS ORDERED: GLUCAGON FOR INJ 1 MG VIAL SQ PRN (18:44)
[2023-06-20] MEDS ORDERED: CARBOHYDRATES FOR HYPOGLYCEMIA PO PRN (18:44)
[2023-06-20] MEDS ORDERED: DEXTROSE 50% 50 ML SYRINGE IV PRN (18:44)
[2023-06-20] MEDS ORDERED: DEXTROSE 50% 50 ML SYRINGE IV ONE (19:23)
[2023-06-20] MEDS: INSULIN ASPART PER UNIT CHARGE SC SCH (20:17)
[2023-06-20] MEDS: LANTUS PER UNIT CHARGE SQ SCH (20:18)
[2023-06-20] MEDS ORDERED: ALBUTEROL HFA 8 GM INHALER INH PRN (21:31)
[2023-06-20] MEDS ORDERED: NITROGLYCERIN SL 0.4 MG/TAB TAB SL PRN (21:31)
[2023-06-20] MEDS: BUMETANIDE 1 MG TAB PO SCH (21:44)
[2023-06-21] MEDS ORDERED: LOPERAMIDE HCL 2 MG CAP PO STA (03:24)
[2023-06-21 05:18] LABS: Basophils # (auto) 0.03 K/uL (0.00-0.20); Basophils % (auto) 0.3 %; Eosinophils # (auto) 0.38 K/uL (0.00-0.50); Eosinophils % (auto) 3.4 %; Hematocrit (blood only) 43.6 % (42.0-52.0); Hemoglobin 14.8 g/dl (14.0-18.0); Immature Granulocytes # (auto) 0.05 K/uL (0.01-0.20); Immature Granulocytes % (auto) 0.4 %; Lymphocytes # (auto) 2.67 K/uL (1.20-3.40); Lymphocytes % (auto) 23.8 %; Mean Corpuscular Hemoglobin 29.8 pg (25.0-34.0); Mean Corpuscular Hgb Conc 33.9 g/dL (32.0-36.0); Mean Corpuscular Volume 87.7 fL (80.0-100.0); Mean Platelet Volume 9.6 fL (9.4-12.4); Monocytes # (auto) 1.07 K/uL (0.11-0.59); Monocytes % (auto) 9.5 %; Neutrophils # (auto) 7.01 K/uL (1.40-6.50); Neutrophils % (auto) 62.6 %; Platelet Count 210 K/uL (130-400); RDW Coefficient of Variation 14.6 % (11.5-14.5); RDW Standard Deviation 46.5 fL (36.4-46.3); Red Blood Count 4.97 M/uL (4.70-6.10); White Blood Count 11.21 K/ul (4.8-10.8)
[2023-06-21 05:25] LABS: Albumin Globulin Ratio 1.4 (0.9-2); Albumin Level 3.8 gm/dl (3.4-5.0); BUN Creatinine Ratio 18.9 (10-20); Bilirubin,Total 0.8 mg/dl (0.2-1.0); Calcium 9.2 mg/dl (8.6-10.3); Creatinine Clr Calc Pharmacy 128.2 ml/min; Est GFR (African American) 86.2 ml/min; Est GFR (Non-African American) 74.4 ml/min; Globulin 2.8 gm/dl (2.5-4.0); Magnesium 2.1 mg/dl (1.7-2.4); Potassium 3.4 mmol/L (3.5-5.1); Total Protein 6.6 gm/dl (6.0-8.3)
[2023-06-21] MEDS: INSULIN ASPART PER UNIT CHARGE SC SCH ×2 (08:15→13:29)
[2023-06-21] MEDS: BUMETANIDE 1 MG TAB PO SCH (08:48)
[2023-06-21] MEDS ORDERED: CLOPIDOGREL BISULFATE 75 MG TAB PO SCH (09:00)
[2023-06-21] MEDS ORDERED: lisinopril 2.5 MG TAB PO SCH (09:00)
[2023-06-21] MEDS ORDERED: METOPROLOL SUCC 50MG EXT REL TAB PO SCH (09:00)
[2023-06-21] MEDS ORDERED: CETIRIZINE HCL 10 MG TABLET PO SCH (09:00)
[2023-06-21] MEDS ORDERED: CHOLECALCIFEROL 5,000 UNITS 125 MCG TAB PO SCH (09:00)
[2023-06-21] MEDS ORDERED: CHOLESTYRAMINE LIGHT 4 GM PKT PO SCH (09:00)
[2023-06-21] MEDS: LANTUS PER UNIT CHARGE SQ SCH (09:01)
--- NOTE | 2023-06-21 13:12 | Hospitalist Progress Note ---
Date of Service June 21, 2023 Assessment & Plan (1) Intentional overdose: Plan: Intentional overdose Patient said he had some quarrel with his and ingested up to 50 tablets of hydroxyzine 25 mg each, and 20 tablets of 600 mg gabapentin. His intent was suicide Case was discussed with poison control. Did recommend that patient could be discharged home after 6 hours, around 4 PM if asymptomatic, but given that patient has had prolonged sedation is recommended for overnight monitoring. -However, given suicidal intent, patient will be evaluated by Psych QT is baseline around 460, currently stable at 520. Magnesium 2.0. He is more awake and alert this morning -Awaiting psych evaluation Anxiety/depression Patient did exhibit immediate remorse and notes that he took these medications impulsively following argument with his significant other Behavioral health is consulted, continue suicide precautions at this time 3 S. is aware of patient, given immediate remorsefulness and impulsive ingestion unlikely to need BHU admission but will continue to follow at this time History of CHF, CAD, hyperlipidemia, PCI 10/2022 with SIMONE in RCA/LAD Continue home Bumex, Plavix, metoprolol. Rosuvastatin temporarily held in the setting of potentially toxic ingestion No sleep apnea on prior sleep study Dry weight approximately for 20 pounds. No oxygen requirement at time of admission. History of type II DM Hold home antiglycemic's Basal bolus insulin while inpatient Glucose checks AC/at bedtime, goal [id number] Last echo 01/202323 grade 1 diastolic dysfunction, EF grossly normal No chest pain, chest pressure admission ? UTI versus asymptomatic bacteriuria versus contaminated UA Denies urinary symptoms. Contaminant pharynx appears benign. Follow for symptoms, can repeat UA if concern for true infection. Antibiotics deferred DVT prophylaxis: Anticoagulated, continue to trend INR. Within therapeutic range on admission Disposition: Medical telemetry. Suicide precautions CODE STATUS: Full code Diet: DM 2 (2) Hypertension: (3) Dyslipidemia: (4) Asthma: Admission and Anticipated Discharge Date Admission Date: June 20, 2023 Subjective patient seen and examined, he feels better, denies any suicidal thoughts. said he has settled a quarrel he had with with his , which led to the drug overdose Review of Systems Review of Systems: All systems reviewed are negative, apart from the ones contained in the history. Physical Exam Physical Exam: The patient is awake, alert and oriented 3, well developed and well nourished, normocephalic and atraumatic, lying in bed and in no acute distress. HEENT--PERRL, EOMI, mucous membranes and oropharynx mildly dry Neck--supple. No JVD. No bruits. Thyroid normal, trachea midline, no adenopathy. Heart--normal S1 and S2. No murmurs, rubs or gallops. Lungs--clear bilaterally, no respiratory distress, no accessory muscle use. Abdomen--normal bowel sounds and soft. Mild epigastric and left sided abdominal pain Extremities--left BKA. Dermatologic--normal skin turgor, normal color, no abnormal lymph nodes, no rash. Neurologic--cranial nerves II through XII grossly intact. Rheumatologic--normal range of motion. Psychiatric--normal affect. Results & Data Results & Data Vital Signs (Past 12 Hours) Vital Signs Pulse Pulse Resp BP BP Pulse Ox Pulse Ox 06/21/23 09:00 64 16 109/57 L 95 06/21/23 08:47 68 13 101/66 95 06/21/23 07:00 59 L 06/21/23 05:20 96 06/21/23 05:15 83 L 06/21/23 04:30 59 L 13 94 06/21/23 04:00 60 15 126/67 93 06/21/23 03:00 59 L 20 111/68 96 06/21/23 02:34 96 06/21/23 02:00 58 L 18 109/80 94 06/21/23 01:38 94 06/21/23 03:00 59 L 16 111/68 96 O2 Del Method O2 Del Method O2 Flow Rate 06/21/23 09:00 Room Air 06/21/23 08:47 Room Air 06/21/23 07:00 06/21/23 05:20 Nasal Cannula 2 06/21/23 05:15 Room Air 06/21/23 04:30 06/21/23 04:00 06/21/23 03:00 Room Air 06/21/23 02:34 06/21/23 02:00 06/21/23 01:38 06/21/23 03:00 Room Air PG Care Time/CCT Total # of Minutes Spent Total Time Spent with Patient: Total time spent is greater than 50% in coordination of care (as documented) at patient's floor/unit and/or counseling patient: Coding Level of Care Code 76954 SUB INP/OBS CARE 2/35MIN Diagnoses Intentional overdose T50.902A Hypertension I10 Dyslipidemia E78.5 Asthma J45.909 Time Spent (min) 35
--- NOTE | 2023-06-21 15:31 | Psychiatric Consultation ---
Date of Consultation June 21, 2023 Impression / Recommendations Eduardo Schneider is a 53 yo man with history of depression, anxiety, chronic pain and multiple medical co-morbidities admitted medically following an intentional overdose suicide attempt. Diagnostically consistent with adjustment disorder with depressed mood in the context of recent stressors including strained relationship with his sons and arguing with his . While his attempt was medically significant, with prolonged QTc, it was very impulsive and his mood has since improved significantly, he has reconciled with his , he states strong deterrents to suicide and he is willing to engage in outpatient care including therapy, engages actively in safety planning, feels safe at home and is willing to make medication adjustments. Acute risk of self-harm is now low given denial of SI, regret of attempt, hopefulness of finding way to re-engage with his sons, states strong deterrents to suicide, future-oriented, presents with euthymic mood and affect, denies symptoms of a major depressive episode, has no access to lethal means and feels well supported by his . Chronic risk is moderate to high given multiple non- modifiable risk factors including psychiatric co-morbid diagnoses (hx depression, anxiety, ADHD, also suspect likely some narcissistic traits), periods of impulsivity, prior attempt, emotional reactivity, chronic pain, chronic illnesses/medical conditions, limited social support, childhood trauma and family history of by suicide but also with protective factors including: good social support from his and peer support, sense of responsibility to family and social supports, [facility] and he's willing to reach out to start outpatient therapy, positive coping skills, positive problem solving, capacity to establish therapeutic alliance, willingness to engage with treatment and capacity for self- observation. Counseled on ways to reduce acute and chronic risk including engaging with outpatient providers (including starting individual therapy and ideally couples therapy), using safety plan if needed, utilizing supports, taking medication, and using coping skills. No current modifiable risk factors to be addressed. Overall, I spent a total of 80 minutes with this case including review of chart records, review of labwork, review of EKG QTc, direct evaluation of the patient at bedside, counseling the patient, discussion of the patient with the Nurse and with the hospitalist provider, discussion with the psychiatric liason during clinical rounds, risk assessment and documentation in the electronic health record. (1) Adjustment disorder with depressed mood: (2) Suicide attempt by drug overdose: (3) QT prolongation: Plan -Does not require 1-on-1 or suicide precautions -Doesn't meet 302 criteria, could leave AMA -Safe for discharge from psychiatric standpoint once medically stable -Hold psych medications for now pending repeat EKG with QTc. If QTc <500ms then could start duloxetine 20mg daily for depression, anxiety and chronic pain. If well tolerated would increase to 40mg in the next 2-4 weeks and then could be titrated further to 60mg daily if well tolerated and to further target mood and pain symptoms. -Discontinue gabapentin. -He completed a safety plan, reviewed crisis resources and [facility] or call 911 or [phone] if he feels unsafe or if he redevelops SI in the future which he agrees to do -He was provided with information for local therapy resources and encouraged to reach out to schedule an appointment once offices open on 06/23/2023 -He was offered Crisis Peer referral and declined since he feels he has good peer support through [facility] [employer] and his home health aids. Psych History Identifying Data 53 yo man with a history of depression, anxiety, chronic pain, obesity, HTN, type II diabetes, HLD, CHF, PE, ambulatory dysfunction with left below the knee amputation, lymphedema admitted medically for prolonged QTc following impulsive suicide attempt via overdose of hydroxyzine and gabapentin. Chief Complaint "It was a stupid in the moment decision, I like life". History of Present Illness Wyatt was admitted medically for prolonged QTc following intentional overdose of hydroxyzine (estimates 50 tabs of an old script for 25mg) and gabapentin (20 tabs of 600mg prescription for chronic pain) impulsively following an argument with his . He describes his attempt as an "outpouring of emotion" in the setting of their argument and "partially to prove a point that I could do it and partially because I was being stupid". He is glad to be alive and very remorseful and regretful of his attempt and the impact it had on his . He acknowledges he has been having more mood shifts (typically from sad to angry) over the last year due to his son's distancing themselves from him and not visiting or responding to his texts as well as getting easily irritable at times. However, he denies any symptoms of hopelessness, worthlessness, anhedonia, self-guilt, sleep/appetite changes, psychomotor or concentration changes related to depression. He thinks fluoxetine has worked well for depression but his feels he has been having more irritability over the last few months. Currently he denies any SI, is future-oriented and states strong deterrents to suicide including "my , my kids, I love seeing the sunrise every morning, fishing, I like life". Does note that he deals with chronic health issues and sometimes thinks he may not live long due to his heart, weight and other issues but adamantly denies that he would ever do anything intentional to bring on his . States multiple times "I would never do something like this again". He currently has a peer support through [employer] who visits him weekly and whom he trusts. He is willing to try therapy again, and possibly couple's therapy. He denies any history of prior suicide attempts, no previous inpatient psych hospitalizations. Has tried many psychiatric medications over the years including: Effexor XR, paxil, sertraline, Celexa, escitalopram and only ever found fluoxetine helpful. Family history of by suicide of his father and sister. Drinks alcohol a few times per year, smokes cigarettes occasionally (estimates 4 in the last week), and smokes marijuana daily which he likes as it helps with physical pain. Feels his biggest stressor is losing his connection with his sons and is very motivated to work on reconnecting with them or finding ways to accept their distancing in therapy. Allergies Allergy/AdvReac Type Severity Reaction Status Date / Time clindamycin Allergy Intermediate Hives Verified 05/28/23 15:18 vancomycin AdvReac Intermediate KYE Verified 05/28/23 15:18 SYNDROME piperacillin [From Zosyn] AdvReac Mild skin rash, Verified 05/28/23 15:18 itching, mild tazobactam [From Zosyn] AdvReac Mild skin rash, Verified 05/28/23 15:18 itching, mild Home Medications Medication Instructions Recorded Confirmed Type pen needle, diabetic 29 gauge x #100 ea 03/14/20 06/18/23 Rx 1/2" (Comfort EZ Pen [place]) multivitamin 1 tab PO QAM 08/15/21 06/20/23 History blood sugar diagnostic #100 ea 10/04/21 06/18/23 Rx cholestyramine (with sugar) 4 gram 4 g PO BID bile salt diarrhea #60 07/25/22 06/20/23 Rx powder for susp in a packet ea Dexcom G6 Electronics Installer (blood-glucose #1 ea 08/05/22 06/18/23 Rx meter,continuous) Dexcom G6 Sensor (blood-glucose #3 ea 08/05/22 06/18/23 Rx sensor) Dexcom G6 Transmitter #1 ea 08/05/22 06/18/23 Rx (blood-glucose transmitter) albuterol sulfate 90 mcg/actuation 2 puff inhalation Q6H PRN 09/03/22 06/20/23 Rx aerosol inhaler (Ventolin HFA) Shortness Of Breath Or Wheezing #18 grams hydroxyzine HCl 25 mg tablet 25 mg PO DAILY PRN Anxiety #30 tabs 09/03/22 06/20/23 Rx nitroglycerin 0.4 mg sublingual 0.4 mg sublingual PRN PRN chest 09/19/22 06/20/23 Rx tablet (Nitrostat) pain #14 tabs clopidogrel 75 mg tablet 75 mg PO DAILY #90 tabs 11/17/22 06/20/23 Rx metoprolol succinate 100 mg 100 mg PO DAILY 11/27/22 06/20/23 History tablet,extended release 24 hr bumetanide 2 mg tablet 4 mg PO BID #360 tabs 12/19/22 06/20/23 Rx rosuvastatin 20 mg tablet (Crestor) 20 mg PO HS #90 tabs 12/23/22 06/20/23 Rx doxepin 10 mg capsule 10 mg PO HS #90 caps 03/02/23 06/20/23 Rx cholecalciferol (vitamin D3) 125 5,000 unit PO QAM #90 tabs 03/06/23 06/20/23 Rx mcg (5,000 unit) tablet (Vitamin D3) gabapentin 600 mg tablet 600 mg PO HS #90 tabs 03/11/23 06/20/23 Rx fluoxetine 60 mg tablet 60 mg PO QAM #90 tabs 04/03/23 06/20/23 Rx lisinopril 2.5 mg tablet 2.5 mg PO QAM #90 tabs 04/20/23 06/20/23 Rx empagliflozin 25 mg tablet 25 mg PO DAILY #30 tabs 04/30/23 06/20/23 Rx (Jardiance) Diabetic Shoes #1 ea 05/11/23 06/18/23 Rx insulin regular hum U-500 conc 500 300 unit (0.6 mL) subcut UD #18 mL 05/26/23 06/20/23 Rx unit/mL(3 mL) subcut pen cetirizine 10 mg tablet 10 mg PO QAM #90 tabs 06/01/23 06/20/23 Rx cyclobenzaprine 5 mg tablet 5 mg PO BID PRN muscle spasm #20 06/01/23 06/20/23 Rx tabs warfarin 5 mg tablet See Rx Instructions PO UD #115 tabs 06/05/23 06/20/23 Rx tirzepatide 15 mg/0.5 mL 15 mg subcut Q7D 06/20/23 06/20/23 History subcutaneous pen injector (Faustino) Patient History Medical History Ambulatory dysfunction Below-knee amputation of left lower extremity CAD (coronary artery disease) CHF (congestive heart failure) Diabetes type 2, controlled Dyslipidemia History of acute renal failure History of cellulitis leg and was sent [facility] History of deep venous thrombosis History of GI bleed (~07/2021) duodenal ulcer Hx of renal calculi Hypertension Pulmonary emboli Surgical History [place] of cardiac [place] [facility] [place]-- issues with CHF - follows w/ [facility] will see 11/20/21 History of esophagogastroduodenoscopy (EGD) History of repair of right rotator cuff Hx laparoscopic cholecystectomy Hx of colonoscopy Hx of nephrostomy large kidney stone S/P hernia repair ventral hernia and umbilical hernia repair S/P PICC central line placement with removal Family History Aunt No problems noted. Grandmother (Maternal) Throat cancer Myocardial infarction Grandfather (Maternal) Myocardial infarction Other Coronary heart disease Diabetes No pertinent family history Denies family history of Ovarian cancer Prostate cancer Breast cancer Colorectal cancer Social History Smoking Status: Former smoker Tobacco Type: Cigarettes Cigarettes Per Day: 1 Pack; Second Hand Exposure: No; Do You Dip or Chew Tobacco: No; Hx Alcohol Use: Yes Hx Substance Use: Yes Prescribed Medications: Marijuana Last Used Substance: Days (ago) Last Used Substance Other:: "weeks ago" Preferred Language: Croatian Communication Ability: Effective Associate Professor Of Archaeology Required: No Beliefs That Will Affect Care: None marital status: Current Living Situation: Spouse Current Living Situation Comment: Home current occupational status: disabled How many Children do You have: 2 other: caregiver, 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 Feels Safe at Home: Yes Safety Concerns: Feels Safe At This Time Physical Activity Frequency: Does not Exercise Seatbelt Use: always Sunscreen Use: Yes Assistive Devices: Cane, Prosthesis and Wheelchair Physical Exam Psychiatric: Orientation: alert, oriented x 3 and cooperative Apperance: appropriately dressed and appropriately groomed Eye Contact: good eye contact Motor Behavior: no abnormal motor movements Speech: normal rate/rhythm/volume of speech Affect: euthymic affect (smiles, makes appropriate jokes at times) Mood: + anxious mood (related to relationship with his sons); no depressed mood Thought Process: clear/coherent thought process and + circumstantial thought process Thought Content: reality based without delusions Suicidal Thoughts: denies suicidal thoughts Homicidal Thoughts: denies homicidal thoughts Hallucinations: no auditory hallucinations and no visual hallucinations Cognition: recent memory grossly intact, remote memory grossly intact, attention grossly intact and language grossly intact Insight: + fair insight Judgment: + limited judgement Vital Signs (Past 24 Hours): Last Vital Signs Temp 36.5 C 06/21/23 00:50 Pulse 64 06/21/23 09:00 Resp 16 06/21/23 09:00 BP 109/57 L 06/21/23 09:00 Pulse Ox 95 06/21/23 09:00 O2 Del Method Room Air 06/21/23 09:00 O2 Flow Rate 2 06/21/23 05:20 Review of Systems All systems reviewed & are unremarkable except as noted in HPI & below Results & Data (PSY) Laboratory Results Na+ and K+ slightly low Diagnostic Findings QTC prolonged 501 ms on EKG last evening Medications Administered Bumetanide (Bumetanide 1 Mg Tab) 4 mg PO BIDM [facility] Stop: 07/20/23 21:30 Last Admin: 06/21/23 08:48 Dose: Not Given Documented By: Admin: 06/20/23 21:44 Dose: Not Given Documented By: TRACY Cetirizine HCl (Cetirizine Hcl 10 Mg Tablet) 10 mg PO QAM [facility] Stop: 07/21/23 08:59 Last Admin: 06/21/23 08:47 Dose: 10 mg Documented By: MASSIEL Cholestyramine Resin (Cholestyramine Light 4 Gm Pkt) 4 gm PO BID [facility] Stop: 07/21/23 08:59 Last Admin: 06/21/23 10:27 Dose: 4 gm Documented By: MASSIEL Clopidogrel Bisulfate (Clopidogrel Bisulfate 75 Mg Tab) 75 mg PO DAILY [facility] Stop: 07/21/23 08:59 Last Admin: 06/21/23 08:46 Dose: 75 mg Documented By: MASSIEL Dextrose (Dextrose 50% 50 Ml Syringe) 25 - 50 ml IV UD PRN; Protocol PRN Reason: Hypoglycemia Protocol Stop: 07/20/23 18:43 Last Admin: 06/20/23 23:45 Dose: 25 ml Documented By: PRECIOUS Insulin Aspart (Insulin Aspart Per Unit Charge) 0 units SC ACHS STANLEY Stop: 07/20/23 20:59 Last Admin: 06/21/23 13:29 Dose: Not Given Documented By: ED Co-signed By: SONAM Admin: 06/21/23 08:15 Dose: Not Given Documented By: Admin: 06/20/23 20:17 Dose: Not Given Documented By: NATALY Co-signed By: TRACY Insulin Glargine (Lantus Per Unit Charge) 17 units SQ BID ST[facility]LEY Stop: 07/20/23 20:59 Last Admin: 06/21/23 09:01 Dose: 17 units Documented By: MASSIEL Co-signed By: MILDRED Admin: 06/20/23 20:18 Dose: Not Given Documented By: NATALY Lisinopril (Lisinopril 2.5 Mg Tab) 2.5 mg PO QAM ST[place]LEY Stop: 07/21/23 08:59 Last Admin: 06/21/23 08:50 Dose: 2.5 mg Documented By: MASSIEL Metoprolol Succinate (Metoprolol Succ 50mg Ext Rel Tab) 100 mg PO DAILY ST[facility]LEY Stop: 07/21/23 08:59 Last Admin: 06/21/23 08:49 Dose: 100 mg Documented By: MASSIEL Vitamin D (Cholecalciferol 5,000 Units 125 Mcg Tab) 5,000 units PO QAM STANLEY Stop: 07/21/23 08:59 Last Admin: 06/21/23 08:45 Dose: 5,000 units Documented By: Coding Level of Care Code 20357 IN/OBS CONSULT LVL 5,80M Diagnoses Adjustment disorder with depressed mood F43.21 Suicide attempt by drug overdose T50.902A QT prolongation R94.31 Time Spent (min) 80
[2023-06-21] MEDS ORDERED: WARFARIN SOD 7.5 MG TAB PO SCH (16:00)
--- NOTE | 2023-06-21 16:05 | Discharge Summary ---
Date of Service June 21, 2023 Admission HPI Per Admitting Provider Wyatt is a 53-year-old male with past medical history of hypertension, type II DM, hyperlipidemia, CAD, PE, CHF, anxiety/depression who presented to the ER after an intentional ingestion with suicidality of hydroxyzine and gabapentin. He is displaying prolonged sedation and is a prolonged QT and is recommended for overnight medical observation prior to discharge due to prolonged symptoms. Wyatt is seen at the bedside, history is limited due to sedation. He awakens transiently and answers a few questions before falling asleep, and occasionally falls asleep in between sentences. Confirms ingestion around 10:00 this morning hydroxyzine and gabapentin, denies any other ingestion. He reports he felt impulsive and no longer feels suicidal but is tired. Denies chest pain, chest pressure. Additional history limited by patient falling back asleep Principal Diagnosis intentional drug overdose Discharge Exam The patient is awake, alert and oriented 3, well developed and well nourished, normocephalic and atraumatic, lying in bed and in no acute distress. HEENT--PERRL, EOMI, mucous membranes and oropharynx mildly dry Neck--supple. No JVD. No bruits. Thyroid normal, trachea midline, no adenopathy. Heart--normal S1 and S2. No murmurs, rubs or gallops. Lungs--clear bilaterally, no respiratory distress, no accessory muscle use. Abdomen--normal bowel sounds and soft. Mild epigastric and left sided abdominal pain Extremities--left BKA. Dermatologic--normal skin turgor, normal color, no abnormal lymph nodes, no rash. Neurologic--cranial nerves II through XII grossly intact. Rheumatologic--normal range of motion. Psychiatric--normal affect. Discharge Data Allergies Allergy/AdvReac Type Severity Reaction Status Date / Time clindamycin Allergy Intermediate Hives Verified 05/28/23 15:18 vancomycin AdvReac Intermediate KYE Verified 05/28/23 15:18 SYNDROME piperacillin [From Zosyn] AdvReac Mild skin rash, Verified 05/28/23 15:18 itching, mild tazobactam [From Zosyn] AdvReac Mild skin rash, Verified 05/28/23 15:18 itching, mild Consultations 06/20/23 17:57 ED Decision to Admit Stat 06/20/23 21:31 Consult Behavioral Health Liaison Routine 06/21/23 11:21 Consult Psychiatry Routine Hospital Course (1) Intentional overdose: Intentional overdose Patient said he had some quarrel with his and ingested up to 50 tablets of hydroxyzine 25 mg each, and 20 tablets of 600 mg gabapentin. His intent was suicide Case was discussed with poison control. Did recommend that patient could be discharged home after 6 hours, around 4 PM if asymptomatic, but given that patient has had prolonged sedation is recommended for overnight monitoring. -However, given suicidal intent, patient will be evaluated by Psych QT is baseline around 460, currently stable at 520. Magnesium 2.0. He is more awake and alert this morning -Psych determined he could be discharged, to follow up outpatient Anxiety/depression Patient did exhibit immediate remorse and notes that he took these medications impulsively following argument with his significant other Behavioral health is consulted, continue suicide precautions at this time 3 S. is aware of patient, given immediate remorsefulness and impulsive ingestion unlikely to need BHU admission but will continue to follow at this time History of CHF, CAD, hyperlipidemia, PCI 10/2022 with [facility] in RCA/LAD Continue home Bumex, Plavix, metoprolol. Rosuvastatin temporarily held in the setting of potentially toxic ingestion No sleep apnea on prior sleep study Dry weight approximately for 20 pounds. No oxygen requirement at time of admission. History of type II DM Hold home antiglycemic's Basal bolus insulin while inpatient Glucose checks AC/at bedtime, goal [id number] Last echo 01/202323 grade 1 diastolic dysfunction, EF grossly normal No chest pain, chest pressure admission ? UTI versus asymptomatic bacteriuria versus contaminated UA Denies urinary symptoms. Contaminant pharynx appears benign. Follow for symptoms, can repeat UA if concern for true infection. Antibiotics deferred DVT prophylaxis: Anticoagulated, continue to trend INR. Within therapeutic range on admission Disposition: Medical telemetry. Suicide precautions CODE STATUS: Full code Diet: DM 2 (2) Hypertension: (3) Dyslipidemia: (4) Asthma: Total Time Total Time Spent Total Time Spent (In Minutes): 35 Discharge Plan Discharge Items Patient Disposition: Home - Self-Care Reason For Visit: GABAPENTIN/HYDROXYZINE INTENTIONAL OVERDOSE Discharge Diagnosis: Intentional Drug overdose Activity: Resume your previous activity Non-emergency contact: Primary Care Provider and Psychiatrist Call non-emergency contact if: you have any medication questions and your symptoms worsen Follow-up/Referrals: Pro,Mike W., MD [Primary Care Provider] - Diet: Regular Addtl Attending Provider Instructions: please make appointment to follow up wit Psychiatry as soon as possible Pending Studies at Discharge: No Stand-Alone Forms: [facility], Smoking Cessation Medications and DC Order Prescriptions: New duloxetine 20 mg capsule, delayed rel sprinkle 20 mg PO DAILY Qty: 30 0RF Continued (DME) pen needle, diabetic [Comfort EZ Pen [place]] 29 gauge x 1/2" needle See Rx Instructions .ROUTE .MEDSUPPLY Qty: 100 5RF Rx Instructions: As directed- use five times daily (DME) blood sugar diagnostic Strip See Rx Instructions .ROUTE .MEDSUPPLY Qty: 100 5RF Rx Instructions: As directed to test blood sugar 4 times daily (DME) Dexcom G6 Medical Accounts Receivable Specialist Misc See Rx Instructions .Route Qty: 1 0RF Rx Instructions: Use for continuous blood glucose monitoring (DME) Dexcom G6 Sensor Device See Rx Instructions .Route Qty: 3 11RF Rx Instructions: Use for continuous blood glucose monitoring. Replace sensor every 10 days (DME) Dexcom G6 Transmitter Device See Rx Instructions .Route Qty: 1 3RF Rx Instructions: Use for continuous blood glucose monitoring. Replace transmitter every 90 days albuterol sulfate [Ventolin HFA] 90 mcg/actuation HFA aerosol inhaler 2 puff INHALATION Q6H PRN (Reason: Shortness Of Breath Or Wheezing) Qty: 18 3RF clopidogrel 75 mg tablet 75 mg PO DAILY Qty: 90 3RF bumetanide 2 mg tablet 4 mg PO BID Qty: 360 3RF rosuvastatin [Crestor] 20 mg tablet 20 mg PO HS Qty: 90 3RF Rx Instructions: for cholesterol doxepin 10 mg capsule 10 mg PO HS Qty: 90 1RF Rx Instructions: 10 mg PO at bedtime; cholecalciferol (vitamin D3) [Vitamin D3] 125 mcg (5,000 unit) tablet 5,000 unit PO QAM Qty: 90 3RF lisinopril 2.5 mg tablet 2.5 mg PO QAM Qty: 90 1RF Jardiance 25 mg tablet 25 mg PO DAILY Qty: 30 2RF (DME) Diabetic Shoes Misc See Rx Instructions .Route Qty: 1 0RF Rx Instructions: As directed insulin regular hum U-500 conc 500 unit/mL (3 mL) insulin pen 300 unit subcut UD MDD 300 units a day Qty: 18 5RF Rx Instructions: 100 units of u 500 before breakfast, lunch and dinner. Up to a total daily dose of 300 units a day cyclobenzaprine 5 mg tablet 5 mg PO BID PRN (Reason: muscle spasm) Qty: 20 0RF cetirizine 10 mg tablet 10 mg PO QAM Qty: 90 1RF warfarin 5 mg tablet See Rx Instructions PO UD Qty: 115 0RF Rx Instructions: 5mg q Thursday, Thursday, Thursday, 7.5mg x 4 days per [facility] orally use as directed; multivitamin Tablet 1 tab PO QAM cholestyramine (with sugar) 4 gram powder in packet 4 g PO BID Qty: 60 3RF Rx Instructions: administer w/meal; avoid other meds within 1hr before or 4-6hr after dose metoprolol succinate 100 mg tablet extended release 24 hr 100 mg PO DAILY nitroglycerin [Nitrostat] 0.4 mg Tablet, Sublingual 0.4 mg sublingual PRN PRN (Reason: chest pain) Qty: 14 0RF Mounjaro 15 mg/0.5 mL pen injector 15 mg subcut Q7D Discontinued hydroxyzine HCl 25 mg tablet 25 mg PO DAILY PRN (Reason: Anxiety) Qty: 30 5RF Rx Instructions: 25 mg PO daily as needed PRN; gabapentin 600 mg tablet 600 mg PO HS Qty: 90 1RF fluoxetine 60 mg tablet 60 mg PO QAM Qty: 90 3RF Discharge Orders: Discharge Order (Routine); Ordered 06/21/23 Ordered By: Fozia Ley/Other Patient Handouts: Hypoglycemia (Low Blood Sugar), Managing Type 2 Diabetes Admission Data Admit Date/Time: 06/20/23 18:42 Attending Provider: Fozia Flor Admit Provider: Micah Santos Primary Care Provider: Mike Isidro Other Providers: Micah Santos ; Stacie Oswald ; Alysia Drew ; Alden Mcqueen Coding Level of Care Code 91370 INP/OBS DISCH >30 MIN Diagnoses Intentional overdose T50.902A Hypertension I10 Dyslipidemia E78.5 Asthma J45.909 Time Spent (min) 35
[2023-06-22] MEDS ORDERED: WARFARIN SOD 5 MG TAB PO SCH (16:00)
--- NOTE | 2023-06-22 20:41 | Electrocardiogram Report ---
Test Reason : Blood Pressure : / mmHG Vent. Rate : 065 BPM Atrial Rate : 065 BPM P-R Int : 204 ms QRS Dur : 104 ms QT Int : 498 ms P-R-T Axes : 062 063 034 degrees QTc Int : 517 ms Normal sinus rhythm Low voltage QRS Incomplete right bundle branch block Inferior infarct (cited on or before 10-SEP-2022) Prolonged QT Abnormal ECG When compared with ECG of 12-SEP-2022 04:30, Premature ventricular complexes are no longer Present QT has lengthened Confirmed by Cleveland Carlson ([id number]) on 06/22/2023 8:40:27 PM Referred By: Confirmed By:Cleveland Carlson
--- NOTE | 2023-06-22 21:13 | Electrocardiogram Report ---
Test Reason : Blood Pressure : / mmHG Vent. Rate : 055 BPM Atrial Rate : 055 BPM P-R Int : 228 ms QRS Dur : 110 ms QT Int : 586 ms P-R-T Axes : 062 018 023 degrees QTc Int : 560 ms Sinus bradycardia with 1st degree A-V block Low voltage QRS Incomplete right bundle branch block Inferior infarct (cited on or before 10-SEP-2022) Prolonged QT Abnormal ECG When compared with ECG of 20-JUN-2023 12:18, No significant change was found Confirmed by Cleveland Carlson ([id number]) on 06/22/2023 9:13:30 PM Referred By: REFERRED SELF Confirmed By:Cleveland Carlson
--- NOTE | 2023-06-22 21:22 | Electrocardiogram Report ---
Test Reason : Blood Pressure : / mmHG Vent. Rate : 053 BPM Atrial Rate : 053 BPM P-R Int : 234 ms QRS Dur : 110 ms QT Int : 534 ms P-R-T Axes : 081 021 022 degrees QTc Int : 501 ms Sinus bradycardia with 1st degree A-V block Low voltage QRS Incomplete right bundle branch block Inferior infarct (cited on or before 10-SEP-2022) Prolonged QT Abnormal ECG When compared with ECG of 20-JUN-2023 17:33, QT has shortened Confirmed by Cleveland Carlson ([id number]) on 06/22/2023 9:21:35 PM Referred By: REFERRED SELF Confirmed By:Cleveland Carlson
--- NOTE | 2023-06-22 23:06 | Electrocardiogram Report ---
Test Reason : Blood Pressure : / mmHG Vent. Rate : 059 BPM Atrial Rate : 059 BPM P-R Int : 208 ms QRS Dur : 098 ms QT Int : 512 ms P-R-T Axes : 081 062 041 degrees QTc Int : 508 ms Poor data quality, interpretation may be adversely affected Sinus bradycardia Low voltage QRS Incomplete right bundle branch block Cannot rule out Inferior infarct Prolonged QT Borderline ECG When compared with ECG of 20-JUN-2023 19:47, No significant change was found Confirmed by Cleveland Carlson ([id number]) on 06/22/2023 11:06:10 PM Referred By: REFERRED SELF Confirmed By:Cleveland Carlson
[2023-06-25 09:31] LABS: Marijuana Quant, GCMS Urine 158 ng/mL (<5)
== END 2023-06-21 16:17 | disposition home or self-care (01) ==
LOC: ED 11:10 → EDINP 11:10 → SUATTDRO 18:42 → EDINP 21:32